=== PATIENT | female | born 1950 | race Caucasian/White ===

== ENCOUNTER 2024-08-15 15:08 | Emergency (ER) | payer MEDICARE, SELFPAY ==
--- NOTE | ~2024-08-15 | XR_ITS ---
EXAMINATION: XR shoulder RT min 2V DATE: 08/15/2024 16:23 INDICATION: Right shoulder injury. TECHNIQUE: 4 views of right shoulder were obtained. COMPARISON: None. FINDINGS: There is superior subluxation of humeral head with narrowing of the subacromial space, cons istent with rotator cuff tear. No fracture. There is mild osteoarthritis of acromioclavicular joint a nd severe osteoarthritis of glenohumeral joint. Median sternotomy wires are noted. IMPRESSION: 1. Polyarticular osteoarthritis. 2. Rotator cuff tear. Reviewed, dictated and finalized at location A.
--- NOTE | ~2024-08-15 | XR_ITS ---
EXAMINATION: XR hip RT min 3V w AP pelvis DATE: 08/15/2024 16:23 INDICATION: Right hip injury. TECHNIQUE: 2 views of right hip were obtained. COMPARISON: None. FINDINGS: There is lumbar levocurvature and severe spondylosis. No fracture. Right hip joint space is normal. IMPRESSION: 1. No fracture. Reviewed, dictated and finalized at location A. IMPRESSION: 1. No fracture.
--- NOTE | ~2024-08-15 | XR_ITS ---
XR hand RT min 3V Ordering provider: Gisselle Renteria APRN History: . trauma . Comparison: None. FINDINGS: BONES: No acute fracture. Osteopenia of the bones Loss of volume of the trapezoid bone. JOINT SPACES: Subluxation seen in the distal interphalangeal joints of the first, second and fifth fi ngers. Osteoarthritic changes of the first carpometacarpal joint, proximal, and distal interphalangea l joints. SOFT TISSUES: Vascular calcifications. IMPRESSION: No acute osseous abnormality right hand. Osteopenia of the bones. Polyarticular osteoarthritic changes. Polyarticular osteoarthritic changes. Reviewed, dictated and finalized at location A.
--- NOTE | ~2024-08-15 | XR_ITS ---
EXAMINATION: XR knee RT 3V DATE: 08/15/2024 16:24 INDICATION: Right knee injury. TECHNIQUE: 4 views of right knee were obtained. COMPARISON: None. FINDINGS: Alignment is normal. No fracture. There is moderate osteoarthritis and medial lateral negrito rtments and mild osteoarthritis of patellofemoral compartment. There is a moderate-sized knee joint e ffusion. IMPRESSION: 1. Moderate right knee osteoarthritis. 2. Moderate-sized right knee joint effusion. Reviewed, dictated and finalized at location A.
[2024-08-15 15:24] VITALS: BP 163/90; PULSE 58; RESP 18; TEMP 36.2; O2SAT 100
--- NOTE | 2024-08-15 15:27 | ED.EXTPRO ---
HPI - Extremity Problem General Chief complaint: Extremity Injury, Lower Stated complaint: pt fell Time Seen by Provider: 08/15/24 15:45 Source: patient, family, RN notes reviewed and old records reviewed Mode of arrival: ambulatory Limitations: no limitations History of Present Illness HPI Narrative: patient presents status post fall. Patient reportedly had a same level trip and fall accident approximately 2 hours prior to arrival. She is complaining of right shoulder pain, right knee pain, right hip pain, right hand pain. She has significant bruising to the right hip, right hand, right knee. She denies head trauma. She denies any neck pain. Patient does take Plavix, reports easy bruising. Denies any loss of consciousness. No other concerns or complaints at this time. She has not had any pain medication or ice prior to arrival Related Data Home Medications Medication Instructions Recorded Confirmed alendronate 70 mg tablet mg PO 08/15/24 allopurinol 100 mg tablet mg 08/15/24 carvedilol 6.25 mg tablet mg 08/15/24 clopidogrel 75 mg tablet mg 08/15/24 fluorouracil 5 % topical cream applic topical 08/15/24 lisinopril 2.5 mg tablet mg 08/15/24 methenamine hippurate 1 gram tablet g 08/15/24 mycophenolate sodium 180 mg mg PO 08/15/24 tablet,delayed release rosuvastatin 10 mg tablet mg 08/15/24 tacrolimus 0.5 mg capsule, mg 08/15/24 immediate-release Allergies Allergy/AdvReac Type Severity Reaction Status Date / Time atorvastatin [From Lipitor] Allergy Rash Verified 08/15/24 15:55 quinine AdvReac Nausea and Verified 08/15/24 15:56 Vomiting Review of Systems Review of Systems: All systems reviewed & are unremarkable except as noted in HPI and below Constitutional: Constitutional: Reports no additional constitutional complaints and Reports body ache(s) ( generalized status post fall) ENT: Reports system reviewed and no additional complaints, except as documented Cardiovascular: Cardiovascular: Reports no additional cardiovascular complaints Respiratory: Respiratory: Reports no additional respiratory complaints Gastrointestinal: Gastrointestinal: Reports no additional gastrointestinal complaints Musculoskeletal: Musculoskeletal: Reports no additional musculoskeletal complaints, Reports as per HPI, Reports arthralgias and Reports joint swelling Integumentary/Breasts: Skin/Breast: Reports system reviewed and no additional complaints, except as docu and Reports as per HPI Comments: hematoma right hip, bruising to right knee. Bruising to right hand PMFSH Comments At the time of my signature, I reviewed and agree with the nursing past medical, surgical, social, and family history. There is no relevant family history pertinent to the patient complaint. Exam Const: General: cooperative, no acute distress, alert and awake Orientation/consciousness: oriented to person, oriented to place and oriented to time HENMT: Head: normal to inspection, normocephalic and atraumatic Resp: Effort & Inspection: normal respiratory effort and able to speak in complete sentences Auscultation: clear to auscultation bilaterally, no crackles, no rales, no rhonchi and no wheezes Cardio: Palpation: normal PMI Rate: regular rate Rhythm: regular rhythm Heart sounds: S1 normal heart sound present and S2 normal heart sound present Skin: Trauma: other ( hematoma right hip, bruising right knee, bruising right hand) Wounds: wounds noted ( skin tear left ankle, U shaped, approximately 4 cm) Neuro: General: oriented to person, oriented to place and oriented to time Cranial nerves: Yes CN's II-XII intact bilaterally Extrem: Right upper extremity: Extremity exam: right hand tenderness of the palm and of the thumb, swelling and ecchymosis of the palm and of the thumb Right lower extremity: hip/thigh Details: tenderness Location: of the hip Location: posterolaterally and other ( hematoma) and knee Details: ecchymosis (
[2024-08-15] MEDS: ACETAMINOPHEN 500 MG TABLET 1000 MG PO (16:44)
== END 2024-08-15 17:31 | disposition home or self-care (01) ==
PROVIDERS: Emergency Provider Nurse Practitioner Family; PCP Physician Assistant
DX: S91.012A Laceration without foreign body, left ankle, initial encounter (principal); W01.0XXA Fall on same level from slipping, tripping and stumbling without subsequent striking against object, initial encounter; S46.001A Unspecified injury of muscle(s) and tendon(s) of the rotator cuff of right shoulder, initial encounter; Z79.01 Long term (current) use of anticoagulants; I10 Essential (primary) hypertension; M81.0 Age-related osteoporosis without current pathological fracture; Z95.5 Presence of coronary angioplasty implant and graft; Z94.0 Kidney transplant status
CPT/HCPCS: 73030; 73130; 73502; 73562; 99214; A4565; A9270; G0463

== ENCOUNTER 2025-03-13 10:43 | Outpatient (NON) | payer MEDICARE, SELFPAY ==
--- OUTSIDE RECORDS SUMMARY | 2025-03-13 11:00 | XMS_ITS | Encounter Summary ---
Author Organization [facility] Address [address] [place] [address] Phone Care Team Providers Care Squad Sergeant Name Role Phone Lo Arenas RN Unavailable [phone] Bunny Hoyos MD Unavailable [phone] Nidhi Nichols Primary Care Provider [phone] Chadwick Benavides MD Unavailable [phone] Bryan English MD Unavailable [phone] Encounter Details Date Type Department Care Team (Latest Contact Info) Description 09/30/2020 Orders Only [facility] Scanning, Provider Social History Tobacco Use Types Packs/Day Years Used Date Smoking Tobacco: Never Smokeless Tobacco: Never Alcohol Use Standard Drinks/Week Comments Never 0 (1 standard drink = 0.6 oz pur e alcohol) AUDIT-C Answer Date Recorded Frequency of Alcohol Consumption Never 03/21/2019 Average Number of Drinks Not on file 019 Frequency of Binge Drinking Not on file 03/06 Comments Unknown Sex and Gender Information Value Date Recorded Sex Assigned at Not on file Legal Sex Female 11:06 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 Gender Identity Female 05/12/2021 9:18 PM CDT Sexual Orientation Straight 02/10/2020 9: 45 AM CDT documented as of this encounter Plan of Treatment Not on file documented as of this encounter Procedures Procedure Name Priority Date/Time Associated Diagnosis Comments CARDIOLOGY DOCUMENT SCAN 09/30/2020 documented in this encounter Results * SCAN - CARDIOLOGY (09/30/2020) Anatomical Region Laterality Modality Other us Provider Scanning CV CARDIAC SERVICES PROCEDURES Final Result documented in this encounter Visit Diagnoses Not on filedocumented in this encounter Additional Health Concerns Infection Onset Date Last Indicated Resolved Time COVID: Suspected 12/26/2024 12/26/2024 12/26/2024 7:03 PM OLAP DEVELOPER Ring Surveillance Comment:01/12/2025- [id number] C. Auris ring surveillance. Tamie Koch 01/12/2025 01/12/2025 01/25/2025 2:00 PM C DT documented as of this encounter Care Teams Squad Sergeant Relationship Specialty Start Date End Date ParentNidhi PA [address] [facility] [address] [place] [address] PCP - General Family Practice 02/17/23 Lo Arenas RN [address] [facility] [address] [place] [address] Registered Nurse 04/10/18 Bunny Hoyos MD [address] [place] [address] Referring Physician General Surgery 03/11/21 11/15/23 Chadwick Benavides MD [address] [facility] [address] [place] [address] Referring Physician Cardiovascular Disease 04/19/23 Bryan English MD [address] [place] [address] Consulting Physician Cardiology 02/03/25 documented as of this encounter
--- OUTSIDE RECORDS SUMMARY | 2025-03-13 11:01 | XMS_ITS ---
Author Organization [facility] Address [address] [place] [address] Care Team Providers Care Manager Documentation Name Role Phone Unavailable Unavailable Unavailable Allergies, Adverse Reactions, Alerts This patient has no known allergies or adverse reactions. Problems This patient has no known problems.
--- OUTSIDE RECORDS SUMMARY | 2025-03-13 11:01 | XMS_ITS | Clinical Summary ---
Author Organization [facility] Address [facility] [place] [address] Care Team Providers Care Yarn Cleaner Name Role Phone Unavailable Primary Care Provider Unavailabl e Source Comments [facility],non-[place] Affiliates and Associated Physician Practices is amultiple site organization consisting of ambulatory clinics and hospital sitesin [place], [place]. This disclosure is being madepursuant to the Care Everywhere program and may not contain all information available regarding this patient. Last updated 18.[facility] Social History Tobacco Use Types Packs/Day Years Used Date Smoking Tobacco: Never Assessed Comments Unknown Sex and Gender Information Value Date Recorded Sex Assigned at Not on file Legal Sex Female 12:00 PM MILL SUPERVISOR Gender Identity Not on file Sexual Orientation Not on file Plan of Treatment Health Maintenance Due Date Last Done Comments BONE DENSITY TESTING 1950 COLOGUARD (AGES 45-75) - COL ON CA SCREENING 1949 COLON MONITORING 1949 COLONOSCOPY - COLON CA SCREENING 1949 CT COLONOGRAPHY - COLON CA SCREENING 1950 Colorectal Cancer Screening 1949 FIT - COLON CA SCREENING 1949 FLEX SIG - COLON CA SCREENING 1949 LIPID TESTING 1950 MAMMOGRAM 1949 HEPATITIS C SCREENING 11/18/1967 DTAP/TDAP/TD VACCINES (1 - Tdap) 1968 PNEUMOCOCCAL VACCINE 50+ (1 of 1 - PCV) 1999 ZOSTER VACCINE (1 of 2) 1999 COVID-19 VACCINE (1 - 2024-2 5 season) 2024 DEPRESSION SCREENING 11/06/2024 Respiratory Syncytial Virus (RSV) Vaccine Pt: or over 60 yrs (1 - 1-dose 75+ series) 2024 INFLUENZA VACCINE (Season Ended) 2025 HEPATITIS B VACCINE Aged Out No longe r eligible based on patient's age to complete this topic HIB VACCINE Aged Out No longer eligi ble based on patient's age to complete this topic HPV VACCINE Aged Out No longer eligi ble based on patient's age to complete this topic MENINGOCOCCAL (Group B) VACC INE SHARED DECISION-MAKING Aged Out No longer eligibl e based on patient's age to complete this topic MENINGOCOCCAL GROUPS A/C/Y/W VACCINE Aged Out No longer eligible b ased on patient's age to complete this topic Insurance MEDICARE [facility]
--- OUTSIDE RECORDS SUMMARY | 2025-03-13 11:01 | XMS_ITS | Encounter Summary ---
Author Organization [facility] Address [address] [place] [address] Phone Care Team Providers Care Plastic Welding Machine Operator Name Role Phone Lo Arenas RN Unavailable [phone] Bunny Hoyos MD Unavailable [phone] Nidhi Nichols Primary Care Provider [phone] Chadwick Benavides MD Unavailable [phone] Bryan English MD Unavailable [phone] Encounter Details Date Type Department Care Team (Latest Contact Info) Description 02/16/2021 Orders Only [facility] Scanning, Provider Social History Tobacco Use Types Packs/Day Years Used Date Smoking Tobacco: Never Smokeless Tobacco: Never Alcohol Use Standard Drinks/Week Comments Never 0 (1 standard drink = 0.6 oz pur e alcohol) AUDIT-C Answer Date Recorded Q1: How often do you have a drink containing alc ohol? Never 01/15/2021 Average Number of Drinks Not on file 021 Q3: How often do you have si x or more drinks on one occasion? Never 01/15/2021 Comments Unknown Sex and Gender Information Value Date Recorded Sex Assigned at Not on file Legal Sex Female 11:06 AM CDL PROGRAM COORDINATOR Gender Identity Female 05/12/2021 9:18 PM CDT Sexual Orientation Straight 02/10/2020 9: 45 AM CDT documented as of this encounter Plan of Treatment Not on file documented as of this encounter Procedures Procedure Name Priority Date/Time Associated Diagnosis Comments CARDIOLOGY DOCUMENT SCAN 02/16/2021 documented in this encounter Results * SCAN - CARDIOLOGY (02/16/2021) Anatomical Region Laterality Modality Other us Provider Scanning CV CARDIAC SERVICES PROCEDURES Final Result documented in this encounter Visit Diagnoses Not on filedocumented in this encounter Additional Health Concerns Infection Onset Date Last Indicated Resolved Time COVID: Suspected 12/26/2024 12/26/2024 12/26/2024 7:03 PM CDL PROGRAM COORDINATOR Ring Surveillance Comment:01/12/2025- [id number] C. Auris ring surveillance. Tamie Koch 01/12/2025 01/12/2025 01/25/2025 2:00 PM C DT documented as of this encounter Care Teams Plastic Welding Machine Operator Relationship Specialty Start Date End Date ParentNidhi PA [address] [facility] [address] [place] [address] PCP - General Family Practice 02/17/23 Lo Arenas, ERIKA [address] [facility] [address] [place] [address] Registered Nurse 04/10/18 Bunny Hoyos MD [address] [place] [address] Referring Physician General Surgery 03/11/21 11/15/23 Chadwick Benavides MD [address] [place] [address] [facility] [address] [place] [address] Referring Physician Cardiovascular Disease 04/19/23 Bryan English MD [address] [facility] [address] [place] [address] Consulting Physician Cardiology 02/03/25 documented as of this encounter
--- OUTSIDE RECORDS SUMMARY | 2025-03-13 11:02 | XMS_ITS ---
Author Organization [facility] Address [address] [place] [address] Care Team Providers Care Spare Hand Name Role Phone Lo Arenas RN Unavailable [phone] Nidhi Nichols Primary Care Provider [phone] Chadwick Benavides MD Unavailable [phone] Bryan English MD Unavailable Transplant Episode Kidney Recipient ([place], [place]) [facility] Organ Received: Left Kidney Transplanted on 10/08/2012 Marked as Active Follow-up on 10/08/2012 Kidney CoordinatorLo Arenas RN Fax: N/A Email: N/A [place] Organ Diagnosis Organ Primary Contributory Kidney Hypertensive Nephrosclerosis Retransplant Diagnosis Organ Primary Contributory Kidney Hypertensive Nephrosclerosis Infection History Noted Survival Infection Treatment Organism Resolved 08/23/2022 9 years 10 months COVID-19 09/20/2020 7 years 11 months COVID-19 0 03/10/2021 09/04/2018 5 years 10 months URI (upper res piratory infection) 03/10/2021 02/07/2013 122 days Cytomegalovirus infection (HCC) 10/24/2012 16 days Urinary tract infection Donor Information Organ ABO Source Meets Risk Criteria HLA Match Mismatches Cross Match Left Kidney Transplanted B Live A: B: DR: T cell (Negative) T cell (Negative) B cell (Negative) B cell (Negative) T cell (Negative) Left Kidney Donor Serology Results Anti-CMV No results on file EBV IgG No results on file Anti-HBcAb HBC Total: Negative HBsAg HBsAg: Negative HBV DNA No results on file Anti-HCV No results on file Anti-HIV I/II No results on file Anti-HTLV I/II No results on file RPR/VDRL No results on file EBV IgM No results on file HBsAb No results on file EBNA No results on file SARS CoV-2 No results on file Care Team Name Role Phone Fax Email Lo Arenas RN Kidney Coordinator [phone] N/A N/A Radha Lou RN Secondary Coordinator Secondary Kidney Coordinator N/A N/A N/A Lo Arenas, melter casterResearch Physicist [phone] N/A N/A Darleen Coughlin Secondary Production Intern N/A N/A N/A Heron Guajardo Primary Production Intern N/A N/A N/A Marisela Brewster Duct Cleaner [phone] N/A N/A Events Post-Transplant Pre-Transplant Admitted: 10/08/2012 Referred: 07/02/2010 Transplanted: 10/08/2012 Evaluation began: 1 Discharged: 10/19/2012 Center waitlisted: 1 Appointments (02/11/2025 - 04/13/2025) When With Visit Type Description 02/17/2025 Transplant - Johnny, Haydee Return Enco unter for aftercare following kidney transplant (Primary Dx); High risk medication use; At high risk for infection; Hypertension, unspecified type 02/28/2025 Transplant Return Encounter for a ftercare following kidney transplant (Primary Dx); Encounter for long-term current use of high risk medication; Primary hypertension; Anemia in chronic kidney disease, unspecified CKD stage; NICM (nonischemic cardiomyopathy) (HCC); Mitral regurgitation, acute; Renal osteodystrophy; S/P parathyroidectomy; Osteoporosis, unspecified osteoporosis type, unspecified pathological fracture presence Dialysis History Dialysis History Start End Type Comments Center 01/11/2006 10/08/2012 Peritoneal [facility] Dialysis Center Information Center Phone Fax Address [facility] [phone] [address] [facility] [address]
--- OUTSIDE RECORDS SUMMARY | 2025-03-13 11:02 | XMS_ITS | Clinical Summary ---
Author Organization Unknown Care Team Providers Care Manager System Name Role Phone PARENT MASHA THAPA Unavailable Unavailable GEMA PHYSICAL THERAPIST, RAJEEV Unavailable Unavailable BLANKA LOAN TELLER, ANTONIA Coon ailable Unavailable ASHLEY REGISTERED NURSE SENIOR NUCLEAR MEDICINE TECHNOLOGIST, MARSHA Brantley vailable Unavailable ARGUETA OCCUPATIONAL THERAPIST, SANCHEZ Unavailable Unavailable Payers Payer Name Policy Type Policy Number Effective Date Expira tion Date [employer] MEDICARE OON - EPISODIC NO AUTH Problems Condition Name Condition Details Condition Category Status Onset Date Resolution Date Last Treatment Date Treating Clinician Comments 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 11-06 00:00: 00 HYP HRT AND CHR KDNY DIS W HRT FAIL AND STG 1-4/UNSP CHR KDNY Active 11-06 00:00: 00 ACUTE ON CHRONIC SYSTOLIC (CONGESTIVE) HEART FAILURE Active 11-06 00:00: 00 ACUTE DIASTOLIC (CONGESTIVE) HEART FAILURE Active 11-06 00:00: 00 CHRONIC KIDNEY DISEASE, STAGE 3A Active 11-06 00:00: 00 ANEMIA IN CHRONIC KIDNEY DISEASE Active 11-06 00:00: 00 ACUTE KIDNEY FAILURE, UNSPECIFIED Active 11-06 00:00: 00 ATHSCL HEART DISEASE OF [place] CORONARY ARTERY W/O ANG PCTRS Active 11-06 00:00: 00 OLD MYOCARDIAL INFARCTION Active 11-06 00:00: 00 HYPERKALEMIA Active 11-06 00:00: 00 HYPOCALCEMIA Active 11-06 00:00: 00 SECONDARY HYPERPARATHY ROIDISM, NOT ELSEWHERE CLASSIFIED Active - 00:00: 00 THROMBOCYTOP ENIA, UNSPECIFIED Active 11-06 00:00: 00 POLYNEUROPAT HY, UNSPECIFIED Active 11-06 00:00: 00 IRON DEFICIENCY ANEMIA, UNSPECIFIED Active 11-06 00:00: 00 MONOCLONAL GAMMOPATHY Active 11-06 00:00: 00 GOUT, UNSPECIFIED Active 11-06 00:00: 00 INSOMNIA, UNSPECIFIED Active 11-06 00:00: 00 RETENTION OF URINE, UNSPECIFIED Active 11-06 00:00: 00 PREDIABETES Active 11-06 00:00: 00 PRESENCE OF AORTOCORONAR Y BYPASS GRAFT Active 11-06 00:00: 00 PRESENCE OF CORONARY ANGIOPLASTY IMPLANT AND GRAFT Active 11-06 00:00: 00 PRESENCE OF AUTOMATIC (IMPLANTABLE ) CARDIAC DEFIBRILLATO R Active 11-06 00:00: 00 KIDNEY TRANSPLANT STATUS Active 11-06 00:00: 00 ACQUIRED ABSENCE OF KIDNEY Active 11-06 00:00: 00 PERSONAL HISTORY OF OTHER MALIGNANT NEOPLASM OF KIDNEY Active 11-06 00:00: 00 PERSONAL HISTORY OF URINARY (TRACT) INFECTIONS Active 11-06 00:00: 00 PERSONAL HISTORY OF COVID-19 Active 11-06 00:00: 00 ASSISTED (CURRENT) USE OF BISPHOSPHONA MAY Active 11-06 00:00: 00 SCANNER OPERATOR (CURRENT) USE OF ANTITHROMBOT ICS/ANTIPLAT ELETS Active 11-06 00:00: 00 ASSISTED (CURRENT) USE OF ANTIBIOTICS Active 11-06 00:00: 00 ASSISTED (CURRENT) USE OF INHIBTR OF NUCLEOTIDE SYNTHESIS Active 11-06 00:00: 00 SCANNER OPERATOR (CURRENT) USE OF SYSTEMIC STEROIDS Active 11-06 00:00: 00 ASSISTED (CURRENT) USE OF CALCINEURIN INHIBITOR Active 11-06 00:00: 00 Allergies, Adverse Reactions, Alerts Allergy Name Allergy Type Status Severity Reaction(s) Onset Date Inactive Date Treating Clinician Comments ADHESIVE Propensity to adverse reactions Active 01-19 15:32: 47 ATORVASTATIN Propensity to adverse reactions Active 01-19 15:32: 58 CODEINE Propensity to adverse reactions Active 01-19 15:33: 07 TRIMETHOPRIM Propensity to adverse reactions Active 01-19 15:33: 22 QUININE Propensity to adverse reactions Active 01-19 15:33: 31 Medications Ordered Medication Name Filled Medication Name Start Date Stop Date Current Medication? Ordering Clinician Indication Dosage Frequency Signature (SIG) Comments Components acetaminoph en ER 650 mg tablet,exte nded release 02-05 00:00: 00 Yes [id number] PAIN 1 tablet EVERY 8 HOURS 1 tablet EVERY 8 HOURS (route: oral) Med Classific ation: Analgesic , Anti-infl ammatory or Antipyret ic alendronate 70 mg tablet 02-05 00:00: 00 Yes [id number] OSTEOPOROSI S 1 tablet EVERY OTHER WEEK 1 tablet EVERY OTHER WEEK (route: oral) Med Classific ation: Endocrine allopurinol 100 mg tablet 02-05 00:00: 00 Yes [id number] LOWER URIC ACID LEVELS 0.5 tablet EVERY OTHER DAY 0.5 tablet EVERY OTHER DAY (route: oral) Med Classific ation: Gout and Hyperuric emia Therapy calcitriol 0.25 mcg capsule 02-05 00:00: 00 Yes [id number] HTN 1 capsule DAILY 1 capsule DAILY (route: oral) Med Classific ation: Electroly te Balance-N utritiona l Products clopidogrel 75 mg tablet 02-05 00:00: 00 Yes [id number] BLOOD CLOT PREVENTION 1 tablet DAILY 1 tablet DAILY (route: oral) Med Classific ation: Hematolog ical Agents Coreg 6.25 mg tablet 02-05 00:00: 00 Yes [id number] HTN 1 tablet 2 TIMES DAILY 1 tablet 2 TIMES DAILY (route: oral) Med Classific ation: Cardiovas cular Therapy Agents Crestor 10 mg tablet 02-05 00:00: 00 Yes [id number] HIGH CHOLESTEROL 1 tablet DAILY 1 tablet DAILY (route: oral) Med Classific ation: Cardiovas cular Therapy Agents Full Spectrum B-Vitamin C 0.8 mg tablet 02-05 00:00: 00 Yes [id number] SUPPLEMENT 1 tablet DAILY 1 tablet DAILY (route: oral) Med Classific ation: Electroly te Balance-N utritiona l Products furosemide 40 mg tablet 02-05 00:00: 00 Yes [id number] FLUID RETENTION 1 tablet DAILY 1 tablet DAILY (route: oral) Med Classific ation: Cardiovas cular Therapy Agents gabapentin 100 mg capsule 02-05 00:00: 00 Yes [id number] NEUROPATHY Per instruc tions DIRECTED Per instructio ns DIRECTED (route: oral) Med Classific ation: Central Nervous System Agents isosorbide dinitrate 10 mg tablet 02-05 00:00: 00 03-05 23:59 :00 No [id number] HF 1 tablet 3 TIMES DAILY 1 tablet 3 TIMES DAILY (route: oral) Med Classific ation: Cardiovas cular Therapy Agents Lokelma 10 gram oral powder packet 02-05 00:00: 00 Yes [id number] HIGH POTASSIUM LEVELS 1 powder in packet DAILY 1 powder in packet DAILY (route: oral) Med Classific ation: Electroly te Balance-N utritiona l Products melatonin 5 mg capsule 02-05 00:00: 00 Yes [id number] SLEEP AID 1 capsule BEDTIME 1 capsule BEDTIME (route: oral) Med Classific ation: Central Nervous System Agents methenamine hippurate 1 gram tablet 02-05 00:00: 00 Yes [id number] UTI PREVENTION 0.5 tablet DAILY 0.5 tablet DAILY (route: oral) Med Classific ation: Genitouri nary Therapy mycophenola te sodium 180 mg tablet,damon yed release 02-05 00:00: 00 Yes [id number] ORGAN REJECTION PREVENTION 1 tablet DAILY 1 tablet DAILY (route: oral) Med Classific ation: Immunosup pressive Agents prednisone 5 mg tablet 02-05 00:00: 00 Yes [id number] ORGAN REJECTION PREVENTION 1 tablet DAILY 1 tablet DAILY (route: oral) Med Classific ation: Endocrine Senna Lax 8.6 mg tablet 02-05 00:00: 00 Yes [id number] CONSTIPATIO N 1 tablet 2 TIMES DAILY 1 tablet 2 TIMES DAILY (route: oral) Med Classific ation: Gastroint estinal Therapy Agents tacrolimus XL 0.5 mg capsule,ext ended release 24 hr 02-05 00:00: 00 Yes [id number] ORGAN REJECTION PREVENTION Per instruc tions DIRECTED Per instructio ns DIRECTED (route: oral) Med Classific ation: Immunosup pressive Agents tramadol 50 mg tablet 02-05 00:00: 00 Yes [id number] PAIN 1 tablet EVERY 6 HOURS 1 tablet EVERY 6 HOURS (route: oral) Med Classific ation: Analgesic , Anti-infl ammatory or Antipyret ic trazodone 50 mg tablet 02-05 00:00: 00 Yes [id number] SLEEP AID 0.5 tablet DAILY 0.5 tablet DAILY (route: oral) Med Classific ation: Central Nervous System Agents Tums 200 mg (as calcium carbonate 500 mg) chewable tablet 02-05 00:00: 00 Yes [id number] INDIGESTION 2 tablet DAILY 2 tablet DAILY (route: oral) Med Classific ation: Gastroint estinal Therapy Agents Vitamin D3 50 mcg (2,000 unit) capsule 02-05 00:00: 00 Yes [id number] SUPPLEMENT 1 capsule DAILY 1 capsule DAILY (route: oral) Med Classific ation: Electroly te Balance-N utritiona l Products Xanax 0.25 mg tablet 02-05 00:00: 00 Yes [id number] ANXIETY 1 tablet 3 TIMES DAILY 1 tablet 3 TIMES DAILY (route: oral) Med Classific ation: Central Nervous System Agents Immunizations Ordered Immunization Name Filled Immunization Name Date Status Comments Refusal Reason INFLUENZA OFFERED AND DECLINED, TIV (INACTIVATED) 2025-02-06 00:00:00 PNEUMOCOCCAL - DISCUSSED AND DECLINED, PPV 2025-02-06 00:00:00 Vital Signs Vital Name Observation Time Observation Value Commen ts Temperature 2025-03-10 10:46:00.000 97.6 [degF] Temperature 2025-03-10 09:06:00.000 98.1 [degF] Temperature 2025-03-06 10:43:00.000 97.5 [degF] Temperature 2025-03-06 09:11:00.000 97.9 [degF] Temperature 2025-03-03 09:00:00.000 98.5 [degF] Temperature 2025-02-27 09:29:00.000 98.2 [degF] Temperature 2025-02-24 12:02:00.000 98.3 [degF] Temperature 2025-02-24 09:13:00.000 98.1 [degF] Temperature 2025-02-20 09:34:00.000 98.9 [degF] Temperature 2025-02-19 10:52:00.000 97.6 [degF] Temperature 2025-02-17 09:07:00.000 98.4 [degF] Temperature 2025-02-13 09:25:00.000 97.4 [degF] Temperature 2025-02-12 12:59:00.000 97.7 [degF] Temperature 2025-02-11 10:31:00.000 98 [degF] Temperature 2025-02-10 17:36:00.000 99.1 [degF] Temperature 2025-02-10 14:47:00.000 99.2 [degF] Temperature 2025-02-06 11:00:00.000 97.4 [degF] BMI (%) 2025-02-06 11:00:00.000 28 kg/m2 Height 2025-02-06 11:00:00.000 64 [in_us] Pulse 2025-03-10 10:46:00.000 66 /min Pulse 2025-03-10 09:06:00.000 64 /min Pulse 2025-03-06 10:43:00.000 74 /min Pulse 2025-03-06 09:11:00.000 64 /min Pulse 2025-03-03 09:00:00.000 76 /min Pulse 2025-02-27 09:29:00.000 80 /min Pulse 2025-02-24 12:02:00.000 60 /min Pulse 2025-02-24 09:13:00.000 66 /min Pulse 2025-02-20 09:34:00.000 68 /min Pulse 2025-02-19 10:52:00.000 60 /min Pulse 2025-02-17 09:07:00.000 67 /min Pulse 2025-02-13 09:25:00.000 62 /min Pulse 2025-02-12 12:59:00.000 64 /min Pulse 2025-02-11 10:31:00.000 75 /min Pulse 2025-02-10 17:36:00.000 74 /min Pulse 2025-02-10 14:47:00.000 74 /min Pulse 2025-02-06 11:00:00.000 63 /min O2 Saturation (%) 2025-03-10 10:46:00.000 98 % O2 Saturation (%) 2025-03-10 09:06:00.000 99 % O2 Saturation (%) 2025-03-06 10:43:00.000 98 % O2 Saturation (%) 2025-03-06 09:11:00.000 98 % O2 Saturation (%) 2025-03-03 09:00:00.000 95 % O2 Saturation (%) 2025-02-27 09:29:00.000 98 % O2 Saturation (%) 2025-02-24 12:02:00.000 94 % O2 Saturation (%) 2025-02-24 09:13:00.000 96 % O2 Saturation (%) 2025-02-20 09:34:00.000 98 % O2 Saturation (%) 2025-02-19 10:52:00.000 98 % O2 Saturation (%) 2025-02-17 09:07:00.000 96 % O2 Saturation (%) 2025-02-13 09:25:00.000 93 % O2 Saturation (%) 2025-02-12 12:59:00.000 94 % O2 Saturation (%) 2025-02-11 10:31:00.000 95 % O2 Saturation (%) 2025-02-10 17:36:00.000 98 % O2 Saturation (%) 2025-02-10 14:47:00.000 95 % O2 Saturation (%) 2025-02-06 11:00:00.000 91 % Respirations 2025-03-10 10:46:00.000 18 /min Respirations 2025-03-10 09:06:00.000 18 /min Respirations 2025-03-06 10:43:00.000 16 /min Respirations 2025-03-06 09:11:00.000 18 /min Respirations 2025-03-03 09:00:00.000 17 /min Respirations 2025-02-27 09:29:00.000 20 /min Respirations 2025-02-24 12:02:00.000 18 /min Respirations 2025-02-24 09:13:00.000 18 /min Respirations 2025-02-20 09:34:00.000 20 /min Respirations 2025-02-19 10:52:00.000 18 /min Respirations 2025-02-17 09:07:00.000 18 /min Respirations 2025-02-13 09:25:00.000 18 /min Respirations 2025-02-12 12:59:00.000 18 /min Respirations 2025-02-11 10:31:00.000 16 /min Respirations 2025-02-10 17:36:00.000 20 /min Respirations 2025-02-10 14:47:00.000 18 /min Respirations 2025-02-06 11:00:00.000 20 /min Weight (lbs) 2025-03-10 09:06:00.000 149.8 [lb_av] Weight (lbs) 2025-03-06 09:11:00.000 152.8 [lb_av] Weight (lbs) 2025-03-03 09:00:00.000 155.4 [lb_av] Weight (lbs) 2025-02-27 09:29:00.000 157.8 [lb_av] Weight (lbs) 2025-02-24 09:13:00.000 160 [lb_av] Weight (lbs) 2025-02-20 09:34:00.000 163 [lb_av] Weight (lbs) 2025-02-19 10:57:00.000 162.2 [lb_av] Weight (lbs) 2025-02-17 09:07:00.000 161 [lb_av] Weight (lbs) 2025-02-13 09:25:00.000 162.2 [lb_av] Weight (lbs) 2025-02-12 13:13:00.000 162 [lb_av] Weight (lbs) 2025-02-10 17:36:00.000 164.4 [lb_av] Weight (lbs) 2025-02-06 11:00:00.000 165 [lb_av] Systolic Blood Pressure 2025-03-10 10:46:00.000 122 mm [Hg] Systolic Blood Pressure 2025-03-10 09:06:00.000 140 mm [Hg] Systolic Blood Pressure 2025-03-06 10:43:00.000 120 mm [Hg] Systolic Blood Pressure 2025-03-06 09:11:00.000 140 mm [Hg] Systolic Blood Pressure 2025-03-03 09:00:00.000 140 mm [Hg] Systolic Blood Pressure 2025-02-27 09:29:00.000 122 mm [Hg] Systolic Blood Pressure 2025-02-24 12:02:00.000 132 mm [Hg] Systolic Blood Pressure 2025-02-24 09:19:00.000 140 mm [Hg] Systolic Blood Pressure 2025-02-20 09:34:00.000 138 mm [Hg] Systolic Blood Pressure 2025-02-19 10:52:00.000 124 mm [Hg] Systolic Blood Pressure 2025-02-17 09:07:00.000 134 mm [Hg] Systolic Blood Pressure 2025-02-13 09:25:00.000 155 mm [Hg] Systolic Blood Pressure 2025-02-12 12:59:00.000 114 mm [Hg] Systolic Blood Pressure 2025-02-11 10:31:00.000 157 mm [Hg] Systolic Blood Pressure 2025-02-10 17:36:00.000 118 mm [Hg] Systolic Blood Pressure 2025-02-10 14:47:00.000 130 mm [Hg] Systolic Blood Pressure 2025-02-06 11:00:00.000 133 mm [Hg] Diastolic Blood Pressure 2025-03-10 10:46:00.000 66 mm [Hg] Diastolic Blood Pressure 2025-03-10 09:06:00.000 82 mm [Hg] Diastolic Blood Pressure 2025-03-06 10:43:00.000 70 mm [Hg] Diastolic Blood Pressure 2025-03-06 09:11:00.000 74 mm [Hg] Diastolic Blood Pressure 2025-03-03 09:00:00.000 66 mm [Hg] Diastolic Blood Pressure 2025-02-27 09:29:00.000 62 mm [Hg] Diastolic Blood Pressure 2025-02-24 12:02:00.000 72 mm [Hg] Diastolic Blood Pressure 2025-02-24 09:19:00.000 88 mm [Hg] Diastolic Blood Pressure 2025-02-20 09:34:00.000 62 mm [Hg] Diastolic Blood Pressure 2025-02-19 10:52:00.000 68 mm [Hg] Diastolic Blood Pressure 2025-02-17 09:07:00.000 72 mm [Hg] Diastolic Blood Pressure 2025-02-13 09:25:00.000 62 mm [Hg] Diastolic Blood Pressure 2025-02-12 12:59:00.000 58 mm [Hg] Diastolic Blood Pressure 2025-02-11 10:31:00.000 58 mm [Hg] Diastolic Blood Pressure 2025-02-10 17:36:00.000 74 mm [Hg] Diastolic Blood Pressure 2025-02-10 14:47:00.000 64 mm [Hg] Diastolic Blood Pressure 2025-02-06 11:00:00.000 53 mm [Hg] Plan of Treatment Planned Activity Planned Date Details Comments Future Scheduled Test [facility] WILL TEACH PATIENT/CAREGIVER ABOUT MITRAL VALVE REPAIR, HOW TO TAKE OWN PULSE AND BP TO TRACK ON A LOG, WHAT STRATEGIES TO USE TO AVOID RE-HOSPITALIZATIONS, AND WARNING SIGNS TO CALL THE AGENCY, PHYSICIAN, OR 911. [code = HOME HEALTH NURSE WILL TEACH PATIENT/CAREGIVER ABOUT MITRAL VALVE REPAIR, HOW TO TAKE OWN PULSE AND BP TO TRACK ON A LOG, WHAT STRATEGIES TO USE TO AVOID RE-HOSPITALIZATIONS, AND WARNING SIGNS TO CALL THE AGENCY, PHYSICIAN, OR 911.] Future Scheduled Test HOME HEALT H NURSE WILL TEACH PATIENT/CAREGIVER ABOUT HEART FAILURE, EDEMA, AND HOW TO WEIGH DAILY AT THE SAME TIME EVERY MORNING AFTER URINATING AND BEFORE BREAKFAST. INSTRUCT PATIENT TO CHECK FOR WEIGHT GAIN CAUSED BY INCREASED FLUID AND CONTACT THE PHYSICIAN IF 2LBS WEIGHT GAIN IN 1 DAY OR 5LBS WEIGHT GAIN IN 1 WEEK. HOME HEALTH RN TO TEACH PATIENT ABOUT WARNING SIGNS TO CONTACT THE AGENCY, PHYSICIAN, OR 911. MAY ADD 2 PRN VISITS PER MONTH FOR SIGNS/SYMPTOMS OF EXACERBATION SUCH INCREASED EDEMA, WEIGHT GAIN, SHORTNESS OF BREATH, OR FATIGUE. [code = HOME HEALTH NURSE WILL TEACH PATIENT/CAREGIVER ABOUT HEART FAILURE, EDEMA, AND HOW TO WEIGH DAILY AT THE SAME TIME EVERY MORNING AFTER URINATING AND BEFORE BREAKFAST. INSTRUCT PATIENT TO CHECK FOR WEIGHT GAIN CAUSED BY INCREASED FLUID AND CONTACT THE PHYSICIAN IF 2LBS WEIGHT GAIN IN 1 DAY OR 5LBS WEIGHT GAIN IN 1 WEEK. HOME HEALTH RN TO TEACH PATIENT ABOUT WARNING SIGNS TO CONTACT THE AGENCY, PHYSICIAN, OR 911. MAY ADD 2 PRN VISITS PER MONTH FOR SIGNS/SYMPTOMS OF EXACERBATION SUCH INCREASED EDEMA, WEIGHT GAIN, SHORTNESS OF BREATH, OR FATIGUE.] Future Scheduled Test HOME HEALT H NURSE TO INSTRUCT ON CHRONIC KIDNEY DISEASE ITS COMPLICATIONS, AND WHEN TO CONTACT THE AGENCY, PHYSICIAN OR 911 [code = HOME HEALTH NURSE TO INSTRUCT ON CHRONIC KIDNEY DISEASE ITS COMPLICATIONS, AND WHEN TO CONTACT THE AGENCY, PHYSICIAN OR 911] Future Scheduled Test PHYSICAL T HERAPIST TO EVALUATE AND TREAT [code = PHYSICAL THERAPIST TO EVALUATE AND TREAT] Future Scheduled Test OCCUPATION AL THERAPIST TO EVALUATE AND TREAT [code = OCCUPATIONAL THERAPIST TO EVALUATE AND TREAT] Future Scheduled Test SKILLED NU RSE TO OBTAIN BMP PER VENIPUNCTURE USING NECESSARY SUPPLIES FOR DIAGNOSIS OF N18.31 ON 02/06/25 THEN EVERY MONDAY AND MONDAY WITH RESULTS FAXED TO DR. MAVERICK TAYLOR OFFICE. [code = SKILLED NURSE TO OBTAIN BMP PER VENIPUNCTURE USING NECESSARY SUPPLIES FOR DIAGNOSIS OF N18.31 ON 02/06/25 THEN EVERY MONDAY AND MONDAY WITH RESULTS FAXED TO DR. MAVERICK TAYLOR OFFICE. ] Future Scheduled Test EACH ORDER ED IN-HOME OR TELEHEALTH VISIT, THE SKILLED NURSE WILL CONDUCT A COMPREHENSIVE ASSESSMENT INCLUDING VITAL SIGNS, PAIN, SAFETY, MENTAL/COGNITIVE/PSYCHOSOCIAL STATUS, MED MANAGEMENT, NUTRITION, SKIN INTEGRITY, PRESSURE ULCER PREVENTION, AND PATIENT/CAREGIVER ABILITY TO SUPPORT ORDERED CARE. SKILLED NURSE WILL INSTRUCT ON DISEASE PROCESS, MED MGMT., FALL PREVENTION AND SAFETY, INFECTION CONTROL AND PREVENTION, WARNING SIGNS, ADDRESS RESULTS OUTSIDE OF ORDERED PARAMETERS LISTED ON CARE PLAN, AND COORDINATE DISCHARGE WITH THE TREATING PROVIDER. MAY ACCEPT ORDERS FROM THE FOLLOWING PROVIDER(S) WHO WILL BE CONSULTING ON THE CERTIFIED CARE PLAN: MASHA THAPA, DR. MAVERICK DAVEY [code = EACH ORDERED IN-HOME OR TELEHEALTH VISIT, THE SKILLED NURSE WILL CONDUCT A COMPREHENSIVE ASSESSMENT INCLUDING VITAL SIGNS, PAIN, SAFETY, MENTAL/COGNITIVE/PSYCHOSOCIAL STATUS, MED MANAGEMENT, NUTRITION, SKIN INTEGRITY, PRESSURE ULCER PREVENTION, AND PATIENT/CAREGIVER ABILITY TO SUPPORT ORDERED CARE. SKILLED NURSE WILL INSTRUCT ON DISEASE PROCESS, MED MGMT., FALL PREVENTION AND SAFETY, INFECTION CONTROL AND PREVENTION, WARNING SIGNS, ADDRESS RESULTS OUTSIDE OF ORDERED PARAMETERS LISTED ON CARE PLAN, AND COORDINATE DISCHARGE WITH THE TREATING PROVIDER. MAY ACCEPT ORDERS FROM THE FOLLOWING PROVIDER(S) WHO WILL BE CONSULTING ON THE CERTIFIED CARE PLAN: MASHA THAPA, DR. MAVERICK DAVEY] Future Scheduled Test THE CER TIFYING PHYSICIAN, ASSOCIATED PHYSICIAN, NPP OR PA WITHIN THE SAME GROUP MAY APPROVE AND SIGN THE ORDER (ON ANY PAGE) ATTESTING THAT THE COMPREHENSIVE OUTCOME ASSESSMENTS, EVALUATIONS, AND HOME HEALTH CERTIFICATION PLANS SUPPORT HOMEBOUND STATUS. HOME HEALTH WEB-PORTAL DOCUMENTATION ACCESSED BY THE PHYSICIAN MUST BE INCORPORATED INTO THE MEDICAL RECORD TO CORROBORATE THE PHYSICIAN, NPP, OR PAS F2F ENCOUNTER TO SUPPORT ELIGIBILITY FOR HOME HEALTH SERVICES. [code = THE CERTIFYING PHYSICIAN, ASSOCIATED PHYSICIAN, NPP OR PA WITHIN THE SAME GROUP MAY APPROVE AND SIGN THE ORDER (ON ANY PAGE) ATTESTING THAT THE COMPREHENSIVE OUTCOME ASSESSMENTS, EVALUATIONS, AND HOME HEALTH CERTIFICATION PLANS SUPPORT HOMEBOUND STATUS. HOME HEALTH WEB-PORTAL DOCUMENTATION ACCESSED BY THE PHYSICIAN MUST BE INCORPORATED INTO THE MEDICAL RECORD TO CORROBORATE THE PHYSICIAN, NPP, OR PAS F2F ENCOUNTER TO SUPPORT ELIGIBILITY FOR HOME HEALTH SERVICES.] Goal Patient Goal - S OC- 02/06/25- TO GET STRONGER AND STAY OUT OF THE HOSPITAL Goal Provider Goal - PATIENT/CAREGIVER WILL DEMONSTRATE HOW TO TAKE AND TRACK OWN PULSE AND BLOOD PRESSURE. PATIENT/CAREGIVER WILL VERBALIZE AN UNDERSTANDING OF THE CARDIAC PROCEDURE, WHAT POST-SURGERY STRATEGIES SHOULD BE FOLLOWED TO AVOID COMPLICATIONS, PROPER MD FOLLOW-UP, AND WARNING SIGNS TO CALL THE PHYSICIAN OR 911 BY THE END OF HOME HEALTH SERVICES. Goal Provider Goal - PATIENT/CAREGIVER WILL DEMONSTRATE AND ADHERE TO WEIGHING DAILY WITH THE USE OF TRACKING LOG. PATIENT WILL VERBALIZE WAYS TO MONITOR FLUID OVERLOAD FROM OWN QUALITY OF SLEEP, EDEMA, TIGHT-FITTING CLOTHES, QUALITY OF BREATHING, AND CHANGES IN FEELING MORE TIRED OR WEEK BY THE END OF HOME HEALTH SERVICES. Goal Provider Goal - PATIENT/CAREGIVER WILL INDEPENDENTLY VERBALIZE THE DEFINITIONS OF CKD, COMPLICATIONS, AND TREATMENTS OF THE DISEASE BY. PATIENT/CAREGIVER WILL INDEPENDENTLY VERBALIZE SYMPTOMS TO REPORT TO THE PHYSICIAN BY THE END OF HOME HEALTH SERVICES. Goal Provider Goal - Goal Provider Goal - Goal Provider Goal - PATIENT/CAREGIVER WILL VERBALIZE UNDERSTANDING OF THE NEED TO COLLECT THE LAB AND TOLERATE THE LAB COLLECTION PROCEDURE WITHOUT INJURY OR INFECTION. Goal Provider Goal - PATIENT WILL BE FREE OF FALLS AND HOSPITALIZATIONS THROUGHOUT EPISODE OF CARE. PATIENT/CAREGIVER WILL UNDERSTAND AND ADHERE TO ORDERED DIET. PATIENT/CAREGIVER WILL INDEPENDENTLY MANAGE MEDICATIONS, UNDERSTAND ANY CHANGES, SIDE EFFECTS TO REPORT BY DISCHARGE. PATIENT WILL BE FREE OF INFECTION AND UNDERSTAND MEASURES OF PREVENTION. PATIENT/CAREGIVER WILL COLLABORATE WITH SKILLED NURSE TO DEVELOP POC AT SOC AND ON AN ONGOING BASIS UPDATES ARE NEEDED. UNDERSTAND PROGRESS MADE/DISCHARGE PLANNING. ADDITIONAL ORDERS WILL BE RECEIVED FROM ALTERNATE PHYSICIANS IN A TIMELY MANNER. Goal Provider Goal - A PLAN OF CARE WILL BE ESTABLISHED THAT MEETS ALL PATIENT'S SENIOR LIVING NEEDS AND COUNTER SIGNED BY PHYSICIAN. Progress Notes Progress Notes <paragraph>[Visit Date: 2024 by MARSHA RAMIREZ REGISTERED NURSE SENIOR NUCLEAR MEDICINE TECHNOLOGIST]:</paragraph><paragraph>PTNT BEING SEEN BY SN FOR RHEUMATIC VALVES. SN GREETED AT DOOR BY PTNT CG. ENTERED HOME TO FIND PTNT RESTING IN RECLINER WITH LEGS DEPENDENT. WALKER NEXT TO HER. PTNT CG PRESENT DURING VISIT. NO FALLS. NO MED CHANGES. LAB RESULTS REVIEWED WITH PTNT. BUN AND CR TRENDING DOWN. PTNT ANOX4, ACTIVELY PARTICIPATING IN CARE WITH PLEASANT AFFECT. COMPREHENSIVE ASSESSMENT COMPLETED. VSS, HR REG, LUNGS CTA, BSX4, ABD SOFT NONTENDER, BM'S NORMAL, LBM 5/3, +2 EDEMA BLE, +2 PEDAL PULSES. PAIN 7/10 LOW BACK. PTNT DENIES, CHEST PAIN, FEVER, CHILLS, AND SOB. SKIN CHECK COMPLETED. PTNT DEMONSTRATES NO BREAKDOWN IN SKIN INTEGRITY. WEIGHT 149.8 LBS PTNT APT 05/19 DR. DAVEY, 06/18 HE SOLIZ NP; 09/10 RUBY FREEMAN/BONE DENSITY SCAN, 09/17 DR. CENTENO, 12/10/25 TAVR ECHO/JUAN GUERRERO NP LABS DRAWN TODAY. SN APPLIED TOURNIQUETTE, CLEANSED SITE AND ALLOWED TO AIR DRY. 23 G BUTTERFLY 1 STICK TO LEFT AC TO COLLECT CBC, RENAL PANEL, AND TACROLIMUS TROUGH IN 2 LAVENDER AND 1 GREEN TUBE. TRANSPORTED IN BIOHAZARD BAG TO [facility]. PTNT STABLE AT DEPARTURE FROM HOME. PTNT/CG VERBALIZED UNDERSTANDING OF ALL EDUCATION PROVIDED. PTNT/CG DENY ADDITIONAL QUESTIONS/CONCERNS AND VERBALIZE SATISFACTION WITH CARE AT END OF VISIT.</paragraph> Encounters Start Date/Time End Date/Time Encounter Type Admission Type Attending [facility] Care Department Encounter ID Discharge Date Discharge Status Discharge Condition Discharge Reason Percent Goals Met 2025-02-06 00:00:00 2025-04-06 00:00:00 Outpatient NEW ADMISSION MARSHA RAMIREZ [facility] [id number]
--- OUTSIDE RECORDS SUMMARY | 2025-03-13 11:02 | XMS_ITS | Encounter Summary ---
Author Organization [facility] Address [address] [place] [address] Phone Care Team Providers Care Farm Implement Engine Mechanic Name Role Phone Lo Arenas RN Unavailable [phone] Bunny Hoyos MD Unavailable [phone] Nidhi Nichols Primary Care Provider [phone] Chadwick Benavides MD Unavailable [phone] Bryan English MD Unavailable [phone] Encounter Details Date Type Department Care Team (Latest Contact Info) Description 10/29/2018 Orders Only [facility] Scanning, Provider Social History Tobacco Use Types Packs/Day Years Used Date Smoking Tobacco: Never Smokeless Tobacco: Never Comments Unknown Sex and Gender Information Value Date Recorded Sex Assigned at Not on file 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 Gender Identity Female 05/12/2021 9:18 PM CDT Sexual Orientation Straight 02/10/2020 9: 45 AM CDT documented as of this encounter Plan of Treatment Not on file documented as of this encounter Procedures Procedure Name Priority Date/Time Associated Diagnosis Comments SCAN - RADIOLOGY/IMAGING 10/29/2018 CARDIOLOGY DOCUMENT SCAN 10/29/2018 documented in this encounter Results * SCAN - RADIOLOGY/IMAGING (10/29/2018) Anatomical Region Laterality Modality Other us Provider Scanning Final Result * SCAN - CARDIOLOGY (10/29/2018) Anatomical Region Laterality Modality Other Provider Scanning [facility] CARDIAC SERVICES PROCEDURES Final Result documented in this encounter Visit Diagnoses Not on filedocumented in this encounter Additional Health Concerns Infection Onset Date Last Indicated Resolved Time COVID: Suspected 12/26/2024 12/26/2024 12/26/2024 7:03 PM 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 [employer] ring surveillance. Tamie Koch 01/12/2025 01/12/2025 01/25/2025 2:00 PM C DT documented as of this encounter Care Teams Farm Implement Engine Mechanic Relationship Specialty Start Date End Date ParentNidhi PA [address] [facility] [address] [place] [address] PCP - General Family Practice 02/17/23 Lo Arenas, RN [address] [facility] [address] [place] [address] Registered Nurse 04/10/18 Bunny Hoyos MD [address] [place] [address] Referring Physician General Surgery 03/11/21 11/15/23 Chadwick Benavides MD [address] [place] [address] [address] [place] [address] Referring Physician Cardiovascular Disease 04/19/23 Bryan English MD [address] [place] [address] Consulting Physician Cardiology 02/03/25 documented as of this encounter
--- OUTSIDE RECORDS SUMMARY | 2025-03-13 11:02 | XMS_ITS | Encounter Summary ---
Author Organization [facility] Address [address] [place] [address] Phone Care Team Providers Care Green Chainer Name Role Phone Lo Arenas RN Unavailable [phone] Bunny Hoyos MD Unavailable [phone] Nidhi Nichols Primary Care Provider [phone] Chadwick Benavides MD Unavailable [phone] Bryan Englsih MD Unavailable [phone] Encounter Details Date Type Department Care Team (Latest Contact Info) Description 10/30/2018 Orders Only [facility] Scanning, Provider Social History Tobacco Use Types Packs/Day Years Used Date Smoking Tobacco: Never Smokeless Tobacco: Never Comments Unknown Sex and Gender Information Value Date Recorded Sex Assigned at Not on file 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 Gender Identity Female 05/12/2021 9:18 PM CDT Sexual Orientation Straight 02/10/2020 9: 45 AM CDT documented as of this encounter Plan of Treatment Not on file documented as of this encounter Procedures Procedure Name Priority Date/Time Associated Diagnosis Comments CARDIOLOGY DOCUMENT SCAN 10/30/2018 documented in this encounter Results * SCAN - CARDIOLOGY (10/30/2018) Anatomical Region Laterality Modality Other us Provider Scanning CV CARDIAC SERVICES PROCEDURES Final Result documented in this encounter Visit Diagnoses Not on filedocumented in this encounter Additional Health Concerns Infection Onset Date Last Indicated Resolved Time COVID: Suspected 12/26/2024 12/26/2024 12/26/2024 7:03 PM TRAVELING 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 [employer] ring surveillance. Tamie Koch 01/12/2025 01/12/2025 01/25/2025 2:00 PM C DT documented as of this encounter Care Teams Green Chainer Relationship Specialty Start Date End Date ParentNidhi PA [address] [place] [address] PCP - General Family Practice 02/17/23 Lo Arenas, RN [address] [facility] [address] [place] [address] Registered Nurse 04/10/18 Bunny Hoyos MD [address] [place] [address] Referring Physician General Surgery 03/11/21 11/15/23 Chadwick Benavides MD [address] [facility] [address] [place] [address] Referring Physician Cardiovascular Disease 04/19/23 Bryan English MD [address] [place] [address] Consulting Physician Cardiology 02/03/25 documented as of this encounter
--- OUTSIDE RECORDS SUMMARY | 2025-03-13 11:02 | XMS_ITS | Data Portability ---
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 air. The anteri or perito chang contou rs are smooth and the root of the mesent deion shows no infilt ration . No enlarg ed lymph nodes. GI tract: The stomac h is mild to modera tely disten ded with retain ed air and fluid partic les. The small bowel loops are unrema rkable . Colon is marked ly redund ant with divert iculos is throug hout and modera te stool retent ion. More pronou nced divert iculos is in the left lower quadra nt. Questi onable minima l hazine ss of fat planes along the distal left colon and the sigmoi d and the left lower quadra nt. Please correl ate clinic ally for pain concer nestor mild divert iculit is. There is no thicke nestor of the bowel wall. There is disten tion of the rectum with mild-t o-mode rate stool. In the depend ent machine wiper ior pelvis superf icial to the tip of the sacrum and coccyx there is soft tissue indura tion. This may be chroni c. Please correl ate for decubi tus. There may be chroni c irregu larity at the tip of the sacrum and coccyx with chroni c inflam mation /infec tion cannot be exclud ed. No abnorm al air pocket s. In the abdomi nal wall there is no mass. There is bulgin g of the latera l abdomi nal wall close to the right flank which may be chroni c and relate d to surger ies. There may be mild edema in the glutea l region s on both sides. Along the spine promin ent degene rative change s with scolio sis. No defini te acute bony abnorm alitie s. Bony pelvis shows no malali gnment . No defini te acute bony abnorm alitie s are seen in the pelvis . =====I MPRESS ION:== === 1 CT scan chest: Chroni c findin gs in the lungs with areas of atelec tasis and scarri ng especi ally in the lower lung parenc hyma with dilata tion and thicke nestor of the bronch i. No defini te eviden ce of contus ion, pneumo thorax or other infilt rates. 2. Pacema ker. Tortuo us aorta with at least modera te calcif icatio n and postop erativ e findin gs with wires along the sternu m. 3. In the medias tinum no free air or free fluid. Limite d detail to evalua te the centra l vessel s due to imagin g withou t contra st. 4. There may be mild thicke nestor of the skin in the breast s, symmet rical with hetero geneou s breast tissue with no defini te focal mass. Please correl ate clinic ally whethe r the patien t has any bruisi ng over the breast s and chest wall. 5. No acute bony abnorm alitie s in the chest. Scolio sis of mild degree with degene rative change s in the spine. 6. CT abdome n pelvis : Limite d detail due to imagin g withou t contra st and artifa cts. 7. No defini te eviden ce of acute posttr aumati c pathol ogy to the upper abdomi nal solid organs . 8. In the mesent deion there is no free air or free fluid. No mass. 9. 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 No stones . 10. Disten ded urinar y bladde r. 11. Redund ant colon with at least modera te stool retent ion. Promin ent divert iculos is as descri bed especi ally in the left lower quadra nt where mild divert iculit is cannot be exclud ed. 12. Disten ded stomac h with retain ed fluid partic les and air. ====== ====== ====== === Ordere d By: ANABELLE R GARCES Electr onical ly Signed By: Blanco Johnston MD on 6:46 PM Interp reted By: Blanco Johnston MD, 6:33 PM 1725 pt not ready [facility] [address], [place], [address], 09/21/2022 14:26:17 03/03/20 23 03/02/2023 XR, thora cic spine , 3 view No observ ation record ed. [facility]) [address], [place], [address], 03/03/2023 16:08:19 04/18/20 23 MAMMO , scree nestor, tomos ynthe sis, bilat eral [facility] [address] [facility] [place] [address] [address] This is a summar y report . The comple te report is availa ble in the patien t's medica l record . If you cannot access the medica l record , please contac t the [facility] for a detail ed fax or copy. Examin ation: Screen ing bilate ral mammog blake with 3-D tomosy nthesi s Access ion: [id number] Clinic al histor y: Benign right breast biopsy . family histor y of breast cancer . No presen t breast relate d compla ints. Compar akua: 022, 12/11/19 21, 020, 020, 020, Techni que: Digita l screen ing mammog jorge of both breast s was perfor med. 3-D tomosy nthesi s techni que was also perfor med. This study was read with the assist kimberly of [employer] er-aid ed detect ion system . Tissue densit y: There are scatte red areas of fibrog landul ar densit y. Findin gs: No suspic ious masses , malign ant appear ing calcif icatio ns, skin thicke nestor or other abnorm alitie s are presen t. No signif icant change from the prior exam. IMPRES KASIA: No suspic ious mammog raphic findin gs. Recomm endati on: 1. Routin e Screen ing, Bilate ral Assess ment: ACR BI-RAD S 2 - BENIGN FINDIN G(S) Commen ts: A negati ve or benign mammog jorge report should not delay follow -up or biopsy of a clinic ally signif icant findin g or palpab le abnorm ality. Region s of dense breast tissue may obscur e findin gs on mammog blake. Ordere d By: NIDHI Cowart onical ly Signed By: Vargas Carmichael MD on 3:32 PM Interp reted By: Vargas Carmichael MD, 023 3:24 PM [facility] [address], [place], [address], 06/06/2023 14:55:43 04/18/20 23 04/18/2023 MAMMO , scree nestor, digit al, bilat eral No observ ation record ed. [facility] [address] [facility], [place], [address], 06/06/2023 14:55:43 08/02/20 23 08/02/2023 NM, unlis ronit scan, cardi ovasc ular No observ ation record ed. [facility] [address], [place], [address], 08/02/2023 17:47:01 08/02/2008/02/2023 myoca rdial perfu kasia study w/ eject ion fract ion (PROC ) No observ ation record ed. [facility] Main Out Patient [facility] [address], [place], [address], 08/03/2023 13:35:09 08/06/2008/02/2023 trans -thor acic echoc ardio gram (TTE) (PROC ) No observ ation record ed. [facility] Main [facility] Patient [facility] [address], [place], [address], 08/06/2023 21:41:57 08/15/2008/15/2024 XR, knee No observ ation record ed. [facility] [address], [place], [address], 08/16/2024 16:21:08 Result Notes None recorded. Problems Name Problem SNOMED Code Status Onset Date Resolution Date Notes Provider Name and Address Organization Details Recorded Time [facility] 699105[facility] Active 2020 Karina Hamm [place], [place] - PENDING SALE TO [facility] 08:50:37 Coronary arterios clerosis 86658009 Active 2020 ELIER Wade Attn: Accounting ,[address], [place], [address] , [facility] - [place] 09:57:26 Primary cardiomy opathy 11237138 Active 2012 Location : None;Sev erity: Moderate ;Progres s: Stable;A dded By: Karina Hamm;Add to Current Problems : YES Not Available [facility] 7 08:44:23 End-stag e renal disease 44193679 Active 2012 Location : None;Sev erity: Moderate ;Progres s: Stable;A dded By: Karina Hamm;Add to Current Problems : NO Not Available [facility] 7 08:44:23 Gout 91931940 Active 2012 Location : None;Sev erity: Moderate ;Progres s: Stable;A dded By: Karina Hamm;Add to Current Problems : YES Not Available [facility] 7 08:44:23 History of renal transpla nt 959620153 Active 2012 Location : None;Sev erity: Moderate ;Progres s: Stable;A dded By: Karina Hamm;Add to Current Problems : YES Not Available [facility] 7 08:44:23 Cataract 260229027 Active 2012 Location : None;Sev erity: Moderate ;Progres s: Stable;A dded By: Britney Craig;Add to Current Problems : NO Not Available [facility] 7 08:44:23 Acute pharyngi tis 534488515 Completed 201211/28/2013 Location : None;Sev erity: Moderate ;Progres s: Stable;A dded By: Britney Craig;Add to Current Problems : NO Not Available [facility] 7 08:44:23 Onychomy cosis due to dermatop hyte 278668762 Completed 201403/12/2015 Location : None;Sev erity: Moderate ;Progres s: Stable;A dded By: Britney Craig;Add to Current Problems : YES Not Available [facility] 7 08:44:23 Acute sinusiti s [id number] Completed 201303/13/2014 Location : None;Sev erity: Moderate ;Progres s: Stable;A dded By: Naa Mohan;Add to Current Problems : NO Not Available [facility] 7 08:44:23 Screenin g mammogra phy Completed 201209/14/2013 Location : None;Sev erity: Moderate ;Progres s: Stable;A dded By: Karina Hamm;Add to Current Problems : NO Not Available [facility] 7 08:44:23 Candidal vulvovag initis 00281527 Completed 201209/14/2013 Location : None;Sev erity: Moderate ;Progres s: Stable;A dded By: Karina Hamm;Add to Current Problems : NO Not Available [facility] 7 08:44:23 Transien t insomnia 867203146 Completed 201211/28/2013 Location : None;Sev erity: Moderate ;Progres s: Stable;A dded By: Karina Hamm;Add to Current Problems : NO Not Available [facility] 7 08:44:23 Acute sinusiti s 28654808 Completed 201211/28/2013 Location : None;Sev erity: Moderate ;Progres s: Stable;A dded By: Karina Hamm;Add to Current Problems : NO Not Available [facility] 7 08:44:23 Acute pharyngi tis 458909387 Completed 201301/12/2014 Location : None;Sev erity: Moderate ;Progres s: Stable;A dded By: Karina Hamm;Add to Current Problems : NO Not Available [facility] 7 08:44:23 Dysuria 00672194 Completed 201301/12/2014 Location : None;Sev erity: Moderate ;Progres s: Stable;A dded By: Karina Hamm;Add to Current Problems : NO Not Available [facility] 7 08:44:23 Acute non-supp urative serous otitis media 537765745 Completed 201303/13/2014 Location : None;Sev erity: Moderate ;Progres s: Stable;A dded By: Karina Hamm;Add to Current Problems : NO Not Available [facility] 7 08:44:23 Acute maxillar y sinusiti s 01514275 Completed 201404/10/2015 Location : None;Sev erity: Moderate ;Progres s: Stable;A dded By: Karina Hamm;Add to Current Problems : YES Not Available [facility] 7 08:44:23 Transien t insomnia 972683458 Active 2013 Location : None;Sev erity: Moderate ;Progres s: Stable;A dded By: Salima Fournier i;A dd to Current Problems : YES Not Available [facility] 7 08:44:23 Idiopath ic peripher al neuropat hy 61757333 Active 2012 Location : None;Sev erity: Moderate ;Progres s: Stable;A dded By: Salima Fournier i;A dd to Current Problems : YES Not Available [facility] 7 08:44:24 Benign essentia l hyperten kasia 9104644 Active 2012 Location : None;Sev erity: Moderate ;Progres s: Stable;A dded By: Salima Fournier i;A dd to Current Problems : YES Not Available [facility] 7 08:44:24 Hyperlip idemia 05443578 Active 2012 Location : None;Sev erity: Moderate ;Progres s: Stable;A dded By: Salima Fournier i;A dd to Current Problems : YES Not Available [facility] 7 08:44:24 Tinnitus 98593846 Completed 201504/16/2016 Location : None;Sev erity: Moderate ;Progres s: Stable;A dded By: Salima Fournier i;A dd to Current Problems : NO Not Available [facility] 7 08:44:24 Generali zed abdomina l pain [id number] Completed 201503/18/2016 Location : None;Sev erity: Moderate ;Progres s: Stable;A dded By: Salima Fournier i;A dd to Current Problems : YES Not Available [facility] 7 08:44:24 Problem Notes None recorded. Procedures Surgical History Date Name Laterality Status Provider Name and Address Organization Details Recorded Time 021 repair of incisional hernia completed Karina Hamm [facility] 05/18/2021 13:33:57 021 Total hysterectomy completed Karina Hamm [facility] 2020 13:38:49 018 cardiopulmonary bypass operation completed Karina Hamm [facility] 03/20/2019 12:49:04 010 Defibrillator completed Michael Campo MA [place] - [place] 09/13/2018 11:12:52 Appendectomy completed [facility] - [place] 11/10/2016 17:15:33 Eye Surgery completed [facility] - [place] 11/10/2016 17:15:51 Hernia Repair completed [facility] 11/10/2016 17:15:55 Pacemaker completed [facility] - [place] 11/10/2016 17:16:01 Tonsillectomy completed [facility] - PENDING SALE TO [facility] 11/10/2016 17:16:07 Imaging Results Imaging Date Name Status LastModified by Organization Details LastModified Time 09/14/2022 xr elbow lt m3v completed cpa[facility]5 [address], [address], 09/21/2022 14:26:22 09/14/2022 [facility]erus lt min [facility] [address], [address], 09/21/2022 14:26:22 09/14/2022 CT, head, w/o contrast completed [address], [address], 09/21/2022 14:26:20 09/14/2022 CT cerv spine wo con completed [address], [address], 09/21/2022 14:26:18 09/14/2022 CT chest+ABD+pel wo con [facility], [address], 09/21/2022 14:26:17 03/02/2023 XR, thoracic spine, 3 view completed [facility]) [address], [place], [address], 03/03/2023 16:08:19 04/18/2023 MAMMO, screening, tomosynthesis, bilateral completed [address], [place], [address], 06/06/2023 14:55:43 04/18/2023 MAMMO, screening, digital, bilateral completed [facility], [place], [address], 06/06/2023 14:55:43 08/02/2023 NM, unlisted scan, cardiovascular completed [address], [place], [address], 08/02/2023 17:47:01 08/02/2023 myocardial perfusion study w/ ejection fraction (PROC) completed [address] Main Out Patient Lab [address] [place] [address], [place], [address], 08/03/2023 13:35:09 08/02/2023 trans-thoracic echocardiogram (TTE) (PROC) completed [address] Main Out Patient Lab [address] [place] [address], [place], [address], 08/06/2023 21:41:57 08/15/2024 XR, knee completed [facility] [address], [place], [address], 08/16/2024 16:21:08 Procedure Notes None recorded. Medical Equipment None Reported. Allergies Allergen ID Allergen Name Allergen Category Reaction Reaction Severity Criticality Documentation Date Start Date Code Code System Note Provider Name and Address Organization Details Recorded Time 212105 quinine Not available Not available Not available Not available 09/13/2018 9071 RxNorm Karina howell, [facility] 8 11:44:47 992358 atorvasta tin medicatio n rash moderate Not available 09/13/2018 15718 RxNorm Karina howell, [facility] 8 11:44:47 29241 codeine medicatio n nausea moderate Not available 11/09/20162012 2670 RxNorm React ion: nause a;Sev erity : Moder ate; Comme nt: Aller gy Type: Adver se React ion; Not Available [facility] 7 03:47:22 78482 Lipitor medicatio n rash moderate Not available 11/09/20162012 94166 5 RxNorm React ion: rash; Sever ity: Moder ate; Comme nt: Aller gy Type: Aller gy; Not Available [facility] 7 03:47:22 88037 quinapril hydrochlo ride medicatio n Not available Not available Not available 11/09/20162012 70154 9 RxNorm React ion: Shaki ng;Se verit y: Moder ate; Comme nt: StopR addie : Incor rect infor martin n;All ergy Delet ed On: 10/28;A llerg y Type: Adver se React ion; Karina howell, [facility] 8 11:44:48 07231 quinine sulfate medicatio n Not available Not available Not available 11/09/20162012 9075 RxNorm React ion: Shaki ng;Se verit y: Moder ate; Comme nt: Aller gy Type: Aller gy; Not Available [facility] 7 03:47:22 Medications Name Sig Start Date Stop Date Status Note LastModified by Organization Details LastModified Time allopurin ol 100 mg tabs Take 2 tabs po daily 03/09 completed Not Available Not Available Not Available prednison e 5 mg tabs 09/09 completed Not Available Not Available Not Available prednison e 10 mg tabs 11/10 completed Not Available Not Available Not Available levofloxa maribell 500 mg tabs 03/20 completed Not Available Not Available Not Available zolpidem tartrate 10 mg tabs Take 1 tab po q hs 03/09 completed Not Available Not Available Not Available methylpre dnisolone dose pack 4 mg tbpk 08/29 completed Not Available Not Available Not Available oxycodone hcl 5 mg tabs 03/20 completed Not Available Not Available Not Available tretinoin 0.025 % crea prn 05/18 completed Not Available Not Available Not Available carvedilo l 3.125 mg tabs one PO BID 03/09 completed Not Available Not Available Not Available ciproflox acin hcl 500 mg tabs 08/29 completed Not Available Not Available Not Available nystatin 212626 unit/gm crea prn 03/20 completed Not Available Not Available Not Available nitrofura ntoin monohydra te/macroc rystals 100 mg caps 03/09 completed Not Available Not Available Not Available metoprolo l succinate er 25 mg tb24 Take 1 tab po daily 03/20 completed Not Available Not Available Not Available pravastat in sodium 20 mg tabs 03/20 completed Not Available Not Available Not Available amoxicill in/clavul anate potassium 875-125 mg tabs 03/09 completed Not Available Not Available Not Available fluconazo le 100 mg tabs 11/10 completed Not Available Not Available Not Available rosuvasta tin calcium 10 mg tabs 03/09 completed Not Available Not Available Not Available cephalexi n 500 mg caps 03/20 completed Not Available Not Available Not Available rosuvasta tin calcium 5 mg tabs one PO abida 03/20 completed Not Available Not Available Not Available gabapenti n 100 mg caps 09/09 completed Not Available Not Available Not Available fluconazo le 150 mg tabs 03/09 completed Not Available Not Available Not Available prednison e 20 mg tabs 07/27 completed Not Available Not Available Not Available azithromy maribell 250 mg tabs 08/23 completed Not Available Not Available Not Available tramadol hcl 50 mg tabs 03/20 completed Not Available Not Available Not Available clindamyc in phosphate 1 % gel 05/18 completed Not Available Not Available Not Available nitrofura ntoin macrocrys tals 100 mg caps 11/10 completed Not Available Not Available Not Available amoxicill in 500 mg capsule TAKE 1 CAPSULE BY MOUTH TWICE DAILY FOR 10 DAYS 02/28 completed Not Available Not Available Not Available furosemid e 40 mg tablet TAKE 1 TABLET BY MOUTH ONCE DAILY active Not Available Not Available No t Available isosorbid e dinitrate 10 mg tablet TAKE 1 TABLET BY MOUTH THREE TIMES DAILY active Not Available Not Available No t Available carvedilo l 6.25 mg tablet Take 1 tablet twice a day by oral route for 90 days. active Not Available Not Available No t Available trazodone 50 mg tablet TAKE 1/2 (ONE-BRIAN F) TABLET BY MOUTH EVERY DAY AT BEDTIME NEEDED active Not Available Not Available No t Available pravastat in 40 mg tablet Take 1 tablet(s ) by mouth at bedtime 10/28 completed RxNorm: 678931;A llow Substitu tion: True Not Available Not Available Not Available fluconazo le 150 mg tablet USE DIRECTED FOR 1 DAY 10/09 completed Not Available Not Available Not Available sucralfat e 1 gram tablet TAKE ONE TABLET BY MOUTH FOUR TIMES DAILY BEFORE MEALS 09/17 completed Not Available Not Available Not Available prednison e 20 mg tablet 05/18 completed Not Available Not Available Not Available alendrona te 70 mg tablet active Not Available Not Available Not Available fluoroura cil 5 % topical cream APPLY CREAM TOPICALL Y TO AFFECTED AREA ON LEFT EAR TWICE DAILY FOR 6 WEEKS active Not Available Not Available No t Available prednison e 5 mg tablet Take 1 tablet every day by oral route. active Not Available Not Available No t Available Zithromax Z-Henry 250 mg tablet Take 2 tablet(s ) by mouth on day 1 then 1 tablet every day for the next 4 days. 08/23 completed Not Available Not Available Not Available Mango Low Dose Aspirin 81 mg tablet,de layed release Take 1 tablet every day by oral route. 06/07 completed Not Available Not Available Not Available azathiopr ine 50 mg tablet Take 1 tablet every day by oral route. 08/23 completed Not Available Not Available Not Available clopidogr el 75 mg tablet TAKE ONE TABLET BY MOUTH ONCE DAILY active Not Available Not Available No t Available ciproflox acin 250 mg tablet TAKE 1 TABLET BY MOUTH TWICE DAILY FOR 10 DAYS 11/19 completed Not Available Not Available Not Available amlodipin e 5 mg tablet TAKE 1 TABLET BY MOUTH ONCE DAILY active Not Available Not Available No t Available allopurin ol 100 mg tablet Take 1 tablet(s ) by mouth on Monday, and Monday active Not Available Not Available No t Available ciproflox acin 500 mg tablet TAKE 1 TABLET BY MOUTH TWICE DAILY FOR 3 DAYS 02/28 completed Not Available Not Available Not Available tramadol 50 mg tablet Take 1 tablet 3 times a day by oral route as needed. active Not Available Not Available No t Available carvedilo l 3.125 mg tablet 09/21 completed Not Available Not Available Not Available Tessalon Perles 100 mg capsule Take 1 capsule 3 times a day by oral route. 03/09 completed Not Available Not Available Not Available methenami ne hippurate 1 gram tablet TAKE 1/2 (ONE-BRIAN F) TABLET BY MOUTH ONCE DAILY FOR THE FIRST 5 DAYS OF THE MONTH active Not Available Not Available No t Available omeprazol e ER 20 mg capsule,e xtended release Take 1 capsule twice a day by oral route. 07/27 completed Not Available Not Available Not Available Lasix 20 mg tablet Take 1 tablet(s ) by mouth daily 08/11 completed RxNorm: 317238;A llow Substitu tion: True Not Available Not Available Not Available cephalexi n 500 mg capsule Take 1 capsule every 8 hours by oral route for 7 days. 2024 active Not Available Not Available Not Avai lable pantopraz ole 40 mg tablet,de layed release TAKE ONE TABLET BY MOUTH TWICE DAILY 05/18 completed Not Available Not Available Not Available nitrofura ntoin macrocrys susan 100 mg capsule one po daily prn 07/27 completed RxNorm: 4800052; Allow Substitu tion: True Not Available Not Available Not Available lisinopri l 10 mg tablet Take 1 po BID 08/14 completed RxNorm: 619868;A llow Substitu tion: True Not Available Not Available Not Available nitroglyc ariana 0.4 mg sublingua l tablet DISSOLVE ONE TABLET UNDER THE TONGUE EVERY 5 MINUTES NEEDED FOR CHEST PAIN. 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 03/20 completed Not Available Not Available Not Available mupirocin 2 % topical ointment 06/07 completed Not Available Not Available Not Available gabapenti n 100 mg capsule TAKE ONE CAPSULE BY MOUTH IN THE MORNING AND TWO AT BEDTIME 2024 active Not Available Not Available Not Avai lable metoprolo l succinate ER 25 mg tablet,ex tended release 24 hr Take 1 tablet every day by oral route. 07/27 completed Not Available Not Available Not Available calcitrio l 1 mcg/mL oral solution Take 1 ml by mouth daily 08/11 completed RxNorm: 811365;A llow Substitu tion: True Not Available Not Available Not Available levofloxa maribell 500 mg tablet Take 1 tablet every 24 hours by oral route for 7 days. 03/20 completed Not Available Not Available Not Available estradiol 0.01% (0.1 mg/gram) vaginal cream APPLY 1/4 OF THE APPLICAT OR TO THE VAGINA 2 TO 3 TIME PER WEEK active Not Available Not Available No t Available zolpidem 10 mg tablet Take 1 tablet every day by oral route at bedtime. 05/18 completed on gabapent in now Not Available Not Available Not Available methylpre dnisolone 4 mg tablets in a dose pack Take 1 dose pk by oral route. 08/29 completed Not Available Not Available Not Available colchicin e 0.6 mg tablet TAKE 1 TABLET BY MOUTH DAILY NEEDED 09/17 completed Not Available Not Available Not Available Imdur 30 mg tablet,ex tended release Take 1 tablet(s ) by mouth qam 08/14 completed RxNorm: 282665;A llow Substitu tion: True Not Available Not Available Not Available cefdinir 300 mg capsule TAKE 1 CAPSULE BY MOUTH EVERY 12 HOURS FOR 10 DAYS 10/09 completed Not Available Not Available Not Available Prograf 1 mg capsule take 2 tabs po q am and 1 every hs active Not Available Not Available No t Available lisinopri l 2.5 mg tablet TAKE 1 TABLET BY MOUTH TWICE DAILY 11/19 completed Not Available Not Available Not Available calcitrio l 0.25 mcg capsule TAKE 1 CAPSULE BY MOUTH ONCE DAILY active Not Available Not Available No t Available amoxicill in 875 mg-potass ium clavulana te 125 mg tablet TAKE 1 TABLET BY MOUTH TWICE DAILY FOR 10 DAYS 10/09 completed Not Available Not Available Not Available amoxicill in 500 mg-potass ium clavulana te 125 mg tablet TAKE 1 TABLET BY MOUTH TWICE DAILY FOR 10 DAYS 09/17 completed Not Available Not Available Not Available tacrolimu s 0.5 mg capsule, immediate -release active Not Available Not Available Not Available cyclobenz aprine 5 mg tablet Take 1 tablet 3 times a day by oral route as needed. 10/09 completed Not Available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 failing health, requesting ambien. Has only tried melatonin which does help a little. No snoring history reported.Also very concerned about her bone health, is seeing a bone health specialist.Had normal cologuard but transplant team wants her to have colonoscopy due to her immune suppressive drugs.Requesting mammogram order, hospital told her every 2 years, but I told her she needs mamms every year.Due for pneumovax, we are out of stock today Went over medications with pt pt states that she doesnt need any refills on todays visit. ELIER Wade Attn: Accounting,[address] [place], [address], [facility] 03/01/2023 08:08:57 3 text/html MAW 2Reported bypatient.Diet and Nutrition:healthy diet Fracture Risk:no history of fractures; no sudden unexplained fractures Concentration and Memory:no decreased concentrating ability; no memory lapses or loss; does not forget words Speech/Motor difficulties:no speech difficulties; no difficulty expressing formulated concepts; no difficulty with fine manipulative tasks; no difficulty writing/copying; no slowed reaction time; does not knock things over when trying to pick them up Hearing:wears hearing aids Vision:vision change Activities of Daily Living:able to bathe with limited or no assistance; able to contol urination and bowels; able to dress with limited or no assistance; able to feed self with limited or no assistance; able to get out of chair or bed with limited or no assistance; able to groom with limited or no assistance; able to toilet with limited or no assistance Instrumental Activities of Daily Living:able to do house work with limited or no assistance; able to grocery shop with limited or no assistance; able to manage medications with limited or no assistance; able to manage money with limited or no assistance; able to prepare meals with limited or no assistance; able to use the phone with limited or no assistance Falls Risk Assessment:no frequent falls while walking; no fall in the past year; no fall since last visit; no dizziness/vertigo Home Safety:no unsafe ariel hazzards; no unsafe stairs; working smoke/CO detectors; practicing 'safer sex'; no fire arms; has hand bars in the bathroom/shower; good lighting in the home Just lost her 5 weeks ago to CHF, liver failure and renal failure. ELIER Wade Attn: Accounting,[address] [place], [address], [facility] 10/09/2023 22:26:01 5 text/html MAW 2Reported bypatient.Diet and Nutrition:healthy diet Fracture Risk:no history of fractures; no sudden unexplained fractures Concentration and Memory:no decreased concentrating ability; no memory lapses or loss; does not forget words Speech/Motor difficulties:no speech difficulties; no difficulty expressing formulated concepts; no difficulty with fine manipulative tasks; no difficulty writing/copying; no slowed reaction time; does not knock things over when trying to pick them up Hearing:wears hearing aids Vision:blurred vision Activities of Daily Living:able to bathe with limited or no assistance; able to contol urination and bowels; able to dress with limited or no assistance; able to feed self with limited or no assistance; able to get out of chair or bed with limited or no assistance; able to groom with limited or no assistance; able to toilet with limited or no assistance Instrumental Activities of Daily Living:able to do house work with limited or no assistance; able to grocery shop with limited or no assistance; able to manage medications with limited or no assistance; able to manage money with limited or no assistance; able to prepare meals with limited or no assistance; able to use the phone with limited or no assistance Falls Risk Assessment:no frequent falls while walking; no fall in the past year; no fall since last visit; no dizziness/vertigo Home Safety:no unsafe ariel hazzards; no unsafe stairs; working smoke/CO detectors; practicing 'safer sex'; no fire arms; has hand bars in the bathroom/shower; good lighting in the home Admitted to [facility] 11/10 for chest pain, had rectal bleeding and had colonoscopy and EGD 11/12. Follows closely with nephrology transplant team, labs reviewed from 11/18 per Martínez Benavides. Was transfused one unit of blood and 3 U of iron. Had had an episode of abd/flank pain and gross bloody stool the week before admission. None since. ELIER Wade Attn: Accounting,[address] [place], [address], [facility] 11/19/2024 15:54:45 OBGyn Episode No OBEpisode recorded.
--- OUTSIDE RECORDS SUMMARY | 2025-03-13 11:04 | XMS_ITS | Encounter Summary ---
Author Organization [facility] Address [address] [place] [address] Phone Care Team Providers Care Substation Operator Chief Name Role Phone Lo Arenas RN Unavailable [phone] Bunny Hoyos MD Unavailable Nidhi Nichols Primary Care Provider [phone] Chadwick Benavides MD Unavailable [phone] Bryan English MD Unavailable Encounter Details Date Type Department Care Team (Late st Contact Info) Description 09/06/2018 Telephone [facility] Cardiology [address] [facility] [address] [facility] [address] [place] [address] [place] [address] Fredy Ricks MD [address] [facility] [address] [place] [address] Social History Tobacco Use Types Packs/Day Years Used Date Smoking Tobacco: Never Smokeless Tobacco: Never Comments Unknown Sex and Gender Information Value Date Recorded Sex Assigned at Not on file Legal Sex Female 11:06 AM [employer] Gender Identity Female 05/12/2021 9:18 PM CDT Sexual Orientation Straight 02/10/2020 9: 45 AM CDT documented as of this encounter Plan of Treatment Not on file documented as of this encounter Visit Diagnoses Not on filedocumented in this encounter Additional Health Concerns Infection Onset Date Last Indicated Resolved Time COVID: Suspected 12/26/2024 12/26/2024 12/26/2024 7:03 PM INSULATION FOREM[employer] Ring Surveillance Comment:01/12/2025- [address]2585 C. Auris ring surveillance. Tamie Zee 01/12/2025 01/12/2025 01/25/2025 2:00 PM C DT documented as of this encounter Care Teams Substation Operator Chief Relationship Specialty Start Date End Date ParentNidhi PA [address] [place] [address] PCP - General Family Practice 02/17/23 Lo Arenas, ERIKA [address] [facility] [address] [place] [address] Registered Nurse 04/10/18 Bunny Hoyos MD [address] [place] [address] Referring Physician General Surgery 03/11/21 11/15/23 Chadwick Benavides MD [address] [facility] [address] [place] [address] Referring Physician Cardiovascular Disease 04/19/23 Bryan English MD [address] [place] [address] Consulting Physician Cardiology 02/03/25 documented as of this encounter
--- OUTSIDE RECORDS SUMMARY | 2025-03-13 11:04 | XMS_ITS | Referral Summary ---
Author Organization [facility] Address [address] [place] [address] Care Team Providers Care Care Program Director Name Role Phone Lo Arenas RN Unavailable [phone] Nidhi Nichols Primary Care Provider Chadwick Bneavides MD Unavailable [phone] Bryan English MD Unavailable [phone] Encounters Date Type Department Care Team Description 03/10/2025 9:48 AM CDT - 03/10/2025 11:59 PM CDT Hospital Encounter [facility] [address] [place] [address] Discharge Disposition: Discharge to home or self care 03/06/2025 Telephone [facility] Cardiology [address] [facility] 8th [place] [address] [place] [address] Jaimie Freire NP ABX 03/06/2025 10:10 AM CDT - 03/06/2025 11:59 PM CDT Hospital Encounter [facility] [address] [place] [address] Discharge Disposition: Discharge to home or self care 03/05/2025 Telephone [facility] Cardiology [facility] Office Building [address] [place] [phone] Chelsey Alejandra CMA 03/05/2025 1:00 PM CDT Office Visit [facility] Cardiology [facility] Office Building [address] [place] [address] Jaimie Freire NP S/P mitral valve clip implantation (Primary Dx); Nonrheumatic tricuspid valve regurgitation; Coronary artery disease involving [place] coronary artery of [place] heart without angina pectoris; Primary hypertension; History of kidney transplant 03/05/2025 11:30 AM CDT Ancillary Procedure [facility] [address] [facility] [address] [place] [address] S/P mitral valve clip implantation 03/03/2025 9:49 AM CDT - 03/03/2025 11:59 PM CDT Hospital Encounter [facility] [address] [place] [address] Kidney replaced by transplant; Encounter for long-term (current) use of medications Discharge Disposition: Discharge to home or self care 02/28/2025 10:30 AM CDT Office Visit [facility] Nephrology [address] [place] [address] 5th [place] [address] Encounter for aftercare following kidney transplant (Primary Dx); Encounter for long-term current use of high risk medication; Primary hypertension; Anemia in chronic kidney disease, unspecified CKD stage; NICM (nonischemic cardiomyopathy) (HCC); Mitral regurgitation, acute; Renal osteodystrophy; S/P parathyroidectomy; Osteoporosis, unspecified osteoporosis type, unspecified pathological fracture presence 02/27/2025 Telephone [facility] Transplant Kidney [address] [facility] [address] [phone] [place] [address] Lo Arenas RN 02/27/2025 10:10 AM CDT - 02/27/2025 11:59 PM CDT Hospital Encounter [facility] [address] [place] [address] Discharge Disposition: Discharge to home or self care 02/24/2025 10:00 AM CDT - 02/24/2025 11:59 PM CDT Hospital Encounter [facility] [address] [place] [address] Discharge Disposition: Discharge to home or self care 02/21/2025 Telephone [facility] Transplant Kidney [address] [facility] [address] [id number] [place] [address] Bryan Paty 02/20/2025 10:20 AM CDT - 02/20/2025 11:59 PM CDT Hospital Encounter [facility] [address] [place] [address] Kidney replaced by transplant; Encounter for long-term (current) use of medications Discharge Disposition: Discharge to home or self care 02/17/2025 10:01 AM CDT - 02/17/2025 11:59 PM CDT Hospital Encounter [facility] [address] [place] [address] Discharge Disposition: Discharge to home or self care 02/17/2025 10:45 AM CDT Office Visit [facility] Nephrology [address] [place] [address] 5th [place] [address] [place] [address] Sarahi Turner MD Encounter for aftercare following kidney transplant (Primary Dx); High risk medication use; At high risk for infection; Hypertension, unspecified type 02/14/2025 Telephone [facility] Transplant Kidney [address] [facility] [address] [phone] [place] [address] Gely Gold 02/13/2025 1:09 PM CDT - 02/13/2025 11:59 PM CDT Hospital Encounter [facility] [address] [place] [address] Discharge Disposition: Discharge to home or self care 02/13/2025 Telephone [facility] [address] [place] [address] Nidhi Stewart RPh 02/10/2025 10:24 AM CDT - 02/10/2025 11:59 PM CDT Hospital Encounter [facility] [address] [place] [address] Discharge Disposition: Discharge to home or self care 02/07/2025 Telephone [facility] Cardiology [address] [facility] 8th [place] [address] [place] [address] Bryan English MD 02/07/2025 Orders Only [facility] Transplant Kidney [address] [facility] [address] [phone] [place] [address] Heron Guajardo Kidney replaced by transplant (Primary Dx); Encounter for long-term (current) use of medications 02/07/2025 Telephone [facility] Transplant Kidney [address] [facility] [address] [phone] [place] [address] Paty Adams 02/06/2025 Telephone [facility] Transplant Kidney [address] [facility] [address] [phone] [place] [address] Heron Guajardo 01/11/2025 9:15 PM CHANGE MANAGEMENT ANALYST - 02/04/2025 1:40 PM CDT Hospital Encounter [address] [address] Bunny Islas MD PhD Manuel, MD Yohannes Maldonado, MD Roberto Rogel, MD Octavio Levy Puja, MD Mitral regurgitation, acute (Primary Dx); Urinary retention; S/P mitral valve clip implantation; History of renal transplant; MGUS (monoclonal gammopathy of unknown significance); Hyperkalemia; Hyponatremia Discharge Disposition: Discharge to home, home health skilled care 01/31/2025 Orders Only [facility] Transplant Kidney [address] [facility] [address] [phone] [place] [address] Lo Arenas, ERIKA Kidney replaced by transplant (Primary Dx) 01/28/2025 12:00 PM CDT Ancillary Procedure [facility] Vascular [facility] IP [address] [facility] [address] [place] [address] 01/28/2025 Telephone [facility] Cardiology [address] [facility] 8th [place] [address] [place] [address] Bryan English MD 01/28/2025 Telephone [facility] Cardiology [address] [facility] 8th [place] [address] [place] [phone] Renny Villanueva 01/27/2025 Telephone [facility] Surgery [address] [facility] Floor 5 [place] [address] SebastianDanna MA 01/27/2025 8:30 AM CDT - 01/27/2025 11:50 AM CDT Surgery [facility] Electrophysiology Lab 1 [place] [phone] Bryan English MD MITRAL VALVE REPAIR WITH CLIP, (1ST CLIP) [id number] 01/27/2025 8:40 AM CDT Anesthesia Event [facility] Electrophysiology Lab 1 [place] [phone] Sascha Yi MD Deibel, Lori, NP 01/23/2025 Orders Only [facility] Scanning, Provider 01/21/2025 Telephone [facility] Cardiology [address] [facility] Medical Office Building [address] [place] [address] Sloane Covarrubias RN 01/20/2025 10:55 AM CDT - 01/20/2025 12:10 PM CDT Surgery [facility] 1 [place] [address] Bunny Islas MD PhD RIGHT HEART CATHETERIZATION [id number] 01/15/2025 Documentation [facility] Cardiology [address] [facility] Medicine 8th [place] [address] [place] [address] Melody Hernández MD 01/15/2025 10:53 AM CDT Anesthesia Event [facility] 1 [place] [address] Caitlin Gastelum MD 12/26/2024 12:18 PM CHANGE MANAGEMENT ANALYST - 01/11/2025 8:25 PM CHANGE MANAGEMENT ANALYST Hospital Encounter [facility] 5 Med Surg [address] [place] [address] Robbie Shearer DO Smith, MD Marielos Hunter, MD Nile Becerra, Joseph Nicolas MD Anasarca associated with disorder of kidney (Primary Dx); BRAYDEN (acute kidney injury); Acute cystitis without hematuria; Hyponatremia; History of renal transplant; Urinary tract infection without hematuria, site unspecified; Urinary retention Discharge Disposition: Discharge to a short term hospital for IP 01/08/2025 Telephone [facility] Transplant Kidney [address] [facility] [address] [phone] [place] [address] Lo Arenas, RN 01/06/2025 TCC Initial Eligibility Review [facility] [address] [place] [address] Preeti Mon NP 01/06/2025 Orders Only [facility] Physicians [facility] [address] [facility] [address] [place] [address] Kimberly Gardner MD Urinary tract infection without hematuria, site unspecified (Primary Dx) 01/02/2025 Telephone [facility] Transplant Kidney [address] [facility] [address] [id number] [place] [address] Darleen Coughlin 12/26/2024 Telephone [facility] Transplant Kidney [address] [facility] [address] [id number] [place] [address] oL Arenas, ERIKA 12/26/2024 Telephone [facility] Transplant Kidney [address] [facility] [address] [id number] [place] [address] Gely Gold 12/25/2024 Orders Only [facility] Nephrology [address] [facility] 5th [place] [address] [place] [address] Sarahi Turner MD 12/23/2024 Telephone [facility] Transplant Kidney [address] [facility] [address] [phone] [place] [address] Lo Arenas RN from Last 3 Months Allergies Active Allergy Reactions Criticality Noted Date Comments Adhesive Rash,Other (See comments) Medium 01/15/2021 Raw skin Atorvastatin Rash Medium Sulfamethoxazole-Trime thoprim Itching Low 09/03/2018 Codeine Nausea only Medium 08/07/2013 Quinine Chills,Fatigue Low Received during hemodialysis Medications ALPRAZolam (XANAX) 0.25 mg tabletIndication s:anxiety Take 1 tablet (0.25 mg total) by mouth 3 (three) times a day as needed Active calcium carbonate (TUMS) 500 mg (200 mg elemental) chewable tablet Take 2 tablet/chew tab (1,000 mg total) by mouth every morning Active cholecalciferol (VITAMIN D-3) 2,000 unit tablet Take 1 tablet (2,000 Units total) by mouth every morning 012 Active rosuvastatin (CRESTOR) 10 mg tablet Take 1 tablet (10 mg total) by mouth nightly Active clopidogreL (Plavix) 75 mg tablet Take 1 tablet (75 mg total) by mouth daily 30 tablet 11 021 Active gabapentin (NEURONTIN) 100 mg capsule Take 2 capsules (200 mg total) by mouth as directed Take 100 mg in AM, 200 mg in PM 90 capsule 021 2029 Active senna-docusate (PERICOLACE) 8.6-50 mg Take 1 tablet by mouth 2 (two) times a day as needed for constipation for up to 10 doses 10 tablet 021 Active traMADoL (ULTRAM) 50 mg tablet Take 1 tablet (50 mg total) by mouth every 6 (six) hours as needed for pain for up to 20 doses 20 tablet 021 Active acetaminophen ER (TYLENOL) 650 mg 8 hr tablet Take 1 tablet (650 mg total) by mouth daily as needed for pain Active traZODone (DESYREL) 50 mg tablet TAKE 1/2 (ONE-HALF) TABLET BY MOUTH EVERY DAY AT BEDTIME NEEDED 023 Active carvediloL (COREG) 6.25 mg tablet 1 tablet (6.25 mg total) 2 (two) times a day with meals 023 Active alendronate (FOSAMAX) 70 mg tabletIndication s:Age-related osteoporosis without current pathological fracture 1 tablet every 2 weeks. Take in the morning with a full glass of water, on an empty stomach, and do not take anything else by mouth or lie down for the next 30 min. 2 tablet 11 Active methenamine (HIPREX) 1 gram tablet Take 1/2(one half) tablet by mouth once daily on the first 5 days of the month. 5 tablet 11 Active amLODIPine (NORVASC) 5 mg tablet Take 1 tablet (5 mg total) by mouth daily Active melatonin 5 mg tablet Take 1 tablet (5 mg total) by mouth nightly as needed (sleep) Active allopurinoL (ZYLOPRIM) 100 mg tablet Take 0.5 tablets (50 mg total) by mouth every other day 025 2025 Active nitroglycerin (NITROSTAT) 0.[address] 1 tablet (0.4 mg total) under the tongue every 5 (five) minutes as needed for chest pain 90 tablet 1 025 2024 Active furosemide (LASIX) 40 mg tablet Take 1 tablet (40 mg total) by mouth daily 30 tablet 2 025 2025 Active sodium chloride (OCEAN) 0.65 % nasal spray Administer 1 spray into each nostril every 2 (two) hours as needed for rhinitis [address] (MYFORTIC) 180 mg EC tabletIndication s:Kidney replaced by transplant TAKE ONE TABLET BY MOUTH EVERY DAY 90 tablet 3 Active tacrolimus 0.5 mg immediate-releas e capsule Take 4 capsules (2 mg total) by mouth daily before breakfast AND 3 capsules (1.5 mg total) nightly. 630 capsule 3 025 2025 Active predniSONE (DELTASONE) 5 mg tabletIndication s:Kidney replaced by transplant Take 1 tablet (5 mg) by mouth daily 30 tablet 11 025 2025 Active amoxicillin (AMOXIL) 500 mg tablet/capsule Take 4 caps (2000 mg) 1 hour prior to procedure. 8 tablet/caps ule 1 025 Active vitamin B complex-vitamin C-folic acid (NEPHRO-CHRIS) 0.8 mg tabletIndication s:Vitamin Deficiency Prevention Take 0.8 mg by mouth daily 90 tablet 3 022 2024 Discontinued(T herapy completed) predniSONE (DELTASONE) 5 mg tabletIndication s:Kidney replaced by transplant Take 1 tablet (5 mg) by mouth daily 30 tablet 11 024 [address] (MYFORTIC) 180 mg EC tabletIndication s:Kidney replaced by transplant TAKE ONE TABLET BY MOUTH EVERY DAY 90 tablet 3 024 2024 Discontinued calcitRIOL (ROCALTROL) 0.25 mcg capsule Take 1 capsule (0.25 mcg total) by mouth daily 30 capsule 11 025 2024 Discontinued tacrolimus 0.5 mg immediate-releas e capsule Take 4 capsules (2 mg total) by mouth every morning AND 3 capsules (1.5 mg total) nightly. 210 capsule 1 2024 Discontinued(R eorder) isosorbide dinitrate (ISORDIL) 10 mg tabletIndication s:chronic heart failure Take 1 tablet (10 mg total) by mouth 3 (three) times a day 90 tablet 11 025 2024 Discontinued sodium zirconium cyclosilicate (LOKELMA) 10 gram packetIndication s:hyperkalemia Take 1 packet (10 g total) by mouth daily 30 packet 025 2024 Discontinued(T herapy completed) tacrolimus 0.5 mg immediate-releas e capsule Take 4 capsules (2 mg total) by mouth every morning AND 3 capsules (1.5 mg total) nightly. 210 capsule 1 025 2024 Discontinued amoxicillin (AMOXIL) 500 mg tablet/capsule Take 4 caps (2000 mg) 1 hour prior to procedure. 8 tablet/caps ule 1 025 2024 Discontinued amoxicillin (AMOXIL) 500 mg tablet/capsule Take 4 caps (2000 mg) 1 hour prior to procedure. 8 tablet/caps ule 1 025 2024 Discontinued(R eorder) tacrolimus 0.5 mg immediate-releas e capsule TAKE FOUR CAPSULES BY MOUTH EVERY MORNING AND TAKE THREE CAPSULES BY MOUTH EVERY EVENING 210 capsule 1 025 2024 Discontinued(R eorder) amoxicillin (AMOXIL) 500 mg tablet/capsule Take 4 caps (2000 mg) 1 hour prior to procedure. 8 tablet/caps ule 1 025 2024 Discontinued(R eorder) Hospital, Clinic, or Other Facility Administered Medication Ordered Dose Route Frequency Start Date End Date Status perflutren protein-a (OPTISON) 3 mL in sodium chloride 0.9% 8 mL syringe 1 - 8 mL IV Once in imaging 03/05/2025 03/05/2025 Ended Active Problems Patient Care Coordination No te Formatting of this note migh t be different from the original. ARIEL MORSE: P: [phone] Q-MONTHLY FK; Q3-ROUTINE (Exp 05/21/25) Problem Noted Date Diagnosed Date Nonrheumatic tricuspid valve regurgitation 03/05 Assessment & Plan (03/05/2025 3:01 PM CDT): Severe TR per echo on 01/28/2025. Euvolemic on exam today, repeat echo ordered results pending S/P parathyroidectomy 03/01/2025 Osteoporosis 03/01/2025 S/P mitral valve clip implantation 01/27/2025 Assessment & Plan (03/05/2025 3:01 PM CDT): Severe MR status post mitral clip ISSA on 01/27/2025. Postop echo: Moderate MR, mean gradient 5 mm Hg Echo repeated today, results. Continue clopidogrel NYHA class 1-2 symptoms Reviewed SBE prophylaxis, Rx sent to local pharmacy She will complete physical therapy, then we will transition to cardiac rehab locally Assessment & Plan (02/04/2025 9:19 AM CDT): S/p mitral ISSA with mitraclip 01/27 CXR: 01/27/25: mproved aeration. On today's study, no pulmonary edema. Minimal atelectasis seen with tiny pleural effusions. No pneumothorax or consolidation. Pacemaker defibrillator is seen with the leads overlying the right ventricle. Note is made of mitral clips. Calcifications are seen within the coronary arteries with stents. PT/OT following Plavix 75 mg daily Removed figure of eight suture from groin, look good bilaterally, no hematoma or drainage TTE 01/28: EF 53%, mod MR, Severe TR 02/01 Started isordil TID for intermittent chest pain Possible discharge if able to wean off O2 Acute HFrEF (heart failure with reduced ejection fraction) 01/25/2025 Assessment & Plan (02/04/2025 9:19 AM CDT): Continue furosemide, carvedilol, and isordil Most recent ECHO 01/28: Moderately dilated LV. Eccentric LV hypertrophy. LVEF 53%. Indeterminate diastolic function. Right ventricular dilatation. Moderate MR. Mildly thickened aortic valve leaflets. Severe TR. CXR with small effusions Assessment & Plan (01/25/2025 5:42 AM CDT): - Patient with prior EF 32% with most recent 55%, likely falsely elevated in setting of MR with prior dry weight of 140lb - despite weight being considerably up she appears euvolemic and is able to lie supine without issues - Cont carvedilol 6.25mg BID - holding lisinopril in setting of BRAYDEN - Diuretics on hold in setting of ongoing hyponatremia - Telemetry, low-sodium diet, daily wts, strict I/Os Hyperkalemia 01/25/2025 Assessment & Plan (02/02/2025 1:43 PM CDT): Francisco added daily BMP daily Renal Txp following Assessment & Plan (01/25/2025 5:07 AM CDT): - Stable ~5.0 in setting of BRAYDEN - CTM Mitral regurgitation, acute 01/11/2025 Assessment & Plan (02/02/2025 1:44 PM CDT): S/p Mitral ISSA 01/27 Assessment & Plan (01/25/2025 5:02 AM CDT): - Patient transferred from OSH for finding of severe MR on TTE that was confirmed on FRANKLIN here - Interventional cardiology following with plan for mitraclip on 01/27 - Maintain SBP < 120 Httsg-xk-gdzjeia kidney injury 12/27/2024 Assessment & Plan (02/03/2025 12:30 PM CDT): Avoid nephrotoxins Renal US indicates mildly elevated RI's without evidence of TRAS, no hydro evident 01/12/25 BK and CMV were negative 01/12/25 Repeat renal US obtained 01/22/25: upper normal RI's without evidence of TRAS, no hydro Monitor daily BMP Assessment & Plan (01/26/2025 9:47 AM CDT): - Prior baseline Cr 1.7 in 08/2024 with elevated Cr at OSH with peak at 3.10 in setting of urinary retention requiring kwan catheter - Here with Cr stable ~2.70 since admissions with markedly elevated BUN and intermittent hyperkalemia. Renal Transplant US unremarkable for acute etiology - Likely cardiorenal, though holding diuretics per hyponatremia - Renal Transplant team following Urinary retention 12/27/2024 History of renal transplant 12/27/2024 Assessment & Plan (02/02/2025 1:54 PM CDT): Renal transplant 2011 On prednisone, cellcept and tacrolimus Continue Lasix 40 po BID today (per TAVR team and ok with the renal Txp team) Added Fluid restriction 2000 per day Also ordered US liver to see if congestion is contributing to the renal issues - to be done today Monitor creatinine closely - at least daily Avoid nephrotoxins Renal US indicates mildly elevated RI's without evidence of TRAS, no hydro evident 01/12/25 BK and CMV were negative 01/12/25 Repeat renal US obtained 01/22/25: upper normal RI's without evidence of TRAS, no hydro Renal tx team following, appreciate discharge recs: Tacrolimus dose 2mg qAM/1.5 mg qPM Tac trough today level 4.4, target trough is 4 to 7 Myfortic 180 mg home dose Cefpodoxime 200 mg daily x5 days due to high immunosuppression risk TUMS (2 tablets BID) and calcitriol 0.25 mcg daily Continue prednisone 5 mg Request home health coordinator to set up twice weekly labs with home health (CBC, BMP, tacro level) Assessment & Plan (01/25/2025 5:11 AM CDT): - s/p kidney transplant 2011 - Cont tacro 1.5mg BID, mycophenylate mofetil 180mg daily, prednisone 5mg daily - Renal Transplant US unremarkable, BK virus and CMV/EBV studies nonacute - Renal Tx following Anasarca associated with disorder of kidney 12/08 MGUS (monoclonal gammopathy of unknown significa nce) 08/10/2023 Encounter for aftercare following kidney transpl ant 06/21/2023 Encounter for long-term current use of high risk medication 06/21/2023 HTN (hypertension) 06/21/2023 Assessment & Plan (03/05/2025 3:01 PM CDT): Reports low blood pressure readings at home after her morning medications. We will stop Isordil 10 mg t.i.d.. Continue to follow blood pressure readings, if remains low can consider reducing amlodipine dose Assessment & Plan (02/03/2025 12:30 PM CDT): Goal SBP <160 and MAP >65 Hydralazine PRN for SBP >160 Continue amlodipine and carvedilol with hold parameters Continue 40 mg lasix daily Assessment & Plan (01/25/2025 5:16 AM CDT): - Cont carvedilol and amlodipine, holding ACEi Anemia in chronic kidney disease 06/21/2023 Assessment & Plan (02/03/2025 12:30 PM CDT): H/H stable Assessment & Plan (01/25/2025 5:12 AM CDT): - Check ferritin/iron profile given history of SACHIN s/p iron infusion - Hgb baseline ~8 - stable around 7 recently - Check hapto/LDH in setting of potential valvular hemolysis - Hgb> 7 PVC (premature ventricular contraction) 06/18/20 23 COVID-19 08/23/2022 Prolapse of vaginal vault after hysterectomy Assessment & Plan (09/16/2021 9:17 AM CHANGE MANAGEMENT ANALYST): - currently managed with #4 Ring pessary while patient awaits surgical correction - we reviewed how to remove/insert pessary and patient was able to perform in office - she will plan to take pessary out a minimum of 2-3 times per week - return in 3 months for pessary check if surgery not already performed Urinary retention with incomplete bladder emptyi ng 08/27/2021 Assessment & Plan (09/16/2021 9:18 AM CHANGE MANAGEMENT ANALYST): - normal PVR today with double void Vaginal atrophy 08/27/2021 Assessment & Plan (09/16/2021 9:17 AM CHANGE MANAGEMENT ANALYST): - reviewed how to measure and administer vaginal estrogen - she will start using vaginal estrogen twice per week 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) use of antithrombotics/antip latelets 03/10/2021 Incisional hernia, without obstruction or gangre ne 07/30/2020 Overview (07/30/2020): Added automatically from request for surgery [id number] Sensorineural hearing loss, asymmetrical 019 Essential hypertension 02/05/2019 NICM (nonischemic cardiomyopathy) 09/03/2018 Assessment & Plan (09/04/2018 12:26 AM CDT): Unclear etiology, recovered EF, s/p ICD for primary prevention ICD (implantable cardioverter-defibrillator) in place 09/03/2018 Actinic keratosis 05/29/2016 Ventricular premature beats 02/20/2016 Assessment & Plan (09/04/2018 12:28 AM CDT): -continue home metoprolol ER 25 Renal osteodystrophy 02/02/2015 Edema of lower extremity 06/06/2014 Injury to lumbar nerve root 06/06/2014 Cervicalgia 06/04/2014 History of immunosuppressive therapy 03/07/2014 Insomnia 08/26/2013 Cytomegalovirus infection 02/07/2013 Hyperparathyroidism due to renal insufficiency 0 01/16/2013 Hypermagnesemia 11/12/2012 Urinary tract infection 10/24/2012 Overview (09/16/2021): 06/28/21 - E coli (valladares-sensitive) 05/27/20 - E coli (ESBL resistant to cipro, macrobid, bactrim) History of kidney transplant 10/22/2012 Assessment & Plan (03/05/2025 3:01 PM CDT): Follows closely with her front office manager/transplant team. Labs last week showed improvement in creatinine down to 2.3. 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 currently on tacro, pred, mycopehnolate. Recent tacro level wnl Plan - c/w tacrolimus 2mg qd, 1mg qhs, mycophenolate 360 qhs, prednisone 5mg qd - daily BMP Hyperlipidemia 06/13/2011 Mitral valve disease 06/09/2009 CAD (coronary artery disease) 06/09/2009 Assessment & Plan (03/05/2025 3:01 PM CDT): Prior CABG in 2017, PCI to the RCA in 2019. Denies anginal symptoms. LVEF 53% per TTE Continue clopidogrel monotherapy Assessment & Plan (02/03/2025 12:29 PM CDT): Previous CABG Pt reported intermittent chest pain - started on isordil TID per Dr. English, which has helped [facility] last done 2022, unable to repeat due to renal issues. PCI to RCA Continue plavix and statin Continue coreg 6.25 BID Assessment & Plan (01/25/2025 5:13 AM CDT): - s/p CABG - Cont statin - hold clopidogrel in setting of upcoming procedure Resolved Problems Problem Noted Date Diagnosed Date Resolved Date Hyponatremia 01/25/2025 02/02/2025 Assessment & Plan (01/29/2025 12:44 PM CDT): Continues to run low, will check with the Renal txp team about using Tolvaptan BMP daily Assessment & Plan (01/26/2025 9:49 AM CDT): - Normal on transfer from OSH - though has declined to freddy 124 in setting of diuresis - Labs most consistent with SIADH vs overdiuresis vs HFrEF - noted that I/O has patient at net negative 14L this admission, ?though weight is stable to increased from presentation on 01/11 - CTM, has remained stable last 24 hours - notified renal tx and cardiology of hypoNa and elevated Cr, they are ok continue to monitor and still planning on procedure tomorrow - appreciate renal recs COVID-19 09/20/2020 03/10/2021 Encounter for aftercare foll owing kidney transplant 02/05/2019 03/10/2021 Encounter for long-term (cur rent) use of high-risk medication 02/05/2019 03/10/2021 Dyslipidemia 02/05/2019 03/10/2021 URI (upper respiratory infection) 09/04/2018 03/10/2021 Assessment & Plan (09/06/2018 2:05 PM CDT): Afebrile, asymptomatic - keflex 500 BID 10 day course Implanted defibrillator elec trode lead fracture 09/04/2018 03/10/2021 Assessment & Plan (09/05/2018 1:47 PM CDT): Plan - s/p ICD revision 09/05 - will follow up post procedure 2 view CXR, then discharge 24 hours if stable - type screen, coags - staff w/ EP Surgical follow-up care 03/14/2014 0503/2021 Rash 03/07/2014 03/10/2021 Baldness 08/26/2013 03/10/2021 Notalgia 04/22/2013 03/10/2021 Obesity 01/16/2013 03/10/2021 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 Palpitations 11/05/2012 03/10/2021 Localized adiposity 04/21/2011 03/10/20 21 Immunizations Immunization Administration Dates Next Due Influenza, Quadrivalent, Split, Intramuscular Influenza, Trivalent, Adjuvanted, Intramuscular 08/08/2018 Influenza, Trivalent, High D ose, Split, Preservative Free, Intramuscular 08/11/2017,08/17/2016 Influenza, Trivalent, IM (MDV) 08/11/2014,2012 Influenza, Unspecified 08/08/2018 Pneumococcal Conjugate PCV 13 08/11/2017 Pneumococcal Polysaccharide PPV23 09/07/1998 Tdap 12/28/2007 Social History Tobacco Use Types Packs/Day Years Used Date Smoking Tobacco: Never Smokeless Tobacco: Never Tobacco Cessation:Counseling Given: Not Answered Alcohol Use Standard Drinks/Week Comments Never 0 (1 standard drink = 0.6 oz pur e alcohol) [facility] [employer] Answer Date Recorded In the past 12 months has Recordant, gas, oil, or water [employer] threatened to shut off services in your home? No 01/12/2025 Social Connection and Isolat ion Panel [NHANES] Answer Date Recorded In a typical week, how many times do you talk on the phone with family, friends, or neighbors? More than three times a week 01/12/2025 How often do you get togethe r with friends or relatives? More than three times a week 01/12/2025 How often do you attend chur or caodaism services? More than 4 times per year 01/12/2025 Do you belong to any clubs o r organizations such as sikh groups, unions, fraternal or athletic groups, or school groups? No 01/12/2025 How often do you attend meet ings of the clubs or organizations you belong to? Never 01/12/2025 Are you , , di vorced, , never , or living with a partner? 01/12/2025 AUDIT-C Answer Date Recorded Q1: How often do you have a drink containing alcohol? Never 01/20/2025 Q2: How many drinks containi ng alcohol do you have on a typical day when you are drinking? Patient does not drink Q3: How often do you have si x or more drinks on one occasion? Never 01/20/2025 Overall Financial Resource Strain (CARDIA) Answe r Date Recorded How hard is it for you to pa y for the very basics like food, housing, medical care, and heating? Not very hard 01/12/2025 Hunger Vital Sign Answer Date Recorded Within the past 12 months, y ou worried that your food would run out before you got the money to buy more. Never true 01/13/20 25 Within the past 12 months, t he food you bought just didn't last and you didn't have money to get more. Never true 01/12/2025 PRAPARE - Transportation Answer Date Re corded In the past 12 months, has l ack of transportation kept you from medical appointments or from getting medications? No 07/2025 In the past 12 months, has l ack of transportation kept you from meetings, work, or from getting things needed for daily living? No 01/12/2025 Housing Stability Vital Sign Answer Georges e Recorded In the last 12 months, was t here a time when you were not able to pay the mortgage or rent on time? No 01/12/2025 In the past 12 months, how m any times have you moved where you were living? 0 01/12/2025 At any time in the past [address] [facility], were you homeless or living in a prison (including now)? No 01/12/2025 Personal Safety Answer Date Recorded Have you ever been in or are you currently in a harmful physical or emotional relationship or is someone making you feel afraid or unsafe? 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 Not on file Not on file Not on fi le Last Filed Vital Signs Vital Sign Reading Time Taken Comments Blood Pressure 96/62 03/05/2025 12:34 PM CDT Pulse 63 03/05/2025 12:34 PM CDT Temperature 36.5 C (97.7 F) 02/28/2025 10:29 AM CDT Respiratory Rate 20 02/04/2025 12:00 PM CDT Oxygen Saturation 99% 03/05/2025 12:34 PM CDT Inhaled Oxygen Concentration - - Weight 69.9 kg (154 lb) 03/05/2025 12:34 PM CDT Height 162.6 cm (5' 4 ) 03/05/2025 12:34 PM CDT Body Mass Index 26.43 03/05/2025 12:34 PM CDT Plan of Treatment Not on file Medical Devices Implanted Type Area [place] [employer] Device Identifier Shelf Expiration Date Model / Serial / Lot Lan Vascular Mitraclip G4 Xtw Cardiac Valve Clip [id number] - [id number] - [id number] Implanted:Qty: 1 on 01/27/2025 by Bryan English MD at [facility] Clip N/A: Mitral Valve Lan Vascular 07/03/2025 [id number] / [id number] / [id number] Medtronic Cardiac Rhythm Mgmt [id number] Visia Af Mri Df-4vr Connector Defibrillator 33cc 77gm Cardiac - [id number] - [id number] Implanted:Qty: 1 on 09/05/2018 by Fredy Ricks MD at [facility] ICD Left: Chest Medtronic Cardiac Rhythm Mgmt [id number] 05/19/2019 [id number] / [id number] / Medtronic Cardiac Rhythm Mgmt [id number] Sprint Quattro Secure S 55cm Df-4 Tripolar Screw Defibrillator - [id number] - [id number] Implanted:Qty: 1 on 09/05/2018 by Fredy Rikcs MD at [facility] Lead Left: Vein Medtronic Cardiac Rhythm Mgmt 05/15/2020 [id number] / [id number] / [employer]ol Inc/C R Bard [id number] Bard [id number] Monofilament Soft Lightweight Low Profile Square - [id number] Implanted:Qty: 1 on 03/15/2021 by Bunny Hoyos MD at [facility] Mesh Abdomen Dav[employer] Inc/C R Bard [id number] 11/02/2025 [id number] / / Lan Vascular System Closure Repair Femoral Artery Suture Mediated Perclose Prostyle 13918-19 - [id number] - [id number] Implanted:Qty: 1 on 01/27/2025 by Adam Tong MD at [facility] Vascular Closure Device Right: Common Femoral Artery Lan Vascular 09/05/2026 42891-34 / [id number] / [id number] Ter[employer] Gladis Angio-Seal Vip 6fr Closere Device [id number] - [id number] - [id number] Implanted:Qty: 1 on 01/27/2025 by Adam Tong MD at [facility] Vascular Closure Device Left: Common Femoral Artery [employer] Gladis 08/30/2025 [id number] / [id number] / [id number] Medtronic Cardiac Rhythm Mgmt 5867-3m Capsure 4.6-8.4fr Bipolar Is-1 Connector Low Profile 3 Style - [id number] Implanted:Qty: 2 on 09/05/2018 by Fredy Ricks MD at [facility] Left: Chest Medtronic Cardiac Rhythm Mgmt [id number] 05/29/2022 5867-3M / / [id number] Medtronic Inc [id number] 3.3x2.9in Large Envelope Absorbable Polyarylate Minocycline - [id number] Implanted:Qty: 1 on 09/05/2018 by Fredy Ricks MD at [facility] Left: Chest Medtronic Inc 09/05/2018 [id number] / / [id number] Description:Expiration date 09/05/2018 at midnight Medtronic Cardiac Rhythm Mgmt 5867-3m Capsure 4.6-8.4fr Bipolar Is-1 Connector Low Profile 3 Style - [id number] Implanted:Qty: 1 on 09/05/2018 by Fredy Ricks MD at [facility] Left: Chest Medtronic Cardiac Rhythm Mgmt [id number] 03/15/2022 5867-3M / / [id number] Lan Vascular Mitraclip Implant G4 System [id number] - [id number] Implanted:Qty: 1 on 01/27/2025 by Bryan English MD at [facility] N/A: Mitral Valve Lan Vascular [id number] / / Procedures Procedure Name Priority Date/Time Associated Diagnosis Comments EGFR Routine 03/10/2025 9:00 AM CDT DIFFERENTIAL AUTO Routine 03/10/2025 9:0 0 AM CDT TACROLIMUS LEVEL, RANDOM Routine 03/10/2025 9:00 AM CDT RENAL FUNCTION PANEL Routine 03/10/2025 9:00 AM CDT CBC WITH AUTO DIFFERENTIAL Routine 03/10/2025 9:00 AM CDT EGFR Routine 03/06/2025 10:00 AM CDT DIFFERENTIAL AUTO Routine 03/06/2025 10:00 AM CDT RENAL FUNCTION PANEL Routine 03/06/2025 10:00 AM CDT TACROLIMUS LEVEL, TROUGH Routine 03/06/2025 10:00 AM CDT CBC WITH AUTO DIFFERENTIAL Routine 03/06/2025 10:00 AM CDT TRANSTHORACIC ECHO (TTE) COMPLETE W DOPPLER/CF W CONTRAST Routine 03/05/2025 12:12 PM CDT S/P mitral valve clip implantation EGFR Routine 03/03/2025 9:30 AM CDT Kidney replaced by transplant DIFFERENTIAL AUTO Routine 03/03/2025 9:3 0 AM CDT Kidney replaced by transplant CBC WITH AUTO DIFFERENTIAL Routine 03/03/2025 9:30 AM CDT Kidney replaced by transplant RENAL FUNCTION PANEL Routine 03/03/2025 9:30 AM CDT Kidney replaced by transplant TACROLIMUS LEVEL, TROUGH Routine 03/03/2025 9:30 AM CDT Kidney replaced by transplant Encounter for long-term (current) use of medications POCT URINALYSIS DIPSTICK Routine 02/28/2025 11:35 AM CDT Encounter for aftercare following kidney transplant EGFR Routine 02/27/2025 9:15 AM CDT DIFFERENTIAL AUTO Routine 02/27/2025 9:1 5 AM CDT RENAL FUNCTION PANEL Routine 02/27/2025 9:15 AM CDT TACROLIMUS LEVEL, TROUGH Routine 02/27/2025 9:15 AM CDT CBC WITH AUTO DIFFERENTIAL Routine 02/27/2025 9:15 AM CDT EGFR Routine 02/24/2025 9:45 AM CDT DIFFERENTIAL AUTO Routine 02/24/2025 9:4 5 AM CDT TACROLIMUS LEVEL, TROUGH Routine 02/24/2025 9:45 AM CDT RENAL FUNCTION PANEL Routine 02/24/2025 9:45 AM CDT CBC WITH AUTO DIFFERENTIAL Routine 02/24/2025 9:45 AM CDT EGFR Routine 02/20/2025 11:00 AM CDT Kidney replaced by transplant DIFFERENTIAL AUTO Routine 02/20/2025 11:00 AM CDT Kidney replaced by transplant CBC WITH AUTO DIFFERENTIAL Routine 02/20/2025 11:00 AM CDT Kidney replaced by transplant RENAL FUNCTION PANEL Routine 02/20/2025 11:00 AM CDT Kidney replaced by transplant TACROLIMUS LEVEL, TROUGH Routine 02/20/2025 11:00 AM CDT Kidney replaced by transplant Encounter for long-term (current) use of medications POCT URINALYSIS DIPSTICK Routine 02/17/2025 11:53 AM CDT Encounter for aftercare following kidney transplant EGFR Routine 02/17/2025 9:45 AM CDT DIFFERENTIAL AUTO Routine 02/17/2025 9:4 5 AM CDT RENAL FUNCTION PANEL Routine 02/17/2025 9:45 AM CDT TACROLIMUS LEVEL, TROUGH Routine 02/17/2025 9:45 AM CDT CBC WITH AUTO DIFFERENTIAL Routine 02/17/2025 9:45 AM CDT DIFFERENTIAL AUTO Routine 02/13/2025 1:3 0 PM CDT TACROLIMUS LEVEL, RANDOM Routine 02/13/2025 1:30 PM CDT CBC WITH AUTO DIFFERENTIAL Routine 02/13/2025 1:30 PM CDT EGFR Routine 02/10/2025 9:30 AM CDT DIFFERENTIAL AUTO Routine 02/10/2025 9:3 0 AM CDT TACROLIMUS LEVEL, TROUGH Routine 02/10/2025 9:30 AM CDT RENAL FUNCTION PANEL Routine 02/10/2025 9:30 AM CDT CBC WITH AUTO DIFFERENTIAL Routine 02/10/2025 9:30 AM CDT ALLOSURE KIDNEY DONOR-DERIVED CELL-FREE DNA (CFDNA) Routine 02/06/2025 3:32 PM CDT Kidney replaced by transplant BASIC METABOLIC PANEL Routine 02/06/2025 11:00 AM CDT HOME O2 EVAL (DESATURATION SCREEN) Routine 02/04/2025 10:03 AM CDT TACROLIMUS LEVEL, TROUGH Routine 02/04/2025 5:45 AM CDT POTASSIUM, WHOLE BLOOD Routine 02/04/2025 5:45 AM CDT SODIUM, WHOLE BLOOD Routine 02/04/2025 5 :45 AM CDT EGFR Routine 02/03/2025 9:28 PM CDT PHOSPHORUS Routine 02/03/2025 9:28 PM CDT MAGNESIUM Routine 02/03/2025 9:28 PM CDT CBC WITHOUT DIFFERENTIAL Routine 02/03/2025 9:28 PM CDT BASIC METABOLIC PANEL Routine 02/03/2025 9:28 PM CDT XR CHEST PA LATERAL 2 VIEWS Pending Discharge 02/03/2025 10:32 AM CDT TACROLIMUS LEVEL, TROUGH Routine 02/03/2025 4:45 AM CDT EGFR Routine 02/02/2025 9:22 PM CDT SODIUM, WHOLE BLOOD Routine 02/02/2025 9 :22 PM CDT PHOSPHORUS Routine 02/02/2025 9:22 PM CDT MAGNESIUM Routine 02/02/2025 9:22 PM CDT CBC WITHOUT DIFFERENTIAL Routine 02/02/2025 9:22 PM CDT BASIC METABOLIC PANEL Routine 02/02/2025 9:22 PM CDT POTASSIUM, WHOLE BLOOD Timed 02/02/2025 9:22 PM CDT POTASSIUM, WHOLE BLOOD Timed 02/02/2025 8:39 AM CDT TACROLIMUS LEVEL, TROUGH Routine 02/02/2025 3:11 AM CDT TYPE AND SCREEN Timed 02/02/2025 3:11 AM CDT SODIUM, WHOLE BLOOD Routine 02/02/2025 3 :11 AM CDT CBC WITHOUT DIFFERENTIAL Routine 02/02/2025 3:11 AM CDT POTASSIUM, WHOLE BLOOD Timed 02/02/2025 3:11 AM CDT EGFR Routine 02/01/2025 8:00 PM CDT PHOSPHORUS Routine 02/01/2025 8:00 PM CDT MAGNESIUM Routine 02/01/2025 8:00 PM CDT BASIC METABOLIC PANEL Routine 02/01/2025 8:00 PM CDT POTASSIUM, WHOLE BLOOD Timed 02/01/2025 10:08 AM CDT TACROLIMUS LEVEL, TROUGH Routine 02/01/2025 5:13 AM CDT EGFR Routine 01/31/2025 9:15 PM CDT SODIUM, WHOLE BLOOD Routine 01/31/2025 9 :15 PM CDT PHOSPHORUS Routine 01/31/2025 9:15 PM CDT MAGNESIUM Routine 01/31/2025 9:15 PM CDT CBC WITHOUT DIFFERENTIAL Routine 01/31/2025 9:15 PM CDT BASIC METABOLIC PANEL Routine 01/31/2025 9:15 PM CDT POTASSIUM, WHOLE BLOOD Timed 01/31/2025 9:15 PM CDT POTASSIUM, WHOLE BLOOD Timed 01/31/2025 11:15 AM CDT US RENAL TRANSPLANT W DOPPLERS IP Routine 01/31/2025 8:43 AM CDT TACROLIMUS LEVEL, TROUGH Routine 01/31/2025 4:21 AM CDT EGFR Routine 01/30/2025 8:34 PM CDT SODIUM, WHOLE BLOOD Routine 01/30/2025 8 :34 PM CDT PHOSPHORUS Routine 01/30/2025 8:34 PM CDT MAGNESIUM Routine 01/30/2025 8:34 PM CDT CBC WITHOUT DIFFERENTIAL Routine 01/30/2025 8:34 PM CDT BASIC METABOLIC PANEL Routine 01/30/2025 8:34 PM CDT POTASSIUM, WHOLE BLOOD Timed 01/30/2025 8:34 PM CDT URINALYSIS, MICROSCOPIC ONLY Routine 01/30/2025 4:24 PM CDT URINE CULTURE Routine 01/30/2025 4:24 PM CDT URINALYSIS AND REFLEX TO MICROSCOPIC AND CULTURE Routine 01/30/2025 4:24 PM CDT POTASSIUM, WHOLE BLOOD Timed 01/30/2025 11:35 AM CDT US LIVER W COMPLETE DOPPLER IP Routine 01/30/2025 10:51 AM CDT TACROLIMUS LEVEL, TROUGH Routine 01/30/2025 4:04 AM CDT POCT GLUCOSE DEVICE Routine 01/29/2025 10:13 PM CDT EGFR Routine 01/29/2025 10:07 PM CDT POTASSIUM, WHOLE BLOOD Timed 01/29/2025 10:07 PM CDT TYPE AND SCREEN Timed 01/29/2025 10:07 PM CDT SODIUM, WHOLE BLOOD Routine 01/29/2025 10:07 PM CDT PHOSPHORUS Routine 01/29/2025 10:07 PM CDT MAGNESIUM Routine 01/29/2025 10:07 PM CDT CBC WITHOUT DIFFERENTIAL Routine 01/29/2025 10:07 PM CDT BASIC METABOLIC PANEL Routine 01/29/2025 10:07 PM CDT POCT GLUCOSE DEVICE Routine 01/29/2025 5 :03 PM CDT POCT GLUCOSE DEVICE Routine 01/29/2025 11:40 AM CDT POCT GLUCOSE DEVICE Routine 01/29/2025 7 :40 AM CDT TACROLIMUS LEVEL, TROUGH Routine 01/29/2025 5:18 AM CDT SODIUM, WHOLE BLOOD Routine 01/29/2025 5:18 AM CDT EGFR Routine 01/28/2025 9:31 PM CDT PHOSPHORUS Routine 01/28/2025 9:31 PM CDT MAGNESIUM Routine 01/28/2025 9:31 PM CDT CBC WITHOUT DIFFERENTIAL Routine 01/28/2025 9:31 PM CDT BASIC METABOLIC PANEL Routine 01/28/2025 9:31 PM CDT POCT GLUCOSE DEVICE Routine 01/28/2025 8 :42 PM CDT POCT GLUCOSE DEVICE Routine 01/28/2025 5 :00 PM CDT US VEIN DUPLEX UPPER EXTREMITY LEFT LIMITED IP Routine 01/28/2025 1:07 PM CDT POCT GLUCOSE DEVICE Routine 01/28/2025 11:42 AM CDT POCT GLUCOSE DEVICE Routine 01/28/2025 9 :26 AM CDT XR CHEST PA LATERAL 2 VIEWS IP Routine 01/28/2025 9:16 AM CDT TRANSTHORACIC ECHO (TTE) COMPLETE W DOPPLER/CF W CONTRAST Pending Discharge 01/28/2025 8:50 AM CDT POTASSIUM LEVEL Timed 01/28/2025 4:24 AM CDT TACROLIMUS LEVEL, TROUGH Routine 01/28/2025 4:24 AM CDT POCT GLUCOSE DEVICE Routine 01/28/2025 3 :59 AM CDT POCT GLUCOSE DEVICE Routine 01/28/2025 12:42 AM CDT BASIC METABOLIC PANEL Routine 01/27/2025 10:43 PM CDT EGFR Routine 01/27/2025 10:43 PM CDT SODIUM, WHOLE BLOOD Routine 01/27/2025 10:43 PM CDT PHOSPHORUS Routine 01/27/2025 10:43 PM CDT MAGNESIUM Routine 01/27/2025 10:43 PM CDT CBC WITHOUT DIFFERENTIAL Routine 01/27/2025 10:43 PM CDT FRANKLIN GUIDANCE DURING CARDIAC STRUCTURAL INTVN 26241 Routine 01/27/2025 12:21 PM CDT XR CHEST 1 VIEW ED Urgent/IP Urgent 01/27/2025 11:46 AM CDT CRITICAL RESULT CALLBACK HEMATOLOGY Routine 01/27/2025 10:56 AM CDT EGFR Routine 01/27/2025 10:56 AM CDT DIFFERENTIAL AUTO Routine 01/27/2025 10:56 AM CDT APTT Routine 01/27/2025 10:56 AM CDT PROTIME-INR Routine 01/27/2025 10:56 AM CDT CBC WITH AUTO DIFFERENTIAL Routine 01/27/2025 10:56 AM CDT COMPREHENSIVE METABOLIC PANEL Routine 01/27/2025 10:56 AM CDT MAGNESIUM Routine 01/27/2025 10:56 AM CDT POCT ACTIVATED CLOTTING TIME, LOW RANGE Routine 01/27/2025 10:46 AM CDT MITRAL VALVE REPAIR WITH CLIP PROSTHESIS (1ST CLIP) Routine 01/27/2025 10:43 AM CDT Mitral regurgitation, acute POCT ACTIVATED CLOTTING TIME, LOW RANGE Routine 01/27/2025 10:23 AM CDT POCT ACTIVATED CLOTTING TIME, LOW RANGE Routine 01/27/2025 10:13 AM CDT POCT ACTIVATED CLOTTING TIME, LOW RANGE Routine 01/27/2025 9:49 AM CDT MS AN PROCEDURE PLACEHOLDER Routine 01/27/2025 9:28 AM CDT MS AN ELECTIVE ENDOTRACHEAL AIRWAY Routine 01/27/2025 9:28 AM CDT POTASSIUM, WHOLE BLOOD Routine 01/27/2025 7:50 AM CDT PREPARE RBC Timed 01/27/2025 6:42 AM CDT EGFR Routine 01/27/2025 3:33 AM CDT PHOSPHORUS Routine 01/27/2025 3:33 AM CDT MAGNESIUM Routine 01/27/2025 3:33 AM CDT CBC WITHOUT DIFFERENTIAL Routine 01/27/2025 3:33 AM CDT BASIC METABOLIC PANEL Routine 01/27/2025 3:33 AM CDT TACROLIMUS LEVEL, TROUGH Routine 01/27/2025 3:33 AM CDT SODIUM, WHOLE BLOOD Timed 01/26/2025 8 :41 PM CDT XR CHEST 1 VIEW IP Routine 01/26/2025 3:31 PM CDT POTASSIUM, WHOLE BLOOD Timed 01/26/2025 6:05 AM CDT SODIUM, WHOLE BLOOD Timed 01/26/2025 6 :05 AM CDT TYPE AND SCREEN Timed 01/26/2025 6:05 AM CDT EGFR Routine 01/26/2025 4:15 AM CDT PHOSPHORUS Routine 01/26/2025 4:15 AM CDT MAGNESIUM Routine 01/26/2025 4:15 AM CDT CBC WITHOUT DIFFERENTIAL Routine 01/26/2025 4:15 AM CDT BASIC METABOLIC PANEL Routine 01/26/2025 4:15 AM CDT TACROLIMUS LEVEL, TROUGH Routine 01/26/2025 4:15 AM CDT SODIUM, WHOLE BLOOD Timed 01/26/2025 12:05 AM CDT SODIUM, WHOLE BLOOD Timed 01/25/2025 6 :24 PM CDT OSMOLALITY, URINE Routine 01/25/2025 6:2 4 PM CDT IMMUNOGLOBULIN FREE LIGHT CHAINS Routine 01/25/2025 4:17 PM CDT PROTEIN ELECTROPHORESIS, WITH REFLEX, SERUM Routine 01/25/2025 4:17 PM CDT SODIUM, URINE, RANDOM Routine 01/25/2025 11:39 AM CDT POTASSIUM, URINE, RANDOM Routine 01/25/2025 11:39 AM CDT OSMOLALITY, URINE Routine 01/25/2025 11:39 AM CDT SODIUM, WHOLE BLOOD Timed 01/25/2025 11:06 AM CDT OSMOLALITY, BLOOD Routine 01/25/2025 11:06 AM CDT EGFR STAT 01/25/2025 10:15 AM CDT BASIC METABOLIC PANEL STAT 01/25/2025 10:15 AM CDT POTASSIUM, WHOLE BLOOD STAT 01/25/2025 10:15 AM CDT OSMOLALITY, BLOOD Routine 01/25/2025 4:3 5 AM CDT HAPTOGLOBIN Routine 01/25/2025 4:35 AM CDT IRON PROFILE W/ IBC Routine 01/25/2025 4 :35 AM CDT LACTATE DEHYDROGENASE Routine 01/25/2025 4:35 AM CDT FERRITIN Routine 01/25/2025 4:35 AM CDT HEPATIC FUNCTION PANEL Routine 01/25/2025 4:35 AM CDT EGFR Routine 01/25/2025 4:35 AM CDT PHOSPHORUS Routine 01/25/2025 4:35 AM CDT MAGNESIUM Routine 01/25/2025 4:35 AM CDT CBC WITHOUT DIFFERENTIAL Routine 01/25/2025 4:35 AM CDT BASIC METABOLIC PANEL Routine 01/25/2025 4:35 AM CDT TACROLIMUS LEVEL, TROUGH Routine 01/25/2025 4:35 AM CDT INFECTION PREVENTION PANCHO AURIS PCR, SURVEILLANCE Routine 01/24/2025 9:10 AM CDT EGFR Routine 01/24/2025 5:43 AM CDT PHOSPHORUS Routine 01/24/2025 5:43 AM CDT MAGNESIUM Routine 01/24/2025 5:43 AM CDT CBC WITHOUT DIFFERENTIAL Routine 01/24/2025 5:43 AM CDT BASIC METABOLIC PANEL Routine 01/24/2025 5:43 AM CDT TACROLIMUS LEVEL, TROUGH Routine 01/24/2025 5:43 AM CDT EGFR Routine 01/23/2025 6:05 AM CDT OSMOLALITY, BLOOD Routine 01/23/2025 6:0 5 AM CDT TYPE AND SCREEN Timed 01/23/2025 6:05 AM CDT PHOSPHORUS Routine 01/23/2025 6:05 AM CDT MAGNESIUM Routine 01/23/2025 6:05 AM CDT CBC WITHOUT DIFFERENTIAL Routine 01/23/2025 6:05 AM CDT BASIC METABOLIC PANEL Routine 01/23/2025 6:05 AM CDT TACROLIMUS LEVEL, TROUGH Routine 01/23/2025 6:05 AM CDT CARDIOLOGY DOCUMENT SCAN 01/23/2025 URINALYSIS, MICROSCOPIC ONLY Routine 01/22/2025 6:06 PM CDT URINALYSIS AND REFLEX TO MICROSCOPIC AND CULTURE Routine 01/22/2025 6:06 PM CDT POTASSIUM, URINE, RANDOM Routine 01/22/2025 5:08 PM CDT OSMOLALITY, URINE Routine 01/22/2025 5:0 8 PM CDT UREA NITROGEN, URINE, RANDOM Routine 01/22/2025 5:08 PM CDT CREATININE, URINE, RANDOM Routine 01/22/2025 5:08 PM CDT SODIUM, URINE, RANDOM Routine 01/22/2025 5:08 PM CDT US RENAL TRANSPLANT W DOPPLERS IP Routine 01/22/2025 4:16 PM CDT EGFR Timed 01/22/2025 3:12 PM CDT RENAL FUNCTION PANEL Timed 01/22/2025 3:12 PM CDT EGFR Routine 01/22/2025 5:05 AM CDT HLA ANTIBODY SCREEN BY SINGLE ANTIGEN Routine 01/22/2025 5:05 AM CDT PHOSPHORUS Routine 01/22/2025 5:05 AM CDT MAGNESIUM Routine 01/22/2025 5:05 AM CDT CBC WITHOUT DIFFERENTIAL Routine 01/22/2025 5:05 AM CDT BASIC METABOLIC PANEL Routine 01/22/2025 5:05 AM CDT TACROLIMUS LEVEL, TROUGH Routine 01/22/2025 5:05 AM CDT HLA DONOR SPECIFIC ANTIBODY REPORT 01/22/2025 5:02 AM CDT HLA ANTIBODY SCREEN - DSA (CLASS I AND CLASS II) Routine 01/22/2025 5:02 AM CDT Mitral regurgitation, acute EGFR Timed 01/21/2025 8:14 AM CDT TACROLIMUS LEVEL, TROUGH Timed 01/21/2025 8:14 AM CDT RENAL FUNCTION PANEL Timed 01/21/2025 8:14 AM CDT MAGNESIUM Timed 01/21/2025 8:14 AM CDT CBC WITHOUT DIFFERENTIAL Timed 01/21/2025 8:14 AM CDT TACROLIMUS LEVEL, TROUGH Routine 01/21/2025 6:30 AM CDT EGFR Routine 01/21/2025 6:21 AM CDT RENAL FUNCTION PANEL Routine 01/21/2025 6:21 AM CDT MAGNESIUM Routine 01/21/2025 6:21 AM CDT CBC WITHOUT DIFFERENTIAL Routine 01/21/2025 6:21 AM CDT TACROLIMUS LEVEL, TROUGH Routine 01/21/2025 6:21 AM CDT RIGHT HEART CATH Routine 01/20/2025 11:48 AM CDT Mitral regurgitation, acute POCT OXYHEMOGLOBIN - DEVICE Routine 01/20/2025 11:44 AM CDT POCT OXYHEMOGLOBIN - DEVICE Routine 01/20/2025 11:43 AM CDT POC BLOOD GAS AND CHEMISTRIES, ARTERIAL Routine 01/20/2025 10:04 AM CDT EGFR Routine 01/19/2025 8:11 PM CDT TACROLIMUS LEVEL, TROUGH Timed 01/19/2025 8:11 PM CDT MAGNESIUM Routine 01/19/2025 8:11 PM CDT RENAL FUNCTION PANEL Routine 01/19/2025 8:11 PM CDT CBC WITHOUT DIFFERENTIAL Routine 01/19/2025 8:11 PM CDT UREA NITROGEN, URINE, RANDOM Routine 01/19/2025 10:43 AM CDT SODIUM, URINE, RANDOM Routine 01/19/2025 10:43 AM CDT CREATININE, URINE, RANDOM Routine 01/19/2025 10:43 AM CDT TACROLIMUS LEVEL, TROUGH Routine 01/19/2025 8:15 AM CDT EGFR Routine 01/18/2025 8:37 PM CDT TACROLIMUS LEVEL, TROUGH Timed 01/18/2025 8:37 PM CDT MAGNESIUM Routine 01/18/2025 8:37 PM CDT RENAL FUNCTION PANEL Routine 01/18/2025 8:37 PM CDT CBC WITHOUT DIFFERENTIAL Routine 01/18/2025 8:37 PM CDT POTASSIUM LEVEL Timed 01/18/2025 1:13 PM CDT POTASSIUM LEVEL Timed 01/18/2025 8:51 AM CDT TACROLIMUS LEVEL, TROUGH Routine 01/18/2025 8:51 AM CDT POTASSIUM LEVEL Timed 01/18/2025 4:27 AM CDT TROPONIN I HIGH-SENSITIVITY Timed 01/18/2025 12:52 AM CDT POTASSIUM LEVEL Timed 01/18/2025 12:51 AM CDT ECG 12-LEAD STAT 01/18/2025 12:44 AM CDT ECG 12-LEAD STAT 01/17/2025 11:57 PM CDT EGFR Routine 01/17/2025 8:50 PM CDT TACROLIMUS LEVEL, TROUGH Timed 01/17/2025 8:50 PM CDT MAGNESIUM Routine 01/17/2025 8:50 PM CDT RENAL FUNCTION PANEL Routine 01/17/2025 8:50 PM CDT CBC WITHOUT DIFFERENTIAL Routine 01/17/2025 8:50 PM CDT OSMOLALITY, URINE Routine 01/17/2025 9:4 4 AM CDT PROTEIN / CREATININE RATIO, URINE, RANDOM Routine 01/17/2025 9:44 AM CDT POTASSIUM, URINE, RANDOM Routine 01/17/2025 9:44 AM CDT CREATININE, URINE, RANDOM Routine 01/17/2025 9:44 AM CDT SODIUM, URINE, RANDOM Routine 01/17/2025 9:44 AM CDT CHLORIDE, URINE, RANDOM Routine 01/17/2025 9:44 AM CDT TACROLIMUS LEVEL, TROUGH Routine 01/17/2025 9:39 AM CDT INFECTION PREVENTION PANCHO AURIS PCR, SURVEILLANCE Routine 01/17/2025 9:39 AM CDT EGFR Routine 01/16/2025 8:19 PM CDT TACROLIMUS LEVEL, TROUGH Timed 01/16/2025 8:19 PM CDT MAGNESIUM Routine 01/16/2025 8:19 PM CDT RENAL FUNCTION PANEL Routine 01/16/2025 8:19 PM CDT CBC WITHOUT DIFFERENTIAL Routine 01/16/2025 8:19 PM CDT LIZY-BURTON VIRUS (EBV) DNA QUANTITATIVE Routine 01/16/2025 8:19 PM CDT EGFR Timed 01/16/2025 11:25 AM CDT MAGNESIUM Timed 01/16/2025 11:25 AM CDT RENAL FUNCTION PANEL Timed 01/16/2025 11:25 AM CDT ECG 12-LEAD STAT 01/16/2025 8:56 AM CDT TACROLIMUS LEVEL, TROUGH Routine 01/16/2025 5:00 AM CDT EGFR Routine 01/15/2025 9:37 PM CDT CALCIUM, IONIZED Timed 01/15/2025 9:37 PM CDT PTH Timed 01/15/2025 9:37 PM CDT TACROLIMUS LEVEL, TROUGH Timed 01/15/2025 9:37 PM CDT MAGNESIUM Routine 01/15/2025 9:37 PM CDT RENAL FUNCTION PANEL Routine 01/15/2025 9:37 PM CDT CBC WITHOUT DIFFERENTIAL Routine 01/15/2025 9:37 PM CDT TRANSESOPHAGEAL ECHO ([place]) W DOPPLER/CF WO CONTRAST Routine 01/15/2025 11:39 AM CDT TACROLIMUS LEVEL, TROUGH Routine 01/15/2025 5:35 AM CDT EGFR Routine 01/14/2025 9:26 PM CDT TACROLIMUS LEVEL, TROUGH Timed 01/14/2025 9:26 PM CDT MAGNESIUM Routine 01/14/2025 9:26 PM CDT RENAL FUNCTION PANEL Routine 01/14/2025 9:26 PM CDT CBC WITHOUT DIFFERENTIAL Routine 01/14/2025 9:26 PM CDT TACROLIMUS LEVEL, TROUGH Routine 01/14/2025 5:03 AM CDT EGFR Routine 01/13/2025 8:26 PM CDT TACROLIMUS LEVEL, TROUGH Timed 01/13/2025 8:26 PM CDT MAGNESIUM Routine 01/13/2025 8:26 PM CDT RENAL FUNCTION PANEL Routine 01/13/2025 8:26 PM CDT CBC WITHOUT DIFFERENTIAL Routine 01/13/2025 8:26 PM CDT PROTEIN / CREATININE RATIO, URINE, RANDOM Routine 01/13/2025 5:20 PM CDT INFECTION PREVENTION PANCHO AURIS PCR, SURVEILLANCE Routine 01/13/2025 8:29 AM CDT TACROLIMUS LEVEL, TROUGH Routine 01/13/2025 5:09 AM CDT EGFR Routine 01/12/2025 9:26 PM CDT URINALYSIS, MICROSCOPIC ONLY Routine 01/12/2025 9:26 PM CDT TACROLIMUS LEVEL, TROUGH Timed 01/12/2025 9:26 PM CDT MAGNESIUM Routine 01/12/2025 9:26 PM CDT RENAL FUNCTION PANEL Routine 01/12/2025 9:26 PM CDT CBC WITHOUT DIFFERENTIAL Routine 01/12/2025 9:26 PM CDT URINE CULTURE Routine 01/12/2025 9:26 PM CDT URINALYSIS AND REFLEX TO MICROSCOPIC AND CULTURE Routine 01/12/2025 9:26 PM CDT US RENAL TRANSPLANT W DOPPLERS IP Routine 01/12/2025 8:15 PM CDT CREATININE, URINE, RANDOM Routine 01/12/2025 5:18 PM CDT UREA NITROGEN, URINE, RANDOM Routine 01/12/2025 5:18 PM CDT SODIUM, URINE, RANDOM Routine 01/12/2025 5:18 PM CDT BK VIRUS PCR QUANTITATIVE STAT 01/12/2025 5:18 PM CDT CYTOMEGALOVIRUS (CMV) DNA, QUANT GEN LAB STAT 01/12/2025 5:18 PM CDT LIZY-BURTON VIRUS (EBV) DNA QUANTITATIVE STAT 01/12/2025 5:18 PM CDT LIZY-BURTON VIRUS VCA ANTIBODY PANEL STAT 01/12/2025 5:18 PM CDT CALCIUM, IONIZED Timed 01/12/2025 6:47 AM CDT TACROLIMUS LEVEL, TROUGH Timed 01/12/2025 6:41 AM CDT VITAMIN D 25 HYDROXY Timed 01/11/2025 11:13 PM CHANGE MANAGEMENT ANALYST HEMOGLOBIN A1C Timed 01/11/2025 11:13 PM CHANGE MANAGEMENT ANALYST EGFR Timed 01/11/2025 11:13 PM CHANGE MANAGEMENT ANALYST DIFFERENTIAL AUTO Timed 01/11/2025 11:13 PM CHANGE MANAGEMENT ANALYST PRO B-TYPE NATRIURETIC PEPTIDE Timed 01/11/2025 11:13 PM CHANGE MANAGEMENT ANALYST CBC WITH AUTO DIFFERENTIAL Timed 01/11/2025 11:13 PM CHANGE MANAGEMENT ANALYST PHOSPHORUS Timed 01/11/2025 11:13 PM CHANGE MANAGEMENT ANALYST MAGNESIUM Timed 01/11/2025 11:13 PM CHANGE MANAGEMENT ANALYST COMPREHENSIVE METABOLIC PANEL Timed 01/11/2025 11:13 PM CHANGE MANAGEMENT ANALYST ECG 12-LEAD Routine 01/11/2025 10:54 PM CHANGE MANAGEMENT ANALYST EGFR Routine 01/11/2025 8:17 AM CHANGE MANAGEMENT ANALYST RETICULOCYTES Routine 01/11/2025 8:17 AM CHANGE MANAGEMENT ANALYST CBC WITHOUT DIFFERENTIAL Routine 01/11/2025 8:17 AM CHANGE MANAGEMENT ANALYST COMPREHENSIVE METABOLIC PANEL Routine 01/11/2025 8:17 AM CHANGE MANAGEMENT ANALYST EGFR Routine 01/10/2025 5:05 AM CHANGE MANAGEMENT ANALYST CBC WITHOUT DIFFERENTIAL Routine 01/10/2025 5:05 AM CHANGE MANAGEMENT ANALYST COMPREHENSIVE METABOLIC PANEL Routine 01/10/2025 5:05 AM CHANGE MANAGEMENT ANALYST EGFR Routine 01/09/2025 5:17 AM CHANGE MANAGEMENT ANALYST CBC WITHOUT DIFFERENTIAL Routine 01/09/2025 5:17 AM CHANGE MANAGEMENT ANALYST COMPREHENSIVE METABOLIC PANEL Routine 01/09/2025 5:17 AM CHANGE MANAGEMENT ANALYST EGFR Routine 01/08/2025 5:25 AM CHANGE MANAGEMENT ANALYST CBC WITHOUT DIFFERENTIAL Routine 01/08/2025 5:25 AM CHANGE MANAGEMENT ANALYST COMPREHENSIVE METABOLIC PANEL Routine 01/08/2025 5:25 AM CHANGE MANAGEMENT ANALYST EGFR Routine 01/07/2025 5:16 AM CHANGE MANAGEMENT ANALYST CBC WITHOUT DIFFERENTIAL Routine 01/07/2025 5:16 AM CHANGE MANAGEMENT ANALYST COMPREHENSIVE METABOLIC PANEL Routine 01/07/2025 5:16 AM CHANGE MANAGEMENT ANALYST APTT Routine 01/06/2025 9:07 PM CHANGE MANAGEMENT ANALYST HEMOGLOBIN AND HEMATOCRIT Routine 01/06/2025 9:07 PM CHANGE MANAGEMENT ANALYST PROTIME-INR Routine 01/06/2025 9:07 PM CHANGE MANAGEMENT ANALYST EGFR Routine 01/06/2025 8:12 AM CHANGE MANAGEMENT ANALYST CBC WITHOUT DIFFERENTIAL Routine 01/06/2025 8:12 AM CHANGE MANAGEMENT ANALYST COMPREHENSIVE METABOLIC PANEL Routine 01/06/2025 8:12 AM CHANGE MANAGEMENT ANALYST EGFR Routine 01/05/2025 7:35 AM CHANGE MANAGEMENT ANALYST COMPREHENSIVE METABOLIC PANEL Routine 01/05/2025 7:35 AM CHANGE MANAGEMENT ANALYST EGFR Routine 01/04/2025 7:31 AM CHANGE MANAGEMENT ANALYST DIFFERENTIAL AUTO Routine 01/04/2025 7:3 1 AM CHANGE MANAGEMENT ANALYST CBC WITH AUTO DIFFERENTIAL Routine 01/04/2025 7:31 AM CHANGE MANAGEMENT ANALYST COMPREHENSIVE METABOLIC PANEL Routine 01/04/2025 7:31 AM CHANGE MANAGEMENT ANALYST EGFR Routine 01/03/2025 4:59 AM CHANGE MANAGEMENT ANALYST COMPREHENSIVE METABOLIC PANEL Routine 01/03/2025 4:59 AM CHANGE MANAGEMENT ANALYST MAGNESIUM Routine 01/02/2025 5:19 AM CHANGE MANAGEMENT ANALYST PHOSPHORUS Routine 01/02/2025 5:19 AM CHANGE MANAGEMENT ANALYST PRO B-TYPE NATRIURETIC PEPTIDE Routine 01/02/2025 5:19 AM CHANGE MANAGEMENT ANALYST EGFR Routine 01/02/2025 5:19 AM CHANGE MANAGEMENT ANALYST DIFFERENTIAL AUTO Routine 01/02/2025 5:1 9 AM CHANGE MANAGEMENT ANALYST CALCIUM, IONIZED Routine 01/02/2025 5:19 AM CHANGE MANAGEMENT ANALYST PTH Routine 01/02/2025 5:19 AM CHANGE MANAGEMENT ANALYST CBC WITH AUTO DIFFERENTIAL Routine 01/02/2025 5:19 AM CHANGE MANAGEMENT ANALYST VITAMIN B12 Routine 01/02/2025 5:19 AM CHANGE MANAGEMENT ANALYST IRON PROFILE W/ IBC Routine 01/02/2025 5 :19 AM CHANGE MANAGEMENT ANALYST COMPREHENSIVE METABOLIC PANEL Routine 01/02/2025 5:19 AM CHANGE MANAGEMENT ANALYST PRO B-TYPE NATRIURETIC PEPTIDE Routine 01/01/2025 5:13 PM CHANGE MANAGEMENT ANALYST XR CHEST PA LATERAL 2 VIEWS IP Routine 01/01/2025 1:07 PM CHANGE MANAGEMENT ANALYST ALBUMIN CREATININE RATIO, URINE Routine 01/01/2025 12:33 PM CHANGE MANAGEMENT ANALYST EGFR Routine 01/01/2025 5:26 AM CHANGE MANAGEMENT ANALYST COMPREHENSIVE METABOLIC PANEL Routine 01/01/2025 5:26 AM CHANGE MANAGEMENT ANALYST EGFR Routine 12/31/2024 5:17 AM CHANGE MANAGEMENT ANALYST DIFFERENTIAL AUTO Routine 12/31/2024 5:1 7 AM CHANGE MANAGEMENT ANALYST CBC WITH AUTO DIFFERENTIAL Routine 12/31/2024 5:17 AM CHANGE MANAGEMENT ANALYST COMPREHENSIVE METABOLIC PANEL Routine 12/31/2024 5:17 AM CHANGE MANAGEMENT ANALYST TRANSTHORACIC ECHO (TTE) LIMITED/FOLLOW UP W LTD DOPPLER/CF W CONTRAST Routine 12/30/2024 3:45 PM CHANGE MANAGEMENT ANALYST EGFR Routine 12/30/2024 9:55 AM CHANGE MANAGEMENT ANALYST COMPREHENSIVE METABOLIC PANEL Routine 12/30/2024 9:55 AM CHANGE MANAGEMENT ANALYST PRO B-TYPE NATRIURETIC PEPTIDE Routine 12/30/2024 9:55 AM CHANGE MANAGEMENT ANALYST TACROLIMUS LEVEL, TROUGH Timed 12/29/2024 8:15 AM CHANGE MANAGEMENT ANALYST EGFR Routine 12/29/2024 5:57 AM CHANGE MANAGEMENT ANALYST COMPREHENSIVE METABOLIC PANEL Routine 12/29/2024 5:57 AM CHANGE MANAGEMENT ANALYST PRO B-TYPE NATRIURETIC PEPTIDE Routine 12/29/2024 5:57 AM CHANGE MANAGEMENT ANALYST XR SHOULDER LEFT 2 OR MORE VIEWS IP Routine 12/28/2024 2:16 PM CHANGE MANAGEMENT ANALYST EGFR Routine 12/28/2024 1:56 AM CHANGE MANAGEMENT ANALYST COMPREHENSIVE METABOLIC PANEL Routine 12/28/2024 1:56 AM CHANGE MANAGEMENT ANALYST PRO B-TYPE NATRIURETIC PEPTIDE Routine 12/28/2024 1:56 AM CHANGE MANAGEMENT ANALYST TRANSTHORACIC ECHO (TTE) COMPLETE W DOPPLER/CF WO CONTRAST Routine 12/27/2024 9:06 AM CHANGE MANAGEMENT ANALYST EGFR Timed 12/27/2024 6:44 AM CHANGE MANAGEMENT ANALYST BASIC METABOLIC PANEL Timed 12/27/2024 6:44 AM CHANGE MANAGEMENT ANALYST EGFR Timed 12/27/2024 6:42 AM CHANGE MANAGEMENT ANALYST BASIC METABOLIC PANEL Timed 12/27/2024 6:42 AM CHANGE MANAGEMENT ANALYST SODIUM, URINE, RANDOM Routine 12/27/2024 6:29 AM CHANGE MANAGEMENT ANALYST OSMOLALITY, URINE Routine 12/27/2024 6:2 9 AM CHANGE MANAGEMENT ANALYST EGFR Routine 12/27/2024 5:24 AM CHANGE MANAGEMENT ANALYST OSMOLALITY, BLOOD Routine 12/27/2024 5:2 4 AM CHANGE MANAGEMENT ANALYST THYROID FUNCTION CASCADE Routine 12/27/2024 5:24 AM CHANGE MANAGEMENT ANALYST LIPID PANEL Routine 12/27/2024 5:24 AM CHANGE MANAGEMENT ANALYST PHOSPHORUS Routine 12/27/2024 5:24 AM CHANGE MANAGEMENT ANALYST MAGNESIUM Routine 12/27/2024 5:24 AM CHANGE MANAGEMENT ANALYST COMPREHENSIVE METABOLIC PANEL Routine 12/27/2024 5:24 AM CHANGE MANAGEMENT ANALYST US THYROID IP Routine 12/26/2024 10:19 PM CHANGE MANAGEMENT ANALYST MAGNESIUM Timed 12/26/2024 6:16 PM CHANGE MANAGEMENT ANALYST PHOSPHORUS Timed 12/26/2024 6:16 PM CHANGE MANAGEMENT ANALYST TROPONIN T HIGH-SENSITIVITY 6-HOUR Timed 12/26/2024 6:16 PM CHANGE MANAGEMENT ANALYST INFLUENZA A/B, RSV, AND COVID-19 PCR STAT 12/26/2024 6:13 PM CHANGE MANAGEMENT ANALYST TROPONIN T HIGH-SENSITIVITY 4-HR Timed 12/26/2024 4:46 PM CHANGE MANAGEMENT ANALYST URINALYSIS, MICROSCOPIC ONLY STAT 12/26/2024 2:44 PM CHANGE MANAGEMENT ANALYST URINE CULTURE Add-On 12/26/2024 2:44 PM CHANGE MANAGEMENT ANALYST URINALYSIS AND REFLEX TO MICROSCOPIC AND CULTURE STAT 12/26/2024 2:44 PM CHANGE MANAGEMENT ANALYST SEPSIS LACTATE WITH REFLEX STAT 12/26/2024 2:19 PM CHANGE MANAGEMENT ANALYST TROPONIN T HIGH-SENSITIVITY 2-HOUR Timed 12/26/2024 2:19 PM CHANGE MANAGEMENT ANALYST BLOOD CULTURE STAT 12/26/2024 2:19 PM CHANGE MANAGEMENT ANALYST BLOOD CULTURE STAT 12/26/2024 2:19 PM CHANGE MANAGEMENT ANALYST CT CHEST ABDOMEN PELVIS WO CONTRAST ED 12/26/2024 1:58 PM CHANGE MANAGEMENT ANALYST XR CHEST 1 VIEW ED 12/26/2024 12:25 PM CHANGE MANAGEMENT ANALYST EGFR STAT 12/26/2024 12:14 PM CHANGE MANAGEMENT ANALYST DIFFERENTIAL AUTO STAT 12/26/2024 12:14 PM CHANGE MANAGEMENT ANALYST PRO B-TYPE NATRIURETIC PEPTIDE STAT 12/26/2024 12:14 PM CHANGE MANAGEMENT ANALYST TROPONIN T HIGH-SENSITIVITY SERIES (BASELINE, 2HR, 4HR, 6HR) STAT 12/26/2024 12:14 PM CHANGE MANAGEMENT ANALYST CBC WITH AUTO DIFFERENTIAL STAT 12/26/2024 12:14 PM CHANGE MANAGEMENT ANALYST COMPREHENSIVE METABOLIC PANEL STAT 12/26/2024 12:14 PM CHANGE MANAGEMENT ANALYST ECG 12-LEAD STAT 12/26/2024 12:13 PM CHANGE MANAGEMENT ANALYST TACROLIMUS, HIGHLY SENSITIVE, LC/MS/MS Routine 12/25/2024 10:27 AM CHANGE MANAGEMENT ANALYST RENAL FUNCTION PANEL Routine 12/25/2024 10:27 AM CHANGE MANAGEMENT ANALYST CBC WITH AUTO DIFFERENTIAL Routine 12/25/2024 10:27 AM CHANGE MANAGEMENT ANALYST COPY(IES) SENT TO: Routine 12/25/2024 10:27 AM CHANGE MANAGEMENT ANALYST COPY(IES) SENT TO: Routine 12/23/2024 1: 47 PM CHANGE MANAGEMENT ANALYST URINE CULTURE Routine 12/23/2024 1:47 PM CHANGE MANAGEMENT ANALYST REFLEXIVE URINE CULTURE Routine 12/23/2024 1:47 PM CHANGE MANAGEMENT ANALYST URINALYSIS AND REFLEX TO MICROSCOPIC AND CULTURE Routine 12/23/2024 1:47 PM CHANGE MANAGEMENT ANALYST Kidney replaced by transplant DEXA TBS AXIAL SKELETON BONE DENSITY 1 OR MORE SITES Schedule Routine, Read Routine (OP Routine) 09/04/2024 2:22 PM CDT Age-related osteoporosis without current pathological fracture HEPATITIS PANEL, ACUTE Routine 05/24/2022 11:43 AM CDT Arthritis from Last 3 Months or Most Recently Relevant to Health Maintenance Results * (ABNORMAL) eGFR (03/10/2025 9:00 AM CDT) eGFR 22(L) >=60 mL/min/1. 73 m2 Comment: Interpretive Data Reference Interval Normal >/= 90 mL/min/1.73m2 Mildly decreased* 60 - 89 mL/min/1.73m2 Mildly to moderately decreased 45 - 59 mL/min/1.73m2 Moderately to severely decreased 30 - 44 mL/min/1.73m2 Severely decreased 15 - 29 mL/min/1.73m2 Kidney Failure < 15 mL/min/1.73m2 *Relative to young adult level Estimated glomerular filtration rate is determined by the 2020 CKD-EPI equation recommended by the National Kid[employer] (A Unifying Approach to GFR Estimation: Recommendations of the NKF-ASK Task Force on Reassessing the Inclusion of Race in Diagnosing Kidney Disease, JASN 2020). The CKD-EPI equation should not be used for patients with unstable renal function and has not been validated in children and those over 70. Current interpretive data was last reviewed 2021. Testing performed by: [address] [address] Blood 03/10/2025 9:00 AM CDT 03/10/2025 3:13 PM CDT us Sarahi Turner MD LAB BLOOD ORDERABLES Final Resu lt [facility] [address] [facility] [place] [address] * Differential, auto (03/10/2025 9:00 AM CDT) Neutrophil abs 3.89 1.50 - 6.50 K/cumm Comment:Testing performed by : [address] [address] Imm gran abs 0.04 0.00 - 0.10 K/cumm [facility] Comment:Testing performed by : [address] [address] Lymphocyte abs 1.63 0.80 - 3.30 K/cumm [facility] Comment:Testing performed by : [address] [address] Monocyte abs 0.54 0.20 - 0.80 K/cumm [facility] Comment:Testing performed by : [address] [address] Eosinophil abs 0.35 0.00 - 0.50 K/cumm [facility] Comment:Testing performed by : [address] [address] Basophil abs 0.02 0.00 - 0.10 K/cumm [facility] Comment:Testing performed by : [address] [address] Neutrophil pct 60.2 % [facility] Comment: Interpretive Data Percent cell count reference ranges are not reported, since discordance with absolute values may lead to misinterpretation of CBC data. Current Interpretive Data was last revised on 2018. Testing performed by: [address] [address] Imm gran pct 0.6 % [facility] Comment: Interpretive Data Percent cell count reference ranges are not reported, since discordance with absolute values may lead to misinterpretation of CBC data. Current Interpretive Data was last revised on 2018. Testing performed by: [address] [address] Lymphocyte pct 25.2 % [facility] Comment: Interpretive Data Percent cell count reference ranges are not reported, since discordance with absolute values may lead to misinterpretation of CBC data. Current Interpretive Data was last revised on 2018. Testing performed by: [address] [address] Monocyte pct 8.3 % [facility] Comment: Interpretive Data Percent cell count reference ranges are not reported, since discordance with absolute values may lead to misinterpretation of CBC data. Current Interpretive Data was last revised on 2018. Testing performed by: [address] [address] Eosinophil pct 5.4 % [facility] Comment: Interpretive Data Percent cell count reference ranges are not reported, since discordance with absolute values may lead to misinterpretation of CBC data. Current Interpretive Data was last revised on 2018. Testing performed by: [address] [address] Basophil pct 0.3 % [facility] Comment: Interpretive Data Percent cell count reference ranges are not reported, since discordance with absolute values may lead to misinterpretation of CBC data. Current Interpretive Data was last revised on 2018. Testing performed by: [address] [address] Blood 03/10/2025 9:00 AM CDT 03/10/2025 3:11 PM CDT us Sarahi Turner MD LAB BLOOD ORDERABLES Final Resu lt [facility] [address] [facility] [place] [address] * (ABNORMAL) CBC with auto differential (03/10/2025 9:00 AM CDT) WBC 6.47 3.80 - 9.90 K/cumm Comment:Testing performed by : [address] [address] Hgb 8.8(L) 11.9 - 15.5 g/dL [facility] Comment:Testing performed by : [address] [address] Hct 28.1(L) 35.6 - 45.5 % [facility] Comment:Testing performed by : [address] [address] Plt 103(L) 150 - 400 K/cumm [facility] Comment:Testing performed by : [address] [address] MPV 9.5 9.1 - 12.3 fL [facility] Comment:Testing performed by : [address] [address] RBC 2.76(L) 3.90 - 5.20 M/cumm [facility] Comment:Testing performed by : [address] [address] MCV 101.8(H) 81.3 - 96.4 fL [facility] Comment:Testing performed by : [address] [address] MCH 31.9 27.1 - 33.3 pg [facility] Comment:Testing performed by : [facility], [address] [place] [address]., [address] MCHC 31.3(L) 32.3 - 35.7 g/dL [facility] Comment:Testing performed by : [facility], [address] [place] [address]., [address] RDW CV 14.7 11.1 - 14.9 % [facility] Comment:Testing performed by : [address] [address] RDW SD 54.6(H) 35.7 - 48.1 fL [facility] Comment:Testing performed by : [address] [address] NRBC abs 0.00 0.00 - 0.01 K/cumm [facility] Comment:Testing performed by : [address] [address] Blood 03/10/2025 9:00 AM CDT 03/10/2025 3:11 PM CDT us Sarahi Turner MD LAB BLOOD ORDERABLES Final Resu lt [facility] [address] [facility] [place] [address] * Tacrolimus level random (03/10/2025 9:00 AM CDT) Tacrolimus random 5.1 ng/mL Comment: Interpretive Data Testing performed by liquid chromatography-tandem mass spectrometry. Therapeutic concentrations vary depending on type of transplanted organ and time elapsed since transplant. Typical trough concentrations range from 5-15 ng/mL. This test was developed and its performance characteristics determined by the [facility] consistent with CLIA requirements. This test has not been cleared or approved by the [place] Food and Drug administration. Current interpretive data last reviewed 2020. Testing performed by: [facility], [address] [facility], [place]., [address] Blood 03/10/2025 9:00 AM CDT 03/10/2025 5:45 PM CDT us Sarahi Turner MD LAB BLOOD ORDERABLES Final Resu lt [facility] [address] [facility] [place] [address] * (ABNORMAL) Renal function panel (03/10/2025 9:00 AM CDT) Sodium 139 135 - 145 mmol/L Comment:Testing performed by : [address] [address] Potassium, pl 4.1 3.3 - 4.9 mmol/L [facility] Comment:Testing performed by : [address] [address] Chloride 100 97 - 110 mmol/L [facility] Comment:Testing performed by : [address] [address] CO2 26 22 - 32 mmol/L [facility] Comment:Testing performed by : [address] [address] Anion gap 13 2 - 15 mmol/L [facility] Comment:Testing performed by : [address] [address] BUN 83(H) 6 - 25 mg/dL [facility] Comment:Testing performed by : [address] [address] Creatinine 2.30(H) 0.60 - 1.10 mg/dL [facility] Comment:Testing performed by : [address] [address] Glucose 68(L) 70 - 199 mg/dL [facility] Comment: Interpretive Data Fasting glucose >/= 126 mg/dl is diagnostic for diabetes. Fasting is defined as no caloric intake for at least 8 hours. Fasting glucose between 100 mg/dl to 125 mg/dl is diagnostic of prediabetes. In a patient with classic symptoms of hyperglycemia or hyperglycemic crisis, a random glucose >/= 200 mg/dl is diagnostic for diabetes. In the absence of unequivocal hyperglycemia, results should be confirmed by repeat testing. The classification and Diagnosis of Diabetes Diabetes Care 202; 46: S19-S40. Current interpretive data was last revised 2022. Testing performed by: [facility], [address] [place] [address]., [address] Calcium 8.4(L) 8.5 - 10.3 mg/dL [facility] Comment:Testing performed by : [address] [address] Phosphorus, pl 4.0 2.3 - 4.5 mg/dL [facility] Comment:Testing performed by : [address] [address] Albumin 3.5 3.5 - 5.0 g/dL [facility] Comment:Testing performed by : [address] [address] Blood 03/10/2025 9:00 AM CDT 03/10/2025 3:13 PM CDT us Sarahi Turner MD LAB BLOOD ORDERABLES Final Resu lt [facility] [address] [facility] [place] [address] * (ABNORMAL) eGFR (03/06/2025 10:00 AM CDT) eGFR 22(L) >=60 mL/min/1. 73 m2 Comment: Interpretive Data Reference Interval Normal >/= 90 mL/min/1.73m2 Mildly decreased* 60 - 89 mL/min/1.73m2 Mildly to moderately decreased 45 - 59 mL/min/1.73m2 Moderately to severely decreased 30 - 44 mL/min/1.73m2 Severely decreased 15 - 29 mL/min/1.73m2 Kidney Failure < 15 mL/min/1.73m2 *Relative to young adult level Estimated glomerular filtration rate is determined by the 2020 CKD-EPI equation recommended by the National Kidney Foundation (A Unifying Approach to GFR Estimation: Recommendations of the NKF-ASK Task Force on Reassessing the Inclusion of Race in Diagnosing Kidney Disease, JASN 2020). The CKD-EPI equation should not be used for patients with unstable renal function and has not been validated in children and those over 70. Current interpretive data was last reviewed 2021. Testing performed by: [address] [address] Blood 03/06/2025 10:0 0 AM CDT 03/06/2025 11:57 AM CDT us Sarahi Turner MD LAB BLOOD ORDERABLES Final Resu lt [place] [id number] [facility] [place] [address] * Differential, auto (03/06/2025 10:00 AM CDT) Neutrophil abs 3.17 1.50 - 6.50 K/cumm Comment:Testing performed by : [address] [address] Imm gran abs 0.04 0.00 - 0.10 K/cumm [facility] Comment:Testing performed by : [address] [address] Lymphocyte abs 1.47 0.80 - 3.30 K/cumm [facility] Comment:Testing performed by : [address] [address] Monocyte abs 0.62 0.20 - 0.80 K/cumm [facility] Comment:Testing performed by : [address] [address] Eosinophil abs 0.28 0.00 - 0.50 K/cumm [facility] Comment:Testing performed by : [address] [address] Basophil abs 0.02 0.00 - 0.10 K/cumm [facility] Comment:Testing performed by : [address] [address] Neutrophil pct 56.5 % [facility] Comment: Interpretive Data Percent cell count reference ranges are not reported, since discordance with absolute values may lead to misinterpretation of CBC data. Current Interpretive Data was last revised on 2018. Testing performed by: [address] [address] Imm gran pct 0.7 % [facility] Comment: Interpretive Data Percent cell count reference ranges are not reported, since discordance with absolute values may lead to misinterpretation of CBC data. Current Interpretive Data was last revised on 2018. Testing performed by: [address] [address] Lymphocyte pct 26.3 % [facility] Comment: Interpretive Data Percent cell count reference ranges are not reported, since discordance with absolute values may lead to misinterpretation of CBC data. Current Interpretive Data was last revised on 2018. Testing performed by: [address] [address] Monocyte pct 11.1 % [facility] Comment: Interpretive Data Percent cell count reference ranges are not reported, since discordance with absolute values may lead to misinterpretation of CBC data. Current Interpretive Data was last revised on 2018. Testing performed by: [address] [address] Eosinophil pct 5.0 % [facility] [facility] Comment: Interpretive Data Percent cell count reference ranges are not reported, since discordance with absolute values may lead to misinterpretation of CBC data. Current Interpretive Data was last revised on 2018. Testing performed by: [address] [address] Basophil pct 0.4 % [facility] Comment: Interpretive Data Percent cell count reference ranges are not reported, since discordance with absolute values may lead to misinterpretation of CBC data. Current Interpretive Data was last revised on 2018. Testing performed by: [address] [address] Blood 03/06/2025 10:0 0 AM CDT 03/06/2025 11:56 AM CDT us Sarahi Turner MD LAB BLOOD ORDERABLES Final Resu lt ABEEB LOYA [address] [facility] Department of Laboratories [place], [place] [id number] * Tacrolimus level trough (03/06/2025 10:00 AM CDT) Pathologist [facility] Tacrolimus trough 5.4 ng/mL Comment: Interpretive Data Testing performed by liquid chromatography-tandem mass spectrometry. Therapeutic concentrations vary depending on type of transplanted organ and time elapsed since transplant. Typical trough concentrations range from 5-15 ng/mL. This test was developed and its performance characteristics determined by the [facility] consistent with CLIA requirements. This test has not been cleared or approved by the US Food and Drug administration. Current interpretive data last reviewed 2020. Testing performed by: [facility], [address] [place]., [address] Blood 03/06/2025 10:0 0 AM CDT 03/06/2025 3:04 PM CDT us Sarahi Turner MD LAB BLOOD ORDERABLES Final Resu lt ABEBE LOYA [address] [facility] [place] [address] * (ABNORMAL) CBC with auto differential (03/06/2025 10:00 AM CDT) [facility] WBC 5.60 3.80 - 9.90 K/cumm Comment:Testing performed by : [address] [address] Hgb 8.8(L) 11.9 - 15.5 g/dL [facility] LO[facility] Comment:Testing performed by : [address] [address] Hct 29.0(L) 35.6 - 45.5 % [facility] Comment:Testing performed by : [address] [address] Plt 108(L) 150 - 400 K/cumm [facility] Comment:Testing performed by : [address] [address] MPV 9.3 9.1 - 12.3 fL [facility] Comment:Testing performed by : [address] [address] RBC 2.85(L) 3.90 - 5.20 M/cumm [facility] Comment:Testing performed by : [address] [address] MCV 101.8(H) 81.3 - 96.4 fL [facility] Comment:Testing performed by : [address] [address] MCH 30.9 27.1 - 33.3 pg [facility] Comment:Testing performed by : [address] [address] MCHC 30.3(L) 32.3 - 35.7 g/dL [facility] Comment:Testing performed by : [address] [address] RDW CV 14.6 11.1 - 14.9 % [facility] Comment:Testing performed by : [address] [address] RDW SD 54.6(H) 35.7 - 48.1 fL [facility] Comment:Testing performed by : [address] [address] NRBC abs 0.00 0.00 - 0.01 K/cumm [facility] Comment:Testing performed by : [address] [address] Blood 03/06/2025 10:0 0 AM CDT 03/06/2025 11:56 AM CDT us Sarahi Turner MD LAB BLOOD ORDERABLES Final Resu lt ABEBE [address] [facility] Department of Laboratories [place], [place] [id number] * (ABNORMAL) Renal function panel (03/06/2025 10:00 AM CDT) Sodium 140 135 - 145 mmol/L Comment:Testing performed by : [address] [address] Potassium, pl 4.1 3.3 - 4.9 mmol/L [facility] Comment:Testing performed by : [address] [address] Chloride 102 97 - 110 mmol/L [facility] Comment:Testing performed by : [address] [address] CO2 27 22 - 32 mmol/L [facility] Comment:Testing performed by : [address], [place]., [address] Anion gap 11 2 - 15 mmol/L [facility] Comment:Testing performed by : [address], [place]., [address] BUN 87(H) 6 - 25 mg/dL [facility] Comment:Testing performed by : [address], [place]., [address] Creatinine 2.30(H) 0.60 - 1.10 mg/dL [facility] Comment:Testing performed by : [address], [place]., [address] Glucose 78 70 - 199 mg/dL [facility] Comment: Interpretive Data Fasting glucose >/= 126 mg/dl is diagnostic for diabetes. Fasting is defined as no caloric intake for at least 8 hours. Fasting glucose between 100 mg/dl to 125 mg/dl is diagnostic of prediabetes. In a patient with classic symptoms of hyperglycemia or hyperglycemic crisis, a random glucose >/= 200 mg/dl is diagnostic for diabetes. In the absence of unequivocal hyperglycemia, results should be confirmed by repeat testing. The classification and Diagnosis of Diabetes Diabetes Care 202; 46: S19-S40. Current interpretive data was last revised 2022. Testing performed by: [address] [address] Calcium 8.9 8.5 - 10.3 mg/dL [facility] Comment:Testing performed by : [address], [place]., [address] Phosphorus, pl 3.9 2.3 - 4.5 mg/dL [facility] Comment:Testing performed by : [address], [place]., [address] Albumin 3.6 3.5 - 5.0 g/dL [facility] Comment:Testing performed by : [address], [place]., [address] Blood 03/06/2025 10:0 0 AM CDT 03/06/2025 11:57 AM CDT us Sarahi Turner MD LAB BLOOD ORDERABLES Final Resu lt ABEBE MH [address] [facility] [place] [address] * TRANSTHORACIC ECHO (TTE) COMPLETE W DOPPLER/CF W CONTRAST (03/05/2025 12:12 PM CDT) EF Mod BP 53 % CONS SCIMAGE Anatomical Region Laterality Modality Ultrasound 03/05/2025 11:2 5 AM CDT Narrative 03/06/2025 7:06 AM CDT [facility] [address] , [address] [place] [address] Transthoracic Echocardiographic Report Patient Name: NEGRITA LINCOLN C : 1950 (74y 3m) Gender: F Study Date: 03/05/2025 11:25:11 AM Ht(Inch): 64 Wt(Lb): 158.95 BSA: 1.8 Senior Systems Administrator: Luna Bangura [facility] Location: [facility] Order Provider: BRYAN ENGLISH BMI: 27.28 BP: 147/80 Ref Provider: BRYAN ENGLISH - PROCEDURES: Echocardiographic Report: Transthoracic complete echo with strain imaging and contrast, 2D, spectral and tissue Doppler, color flow Doppler, M-mode. Contrast: Contrast Enhancement was Employed: After initial imaging due to sub- optimal quality related to co-morbidity defined by patient's body habitus, due to suboptimal image quality with inadequate visualization of at least 2 of 16 LV wall segments in any view after initial imaging. Perflutren contrast was administered using the volume necessary to obtain adequate images and. 0.4 ml Optison Administered, (2.6 ml wasted). INDICATIONS: Z98.890 Other specified postprocedural states and Z95.818 Presence of other cardiac implants and grafts. CONCLUSIONS: 1. Severely dilated left ventricle based on volume index. Eccentric LV hypertrophy. Mildly depressed left ventricular systolic function. The Ejection Fraction (Gonzalez's) is measured at 53 %. The average global longitudinal strain is abnormal. 2. Right ventricular dilatation. Normal right ventricular systolic function. Wire noted in the right heart. 3. One MitraClip is seen on the anterior and posterior leaflets of the mitral valve. 4. The estimated pulmonary artery systolic pressure is 35.0 mmHg. ATTESTATION: I have personally reviewed and interpreted this study without fellow or resident. - DISCLAIMER: The study images and the final report will be retained in the patient chart by the Echo Laboratory for the legally required time period. This chart constitutes the legal record of any testing performed. FINDINGS: Left Ventricle: Severely dilated left ventricle based on volume index. Eccentric LV hypertrophy. Mildly depressed left ventricular systolic function. The Ejection Fraction (Gonzalez's) is measured at 53 %. The average global longitudinal strain is abnormal. The LV global strain is: -11.6 %. Right Ventricle: Right ventricular dilatation. Normal right ventricular systolic function. Wire noted in the right heart. Left Atrium: Moderately dilated left atrium. Right Atrium: Right atrial dilatation. Mitral Valve: The mean transmitral gradient is: 3 mmHg. Specific MV Structure Abnormalities: One MitraClip is seen on the anterior and posterior leaflets of the mitral valve. Residual Mild mitral Regurgitation post clip. Aortic Valve: Normal trileaflet aortic valve. Mild aortic valve regurgitation. The mean transaortic gradient is 5 mmHg. The aortic valve area by the continuity equation (using VTI) is 1.85 cm2. Aortic valve dimensionless index is 0.61. Tricuspid Valve: Normal Tricuspid valve structure. Moderate tricuspid regurgitation. The estimated pulmonary artery systolic pressure is 35.0 mmHg. Pulmonic Valve: Normal Pulmonic Valve Structure. Moderate pulmonic regurgitation. Pericardium: Normal pericardium without pericardial effusion. Aorta: Normal aortic root size at sinuses of Valsalva. Normal aortic root size when indexed. PASP: Normal estimated pulmonary artery systolic pressure. Rhythm: Normal Sinus rhythm was seen during the study. MEASUREMENTS: 2D/MM Value Range Doppler Value Range LVIDd 2D 6.04 cm [ 3.80 - 5.20 ] AV Peak Luis 1.6 m/s [ 1.0 - 1.7 ] LVIDs 2D 5.06 cm [ 2.20 - 3.50 ] AV Peak PG 10.24 mmHg IVSd 2D 0.89 cm [ 0.60 - 0.90 ] AV Mean PG 5 mmHg LVPWd 2D 0.93 cm [ 0.60 - 0.90 ] AV VTI 38.7 cm LV Thickness Ratio 1.0 LVOT Peak Luis 1.0 m/s [ 0.7 - 1.1 ] LV FS 2D 16.30 % [ 27.00 - 45.00 ] LVOT Peak PG 4.00 mmHg LV Mass 2D 228.33 g LVOT Mean PG 2 mmHg LV Mass Index 2D 126.85 g/m2 LVOT VTI 23.7 cm RWT 0.31 LVOT Diam 1.96 cm EDV Mod BP 159.58 ml [ 46.00 - 106.00 ] ALIZA VTI 1.85 cm2 LV EDV Index 88.66 ml/m2 LVOT/AV VTI 0.61 - Dimensionless index (DVI) ESV Mod BP 75.52 ml [ 14.00 - 42.00 ] MV E Peak Luis 1.3 m/s [ 0.6 - 1.3 ] EF Mod BP 53 % [ 54 - 74 ] MV A Peak Luis 0.9 m/s [ 1.0 - 1.2 ] LV GLS -11.6 % [ -25.0 - -18.0 ] MV E/A 1.5 ratio [ 0.8 - 1.5 ] LA Length 4C 6.73 cm MV Peak Luis 1.5 m/s LA Length 2C 5.72 cm MV Peak PG 9.00 mmHg LA Volume BP 85.60 ml MV Mean PG 3 mmHg LA Volume Index 47.56 ml/m2 [ 16.00 - 34.00 ] MV VTI 49.6 cm RV Base Dimen 2D 4.5 cm [ 2.5 - 4.2 ] MV Decel Time 510.11 msec [ 104.00 - 258.00 ] TAPSE 2.77 cm [ 1.71 - 5.00 ] Med E` Luis 3.2 cm/sec [ 8.0 - 25.0 ] RA Volume 63.69 ml Lat E` Luis 5.4 cm/sec [ 10.0 - 25.0 ] RA Volume Index 35.38 ml/m2 Average E/E` 30.23 AoR Diam 2D 3.00 cm [ 2.70 - 3.70 ] RV S` 12.61 cm/sec Ao Root Index 1.67 cm/m2 [ 1.00 - 2.00 ] TR Peak Luis 2.5 m/s [ 1.0 - 2.8 ] TR Peak PG 25.0 mmHg PV Peak Luis 1.0 m/s [ 0.4 - 0.8 ] PV Peak PG 4.00 mmHg PI Peak Luis 2.3 m/s PI Peak PG 21 mmHg PI PHT 286.15 sec Electronically Signed By: Boris Corona MD 03/06/2025 7:05:40 AM CDT Procedure Note Boris Corona MD - 03/06/2025 [facility] [address] , [address] [place] [address] Transthoracic Echocardiographic Report Patient Name: NEGRITA LINCOLN C : 1950 (74y 3m) Gender: F Study Date: 03/05/2025 11:25:11 AM Ht(Inch): 64 Wt(Lb): 158.95 BSA: 1.8 Senior Systems Administrator: Lnua Bangura RDCS, RCCS Location: [facility] Order Provider:BRYAN ENGLISH BMI: 27.28 BP: 147/80 Ref Provider: BRYAN ENGLISH - PROCEDURES: Echocardiographic Report: Transthoracic complete echo with strain imagingand contrast, 2D, spectral and tissue Doppler, color flow Doppler, M-mode. Contrast: Contrast Enhancement was Employed: After initial imaging due tosub- optimal quality related to co-morbidity defined by patient's body habitus, due tosuboptimal image quality with inadequate visualization of at least 2 of 16 LV wallsegments in any view after initial imaging. Perflutren contrast was administered using thevolume necessary to obtain adequate images and. 0.4 ml Optison Administered, (2.6ml wasted). INDICATIONS: Z98.890 Other specified postprocedural states and Z95.818 Presence ofother cardiac implants and grafts. CONCLUSIONS: 1. Severely dilated left ventricle based on volume index. Eccentric LVhypertrophy. Mildly depressed left ventricular systolic function. The Ejection Fraction(Gonzalez's) is measured at 53 %. The average global longitudinal strain is abnormal. 2. Right ventricular dilatation. Normal right ventricular systolicfunction. Wire noted in the right heart. 3. One MitraClip is seen on the anterior and posterior leaflets of themitral valve. 4. The estimated pulmonary artery systolic pressure is 35.0 mmHg. ATTESTATION: I have personally reviewed and interpreted this study without fellow orresident. - DISCLAIMER: The study images and the final report will be retained in the patientchart by the Echo Laboratory for the legally required time period. This chart constitutesthe legal record of any testing performed. FINDINGS: Left Ventricle: Severely dilated left ventricle based on volume index.Eccentric LV hypertrophy. Mildly depressed left ventricular systolic function. TheEjection Fraction (Gonzalez's) is measured at 53 %. The average global longitudinal strain isabnormal. The LV global strain is: -11.6 %. Right Ventricle: Right ventricular dilatation. Normal right ventricularsystolic function. Wire noted in the right heart. Left Atrium: Moderately dilated left atrium. Right Atrium: Right atrial dilatation. Mitral Valve: The mean transmitral gradient is: 3 mmHg. Specific MVStructure Abnormalities: One MitraClip is seen on the anterior and posteriorleaflets of the mitral valve. Residual Mild mitral Regurgitation post clip. Aortic Valve: Normal trileaflet aortic valve. Mild aortic valveregurgitation. The mean transaortic gradient is 5 mmHg. The aortic valve area by the continuityequation (using VTI) is 1.85 cm2. Aortic valve dimensionless index is 0.61. Tricuspid Valve: Normal Tricuspid valve structure. Moderate tricuspidregurgitation. The estimated pulmonary artery systolic pressure is 35.0 mmHg. Pulmonic Valve: Normal Pulmonic Valve Structure. Moderate pulmonicregurgitation. Pericardium: Normal pericardium without pericardial effusion. Aorta: Normal aortic root size at sinuses of Valsalva. Normal aortic rootsize when indexed. PASP: Normal estimated pulmonary artery systolic pressure. Rhythm: Normal Sinus rhythm was seen during the study. MEASUREMENTS: 2D/MM Value Range DopplerValue Range LVIDd 2D 6.04 cm [ 3.80 - 5.20 ] AV Peak Vel1.6 m/s [ 1.0 - 1.7 ] LVIDs 2D 5.06 cm [ 2.20 - 3.50 ] AV Peak PG10.24 mmHg IVSd 2D 0.89 cm [ 0.60 - 0.90 ] AV Mean PG5 mmHg LVPWd 2D 0.93 cm [ 0.60 - 0.90 ] AV VTI38.7 cm LV Thickness Ratio 1.0 LVOT Peak Vel1.0 m/s [ 0.7 - 1.1 ] LV FS 2D 16.30 % [ 27.00 - 45.00 ] LVOT Peak PG4.00 mmHg LV Mass 2D 228.33 g LVOT Mean PG2 mmHg LV Mass Index 2D 126.85 g/m2 LVOT VTI23.7 cm RWT 0.31 LVOT Diam1.96 cm EDV Mod BP 159.58 ml [ 46.00 - 106.00 ] ALIZA VTI1.85 cm2 LV EDV Index 88.66 ml/m2 LVOT/AV VTI0.61 - Dimensionless index (DVI) ESV Mod BP 75.52 ml [ 14.00 - 42.00 ] MV E Peak Vel1.3 m/s [ 0.6 - 1.3 ] EF Mod BP 53 % [ 54 - 74 ] MV A Peak Vel0.9 m/s [ 1.0 - 1.2 ] LV GLS -11.6 % [ -25.0 - -18.0 ] MV E/A1.5 ratio [ 0.8 - 1.5 ] LA Length 4C 6.73 cm MV Peak Vel1.5 m/s LA Length 2C 5.72 cm MV Peak PG9.00 mmHg LA Volume BP 85.60 ml MV Mean PG3 mmHg LA Volume Index 47.56 ml/m2 [ 16.00 - 34.00 ] MV VTI49.6 cm RV Base Dimen 2D 4.5 cm [ 2.5 - 4.2 ] MV Decel Enqm085.11 msec [ 104.00 - 258.00 ] TAPSE 2.77 cm [ 1.71 - 5.00 ] Med E` Vel3.2 cm/sec [ 8.0 - 25.0 ] RA Volume 63.69 ml Lat E` Vel5.4 cm/sec [ 10.0 - 25.0 ] RA Volume Index 35.38 ml/m2 Average E/E`30.23 AoR Diam 2D 3.00 cm [ 2.70 - 3.70 ] RV S`12.61 cm/sec Ao Root Index 1.67 cm/m2 [ 1.00 - 2.00 ] TR Peak Vel2.5 m/s [ 1.0 - 2.8 ] TR Peak PG 25.0 mmHg PV Peak Luis 1.0 m/s [ 0.4 - 0.8 ] PV Peak PG 4.00 mmHg PI Peak Luis 2.3 m/s PI Peak PG 21 mmHg PI PHT 286.15 sec Electronically Signed By: Boris Corona MD 03/06/2025 7:05:40 AM CDT us Bryan English MD CV ECHO PROCEDURES Final Res ult * (ABNORMAL) eGFR (03/03/2025 9:30 AM CDT) Pathologist [facility] eGFR 21(L) >=60 mL/min/1. 73 m2 Comment: Interpretive Data Reference Interval Normal >/= 90 mL/min/1.73m2 Mildly decreased* 60 - 89 mL/min/1.73m2 Mildly to moderately decreased 45 - 59 mL/min/1.73m2 Moderately to severely decreased 30 - 44 mL/min/1.73m2 Severely decreased 15 - 29 mL/min/1.73m2 Kidney Failure < 15 mL/min/1.73m2 *Relative to young adult level Estimated glomerular filtration rate is determined by the 2020 CKD-EPI equation recommended by the National Kidney Foundation (A Unifying Approach to GFR Estimation: Recommendations of the NKF-ASK Task Force on Reassessing the Inclusion of Race in Diagnosing Kidney Disease, JASN 2020). The CKD-EPI equation should not be used for patients with unstable renal function and has not been validated in children and those over 70. Current interpretive data was last reviewed 2021. Testing performed by: [address] [address] Blood 03/03/2025 9:30 AM CDT 03/03/2025 10:15 AM CDT us Stephanie Garcia MD LAB BLOOD ORDERABLE S Final Result [facility] [address] [facility] Department of Laboratories [place], [place] [id number] * Differential, auto (03/03/2025 9:30 AM CDT) Neutrophil abs 3.36 1.50 - 6.50 K/cumm Comment:Testing performed by : [address] [address] Imm gran abs 0.05 0.00 - 0.10 K/cumm [facility] Comment:Testing performed by : [address] [address] Lymphocyte abs 1.55 0.80 - 3.30 K/cumm [facility] Comment:Testing performed by : [address] [address] Monocyte abs 0.76 0.20 - 0.80 K/cumm [facility] Comment:Testing performed by : [address] [address] Eosinophil abs 0.29 0.00 - 0.50 K/cumm [facility] Comment:Testing performed by : [address] [address] Basophil abs 0.03 0.00 - 0.10 K/cumm [facility] Comment:Testing performed by : [address] [address] Neutrophil pct 55.6 % [facility] Comment: Interpretive Data Percent cell count reference ranges are not reported, since discordance with absolute values may lead to misinterpretation of CBC data. Current Interpretive Data was last revised on 2018. Testing performed by: [address] [address] Imm gran pct 0.8 % [facility] Comment: Interpretive Data Percent cell count reference ranges are not reported, since discordance with absolute values may lead to misinterpretation of CBC data. Current Interpretive Data was last revised on 2018. Testing performed by: [address] [address] Lymphocyte pct 25.7 % [facility] Comment: Interpretive Data Percent cell count reference ranges are not reported, since discordance with absolute values may lead to misinterpretation of CBC data. Current Interpretive Data was last revised on 2018. Testing performed by: [address] [address] Monocyte pct 12.6 % [facility] Comment: Interpretive Data Percent cell count reference ranges are not reported, since discordance with absolute values may lead to misinterpretation of CBC data. Current Interpretive Data was last revised on 2018. Testing performed by: [address] [address] Eosinophil pct 4.8 % [facility] Comment: Interpretive Data Percent cell count reference ranges are not reported, since discordance with absolute values may lead to misinterpretation of CBC data. Current Interpretive Data was last revised on 2018. Testing performed by: [address] [address] Basophil pct 0.5 % [facility] Comment: Interpretive Data Percent cell count reference ranges are not reported, since discordance with absolute values may lead to misinterpretation of CBC data. Current Interpretive Data was last revised on 2018. Testing performed by: [facility], [address] [place] [address]., [address] Blood 03/03/2025 9:30 AM CDT 03/03/2025 10:15 AM CDT Stephanie Garcia MD LAB BLOOD ORDERABLE S Final Result Performing Organization Address [facility] Co de Phone Number [id number] [place] [address] * Tacrolimus level trough (03/03/2025 9:30 AM CDT) Pathologist [facility] Tacrolimus trough 4.3 ng/mL Comment: Interpretive Data Testing performed by liquid chromatography-tandem mass spectrometry. Therapeutic concentrations vary depending on type of transplanted organ and time elapsed since transplant. Typical trough concentrations range from 5-15 ng/mL. This test was developed and its performance characteristics determined by the [facility] consistent with CLIA requirements. This test has not been cleared or approved by the [place] Food and Drug administration. Current interpretive data last reviewed 2020. Testing performed by: [facility], [address] [place]., [address] Blood 03/03/2025 9:30 AM CDT 03/03/2025 1:57 PM CDT Stephanie Garcia MD LAB BLOOD ORDERABLE S Final Result Performing Organization Address [facility] de Phone Number [facility] [address] [facility] [place] [address] * (ABNORMAL) CBC with auto differential (03/03/2025 9:30 AM CDT) [facility] WBC 6.04 3.80 - 9.90 K/cumm Comment:Testing performed by : [facility], [address] [place] [address]., [address] Hgb 8.7(L) 11.9 - 15.5 g/dL [facility] Comment:Testing performed by : [address], [address] Hct 28.3(L) 35.6 - 45.5 % [facility] Comment:Testing performed by : [address] [address] Plt 113(L) 150 - 400 K/cumm [facility] Comment:Testing performed by : [address] [address] MPV 9.7 9.1 - 12.3 fL [facility] Comment:Testing performed by : [address] [address] RBC 2.79(L) 3.90 - 5.20 M/cumm [facility] Comment:Testing performed by : [address], [address] MCV 101.4(H) 81.3 - 96.4 fL [facility] Comment:Testing performed by : [address] [address] MCH 31.2 27.1 - 33.3 pg [facility] Comment:Testing performed by : [address] [address] MCHC 30.7(L) 32.3 - 35.7 g/dL [facility] Comment:Testing performed by : [address], [address] RDW CV 14.8 11.1 - 14.9 % [facility] Comment:Testing performed by : [address], [address] RDW SD 55.6(H) 35.7 - 48.1 fL [facility] Comment:Testing performed by : [address] [address] NRBC abs 0.00 0.00 - 0.01 K/cumm [facility] Comment:Testing performed by : [address], [address] Blood 03/03/2025 9:30 AM CDT 03/03/2025 10:15 AM CDT Stephanie Garcia MD LAB BLOOD ORDERABLE S Final Result [facility] [address] [facility] [place] [address] * (ABNORMAL) Renal function panel (03/03/2025 9:30 AM CDT) Sodium 139 135 - 145 mmol/L Comment:Testing performed by : [address] [address] Potassium, pl 4.0 3.3 - 4.9 mmol/L [facility] Comment:Testing performed by : [address] [address] Chloride 102 97 - 110 mmol/L [facility] Comment:Testing performed by : [address] [address] CO2 25 22 - 32 mmol/L [facility] Comment:Testing performed by : [address] [address] Anion gap 12 2 - 15 mmol/L [facility] Comment:Testing performed by : [address] [address] BUN 87(H) 6 - 25 mg/dL [facility] Comment:Testing performed by : [address] [address] Creatinine 2.36(H) 0.60 - 1.10 mg/dL [facility] Comment:Testing performed by : [address] [address] Glucose 83 70 - 199 mg/dL [facility] Comment: Interpretive Data Fasting glucose >/= 126 mg/dl is diagnostic for diabetes. Fasting is defined as no caloric intake for at least 8 hours. Fasting glucose between 100 mg/dl to 125 mg/dl is diagnostic of prediabetes. In a patient with classic symptoms of hyperglycemia or hyperglycemic crisis, a random glucose >/= 200 mg/dl is diagnostic for diabetes. In the absence of unequivocal hyperglycemia, results should be confirmed by repeat testing. The classification and Diagnosis of Diabetes Diabetes Care 202; 46: S19-S40. Current interpretive data was last revised 2022. Testing performed by: [facility] [address] [place] [address]., [address] Calcium 8.8 8.5 - 10.3 mg/dL [facility] Comment:Testing performed by : [address] [address] Phosphorus, pl 3.7 2.3 - 4.5 mg/dL [facility] Comment:Testing performed by : [address] [address] Albumin 3.5 3.5 - 5.0 g/dL [facility] Comment:Testing performed by : [address] [address] Blood 03/03/2025 9:30 AM CDT 03/03/2025 10:15 AM CDT us Stephanie Garcia MD LAB BLOOD ORDERABLE S Final Result Performing Organization Address City/State/[facility] Co de Phone Number [facility] [address] [facility] [place] [address] * (ABNORMAL) POCT urinalysis dipstick (02/28/2025 11:35 AM CDT) Pathologist [facility] Glucose, ur, POC Negative Negative MG/DL Bilirubin, ur, POC Negative Negative, Small, Moderate, Large Ketones, ur, POC Negative Negative Specific Spelter, POC 1.010 1.003 - 1.030 Blood, ur, POC Hemolyzed, trace(A) Negative pH, ur, POC 6.0 5.0 - 8.0 Protein, ur, POC 1+(A) Negative Urobilinogen, urine, POC 0.2 0.2 - 1.0 mg/dL Nitrite, ur, POC Negative Negative Leukocytes, ur, POC 1+(A) Negative Lot Number [id number] Urine 02/28/2025 11:3 5 AM CDT us Macario Sparks MD POINT OF CARE TEST ORDE RABLES Final Result * (ABNORMAL) eGFR (02/27/2025 9:15 AM CDT) Pathologist [facility] eGFR 19(L) >=60 mL/min/1. 73 m2 Comment: Interpretive Data Reference Interval Normal >/= 90 mL/min/1.73m2 Mildly decreased* 60 - 89 mL/min/1.73m2 Mildly to moderately decreased 45 - 59 mL/min/1.73m2 Moderately to severely decreased 30 - 44 mL/min/1.73m2 Severely decreased 15 - 29 mL/min/1.73m2 Kidney Failure < 15 mL/min/1.73m2 *Relative to young adult level Estimated glomerular filtration rate is determined by the 2020 CKD-EPI equation recommended by the National Kidney Foundation (A Unifying Approach to GFR Estimation: Recommendations of the NKF-ASK Task Force on Reassessing the Inclusion of Race in Diagnosing Kidney Disease, JASN 2020). The CKD-EPI equation should not be used for patients with unstable renal function and has not been validated in children and those over 70. Current interpretive data was last reviewed 2021. Testing performed by: [address] [address] Blood 02/27/2025 9:15 AM CDT 02/27/2025 10:56 AM CDT us Sarahi Turner MD LAB BLOOD ORDERABLES Final Resu lt ABEBE [address] [facility] Department of Laboratories [place], [place] [id number] * Differential, auto (02/27/2025 9:15 AM CDT) Pathologist [facility] Neutrophil abs 3.55 1.50 - 6.50 K/cumm Comment:Testing performed by : [address] [address] Imm gran abs 0.03 0.00 - 0.10 K/cumm ABEBE LOYA Comment:Testing performed by : [address] [address] Lymphocyte abs 1.46 0.80 - 3.30 K/cumm ABEBE LOYA Comment:Testing performed by : [address] [address] Monocyte abs 0.74 0.20 - 0.80 K/cumm [facility] Comment:Testing performed by : [address] [address] Eosinophil abs 0.27 0.00 - 0.50 K/cumm [facility] Comment:Testing performed by : [address] [address] Basophil abs 0.03 0.00 - 0.10 K/cumm [facility] Comment:Testing performed by : [address] [address] Neutrophil pct 58.4 % [facility] Comment: Interpretive Data Percent cell count reference ranges are not reported, since discordance with absolute values may lead to misinterpretation of CBC data. Current Interpretive Data was last revised on 2018. Testing performed by: [address] [address] Imm gran pct 0.5 % [facility] Comment: Interpretive Data Percent cell count reference ranges are not reported, since discordance with absolute values may lead to misinterpretation of CBC data. Current Interpretive Data was last revised on 2018. Testing performed by: [address] [address] Lymphocyte pct 24.0 % [facility] Comment: Interpretive Data Percent cell count reference ranges are not reported, since discordance with absolute values may lead to misinterpretation of CBC data. Current Interpretive Data was last revised on 2018. Testing performed by: [address] [address] Monocyte pct 12.2 % [facility] Comment: Interpretive Data Percent cell count reference ranges are not reported, since discordance with absolute values may lead to misinterpretation of CBC data. Current Interpretive Data was last revised on 2018. Testing performed by: [address] [address] Eosinophil pct 4.4 % [facility] Comment: Interpretive Data Percent cell count reference ranges are not reported, since discordance with absolute values may lead to misinterpretation of CBC data. Current Interpretive Data was last revised on 2018. Testing performed by: [address] [address] Basophil pct 0.5 % [facility] Comment: Interpretive Data Percent cell count reference ranges are not reported, since discordance with absolute values may lead to misinterpretation of CBC data. Current Interpretive Data was last revised on 2018. Testing performed by: [facility], [address] [place]., [address] Blood 02/27/2025 9:15 AM CDT 02/27/2025 10:55 AM CDT Sarahi Turner MD LAB BLOOD ORDERABLES Final Resu lt Performing Organization Address [facility] Co de Phone Number ABEBE [address] [facility] [place] [address] * Tacrolimus level trough (02/27/2025 9:15 AM CDT) Tacrolimus trough 4.3 ng/mL Comment: Interpretive Data Testing performed by liquid chromatography-tandem mass spectrometry. Therapeutic concentrations vary depending on type of transplanted organ and time elapsed since transplant. Typical trough concentrations range from 5-15 ng/mL. This test was developed and its performance characteristics determined by the [facility] consistent with CLIA requirements. This test has not been cleared or approved by the US Food and Drug administration. Current interpretive data last reviewed 2020. Testing performed by: [facility], [address] [place]., [address] Blood 02/27/2025 9:15 AM CDT 02/27/2025 1:32 PM CDT Sarahi Turner MD LAB BLOOD ORDERABLES Final Resu lt Performing Organization Address [facility] Co de Phone Number [facility] [address] [facility] [place] [address] * (ABNORMAL) CBC with auto differential (02/27/2025 9:15 AM CDT) WBC 6.08 3.80 - 9.90 K/cumm Comment:Testing performed by : [address] [address] Hgb 9.1(L) 11.9 - 15.5 g/dL ABEBE Comment:Testing performed by : [address] [address] Hct 29.2(L) 35.6 - 45.5 % [place] Comment:Testing performed by : [address] [address] Plt 121(L) 150 - 400 K/cumm ABEBE Comment:Testing performed by : [address] [address] MPV 9.3 9.1 - 12.3 fL [facility]BEBE Comment:Testing performed by : [address] [address] RBC 2.87(L) 3.90 - 5.20 M/cumm ABEBE Comment:Testing performed by : [address] [address] MCV 101.7(H) 81.3 - 96.4 fL [place] Comment:Testing performed by : [address] [address] MCH 31.7 27.1 - 33.3 pg [place] Comment:Testing performed by : [address] [address] MCHC 31.2(L) 32.3 - 35.7 g/dL [place] Comment:Testing performed by : [address], [address] RDW CV 15.1(H) 11.1 - 14.9 % ABEBE Comment:Testing performed by : [address], [address] RDW SD 56.6(H) 35.7 - 48.1 fL [place] Comment:Testing performed by : [address] [address] NRBC abs 0.00 0.00 - 0.01 K/cumm ABEBE Comment:Testing performed by : [address], [address] Blood 02/27/2025 9:15 AM CDT 02/27/2025 10:55 AM CDT us Sarahi Turner MD LAB BLOOD ORDERABLES Final Resu lt [place] [address] [facility] [place] [address] * (ABNORMAL) Renal function panel (02/27/2025 9:15 AM CDT) Sodium 133(L) 135 - 145 mmol/L Comment:Testing performed by : [address] [address] Potassium, pl 4.2 3.3 - 4.9 mmol/L [facility]BE Comment:Testing performed by : [address] [address] Chloride 95(L) 97 - 110 mmol/L [facility]BEBE Comment:Testing performed by : [address] [address] CO2 26 22 - 32 mmol/L [facility] Comment:Testing performed by : [address] [address] Anion gap 12 2 - 15 mmol/L [facility] Comment:Testing performed by : [address] [address] BUN 94(H) 6 - 25 mg/dL [facility]BE Comment:Testing performed by : [address] [address] Creatinine 2.60(H) 0.60 - 1.10 mg/dL [facility]BE Comment:Testing performed by : [address] [address] Glucose 78 70 - 199 mg/dL ABEBE Comment: Interpretive Data Fasting glucose >/= 126 mg/dl is diagnostic for diabetes. Fasting is defined as no caloric intake for at least 8 hours. Fasting glucose between 100 mg/dl to 125 mg/dl is diagnostic of prediabetes. In a patient with classic symptoms of hyperglycemia or hyperglycemic crisis, a random glucose >/= 200 mg/dl is diagnostic for diabetes. In the absence of unequivocal hyperglycemia, results should be confirmed by repeat testing. The classification and Diagnosis of Diabetes Diabetes Care 2021; 46: S19-S40. Current interpretive data was last revised 2022. Testing performed by: [facility], [address] [place] [address]., [address] Calcium 8.2(L) 8.5 - 10.3 mg/dL [facility]BEBE Comment:Testing performed by : [address] [address] Phosphorus, pl 4.1 2.3 - 4.5 mg/dL [facility]BE LOYA Comment:Testing performed by : [address] [address] Albumin 3.4(L) 3.5 - 5.0 g/dL [facility]BEBE Comment:Testing performed by : [address] [address] Blood 02/27/2025 9:15 AM CDT 02/27/2025 10:56 AM CDT us Sarahi Turner MD LAB BLOOD ORDERABLES Final Resu lt [place] [address] [facility] [place] [address] * (ABNORMAL) eGFR (02/24/2025 9:45 AM CDT) eGFR 19(L) >=60 mL/min/1. 73 m2 Comment: Interpretive Data Reference Interval Normal >/= 90 mL/min/1.73m2 Mildly decreased* 60 - 89 mL/min/1.73m2 Mildly to moderately decreased 45 - 59 mL/min/1.73m2 Moderately to severely decreased 30 - 44 mL/min/1.73m2 Severely decreased 15 - 29 mL/min/1.73m2 Kidney Failure < 15 mL/min/1.73m2 *Relative to young adult level Estimated glomerular filtration rate is determined by the 2020 CKD-EPI equation recommended by the National Kidney Foundation (A Unifying Approach to GFR Estimation: Recommendations of the NKF-ASK Task Force on Reassessing the Inclusion of Race in Diagnosing Kidney Disease, JASN 2020). The CKD-EPI equation should not be used for patients with unstable renal function and has not been validated in children and those over 70. Current interpretive data was last reviewed 2021. Testing performed by: [address] [address] Blood 02/24/2025 9:45 AM CDT 02/24/2025 10:11 AM CDT us Sarahi Turner MD LAB BLOOD ORDERABLES Final Resu lt [place] [id number] [facility] [place] [address] * Differential, auto (02/24/2025 9:45 AM CDT) Pathologist [facility] Neutrophil abs 3.63 1.50 - 6.50 K/cumm Comment:Testing performed by : [address] [address] Imm gran abs 0.05 0.00 - 0.10 K/cumm ABEBE Comment:Testing performed by : [address] [address] Lymphocyte abs 1.49 0.80 - 3.30 K/cumm ABEBE Comment:Testing performed by : [address] [address] Monocyte abs 0.80 0.20 - 0.80 K/cumm ABEBE Comment:Testing performed by : [address] [address] Eosinophil abs 0.25 0.00 - 0.50 K/cumm ABEBE Comment:Testing performed by : [address] [address] Basophil abs 0.03 0.00 - 0.10 K/cumm ABEBE Comment:Testing performed by : [address] [address] Neutrophil pct 58.1 % ABEBE Comment: Interpretive Data Percent cell count reference ranges are not reported, since discordance with absolute values may lead to misinterpretation of CBC data. Current Interpretive Data was last revised on 2018. Testing performed by: [address] [address] Imm gran pct 0.8 % [facility] Comment: Interpretive Data Percent cell count reference ranges are not reported, since discordance with absolute values may lead to misinterpretation of CBC data. Current Interpretive Data was last revised on 2018. Testing performed by: [address] [address] Lymphocyte pct 23.8 % [facility] Comment: Interpretive Data Percent cell count reference ranges are not reported, since discordance with absolute values may lead to misinterpretation of CBC data. Current Interpretive Data was last revised on 2018. Testing performed by: [address] [address] Monocyte pct 12.8 % [facility] Comment: Interpretive Data Percent cell count reference ranges are not reported, since discordance with absolute values may lead to misinterpretation of CBC data. Current Interpretive Data was last revised on 2018. Testing performed by: [address] [address] Eosinophil pct 4.0 % [facility] Comment: Interpretive Data Percent cell count reference ranges are not reported, since discordance with absolute values may lead to misinterpretation of CBC data. Current Interpretive Data was last revised on 2018. Testing performed by: [address] [address] Basophil pct 0.5 % [facility] Comment: Interpretive Data Percent cell count reference ranges are not reported, since discordance with absolute values may lead to misinterpretation of CBC data. Current Interpretive Data was last revised on 2018. Testing performed by: [address] [address] Blood 02/24/2025 9:45 AM CDT 02/24/2025 10:10 AM CDT us Sarahi Turner MD LAB BLOOD ORDERABLES Final Resu lt ABEBE [address] [facility] [place] [address] * Tacrolimus level trough (02/24/2025 9:45 AM CDT) [facility] Tacrolimus trough 5.0 ng/mL Comment: Interpretive Data Testing performed by liquid chromatography-tandem mass spectrometry. Therapeutic concentrations vary depending on type of transplanted organ and time elapsed since transplant. Typical trough concentrations range from 5-15 ng/mL. This test was developed and its performance characteristics determined by the [facility] consistent with CLIA requirements. This test has not been cleared or approved by the US Food and Drug administration. Current interpretive data last reviewed 2020. Testing performed by: [facility], [address] [place]., [address] Blood 02/24/2025 9:45 AM CDT 02/24/2025 1:30 PM CDT us Sarahi Turner MD LAB BLOOD ORDERABLES Final Resu lt ABEBE LOYA [address] [facility] [place] [address] * (ABNORMAL) CBC with auto differential (02/24/2025 9:45 AM CDT) [facility] WBC 6.25 3.80 - 9.90 K/cumm Comment:Testing performed by : [address] [address] Hgb 8.6(L) 11.9 - 15.5 g/dL ABEBE LOYA Comment:Testing performed by : [address] [address] Hct 27.3(L) 35.6 - 45.5 % ABEBE LOYA Comment:Testing performed by : [address] [address] Plt 151 150 - 400 K/cumm ABEBE LOYA Comment:Testing performed by : [address] [address] MPV 9.0(L) 9.1 - 12.3 fL ABEBE LOYA Comment:Testing performed by : [address] [address] RBC 2.73(L) 3.90 - 5.20 M/cumm ABEBE LOYA Comment:Testing performed by : [address] [address] MCV 100.0(H) 81.3 - 96.4 fL ABEBE Comment:Testing performed by : [address] [address] MCH 31.5 27.1 - 33.3 pg ABEBE Comment:Testing performed by : [address] [address] MCHC 31.5(L) 32.3 - 35.7 g/dL ABEBE Comment:Testing performed by : [address] [address] RDW CV 15.2(H) 11.1 - 14.9 % ABEBE Comment:Testing performed by : [address], [address] RDW SD 56.2(H) 35.7 - 48.1 fL AEBBE Comment:Testing performed by : [address] [address] NRBC abs 0.00 0.00 - 0.01 K/cumm ABEBE Comment:Testing performed by : [address] [address] Blood 02/24/2025 9:45 AM CDT 02/24/2025 10:10 AM CDT us Sarahi Turner MD LAB BLOOD ORDERABLES Final Resu lt ABEBE [address] [facility] [place] [address] * (ABNORMAL) Renal function panel (02/24/2025 9:45 AM CDT) Sodium 134(L) 135 - 145 mmol/L Comment:Testing performed by : [address] [address] Potassium, pl 4.3 3.3 - 4.9 mmol/L [facility] Comment:Testing performed by : [address] [address] Chloride 96(L) 97 - 110 mmol/L [facility] Comment:Testing performed by : [address] [address] CO2 25 22 - 32 mmol/L [facility] Comment:Testing performed by : [address] [address] Anion gap 13 2 - 15 mmol/L [facility] Comment:Testing performed by : [address] [address] BUN 92(H) 6 - 25 mg/dL [facility] Comment:Testing performed by : [address] [address] Creatinine 2.54(H) 0.60 - 1.10 mg/dL [facility] Comment:Testing performed by : [address] [address] Glucose 85 70 - 199 mg/dL [facility] Comment: Interpretive Data Fasting glucose >/= 126 mg/dl is diagnostic for diabetes. Fasting is defined as no caloric intake for at least 8 hours. Fasting glucose between 100 mg/dl to 125 mg/dl is diagnostic of prediabetes. In a patient with classic symptoms of hyperglycemia or hyperglycemic crisis, a random glucose >/= 200 mg/dl is diagnostic for diabetes. In the absence of unequivocal hyperglycemia, results should be confirmed by repeat testing. The classification and Diagnosis of Diabetes Diabetes Care 202; 46: S19-S40. Current interpretive data was last revised 2022. Testing performed by: [address] [address] Calcium 8.0(L) 8.5 - 10.3 mg/dL [facility] Comment:Testing performed by : [address] [address] Phosphorus, pl 4.6(H) 2.3 - 4.5 mg/dL [facility] Comment:Testing performed by : [address] [address] Albumin 3.5 3.5 - 5.0 g/dL [facility] Comment:Testing performed by : [facility], [address] [place] [address]., [address] Blood 02/24/2025 9:45 AM CDT 02/24/2025 10:11 AM CDT us Sarahi Turner MD LAB BLOOD ORDERABLES Final Resu lt Performing Organization Address [facility] Co de Phone Number ABEBE [address] [place] [address] * (ABNORMAL) eGFR (02/20/2025 11:00 AM CDT) eGFR 18(L) >=60 mL/min/1. 73 m2 Comment: Interpretive Data Reference Interval Normal >/= 90 mL/min/1.73m2 Mildly decreased* 60 - 89 mL/min/1.73m2 Mildly to moderately decreased 45 - 59 mL/min/1.73m2 Moderately to severely decreased 30 - 44 mL/min/1.73m2 Severely decreased 15 - 29 mL/min/1.73m2 Kidney Failure < 15 mL/min/1.73m2 *Relative to young adult level Estimated glomerular filtration rate is determined by the 2020 CKD-EPI equation recommended by the National Kidney Foundation (A Unifying Approach to GFR Estimation: Recommendations of the NKF-ASK Task Force on Reassessing the Inclusion of Race in Diagnosing Kidney Disease, JASN 2020). The CKD-EPI equation should not be used for patients with unstable renal function and has not been validated in children and those over 70. Current interpretive data was last reviewed 2021. Testing performed by: [facility], [address] [place] [address]., [address] Blood 02/20/2025 11:0 0 AM CDT 02/20/2025 11:21 AM CDT Stephanie Garcia MD LAB BLOOD ORDERABLE S Final Result Performing Organization Address [facility]/ZIP Co de Phone Number [place] [id number] [facility] [place] [address] * Differential, auto (02/20/2025 11:00 AM CDT) Neutrophil abs 3.26 1.50 - 6.50 K/cumm Comment:Testing performed by : [address] [address] Imm gran abs 0.07 0.00 - 0.10 K/cumm [facility] Comment:Testing performed by : [address] [address] Lymphocyte abs 1.81 0.80 - 3.30 K/cumm [facility] Comment:Testing performed by : [address] [address] Monocyte abs 0.62 0.20 - 0.80 K/cumm [facility] Comment:Testing performed by : [address] [address] Eosinophil abs 0.24 0.00 - 0.50 K/cumm [facility] Comment:Testing performed by : [address] [address] Basophil abs 0.04 0.00 - 0.10 K/cumm [facility] Comment:Testing performed by : [address] [address] Neutrophil pct 53.8 % [facility] Comment: Interpretive Data Percent cell count reference ranges are not reported, since discordance with absolute values may lead to misinterpretation of CBC data. Current Interpretive Data was last revised on 2018. Testing performed by: [address] [address] Imm gran pct 1.2 % [facility] Comment: Interpretive Data Percent cell count reference ranges are not reported, since discordance with absolute values may lead to misinterpretation of CBC data. Current Interpretive Data was last revised on 2018. Testing performed by: [address] [address] Lymphocyte pct 30.0 % [facility] Comment: Interpretive Data Percent cell count reference ranges are not reported, since discordance with absolute values may lead to misinterpretation of CBC data. Current Interpretive Data was last revised on 2018. Testing performed by: [address] [address] Monocyte pct 10.3 % [facility] Comment: Interpretive Data Percent cell count reference ranges are not reported, since discordance with absolute values may lead to misinterpretation of CBC data. Current Interpretive Data was last revised on 2018. Testing performed by: [address] [address] Eosinophil pct 4.0 % [facility] Comment: Interpretive Data Percent cell count reference ranges are not reported, since discordance with absolute values may lead to misinterpretation of CBC data. Current Interpretive Data was last revised on 2018. Testing performed by: [address] [address] Basophil pct 0.7 % [facility] Comment: Interpretive Data Percent cell count reference ranges are not reported, since discordance with absolute values may lead to misinterpretation of CBC data. Current Interpretive Data was last revised on 2018. Testing performed by: [address] [address] Blood 02/20/2025 11:0 0 AM CDT 02/20/2025 11:21 AM CDT us Stephanie Garcia MD LAB BLOOD ORDERABLE S Final Result ABEBE [address] [facility] [place] [address] * Tacrolimus level trough (02/20/2025 11:00 AM CDT) Pathologist [facility] Tacrolimus trough 7.4 ng/mL Comment: Interpretive Data Testing performed by liquid chromatography-tandem mass spectrometry. Therapeutic concentrations vary depending on type of transplanted organ and time elapsed since transplant. Typical trough concentrations range from 5-15 ng/mL. This test was developed and its performance characteristics determined by the [facility] consistent with CLIA requirements. This test has not been cleared or approved by the [place] Food and Drug administration. Current interpretive data last reviewed 2020. Testing performed by: [facility], [address] [facility] [place] [address] Blood 02/20/2025 11:0 0 AM CDT 02/20/2025 3:25 PM CDT us Stephanie Garcia MD LAB BLOOD ORDERABLE S Final Result [facility] [address] [facility] [place] [address] * (ABNORMAL) CBC with auto differential (02/20/2025 11:00 AM CDT) WBC 6.04 3.80 - 9.90 K/cumm Comment:Testing performed by : [address] [address] Hgb 8.4(L) 11.9 - 15.5 g/dL ABEBE Comment:Testing performed by : [address] [address] Hct 27.9(L) 35.6 - 45.5 % [facility]BE Comment:Testing performed by : [address] [address] Plt 215 150 - 400 K/cumm [facility]BE Comment:Testing performed by : [address] [address] MPV 9.0(L) 9.1 - 12.3 fL [facility] Comment:Testing performed by : [address] [address] RBC 2.72(L) 3.90 - 5.20 M/cumm [facility] Comment:Testing performed by : [address] [address] MCV 102.6(H) 81.3 - 96.4 fL [facility] Comment:Testing performed by : [address] [address] MCH 30.9 27.1 - 33.3 pg [facility]BE Comment:Testing performed by : [address] [address] MCHC 30.1(L) 32.3 - 35.7 g/dL [facility] LOYA Comment:Testing performed by : [facility], [address] [place] [address]., [address] RDW CV 15.3(H) 11.1 - 14.9 % [facility] LOYA Comment:Testing performed by : [address] [address] RDW SD 57.5(H) 35.7 - 48.1 fL [facility] LOYA Comment:Testing performed by : [address] [address] NRBC abs 0.00 0.00 - 0.01 K/cumm [facility]BE LOYA Comment:Testing performed by : [address] [address] Blood 02/20/2025 11:0 0 AM CDT 02/20/2025 11:21 AM CDT us Stephanie Garcia MD LAB BLOOD ORDERABLE S Final Result [facility] [place] [address] * (ABNORMAL) Renal function panel (02/20/2025 11:00 AM CDT) Sodium 135 135 - 145 mmol/L Comment:Testing performed by : [address] [address] Potassium, pl 4.4 3.3 - 4.9 mmol/L [facility]BE LOYA Comment:Testing performed by : [address] [address] Chloride 98 97 - 110 mmol/L [facility] LOYA Comment:Testing performed by : [address] [address] CO2 26 22 - 32 mmol/L [facility] LOYA Comment:Testing performed by : [address] [address] Anion gap 11 2 - 15 mmol/L [facility] LOYA Comment:Testing performed by : [address] [address] BUN 92(H) 6 - 25 mg/dL [facility] LOYA Comment:Testing performed by : [address] [address] Creatinine 2.73(H) 0.60 - 1.10 mg/dL [facility]BE Comment:Testing performed by : [address] [address] Glucose 79 70 - 199 mg/dL [facility] Comment: Interpretive Data Fasting glucose >/= 126 mg/dl is diagnostic for diabetes. Fasting is defined as no caloric intake for at least 8 hours. Fasting glucose between 100 mg/dl to 125 mg/dl is diagnostic of prediabetes. In a patient with classic symptoms of hyperglycemia or hyperglycemic crisis, a random glucose >/= 200 mg/dl is diagnostic for diabetes. In the absence of unequivocal hyperglycemia, results should be confirmed by repeat testing. The classification and Diagnosis of Diabetes Diabetes Care 202; 46: S19-S40. Current interpretive data was last revised 2022. Testing performed by: [address] [address] Calcium 8.5 8.5 - 10.3 mg/dL [facility]BE Comment:Testing performed by : [address] [address] Phosphorus, pl 4.2 2.3 - 4.5 mg/dL [facility] Comment:Testing performed by : [address] [address] Albumin 3.6 3.5 - 5.0 g/dL [facility]BE Comment:Testing performed by : [address] [address] Blood 02/20/2025 11:0 0 AM CDT 02/20/2025 11:21 AM CDT us Stephanie Garcia MD LAB BLOOD ORDERABLE S Final Result [facility] [address] [facility] [place] [address] * (ABNORMAL) POCT urinalysis dipstick (02/17/2025 11:53 AM CDT) Glucose, ur, POC Negative Negative MG/DL Bilirubin, ur, POC Negative Negative, Small, Moderate, Large Ketones, ur, POC Negative Negative Specific Spelter, POC Comment:<=1.005 Blood, ur, POC Non-hemolyze d, trace(A) Negative pH, ur, POC 5.5 5.0 - 8.0 Protein, ur, POC 30.(A) Negative Urobilinogen, urine, POC 0.2 0.2 - 1.0 mg/dL Nitrite, ur, POC Negative Negative Leukocytes, ur, POC Small(A) Negative Lot Number [id number] Urine 02/17/2025 11:5 3 AM CDT us Sarahi Turner MD POINT OF CARE TEST ORDERABLES F inal Result * (ABNORMAL) eGFR (02/17/2025 9:45 AM CDT) Pathologist [facility] eGFR 20(L) >=60 mL/min/1. 73 m2 Comment: Interpretive Data Reference Interval Normal >/= 90 mL/min/1.73m2 Mildly decreased* 60 - 89 mL/min/1.73m2 Mildly to moderately decreased 45 - 59 mL/min/1.73m2 Moderately to severely decreased 30 - 44 mL/min/1.73m2 Severely decreased 15 - 29 mL/min/1.73m2 Kidney Failure < 15 mL/min/1.73m2 *Relative to young adult level Estimated glomerular filtration rate is determined by the 2020 CKD-EPI equation recommended by the National Kidney [employer] (A Unifying Approach to GFR Estimation: Recommendations of the NKF-ASK Task Force on Reassessing the Inclusion of Race in Diagnosing Kidney Disease, JASN 2020). The CKD-EPI equation should not be used for patients with unstable renal function and has not been validated in children and those over 70. Current interpretive data was last reviewed 2021. Testing performed by: [facility], [address] [place] [address]., [address] Blood 02/17/2025 9:45 AM CDT 02/17/2025 1:06 PM CDT Sarahi Turner MD LAB BLOOD ORDERABLES Final Resu lt [facility] [address] [facility] [place] [address] * Differential, auto (02/17/2025 9:45 AM CDT) Neutrophil abs 2.62 1.50 - 6.50 K/cumm Comment:Testing performed by : [address] [address] Imm gran abs 0.05 0.00 - 0.10 K/cumm ABEBE Comment:Testing performed by : [address] [address] Lymphocyte abs 1.48 0.80 - 3.30 K/cumm ABEBE Comment:Testing performed by : [address] [address] Monocyte abs 0.56 0.20 - 0.80 K/cumm ABEBE Comment:Testing performed by : [address] [address] Eosinophil abs 0.30 0.00 - 0.50 K/cumm ABEBE Comment:Testing performed by : [address] [address] Basophil abs 0.05 0.00 - 0.10 K/cumm ABEBE Comment:Testing performed by : [address] [address] Neutrophil pct 51.8 % [facility] Comment: Interpretive Data Percent cell count reference ranges are not reported, since discordance with absolute values may lead to misinterpretation of CBC data. Current Interpretive Data was last revised on 2018. Testing performed by: [address] [address] Imm gran pct 1.0 % [facility]BEBE Comment: Interpretive Data Percent cell count reference ranges are not reported, since discordance with absolute values may lead to misinterpretation of CBC data. Current Interpretive Data was last revised on 2018. Testing performed by: [address] [address] Lymphocyte pct 29.2 % [facility] Comment: Interpretive Data Percent cell count reference ranges are not reported, since discordance with absolute values may lead to misinterpretation of CBC data. Current Interpretive Data was last revised on 2018. Testing performed by: [address] [address] Monocyte pct 11.1 % [facility] Comment: Interpretive Data Percent cell count reference ranges are not reported, since discordance with absolute values may lead to misinterpretation of CBC data. Current Interpretive Data was last revised on 2018. Testing performed by: [address] [address] Eosinophil pct 5.9 % [facility] Comment: Interpretive Data Percent cell count reference ranges are not reported, since discordance with absolute values may lead to misinterpretation of CBC data. Current Interpretive Data was last revised on 2018. Testing performed by: [address] [address] Basophil pct 1.0 % [facility] Comment: Interpretive Data Percent cell count reference ranges are not reported, since discordance with absolute values may lead to misinterpretation of CBC data. Current Interpretive Data was last revised on 2018. Testing performed by: [address] [address] Blood 02/17/2025 9:45 AM CDT 02/17/2025 1:05 PM CDT us Sarahi Turner MD LAB BLOOD ORDERABLES Final Resu lt [facility] [address] [facility] Department of Laboratories [place], [place] [id number] * Tacrolimus level trough (02/17/2025 9:45 AM CDT) [facility] Tacrolimus trough 6.0 ng/mL Comment: Interpretive Data Testing performed by liquid chromatography-tandem mass spectrometry. Therapeutic concentrations vary depending on type of transplanted organ and time elapsed since transplant. Typical trough concentrations range from 5-15 ng/mL. This test was developed and its performance characteristics determined by the [facility] consistent with CLIA requirements. This test has not been cleared or approved by the [place] Food and Drug administration. Current interpretive data last reviewed 2020. Testing performed by: [facility], [address] [place]., [address] Blood 02/17/2025 9:45 AM CDT 02/17/2025 3:28 PM CDT us Sarahi Turner MD LAB BLOOD ORDERABLES Final Resu lt [facility] [address] [facility] [place] [address] * (ABNORMAL) CBC with auto differential (02/17/2025 9:45 AM CDT) WBC 5.06 3.80 - 9.90 K/cumm Comment:Testing performed by : [address] [address] Hgb 8.3(L) 11.9 - 15.5 g/dL ABEBE Comment:Testing performed by : [address] [address] Hct 27.7(L) 35.6 - 45.5 % ABEBE Comment:Testing performed by : [address] [address] Plt 234 150 - 400 K/cumm ABEBE Comment:Testing performed by : [address] [address] MPV 9.0(L) 9.1 - 12.3 fL ABEBE Comment:Testing performed by : [address] [address] RBC 2.69(L) 3.90 - 5.20 M/cumm ABEBE Comment:Testing performed by : [address] [address] MCV 103.0(H) 81.3 - 96.4 fL ABEBE Comment:Testing performed by : [address] [address] MCH 30.9 27.1 - 33.3 pg [facility] LOYA Comment:Testing performed by : [address] [address] MCHC 30.0(L) 32.3 - 35.7 g/dL [facility] LOYA Comment:Testing performed by : [address] [address] RDW CV 15.6(H) 11.1 - 14.9 % [facility] LOYA Comment:Testing performed by : [address] [address] RDW SD 58.9(H) 35.7 - 48.1 fL [facility] LOYA Comment:Testing performed by : [address] [address] NRBC abs 0.00 0.00 - 0.01 K/cumm [facility]BE LOYA Comment:Testing performed by : [address] [address] Blood 02/17/2025 9:45 AM CDT 02/17/2025 1:05 PM CDT us Sarahi Turner MD LAB BLOOD ORDERABLES Final Resu lt [facility] [address] [facility] [place] [address] * (ABNORMAL) Renal function panel (02/17/2025 9:45 AM CDT) Sodium 140 135 - 145 mmol/L Comment:Testing performed by : [address] [address] Potassium, pl 4.1 3.3 - 4.9 mmol/L [facility] LOYA Comment:Testing performed by : [address] [address] Chloride 100 97 - 110 mmol/L [facility] LOYA Comment:Testing performed by : [address] [address] CO2 28 22 - 32 mmol/L [facility] LOYA Comment:Testing performed by : [address] [address] Anion gap 12 2 - 15 mmol/L [facility] LOYA Comment:Testing performed by : [address] [address] BUN 92(H) 6 - 25 mg/dL [facility] LOYA Comment:Testing performed by : [address] [address] Creatinine 2.50(H) 0.60 - 1.10 mg/dL [facility] LOYA Comment:Testing performed by : [address] [address] Glucose 78 70 - 199 mg/dL ABEBE Comment: Interpretive Data Fasting glucose >/= 126 mg/dl is diagnostic for diabetes. Fasting is defined as no caloric intake for at least 8 hours. Fasting glucose between 100 mg/dl to 125 mg/dl is diagnostic of prediabetes. In a patient with classic symptoms of hyperglycemia or hyperglycemic crisis, a random glucose >/= 200 mg/dl is diagnostic for diabetes. In the absence of unequivocal hyperglycemia, results should be confirmed by repeat testing. The classification and Diagnosis of Diabetes Diabetes Care 2021; 46: S19-S40. Current interpretive data was last revised 2022. Testing performed by: [address] [address] Calcium 9.0 8.5 - 10.3 mg/dL [facility] LOYA Comment:Testing performed by : [address] [address] Phosphorus, pl 3.9 2.3 - 4.5 mg/dL [facility] LOYA Comment:Testing performed by : [address] [address] Albumin 3.4(L) 3.5 - 5.0 g/dL [facility] LOYA Comment:Testing performed by : [address] [address] Blood 02/17/2025 9:45 AM CDT 02/17/2025 1:06 PM CDT us Sarahi Turner MD LAB BLOOD ORDERABLES Final Resu lt [facility] LOYA [address] [facility] Department of Laboratories [place], [place] [phone] * Differential, auto (02/13/2025 1:30 PM CDT) Neutrophil abs 3.96 1.50 - 6.50 K/cumm Comment:Testing performed by : [address] [address] Imm gran abs 0.05 0.00 - 0.10 K/cumm ABEBE Comment:Testing performed by : [address] [address] Lymphocyte abs 1.59 0.80 - 3.30 K/cumm [facility] Comment:Testing performed by : [address] [address] Monocyte abs 0.65 0.20 - 0.80 K/cumm [facility] Comment:Testing performed by : [address] [address] Eosinophil abs 0.37 0.00 - 0.50 K/cumm [facility] Comment:Testing performed by : [address] [address] Basophil abs 0.04 0.00 - 0.10 K/cumm [facility] Comment:Testing performed by : [address] [address] Neutrophil pct 59.3 % [facility] Comment: Interpretive Data Percent cell count reference ranges are not reported, since discordance with absolute values may lead to misinterpretation of CBC data. Current Interpretive Data was last revised on 2018. Testing performed by: [address] [address] Imm gran pct 0.8 % [facility] Comment: Interpretive Data Percent cell count reference ranges are not reported, since discordance with absolute values may lead to misinterpretation of CBC data. Current Interpretive Data was last revised on 2018. Testing performed by: [address] [address] Lymphocyte pct 23.9 % [facility] Comment: Interpretive Data Percent cell count reference ranges are not reported, since discordance with absolute values may lead to misinterpretation of CBC data. Current Interpretive Data was last revised on 2018. Testing performed by: [address] [address] Monocyte pct 9.8 % [facility] Comment: Interpretive Data Percent cell count reference ranges are not reported, since discordance with absolute values may lead to misinterpretation of CBC data. Current Interpretive Data was last revised on 2018. Testing performed by: [address] [address] Eosinophil pct 5.6 % [facility] Comment: Interpretive Data Percent cell count reference ranges are not reported, since discordance with absolute values may lead to misinterpretation of CBC data. Current Interpretive Data was last revised on 2018. Testing performed by: [address] [address] Basophil pct 0.6 % [facility] Comment: Interpretive Data Percent cell count reference ranges are not reported, since discordance with absolute values may lead to misinterpretation of CBC data. Current Interpretive Data was last revised on 2018. Testing performed by: [address] [address] Blood 02/13/2025 1:30 PM CDT 02/13/2025 1:58 PM CDT us Sarahi Turner MD LAB BLOOD ORDERABLES Final Resu lt [facility] [address] [facility] [place] [address] * (ABNORMAL) CBC with auto differential (02/13/2025 1:30 PM CDT) WBC 6.66 3.80 - 9.90 K/cumm Comment:Testing performed by : [address] [address] Hgb 8.4(L) 11.9 - 15.5 g/dL [facility]BE LOYA Comment:Testing performed by : [address] [address] Hct 28.8(L) 35.6 - 45.5 % ABEBE Comment:Testing performed by : [address] [address] Plt 210 150 - 400 K/cumm ABEBE LOYA Comment:Testing performed by : [address] [address] MPV 9.3 9.1 - 12.3 fL [facility] LOYA Comment:Testing performed by : [address] [address] RBC 2.74(L) 3.90 - 5.20 M/cumm [facility] LOYA Comment:Testing performed by : [address] [address] MCV 105.1(H) 81.3 - 96.4 fL ABEBE Comment:Testing performed by : [address] [address] MCH 30.7 27.1 - 33.3 pg [facility] LOYA Comment:Testing performed by : [address] [address] MCHC 29.2(L) 32.3 - 35.7 g/dL ABEBE Comment:Testing performed by : [address] [address] RDW CV 16.2(H) 11.1 - 14.9 % [facility]BE Comment:Testing performed by : [address] [address] RDW SD 63.1(H) 35.7 - 48.1 fL [facility]BE Comment:Testing performed by : [address] [address] NRBC abs 0.00 0.00 - 0.01 K/cumm ABEBE Comment:Testing performed by : [address] [address] Blood 02/13/2025 1:30 PM CDT 02/13/2025 1:58 PM CDT us Sarahi Turner MD LAB BLOOD ORDERABLES Final Resu lt [facility] [address] [facility] [place] [address] * Tacrolimus level random (02/13/2025 1:30 PM CDT) Tacrolimus random 4.0 ng/mL Comment: Interpretive Data Testing performed by liquid chromatography-tandem mass spectrometry. Therapeutic concentrations vary depending on type of transplanted organ and time elapsed since transplant. Typical trough concentrations range from 5-15 ng/mL. This test was developed and its performance characteristics determined by the [facility] consistent with CLIA requirements. This test has not been cleared or approved by the [place] Food and Drug administration. Current interpretive data last reviewed 2020. Testing performed by: [facility], [address] [place] [address] Blood 02/13/2025 1:30 PM CDT 02/13/2025 5:44 PM CDT us Sarahi Turner MD LAB BLOOD ORDERABLES Final Resu lt [facility] [address] [facility] [place] [address] * (ABNORMAL) eGFR (02/10/2025 9:30 AM CDT) eGFR 22(L) >=60 mL/min/1. 73 m2 Comment: Interpretive Data Reference Interval Normal >/= 90 mL/min/1.73m2 Mildly decreased* 60 - 89 mL/min/1.73m2 Mildly to moderately decreased 45 - 59 mL/min/1.73m2 Moderately to severely decreased 30 - 44 mL/min/1.73m2 Severely decreased 15 - 29 mL/min/1.73m2 Kidney Failure < 15 mL/min/1.73m2 *Relative to young adult level Estimated glomerular filtration rate is determined by the 2020 CKD-EPI equation recommended by the National Kidney Foundation (A Unifying Approach to GFR Estimation: Recommendations of the NKF-ASK Task Force on Reassessing the Inclusion of Race in Diagnosing Kidney Disease, JASN 2020). The CKD-EPI equation should not be used for patients with unstable renal function and has not been validated in children and those over 70. Current interpretive data was last reviewed 2021. Testing performed by: [address] [address] Blood 02/10/2025 9:30 AM CDT 02/10/2025 11:41 AM CDT Ann Marie Ardno MD LAB BLOOD ORDERABLES Final Result [facility] [address] [facility] [place] [address] * Differential, auto (02/10/2025 9:30 AM CDT) Neutrophil abs 4.72 1.50 - 6.50 K/cumm Comment:Testing performed by : [address] [address] Imm gran abs 0.05 0.00 - 0.10 K/cumm ABEBE Comment:Testing performed by : [address] [address] Lymphocyte abs 1.67 0.80 - 3.30 K/cumm ABEBE Comment:Testing performed by : [address] [address] Monocyte abs 0.78 0.20 - 0.80 K/cumm ABEBE Comment:Testing performed by : [address] [address] Eosinophil abs 0.28 0.00 - 0.50 K/cumm ABEBE Comment:Testing performed by : [address] [address] Basophil abs 0.05 0.00 - 0.10 K/cumm ABEBE Comment:Testing performed by : [address] [address] Neutrophil pct 62.5 % [facility]BE Comment: Interpretive Data Percent cell count reference ranges are not reported, since discordance with absolute values may lead to misinterpretation of CBC data. Current Interpretive Data was last revised on 2018. Testing performed by: [address] [address] Imm gran pct 0.7 % [facility] Comment: Interpretive Data Percent cell count reference ranges are not reported, since discordance with absolute values may lead to misinterpretation of CBC data. Current Interpretive Data was last revised on 2018. Testing performed by: [address] [address] Lymphocyte pct 22.1 % [facility] Comment: Interpretive Data Percent cell count reference ranges are not reported, since discordance with absolute values may lead to misinterpretation of CBC data. Current Interpretive Data was last revised on 2018. Testing performed by: [address] [address] Monocyte pct 10.3 % [facility] Comment: Interpretive Data Percent cell count reference ranges are not reported, since discordance with absolute values may lead to misinterpretation of CBC data. Current Interpretive Data was last revised on 2018. Testing performed by: [address] [address] Eosinophil pct 3.7 % [facility] Comment: Interpretive Data Percent cell count reference ranges are not reported, since discordance with absolute values may lead to misinterpretation of CBC data. Current Interpretive Data was last revised on 2018. Testing performed by: [address] [address] Basophil pct 0.7 % [facility] Comment: Interpretive Data Percent cell count reference ranges are not reported, since discordance with absolute values may lead to misinterpretation of CBC data. Current Interpretive Data was last revised on 2018. Testing performed by: [address] [address] Blood 02/10/2025 9:30 AM CDT 02/10/2025 11:40 AM CDT us Ann Marie Ardon MD LAB BLOOD ORDERABLES Final Result [facility] [address] [facility] [place] [address] * Tacrolimus level trough (02/10/2025 9:30 AM CDT) [facility] Tacrolimus trough 5.6 ng/mL Comment: Interpretive Data Testing performed by liquid chromatography-tandem mass spectrometry. Therapeutic concentrations vary depending on type of transplanted organ and time elapsed since transplant. Typical trough concentrations range from 5-15 ng/mL. This test was developed and its performance characteristics determined by the [facility] consistent with CLIA requirements. This test has not been cleared or approved by the [place] Food and Drug administration. Current interpretive data last reviewed 2020. Testing performed by: [facility], [address] [place]., [address] Blood 02/10/2025 9:30 AM CDT 02/10/2025 3:50 PM CDT Ann Marie Ardon MD LAB BLOOD ORDERABLES Final Result [facility] [place] [address] * (ABNORMAL) CBC with auto differential (02/10/2025 9:30 AM CDT) [facility] WBC 7.55 3.80 - 9.90 K/cumm Comment:Testing performed by : [address] [address] Hgb 7.7(L) 11.9 - 15.5 g/dL [facility]BE LOYA Comment:Testing performed by : [address] [address] Hct 25.8(L) 35.6 - 45.5 % [facility]BE Comment:Testing performed by : [address] [address] Plt 179 150 - 400 K/cumm ABEBE Comment:Testing performed by : [address] [address] MPV 9.3 9.1 - 12.3 fL [facility] LOYA Comment:Testing performed by : [address] [address] RBC 2.50(L) 3.90 - 5.20 M/cumm [facility] LOYA Comment:Testing performed by : [address] [address] MCV 103.2(H) 81.3 - 96.4 fL [facility] LOYA Comment:Testing performed by : [address] [address] MCH 30.8 27.1 - 33.3 pg [facility] LOYA Comment:Testing performed by : [address] [address] MCHC 29.8(L) 32.3 - 35.7 g/dL [facility] LOYA Comment:Testing performed by : [address] [address] RDW CV 16.6(H) 11.1 - 14.9 % [facility] LOYA Comment:Testing performed by : [address] [address] RDW SD 63.7(H) 35.7 - 48.1 fL [facility] LOYA Comment:Testing performed by : [address] [address] NRBC abs 0.00 0.00 - 0.01 K/cumm [facility] LOYA Comment:Testing performed by : [address] [address] Blood 02/10/2025 9:30 AM CDT 02/10/2025 11:40 AM CDT us Ann Marie Ardon MD LAB BLOOD ORDERABLES Final Result Performing Organization Address City/State/[facility] Co de Phone Number ABEBE [address] [facility] Department of Laboratories [place], [place] [id number] * (ABNORMAL) Renal function panel (02/10/2025 9:30 AM CDT) Sodium 139 135 - 145 mmol/L Comment:Testing performed by : [address] [address] Potassium, pl 3.8 3.3 - 4.9 mmol/L [facility]BE LOYA Comment:Testing performed by : [address] [address] Chloride 99 97 - 110 mmol/L [facility] LOYA Comment:Testing performed by : [address] [address] CO2 25 22 - 32 mmol/L ABEBE Comment:Testing performed by : [address] [address] Anion gap 15 2 - 15 mmol/L ABEBE Comment:Testing performed by : [address] [address] BUN 105(H) 6 - 25 mg/dL [facility]BEBE Comment:Testing performed by : [address] [address] Creatinine 2.29(H) 0.60 - 1.10 mg/dL [facility]BEBE Comment:Testing performed by : [address] [address] Glucose 81 70 - 199 mg/dL [facility]BEBE Comment: Interpretive Data Fasting glucose >/= 126 mg/dl is diagnostic for diabetes. Fasting is defined as no caloric intake for at least 8 hours. Fasting glucose between 100 mg/dl to 125 mg/dl is diagnostic of prediabetes. In a patient with classic symptoms of hyperglycemia or hyperglycemic crisis, a random glucose >/= 200 mg/dl is diagnostic for diabetes. In the absence of unequivocal hyperglycemia, results should be confirmed by repeat testing. The classification and Diagnosis of Diabetes Diabetes Care 202; 46: S19-S40. Current interpretive data was last revised 2022. Testing performed by: [address] [address] Calcium 9.3 8.5 - 10.3 mg/dL [facility]BEBE Comment:Testing performed by : [address] [address] Phosphorus, pl 4.5 2.3 - 4.5 mg/dL [facility]BE Comment:Testing performed by : [address] [address] Albumin 3.2(L) 3.5 - 5.0 g/dL [facility]BE Comment:Testing performed by : [address] [address] Blood 02/10/2025 9:30 AM CDT 02/10/2025 11:41 AM CDT us Ann Marie Ardon MD LAB BLOOD ORDERABLES Final Result [facility] [address] [facility] [place] [address] * Allosure kidney donor-derived cell-free DNA (cFDNA) (02/06/2025 3:32 PM CDT) Allosure CFDNA 0.51% [facility] Comment: INTERPRETATION OF ALLOSURE KIDNEY RESULTS AlloSure measures the percent of donor-derived cell-free DNA (dd-cfDNA) in the total cell-free DNA present in kidney transplant recipients.(1),(2) AlloSure Relative Change Value (RCV) represents the percentage change from previous AlloSure Result.(4),(5) When interpreting AlloSure Result: >=1.0% dd-cfDNA is associated with a higher probability of active rejection compared to scores less than 1.0%.(2),(3) 0.21% dd-cfDNA is the median observed in a reference population of stable recipients.(4) When interpreting AlloSure RCV:* >61% increase in AlloSure Result from prior result exceeds the biological variability observed in the reference population.(4) >=149% increase in AlloSure Result from prior result may indicate a high likelihood of allograft injury.(5) NR - No Result, US - Unacceptable Sample, N/A - RCV is not calculated due to AlloSure Result below 0.20%. *The RCV threshold for Simultaneous Pancreas-Kidney (SPK) has not been established. Clinical validity of the AlloSure test was established in kidney transplant recipients who were at least 14 days post-transplant. AlloSure should be interpreted in the context of clinical findings and relevant patient history. For more information about AlloSure, please visit AlloSure.Interactive TKO. Specimens from kidney retransplant recipients in whom the prior kidney allograft(s) remain in situ and from SPK recipients(6),(7) are acceptable for testing. AlloSure is not intended for use in kidney transplant recipients who are , recipients of a transplant from a monozygotic twin, recipients of allogenic bone marrow transplant, or the recipients of multiple transplanted organs other than simultaneous pancreas-kidney transplant. Transfusion of blood components containing white blood cells in the 30 days prior to blood draw may lead to aberrant result. Renal biopsies performed in the 24 hours prior to AlloSure specimen collection may elevate dd-cfDNA. (1)Bernadette et al., J Mol Diagn 2016; (2)Maribel et al., J Am Soc Nephrol 2017; (3)Malcolm et al., Pediatric Transplantation 2019; (4)Ruby et al., J Appl Lab Med 2017; (5)Jeffrey et al., Kidney International 2020;(6) Rayo et al.,Transplantation Direct 2021; (7)Abram et al., Transplantation Direct 2022 The AlloSure donor-derived cell-free DNA test was developed and its performance characteristics were determined by the [facility] laboratory. The test has not been cleared or approved by the U.S. Food and Drug Administration, nor is it currently required to be. The laboratory is certified under the Clinical Laboratory Improvement Amendments of 1988 (CLIA '88) and accredited by the [employer] [place] Pathologists (CAP) as qualified to perform high complexity clinical laboratory testing. The contents of this report are confidential and intended solely for the use of authorized personnel. AlloSure testing performed at [facility], [place]. [address] [place] [id number] (CLIA No: [id number], CAP No: [id number]) Truck Loader: Andre Lim M.D. Plasma 02/06/2025 3:32 PM CDT us Raza Sanon MD LAB BLOOD ORDERABLES Final R esult CARE * (ABNORMAL) Basic metabolic panel (02/06/2025 11:00 AM CDT) SCRIBED Sodium 129(A) 137 - 145 mmol/L [facility] SCRIBED Potassium 3.4(A) 3.5 - 5.1 mmol/L [facility] SCRIBED Chloride 97(A) 98 - 107 mmol/L [facility] SCRIBED Carbon Dioxide 26 22 - 30 mmol/L [facility] SCRIBED Anion Gap 9.4(A) 14 - 22 mmol/L [facility] SCRIBED Urea Nitrogen (BUN) 118(A) 8 - 19 mg/dl [facility] SCRIBED Creatinine 2.22(A) 0.66 - 1.25 mg/dl [facility] SCRIBED Glucose 117(A) 70 - 99 mg/dl [facility] SCRIBED Calcium 8.6 8.4 - 10.2 mg/dl [facility] SCRIBED eGFR in NonAfrican Citizen Of [place] 22 >60 mL/min [facility] Blood 02/06/2025 11:0 0 AM CDT us Historical Provider LAB BLOOD ORDERABLES Edit ed Result - Final Performing Organization Address City/[facility]/ZIP Co de Phone Number [facility] [address] [phone] * Sodium, whole blood (02/04/2025 5:45 AM CDT) Sodium, Whole Blood 135 135 - 145 mmol/L Blood 02/04/2025 5:45 AM CDT 02/04/2025 6:13 AM CDT us Holly Mix MEDIA ANALYST LAB BLOOD ORDERABLES Final Result Performing Organization Address [facility] Co de Phone Number [facility] Department [place] [address] * Potassium, whole blood (02/04/2025 5:45 AM CDT) Potassium, bld 4.0 3.3 - 4.9 mmol/L Blood 02/04/2025 5:45 AM CDT 02/04/2025 6:13 AM CDT Prabha Lagunas MEDIA ANALYST LAB BLOOD ORDERABLES Final Result Performing Organization Address City/[facility]/ZIP Co de Phone Number [facility] Department [place] [address] * Tacrolimus level trough (02/04/2025 5:45 AM CDT) Pathologist [facility] Tacrolimus trough 3.7 ng/mL Comment: Interpretive Data Testing performed by liquid chromatography-tandem mass spectrometry. Therapeutic concentrations vary depending on type of transplanted organ and time elapsed since transplant. Typical trough concentrations range from 5-15 ng/mL. This test was developed and its performance characteristics determined by the [facility] consistent with CLIA requirements. This test has not been cleared or approved by the US Food and Drug administration. Current interpretive data last reviewed 2020. Blood 02/04/2025 5:45 AM CDT 02/04/2025 6:17 AM CDT Narrative [facility] - 02/04/2025 9:12 AM CDT Please check before administering morning tacrolimus dose Gisselle Sheffield MD LAB BLOOD ORDERABLES Final Re sult [facility] Department [place] [address] * (ABNORMAL) eGFR (02/03/2025 9:28 PM CDT) [facility] eGFR 17(L) >=60 mL/min/1. 73 m2 Comment: Interpretive Data Reference Interval Normal >/= 90 mL/min/1.73m2 Mildly decreased* 60 - 89 mL/min/1.73m2 Mildly to moderately decreased 45 - 59 mL/min/1.73m2 Moderately to severely decreased 30 - 44 mL/min/1.73m2 Severely decreased 15 - 29 mL/min/1.73m2 Kidney Failure < 15 mL/min/1.73m2 *Relative to young adult level Estimated glomerular filtration rate is determined by the 2020 CKD-EPI equation recommended by the National Kidney Foundation (A Unifying Approach to GFR Estimation: Recommendations of the NKF-ASK Task Force on Reassessing the Inclusion of Race in Diagnosing Kidney Disease, JASN 2020). The CKD-EPI equation should not be used for patients with unstable renal function and has not been validated in children and those over 70. Current interpretive data was last reviewed 2021. Blood 02/03/2025 9:28 PM CDT 02/03/2025 10:18 PM CDT Prabha Lagunas MEDIA ANALYST LAB BLOOD ORDERABLES Final Result Performing Organization Address City/[facility] Co de Phone Number [facility] [place] [address] * (ABNORMAL) CBC without differential (02/03/2025 9:28 PM CDT) WBC 10.5(H) 3.8 - 9.9 K/cumm Hgb 7.2(L) 11.9 - 15.5 g/dL [facility] Hct 22.8(L) 35.6 - 45.5 % [facility] Plt 118(L) 150 - 400 K/cumm [facility] MPV 9.8 9.1 - 12.3 fL [facility] RBC 2.28(L) 3.90 - 5.20 M/cumm [facility] MCV 100.0(H) 81.3 - 96.4 fL [facility] MCH 31.6 27.1 - 33.3 pg [facility] MCHC 31.6(L) 32.3 - 35.7 g/dL [facility] RDW CV 17.0(H) 11.1 - 14.9 % [facility] RDW SD 62.4(H) 35.7 - 48.1 fL [facility] NRBC abs 0.00 0.00 - 0.01 K/cumm [facility] Blood 02/03/2025 9:28 PM CDT 02/03/2025 10:18 PM CDT Prabha Lagunas NP LAB BLOOD ORDERABLES Final Result Performing Organization Address City/[facility]/ZIP Co de Phone Number [facility] [place] [address] * Phosphorus (02/03/2025 9:28 PM CDT) [facility] Phosphorus, pl 4.5 2.3 - 4.5 mg/dL Blood 02/03/2025 9:28 PM CDT 02/03/2025 10:18 PM CDT Holly Mix MEDIA ANALYST LAB BLOOD ORDERABLES Final Result Performing Organization Address [facility] Co de Phone Number [facility] Department [place] [address] * Magnesium (02/03/2025 9:28 PM CDT) [facility] Magnesium 1.9 1.4 - 2.5 mg/dL Blood 02/03/2025 9:28 PM CDT 02/03/2025 10:18 PM CDT Holly Mix MEDIA ANALYST LAB BLOOD ORDERABLES Final Result Performing Organization Address [facility] de Phone Number [facility] Department [place] [address] * (ABNORMAL) Basic metabolic panel (02/03/2025 9:28 PM CDT) [facility] Sodium 133(L) 135 - 145 mmol/L Potassium, pl 4.4 3.3 - 4.9 mmol/L [facility] Chloride 94(L) 97 - 110 mmol/L [facility] CO2 27 22 - 32 mmol/L [facility] Anion gap 12 2 - 15 mmol/L [facility] BUN 111(H) 6 - 25 mg/dL [facility] Creatinine 2.82(H) 0.60 - 1.10 mg/dL [facility] Glucose 185 70 - 199 mg/dL [facility] Comment: Interpretive Data Fasting glucose >/= 126 mg/dl is diagnostic for diabetes. Fasting is defined as no caloric intake for at least 8 hours. Fasting glucose between 100 mg/dl to 125 mg/dl is diagnostic of prediabetes. In a patient with classic symptoms of hyperglycemia or hyperglycemic crisis, a random glucose >/= 200 mg/dl is diagnostic for diabetes. In the absence of unequivocal hyperglycemia, results should be confirmed by repeat testing. The classification and Diagnosis of Diabetes Diabetes Care 202; 46: S19-S40. Current interpretive data was last revised 2022. Calcium 8.9 8.5 - 10.3 mg/dL [facility] Blood 02/03/2025 9:28 PM CDT 02/03/2025 10:18 PM CDT us Prabha Lagunas NP LAB BLOOD ORDERABLES Final Result [facility] Department [place] [address] * XR Chest PA Lateral 2 Views (02/03/2025 10:32 AM CDT) Anatomical Region Laterality Modality Body, Chest N/A Computed Radiogr aphy 02/03/2025 11:3 4 AM CDT Impressions 02/03/2025 1:10 PM CDT The current study is compared with the prior radiograph dated 01/28/2025. Changes of median sternotomy. Left subclavian approach pacemaker defibrillator is present with leads overlying the right ventricle. Coronary artery stents. Mitral clip device. Surgical blas overlie the mid right abdomen. Mild perihilar atelectasis. Tiny right greater than left pleural effusions. No pneumothorax. The cardiomediastinal silhouette is stable. Multiple vascular calcifications. Dictated by: Ny Martinez MD The radiology attending physician has personally reviewed this study, and had reviewed and/or edited this written report and agrees with it. Electronically signed by: Socrates Pelaez M.D. Narrative 02/03/2025 1:10 PM CDT EXAMINATION: 2 view chest radiograph Procedure Note Socrates Pelaez MD - 02/03/2025 EXAMINATION: 2 view chest radiograph IMPRESSION: The current study is compared with the prior radiograph dated 01/28/2025. Changes of median sternotomy. Left subclavian approach pacemaker defibrillator is present with leads overlying the right ventricle. Coronary artery stents. Mitral clip device. Surgical blas overlie the mid right abdomen. Mild perihilar atelectasis. Tiny right greater than left pleural effusions. No pneumothorax. The cardiomediastinal silhouette is stable. Multiple vascular calcifications. Dictated by: Ny Martinez MD The radiology attending physician has personally reviewed this study, and had reviewed and/or edited this written report and agrees with it. Electronically signed by: Socrates Pelaez M.D. us Prabha aLgunas MEDIA ANALYST IMG XR PROCEDURES Final Res ult * Tacrolimus level trough (02/03/2025 4:45 AM CDT) Tacrolimus trough 3.6 ng/mL Comment: Interpretive Data Testing performed by liquid chromatography-tandem mass spectrometry. Therapeutic concentrations vary depending on type of transplanted organ and time elapsed since transplant. Typical trough concentrations range from 5-15 ng/mL. This test was developed and its performance characteristics determined by the [facility] consistent with CLIA requirements. This test has not been cleared or approved by the US Food and Drug administration. Current interpretive data last reviewed 2020. Blood 02/03/2025 4:45 AM CDT 02/03/2025 5:37 AM CDT Narrative [facility] - 02/03/2025 8:52 AM CDT Please check before administering morning tacrolimus dose us Gisselle Sheffield MD LAB BLOOD ORDERABLES Final Re sult [facility] Department [place] [address] * (ABNORMAL) Sodium, whole blood (02/02/2025 9:22 PM CDT) Pathologist [facility] Sodium, Whole Blood 132(L) 135 - 145 mmol/L Blood 02/02/2025 9:22 PM CDT 02/02/2025 9:39 PM CDT Holly Mix MEDIA ANALYST LAB BLOOD ORDERABLES Final Result [facility] [place] [address] * Potassium, whole blood (02/02/2025 9:22 PM CDT) Potassium, bld 4.5 3.3 - 4.9 mmol/L Blood 02/02/2025 9:22 PM CDT 02/02/2025 9:39 PM CDT Holly Mix MEDIA ANALYST LAB BLOOD ORDERABLES Final Result Performing Organization Address [facility] Co de Phone Number [facility] [place] [address] * (ABNORMAL) eGFR (02/02/2025 9:22 PM CDT) eGFR 17(L) >=60 mL/min/1. 73 m2 Comment: Interpretive Data Reference Interval Normal >/= 90 mL/min/1.73m2 Mildly decreased* 60 - 89 mL/min/1.73m2 Mildly to moderately decreased 45 - 59 mL/min/1.73m2 Moderately to severely decreased 30 - 44 mL/min/1.73m2 Severely decreased 15 - 29 mL/min/1.73m2 Kidney Failure < 15 mL/min/1.73m2 *Relative to young adult level Estimated glomerular filtration rate is determined by the 2020 CKD-EPI equation recommended by the National Kidney Foundation (A Unifying Approach to GFR Estimation: Recommendations of the NKF-ASK Task Force on Reassessing the Inclusion of Race in Diagnosing Kidney Disease, JASN 2020). The CKD-EPI equation should not be used for patients with unstable renal function and has not been validated in children and those over 70. Current interpretive data was last reviewed 2021. Blood 02/02/2025 9:22 PM CDT 02/02/2025 9:44 PM CDT Prabha Lagunas MEDIA ANALYST LAB BLOOD ORDERABLES Final Result [facility] Department [place] [address] * (ABNORMAL) CBC without differential (02/02/2025 9:22 PM CDT) WBC 12.5(H) 3.8 - 9.9 K/cumm Hgb 7.8(L) 11.9 - 15.5 g/dL [facility] Hct 24.3(L) 35.6 - 45.5 % [facility] Plt 134(L) 150 - 400 K/cumm [facility] MPV 9.7 9.1 - 12.3 fL [facility] RBC 2.47(L) 3.90 - 5.20 M/cumm [facility] MCV 98.4(H) 81.3 - 96.4 fL [facility] MCH 31.6 27.1 - 33.3 pg [facility] MCHC 32.1(L) 32.3 - 35.7 g/dL [facility] RDW CV 17.1(H) 11.1 - 14.9 % [facility] RDW SD 61.7(H) 35.7 - 48.1 fL [facility] NRBC abs 0.00 0.00 - 0.01 K/cumm [facility] Blood 02/02/2025 9:22 PM CDT 02/02/2025 9:45 PM CDT us Prabha Lagunas MEDIA ANALYST LAB BLOOD ORDERABLES Final Result [facility] [place] [address] * Phosphorus (02/02/2025 9:22 PM CDT) Phosphorus, pl 4.2 2.3 - 4.5 mg/dL Blood 02/02/2025 9:22 PM CDT 02/02/2025 9:44 PM CDT us Holly Mix MEDIA ANALYST LAB BLOOD ORDERABLES Final Result Performing Organization Address City/[facility] Co de Phone Number [facility] [place] [address] * Magnesium (02/02/2025 9:22 PM CDT) [facility] Magnesium 2.0 1.4 - 2.5 mg/dL Blood 02/02/2025 9:22 PM CDT 02/02/2025 9:44 PM CDT Holly Mix MEDIA ANALYST LAB BLOOD ORDERABLES Final Result Performing Organization Address [facility] de Phone Number [facility] [place] [address] * (ABNORMAL) Basic metabolic panel (02/02/2025 9:22 PM CDT) [facility] Sodium 132(L) 135 - 145 mmol/L Potassium, pl 5.3(H) 3.3 - 4.9 mmol/L [facility] Comment:Hemolyzed; Potassium value may be falsely elevated by as much as 0.6-1.0 mmol/L. Suggest redraw and reanalysis. Chloride 91(L) 97 - 110 mmol/L [facility] CO2 26 22 - 32 mmol/L [facility] Anion gap 15 2 - 15 mmol/L [facility] BUN 109(H) 6 - 25 mg/dL [facility] Creatinine 2.83(H) 0.60 - 1.10 mg/dL [facility] Glucose 138 70 - 199 mg/dL [facility] Comment: Interpretive Data Fasting glucose >/= 126 mg/dl is diagnostic for diabetes. Fasting is defined as no caloric intake for at least 8 hours. Fasting glucose between 100 mg/dl to 125 mg/dl is diagnostic of prediabetes. In a patient with classic symptoms of hyperglycemia or hyperglycemic crisis, a random glucose >/= 200 mg/dl is diagnostic for diabetes. In the absence of unequivocal hyperglycemia, results should be confirmed by repeat testing. The classification and Diagnosis of Diabetes Diabetes Care 2021; 46: S19-S40. Current interpretive data was last revised 2022. Calcium 9.4 8.5 - 10.3 mg/dL [facility] Blood 02/02/2025 9:22 PM CDT 02/02/2025 9:44 PM CDT Prabha Lagunas MEDIA ANALYST LAB BLOOD ORDERABLES Final Result [facility] [address] * Potassium, whole blood (02/02/2025 8:39 AM CDT) Pathologist [facility] Potassium, bld 4.6 3.3 - 4.9 mmol/L Blood 02/02/2025 8:39 AM CDT 02/02/2025 9:17 AM CDT Holly Mix MEDIA ANALYST LAB BLOOD ORDERABLES Final Result Performing Organization Address City/[facility] Co de Phone Number [facility] Department [place] [address] * (ABNORMAL) Sodium, whole blood (02/02/2025 3:11 AM CDT) Sodium, Whole Blood 134(L) 135 - 145 mmol/L Blood 02/02/2025 3:11 AM CDT 02/02/2025 4:25 AM CDT Holly Mix MEDIA ANALYST LAB BLOOD ORDERABLES Final Result Performing Organization Address City/[facility] Co de Phone Number [facility] [place] [address] * Potassium, whole blood (02/02/2025 3:11 AM CDT) Potassium, bld 4.8 3.3 - 4.9 mmol/L Blood 02/02/2025 3:11 AM CDT 02/02/2025 4:25 AM CDT Holly Mix MEDIA ANALYST LAB BLOOD ORDERABLES Final Result Performing Organization Address [facility] Co de Phone Number [facility] [place] [address] * Tacrolimus level trough (02/02/2025 3:11 AM CDT) [facility] Tacrolimus trough 4.4 ng/mL Comment: Interpretive Data Testing performed by liquid chromatography-tandem mass spectrometry. Therapeutic concentrations vary depending on type of transplanted organ and time elapsed since transplant. Typical trough concentrations range from 5-15 ng/mL. This test was developed and its performance characteristics determined by the [facility] consistent with CLIA requirements. This test has not been cleared or approved by the Food and Drug administration. Current interpretive data last reviewed 2020. Blood 02/02/2025 3:11 AM CDT 02/02/2025 4:22 AM CDT Narrative [facility] - 02/02/2025 7:06 AM CDT Please check before administering morning tacrolimus dose Gisselle Sheffield MD LAB BLOOD ORDERABLES Final Re sult Performing Organization Address [facility] Co de Phone Number [facility] [address] * (ABNORMAL) CBC without differential (02/02/2025 3:11 AM CDT) [facility] WBC 9.3 3.8 - 9.9 K/cumm Hgb 7.0(L) 11.9 - 15.5 g/dL [facility] Hct 21.8(L) 35.6 - 45.5 % [facility] Plt 114(L) 150 - 400 K/cumm [facility] MPV 9.7 9.1 - 12.3 fL [facility] RBC 2.21(L) 3.90 - 5.20 M/cumm [facility] MCV 98.6(H) 81.3 - 96.4 fL [facility] MCH 31.7 27.1 - 33.3 pg [facility] MCHC 32.1(L) 32.3 - 35.7 g/dL [facility] RDW CV 17.2(H) 11.1 - 14.9 % [facility] RDW SD 62.4(H) 35.7 - 48.1 fL [facility] NRBC abs 0.00 0.00 - 0.01 K/cumm [facility] Blood 02/02/2025 3:11 AM CDT 02/02/2025 4:22 AM CDT Prabha Lagunas MEDIA ANALYST LAB BLOOD ORDERABLES Final Result Performing Organization Address [facility] Co de Phone Number [facility] [place] [address] * Type and screen (02/02/2025 3:11 AM CDT) Pathologist [facility] ABO Rh B Positive Demetria, indirect Negative [facility] Blood 02/02/2025 3:11 AM CDT 02/02/2025 4:29 AM CDT Narrative [facility] - 02/02/2025 5:25 AM CDT Has the patient had Daratumumab or Isatuximab in the past 6 months?->Unknown us Holly Mix MEDIA ANALYST LAB BLOOD BANK TEST ORDERA BLES Final Result Performing Organization Address City/[facility]/ZIP Co de Phone Number [facility] [place] [address] * (ABNORMAL) eGFR (02/01/2025 8:00 PM CDT) eGFR 18(L) >=60 mL/min/1. 73 m2 Comment: Interpretive Data Reference Interval Normal >/= 90 mL/min/1.73m2 Mildly decreased* 60 - 89 mL/min/1.73m2 Mildly to moderately decreased 45 - 59 mL/min/1.73m2 Moderately to severely decreased 30 - 44 mL/min/1.73m2 Severely decreased 15 - 29 mL/min/1.73m2 Kidney Failure < 15 mL/min/1.73m2 *Relative to young adult level Estimated glomerular filtration rate is determined by the 2020 CKD-EPI equation recommended by the National Kidney Foundation (A Unifying Approach to GFR Estimation: Recommendations of the NKF-ASK Task Force on Reassessing the Inclusion of Race in Diagnosing Kidney Disease, JASN 2020). The CKD-EPI equation should not be used for patients with unstable renal function and has not been validated in children and those over 70. Current interpretive data was last reviewed 2021. Blood 02/01/2025 8:00 PM CDT 02/02/2025 4:28 AM CDT us Prabha Lagunas MEDIA ANALYST LAB BLOOD ORDERABLES Final [facility] [place] [address] * Phosphorus (02/01/2025 8:00 PM CDT) Phosphorus, pl 4.1 2.3 - 4.5 mg/dL Blood 02/01/2025 8:00 PM CDT 02/02/2025 4:28 AM CDT us Holly Mix MEDIA ANALYST LAB BLOOD ORDERABLES Final Result [facility] [place] [address] * Magnesium (02/01/2025 8:00 PM CDT) Magnesium 2.0 1.4 - 2.5 mg/dL Blood 02/01/2025 8:00 PM CDT 02/02/2025 4:28 AM CDT us Holly Mix MEDIA ANALYST LAB BLOOD ORDERABLES Final Result [facility] [place] [address] * (ABNORMAL) Basic metabolic panel (02/01/2025 8:00 PM CDT) [facility] Sodium 136 135 - 145 mmol/L Potassium, pl 5.1(H) 3.3 - 4.9 mmol/L [facility] Chloride 98 97 - 110 mmol/L [facility] CO2 29 22 - 32 mmol/L [facility] Anion gap 9 2 - 15 mmol/L [facility] BUN 112(H) 6 - 25 mg/dL [facility] Creatinine 2.68(H) 0.60 - 1.10 mg/dL [facility] Glucose 84 70 - 199 mg/dL [facility] Comment: Interpretive Data Fasting glucose >/= 126 mg/dl is diagnostic for diabetes. Fasting is defined as no caloric intake for at least 8 hours. Fasting glucose between 100 mg/dl to 125 mg/dl is diagnostic of prediabetes. In a patient with classic symptoms of hyperglycemia or hyperglycemic crisis, a random glucose >/= 200 mg/dl is diagnostic for diabetes. In the absence of unequivocal hyperglycemia, results should be confirmed by repeat testing. The classification and Diagnosis of Diabetes Diabetes Care 2021; 46: S19-S40. Current interpretive data was last revised 2022. Calcium 8.8 8.5 - 10.3 mg/dL [facility] Blood 02/01/2025 8:00 PM CDT 02/02/2025 4:28 AM CDT us Prabha Lagunas MEDIA ANALYST LAB BLOOD ORDERABLES Final Result [facility] [place] [address] * Potassium, whole blood (02/01/2025 10:08 AM CDT) Potassium, bld 4.4 3.3 - 4.9 mmol/L Blood 02/01/2025 10:0 8 AM CDT 02/01/2025 10:44 AM CDT Holly Mix MEDIA ANALYST LAB BLOOD ORDERABLES Final Result Performing Organization Address [facility] de Phone Number [facility] [place] [address] * Tacrolimus level trough (02/01/2025 5:13 AM CDT) [facility] Tacrolimus trough 3.0 ng/mL Comment: Interpretive Data Testing performed by liquid chromatography-tandem mass spectrometry. Therapeutic concentrations vary depending on type of transplanted organ and time elapsed since transplant. Typical trough concentrations range from 5-15 ng/mL. This test was developed and its performance characteristics determined by the [facility] consistent with CLIA requirements. This test has not been cleared or approved by the US Food and Drug administration. Current interpretive data last reviewed 2020. Blood 02/01/2025 5:13 AM CDT 02/01/2025 6:34 AM CDT Narrative [facility] - 02/01/2025 1:20 PM CDT Please check before administering morning tacrolimus dose Gisselle Sheffield MD LAB BLOOD ORDERABLES Final Re sult Performing Organization Address [facility] de Phone Number [facility] [place] [address] * (ABNORMAL) Sodium, whole blood (01/31/2025 9:15 PM CDT) Pathologist [facility] Sodium, Whole Blood 131(L) 135 - 145 mmol/L Blood 01/31/2025 9:15 PM CDT 01/31/2025 9:49 PM CDT Holly Mix MEDIA ANALYST LAB BLOOD ORDERABLES Final Result Performing Organization Address City/[facility]/ZIP Co de Phone Number ABEBE HICKS [facility] Department [place] [address] * Potassium, whole blood (01/31/2025 9:15 PM CDT) Potassium, bld 4.8 3.3 - 4.9 mmol/L Blood 01/31/2025 9:15 PM CDT 01/31/2025 9:49 PM CDT us Holly Mix MEDIA ANALYST LAB BLOOD ORDERABLES Final Result Performing Organization Address [facility] de Phone Number ABEBE [facility] [place] [address] * (ABNORMAL) eGFR (01/31/2025 9:15 PM CDT) eGFR 17(L) >=60 mL/min/1. 73 m2 Comment: Interpretive Data Reference Interval Normal >/= 90 mL/min/1.73m2 Mildly decreased* 60 - 89 mL/min/1.73m2 Mildly to moderately decreased 45 - 59 mL/min/1.73m2 Moderately to severely decreased 30 - 44 mL/min/1.73m2 Severely decreased 15 - 29 mL/min/1.73m2 Kidney Failure < 15 mL/min/1.73m2 *Relative to young adult level Estimated glomerular filtration rate is determined by the 2020 CKD-EPI equation recommended by the National Kidney Foundation (A Unifying Approach to GFR Estimation: Recommendations of the NKF-ASK Task Force on Reassessing the Inclusion of Race in Diagnosing Kidney Disease, JASN 2020). The CKD-EPI equation should not be used for patients with unstable renal function and has not been validated in children and those over 70. Current interpretive data was last reviewed 2021. Blood 01/31/2025 9:15 PM CDT 01/31/2025 9:53 PM CDT us Prabha Lagunas MEDIA ANALYST LAB BLOOD ORDERABLES Final Result Performing Organization Address City/[facility]/ZIP Co de Phone Number [facility] [place] [address] * (ABNORMAL) CBC without differential (01/31/2025 9:15 PM CDT) Pathologist [facility] WBC 10.4(H) 3.8 - 9.9 K/cumm Hgb 7.3(L) 11.9 - 15.5 g/dL [facility] Hct 23.2(L) 35.6 - 45.5 % [facility] Plt 117(L) 150 - 400 K/cumm [facility] MPV 9.4 9.1 - 12.3 fL [facility] RBC 2.33(L) 3.90 - 5.20 M/cumm [facility] MCV 99.6(H) 81.3 - 96.4 fL [facility] MCH 31.3 27.1 - 33.3 pg [facility] MCHC 31.5(L) 32.3 - 35.7 g/dL [facility] RDW CV 17.0(H) 11.1 - 14.9 % [facility] RDW SD 61.7(H) 35.7 - 48.1 fL [facility] NRBC abs 0.00 0.00 - 0.01 K/cumm [facility] Blood 01/31/2025 9:15 PM CDT 01/31/2025 9:53 PM CDT Prabha Lagunas NP LAB BLOOD ORDERABLES Final Result [facility] [place] [address] * Phosphorus (01/31/2025 9:15 PM CDT) Pathologist [facility] Phosphorus, pl 3.9 2.3 - 4.5 mg/dL Blood 01/31/2025 9:15 PM CDT 01/31/2025 9:53 PM CDT Holly Mix MEDIA ANALYST LAB BLOOD ORDERABLES Final Result Performing Organization Address City/[facility]/ZIP Co de Phone Number [facility] [place] [address] * Magnesium (01/31/2025 9:15 PM CDT) [facility] Magnesium 2.1 1.4 - 2.5 mg/dL Blood 01/31/2025 9:15 PM CDT 01/31/2025 9:53 PM CDT Holly Mix MEDIA ANALYST LAB BLOOD ORDERABLES Final Result Performing Organization Address [facility] de Phone Number [facility] [place] [address] * (ABNORMAL) Basic metabolic panel (01/31/2025 9:15 PM CDT) [facility] Sodium 132(L) 135 - 145 mmol/L Potassium, pl 5.0(H) 3.3 - 4.9 mmol/L [facility] Chloride 94(L) 97 - 110 mmol/L [facility] CO2 27 22 - 32 mmol/L [facility] Anion gap 11 2 - 15 mmol/L [facility] BUN 116(H) 6 - 25 mg/dL [facility] Creatinine 2.79(H) 0.60 - 1.10 mg/dL [facility] Glucose 168 70 - 199 mg/dL [facility] Comment: Interpretive Data Fasting glucose >/= 126 mg/dl is diagnostic for diabetes. Fasting is defined as no caloric intake for at least 8 hours. Fasting glucose between 100 mg/dl to 125 mg/dl is diagnostic of prediabetes. In a patient with classic symptoms of hyperglycemia or hyperglycemic crisis, a random glucose >/= 200 mg/dl is diagnostic for diabetes. In the absence of unequivocal hyperglycemia, results should be confirmed by repeat testing. The classification and Diagnosis of Diabetes Diabetes Care 2021; 46: S19-S40. Current interpretive data was last revised 2022. Calcium 8.7 8.5 - 10.3 mg/dL [facility] Blood 01/31/2025 9:15 PM CDT 01/31/2025 9:53 PM CDT Prabha Lagunas MEDIA ANALYST LAB BLOOD ORDERABLES Final Result Performing Organization Address City/[facility] Co de Phone Number [facility] [place] [address] * Potassium, whole blood (01/31/2025 11:15 AM CDT) Potassium, bld 4.4 3.3 - 4.9 mmol/L Blood 01/31/2025 11:1 5 AM CDT 01/31/2025 12:17 PM CDT Holly Mix MEDIA ANALYST LAB BLOOD ORDERABLES Final Result Performing Organization Address [facility] de Phone Number [facility] [place] [address] * US Renal Transplant W Dopplers (01/31/2025 8:43 AM CDT) Anatomical Region Laterality Modality Kidney N/A Ultrasound 01/31/2025 9:10 AM CDT Impressions 01/31/2025 10:29 AM CDT 1. Upper limits of normal transplant resistive indices, unchanged from 01/22/2025. No evidence of renal artery stenosis. 2. Normal transplant kidney morphology without hydronephrosis. Dictated by: Jan Hyman M.D. The radiology attending physician has personally reviewed this study, and had reviewed and/or edited this written report and agrees with it. Electronically signed by: Andre Cornejo M.D. Narrative 01/31/2025 10:29 AM CDT EXAMINATION: RENAL TRANSPLANT ULTRASOUND WITH DOPPLER HISTORY: 74-year-old woman with history of orthotopic renal transplantation in 2011. 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 COMPARISON: Renal transplant sonogram dated 01/11/1925 FINDINGS: The right iliac fossa transplant kidney measures 9.9 cm in length, unchanged. Echogenicity is normal. There is no hydronephrosis. There are no renal calculi visualized. No perinephric fluid collection is seen. Bladder: The urinary bladder is normal Color Doppler and spectral analysis were used to evaluate the renal vasculature. Resistive indices in the transplant segmental arteries are estimated at 0.78, upper limits of normal and unchanged from 01/22/2025. No focal flow abnormalities were seen in the transplant renal artery on color Doppler. The peak systolic velocities at the origin, mid aspect, and hilum of the transplant renal artery are 110 cm/sec, 94 cm/sec, and 78 cm/sec, respectively. The proximal external iliac artery peak systolic velocity is 72 cm/sec. The visualized portions of the transplant renal vein are patent. There is no thrombosis. Procedure Note Andre Cornejo MD - 01/31/2025 EXAMINATION: RENAL TRANSPLANT ULTRASOUND WITH DOPPLER HISTORY: 74-year-old woman with history of orthotopic renal transplantation in 2011. 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 COMPARISON: Renal transplant sonogram dated 01/11/1925 FINDINGS: The right iliac fossa transplant kidney measures 9.9 cm in length, unchanged. Echogenicity is normal. There is no hydronephrosis. There are no renal calculi visualized. No perinephric fluid collection is seen. Bladder: The urinary bladder is normal Color Doppler and spectral analysis were used to evaluate the renal vasculature. Resistive indices in the transplant segmental arteries are estimated at 0.78, upper limits of normal and unchanged from 01/22/2025. No focal flow abnormalities were seen in the transplant renal artery on color Doppler. The peak systolic velocities at the origin, mid aspect, and hilum of the transplant renal artery are 110 cm/sec, 94 cm/sec, and 78 cm/sec, respectively. The proximal external iliac artery peak systolic velocity is 72 cm/sec. The visualized portions of the transplant renal vein are patent. There is no thrombosis. IMPRESSION: 1. Upper limits of normal transplant resistive indices, unchanged from 01/22/2025. No evidence of renal artery stenosis. 2. Normal transplant kidney morphology without hydronephrosis. Dictated by: Jan Hyman M.D. The radiology attending physician has personally reviewed this study, and had reviewed and/or edited this written report and agrees with it. Electronically signed by: Andre Cornejo M.D. Naa Lerma NP [facility] US PROCEDURES Final Result * Tacrolimus level trough (01/31/2025 4:21 AM CDT) Tacrolimus trough 3.2 ng/mL Comment: Interpretive Data Testing performed by liquid chromatography-tandem mass spectrometry. Therapeutic concentrations vary depending on type of transplanted organ and time elapsed since transplant. Typical trough concentrations range from 5-15 ng/mL. This test was developed and its performance characteristics determined by the [facility] consistent with CLIA requirements. This test has not been cleared or approved by the US Food and Drug administration. Current interpretive data last reviewed 2020. Blood 01/31/2025 4:21 AM CDT 01/31/2025 5:48 AM CDT Narrative [facility] - 01/31/2025 7:50 AM CDT Please check before administering morning tacrolimus dose Gisselle Sheffield MD LAB BLOOD ORDERABLES Final Re sult [facility] [place] [address] * (ABNORMAL) Sodium, whole blood (01/30/2025 8:34 PM CDT) Sodium, Whole Blood 130(L) 135 - 145 mmol/L Blood 01/30/2025 8:34 PM CDT 01/30/2025 9:03 PM CDT Holly Mix NP LAB BLOOD ORDERABLES Final Result [facility] [place] [address] * Potassium, whole blood (01/30/2025 8:34 PM CDT) Potassium, bld 4.7 3.3 - 4.9 mmol/L Blood 01/30/2025 8:34 PM CDT 01/30/2025 8:48 PM CDT us Holly Mix MEDIA ANALYST LAB BLOOD ORDERABLES Final Result Performing Organization Address [facility]/ZIP Co de Phone Number ABEBE [facility] [place] [address] * (ABNORMAL) eGFR (01/30/2025 8:34 PM CDT) eGFR 16(L) >=60 mL/min/1. 73 m2 Comment: Interpretive Data Reference Interval Normal >/= 90 mL/min/1.73m2 Mildly decreased* 60 - 89 mL/min/1.73m2 Mildly to moderately decreased 45 - 59 mL/min/1.73m2 Moderately to severely decreased 30 - 44 mL/min/1.73m2 Severely decreased 15 - 29 mL/min/1.73m2 Kidney Failure < 15 mL/min/1.73m2 *Relative to young adult level Estimated glomerular filtration rate is determined by the 2020 CKD-EPI equation recommended by the National Kidney Foundation (A Unifying Approach to GFR Estimation: Recommendations of the NKF-ASK Task Force on Reassessing the Inclusion of Race in Diagnosing Kidney Disease, JASN 2020). The CKD-EPI equation should not be used for patients with unstable renal function and has not been validated in children and those over 70. Current interpretive data was last reviewed 2021. Blood 01/30/2025 8:34 PM CDT 01/30/2025 8:50 PM CDT us Prabha Lagunas MEDIA ANALYST LAB BLOOD ORDERABLES Final Result Performing Organization Address City/[facility]/ZIP Co de Phone Number ABEBE [facility] Department [place] [address] * (ABNORMAL) CBC without differential (01/30/2025 8:34 PM CDT) WBC 11.3(H) 3.8 - 9.9 K/cumm Hgb 8.2(L) 11.9 - 15.5 g/dL [facility] Hct 25.5(L) 35.6 - 45.5 % [facility] Plt 154 150 - 400 K/cumm [facility] MPV 9.2 9.1 - 12.3 fL [facility] RBC 2.63(L) 3.90 - 5.20 M/cumm [facility] MCV 97.0(H) 81.3 - 96.4 fL [facility] MCH 31.2 27.1 - 33.3 pg [facility] MCHC 32.2(L) 32.3 - 35.7 g/dL [facility] RDW CV 17.1(H) 11.1 - 14.9 % [facility] RDW SD 60.1(H) 35.7 - 48.1 fL [facility] NRBC abs 0.00 0.00 - 0.01 K/cumm [facility] Blood 01/30/2025 8:34 PM CDT 01/30/2025 8:50 PM CDT us Prabha Lagunas MEDIA ANALYST LAB BLOOD ORDERABLES Final Result Performing Organization Address City/[facility]/ZIP Co de Phone Number [facility] [place] [address] * Phosphorus (01/30/2025 8:34 PM CDT) [facility] Phosphorus, pl 4.3 2.3 - 4.5 mg/dL Blood 01/30/2025 8:34 PM CDT 01/30/2025 8:50 PM CDT us Holly Mix MEDIA ANALYST LAB BLOOD ORDERABLES Final Result Performing Organization Address [facility]/ZIP Co de Phone Number [facility] [place] [address] * Magnesium (01/30/2025 8:34 PM CDT) Magnesium 2.4 1.4 - 2.5 mg/dL Blood 01/30/2025 8:34 PM CDT 01/30/2025 8:50 PM CDT us Holly Mix MEDIA ANALYST LAB BLOOD ORDERABLES Final Result [facility] [place] [address] * (ABNORMAL) Basic metabolic panel (01/30/2025 8:34 PM CDT) Sodium 133(L) 135 - 145 mmol/L Potassium, pl 4.9 3.3 - 4.9 mmol/L [facility] Chloride 94(L) 97 - 110 mmol/L [facility] CO2 27 22 - 32 mmol/L [facility] Anion gap 12 2 - 15 mmol/L [facility] BUN 115(H) 6 - 25 mg/dL [facility] Creatinine 3.00(H) 0.60 - 1.10 mg/dL [facility] Glucose 152 70 - 199 mg/dL [facility] Comment: Interpretive Data Fasting glucose >/= 126 mg/dl is diagnostic for diabetes. Fasting is defined as no caloric intake for at least 8 hours. Fasting glucose between 100 mg/dl to 125 mg/dl is diagnostic of prediabetes. In a patient with classic symptoms of hyperglycemia or hyperglycemic crisis, a random glucose >/= 200 mg/dl is diagnostic for diabetes. In the absence of unequivocal hyperglycemia, results should be confirmed by repeat testing. The classification and Diagnosis of Diabetes Diabetes Care 2021; 46: S19-S40. Current interpretive data was last revised 2022. Calcium 9.5 8.5 - 10.3 mg/dL [facility] Blood 01/30/2025 8:34 PM CDT 01/30/2025 8:50 PM CDT Prabha Lagunas MEDIA ANALYST LAB BLOOD ORDERABLES Final Result Performing Organization Address City/[facility]/ZIP Co de Phone Number [facility] [place] [address] * (ABNORMAL) Urinalysis reflex to microscopic and culture Urine, clean voided (01/30/2025 4:24 PM CDT) Color, ur Straw Yellow Clarity, ur Clear Clear [facility] Specific gravity, ur 1.012 1.003 - 1.030 [facility] pH, urine 6.0 [facility] Comment: Interpretive Data U rine pH is affected by diet, medications, systemic acid-base disturbances, and renal tubular function. pH may affect urinary stone formation. For example, urine pH below 6.0 may help reduce the tendency for calcium phosphate stones and pH greater than 6.0 may reduce the tendency for uric acid stone formation. Source: [facility] Current Interpretive Data was last revised on 2017 Protein, ur ql 1+(A) Negative [facility] Glucose, ur ql Negative Negative [facility] Ketones, ur Negative Negative [facility] Bilirubin, ur Negative Negative [facility] Blood, ur Negative Negative [facility] Urobilinogen, ur <2.0 <2.0 mg/dL [facility] Nitrite, ur Negative Negative [facility] Leukocyte esterase, ur 3+(A) Negative [facility] UA reflex comment Reflex to microscopic UA will be performed. [facility] Urine, clean voided 01/30/2025 4:24 PM CDT 01/30/2025 4:43 PM CDT Naa Lerma NP LAB MICROBIOLOGY - GENERAL ORDER FILI Final Result [facility] Department [place] [address] * (ABNORMAL) Urinalysis, microscopic only (01/30/2025 4:24 PM CDT) WBC, ur 11-20(A) 0 - 5 /HPF RBC, ur 0-2 0 - 2 /HPF [facility] Epithelial cells, squamous, ur 1-5 0 - 5 /HPF [facility] Bacteria, ur 1+(A) [facility] Mucous, ur Present(A) [facility] Culture Reflex Comment Reflex to urine culture will be performed. [facility] Urine, clean voided 01/30/2025 4:24 PM CDT 01/30/2025 4:43 PM CDT us Naa Lerma NP LAB URINE ORDERABLES Final Resul t Performing Organization Address [facility] Co de Phone Number [facility] [place] [address] * Urine culture Urine, clean voided (01/30/2025 4:24 PM CDT) Report Final Report: Less than 100,000 colonies/mL (clinically insignificant growth based on current clinical standards) Organism (CLINICALLY INSIGNIFICANT GROWTH [facility] Urine, clean voided 01/30/2025 4:24 PM CDT 01/30/2025 9:02 PM CDT Narrative [facility] - 02/01/2025 7:29 AM CDT Urine culture reflexed based upon urinalysis results. Testing performed by [facility] ([phone]) us Naa Lerma NP LAB MICROBIOLOGY - GENERAL ORDER FILI Final Result Performing Organization Address [facility] de Phone Number [facility] [place] [address] * Potassium, whole blood (01/30/2025 11:35 AM CDT) Potassium, bld 4.8 3.3 - 4.9 mmol/L Blood 01/30/2025 11:3 5 AM CDT 01/30/2025 11:42 AM CDT us Holly Mix NP LAB BLOOD ORDERABLES Final Result Performing Organization Address [facility] Co de Phone Number [facility] [place] [address] * US Liver W Complete Doppler (C) (01/30/2025 10:51 AM CDT) Anatomical Region Laterality Modality Abdomen N/A Ultrasound 01/30/2025 10:5 7 AM CDT Impressions 01/30/2025 10:59 AM CDT 1. Nodular liver surface contour, which can be seen in setting of fibrosis/cirrhosis. 2. No cain scale or Doppler evidence of hepatic congestion. 3. Right pleural effusion. Dictated by: Linda Li MD The radiology attending physician has personally reviewed this study, and had reviewed and/or edited this written report and agrees with it. Electronically signed by: Dany Figueroa M.D. Narrative 01/30/2025 10:59 AM CDT EXAMINATION: 1. LIMITED ABDOMINAL SONOGRAM 2. LIVER DOPPLER HISTORY: 74-year-old female with renal transplant in 2012. Evaluate for hepatic congestion. COMPARISON: CT 12/26/2024 FINDINGS: LIMITED ABDOMEN: Liver: The liver is normal in size. The echotexture is normal. The echogenicity is normal. There is surface nodularity. No focal solid lesions are visualized. There is extensive calcification of the intrahepatic and extra hepatic arteries are seen on recent CT. Gallbladder: The gallbladder is normal in size. There are no stones or sludge within the gallbladder. There is no gallbladder wall thickening. Bile Duct: There is no intrahepatic bile duct dilatation. The diameter of the common duct is 3 mm in the proximal segment and 6 mm in the mid segment and 4 mm in the distal segment. Right Kidney: The [place] right kidney is atrophied. Pancreas: The visualized portions of the pancreas demonstrate no focal lesions. Other Findings: There is no ascites. LIVER DOPPLER: Color Doppler and spectral analysis were used to evaluate the hepatic vasculature. Portal veins: The main portal vein as well as the right and left branches have hepatopetal (antegrade) flow. No thrombosis is visualized. Hepatic veins: The middle, right, and left hepatic veins are patent with antegrade flow. Portosplenic confluence: The portosplenic confluence is patent with appropriate directional flow. IVC: The inferior vena cava at the level of the liver is patent with appropriate directional flow. Hepatic artery: The visualized main hepatic artery is patent with antegrade flow. Other: There is a right pleural effusion. Procedure Note Dany Figueroa MD - 01/30/2025 EXAMINATION: 1. LIMITED ABDOMINAL SONOGRAM 2. LIVER DOPPLER HISTORY: 74-year-old female with renal transplant in 2012. Evaluate for hepatic congestion. COMPARISON: CT 12/26/2024 FINDINGS: LIMITED ABDOMEN: Liver: The liver is normal in size. The echotexture is normal. The echogenicity is normal. There is surface nodularity. No focal solid lesions are visualized. There is extensive calcification of the intrahepatic and extra hepatic arteries are seen on recent CT. Gallbladder: The gallbladder is normal in size. There are no stones or sludge within the gallbladder. There is no gallbladder wall thickening. Bile Duct: There is no intrahepatic bile duct dilatation. The diameter of the common duct is 3 mm in the proximal segment and 6 mm in the mid segment and 4 mm in the distal segment. Right Kidney: The [place] right kidney is atrophied. Pancreas: The visualized portions of the pancreas demonstrate no focal lesions. Other Findings: There is no ascites. LIVER DOPPLER: Color Doppler and spectral analysis were used to evaluate the hepatic vasculature. Portal veins: The main portal vein as well as the right and left branches have hepatopetal (antegrade) flow. No thrombosis is visualized. Hepatic veins: The middle, right, and left hepatic veins are patent with antegrade flow. Portosplenic confluence: The portosplenic confluence is patent with appropriate directional flow. IVC: The inferior vena cava at the level of the liver is patent with appropriate directional flow. Hepatic artery: The visualized main hepatic artery is patent with antegrade flow. Other: There is a right pleural effusion. IMPRESSION: 1. Nodular liver surface contour, which can be seen in setting of fibrosis/cirrhosis. 2. No cain scale or Doppler evidence of hepatic congestion. 3. Right pleural effusion. Dictated by: Linda Li MD The radiology attending physician has personally reviewed this study, and had reviewed and/or edited this written report and agrees with it. Electronically signed by: Dany Figueroa M.D. us Naa Lerma NP IMG US PROCEDURES Final Result * Tacrolimus level trough (01/30/2025 4:04 AM CDT) Tacrolimus trough 3.2 ng/mL Comment: Interpretive Data Testing performed by liquid chromatography-tandem mass spectrometry. Therapeutic concentrations vary depending on type of transplanted organ and time elapsed since transplant. Typical trough concentrations range from 5-15 ng/mL. This test was developed and its performance characteristics determined by the [facility] consistent with CLIA requirements. This test has not been cleared or approved by the US Food and Drug administration. Current interpretive data last reviewed 2020. Blood 01/30/2025 4:04 AM CDT 01/30/2025 4:49 AM CDT Narrative [facility] - 01/30/2025 8:07 AM CDT Please check before administering morning tacrolimus dose Gisselle Sheffield MD LAB BLOOD ORDERABLES Final Re sult Performing Organization Address City/[facility]/ZIP Co de Phone Number [facility] Department [place] [address] * POCT glucose (01/29/2025 10:13 PM CDT) Pathologist [facility] Glucose, POC 161 70 - 199 mg/dL Blood 01/29/2025 10:1 3 PM CDT 01/29/2025 10:13 PM CDT Shante Cunningham MD LAB POCT ORDERABLES - DEVICE Fin al Result [facility] Department [place] [address] * (ABNORMAL) Sodium, whole blood (01/29/2025 10:07 PM CDT) Sodium, Whole Blood 131(L) 135 - 145 mmol/L Blood 01/29/2025 10:0 7 PM CDT 01/29/2025 10:22 PM CDT Holly A. Mix MEDIA ANALYST LAB BLOOD ORDERABLES Final Result [facility] Department [place] [address] * Potassium, whole blood (01/29/2025 10:07 PM CDT) Potassium, bld 4.9 3.3 - 4.9 mmol/L Blood 01/29/2025 10:0 7 PM CDT 01/29/2025 10:22 PM CDT us Holly Mix MEDIA ANALYST LAB BLOOD ORDERABLES Final Result Performing Organization Address [facility] de Phone Number [facility] [place] [address] * (ABNORMAL) eGFR (01/29/2025 10:07 PM CDT) eGFR 15(L) >=60 mL/min/1. 73 m2 Comment: Interpretive Data Reference Interval Normal >/= 90 mL/min/1.73m2 Mildly decreased* 60 - 89 mL/min/1.73m2 Mildly to moderately decreased 45 - 59 mL/min/1.73m2 Moderately to severely decreased 30 - 44 mL/min/1.73m2 Severely decreased 15 - 29 mL/min/1.73m2 Kidney Failure < 15 mL/min/1.73m2 *Relative to young adult level Estimated glomerular filtration rate is determined by the 2020 CKD-EPI equation recommended by the National Kidney Foundation (A Unifying Approach to GFR Estimation: Recommendations of the NKF-ASK Task Force on Reassessing the Inclusion of Race in Diagnosing Kidney Disease, JASN 2020). The CKD-EPI equation should not be used for patients with unstable renal function and has not been validated in children and those over 70. Current interpretive data was last reviewed 2021. Blood 01/29/2025 10:0 7 PM CDT 01/29/2025 10:26 PM CDT us Prabha Lagunas MEDIA ANALYST LAB BLOOD ORDERABLES Final Result [facility] Department [place] [address] * (ABNORMAL) CBC without differential (01/29/2025 10:07 PM CDT) WBC 10.8(H) 3.8 - 9.9 K/cumm Hgb 7.7(L) 11.9 - 15.5 g/dL [facility] Hct 24.0(L) 35.6 - 45.5 % [facility] Plt 159 150 - 400 K/cumm [facility] MPV 8.8(L) 9.1 - 12.3 fL [facility] RBC 2.52(L) 3.90 - 5.20 M/cumm [facility] MCV 95.2 81.3 - 96.4 fL [facility] MCH 30.6 27.1 - 33.3 pg [facility] MCHC 32.1(L) 32.3 - 35.7 g/dL [facility] RDW CV 17.3(H) 11.1 - 14.9 % [facility] RDW SD 60.9(H) 35.7 - 48.1 fL [facility] NRBC abs 0.00 0.00 - 0.01 K/cumm [facility] Blood 01/29/2025 10:0 7 PM CDT 01/29/2025 10:26 PM CDT Prabha Lagunas MEDIA ANALYST LAB BLOOD ORDERABLES Final Result [facility] [place] [address] * Type and screen (01/29/2025 10:07 PM CDT) Demetria, indirect Negative ABO Rh B Positive [facility] Blood 01/29/2025 10:0 7 PM CDT 01/29/2025 10:53 PM CDT Narrative [facility] - 01/30/2025 12:10 AM CDT Has the patient had Daratumumab or Isatuximab in the past 6 months?->Unknown us Holly Mix MEDIA ANALYST LAB BLOOD BANK TEST ORDERA BLES Final Result Performing Organization Address [facility] Co de Phone Number [facility] [address] * Phosphorus (01/29/2025 10:07 PM CDT) [facility] Phosphorus, pl 4.3 2.3 - 4.5 mg/dL Blood 01/29/2025 10:0 7 PM CDT 01/29/2025 10:26 PM CDT us Holly iMx MEDIA ANALYST LAB BLOOD ORDERABLES Final Result Performing Organization Address [facility] Co de Phone Number [facility] Department [place] [address] * Magnesium (01/29/2025 10:07 PM CDT) [facility] Magnesium 2.4 1.4 - 2.5 mg/dL Blood 01/29/2025 10:0 7 PM CDT 01/29/2025 10:26 PM CDT us Holly Mix MEDIA ANALYST LAB BLOOD ORDERABLES Final Result Performing Organization Address [facility] [place] [address] * (ABNORMAL) Basic metabolic panel (01/29/2025 10:07 PM CDT) [facility] Sodium 131(L) 135 - 145 mmol/L Potassium, pl 5.2(H) 3.3 - 4.9 mmol/L [facility] Chloride 93(L) 97 - 110 mmol/L [facility] CO2 26 22 - 32 mmol/L [facility] Anion gap 12 2 - 15 mmol/L [facility] BUN 102(H) 6 - 25 mg/dL [facility] Creatinine 3.19(H) 0.60 - 1.10 mg/dL [facility] Glucose 151 70 - 199 mg/dL [facility] Comment: Interpretive Data Fasting glucose >/= 126 mg/dl is diagnostic for diabetes. Fasting is defined as no caloric intake for at least 8 hours. Fasting glucose between 100 mg/dl to 125 mg/dl is diagnostic of prediabetes. In a patient with classic symptoms of hyperglycemia or hyperglycemic crisis, a random glucose >/= 200 mg/dl is diagnostic for diabetes. In the absence of unequivocal hyperglycemia, results should be confirmed by repeat testing. The classification and Diagnosis of Diabetes Diabetes Care 2021; 46: S19-S40. Current interpretive data was last revised 2022. Calcium 9.0 8.5 - 10.3 mg/dL [facility] Blood 01/29/2025 10:0 7 PM CDT 01/29/2025 10:26 PM CDT us Prabha Lagunas NP LAB BLOOD ORDERABLES Final Result [facility] [place] [address] * POCT glucose (01/29/2025 5:03 PM CDT) Glucose, POC 172 70 - 199 mg/dL Blood 01/29/2025 5:03 PM CDT 01/29/2025 5:03 PM CDT us Shante Cunningham MD LAB POCT ORDERABLES - DEVICE Fin al Result [facility] [place] [address] * POCT glucose (01/29/2025 11:40 AM CDT) Glucose, POC 116 70 - 199 mg/dL Blood 01/29/2025 11:4 0 AM CDT 01/29/2025 11:40 AM CDT Shante Cunningham MD LAB POCT ORDERABLES - DEVICE Fin al Result Performing Organization Address [facility] de Phone Number [facility] [place] [address] * POCT glucose (01/29/2025 7:40 AM CDT) Glucose, POC 108 70 - 199 mg/dL Blood 01/29/2025 7:40 AM CDT 01/29/2025 7:40 AM CDT Shante Cunningham MD LAB POCT ORDERABLES - DEVICE Fin al Result Performing Organization Address [facility] de Phone Number [facility] [place] [address] * (ABNORMAL) Sodium, whole blood (01/29/2025 5:18 AM CDT) Pathologist [facility] Sodium, Whole Blood 127(L) 135 - 145 mmol/L Blood 01/29/2025 5:18 AM CDT 01/29/2025 5:31 AM CDT Holly Mix NP LAB BLOOD ORDERABLES Final Result Performing Organization Address [facility] de Phone Number [facility] [place] [address] * Tacrolimus level trough (01/29/2025 5:18 AM CDT) Pathologist [facility] Tacrolimus trough 3.3 ng/mL Comment: Interpretive Data Testing performed by liquid chromatography-tandem mass spectrometry. Therapeutic concentrations vary depending on type of transplanted organ and time elapsed since transplant. Typical trough concentrations range from 5-15 ng/mL. This test was developed and its performance characteristics determined by the [facility] consistent with CLIA requirements. This test has not been cleared or approved by the US Food and Drug administration. Current interpretive data last reviewed 2020. Blood 01/29/2025 5:18 AM CDT 01/29/2025 5:30 AM CDT Narrative [facility] - 01/29/2025 8:06 AM CDT Please check before administering morning tacrolimus dose Gisselle Sheffield MD LAB BLOOD ORDERABLES Final Re sult Performing Organization Address City/[facility] Co de Phone [facility] [place] [address] * (ABNORMAL) eGFR (01/28/2025 9:31 PM CDT) eGFR 16(L) >=60 mL/min/1. 73 m2 Comment: Interpretive Data Reference Interval Normal >/= 90 mL/min/1.73m2 Mildly decreased* 60 - 89 mL/min/1.73m2 Mildly to moderately decreased 45 - 59 mL/min/1.73m2 Moderately to severely decreased 30 - 44 mL/min/1.73m2 Severely decreased 15 - 29 mL/min/1.73m2 Kidney Failure < 15 mL/min/1.73m2 *Relative to young adult level Estimated glomerular filtration rate is determined by the 2020 CKD-EPI equation recommended by the National Kidney Foundation (A Unifying Approach to GFR Estimation: Recommendations of the NKF-ASK Task Force on Reassessing the Inclusion of Race in Diagnosing Kidney Disease, JASN 2020). The CKD-EPI equation should not be used for patients with unstable renal function and has not been validated in children and those over 70. Current interpretive data was last reviewed 2021. Blood 01/28/2025 9:31 PM CDT 01/28/2025 10:21 PM CDT us Prabha Lagunas NP LAB BLOOD ORDERABLES Final Result Performing Organization Address City/[facility]/ZIP Co de Phone Number [facility] [place] [address] * (ABNORMAL) CBC without differential (01/28/2025 9:31 PM CDT) Pathologist [facility] WBC 11.2(H) 3.8 - 9.9 K/cumm Hgb 7.5(L) 11.9 - 15.5 g/dL [facility] Hct 22.9(L) 35.6 - 45.5 % [facility] Plt 156 150 - 400 K/cumm [facility] MPV 9.1 9.1 - 12.3 fL [facility] RBC 2.40(L) 3.90 - 5.20 M/cumm [facility] MCV 95.4 81.3 - 96.4 fL [facility] MCH 31.3 27.1 - 33.3 pg [facility] MCHC 32.8 32.3 - 35.7 g/dL [facility] RDW CV 17.2(H) 11.1 - 14.9 % [facility] RDW SD 60.3(H) 35.7 - 48.1 fL [facility] NRBC abs 0.00 0.00 - 0.01 K/cumm [facility] Blood 01/28/2025 9:31 PM CDT 01/28/2025 10:22 PM CDT us Prabha Lagunas MEDIA ANALYST LAB BLOOD ORDERABLES Final Result [facility] [place] [address] * (ABNORMAL) Phosphorus (01/28/2025 9:31 PM CDT) Pathologist [facility] Phosphorus, pl 4.7(H) 2.3 - 4.5 mg/dL Blood 01/28/2025 9:31 PM CDT 01/28/2025 10:21 PM CDT us Holly Mix MEDIA ANALYST LAB BLOOD ORDERABLES Final Result [facility] [place] [address] * Magnesium (01/28/2025 9:31 PM CDT) Pathologist [facility] Magnesium 2.3 1.4 - 2.5 mg/dL Blood 01/28/2025 9:31 PM CDT 01/28/2025 10:21 PM CDT Holly Mix MEDIA ANALYST LAB BLOOD ORDERABLES Final Result [facility] Department [place] [address] * (ABNORMAL) Basic metabolic panel (01/28/2025 9:31 PM CDT) [facility] Sodium 126(L) 135 - 145 mmol/L Potassium, pl 5.3(H) 3.3 - 4.9 mmol/L [facility] Chloride 90(L) 97 - 110 mmol/L [facility] CO2 25 22 - 32 mmol/L [facility] Anion gap 11 2 - 15 mmol/L [facility] BUN 102(H) 6 - 25 mg/dL [facility] Creatinine 2.90(H) 0.60 - 1.10 mg/dL [facility] Glucose 179 70 - 199 mg/dL [facility] Comment: Interpretive Data Fasting glucose >/= 126 mg/dl is diagnostic for diabetes. Fasting is defined as no caloric intake for at least 8 hours. Fasting glucose between 100 mg/dl to 125 mg/dl is diagnostic of prediabetes. In a patient with classic symptoms of hyperglycemia or hyperglycemic crisis, a random glucose >/= 200 mg/dl is diagnostic for diabetes. In the absence of unequivocal hyperglycemia, results should be confirmed by repeat testing. The classification and Diagnosis of Diabetes Diabetes Care 202; 46: S19-S40. Current interpretive data was last revised 2022. Calcium 8.5 8.5 - 10.3 mg/dL [facility] Blood 01/28/2025 9:31 PM CDT 01/28/2025 10:21 PM CDT us Prabha Lagunas MEDIA ANALYST LAB BLOOD ORDERABLES Final Result Performing Organization Address [facility] Co de Phone Number [place] [address] * (ABNORMAL) POCT glucose (01/28/2025 8:42 PM CDT) Glucose, POC 200(H) 70 - 199 mg/dL Blood 01/28/2025 8:42 PM CDT 01/28/2025 8:42 PM CDT Shante Cunningham MD LAB POCT ORDERABLES - DEVICE Fin al Result Performing Organization Address [facility] Co de Phone Number [facility] [address] * POCT glucose (01/28/2025 5:00 PM CDT) Glucose, POC 174 70 - 199 mg/dL Blood 01/28/2025 5:00 PM CDT 01/28/2025 5:00 PM CDT Shante Cunningham MD LAB POCT ORDERABLES - DEVICE Fin al Result Performing Organization Address [facility] Co de Phone Number [facility] [place] [address] * US Vein Duplex Upper Extremity Left Limited, Unilateral (01/28/2025 1:07 PM CDT) Anatomical Region Laterality Modality Vascular Left Ultrasound 01/28/2025 12:3 5 PM CDT Narrative 01/28/2025 8:03 PM CDT [facility] - Department of Vascular Surgery, Vascular Laboratory [address] [place] [id number] Upper Extremity Venous Ultrasound Report Patient Name: NEGRITA LINCOLN C : 1950 (74y 2m) Study Date: 01/28/2025 12:35:03 PM Gender: F Tech: [facility] Location: [id number] Ref Provider: PRABHA LAGUNAS Quality: Adequate Order Provider: RPABHA LAGUNAS PROCEDURES: Vascular Report: Venous Duplex imaging was performed in the left upper extremity. The internal jugular, subclavian and axillary veins were evaluated for patency, spontaneity and phasicity with Doppler, compression and augmentation maneuvers. The brachial, basilic and cephalic veins were also evaluated with compression maneuvers. INDICATIONS: Localized edema. FINDINGS: Performing Senior Systems Administrator: Porsha Lr RDMS, T. Left: Venous Doppler signals in the left upper extremity are within normal limits for spontaneity and phasicity; normal response to compression maneuvers. No evidence of superficial vein thrombus in the left upper extremity. Comments: Contralateral subclavian vein is imaged for comparison and is patent. Unilateral (limited study) performed per M.D. order. CONCLUSIONS: 1. No evidence of acute deep vein thrombosis in the left upper extremity. 2. No evidence of superficial vein thrombus in the left upper extremity. 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 DISCLAIMER: The study images and the final report will be retained in the patient chart by the Vascular Laboratory for the legally required time period. This chart constitutes the legal record of any testing performed. ATTESTATION: I have reviewed and interpreted the pertinent images and measurements of this study. I attest to the conclusions in the final report that is provided above. Electronically Signed By: Bao Cuadra MD [facility] [phone] 01/28/2025 7:19:13 PM CDT Procedure Note Bao Cuadra MD - 01/28/2025 [facility] - Department of Vascular Surgery,Vascular Laboratory [address] [place] [address] Upper Extremity Venous Ultrasound Report Patient Name: NEGRITA LINCOLN C : 1950 (74y 2m) Study Date: 01/28/2025 12:35:03 PM Gender: F Tech: [facility] Location: [id number] Ref Provider: PRABHA LAGUNAS Quality: Adequate Order Provider: PRABHA LAGUNAS PROCEDURES: Vascular Report: Venous Duplex imaging was performed in the left upper extremity. Theinternal jugular, subclavian and axillary veins were evaluated for patency, spontaneity andphasicity with Doppler, compression and augmentation maneuvers. The brachial, basilic andcephalic veins were also evaluated with compression maneuvers. INDICATIONS: Localized edema. FINDINGS: Performing Senior Systems Administrator: Porsha Lr RDMS, RVT. Left: Venous Doppler signals in the left upper extremity are within normallimits for spontaneity and phasicity; normal response to compression maneuvers. Noevidence of superficial vein thrombus in the left upper extremity. Comments: Contralateral subclavian vein is imaged for comparison and is patent.Unilateral (limited study) performed per M.D. order. CONCLUSIONS: 1. No evidence of acute deep vein thrombosis in the left upperextremity. 2. No evidence of superficial vein thrombus in the left upper extremity. 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 DISCLAIMER: The study images and the final report will be retained in the patientchart by the Vascular Laboratory for the legally required time period. This chartconstitutes the legal record of any testing performed. ATTESTATION: I have reviewed and interpreted the pertinent images and measurements ofthis study. I attest to the conclusions in the final report that is provided above. Electronically Signed By: Bao Cuadra MD [facility] [phone] 01/28/2025 7:19:13 PM CDT us Prabha Lagunas MEDIA ANALYST IMG US PROCEDURES Final Res ult * (ABNORMAL) POCT glucose (01/28/2025 11:42 AM CDT) Glucose, POC 221(H) 70 - 199 mg/dL Blood 01/28/2025 11:4 2 AM CDT 01/28/2025 11:42 AM CDT us Shante Cunningham MD LAB POCT ORDERABLES - DEVICE Fin al Result [facility] [place] [address] * POCT glucose (01/28/2025 9:26 AM CDT) Glucose, POC 134 70 - 199 mg/dL Blood 01/28/2025 9:26 AM CDT 01/28/2025 9:26 AM CDT us Shante Cunningham MD LAB POCT ORDERABLES - DEVICE Fin al Result [facility] Department [place] [address] * XR Chest PA Lateral 2 Views (01/28/2025 9:16 AM CDT) Anatomical Region Laterality Modality Body, Chest N/A Computed Radiogr aphy 01/28/2025 11:4 1 AM CDT Impressions 01/28/2025 11:41 AM CDT Comparison is made to prior study of 01/27/2025 at 1145. In the interval, there has been improved aeration. On today's study, no pulmonary edema. Minimal atelectasis seen with tiny pleural effusions. No pneumothorax or consolidation. Patient is post median sternotomy. The heart size and mediastinal contour are unchanged. Pacemaker defibrillator is seen with the leads overlying the right ventricle. Note is made of mitral clips. Calcifications are seen within the coronary arteries with stents. Electronically signed by: Dakota Montero M.D. Narrative 01/28/2025 11:41 AM CDT EXAMINATION: 2 view chest radiograph Procedure Note Dakota Montero MD - 01/28/2025 EXAMINATION: 2 view chest radiograph IMPRESSION: Comparison is made to prior study of 01/27/2025 at 1145. In the interval, there has been improved aeration. On today's study, no pulmonary edema. Minimal atelectasis seen with tiny pleural effusions. No pneumothorax or consolidation. Patient is post median sternotomy. The heart size and mediastinal contour are unchanged. Pacemaker defibrillator is seen with the leads overlying the right ventricle. Note is made of mitral clips. Calcifications are seen within the coronary arteries with stents. Electronically signed by: Dakota Montero M.D. us Prabha A. Vasyl MEDIA ANALYST IMG XR PROCEDURES Final Res ult * TRANSTHORACIC ECHO (TTE) COMPLETE W DOPPLER/CF W CONTRAST (01/28/2025 8:50 AM CDT) Anatomical Region Laterality Modality Ultrasound 01/28/2025 7:25 AM CDT Narrative 01/28/2025 9:45 AM CDT [facility] [place] [address] Transthoracic Echocardiographic Report Patient Name: NEGRITA LINCOLN C : 1950 (74y 2m) Gender: F Study Date: 01/28/2025 07:25:05 AM Ht(Inch): 64 Wt(Lb): 166.89 BSA: 1.85 Senior Systems Administrator: Janet Khanna RDCS Location: [id number] Order Provider: PRABHA LAGUNAS Heart Rate: 69 BMI: 28.64 BP: 151 / 51 Ref Provider: PRABHA LAGUNAS PROCEDURES: Echocardiographic Report: Transthoracic complete echo with strain imaging and contrast, 2D, spectral and tissue Doppler, color flow Doppler, M-mode. Contrast: Contrast Enhancement was Employed: Due to suboptimal image quality with inadequate visualization of at least 2 of 16 LV wall segments in any view after initial imaging. Perflutren contrast was administered using the volume necessary to obtain adequate images. 1.1 ml Optison Administered, (1.9 ml wasted). INDICATIONS: S/P Mitraclip (XTW x 1) - CONCLUSIONS: 1. Moderately dilated LV. Eccentric LV hypertrophy. LVEF 53%. Indeterminate diastolic function. 2. Right ventricular dilatation. Normal right ventricular systolic function. Wire noted in the right heart. 3. S/p M-ISSA: ModerateMR. The mean transmitral gradient is: 5 mmHg at a heart rate of 72 bpm. 4. Mildly thickened aortic valve leaflets. The mean transaortic gradient is 8 mmHg. 5. Severe tricuspid regurgitation. Estimated PASP 32mmHg+RA pressure. 6. Normal pericardium without pericardial effusion. 7. Normal aortic root size when indexed. 8. IVC is dilated. ATTESTATION: I have personally reviewed and interpreted this study without fellow or resident. DISCLAIMER: The study images and the final report will be retained in the patient chart by the Echo Laboratory for the legally required time period. This chart constitutes the legal record of any testing performed. FINDINGS: Left Ventricle: Moderately dilated left ventricle based on 2D measurements. Eccentric LV hypertrophy. Mildly depressed left ventricular systolic function. The Ejection Fraction (Gonzalez's) is measured at 53 %. Left ventricular diastolic function is indeterminate due to mitral valve repair or replacement. The average global longitudinal strain is abnormal. The LV global strain is: -15.6 %. Right Ventricle: Right ventricular dilatation. Normal right ventricular systolic function. Wire noted in the right heart. Left Atrium: Severely dilated left atrium. Right Atrium: Right atrial dilatation. Mitral Valve: Moderate mitral valve regurgitation. The mean transmitral gradient is: 5 mmHg. at a heart rate of 72 beats per minute. Specific MV Structure Abnormalities: S/p MV ISSA. Aortic Valve: Normal trileaflet aortic valve. Mildly thickened aortic valve leaflets. No aortic regurgitation. No aortic valve stenosis. The mean transaortic gradient is 8 mmHg. The aortic valve area by the continuity equation (using VTI) is 2.2 cm2. Aortic valve dimensionless index is 0.62. Tricuspid Valve: Normal tricuspid valve structure. Severe tricuspid regurgitation. No tricuspid valve stenosis. Estimated PASP 32mmHg+RA pressure. Pulmonic Valve: Normal pulmonic valve structure. Mild pulmonic regurgitation. No pulmonic valve stenosis present. Pericardium: Normal pericardium without pericardial effusion. Aorta: Normal aortic root size when indexed. The ascending aorta is normal in size when indexed. IVC: IVC is dilated. MEASUREMENTS: 2D/MM Value Range Doppler Value Range LVIDd 2D 5.91 cm [ 3.80 - 5.20 ] AV Peak Luis 1.9 m/s [ 1.0 - 1.7 ] LVIDs 2D 4.39 cm [ 2.20 - 3.50 ] AV Peak PG 14.44 mmHg IVSd 2D 0.96 cm [ 0.60 - 0.90 ] AV Mean PG 8 mmHg LVPWd 2D 0.96 cm [ 0.60 - 0.90 ] AV VTI 42.9 cm LV Thickness Ratio 1.0 LVOT Peak Luis 1.1 m/s [ 0.7 - 1.1 ] LV FS 2D 29.93 % [ 27.00 - 45.00 ] LVOT Peak PG 4.84 mmHg LV Mass 2D 234.86 g LVOT Mean PG 3 mmHg LV Mass Index 2D 126.95 g/m2 LVOT VTI 26.8 cm RWT 0.32 LVOT Diam 2.12 cm EDV Mod BP 149.09 ml [ 46.00 - 106.00 ] ALIZA VTI 2.20 cm2 LV EDV Index 80.59 ml/m2 LVOT/AV VTI 0.62 - Dimensionless index (DVI) ESV Mod BP 69.42 ml [ 14.00 - 42.00 ] MV Peak Luis 1.6 m/s EF Mod BP 53 % [ 54 - 74 ] MV Peak PG 10.24 mmHg LV GLS -15.6 % [ -25.0 - -18.0 ] MV Mean PG 5 mmHg LA Length 4C 6.58 cm MV VTI 49.3 cm LA Length 2C 6.32 cm MR Peak Luis 5.7 m/s LA Volume BP 117.64 ml MR Peak PG 129.96 mmHg LA Volume Index 63.59 ml/m2 [ 16.00 - 34.00 ] MR VTI 190.4 cm RV Base Dimen 2D 5.2 cm [ 2.5 - 4.2 ] RV S` 9.48 cm/sec TAPSE 1.75 cm [ 1.71 - 5.00 ] TR Peak Luis 2.8 m/s [ 1.0 - 2.8 ] AoR Diam 2D 2.68 cm [ 2.70 - 3.70 ] TR Peak PG 31.4 mmHg Ao Root Index 1.45 cm/m2 [ 1.00 - 2.00 ] PV Peak Luis 1.2 m/s [ 0.4 - 0.8 ] Asc Ao Diam 2D 3.02 cm PV Peak PG 5.76 mmHg Asc Ao Index 1.63 cm/m2 Electronically Signed By: Neftali Brandon MD 01/28/2025 9:44:23 AM CDT Procedure Note Neftali Brandon MD - 01/28/2025 [facility] [place] [address] Transthoracic Echocardiographic Report Patient Name: NEGRITA LINCOLN C : 1950 (74y 2m) Gender: F Study Date: 01/28/2025 07:25:05 AM Ht(Inch): 64 Wt(Lb): 166.89 BSA: 1.85 Senior Systems Administrator: Janet Khanna RDCS Location: [id number] Order Provider:PRABHA LAGUNAS Heart Rate: 69 BMI: 28.64 BP: 151 / 51 Ref Provider: PRABHA LAGUNAS PROCEDURES: Echocardiographic Report: Transthoracic complete echo with strain imagingand contrast, 2D, spectral and tissue Doppler, color flow Doppler, M-mode. Contrast: Contrast Enhancement was Employed: Due to suboptimal imagequality with inadequate visualization of at least 2 of 16 LV wall segments in any viewafter initial imaging. Perflutren contrast was administered using the volume necessaryto obtain adequate images. 1.1 ml Optison Administered, (1.9 ml wasted). INDICATIONS: S/P Mitraclip (XTW x 1) - CONCLUSIONS: 1. Moderately dilated LV. Eccentric LV hypertrophy. LVEF 53%.Indeterminate diastolic function. 2. Right ventricular dilatation. Normal right ventricular systolicfunction. Wire noted in the right heart. 3. S/p M-ISSA: ModerateMR. The mean transmitral gradient is: 5 mmHg at aheart rate of 72 bpm. 4. Mildly thickened aortic valve leaflets. The mean transaortic gradientis 8 mmHg. 5. Severe tricuspid regurgitation. Estimated PASP 32mmHg+RA pressure. 6. Normal pericardium without pericardial effusion. 7. Normal aortic root size when indexed. 8. IVC is dilated. ATTESTATION: I have personally reviewed and interpreted this study without fellow orresident. DISCLAIMER: The study images and the final report will be retained in the patientchart by the Echo Laboratory for the legally required time period. This chart constitutesthe legal record of any testing performed. FINDINGS: Left Ventricle: Moderately dilated left ventricle based on 2Dmeasurements. Eccentric LV hypertrophy. Mildly depressed left ventricular systolic function. TheEjection Fraction (Gonzalez's) is measured at 53 %. Left ventricular diastolic function isindeterminate due to mitral valve repair or replacement. The average global longitudinalstrain is abnormal. The LV global strain is: -15.6 %. Right Ventricle: Right ventricular dilatation. Normal right ventricularsystolic function. Wire noted in the right heart. Left Atrium: Severely dilated left atrium. Right Atrium: Right atrial dilatation. Mitral Valve: Moderate mitral valve regurgitation. The mean transmitralgradient is: 5 mmHg. at a heart rate of 72 beats per minute. Specific MV StructureAbnormalities: S/p MV ISSA. Aortic Valve: Normal trileaflet aortic valve. Mildly thickened aorticvalve leaflets. No aortic regurgitation. No aortic valve stenosis. The mean transaorticgradient is 8 mmHg. The aortic valve area by the continuity equation (using VTI) is 2.2 cm2.Aortic valve dimensionless index is 0.62. Tricuspid Valve: Normal tricuspid valve structure. Severe tricuspidregurgitation. No tricuspid valve stenosis. Estimated PASP 32mmHg+RA pressure. Pulmonic Valve: Normal pulmonic valve structure. Mild pulmonicregurgitation. No pulmonic valve stenosis present. Pericardium: Normal pericardium without pericardial effusion. Aorta: Normal aortic root size when indexed. The ascending aorta is normalin size when indexed. IVC: IVC is dilated. MEASUREMENTS: 2D/MM Value Range DopplerValue Range LVIDd 2D 5.91 cm [ 3.80 - 5.20 ] AV Peak Vel1.9 m/s [ 1.0 - 1.7 ] LVIDs 2D 4.39 cm [ 2.20 - 3.50 ] AV Peak PG14.44 mmHg IVSd 2D 0.96 cm [ 0.60 - 0.90 ] AV Mean PG8 mmHg LVPWd 2D 0.96 cm [ 0.60 - 0.90 ] AV VTI42.9 cm LV Thickness Ratio 1.0 LVOT Peak Vel1.1 m/s [ 0.7 - 1.1 ] LV FS 2D 29.93 % [ 27.00 - 45.00 ] LVOT Peak PG4.84 mmHg LV Mass 2D 234.86 g LVOT Mean PG3 mmHg LV Mass Index 2D 126.95 g/m2 LVOT VTI26.8 cm RWT 0.32 LVOT Diam2.12 cm EDV Mod BP 149.09 ml [ 46.00 - 106.00 ] ALIZA VTI2.20 cm2 LV EDV Index 80.59 ml/m2 LVOT/AV VTI0.62 - Dimensionless index (DVI) ESV Mod BP 69.42 ml [ 14.00 - 42.00 ] MV Peak Vel1.6 m/s EF Mod BP 53 % [ 54 - 74 ] MV Peak PG10.24 mmHg LV GLS -15.6 % [ -25.0 - -18.0 ] MV Mean PG5 mmHg LA Length 4C 6.58 cm MV VTI49.3 cm LA Length 2C 6.32 cm MR Peak Vel5.7 m/s LA Volume BP 117.64 ml MR Peak PG129.96 mmHg LA Volume Index 63.59 ml/m2 [ 16.00 - 34.00 ] MR NVG684.4 cm RV Base Dimen 2D 5.2 cm [ 2.5 - 4.2 ] RV S`9.48 cm/sec TAPSE 1.75 cm [ 1.71 - 5.00 ] TR Peak Vel2.8 m/s [ 1.0 - 2.8 ] AoR Diam 2D 2.68 cm [ 2.70 - 3.70 ] TR Peak PG31.4 mmHg Ao Root Index 1.45 cm/m2 [ 1.00 - 2.00 ] PV Peak Vel1.2 m/s [ 0.4 - 0.8 ] Asc Ao Diam 2D 3.02 cm PV Peak PG5.76 mmHg Asc Ao Index1.63 cm/m2 Electronically Signed By: Neftali Brandon MD 01/28/2025 9:44:23 AM CDT Prabha Lagunas NP CV ECHO PROCEDURES Final Re sult * Tacrolimus level trough (01/28/2025 4:24 AM CDT) Tacrolimus trough 3.7 ng/mL Comment: Interpretive Data Testing performed by liquid chromatography-tandem mass spectrometry. Therapeutic concentrations vary depending on type of transplanted organ and time elapsed since transplant. Typical trough concentrations range from 5-15 ng/mL. This test was developed and its performance characteristics determined by the [facility] consistent with CLIA requirements. This test has not been cleared or approved by the [place] Food and Drug administration. Current interpretive data last reviewed 2020. Blood 01/28/2025 4:24 AM CDT 01/28/2025 5:02 AM CDT Narrative [facility] - 01/28/2025 9:04 AM CDT Please check before administering morning tacrolimus dose Gisselle Sheffield MD LAB BLOOD ORDERABLES Final Re sult Performing Organization Address City/[facility]/ZIP Co de Phone Number [facility] Department [place] [address] * (ABNORMAL) Potassium (01/28/2025 4:24 AM CDT) Potassium, pl 5.3(H) 3.3 - 4.9 mmol/L Blood 01/28/2025 4:24 AM CDT 01/28/2025 5:03 AM CDT Holly Mix NP LAB BLOOD ORDERABLES Final Result [facility] [place] [address] * POCT glucose (01/28/2025 3:59 AM CDT) Glucose, POC 174 70 - 199 mg/dL Blood 01/28/2025 3:59 AM CDT 01/28/2025 3:59 AM CDT Shante Cunningham MD LAB POCT ORDERABLES - DEVICE Fin al Result Performing Organization Address City/[facility] [place] [address] * (ABNORMAL) POCT glucose (01/28/2025 12:42 AM CDT) Glucose, POC 255(H) 70 - 199 mg/dL Blood 01/28/2025 12:4 2 AM CDT 01/28/2025 12:42 AM CDT Shante Cunningham MD LAB POCT ORDERABLES - DEVICE Fin al Result Performing Organization Address [facility] [place] [address] * (ABNORMAL) Sodium, whole blood (01/27/2025 10:43 PM CDT) Sodium, Whole Blood 122(L) 135 - 145 mmol/L Blood 01/27/2025 10:4 3 PM CDT 01/27/2025 11:36 PM CDT Holly Mix NP LAB BLOOD ORDERABLES Final Result Performing Organization Address City/[facility]/ZIP Co de Phone Number [facility] [place] [address] * (ABNORMAL) eGFR (01/27/2025 10:43 PM CDT) [facility] eGFR 18(L) >=60 mL/min/1. 73 m2 Comment: Interpretive Data Reference Interval Normal >/= 90 mL/min/1.73m2 Mildly decreased* 60 - 89 mL/min/1.73m2 Mildly to moderately decreased 45 - 59 mL/min/1.73m2 Moderately to severely decreased 30 - 44 mL/min/1.73m2 Severely decreased 15 - 29 mL/min/1.73m2 Kidney Failure < 15 mL/min/1.73m2 *Relative to young adult level Estimated glomerular filtration rate is determined by the 2020 CKD-EPI equation recommended by the National Kidney Foundation (A Unifying Approach to GFR Estimation: Recommendations of the NKF-ASK Task Force on Reassessing the Inclusion of Race in Diagnosing Kidney Disease, JASN 2020). The CKD-EPI equation should not be used for patients with unstable renal function and has not been validated in children and those over 70. Current interpretive data was last reviewed 2021. Blood 01/27/2025 10:4 3 PM CDT 01/27/2025 11:47 PM CDT us Shante Cunningham MD LAB BLOOD ORDERABLES Final Resul t [facility] Department [place] [address] * (ABNORMAL) CBC without differential (01/27/2025 10:43 PM CDT) [facility] WBC 5.1 3.8 - 9.9 K/cumm Hgb 7.4(L) 11.9 - 15.5 g/dL [facility] Hct 23.2(L) 35.6 - 45.5 % [facility] Plt 170 150 - 400 K/cumm [facility] MPV 9.2 9.1 - 12.3 fL [facility] RBC 2.44(L) 3.90 - 5.20 M/cumm [facility] MCV 95.1 81.3 - 96.4 fL [facility] MCH 30.3 27.1 - 33.3 pg [facility] MCHC 31.9(L) 32.3 - 35.7 g/dL [facility] RDW CV 16.7(H) 11.1 - 14.9 % [facility] RDW SD 58.5(H) 35.7 - 48.1 fL [facility] NRBC abs 0.00 0.00 - 0.01 K/cumm [facility] Blood 01/27/2025 10:4 3 PM CDT 01/27/2025 11:54 PM CDT Prabha Lagunas MEDIA ANALYST LAB BLOOD ORDERABLES Final Result Performing Organization Address City/[facility]/ZIP Co de Phone Number [facility] [place] [address] * (ABNORMAL) Phosphorus (01/27/2025 10:43 PM CDT) Phosphorus, pl 4.8(H) 2.3 - 4.5 mg/dL Blood 01/27/2025 10:4 3 PM CDT 01/27/2025 11:39 PM CDT Holly Mix MEDIA ANALYST LAB BLOOD ORDERABLES Final Result Performing Organization Address [facility] Co de Phone Number [facility] Department [place] [address] * Magnesium (01/27/2025 10:43 PM CDT) Magnesium 2.4 1.4 - 2.5 mg/dL Blood 01/27/2025 10:4 3 PM CDT 01/27/2025 11:39 PM CDT Holly Mix MEDIA ANALYST LAB BLOOD ORDERABLES Final Result Performing Organization Address City/[facility]/ZIP Co de Phone Number [facility] Department [place] [address] * (ABNORMAL) Basic metabolic panel (01/27/2025 10:43 PM CDT) Sodium 125(L) 135 - 145 mmol/L Potassium, pl 5.4(H) 3.3 - 4.9 mmol/L [facility] Chloride 89(L) 97 - 110 mmol/L [facility] CO2 24 22 - 32 mmol/L [facility] Anion gap 12 2 - 15 mmol/L [facility] BUN 106(H) 6 - 25 mg/dL [facility] Creatinine 2.66(H) 0.60 - 1.10 mg/dL [facility] Glucose 274(H) 70 - 199 mg/dL [facility] Comment: Interpretive Data Fasting glucose >/= 126 mg/dl is diagnostic for diabetes. Fasting is defined as no caloric intake for at least 8 hours. Fasting glucose between 100 mg/dl to 125 mg/dl is diagnostic of prediabetes. In a patient with classic symptoms of hyperglycemia or hyperglycemic crisis, a random glucose >/= 200 mg/dl is diagnostic for diabetes. In the absence of unequivocal hyperglycemia, results should be confirmed by repeat testing. The classification and Diagnosis of Diabetes Diabetes Care 202; 46: S19-S40. Current interpretive data was last revised 2022. Calcium 8.1(L) 8.5 - 10.3 mg/dL [facility] Blood 01/27/2025 10:4 3 PM CDT 01/27/2025 11:39 PM CDT us Shante Cunningham MD LAB BLOOD ORDERABLES Final Resul t [facility] [place] [address] * FRANKLIN Guidance [place] [id number] (01/27/2025 12:21 PM CDT) Anatomical Region Laterality Modality Echocardiography 01/27/2025 9:03 AM CDT Narrative 01/29/2025 3:06 AM CDT [facility] [place] [address] Transesophageal Echocardiographic Report Patient Name: NEGRITA LINCOLN C : 1950 (74y 2m) Gender: F Study Date: 01/27/2025 09:03:50 AM Ht(Inch): Wt(Lb): BSA: Senior Systems Administrator: Location: [id number] Order Provider: JESUS SOTO BMI: Ref Provider: JESUS SOTO PROCEDURES: Transesophageal Echo Report: Echocardiography, transesophageal (FRANKLIN) for guidance of a transcatheter intracardiac or great vessel(s) structural intervention(s) including image acquisition, interpretation, and report; Doppler echocardiography, limited pulsed wave and/or continuous wave with spectral display; Doppler echocardiography color flow velocity mapping; 3D echocardiography, rendering with interpretation and reporting, not requiring post-processing on an independent workstation. Performing Physician: Performed by Jesus Soto MD. FRANKLIN probe placed by Jesus Soto MD. Consent: Informed consent was obtained from the patient in writing. The risks and benefits of the procedure were explained in detail to the patient, including but not limited to the risk of aspiration, dysphagia, and esophageal perforation. After a thorough discussion of these risks and benefits, the patient agreed to proceed. Description: A complete transesophageal echocardiogram was performed in the cardiac catheterization laboratory prior to and during a structural heart interventional procedure. The procedure was performed with the patient intubated and sedated under general anesthesia. The probe was passed by the cardiac anesthesiologist. Standard views were obtained in the transgastric, mid esophageal, and basal planes using a multiplane transesophageal echo probe. Additional evaluation with color flow Doppler and limited spectral Doppler was performed. 3D echocardiography was also performed with image acquisition and post-processing of images. INDICATIONS: Mitral valve disease. FINDINGS: Left Ventricle: The left ventricle appears dilated. Left ventricular systolic function appears mildly reduced. Right Ventricle: The right ventricle appears dilated. Right ventricular systolic function appears mildly reduced. Left Atrium: Moderately dilated left atrium. The left atrial appendage is normal in appearance with no evidence of thrombus. Right Atrium: Moderately dilated right atrium. Mitral Valve: Mitral valve leaflets appear mildly thickened. Mildly tethered motion of P2 scallop. Pear-shaped central to medial ERO. Severe mitral regurgitation. ERO=0.4 cm2, VC=8 mm, blunted systolic PV flow. Mean gradient 1 mmHg. MVA=5.5cm2, P2 length=1.7cm. Tricuspid Valve: There is severe tricuspid regurgitation. Two separate ICD leads traverse the TV anteriorly at position close to anterior commissure. There is malcoaptation of the central portions of and PS leaflets immediately posterior to ICD leads. Majurity of TR is at this site. Poor visualization of the anterior portions of the leaflets. Pericardium: Normal pericardium with no pericardial effusion. 3D Findings: 3D assessment of MV. Continuous 3D and 3D MPR guidance for guiding MV ISSA device deployment. One MitraClip device placed at A2-P2 locations with an appropriate tissue bridge and with a reduction of MR from severe to mil. Mean MV gradient 3 mmHg. Blunting of PV systolic flow improved. Small residual L to R shunt at atrial septostomy. CONCLUSIONS: 1. Successful deployment of a single MitraClip in A2-P-2 position under echo guidence. ATTESTATION: I have personally reviewed and interpreted this study without fellow or resident. - DISCLAIMER: The study images and the final report will be retained in the patient chart by the Echo Laboratory for the legally required time period. This chart constitutes the legal record of any testing performed. Electronically Signed By: Jesus Soto MD 01/29/2025 3:05:20 AM CDT CC: Jesus Soto MD Procedure Note Jesus Soto MD - 01/29/2025 [facility] [place] [address] Transesophageal Echocardiographic Report Patient Name: NEGRITA LINCOLN C : 1950 (74y 2m) Gender: F Study Date: 01/27/2025 09:03:50 AM Ht(Inch): Wt(Lb): BSA: Senior Systems Administrator: Location: [facility] Order Provider: JESUS SOTO BMI: Ref Provider: JESUS SOTO PROCEDURES: Transesophageal Echo Report: Echocardiography, transesophageal (FRANKLIN) forguidance of a transcatheter intracardiac or great vessel(s) structural intervention(s)including image acquisition, interpretation, and report; Doppler echocardiography, limitedpulsed wave and/or continuous wave with spectral display; Doppler echocardiographycolor flow velocity mapping; 3D echocardiography, rendering with interpretation andreporting, not requiring post-processing on an independent workstation. Performing Physician: Performed by Jesus Soto MD. FRANKLIN probe placed byJesus Soto MD. Consent: Informed consent was obtained from the patient in writing. Therisks and benefits of the procedure were explained in detail to the patient,including but not limited to the risk of aspiration, dysphagia, and esophageal perforation.After a thorough discussion of these risks and benefits, the patient agreed toproceed. Description: A complete transesophageal echocardiogram was performed inthe cardiac catheterization laboratory prior to and during a structural heartinterventional procedure. The procedure was performed with the patient intubated andsedated under general anesthesia. The probe was passed by the cardiac anesthesiologist.Standard views were obtained in the transgastric, mid esophageal, and basal planes usinga multiplane transesophageal echo probe. Additional evaluation with color flow Dopplerand limited spectral Doppler was performed. 3D echocardiography was also performedwith image acquisition and post-processing of images. INDICATIONS: Mitral valve disease. FINDINGS: Left Ventricle: The left ventricle appears dilated. Left ventricularsystolic function appears mildly reduced. Right Ventricle: The right ventricle appears dilated. Right ventricularsystolic function appears mildly reduced. Left Atrium: Moderately dilated left atrium. The left atrial appendage isnormal in appearance with no evidence of thrombus. Right Atrium: Moderately dilated right atrium. Mitral Valve: Mitral valve leaflets appear mildly thickened. Mildlytethered motion of P2 scallop. Pear-shaped central to medial ERO. Severe mitral regurgitation.ERO=0.4 cm2, VC=8 mm, blunted systolic PV flow. Mean gradient 1 mmHg. MVA=5.5cm2, B3nbtdvp=3.7cm. Tricuspid Valve: There is severe tricuspid regurgitation. Two separate ICDleads traverse the TV anteriorly at position close to anterior commissure. There ismalcoaptation of the central portions of and PS leaflets immediately posterior to ICDleads. Majurity of TR is at this site. Poor visualization of the anterior portions of theAS leaflets. Pericardium: Normal pericardium with no pericardial effusion. 3D Findings: 3D assessment of MV. Continuous 3D and 3D MPR guidance forguiding MV ISSA device deployment. One MitraClip device placed at A2-P2 locations with anappropriate tissue bridge and with a reduction of MR from severe to mil. Mean MVgradient 3 mmHg. Blunting of PV systolic flow improved. Small residual L to R shunt atatrial septostomy. CONCLUSIONS: 1. Successful deployment of a single MitraClip in A2-P-2 position underecho guidence. ATTESTATION: I have personally reviewed and interpreted this study without fellow orresident. - DISCLAIMER: The study images and the final report will be retained in the patientchart by the Echo Laboratory for the legally required time period. This chart constitutesthe legal record of any testing performed. Electronically Signed By: Jesus Soto MD 01/29/2025 3:05:20 AM CDT CC: Jesus Soto MD Jesus Soto MD CV ECHO PROCEDURES Final Result * XR Chest 1 view (01/27/2025 11:46 AM CDT) Anatomical Region Laterality Modality Body, Chest N/A Computed Radiogr aphy 01/27/2025 4:48 PM CDT Impressions 01/27/2025 4:48 PM CDT The current study is compared with the prior radiograph dated 01/26/2025 The patient is status post a median sternotomy, mediastinal wires are aligned.. Pacer defibrillator is in place with 2 leads overlying expected position of the right ventricle. A new micra clip is in place. The heart is mildly enlarged. Central pulmonary arteries appear prominent but unchanged from prior study. There is increasing patchy atelectasis bilaterally. There is no pneumothorax.. No effusions. Numerous surgical clips overlie the abdomen. There is very extensive splenic artery calcification. There is old granulomatous disease.. Electronically signed by: Maite Quijano M.D. Narrative 01/27/2025 4:48 PM CDT EXAMINATION: 1 view chest radiograph Procedure Note Maite Quijano MD - 01/27/2025 EXAMINATION: 1 view chest radiograph IMPRESSION: The current study is compared with the prior radiograph dated 01/26/2025 The patient is status post a median sternotomy, mediastinal wires are aligned.. Pacer defibrillator is in place with 2 leads overlying expected position of the right ventricle. A new micra clip is in place. The heart is mildly enlarged. Central pulmonary arteries appear prominent but unchanged from prior study. There is increasing patchy atelectasis bilaterally. There is no pneumothorax.. No effusions. Numerous surgical clips overlie the abdomen. There is very extensive splenic artery calcification. There is old granulomatous disease.. Electronically signed by: Maite Quijano M.D. us Prabha Lagunas NP IMG XR PROCEDURES Final Res ult * (ABNORMAL) eGFR (01/27/2025 10:56 AM CDT) eGFR 18(L) >=60 mL/min/1. 73 m2 Comment: Interpretive Data Reference Interval Normal >/= 90 mL/min/1.73m2 Mildly decreased* 60 - 89 mL/min/1.73m2 Mildly to moderately decreased 45 - 59 mL/min/1.73m2 Moderately to severely decreased 30 - 44 mL/min/1.73m2 Severely decreased 15 - 29 mL/min/1.73m2 Kidney Failure < 15 mL/min/1.73m2 *Relative to young adult level Estimated glomerular filtration rate is determined by the 2020 CKD-EPI equation recommended by the National Kidney Foundation (A Unifying Approach to GFR Estimation: Recommendations of the NKF-ASK Task Force on Reassessing the Inclusion of Race in Diagnosing Kidney Disease, JASN 202). The CKD-EPI equation should not be used for patients with unstable renal function and has not been validated in children and those over 70. Current interpretive data was last reviewed 2021. Blood 01/27/2025 10:5 6 AM CDT 01/27/2025 11:39 AM CDT us Prabah Lagunas NP LAB BLOOD ORDERABLES Final Result [facility] Department [place] [address] * (ABNORMAL) Differential, auto (01/27/2025 10:56 AM CDT) Neutrophil abs 6.9(H) 1.5 - 6.5 K/cumm Imm gran abs 0.1 0.0 - 0.1 K/cumm [facility] Lymphocyte abs 2.2 0.8 - 3.3 K/cumm [facility] Monocyte abs 1.3(H) 0.2 - 0.8 K/cumm [facility] Eosinophil abs 0.5 0.0 - 0.5 K/cumm [facility] Basophil abs 0.1 0.0 - 0.1 K/cumm [facility] Neutrophil pct 62.6 % [facility] Comment: Interpretive Data Percent cell count reference ranges are not reported, since discordance with absolute values may lead to misinterpretation of CBC data. Current Interpretive Data was last revised on 2018. Imm gran pct 1.1 % [facility] [facility] Comment: Interpretive Data Percent cell count reference ranges are not reported, since discordance with absolute values may lead to misinterpretation of CBC data. Current Interpretive Data was last revised on 2018. Lymphocyte pct 19.7 % [facility] Comment: Interpretive Data Percent cell count reference ranges are not reported, since discordance with absolute values may lead to misinterpretation of CBC data. Current Interpretive Data was last revised on 2018. Monocyte pct 11.7 % [facility] Comment: Interpretive Data Percent cell count reference ranges are not reported, since discordance with absolute values may lead to misinterpretation of CBC data. Current Interpretive Data was last revised on 2018. Eosinophil pct 4.4 % [facility] Comment: Interpretive Data Percent cell count reference ranges are not reported, since discordance with absolute values may lead to misinterpretation of CBC data. Current Interpretive Data was last revised on 2018. Basophil pct 0.5 % [facility] Comment: Interpretive Data Percent cell count reference ranges are not reported, since discordance with absolute values may lead to misinterpretation of CBC data. Current Interpretive Data was last revised on 2018. Blood 01/27/2025 10:5 6 AM CDT 01/27/2025 11:34 AM CDT us Prabha Lagunas NP LAB BLOOD ORDERABLES Final Result [facility] Department [place] [address] * Critical Result Callback Hematology (01/27/2025 10:56 AM CDT) Date Notified [id number] Time Notified 1321 [facility] TestName aPTT [facility] Called/Read Back Danna HICKS Credentials IZA HICKS Called By ALISON HICKS Blood 01/27/2025 10:5 6 AM CDT 01/27/2025 11:39 AM CDT us Prabha Lagunas NP LAB BLOOD ORDERABLES Final Result [facility] Department [place] [address] * (ABNORMAL) CBC with auto differential (01/27/2025 10:56 AM CDT) [facility] WBC 11.0(H) 3.8 - 9.9 K/cumm Hgb 7.6(L) 11.9 - 15.5 g/dL [facility] Hct 23.2(L) 35.6 - 45.5 % [facility] Plt 163 150 - 400 K/cumm [facility] MPV 8.8(L) 9.1 - 12.3 fL [facility] RBC 2.48(L) 3.90 - 5.20 M/cumm [facility] MCV 93.5 81.3 - 96.4 fL [facility] MCH 30.6 27.1 - 33.3 pg [facility] MCHC 32.8 32.3 - 35.7 g/dL [facility] RDW CV 16.6(H) 11.1 - 14.9 % [facility] RDW SD 57.0(H) 35.7 - 48.1 fL [facility] NRBC abs 0.00 0.00 - 0.01 K/cumm [facility] Blood 01/27/2025 10:5 6 AM CDT 01/27/2025 11:34 AM CDT Prabha Lagunas NP LAB BLOOD ORDERABLES Final Result [facility] Department [place] [address] * (ABNORMAL) aPTT (01/27/2025 10:56 AM CDT) [facility] aPTT >150(C) 28 - 38 sec Comment: verified. Interpretive Data Heparin therapeutic range: 66.0 - 100.0 seconds. Range based on correlation with therapeutic heparin activity range of 0.3 - 0.7 Units/mL. Current interpretive data was last revised on 2023. Blood 01/27/2025 10:5 6 AM CDT 01/27/2025 11:34 AM CDT Prabha Lagunas MEDIA ANALYST LAB BLOOD ORDERABLES Final Result Performing Organization Address City/[facility] Co de Phone Number [facility] [place] [address] * (ABNORMAL) Protime-INR (01/27/2025 10:56 AM CDT) PT 13.6(H) 9.7 - 13.0 sec INR 1.25(H) 0.90 - 1.20 [facility] Comment: Interpretive data Oral anticoagulant therapeutic ranges: Venous thromboembolism prophylaxis or treatment: 2.0-3.0 CARDIOLOGY Standard range: 2.0-3.0 High-intensity range: 2.5-3.5 Refer to indication-specific guidelines for appropriate target ranges for prosthetic heart valve replacement. Current interpretive data was last revised on 2019. Blood 01/27/2025 10:5 6 AM CDT 01/27/2025 11:34 AM CDT Prabha Lagunas NP LAB BLOOD ORDERABLES Final Result Performing Organization Address [facility] Co de Phone Number [facility] [address] * Magnesium (01/27/2025 10:56 AM CDT) Pathologist [facility] Magnesium 2.3 1.4 - 2.5 mg/dL Blood 01/27/2025 10:5 6 AM CDT 01/27/2025 11:35 AM CDT Result [facility] Prabha Lagunas NP LAB BLOOD ORDERABLES Final Result Performing Organization Address [facility] [place] [address] * (ABNORMAL) Comprehensive metabolic panel (01/27/2025 10:56 AM CDT) Sodium 126(L) 135 - 145 mmol/L Potassium, pl 4.7 3.3 - 4.9 mmol/L [facility] Chloride 91(L) 97 - 110 mmol/L [facility] CO2 25 22 - 32 mmol/L [facility] Anion gap 10 2 - 15 mmol/L [facility] BUN 107(H) 6 - 25 mg/dL [facility] Creatinine 2.64(H) 0.60 - 1.10 mg/dL [facility] Glucose 104 70 - 199 mg/dL [facility] Comment: Interpretive Data Fasting glucose >/= 126 mg/dl is diagnostic for diabetes. Fasting is defined as no caloric intake for at least 8 hours. Fasting glucose between 100 mg/dl to 125 mg/dl is diagnostic of prediabetes. In a patient with classic symptoms of hyperglycemia or hyperglycemic crisis, a random glucose >/= 200 mg/dl is diagnostic for diabetes. In the absence of unequivocal hyperglycemia, results should be confirmed by repeat testing. The classification and Diagnosis of Diabetes Diabetes Care 202; 46: S19-S40. Current interpretive data was last revised 2022. Calcium 8.0(L) 8.5 - 10.3 mg/dL [facility] Bilirubin, total 0.3 0.1 - 1.2 mg/dL [facility] Protein, pl 5.6(L) 6.5 - 8.5 g/dL [facility] Albumin 2.8(L) 3.5 - 5.0 g/dL [facility] Alk phos 50 40 - 130 Units/L [facility] ALT 11 7 - 45 Units/L [facility] AST 18 10 - 45 Units/L [facility] Blood 01/27/2025 10:5 6 AM CDT 01/27/2025 11:35 AM CDT us Prabha Lagunas NP LAB BLOOD ORDERABLES Final Result [facility] Department [place] [address] * (ABNORMAL) POCT Activated clotting time, low range (01/27/2025 10:46 AM CDT) ACT 282(H) 123 - 168 sec POC Performer 1577 [facility] POC Device Number [id number] [facility] Blood 01/27/2025 10:4 6 AM CDT 01/27/2025 10:46 AM CDT us Shante Cunningham MD LAB POCT ORDERABLES - DEVICE Fin al Result [facility] Department [place] [address] * MITRAL VALVE REPAIR WITH CLIP PROSTHESIS (1ST CLIP) (01/27/2025 10:43 AM CDT) Anatomical Region Laterality Modality X-Ray Angiograph y Narrative 01/27/2025 5:01 PM CDT Table formatting from the original result was not included. TRANSCATHETER EDGE TO EDGE MITRAL VALVE REPAIR Name: Negrita Lincoln Today's Date: 01/27/2025 Primary Care Provider: Nidhi Nichols PA Referring Provider: Marino Hernandez MD Procedure: 1. Transseptal puncture 2. Transcatheter mitral valve edge to edge repair with XTW Clip 3. Transesophageal echocardiogram performed by Dr Soot Indications: 1. Severe Mitral Regurgitation Type of anesthesia: General Clinical Profile: Ms. Lincoln is 74 y.o. female with a history of end-stage renal disease status post renal transplantation who presents for worsening shortness of breath and was found to have significant mitral regurgitation. 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 PROCEDURE: The risks, benefits and alternatives of the procedures and General Anesthesia were explained to the patient and informed consent was obtained. The patient was brought to the concrete plant laborer and placed on the table Bilateral groins were prepped and draped in the usual sterile fashion. The patient was placed under general anesthesia The Right Femoral vein was accessed using a Micropuncture kit and the modified Seldinger technique with a Micro needle, a wire was threaded into the vessel, and a 22Fr Sheath was advanced over the wire into the vessel. Transeptal Puncture Preformed with Praneeth Versicross Ssytem Transcatheter mitral valve edge to edge repair performed with a MitraClip system. XTW Clip was deployed Left atrial Hemodynamics were measured using guide sheath both pre and post At the end of the procedure, arteriotomy was successfully closed and hemostasis achieved by a [id number] stitch in manual compression Patient was transferred to the PACU area in stable condition. There were no apparent complications. RESULTS: The patient was brought to the cardiac catheterization suite/hybrid OR and prepped and draped in a sterile fashion. They are placed under general anesthesia and a transesophageal probe was inserted without difficulty. Dr Soto did the initial survey that showed severe mitral regurgitation and felt it was appropriate for proceeding with edge to edge repair. Using ultrasound guidance access was obtained in the right common femoral vein an 8 Cypriot sheath inserted. A small amount of heparin was administered and using the Morris versus across system and FRANKLIN guidance, a transseptal puncture was performed. The versicross wire was placed and the vein dilated up with an 20 Cypriot dilator. The MitraClip sheath was prepped on the back table and delivered easily across the interatrial septum into the left atrium. Next we removed the wire and dilator and thoroughly de-aired the system. The left atrial pressure was measured with a mean pressure of 20 mm Hg with a V-wave up to 30 mm Hg. Next we prepped and XTW clip on the back table and tested thoroughly to ensure proper function. The clip Was delivered into the guide and thoroughly de-aired. It was manipulated into the left atrium. Using transesophageal echo guidance the clip was manipulated and positioned into place. It was delivered across the valve and grasped both leaflets well. It was closed and showed a reduction in mitral regurgitation. The mean gradient was 3 mm Hg and the clip was checked for secure placement. It was deemed to be in a secure place and was properly detached without complication. It Was delivered back into the guide with a guide still into the left atrium. We then surveyed the mitral regurgitation and found it to be mild. The MR did reduced significantly. A survey showed the mean gradient still 3 mm Hg with a reduction in mitral regurgitation. We felt it was in a secure location it was released without complication. The sheath guide and MitraClip were pulled back into the IVC and [id number] secured the sheath as it was removed. There was excellent hemostasis. Final assessment by transesophageal echocardiogram showed no no effusion with a mean gradient of 3 mm Hg with nmild mitral regurgitation with the XTW clips securely in place with an excellent tissue bridge. The final left atrial pressure was around 16 mm Hg with a V-wave reduced to 24 mm Hg Complications: None Diagnostic Impression: 1) Severe Mitral regurgitation status post transcatheter mitral valve edge to edge repair with XTW clip Plan: 1. Bedrest x4 hours; ambulate tonight at dinner with assistance. Figure of eight stich should remain in place and can be removed at the bedside prior to discharge. 2. Asa and resume anticoagulation 3. Recovery in the postop anesthesia recovery area 4. Transfer to [facility] Bryan English MD Gisselle Sheffield MD CV CARDIAC CATH PROCEDURES Fi nal Result * (ABNORMAL) POCT Activated clotting time, low range (01/27/2025 10:23 AM CDT) ACT 295(H) 123 - 168 sec POC Performer 1577 [facility] POC Device Number [id number] [facility] Blood 01/27/2025 10:2 3 AM CDT 01/27/2025 10:23 AM CDT Shante Cunningham MD LAB POCT ORDERABLES - DEVICE Fin al Result [facility] Department [place] [address] * (ABNORMAL) POCT Activated clotting time, low range (01/27/2025 10:13 AM CDT) ACT 260(H) 123 - 168 sec POC Performer 1577 [facility] POC Device Number [id number] [facility] Blood 01/27/2025 10:1 3 AM CDT 01/27/2025 10:13 AM CDT Shante Cunningham MD LAB POCT ORDERABLES - DEVICE Fin al Result Performing Organization Address [facility] de Phone Number [facility] Department [place] [address] * (ABNORMAL) POCT Activated clotting time, low range (01/27/2025 9:49 AM CDT) ACT 316(H) 123 - 168 sec POC Performer 1577 [facility] POC Device Number [id number] [facility] Blood 01/27/2025 9:49 AM CDT 01/27/2025 9:49 AM CDT Shante Cunningham MD LAB POCT ORDERABLES - DEVICE Fin al Result Performing Organization Address [facility] de Phone Number [facility] Department [place] [address] * MS AN ELECTIVE ENDOTRACHEAL AIRWAY, MS AN PROCEDURE PLACEHOLDER (01/27/2025 9:28 AM CDT) Narrative Mayi March CRNA - 01/27/2025 9:28 AM CDT Mayi March CRNA 01/27/2025 9:40 AM Airway Patient location: OR Urgency: elective Indications for airway management: anesthesia Difficult airway: no Staff: Placed by: GLOBAL ENGINEERING MANAGER: Mayi March CRNA Emergent airway documentation: Risks and benefits discussed: yes Consent obtained: yes Consent given by: patient Airway prep: Preoxygenated: yes Patient position: sniffing Mask difficulty assessment: 1 - vent by mask Spontaneous ventilation during airway: present Sedation level during airway: GA Final airway details: Final airway type: endotracheal airway Tube type: ETT ETT size: 7.0 mm Cuffed: yes Technique used for successful ETT placement: video laryngoscopy Devices/Methods used in placement: intubating stylet Insertion site: oral Blade type: Warren Video blade type: Lucero Blade size: 3 Cormack-Lehane (video): grade I - full view of glottis Initial cuff pressure: 20 cm H2O Cuff volume: 6 mL Cuff inflated with: air ETT to teeth: 21 cm Placement verified by: auscultation Airway secured with: silk tape Number of attempts: 1 Ventilation between attempts: BVM us Sascha Yi MD ANESTHESIA ORDERABLES E dited Result - Final * Potassium, whole blood (01/27/2025 7:50 AM CDT) Potassium, bld 4.9 3.3 - 4.9 mmol/L Blood 01/27/2025 7:50 AM CDT 01/27/2025 8:02 AM CDT us Bryan English MD LAB BLOOD ORDERABLES Final R esult Performing Organization Address City/[facility] Co de Phone Number [facility] Department [place] [address] * Prepare RBC: 2 Units (01/27/2025 6:42 AM CDT) Product code [id number] Unit Number [id number] 0-I [facility] Product Blood Type BPOS [facility] Dispense Status RETURNED [facility] Product code [id number] [facility] Unit Number [id number] 1-4 [facility] Product Blood Type BPOS [facility] Dispense Status RETURNED [facility] Blood 01/27/2025 6:42 AM CDT 01/27/2025 6:41 AM CDT Narrative [facility] - 01/27/2025 11:48 AM CDT Specify Procedure:->mitral valve repair with clip Are special requirements needed? (All products are leukoreduced and CMV- safe)->No us Karrie Briggs NP BLOOD BANK PRODUCT ORDERABLES Fi nal Result Performing Organization Address City/[facility] Co de Phone Number [facility] Department [place] [address] * (ABNORMAL) eGFR (01/27/2025 3:33 AM CDT) eGFR 17(L) >=60 mL/min/1. 73 m2 Comment: Interpretive Data Reference Interval Normal >/= 90 mL/min/1.73m2 Mildly decreased* 60 - 89 mL/min/1.73m2 Mildly to moderately decreased 45 - 59 mL/min/1.73m2 Moderately to severely decreased 30 - 44 mL/min/1.73m2 Severely decreased 15 - 29 mL/min/1.73m2 Kidney Failure < 15 mL/min/1.73m2 *Relative to young adult level Estimated glomerular filtration rate is determined by the 2020 CKD-EPI equation recommended by the National Kidney Foundation (A Unifying Approach to GFR Estimation: Recommendations of the NKF-ASK Task Force on Reassessing the Inclusion of Race in Diagnosing Kidney Disease, JASN 2020). The CKD-EPI equation should not be used for patients with unstable renal function and has not been validated in children and those over 70. Current interpretive data was last reviewed 2021. Blood 01/27/2025 3:33 AM CDT 01/27/2025 4:49 AM CDT Gisselle Sheffield MD LAB BLOOD ORDERABLES Final Re sult [facility] Department [place] [address] * Tacrolimus level trough (01/27/2025 3:33 AM CDT) Tacrolimus trough 5.1 ng/mL Comment: Interpretive Data Testing performed by liquid chromatography-tandem mass spectrometry. Therapeutic concentrations vary depending on type of transplanted organ and time elapsed since transplant. Typical trough concentrations range from 5-15 ng/mL. This test was developed and its performance characteristics determined by the [facility] consistent with CLIA requirements. This test has not been cleared or approved by the US Food and Drug administration. Current interpretive data last reviewed 2020. Blood 01/27/2025 3:33 AM CDT 01/27/2025 4:49 AM CDT Narrative [facility] - 01/27/2025 7:43 AM CDT Please check before administering morning tacrolimus dose Gisselle Sheffield MD LAB BLOOD ORDERABLES Final Re sult Performing Organization Address City/[facility]/ZIP Co de Phone Number [facility] [place] [address] * (ABNORMAL) CBC without differential (01/27/2025 3:33 AM CDT) WBC 8.3 3.8 - 9.9 K/cumm Hgb 7.2(L) 11.9 - 15.5 g/dL [facility] Hct 22.4(L) 35.6 - 45.5 % [facility] Plt 158 150 - 400 K/cumm [facility] MPV 9.2 9.1 - 12.3 fL [facility] RBC 2.38(L) 3.90 - 5.20 M/cumm [facility] MCV 94.1 81.3 - 96.4 fL [facility] MCH 30.3 27.1 - 33.3 pg [facility] MCHC 32.1(L) 32.3 - 35.7 g/dL [facility] RDW CV 16.6(H) 11.1 - 14.9 % [facility] RDW SD 57.1(H) 35.7 - 48.1 fL [facility] NRBC abs 0.00 0.00 - 0.01 K/cumm [facility] Blood 01/27/2025 3:33 AM CDT 01/27/2025 4:49 AM CDT Gisselle Sheffield MD LAB BLOOD ORDERABLES Final Re sult Performing Organization Address City/[facility]/ZIP Co de Phone Number [facility] [place] [address] * (ABNORMAL) Phosphorus (01/27/2025 3:33 AM CDT) [facility] Phosphorus, pl 5.0(H) 2.3 - 4.5 mg/dL Blood 01/27/2025 3:33 AM CDT 01/27/2025 4:49 AM CDT Gisselle Sheffield MD LAB BLOOD ORDERABLES Final Re sult Performing Organization Address [facility]/ZIP Co de Phone Number [facility] [place] [address] * Magnesium (01/27/2025 3:33 AM CDT) [facility] Magnesium 2.5 1.4 - 2.5 mg/dL Blood 01/27/2025 3:33 AM CDT 01/27/2025 4:49 AM CDT Gisselle Sheffield MD LAB BLOOD ORDERABLES Final Re sult Performing Organization Address [facility] Co de Phone Number [facility] Department [place] [address] * (ABNORMAL) Basic metabolic panel (01/27/2025 3:33 AM CDT) [facility] Sodium 128(L) 135 - 145 mmol/L Potassium, pl 5.4(H) 3.3 - 4.9 mmol/L [facility] Chloride 90(L) 97 - 110 mmol/L [facility] CO2 27 22 - 32 mmol/L [facility] Anion gap 11 2 - 15 mmol/L [facility] BUN 105(H) 6 - 25 mg/dL [facility] Creatinine 2.79(H) 0.60 - 1.10 mg/dL [facility] Glucose 93 70 - 199 mg/dL [facility] Comment: Interpretive Data Fasting glucose >/= 126 mg/dl is diagnostic for diabetes. Fasting is defined as no caloric intake for at least 8 hours. Fasting glucose between 100 mg/dl to 125 mg/dl is diagnostic of prediabetes. In a patient with classic symptoms of hyperglycemia or hyperglycemic crisis, a random glucose >/= 200 mg/dl is diagnostic for diabetes. In the absence of unequivocal hyperglycemia, results should be confirmed by repeat testing. The classification and Diagnosis of Diabetes Diabetes Care 2021; 46: S19-S40. Current interpretive data was last revised 2022. Calcium 8.2(L) 8.5 - 10.3 mg/dL [facility] Blood 01/27/2025 3:33 AM CDT 01/27/2025 4:49 AM CDT us Gisselle Sheffield MD LAB BLOOD ORDERABLES Final Re sult [facility] [place] [address] * (ABNORMAL) Sodium, whole blood (01/26/2025 8:41 PM CDT) [facility] Sodium, Whole Blood 125(L) 135 - 145 mmol/L Blood 01/26/2025 8:41 PM CDT 01/26/2025 9:19 PM CDT us Klever Mejia MD LAB BLOOD ORDERABLES Final Result Performing Organization Address City/[facility]/ZIP Co de Phone Number 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 Changes from median sternotomy. Surgical clips overlying the right upper quadrant. Calcified granulomas at the left lung base. Bibasilar atelectasis. Mild pulmonary edema. No pneumothorax. Tiny bilateral pleural effusions which are unchanged. Dictated by: Ny Martinez MD The radiology attending physician has personally reviewed this study, and had reviewed and/or edited this written report and agrees with it. Electronically signed by: Alda Anderson M.D. 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 Changes from median sternotomy. Surgical clips overlying the right upper quadrant. Calcified granulomas at the left lung base. Bibasilar atelectasis. Mild pulmonary edema. No pneumothorax. Tiny bilateral pleural effusions which are unchanged. Dictated by: Ny Martinez MD The radiology attending physician has personally reviewed this study, and had reviewed and/or edited this written report and agrees with it. Electronically signed by: Alda Anderson M.D. Klever Mejia MD IMG XR PROCEDURES Final Re sult * (ABNORMAL) Sodium, whole blood (01/26/2025 6:05 AM CDT) Sodium, Whole Blood 122(L) 135 - 145 mmol/L Blood 01/26/2025 6:05 AM CDT 01/26/2025 6:23 AM CDT Klever Mejia MD LAB BLOOD ORDERABLES Final Result [facility] [place] [address] * Potassium, whole blood (01/26/2025 6:05 AM CDT) Potassium, bld 4.9 3.3 - 4.9 mmol/L Blood 01/26/2025 6:05 AM CDT 01/26/2025 6:23 AM CDT us Klever Mejia MD LAB BLOOD ORDERABLES Final Result [place] [address] * Type and screen (01/26/2025 6:05 AM CDT) Pathologist [facility] Demetria, indirect Negative ABO Rh B Positive [facility] Blood 01/26/2025 6:05 AM CDT 01/26/2025 6:34 AM CDT Narrative [facility] - 01/26/2025 7:34 AM CDT Has the patient had Daratumumab or Isatuximab in the past 6 months?->Unknown Gisselle Sheffield MD LAB BLOOD BANK TEST ORDERABLE S Final Result Performing Organization Address City/[facility] Co de Phone Number [facility] [place] [address] * (ABNORMAL) eGFR (01/26/2025 4:15 AM CDT) [facility] eGFR 18(L) >=60 mL/min/1. 73 m2 Comment: Interpretive Data Reference Interval Normal >/= 90 mL/min/1.73m2 Mildly decreased* 60 - 89 mL/min/1.73m2 Mildly to moderately decreased 45 - 59 mL/min/1.73m2 Moderately to severely decreased 30 - 44 mL/min/1.73m2 Severely decreased 15 - 29 mL/min/1.73m2 Kidney Failure < 15 mL/min/1.73m2 *Relative to young adult level Estimated glomerular filtration rate is determined by the 2020 CKD-EPI equation recommended by the National Kidney Foundation (A Unifying Approach to GFR Estimation: Recommendations of the NKF-ASK Task Force on Reassessing the Inclusion of Race in Diagnosing Kidney Disease, JASN 2020). The CKD-EPI equation should not be used for patients with unstable renal function and has not been validated in children and those over 70. Current interpretive data was last reviewed 2021. Blood 01/26/2025 4:15 AM CDT 01/26/2025 4:46 AM CDT Gisselle Sheffield MD LAB BLOOD ORDERABLES Final Re sult Performing Organization Address [facility] [place] [address] * Tacrolimus level trough (01/26/2025 4:15 AM CDT) Tacrolimus trough 5.2 ng/mL Comment: Interpretive Data Testing performed by liquid chromatography-tandem mass spectrometry. Therapeutic concentrations vary depending on type of transplanted organ and time elapsed since transplant. Typical trough concentrations range from 5-15 ng/mL. This test was developed and its performance characteristics determined by the [facility] consistent with CLIA requirements. This test has not been cleared or approved by the US Food and Drug administration. Current interpretive data last reviewed 2020. Blood 01/26/2025 4:15 AM CDT 01/26/2025 4:46 AM CDT Narrative [facility] - 01/26/2025 8:29 AM CDT Please check before administering morning tacrolimus dose Gisselle Sheffield MD LAB BLOOD ORDERABLES Final Re sult Performing Organization Address [facility] [place] [address] * (ABNORMAL) CBC without differential (01/26/2025 4:15 AM CDT) WBC 8.1 3.8 - 9.9 K/cumm Hgb 7.5(L) 11.9 - 15.5 g/dL [facility] Hct 23.0(L) 35.6 - 45.5 % [facility] Plt 159 150 - 400 K/cumm [facility] MPV 8.8(L) 9.1 - 12.3 fL [facility] RBC 2.45(L) 3.90 - 5.20 M/cumm [facility] MCV 93.9 81.3 - 96.4 fL [facility] MCH 30.6 27.1 - 33.3 pg [facility] MCHC 32.6 32.3 - 35.7 g/dL [facility] RDW CV 16.3(H) 11.1 - 14.9 % [facility] RDW SD 55.8(H) 35.7 - 48.1 fL [facility] NRBC abs 0.00 0.00 - 0.01 K/cumm [facility] Blood 01/26/2025 4:15 AM CDT 01/26/2025 4:46 AM CDT Result [facility] Gisselle Sheffield MD LAB BLOOD ORDERABLES Final Re sult Performing Organization Address City/[facility]/ZIP Co de Phone Number [facility] [place] [address] * (ABNORMAL) Phosphorus (01/26/2025 4:15 AM CDT) Phosphorus, pl 4.6(H) 2.3 - 4.5 mg/dL Blood 01/26/2025 4:15 AM CDT 01/26/2025 4:46 AM CDT Result [facility] Gisselle Sheffield MD LAB BLOOD ORDERABLES Final Re sult [facility] [place] [address] * Magnesium (01/26/2025 4:15 AM CDT) Magnesium 2.4 1.4 - 2.5 mg/dL Blood 01/26/2025 4:15 AM CDT 01/26/2025 4:46 AM CDT Gisselle Sheffield MD LAB BLOOD ORDERABLES Final Re sult [facility] Department [place] [address] * (ABNORMAL) Basic metabolic panel (01/26/2025 4:15 AM CDT) Sodium 125(L) 135 - 145 mmol/L Potassium, pl 5.5(H) 3.3 - 4.9 mmol/L [facility] Chloride 88(L) 97 - 110 mmol/L [facility] CO2 25 22 - 32 mmol/L [facility] Anion gap 12 2 - 15 mmol/L [facility] BUN 114(H) 6 - 25 mg/dL [facility] Creatinine 2.73(H) 0.60 - 1.10 mg/dL [facility] Glucose 93 70 - 199 mg/dL [facility] Comment: Interpretive Data Fasting glucose >/= 126 mg/dl is diagnostic for diabetes. Fasting is defined as no caloric intake for at least 8 hours. Fasting glucose between 100 mg/dl to 125 mg/dl is diagnostic of prediabetes. In a patient with classic symptoms of hyperglycemia or hyperglycemic crisis, a random glucose >/= 200 mg/dl is diagnostic for diabetes. In the absence of unequivocal hyperglycemia, results should be confirmed by repeat testing. The classification and Diagnosis of Diabetes Diabetes Care 2021; 46: S19-S40. Current interpretive data was last revised 2022. Calcium 7.9(L) 8.5 - 10.3 mg/dL [facility] Blood 01/26/2025 4:15 AM CDT 01/26/2025 4:46 AM CDT Gisselle Sheffield MD LAB BLOOD ORDERABLES Final Re sult [facility] Department [place] [address] * (ABNORMAL) Sodium, whole blood (01/26/2025 12:05 AM CDT) Sodium, Whole Blood 123(L) 135 - 145 mmol/L Blood 01/26/2025 12:0 5 AM CDT 01/26/2025 1:16 AM CDT Klever Mejia MD LAB BLOOD ORDERABLES Final Result Performing Organization Address [facility] Phone Number [facility] [place] [address] * (ABNORMAL) Sodium, whole blood (01/25/2025 6:24 PM CDT) [facility] Sodium, Whole Blood 122(L) 135 - 145 mmol/L Blood 01/25/2025 6:24 PM CDT 01/25/2025 8:17 PM CDT Klever Mejia MD LAB BLOOD ORDERABLES Final Result Performing Organization Address [facility] Phone Number [facility] [place] [address] * Osmolality, urine (01/25/2025 6:24 PM CDT) [facility] Osmo, ur 304 mOsm/kg Urine 01/25/2025 6:24 PM CDT 01/25/2025 6:49 PM CDT Klever Mejia MD LAB URINE ORDERABLES Final Result Performing Organization Address [facility] [place] [address] * (ABNORMAL) Immunoglobulin free light chains (01/25/2025 4:17 PM CDT) [facility] [place]/Lambda ratio [facility] 0.85 0.26 - 1.65 Comment: Interpretive Data The Binding Site FreeLite assay procedure was used. Results from different manufacturers or methods may not be comparable. Serial testing should be performed using the same methods and instrumentation. Current Interpretive Data was last revised on 2024. [place] free light chain [facility] 8.65(H) 0.33 - 1.94 mg/dL [facility] Comment: Interpretive Data The Binding Site FreeLite assay procedure was used. Results from different manufacturers or methods may not be comparable. Serial testing should be performed using the same methods and instrumentation. Current Interpretive Data was last revised on 2024. Lambda free light chain [facility] 10.23(H) 0.57 - 2.63 mg/dL [facility] Comment: Interpretive Data The Binding Site FreeLite assay procedure was used. Results from different manufacturers or methods may not be comparable. Serial testing should be performed using the same methods and instrumentation. Current Interpretive Data was last revised on 2024. Blood 01/25/2025 4:17 PM CDT 01/25/2025 4:54 PM CDT Klever Mejia MD LAB BLOOD ORDERABLES Final Result [facility] Department [place] [address] * (ABNORMAL) Protein electrophoresis with reflex, serum with interpretation (01/25/2025 4:17 PM CDT) Protein, sr 6.0(L) 6.2 - 8.2 g/dL Albumin 3.1(L) 3.2 - 5.0 g/dL [facility] Alpha-1 globulin 0.4 0.2 - 0.4 g/dL [facility] Alpha-2 globulin 0.7 0.5 - 1.0 g/dL [facility] Beta-1 globulin 0.4 0.3 - 0.6 g/dL [facility] Beta-2 globulin 0.4 0.2 - 0.6 g/dL [facility] Gamma globulin 1.1 0.5 - 1.7 g/dL [facility] Rstr Pk Beta-2 0.1(H) 0.0 - 0.0 g/dL [facility] Rstr Pk Gamma 0.2(H) 0.0 - 0.0 g/dL [facility] SPEP interp Please see comment [facility] Comment: Abnormal restricted peak in Gamma region Abnormal restricted peak in beta 2 region Electrophoretic pattern appears similar to previous sample 05/16/2024 Reviewed and signed by Cameron Rider MD, PhD 01/27/2025 Blood 01/25/2025 4:17 PM CDT 01/25/2025 4:54 PM CDT Klever Mejia MD LAB BLOOD ORDERABLES Final Result Performing Organization Address [facility] Co de Phone Number [facility] [address] * Sodium, urine, random (01/25/2025 11:39 AM CDT) Sodium, ur <20 mmol/L Comment: Repeated and Verified Interpretive Data No reference range established. Current interpretive data was last revised 2019. Urine 01/25/2025 11:3 9 AM CDT 01/25/2025 11:51 AM CDT Klever Mejia MD LAB URINE ORDERABLES Final Result Performing Organization Address [facility] Co de Phone Number [facility] [address] * Potassium, urine, random (01/25/2025 11:39 AM CDT) Potassium conc, ur 21.5 mmol/L Comment: Interpretive Data No reference range established. Current interpretive data was last revised 2019. Urine 01/25/2025 11:3 9 AM CDT 01/25/2025 11:51 AM CDT Klever Mejia MD LAB URINE ORDERABLES Final Result Performing Organization Address City/[facility] Co de Phone Number [facility] [address] * Osmolality, urine (01/25/2025 11:39 AM CDT) Osmo, ur 275 mOsm/kg Urine 01/25/2025 11:3 9 AM CDT 01/25/2025 11:51 AM CDT Marino Wynn MD LAB URINE ORDERABLES Мария l Result Performing Organization Address City/[facility]/ZIP Co de Phone Number [facility] [place] [address] * (ABNORMAL) Sodium, whole blood (01/25/2025 11:06 AM CDT) [facility] Sodium, Whole Blood 124(L) 135 - 145 mmol/L Blood 01/25/2025 11:0 6 AM CDT 01/25/2025 11:51 AM CDT Klever Mejia MD LAB BLOOD ORDERABLES Final Result Performing Organization Address [facility] Co de Phone Number [facility] [address] * Osmolality, blood (01/25/2025 11:06 AM CDT) Osmo 295 275 - 300 mOsm/kg Blood 01/25/2025 11:0 6 AM CDT 01/25/2025 12:05 PM CDT Klever Mejia MD LAB BLOOD ORDERABLES Final Result Performing Organization Address [facility] Co de Phone Number [facility] [place] [address] * Potassium, whole blood (01/25/2025 10:15 AM CDT) Potassium, bld 4.5 3.3 - 4.9 mmol/L Blood 01/25/2025 10:1 5 AM CDT 01/25/2025 11:10 AM CDT Klever Mejia MD LAB BLOOD ORDERABLES Final Result Performing Organization Address City/[facility] Co de Phone Number [facility] [place] [address] * (ABNORMAL) eGFR (01/25/2025 10:15 AM CDT) eGFR 18(L) >=60 mL/min/1. 73 m2 Comment: Interpretive Data Reference Interval Normal >/= 90 mL/min/1.73m2 Mildly decreased* 60 - 89 mL/min/1.73m2 Mildly to moderately decreased 45 - 59 mL/min/1.73m2 Moderately to severely decreased 30 - 44 mL/min/1.73m2 Severely decreased 15 - 29 mL/min/1.73m2 Kidney Failure < 15 mL/min/1.73m2 *Relative to young adult level Estimated glomerular filtration rate is determined by the 2020 CKD-EPI equation recommended by the National Kidney Foundation (A Unifying Approach to GFR Estimation: Recommendations of the NKF-ASK Task Force on Reassessing the Inclusion of Race in Diagnosing Kidney Disease, JASN 2020). The CKD-EPI equation should not be used for patients with unstable renal function and has not been validated in children and those over 70. Current interpretive data was last reviewed 2021. Blood 01/25/2025 10:1 5 AM CDT 01/25/2025 11:13 AM CDT Klever Mejia MD LAB BLOOD ORDERABLES Final Result [facility] [place] [address] * (ABNORMAL) Basic metabolic panel (01/25/2025 10:15 AM CDT) Sodium 121(L) 135 - 145 mmol/L Potassium, pl 4.5 3.3 - 4.9 mmol/L [facility] Chloride 83(L) 97 - 110 mmol/L [facility] CO2 26 22 - 32 mmol/L [facility] Anion gap 12 2 - 15 mmol/L [facility] BUN 115(H) 6 - 25 mg/dL [facility] Creatinine 2.73(H) 0.60 - 1.10 mg/dL [facility] Glucose 159 70 - 199 mg/dL [facility] Comment: Interpretive Data Fasting glucose >/= 126 mg/dl is diagnostic for diabetes. Fasting is defined as no caloric intake for at least 8 hours. Fasting glucose between 100 mg/dl to 125 mg/dl is diagnostic of prediabetes. In a patient with classic symptoms of hyperglycemia or hyperglycemic crisis, a random glucose >/= 200 mg/dl is diagnostic for diabetes. In the absence of unequivocal hyperglycemia, results should be confirmed by repeat testing. The classification and Diagnosis of Diabetes Diabetes Care 2021; 46: S19-S40. Current interpretive data was last revised 2022. Calcium 7.8(L) 8.5 - 10.3 mg/dL [facility] Blood 01/25/2025 10:1 5 AM CDT 01/25/2025 11:13 AM CDT Klever Mejia MD LAB BLOOD ORDERABLES Final Result [facility] Department [place] [address] * (ABNORMAL) eGFR (01/25/2025 4:35 AM CDT) eGFR 17(L) >=60 mL/min/1. 73 m2 Comment: Interpretive Data Reference Interval Normal >/= 90 mL/min/1.73m2 Mildly decreased* 60 - 89 mL/min/1.73m2 Mildly to moderately decreased 45 - 59 mL/min/1.73m2 Moderately to severely decreased 30 - 44 mL/min/1.73m2 Severely decreased 15 - 29 mL/min/1.73m2 Kidney Failure < 15 mL/min/1.73m2 *Relative to young adult level Estimated glomerular filtration rate is determined by the 2020 CKD-EPI equation recommended by the National Kidney Foundation (A Unifying Approach to GFR Estimation: Recommendations of the NKF-ASK Task Force on Reassessing the Inclusion of Race in Diagnosing Kidney Disease, JASN 2020). The CKD-EPI equation should not be used for patients with unstable renal function and has not been validated in children and those over 70. Current interpretive data was last reviewed 2021. Blood 01/25/2025 4:35 AM CDT 01/25/2025 5:11 AM CDT Gisselle Sheffield MD LAB BLOOD ORDERABLES Final Re sult Performing Organization Address [facility] de Phone Number [facility] [place] [address] * Tacrolimus level trough (01/25/2025 4:35 AM CDT) Pathologist [facility] Tacrolimus trough 4.3 ng/mL Comment: Interpretive Data Testing performed by liquid chromatography-tandem mass spectrometry. Therapeutic concentrations vary depending on type of transplanted organ and time elapsed since transplant. Typical trough concentrations range from 5-15 ng/mL. This test was developed and its performance characteristics determined by the [facility] consistent with CLIA requirements. This test has not been cleared or approved by the US Food and Drug administration. Current interpretive data last reviewed 2020. Blood 01/25/2025 4:35 AM CDT 01/25/2025 5:12 AM CDT Narrative [facility] - 01/25/2025 8:45 AM CDT Please check before administering morning tacrolimus dose Gisselle Sheffield MD LAB BLOOD ORDERABLES Final Re sult Performing Organization Address [facility] Co de Phone Number [facility] [place] [address] * (ABNORMAL) Iron profile w/ IBC (01/25/2025 4:35 AM CDT) Pathologist [facility] Iron 34(L) 35 - 145 mcg/dL TIBC 149(L) 250 - 400 mcg/dL [facility] Transferrin saturation 23 20 - 50 % [facility] Blood 01/25/2025 4:35 AM CDT 01/25/2025 5:11 AM CDT Klever Mejia MD LAB BLOOD ORDERABLES Edite d Result - Final [facility] [place] [address] * (ABNORMAL) CBC without differential (01/25/2025 4:35 AM CDT) [facility] WBC 9.2 3.8 - 9.9 K/cumm Hgb 7.8(L) 11.9 - 15.5 g/dL [facility] Hct 23.7(L) 35.6 - 45.5 % [facility] Plt 171 150 - 400 K/cumm [facility] MPV 9.1 9.1 - 12.3 fL [facility] RBC 2.54(L) 3.90 - 5.20 M/cumm [facility] MCV 93.3 81.3 - 96.4 fL [facility] MCH 30.7 27.1 - 33.3 pg [facility] MCHC 32.9 32.3 - 35.7 g/dL [facility] RDW CV 16.5(H) 11.1 - 14.9 % [facility] RDW SD 56.5(H) 35.7 - 48.1 fL [facility] NRBC abs 0.00 0.00 - 0.01 K/cumm [facility] Blood 01/25/2025 4:35 AM CDT 01/25/2025 5:12 AM CDT Gisselle Sheffield MD LAB BLOOD ORDERABLES Final Re sult [facility] [place] [address] * (ABNORMAL) Phosphorus (01/25/2025 4:35 AM CDT) Pathologist [facility] Phosphorus, pl 4.7(H) 2.3 - 4.5 mg/dL Blood 01/25/2025 4:35 AM CDT 01/25/2025 5:11 AM CDT Gisselle Sheffield MD LAB BLOOD ORDERABLES Final Re sult Performing Organization Address City/State/[facility] Co de Phone Number [facility] [address] * Osmolality, blood (01/25/2025 4:35 AM CDT) [facility] Osmo 288 275 - 300 mOsm/kg Blood 01/25/2025 4:35 AM CDT 01/25/2025 5:11 AM CDT Klever Mejia MD LAB BLOOD ORDERABLES Final Result Performing Organization Address [facility] Co de Phone Number [facility] [place] [address] * Magnesium (01/25/2025 4:35 AM CDT) [facility] Magnesium 2.2 1.4 - 2.5 mg/dL Blood 01/25/2025 4:35 AM CDT 01/25/2025 5:11 AM CDT Gisselle Sheffield MD LAB BLOOD ORDERABLES Final Re sult Performing Organization Address [facility] Co de Phone Number [facility] [address] * Lactate dehydrogenase (LD) (01/25/2025 4:35 AM CDT) [facility] Lactate dehydrogenase (LDH) 242 100 - 250 Units/L Blood 01/25/2025 4:35 AM CDT 01/25/2025 5:11 AM CDT Klever Mejia MD LAB BLOOD ORDERABLES Edite d Result - Final Performing Organization Address [facility] Co de Phone Number [facility] [place] [address] * Haptoglobin (01/25/2025 4:35 AM CDT) Haptoglobin 126.0 30.0 - 200.0 mg/dL Blood 01/25/2025 4:35 AM CDT 01/25/2025 5:11 AM CDT Klever Mejia MD LAB BLOOD ORDERABLES Final Result Performing Organization Address [facility] Co de Phone Number [facility] [place] [address] * (ABNORMAL) Ferritin (01/25/2025 4:35 AM CDT) Pathologist [facility] Ferritin 841(H) 13 - 150 ng/mL Blood 01/25/2025 4:35 AM CDT 01/25/2025 5:11 AM CDT Klever Mejia MD LAB BLOOD ORDERABLES Edite d Result - Final Performing Organization Address [facility] Co de Phone Number [facility] [place] [address] * (ABNORMAL) Hepatic function panel (01/25/2025 4:35 AM CDT) Bilirubin, total 0.4 0.1 - 1.2 mg/dL Bilirubin, direct <0.2 0.1 - 0.3 mg/dL [facility] Protein, pl 6.1(L) 6.5 - 8.5 g/dL [facility] Albumin 3.1(L) 3.5 - 5.0 g/dL [facility] Alk phos 58 40 - 130 Units/L [facility] ALT 13 7 - 45 Units/L [facility] AST 19 10 - 45 Units/L [facility] Blood 01/25/2025 4:35 AM CDT 01/25/2025 5:11 AM CDT us Linda Harden MD LAB BLOOD ORDERABLES F inal Result [facility] [place] [address] * (ABNORMAL) Basic metabolic panel (01/25/2025 4:35 AM CDT) Sodium 121(L) 135 - 145 mmol/L Potassium, pl 5.3(H) 3.3 - 4.9 mmol/L [facility] Chloride 86(L) 97 - 110 mmol/L [facility] CO2 25 22 - 32 mmol/L [facility] Anion gap 10 2 - 15 mmol/L [facility] BUN 109(H) 6 - 25 mg/dL [facility] Creatinine 2.77(H) 0.60 - 1.10 mg/dL [facility] Glucose 73 70 - 199 mg/dL [facility] Comment: Interpretive Data Fasting glucose >/= 126 mg/dl is diagnostic for diabetes. Fasting is defined as no caloric intake for at least 8 hours. Fasting glucose between 100 mg/dl to 125 mg/dl is diagnostic of prediabetes. In a patient with classic symptoms of hyperglycemia or hyperglycemic crisis, a random glucose >/= 200 mg/dl is diagnostic for diabetes. In the absence of unequivocal hyperglycemia, results should be confirmed by repeat testing. The classification and Diagnosis of Diabetes Diabetes Care 202; 46: S19-S40. Current interpretive data was last revised 2022. Calcium 7.9(L) 8.5 - 10.3 mg/dL [facility] Blood 01/25/2025 4:35 AM CDT 01/25/2025 5:11 AM CDT Gisselle Sheffield MD LAB BLOOD ORDERABLES Final Re sult Performing Organization Address City/[facility]/ZIP Co de Phone Number [facility] [place] [address] * Infection Prevention Pancho auris PCR, surveillance Axilla/Groin (01/24/2025 9:10 AM CDT) Pancho auris DNA Not Detected Not Detected [facility] Comment: Interpretive Data Testing performed by [facility] using the Luz viji [id number] Pancho auris assay. This assay detects DNA from Pancho auris using Real-Time PCR. This assay is laboratory developed and is not cleared by the [facility] Food and Drug Administration. The performance characteristics have been verified by the [facility]. Axilla/Groin 01/24/2025 9:10 AM CDT 01/24/2025 9:43 AM CDT us Hoang Son MD LAB MICROBIOLOGY - GENERAL ORDER FILI Final Result Performing Organization Address [facility] Co de Phone Number [facility] [place] [address] [facility] * (ABNORMAL) eGFR (01/24/2025 5:43 AM CDT) eGFR 18(L) >=60 mL/min/1. 73 m2 Comment: Interpretive Data Reference Interval Normal >/= 90 mL/min/1.73m2 Mildly decreased* 60 - 89 mL/min/1.73m2 Mildly to moderately decreased 45 - 59 mL/min/1.73m2 Moderately to severely decreased 30 - 44 mL/min/1.73m2 Severely decreased 15 - 29 mL/min/1.73m2 Kidney Failure < 15 mL/min/1.73m2 *Relative to young adult level Estimated glomerular filtration rate is determined by the 2020 CKD-EPI equation recommended by the National Kidney Foundation (A Unifying Approach to GFR Estimation: Recommendations of the NKF-ASK Task Force on Reassessing the Inclusion of Race in Diagnosing Kidney Disease, JASN 2020). The CKD-EPI equation should not be used for patients with unstable renal function and has not been validated in children and those over 70. Current interpretive data was last reviewed 2021. Blood 01/24/2025 5:43 AM CDT 01/24/2025 6:20 AM CDT Gisselle Sheffield MD LAB BLOOD ORDERABLES Final Re sult Performing Organization Address [facility] Co de Phone Number [facility] [place] [address] * Tacrolimus level trough (01/24/2025 5:43 AM CDT) Pathologist [facility] Tacrolimus trough 3.2 ng/mL Comment: Interpretive Data Testing performed by liquid chromatography-tandem mass spectrometry. Therapeutic concentrations vary depending on type of transplanted organ and time elapsed since transplant. Typical trough concentrations range from 5-15 ng/mL. This test was developed and its performance characteristics determined by the [facility] consistent with CLIA requirements. This test has not been cleared or approved by the US Food and Drug administration. Current interpretive data last reviewed 2020. Blood 01/24/2025 5:43 AM CDT 01/24/2025 6:20 AM CDT Narrative [facility] - 01/24/2025 11:05 AM CDT Please check before administering morning tacrolimus dose Gisselle Sheffield MD LAB BLOOD ORDERABLES Final Re sult Performing Organization Address [facility] Co de Phone Number [facility] [place] [address] * (ABNORMAL) CBC without differential (01/24/2025 5:43 AM CDT) Pathologist [facility] WBC 7.1 3.8 - 9.9 K/cumm Hgb 7.2(L) 11.9 - 15.5 g/dL [facility] Hct 22.1(L) 35.6 - 45.5 % [facility] Plt 150 150 - 400 K/cumm [facility] MPV 9.0(L) 9.1 - 12.3 fL [facility] RBC 2.37(L) 3.90 - 5.20 M/cumm [facility] MCV 93.2 81.3 - 96.4 fL [facility] MCH 30.4 27.1 - 33.3 pg [facility] MCHC 32.6 32.3 - 35.7 g/dL [facility] RDW CV 16.5(H) 11.1 - 14.9 % [facility] RDW SD 56.0(H) 35.7 - 48.1 fL [facility] NRBC abs 0.00 0.00 - 0.01 K/cumm [facility] Blood 01/24/2025 5:43 AM CDT 01/24/2025 6:20 AM CDT Gisselle Sheffield MD LAB BLOOD ORDERABLES Final Re sult [facility] [place] [address] * (ABNORMAL) Phosphorus (01/24/2025 5:43 AM CDT) Phosphorus, pl 5.1(H) 2.3 - 4.5 mg/dL Blood 01/24/2025 5:43 AM CDT 01/24/2025 6:20 AM CDT Gisselle Sheffield MD LAB BLOOD ORDERABLES Final Re sult [facility] [place] [address] * Magnesium (01/24/2025 5:43 AM CDT) Magnesium 2.3 1.4 - 2.5 mg/dL Blood 01/24/2025 5:43 AM CDT 01/24/2025 6:20 AM CDT Gisselle Sheffield MD LAB BLOOD ORDERABLES Final Re sult [facility] [place] [address] * (ABNORMAL) Basic metabolic panel (01/24/2025 5:43 AM CDT) [facility] Sodium 124(L) 135 - 145 mmol/L Potassium, pl 4.9 3.3 - 4.9 mmol/L [facility] Chloride 87(L) 97 - 110 mmol/L [facility] CO2 27 22 - 32 mmol/L [facility] Anion gap 10 2 - 15 mmol/L [facility] BUN 100(H) 6 - 25 mg/dL [facility] Creatinine 2.72(H) 0.60 - 1.10 mg/dL [facility] Glucose 71 70 - 199 mg/dL [facility] Comment: Interpretive Data Fasting glucose >/= 126 mg/dl is diagnostic for diabetes. Fasting is defined as no caloric intake for at least 8 hours. Fasting glucose between 100 mg/dl to 125 mg/dl is diagnostic of prediabetes. In a patient with classic symptoms of hyperglycemia or hyperglycemic crisis, a random glucose >/= 200 mg/dl is diagnostic for diabetes. In the absence of unequivocal hyperglycemia, results should be confirmed by repeat testing. The classification and Diagnosis of Diabetes Diabetes Care 2021; 46: S19-S40. Current interpretive data was last revised 2022. Calcium 7.2(L) 8.5 - 10.3 mg/dL [facility] Blood 01/24/2025 5:43 AM CDT 01/24/2025 6:20 AM CDT Gisselle Sheffield MD LAB BLOOD ORDERABLES Final Re sult Performing Organization Address [facility]/ZIP Co de Phone Number [facility] [place] [address] * (ABNORMAL) eGFR (01/23/2025 6:05 AM CDT) eGFR 16(L) >=60 mL/min/1. 73 m2 Comment: Interpretive Data Reference Interval Normal >/= 90 mL/min/1.73m2 Mildly decreased* 60 - 89 mL/min/1.73m2 Mildly to moderately decreased 45 - 59 mL/min/1.73m2 Moderately to severely decreased 30 - 44 mL/min/1.73m2 Severely decreased 15 - 29 mL/min/1.73m2 Kidney Failure < 15 mL/min/1.73m2 *Relative to young adult level Estimated glomerular filtration rate is determined by the 2020 CKD-EPI equation recommended by the National Kidney Foundation (A Unifying Approach to GFR Estimation: Recommendations of the NKF-ASK Task Force on Reassessing the Inclusion of Race in Diagnosing Kidney Disease, JASN 2020). The CKD-EPI equation should not be used for patients with unstable renal function and has not been validated in children and those over 70. Current interpretive data was last reviewed 2021. Blood 01/23/2025 6:05 AM CDT 01/23/2025 6:47 AM CDT us Gisselle Sheffield MD LAB BLOOD ORDERABLES Final Re sult [facility] Department [place] [address] * Tacrolimus level trough (01/23/2025 6:05 AM CDT) Tacrolimus trough 3.7 ng/mL Comment: Interpretive Data Testing performed by liquid chromatography-tandem mass spectrometry. Therapeutic concentrations vary depending on type of transplanted organ and time elapsed since transplant. Typical trough concentrations range from 5-15 ng/mL. This test was developed and its performance characteristics determined by the [facility] consistent with CLIA requirements. This test has not been cleared or approved by the US Food and Drug administration. Current interpretive data last reviewed 2020. Blood 01/23/2025 6:05 AM CDT 01/23/2025 6:47 AM CDT Narrative [facility] - 01/23/2025 10:42 AM CDT Please check before administering morning tacrolimus dose Gisselle Sheffield MD LAB BLOOD ORDERABLES Final Re sult Performing Organization Address [facility] Co de Phone Number [facility] [place] [address] * (ABNORMAL) CBC without differential (01/23/2025 6:05 AM CDT) [facility] WBC 8.3 3.8 - 9.9 K/cumm Hgb 7.6(L) 11.9 - 15.5 g/dL [facility] Hct 23.7(L) 35.6 - 45.5 % [facility] Plt 165 150 - 400 K/cumm [facility] MPV 9.0(L) 9.1 - 12.3 fL [facility] RBC 2.53(L) 3.90 - 5.20 M/cumm [facility] MCV 93.7 81.3 - 96.4 fL [facility] MCH 30.0 27.1 - 33.3 pg [facility] MCHC 32.1(L) 32.3 - 35.7 g/dL [facility] RDW CV 16.5(H) 11.1 - 14.9 % [facility] RDW SD 56.8(H) 35.7 - 48.1 fL [facility] NRBC abs 0.00 0.00 - 0.01 K/cumm [facility] Blood 01/23/2025 6:05 AM CDT 01/23/2025 6:47 AM CDT Gisselle Sheffield MD LAB BLOOD ORDERABLES Final Re sult Performing Organization Address [facility]/ZIP Co de Phone Number [facility] [place] [address] * Type and screen (01/23/2025 6:05 AM CDT) [facility] ABO Rh B Positive Demetria, indirect Negative [facility] Blood 01/23/2025 6:05 AM CDT 01/23/2025 7:12 AM CDT Narrative [facility] - 01/23/2025 8:09 AM CDT Has the patient had Daratumumab or Isatuximab in the past 6 months?->Unknown Gisselle Sheffield MD LAB BLOOD BANK TEST ORDERABLE S Final Result Performing Organization Address [facility] Co de Phone Number [facility] [place] [address] * (ABNORMAL) Phosphorus (01/23/2025 6:05 AM CDT) Pathologist [facility] Phosphorus, pl 5.1(H) 2.3 - 4.5 mg/dL Blood 01/23/2025 6:05 AM CDT 01/23/2025 6:47 AM CDT Gisselle Sheffield MD LAB BLOOD ORDERABLES Final Re sult Performing Organization Address [facility] Co de Phone Number [facility] [place] [address] * Osmolality, blood (01/23/2025 6:05 AM CDT) [facility] Osmo 294 275 - 300 mOsm/kg Blood 01/23/2025 6:05 AM CDT 01/23/2025 6:47 AM CDT Gisselle Sheffield MD LAB BLOOD ORDERABLES Final Re sult Performing Organization Address [facility] Co de Phone Number [facility] [address] * Magnesium (01/23/2025 6:05 AM CDT) [facility] Magnesium 2.3 1.4 - 2.5 mg/dL Blood 01/23/2025 6:05 AM CDT 01/23/2025 6:47 AM CDT Gisselle Sheffield MD LAB BLOOD ORDERABLES Final Re sult Performing Organization Address [facility]/ZIP Co de Phone Number [facility] [place] [address] * (ABNORMAL) Basic metabolic panel (01/23/2025 6:05 AM CDT) [facility] Sodium 125(L) 135 - 145 mmol/L Potassium, pl 5.0(H) 3.3 - 4.9 mmol/L [facility] Chloride 87(L) 97 - 110 mmol/L [facility] CO2 27 22 - 32 mmol/L [facility] Anion gap 11 2 - 15 mmol/L [facility] BUN 100(H) 6 - 25 mg/dL [facility] Creatinine 2.91(H) 0.60 - 1.10 mg/dL [facility] Glucose 76 70 - 199 mg/dL [facility] Comment: Interpretive Data Fasting glucose >/= 126 mg/dl is diagnostic for diabetes. Fasting is defined as no caloric intake for at least 8 hours. Fasting glucose between 100 mg/dl to 125 mg/dl is diagnostic of prediabetes. In a patient with classic symptoms of hyperglycemia or hyperglycemic crisis, a random glucose >/= 200 mg/dl is diagnostic for diabetes. In the absence of unequivocal hyperglycemia, results should be confirmed by repeat testing. The classification and Diagnosis of Diabetes Diabetes Care 2021; 46: S19-S40. Current interpretive data was last revised 2022. Calcium 7.3(L) 8.5 - 10.3 mg/dL [facility] Blood 01/23/2025 6:05 AM CDT 01/23/2025 6:47 AM CDT Gisselle Sheffield MD LAB BLOOD ORDERABLES Final Re sult Performing Organization Address [facility]/ZIP Co de Phone Number [facility] Department [place] [address] * Cardiology Document Scan (01/23/2025) Anatomical Region Laterality Modality Other us Provider Scanning CV CARDIAC SERVICES PROCEDURES Final Result * (ABNORMAL) Urinalysis reflex to microscopic and culture Urine (01/22/2025 6:06 PM CDT) Color, ur Straw Yellow Clarity, ur Clear Clear [facility] Specific gravity, ur 1.009 1.003 - 1.030 [facility] pH, urine 6.0 [facility] Comment: Interpretive Data U rine pH is affected by diet, medications, systemic acid-base disturbances, and renal tubular function. pH may affect urinary stone formation. For example, urine pH below 6.0 may help reduce the tendency for calcium phosphate stones and pH greater than 6.0 may reduce the tendency for uric acid stone formation. Source: [facility] Current Interpretive Data was last revised on 2017 Protein, ur ql Negative Negative [facility] Glucose, ur ql Negative Negative [facility] Ketones, ur Negative Negative [facility] Bilirubin, ur Negative Negative [facility] Blood, ur Negative Negative [facility] Urobilinogen, ur <2.0 <2.0 mg/dL [facility] Nitrite, ur Negative Negative [facility] Leukocyte esterase, ur 2+(A) Negative [facility] UA reflex comment Reflex to microscopic UA will be performed. [facility] Urine 01/22/2025 6:06 PM CDT 01/22/2025 6:38 PM CDT Gisselle Sheffield MD LAB MICROBIOLOGY - GENERAL OR DERABLES Final Result [facility] Department [place] [address] * (ABNORMAL) Urinalysis, microscopic only (01/22/2025 6:06 PM CDT) WBC, ur 6-10(A) 0 - 5 /HPF RBC, ur 0-2 0 - 2 /HPF [facility] Epithelial cells, squamous, ur 1-5 0 - 5 /HPF [facility] Bacteria, ur 1+(A) [facility] Mucous, ur Present(A) [facility] Hyaline casts, ur 6-10 0 - 10 /LPF [facility] Culture Reflex Comment Reflex conditions for urine culture (WBC >10) not met. [facility] Urine 01/22/2025 6:06 PM CDT 01/22/2025 6:38 PM CDT Gisselle Sheffield MD LAB URINE ORDERABLES Final Re sult Performing Organization Address [facility] de Phone Number [facility] [place] [address] * Urea nitrogen, urine, random (01/22/2025 5:08 PM CDT) Urea nitrogen, ur 290 mg/dL Comment: Interpretive Data No reference range established. Current interpretive data was last revised 2019. Urine 01/22/2025 5:08 PM CDT 01/22/2025 5:40 PM CDT Gisselle Sheffield MD LAB URINE ORDERABLES Final Re sult Performing Organization Address [facility] de Phone Number [facility] [place] [address] * Sodium, urine, random (01/22/2025 5:08 PM CDT) Sodium, ur 42 mmol/L Comment: Interpretive Data No reference range established. Current interpretive data was last revised 2019. Urine 01/22/2025 5:08 PM CDT 01/22/2025 5:40 PM CDT Gisselle Sheffield MD LAB URINE ORDERABLES Final Re sult Performing Organization Address [facility] de Phone Number [facility] [place] [address] * Potassium, urine, random (01/22/2025 5:08 PM CDT) Potassium conc, ur 25.0 mmol/L Comment: Interpretive Data No reference range established. Current interpretive data was last revised 2019. Urine 01/22/2025 5:08 PM CDT 01/22/2025 5:47 PM CDT Gisselle Sheffield MD LAB URINE ORDERABLES Final Re sult Performing Organization Address [facility] de Phone Number [facility] [place] [address] * Osmolality, urine (01/22/2025 5:08 PM CDT) Osmo, ur 243 mOsm/kg Urine 01/22/2025 5:08 PM CDT 01/22/2025 5:40 PM CDT Gisselle Sheffield MD LAB URINE ORDERABLES Final Re sult Performing Organization Address [facility] de Phone Number [facility] [place] [address] * Creatinine, urine, random (01/22/2025 5:08 PM CDT) Creatinine Ur 32.6 mg/dL Comment: Interpretive Data No reference range established. Current interpretive data was last revised 2019. Urine 01/22/2025 5:08 PM CDT 01/22/2025 5:40 PM CDT Gisselle Sheffield MD LAB URINE ORDERABLES Final Re sult Performing Organization Address [facility] de Phone Number [facility] [place] [address] * US Renal Transplant W Dopplers (01/22/2025 4:16 PM CDT) Anatomical Region Laterality Modality Kidney N/A Ultrasound 01/22/2025 4:34 PM CDT Impressions 01/22/2025 4:37 PM CDT 1. Upper normal resistive indices with no Doppler evidence of transplant renal artery stenosis. 2. Normal transplant kidney morphology without hydronephrosis. Dictated by: Davy Starr M.D. ([place]) The radiology attending physician has personally reviewed this study, and had reviewed and/or edited this written report and agrees with it. Electronically signed by: Andre Cornejo M.D. Narrative 01/22/2025 4:37 PM CDT EXAMINATION: RENAL TRANSPLANT ULTRASOUND WITH DOPPLER HISTORY: 74-year-old female with acute kidney failure and hyperkalemia, underwent nephrectomy for renal cell carcinoma with renal transplantation in 2011. COMPARISON: 01/12/2025 ultrasound FINDINGS: The right iliac fossa transplant kidney measures 10 cm in length. Echogenicity is normal. There is no hydronephrosis. There are no renal calculi visualized. No perinephric fluid collection is seen. Bladder: The urinary bladder is normal Color Doppler and spectral analysis were used to evaluate the renal vasculature. Resistive indices in the transplant segmental arteries range from 0.73 to 0.79, and are on the upper limits of normal, and not appreciably changed from the comparison exam. No focal flow abnormalities were seen in the transplant renal artery on color Doppler. The peak systolic velocities at the origin, mid aspect, and hilum of the transplant renal artery are 124 cm/sec, 94 cm/sec, and 41 cm/sec, respectively. The proximal external iliac artery peak systolic velocity is 107 cm/sec. The visualized portions of the transplant renal vein are patent. There is no thrombosis. Procedure Note Andre Cornejo MD - 01/22/2025 EXAMINATION: RENAL TRANSPLANT ULTRASOUND WITH DOPPLER HISTORY: 74-year-old female with acute kidney failure and hyperkalemia, underwent nephrectomy for renal cell carcinoma with renal transplantation in 2011. COMPARISON: 01/12/2025 ultrasound FINDINGS: The right iliac fossa transplant kidney measures 10 cm in length. Echogenicity is normal. There is no hydronephrosis. There are no renal calculi visualized. No perinephric fluid collection is seen. Bladder: The urinary bladder is normal Color Doppler and spectral analysis were used to evaluate the renal vasculature. Resistive indices in the transplant segmental arteries range from 0.73 to 0.79, and are on the upper limits of normal, and not appreciably changed from the comparison exam. No focal flow abnormalities were seen in the transplant renal artery on color Doppler. The peak systolic velocities at the origin, mid aspect, and hilum of the transplant renal artery are 124 cm/sec, 94 cm/sec, and 41 cm/sec, respectively. The proximal external iliac artery peak systolic velocity is 107 cm/sec. The visualized portions of the transplant renal vein are patent. There is no thrombosis. IMPRESSION: 1. Upper normal resistive indices with no Doppler evidence of transplant renal artery stenosis. 2. Normal transplant kidney morphology without hydronephrosis. Dictated by: Davy Starr M.D. ([place]) The radiology attending physician has personally reviewed this study, and had reviewed and/or edited this written report and agrees with it. Electronically signed by: Andre Cornejo M.D. us Gisselle Sheffield MD IMG US PROCEDURES Final Resul t * (ABNORMAL) eGFR (01/22/2025 3:12 PM CDT) eGFR 18(L) >=60 mL/min/1. 73 m2 Comment: Interpretive Data Reference Interval Normal >/= 90 mL/min/1.73m2 Mildly decreased* 60 - 89 mL/min/1.73m2 Mildly to moderately decreased 45 - 59 mL/min/1.73m2 Moderately to severely decreased 30 - 44 mL/min/1.73m2 Severely decreased 15 - 29 mL/min/1.73m2 Kidney Failure < 15 mL/min/1.73m2 *Relative to young adult level Estimated glomerular filtration rate is determined by the 2020 CKD-EPI equation recommended by the National Kidney Foundation (A Unifying Approach to GFR Estimation: Recommendations of the NKF-ASK Task Force on Reassessing the Inclusion of Race in Diagnosing Kidney Disease, JASN 2020). The CKD-EPI equation should not be used for patients with unstable renal function and has not been validated in children and those over 70. Current interpretive data was last reviewed 2021. Blood 01/22/2025 3:12 PM CDT 01/22/2025 3:51 PM CDT us Gisselle Sheffield MD LAB BLOOD ORDERABLES Final Re sult [facility] [place] [address] * (ABNORMAL) Renal function panel (01/22/2025 3:12 PM CDT) Pathologist [facility] Sodium 123(L) 135 - 145 mmol/L Potassium, pl 4.9 3.3 - 4.9 mmol/L [facility] Chloride 85(L) 97 - 110 mmol/L [facility] CO2 27 22 - 32 mmol/L [facility] Anion gap 11 2 - 15 mmol/L [facility] BUN 97(H) 6 - 25 mg/dL [facility] Creatinine 2.72(H) 0.60 - 1.10 mg/dL [facility] Glucose 156 70 - 199 mg/dL [facility] Comment: Interpretive Data Fasting glucose >/= 126 mg/dl is diagnostic for diabetes. Fasting is defined as no caloric intake for at least 8 hours. Fasting glucose between 100 mg/dl to 125 mg/dl is diagnostic of prediabetes. In a patient with classic symptoms of hyperglycemia or hyperglycemic crisis, a random glucose >/= 200 mg/dl is diagnostic for diabetes. In the absence of unequivocal hyperglycemia, results should be confirmed by repeat testing. The classification and Diagnosis of Diabetes Diabetes Care 202; 46: S19-S40. Current interpretive data was last revised 2022. Calcium 7.4(L) 8.5 - 10.3 mg/dL [facility] Phosphorus, pl 4.9(H) 2.3 - 4.5 mg/dL [facility] Albumin 3.1(L) 3.5 - 5.0 g/dL [facility] Blood 01/22/2025 3:12 PM CDT 01/22/2025 3:51 PM CDT us Gisselle Sheffield MD LAB BLOOD ORDERABLES Final Re sult [facility] [place] [address] * Collection Task for HLA Antibody Screen (01/22/2025 5:05 AM CDT) HLA Antibody Screen By Single Antigen Received Blood 01/22/2025 5:05 AM CDT 01/22/2025 8:01 AM CDT us Kalpana Khan NP LAB BLOOD ORDERABLES Final R esult Performing Organization Address [facility] Co de Phone Number [facility] [place] [address] * (ABNORMAL) eGFR (01/22/2025 5:05 AM CDT) eGFR 18(L) >=60 mL/min/1. 73 m2 Comment: Interpretive Data Reference Interval Normal >/= 90 mL/min/1.73m2 Mildly decreased* 60 - 89 mL/min/1.73m2 Mildly to moderately decreased 45 - 59 mL/min/1.73m2 Moderately to severely decreased 30 - 44 mL/min/1.73m2 Severely decreased 15 - 29 mL/min/1.73m2 Kidney Failure < 15 mL/min/1.73m2 *Relative to young adult level Estimated glomerular filtration rate is determined by the 2020 CKD-EPI equation recommended by the National Kidney Foundation (A Unifying Approach to GFR Estimation: Recommendations of the NKF-ASK Task Force on Reassessing the Inclusion of Race in Diagnosing Kidney Disease, JASN 2020). The CKD-EPI equation should not be used for patients with unstable renal function and has not been validated in children and those over 70. Current interpretive data was last reviewed 2021. Blood 01/22/2025 5:05 AM CDT 01/22/2025 6:03 AM CDT Gisselle Sheffield MD LAB BLOOD ORDERABLES Final Re sult Performing Organization Address [facility] Co de Phone Number [facility] [place] [address] * Tacrolimus level trough (01/22/2025 5:05 AM CDT) [facility] Tacrolimus trough 3.9 ng/mL Comment: Interpretive Data Testing performed by liquid chromatography-tandem mass spectrometry. Therapeutic concentrations vary depending on type of transplanted organ and time elapsed since transplant. Typical trough concentrations range from 5-15 ng/mL. This test was developed and its performance characteristics determined by the [facility] consistent with CLIA requirements. This test has not been cleared or approved by the US Food and Drug administration. Current interpretive data last reviewed 2020. Blood 01/22/2025 5:05 AM CDT 01/22/2025 6:03 AM CDT Narrative [facility] - 01/22/2025 9:38 AM CDT Please check before administering morning tacrolimus dose Gisselle Sheffield MD LAB BLOOD ORDERABLES Final Re sult Performing Organization Address [facility] de Phone Number [facility] [place] [address] * (ABNORMAL) CBC without differential (01/22/2025 5:05 AM CDT) [facility] WBC 8.5 3.8 - 9.9 K/cumm Hgb 7.3(L) 11.9 - 15.5 g/dL [facility] Hct 22.8(L) 35.6 - 45.5 % [facility] Plt 152 150 - 400 K/cumm [facility] MPV 9.3 9.1 - 12.3 fL [facility] RBC 2.42(L) 3.90 - 5.20 M/cumm [facility] MCV 94.2 81.3 - 96.4 fL [facility] MCH 30.2 27.1 - 33.3 pg [facility] MCHC 32.0(L) 32.3 - 35.7 g/dL [facility] RDW CV 16.3(H) 11.1 - 14.9 % [facility] RDW SD 56.0(H) 35.7 - 48.1 fL [facility] NRBC abs 0.00 0.00 - 0.01 K/cumm [facility] Blood 01/22/2025 5:05 AM CDT 01/22/2025 6:03 AM CDT Gisselle Sheffield MD LAB BLOOD ORDERABLES Final Re sult Performing Organization Address [facility] de Phone Number [facility] Department [place] [address] * (ABNORMAL) Phosphorus (01/22/2025 5:05 AM CDT) Phosphorus, pl 5.0(H) 2.3 - 4.5 mg/dL Blood 01/22/2025 5:05 AM CDT 01/22/2025 6:03 AM CDT Gisselle Sheffield MD LAB BLOOD ORDERABLES Final Re sult Performing Organization Address [facility] de Phone Number [facility] [place] [address] * Magnesium (01/22/2025 5:05 AM CDT) Magnesium 2.4 1.4 - 2.5 mg/dL Blood 01/22/2025 5:05 AM CDT 01/22/2025 6:03 AM CDT Gisselle Sheffield MD LAB BLOOD ORDERABLES Final Re sult Performing Organization Address [facility] Phone Number [facility] [place] [address] * (ABNORMAL) Basic metabolic panel (01/22/2025 5:05 AM CDT) Sodium 124(L) 135 - 145 mmol/L Potassium, pl 5.3(H) 3.3 - 4.9 mmol/L [facility] Chloride 87(L) 97 - 110 mmol/L [facility] CO2 27 22 - 32 mmol/L [facility] Anion gap 10 2 - 15 mmol/L [facility] BUN 96(H) 6 - 25 mg/dL [facility] Creatinine 2.73(H) 0.60 - 1.10 mg/dL [facility] Glucose 93 70 - 199 mg/dL [facility] Comment: Interpretive Data Fasting glucose >/= 126 mg/dl is diagnostic for diabetes. Fasting is defined as no caloric intake for at least 8 hours. Fasting glucose between 100 mg/dl to 125 mg/dl is diagnostic of prediabetes. In a patient with classic symptoms of hyperglycemia or hyperglycemic crisis, a random glucose >/= 200 mg/dl is diagnostic for diabetes. In the absence of unequivocal hyperglycemia, results should be confirmed by repeat testing. The classification and Diagnosis of Diabetes Diabetes Care 2021; 46: S19-S40. Current interpretive data was last revised 2022. Calcium 6.9(L) 8.5 - 10.3 mg/dL [facility] Blood 01/22/2025 5:05 AM CDT 01/22/2025 6:03 AM CDT us Gisselle Sheffield MD LAB BLOOD ORDERABLES Final Re sult [facility] [place] [address] * HLA Donor Specific Antibody Report (01/22/2025 5:02 AM CDT) us Kalpana Khan NP LAB BLOOD ORDERABLES Final R esult * HLA Antibody Screen - DSA (Class I and Class II) (01/22/2025 5:02 AM CDT) Blood 01/22/2025 5:02 AM CDT 01/23/2025 8:04 AM CDT Narrative [facility] - 01/23/2025 8:04 AM CDT us Kalpana Khan MEDIA ANALYST LAB BLOOD ORDERABLES Final R esult [facility] * (ABNORMAL) eGFR (01/21/2025 8:14 AM CDT) eGFR 20(L) >=60 mL/min/1. 73 m2 Comment: Interpretive Data Reference Interval Normal >/= 90 mL/min/1.73m2 Mildly decreased* 60 - 89 mL/min/1.73m2 Mildly to moderately decreased 45 - 59 mL/min/1.73m2 Moderately to severely decreased 30 - 44 mL/min/1.73m2 Severely decreased 15 - 29 mL/min/1.73m2 Kidney Failure < 15 mL/min/1.73m2 *Relative to young adult level Estimated glomerular filtration rate is determined by the 2020 CKD-EPI equation recommended by the National Kidney Foundation (A Unifying Approach to GFR Estimation: Recommendations of the NKF-ASK Task Force on Reassessing the Inclusion of Race in Diagnosing Kidney Disease, JASN 2020). The CKD-EPI equation should not be used for patients with unstable renal function and has not been validated in children and those over 70. Current interpretive data was last reviewed 2021. Blood 01/21/2025 8:14 AM CDT 01/21/2025 9:02 AM CDT us Dian Vilchis MD LAB BLOOD ORDERABLES Final Result [facility] [place] [address] * Tacrolimus level trough (01/21/2025 8:14 AM CDT) Tacrolimus trough 3.8 ng/mL Comment: Interpretive Data Testing performed by liquid chromatography-tandem mass spectrometry. Therapeutic concentrations vary depending on type of transplanted organ and time elapsed since transplant. Typical trough concentrations range from 5-15 ng/mL. This test was developed and its performance characteristics determined by the [facility] consistent with CLIA requirements. This test has not been cleared or approved by the US Food and Drug administration. Current interpretive data last reviewed 2020. Blood 01/21/2025 8:14 AM CDT 01/21/2025 9:02 AM CDT Narrative [facility] - 01/21/2025 12:03 PM CDT Draw exactly 12 HOURS after last dose of tacrolimus was given and just BEFORE giving next dose Dian Vilchis MD LAB BLOOD ORDERABLES Final Result [facility] Department [place] [address] * (ABNORMAL) CBC without differential (01/21/2025 8:14 AM CDT) WBC 8.1 3.8 - 9.9 K/cumm Hgb 7.7(L) 11.9 - 15.5 g/dL [facility] Hct 23.8(L) 35.6 - 45.5 % [facility] Plt 161 150 - 400 K/cumm [facility] MPV 9.1 9.1 - 12.3 fL [facility] RBC 2.49(L) 3.90 - 5.20 M/cumm [facility] MCV 95.6 81.3 - 96.4 fL [facility] MCH 30.9 27.1 - 33.3 pg [facility] MCHC 32.4 32.3 - 35.7 g/dL [facility] RDW CV 16.4(H) 11.1 - 14.9 % [facility] RDW SD 57.3(H) 35.7 - 48.1 fL [facility] NRBC abs 0.00 0.00 - 0.01 K/cumm [facility] Blood 01/21/2025 8:14 AM CDT 01/21/2025 9:02 AM CDT Dian Vilchis MD LAB BLOOD ORDERABLES Final Result Performing Organization Address City/State/[facility] Co de Phone Number [facility] [place] [address] * Magnesium (01/21/2025 8:14 AM CDT) Pathologist [facility] Magnesium 2.3 1.4 - 2.5 mg/dL Blood 01/21/2025 8:14 AM CDT 01/21/2025 9:02 AM CDT Dian Vilchis MD LAB BLOOD ORDERABLES Final Result Performing Organization Address [facility] de Phone Number [facility] Department [place] [address] * (ABNORMAL) Renal function panel (01/21/2025 8:14 AM CDT) Pathologist [facility] Sodium 128(L) 135 - 145 mmol/L Potassium, pl 5.1(H) 3.3 - 4.9 mmol/L [facility] Chloride 91(L) 97 - 110 mmol/L [facility] CO2 27 22 - 32 mmol/L [facility] Anion gap 10 2 - 15 mmol/L [facility] BUN 99(H) 6 - 25 mg/dL [facility] Creatinine 2.47(H) 0.60 - 1.10 mg/dL [facility] Glucose 78 70 - 199 mg/dL [facility] Comment: Interpretive Data Fasting glucose >/= 126 mg/dl is diagnostic for diabetes. Fasting is defined as no caloric intake for at least 8 hours. Fasting glucose between 100 mg/dl to 125 mg/dl is diagnostic of prediabetes. In a patient with classic symptoms of hyperglycemia or hyperglycemic crisis, a random glucose >/= 200 mg/dl is diagnostic for diabetes. In the absence of unequivocal hyperglycemia, results should be confirmed by repeat testing. The classification and Diagnosis of Diabetes Diabetes Care 202; 46: S19-S40. Current interpretive data was last revised 2022. Calcium 6.7(L) 8.5 - 10.3 mg/dL [facility] Phosphorus, pl 4.8(H) 2.3 - 4.5 mg/dL [facility] Albumin 3.1(L) 3.5 - 5.0 g/dL [facility] Blood 01/21/2025 8:14 AM CDT 01/21/2025 9:02 AM CDT Dian Vilchis MD LAB BLOOD ORDERABLES Final Result Performing Organization Address [facility] Co de Phone Number [facility] [place] [address] * Tacrolimus level trough (01/21/2025 6:30 AM CDT) Pathologist [facility] Tacrolimus trough 4.5 ng/mL Comment: Interpretive Data Testing performed by liquid chromatography-tandem mass spectrometry. Therapeutic concentrations vary depending on type of transplanted organ and time elapsed since transplant. Typical trough concentrations range from 5-15 ng/mL. This test was developed and its performance characteristics determined by the [facility] consistent with CLIA requirements. This test has not been cleared or approved by the US Food and Drug administration. Current interpretive data last reviewed 2020. Blood 01/21/2025 6:30 AM CDT 01/21/2025 6:47 AM CDT Narrative [facility] - 01/21/2025 9:53 AM CDT Draw exactly 12 HOURS after last dose of tacrolimus was given and just BEFORE giving next dose us Linda Harden MD LAB BLOOD ORDERABLES F inal Result Performing Organization Address [facility]/ZIP Co de Phone Number [facility] [place] [address] * (ABNORMAL) eGFR (01/21/2025 6:21 AM CDT) [facility] eGFR 19(L) >=60 mL/min/1. 73 m2 Comment: Interpretive Data Reference Interval Normal >/= 90 mL/min/1.73m2 Mildly decreased* 60 - 89 mL/min/1.73m2 Mildly to moderately decreased 45 - 59 mL/min/1.73m2 Moderately to severely decreased 30 - 44 mL/min/1.73m2 Severely decreased 15 - 29 mL/min/1.73m2 Kidney Failure < 15 mL/min/1.73m2 *Relative to young adult level Estimated glomerular filtration rate is determined by the 2020 CKD-EPI equation recommended by the National Kidney Foundation (A Unifying Approach to GFR Estimation: Recommendations of the NKF-ASK Task Force on Reassessing the Inclusion of Race in Diagnosing Kidney Disease, JASN 2020). The CKD-EPI equation should not be used for patients with unstable renal function and has not been validated in children and those over 70. Current interpretive data was last reviewed 2021. Blood 01/21/2025 6:21 AM CDT 01/21/2025 6:46 AM CDT us Gisselle Sheffield MD LAB BLOOD ORDERABLES Final Re sult [facility] Department [place] [address] * Tacrolimus level trough (01/21/2025 6:21 AM CDT) [facility] Tacrolimus trough 4.3 ng/mL Comment: Interpretive Data Testing performed by liquid chromatography-tandem mass spectrometry. Therapeutic concentrations vary depending on type of transplanted organ and time elapsed since transplant. Typical trough concentrations range from 5-15 ng/mL. This test was developed and its performance characteristics determined by the [facility] consistent with CLIA requirements. This test has not been cleared or approved by the US Food and Drug administration. Current interpretive data last reviewed 2020. Blood 01/21/2025 6:21 AM CDT 01/21/2025 6:48 AM CDT Narrative [facility] - 01/21/2025 9:53 AM CDT Draw exactly 12 HOURS after last dose of tacrolimus was given and just BEFORE giving next dose us Linda Harden MD LAB BLOOD ORDERABLES F inal Result Performing Organization Address [facility]/State/ZIP Co de Phone Number [facility] Department [place] [address] * (ABNORMAL) CBC without differential (01/21/2025 6:21 AM CDT) WBC 8.4 3.8 - 9.9 K/cumm Hgb 8.3(L) 11.9 - 15.5 g/dL [facility] Hct 25.7(L) 35.6 - 45.5 % [facility] Plt 164 150 - 400 K/cumm [facility] MPV 8.6(L) 9.1 - 12.3 fL [facility] RBC 2.74(L) 3.90 - 5.20 M/cumm [facility] MCV 93.8 81.3 - 96.4 fL [facility] MCH 30.3 27.1 - 33.3 pg [facility] MCHC 32.3 32.3 - 35.7 g/dL [facility] RDW CV 16.4(H) 11.1 - 14.9 % [facility] RDW SD 56.4(H) 35.7 - 48.1 fL [facility] NRBC abs 0.00 0.00 - 0.01 K/cumm [facility] Blood 01/21/2025 6:21 AM CDT 01/21/2025 6:47 AM CDT us Gisselle Sheffield MD LAB BLOOD ORDERABLES Final Re sult [facility] [place] [address] * Magnesium (01/21/2025 6:21 AM CDT) Magnesium 2.4 1.4 - 2.5 mg/dL Blood 01/21/2025 6:21 AM CDT 01/21/2025 6:46 AM CDT Gisselle Sheffield MD LAB BLOOD ORDERABLES Final Re sult [facility] Department [place] [address] * (ABNORMAL) Renal function panel (01/21/2025 6:21 AM CDT) Sodium 127(L) 135 - 145 mmol/L Potassium, pl 5.2(H) 3.3 - 4.9 mmol/L [facility] Chloride 90(L) 97 - 110 mmol/L [facility] CO2 26 22 - 32 mmol/L [facility] Anion gap 11 2 - 15 mmol/L [facility] BUN 91(H) 6 - 25 mg/dL [facility] Creatinine 2.51(H) 0.60 - 1.10 mg/dL [facility] Glucose 87 70 - 199 mg/dL [facility] Comment: Interpretive Data Fasting glucose >/= 126 mg/dl is diagnostic for diabetes. Fasting is defined as no caloric intake for at least 8 hours. Fasting glucose between 100 mg/dl to 125 mg/dl is diagnostic of prediabetes. In a patient with classic symptoms of hyperglycemia or hyperglycemic crisis, a random glucose >/= 200 mg/dl is diagnostic for diabetes. In the absence of unequivocal hyperglycemia, results should be confirmed by repeat testing. The classification and Diagnosis of Diabetes Diabetes Care 202; 46: S19-S40. Current interpretive data was last revised 2022. Calcium 6.9(L) 8.5 - 10.3 mg/dL [facility] Phosphorus, pl 4.9(H) 2.3 - 4.5 mg/dL [facility] Albumin 3.2(L) 3.5 - 5.0 g/dL [facility] Blood 01/21/2025 6:21 AM CDT 01/21/2025 6:46 AM CDT Gisselle Sheffield MD LAB BLOOD ORDERABLES Final Re sult [facility] [place] [address] * RIGHT HEART CATH (01/20/2025 11:48 AM CDT) Anatomical Region Laterality Modality X-Ray Angiograph y Narrative 01/20/2025 12:10 PM CDT Right Heart Catheterization Report Patient: Negrita Lincoln 1950 Referring: Linda Harden MD Performing: Bunny Islas MD PhD Fellow: Manuel Cote MD and Justina Zuniga MD Patient Clinical Profile: Negrita Lincoln is a 74 y.o. White female referred today for right heart catheterization. She has a history of severe MR and severe with preserved LVEF and prior renal transplant. She is referred for hemodynamic assessment to guide possible percutaneous valve interventions. Procedure: 1) Consent was obtained 2) The patient was transported to the catheterization bay, prepped, and draped in the usual sterile fashion. 3) I provided direct [id number] monitoring of conscious sedation which was administered by an independent trained nurse using Fentanyl 12.5 mcg and Midazolam 0.5 mg. Sedation time from 11:25-11:48. Local anesthesia with 1% lidocaine was used. 4) Venous access was obtained in theRight Internal Jugular vein using modified Seldinger technique and micropuncture approach. A 7 Cypriot sheath was secured into place. 5) Right heart catheterization was performed with a 7 Cypriot TD [place] Luis Manuel catheter. The catheter was advanced sequentially to the right atrium, right ventricle, pulmonary artery, and to the pulmonary capillary wedge position with pressures measured at each station and saturations drawn from the pulmonary artery for the estimation of cardiac output. Cardiac output by thermodilution was obtained. 6) Hemostasis - At the conclusion of the case the sheath was removed with hemostasis achieved by manual compression. 7) Complications - There were no complications. Results: Hemodynamics Noninvasive blood pressure (155/67/97) mmHg Right Heart Pressures (End-expiratory) Right atrial pressure 10 mmHg mean. Right ventricular pressure 44/12 mmHg. Pulmonary artery pressure 44/21/29 mmHg. Pulmonary capillary wedge pressure 18 mmHg mean. Derived Pressures Transpulmonary gradient 12 mmHg Diastolic pressure gradient 4 mmHg Transsystemic Gradient 87 mmHg Outputs and Resistances BSA 1.78 kg/m2 Hemoglobin 8.4 g/dl Heart Rate 72 beats/min Pulmonary Arterial Saturation 65% Systemic Arterial Saturation 91% AVO2 Difference 3.0 ml/dl Cardiac Output 125 x BSA Method (estimated VO2 222 ml/min) = 7.5 L/min, 4.2 L/min/m2. Thermodilution = 5.7 L/min, 3.2 L/min/m2 Vascular Resistances Pulmonary Vascular Resistance 2.1 Wood Units Systemic Vascular Resistance 15 Wood Units; 1200 dynes Derived Calculations Stroke Volume (CO/HR x 1000) = 79 mL Stroke Volume Index = SV/BSA = 44 mL/m2 Diagnostic Impressions: 1) Mildly elevated left heart filling pressures. 2) Elevated right heart filling pressures. 3) Mild pulmonary hypertension. Group 2 IPC-PH phenotype 4) High cardiac output at rest. Therapeutic Recommendations: The results of the right heart catheterization were discussed with the referring physician. Further management of valuve disease will be directed by our structural heart team. Bunny Islas MD PhD us Linda Harden MD CV CARDIAC CATH PROCED URES Final Result * (ABNORMAL) POCT oxyhemoglobin (01/20/2025 11:44 AM CDT) [facility] Oxyhemoglobin 66.3 >=65.0 % [facility] Hemoglobin 7.4(L) 11.9 - 15.5 g/dL [facility] O2 content 6.8(L) 15.0 - 22.0 Vol % [facility] Anatomic Site aPOC Pulm Art right [facility] Blood 01/20/2025 11:4 4 AM CDT 01/20/2025 11:44 AM CDT us Gisselle Sheffield MD LAB POCT ORDERABLES - DEVICE Final Result [facility] [place] [address] * (ABNORMAL) POCT oxyhemoglobin (01/20/2025 11:43 AM CDT) [facility] DISPLAY DEPARTMENT MANAGER Oxyhemoglobin 64.8(L) >=65.0 % [facility] Hemoglobin 7.4(L) 11.9 - 15.5 g/dL [facility] DISPLAY DEPARTMENT MANAGER O2 content 6.6(L) 15.0 - 22.0 Vol % [facility] Anatomic Site aPOC Pulm Art right [facility] Blood 01/20/2025 11:4 3 AM CDT 01/20/2025 11:43 AM CDT Gisselle Sheffield MD LAB POCT ORDERABLES - DEVICE Final Result Performing Organization Address [facility] de Phone Number [facility] [address] * POC Blood Gas and Chemistries, Arterial - (01/20/2025 10:04 AM CDT) [facility] K POC 4.7 3.3 - 4.9 mmol/L Comment: Interpretive Data Not all point of care methods assess for hemolysis. Confirm with instrument and retest K+ if not consistent with clinical signs and symptoms. Current Interpretive Data was last revised on 2024. Blood 01/20/2025 10:0 4 AM CDT 01/20/2025 10:04 AM CDT Gisselle Sheffield MD LAB POCT ORDERABLES - DEVICE Final Result Performing Organization Address [facility] Co de Phone Number [facility] [place] [address] * (ABNORMAL) eGFR (01/19/2025 8:11 PM CDT) [facility] eGFR 17(L) >=60 mL/min/1. 73 m2 Comment: Interpretive Data Reference Interval Normal >/= 90 mL/min/1.73m2 Mildly decreased* 60 - 89 mL/min/1.73m2 Mildly to moderately decreased 45 - 59 mL/min/1.73m2 Moderately to severely decreased 30 - 44 mL/min/1.73m2 Severely decreased 15 - 29 mL/min/1.73m2 Kidney Failure < 15 mL/min/1.73m2 *Relative to young adult level Estimated glomerular filtration rate is determined by the 2020 CKD-EPI equation recommended by the National Kidney Foundation (A Unifying Approach to GFR Estimation: Recommendations of the NKF-ASK Task Force on Reassessing the Inclusion of Race in Diagnosing Kidney Disease, JASN 2020). The CKD-EPI equation should not be used for patients with unstable renal function and has not been validated in children and those over 70. Current interpretive data was last reviewed 2021. Blood 01/19/2025 8:11 PM CDT 01/19/2025 9:12 PM CDT Linda Harden MD LAB BLOOD ORDERABLES F inal Result Performing Organization Address [facility] Co de Phone Number [facility] [address] * Tacrolimus level trough (01/19/2025 8:11 PM CDT) [facility] Tacrolimus trough 3.7 ng/mL Comment: Interpretive Data Testing performed by liquid chromatography-tandem mass spectrometry. Therapeutic concentrations vary depending on type of transplanted organ and time elapsed since transplant. Typical trough concentrations range from 5-15 ng/mL. This test was developed and its performance characteristics determined by the [facility] consistent with CLIA requirements. This test has not been cleared or approved by the US Food and Drug administration. Current interpretive data last reviewed 2020. Blood 01/19/2025 8:11 PM CDT 01/19/2025 9:12 PM CDT Narrative [facility] - 01/20/2025 1:43 AM CDT Draw exactly 12 HOURS after last dose of tacrolimus was given and just BEFORE giving next dose Linda Harden MD LAB BLOOD ORDERABLES F inal Result Performing Organization Address [facility] Co de Phone Number [facility] [place] [address] * (ABNORMAL) CBC without differential (01/19/2025 8:11 PM CDT) Pathologist [facility] WBC 9.6 3.8 - 9.9 K/cumm Hgb 8.4(L) 11.9 - 15.5 g/dL [facility] Hct 26.5(L) 35.6 - 45.5 % [facility] Plt 185 150 - 400 K/cumm [facility] MPV 9.2 9.1 - 12.3 fL [facility] RBC 2.78(L) 3.90 - 5.20 M/cumm [facility] MCV 95.3 81.3 - 96.4 fL [facility] MCH 30.2 27.1 - 33.3 pg [facility] MCHC 31.7(L) 32.3 - 35.7 g/dL [facility] RDW CV 16.4(H) 11.1 - 14.9 % [facility] RDW SD 57.1(H) 35.7 - 48.1 fL [facility] NRBC abs 0.00 0.00 - 0.01 K/cumm [facility] Blood 01/19/2025 8:11 PM CDT 01/19/2025 9:12 PM CDT Linda Harden MD LAB BLOOD ORDERABLES F inal Result Performing Organization Address [facility] Co de Phone Number [facility] [place] [address] * Magnesium (01/19/2025 8:11 PM CDT) [facility] Magnesium 2.3 1.4 - 2.5 mg/dL Blood 01/19/2025 8:11 PM CDT 01/19/2025 9:12 PM CDT Linda Harden MD LAB BLOOD ORDERABLES F inal Result Performing Organization Address City/[facility] Co de Phone Number [facility] [place] [address] * (ABNORMAL) Renal function panel (01/19/2025 8:11 PM CDT) Sodium 128(L) 135 - 145 mmol/L Potassium, pl 5.1(H) 3.3 - 4.9 mmol/L [facility] Chloride 90(L) 97 - 110 mmol/L [facility] CO2 25 22 - 32 mmol/L [facility] Anion gap 13 2 - 15 mmol/L [facility] BUN 95(H) 6 - 25 mg/dL [facility] Creatinine 2.76(H) 0.60 - 1.10 mg/dL [facility] Glucose 154 70 - 199 mg/dL [facility] Comment: Interpretive Data Fasting glucose >/= 126 mg/dl is diagnostic for diabetes. Fasting is defined as no caloric intake for at least 8 hours. Fasting glucose between 100 mg/dl to 125 mg/dl is diagnostic of prediabetes. In a patient with classic symptoms of hyperglycemia or hyperglycemic crisis, a random glucose >/= 200 mg/dl is diagnostic for diabetes. In the absence of unequivocal hyperglycemia, results should be confirmed by repeat testing. The classification and Diagnosis of Diabetes Diabetes Care 2021; 46: S19-S40. Current interpretive data was last revised 2022. Calcium 6.8(L) 8.5 - 10.3 mg/dL [facility] Phosphorus, pl 4.3 2.3 - 4.5 mg/dL [facility] Albumin 3.4(L) 3.5 - 5.0 g/dL [facility] Blood 01/19/2025 8:11 PM CDT 01/19/2025 9:12 PM CDT us Linda Harden MD LAB BLOOD ORDERABLES F inal Result [facility] Department [place] [address] * Urea nitrogen, urine, random (01/19/2025 10:43 AM CDT) Pathologist [facility] Urea nitrogen, ur 271 mg/dL Comment: Interpretive Data No reference range established. Current interpretive data was last revised 2019. Urine 01/19/2025 10:4 3 AM CDT 01/19/2025 11:16 AM CDT Linda Harden MD LAB URINE ORDERABLES F inal Result Performing Organization Address [facility] Co de Phone Number [facility] [place] [address] * Sodium, urine, random (01/19/2025 10:43 AM CDT) Sodium, ur 51 mmol/L Comment: Interpretive Data No reference range established. Current interpretive data was last revised 2019. Urine 01/19/2025 10:4 3 AM CDT 01/19/2025 11:16 AM CDT Linda Harden MD LAB URINE ORDERABLES F inal Result Performing Organization Address [facility] de Phone Number [facility] [address] * Creatinine, urine, random (01/19/2025 10:43 AM CDT) Creatinine Ur 34.9 mg/dL Comment: Interpretive Data No reference range established. Current interpretive data was last revised 2019. Urine 01/19/2025 10:4 3 AM CDT 01/19/2025 11:16 AM CDT Linda Harden MD LAB URINE ORDERABLES F inal Result Performing Organization Address City/[facility] Co de Phone Number [facility] [address] * Tacrolimus level trough (01/19/2025 8:15 AM CDT) Tacrolimus trough 2.7 ng/mL Comment: Interpretive Data Testing performed by liquid chromatography-tandem mass spectrometry. Therapeutic concentrations vary depending on type of transplanted organ and time elapsed since transplant. Typical trough concentrations range from 5-15 ng/mL. This test was developed and its performance characteristics determined by the [facility] consistent with CLIA requirements. This test has not been cleared or approved by the [place] Food and Drug administration. Current interpretive data last reviewed 2020. Blood 01/19/2025 8:15 AM CDT 01/19/2025 8:49 AM CDT Kunal HICKS - 01/19/2025 12:31 PM CDT Draw exactly 12 HOURS after last dose of tacrolimus was given and just BEFORE giving next dose us Linda Harden MD LAB BLOOD ORDERABLES F inal Result [facility] Department [place] [address] * (ABNORMAL) eGFR (01/18/2025 8:37 PM CDT) eGFR 18(L) >=60 mL/min/1. 73 m2 Comment: Interpretive Data Reference Interval Normal >/= 90 mL/min/1.73m2 Mildly decreased* 60 - 89 mL/min/1.73m2 Mildly to moderately decreased 45 - 59 mL/min/1.73m2 Moderately to severely decreased 30 - 44 mL/min/1.73m2 Severely decreased 15 - 29 mL/min/1.73m2 Kidney Failure < 15 mL/min/1.73m2 *Relative to young adult level Estimated glomerular filtration rate is determined by the 2020 CKD-EPI equation recommended by the National Kidney Foundation (A Unifying Approach to GFR Estimation: Recommendations of the NKF-ASK Task Force on Reassessing the Inclusion of Race in Diagnosing Kidney Disease, JASN 2020). The CKD-EPI equation should not be used for patients with unstable renal function and has not been validated in children and those over 70. Current interpretive data was last reviewed 2021. Blood 01/18/2025 8:37 PM CDT 01/18/2025 9:40 PM CDT Linda Harden MD LAB BLOOD ORDERABLES F inal Result Performing Organization Address City/[facility] Co de Phone Number [facility] [place] [address] * Tacrolimus level trough (01/18/2025 8:37 PM CDT) [facility] Tacrolimus trough 3.5 ng/mL Comment: Interpretive Data Testing performed by liquid chromatography-tandem mass spectrometry. Therapeutic concentrations vary depending on type of transplanted organ and time elapsed since transplant. Typical trough concentrations range from 5-15 ng/mL. This test was developed and its performance characteristics determined by the [facility] consistent with CLIA requirements. This test has not been cleared or approved by the US Food and Drug administration. Current interpretive data last reviewed 2020. Blood 01/18/2025 8:37 PM CDT 01/18/2025 9:42 PM CDT Narrative [facility] - 01/19/2025 1:52 AM CDT Draw exactly 12 HOURS after last dose of tacrolimus was given and just BEFORE giving next dose Linda Harden MD LAB BLOOD ORDERABLES F inal Result Performing Organization Address [facility] de Phone Number [facility] Department [place] [address] * (ABNORMAL) CBC without differential (01/18/2025 8:37 PM CDT) [facility] WBC 9.6 3.8 - 9.9 K/cumm Hgb 7.9(L) 11.9 - 15.5 g/dL [facility] Hct 24.8(L) 35.6 - 45.5 % [facility] Plt 166 150 - 400 K/cumm [facility] MPV 9.4 9.1 - 12.3 fL [facility] RBC 2.63(L) 3.90 - 5.20 M/cumm [facility] MCV 94.3 81.3 - 96.4 fL [facility] MCH 30.0 27.1 - 33.3 pg [facility] MCHC 31.9(L) 32.3 - 35.7 g/dL [facility] RDW CV 16.1(H) 11.1 - 14.9 % [facility] RDW SD 55.8(H) 35.7 - 48.1 fL [facility] NRBC abs 0.00 0.00 - 0.01 K/cumm [facility] Blood 01/18/2025 8:37 PM CDT 01/18/2025 9:42 PM CDT Linda Harden MD LAB BLOOD ORDERABLES F inal Result Performing Organization Address City/[facility]/ZIP Co de Phone Number [facility] [place] [address] * Magnesium (01/18/2025 8:37 PM CDT) [facility] Magnesium 2.4 1.4 - 2.5 mg/dL Blood 01/18/2025 8:37 PM CDT 01/18/2025 9:40 PM CDT Linda Harden MD LAB BLOOD ORDERABLES F inal Result Performing Organization Address City/[facility] Co de Phone Number [facility] [place] [address] * (ABNORMAL) Renal function panel (01/18/2025 8:37 PM CDT) [facility] Sodium 125(L) 135 - 145 mmol/L Potassium, pl 5.2(H) 3.3 - 4.9 mmol/L [facility] Chloride 90(L) 97 - 110 mmol/L [facility] CO2 23 22 - 32 mmol/L [facility] Anion gap 12 2 - 15 mmol/L [facility] BUN 84(H) 6 - 25 mg/dL [facility] Creatinine 2.68(H) 0.60 - 1.10 mg/dL [facility] Glucose 137 70 - 199 mg/dL [facility] Comment: Interpretive Data Fasting glucose >/= 126 mg/dl is diagnostic for diabetes. Fasting is defined as no caloric intake for at least 8 hours. Fasting glucose between 100 mg/dl to 125 mg/dl is diagnostic of prediabetes. In a patient with classic symptoms of hyperglycemia or hyperglycemic crisis, a random glucose >/= 200 mg/dl is diagnostic for diabetes. In the absence of unequivocal hyperglycemia, results should be confirmed by repeat testing. The classification and Diagnosis of Diabetes Diabetes Care 2021; 46: S19-S40. Current interpretive data was last revised 2022. Calcium 6.6(L) 8.5 - 10.3 mg/dL [facility] Phosphorus, pl 3.8 2.3 - 4.5 mg/dL [facility] Albumin 3.1(L) 3.5 - 5.0 g/dL [facility] Blood 01/18/2025 8:37 PM CDT 01/18/2025 9:40 PM CDT Linda Harden MD LAB BLOOD ORDERABLES F inal Result Performing Organization Address City/[facility]/ZIP Co de Phone Number [facility] [place] [address] * Potassium (01/18/2025 1:13 PM CDT) [facility] Potassium, pl 4.9 3.3 - 4.9 mmol/L Blood 01/18/2025 1:13 PM CDT 01/18/2025 1:42 PM CDT Narrative [facility] - 01/18/2025 2:22 PM CDT Provider to discontinue after two normal results. Linda Harden MD LAB BLOOD ORDERABLES F inal Result [facility] [place] [address] * Tacrolimus level trough (01/18/2025 8:51 AM CDT) Tacrolimus trough 3.8 ng/mL Comment: Interpretive Data Testing performed by liquid chromatography-tandem mass spectrometry. Therapeutic concentrations vary depending on type of transplanted organ and time elapsed since transplant. Typical trough concentrations range from 5-15 ng/mL. This test was developed and its performance characteristics determined by the [facility] consistent with CLIA requirements. This test has not been cleared or approved by the US Food and Drug administration. Current interpretive data last reviewed 2020. Blood 01/18/2025 8:51 AM CDT 01/18/2025 10:17 AM CDT Narrative [facility] - 01/18/2025 1:56 PM CDT Draw exactly 12 HOURS after last dose of tacrolimus was given and just BEFORE giving next dose Linda Harden MD LAB BLOOD ORDERABLES F inal Result Performing Organization Address City/[facility]/ZIP Co de Phone Number [facility] [place] [address] * (ABNORMAL) Potassium (01/18/2025 8:51 AM CDT) Potassium, pl 5.0(H) 3.3 - 4.9 mmol/L Blood 01/18/2025 8:51 AM CDT 01/18/2025 10:17 AM CDT Narrative [facility] - 01/18/2025 10:37 AM CDT Provider to discontinue after two normal results. Linda Harden MD LAB BLOOD ORDERABLES F inal Result [facility] [address] * (ABNORMAL) Potassium (01/18/2025 4:27 AM CDT) Potassium, pl 5.4(H) 3.3 - 4.9 mmol/L Blood 01/18/2025 4:27 AM CDT 01/18/2025 4:49 AM CDT Narrative [facility] - 01/18/2025 5:13 AM CDT Provider to discontinue after two normal results. Linda Harden MD LAB BLOOD ORDERABLES F inal Result Performing Organization Address [facility] Co de Phone Number [facility] [address] * Troponin I high-sensitivity (01/18/2025 12:52 AM CDT) Trop I hs 10 <=17 ng/L Comment: Interpretive Data For further hscTnI resources including the diagnostic algorithm and an aid in interpretation, copy and paste this link: [email or web address] Current Interpretive Data last revised 2020. Blood 01/18/2025 12:5 2 AM CDT 01/18/2025 1:24 AM CDT Linda Harden MD LAB BLOOD ORDERABLES F inal Result Performing Organization Address [facility] [place] [address] * (ABNORMAL) Potassium (01/18/2025 12:51 AM CDT) Potassium, pl 5.3(H) 3.3 - 4.9 mmol/L Blood 01/18/2025 12:5 1 AM CDT 01/18/2025 1:24 AM CDT Narrative [facility] - 01/18/2025 1:44 AM CDT Provider to discontinue after two normal results. Linda Harden MD LAB BLOOD ORDERABLES F inal Result Performing Organization Address [facility] Co de Phone Number [facility] [address] * ECG 12 lead (01/18/2025 12:44 AM CDT) Ventricular Rate EKG/Min 72 BPM [facility] Atrial Rate 72 BPM [facility] MS-Interval (MSEC) 174 ms [facility] QRS-Interval (MSEC) 106 ms [facility] QT-Interval (MSEC) 414 ms [facility] QTc 453 ms [facility] P Verb[place] 77 degrees [facility] R Verb[place] -61 degrees [facility] T Verbena 40 degrees [facility] Diagnosis Normal sinus rhythm Left anterior fascicular block Minimal voltage criteria for LVH, may be normal variant ( Talib product ) Septal infarct (cited on or before 17-JAN-2025) Abnormal ECG When compared with ECG of 17-JAN-2025 23:57, (unconfirmed) No significant change was found Confirmed by YINA SOTO M.D ([id number]) on 01/19/2025 6:54:12 PM [facility] 01/18/2025 12:4 4 AM CDT 01/19/2025 6:54 PM CDT us Linda Harden MD ECG ORDERABLES Final Result [facility] * ECG 12 lead (01/17/2025 11:57 PM CDT) Ventricular Rate EKG/Min 68 BPM [facility] Atrial Rate 68 BPM [facility] MS-Interval (MSEC) 178 ms [facility] QRS-Interval (MSEC) 106 ms [facility] QT-Interval (MSEC) 428 ms [facility] QTc 455 ms [facility] P [place] 81 degrees [facility] R [place] -60 degrees [facility] T [place] 38 degrees [facility] Diagnosis Normal sinus rhythm Pulmonary disease pattern Incomplete right bundle branch block Left anterior fascicular block Minimal voltage criteria for LVH, may be normal variant ( Burgaw product ) Possible Septal infarct , age undetermined Abnormal ECG When compared with ECG of 16-JAN-2025 08:56, Incomplete right bundle branch block is now Present Confirmed by DERRICK HONEYCUTT M.D ([id number]) on 01/20/2025 2:43:58 PM [facility] 01/17/2025 11:5 7 PM CDT 01/20/2025 2:43 PM CDT Linda Harden MD ECG ORDERABLES Final Result [facility] * (ABNORMAL) eGFR (01/17/2025 8:50 PM CDT) eGFR 19(L) >=60 mL/min/1. 73 m2 Comment: Interpretive Data Reference Interval Normal >/= 90 mL/min/1.73m2 Mildly decreased* 60 - 89 mL/min/1.73m2 Mildly to moderately decreased 45 - 59 mL/min/1.73m2 Moderately to severely decreased 30 - 44 mL/min/1.73m2 Severely decreased 15 - 29 mL/min/1.73m2 Kidney Failure < 15 mL/min/1.73m2 *Relative to young adult level Estimated glomerular filtration rate is determined by the 2020 CKD-EPI equation recommended by the National Kidney Foundation (A Unifying Approach to GFR Estimation: Recommendations of the NKF-ASK Task Force on Reassessing the Inclusion of Race in Diagnosing Kidney Disease, JASN 2020). The CKD-EPI equation should not be used for patients with unstable renal function and has not been validated in children and those over 70. Current interpretive data was last reviewed 2021. Blood 01/17/2025 8:50 PM CDT 01/17/2025 10:49 PM CDT Linda Harden MD LAB BLOOD ORDERABLES F inal Result [facility] [place] [address] * Tacrolimus level trough (01/17/2025 8:50 PM CDT) Tacrolimus trough 4.4 ng/mL Comment: Interpretive Data Testing performed by liquid chromatography-tandem mass spectrometry. Therapeutic concentrations vary depending on type of transplanted organ and time elapsed since transplant. Typical trough concentrations range from 5-15 ng/mL. This test was developed and its performance characteristics determined by the [facility] consistent with CLIA requirements. This test has not been cleared or approved by the US Food and Drug administration. Current interpretive data last reviewed 2020. Blood 01/17/2025 8:50 PM CDT 01/17/2025 10:49 PM CDT Narrative [facility] - 01/18/2025 2:48 AM CDT Draw exactly 12 HOURS after last dose of tacrolimus was given and just BEFORE giving next dose us Linda Harden MD LAB BLOOD ORDERABLES F inal Result [facility] Department [place] [address] * (ABNORMAL) CBC without differential (01/17/2025 8:50 PM CDT) WBC 8.2 3.8 - 9.9 K/cumm Hgb 8.0(L) 11.9 - 15.5 g/dL [facility] Hct 25.8(L) 35.6 - 45.5 % [facility] Plt 159 150 - 400 K/cumm [facility] MPV 9.2 9.1 - 12.3 fL [facility] RBC 2.66(L) 3.90 - 5.20 M/cumm [facility] MCV 97.0(H) 81.3 - 96.4 fL [facility] MCH 30.1 27.1 - 33.3 pg [facility] MCHC 31.0(L) 32.3 - 35.7 g/dL [facility] RDW CV 16.3(H) 11.1 - 14.9 % [facility] RDW SD 57.9(H) 35.7 - 48.1 fL [facility] NRBC abs 0.00 0.00 - 0.01 K/cumm [facility] Blood 01/17/2025 8:50 PM CDT 01/17/2025 10:48 PM CDT us Linda Harden MD LAB BLOOD ORDERABLES F inal Result Performing Organization Address City/[facility]/ZIP Co de Phone Number [facility] [place] [address] * (ABNORMAL) Magnesium (01/17/2025 8:50 PM CDT) [facility] Magnesium 2.6(H) 1.4 - 2.5 mg/dL Blood 01/17/2025 8:50 PM CDT 01/17/2025 10:49 PM CDT Linda Harden MD LAB BLOOD ORDERABLES F inal Result Performing Organization Address [facility] Co de Phone Number [facility] [place] [address] * (ABNORMAL) Renal function panel (01/17/2025 8:50 PM CDT) [facility] Sodium 126(L) 135 - 145 mmol/L Potassium, pl 5.7(H) 3.3 - 4.9 mmol/L [facility] Chloride 91(L) 97 - 110 mmol/L [facility] CO2 23 22 - 32 mmol/L [facility] Anion gap 12 2 - 15 mmol/L [facility] BUN 78(H) 6 - 25 mg/dL [facility] Creatinine 2.60(H) 0.60 - 1.10 mg/dL [facility] Glucose 129 70 - 199 mg/dL [facility] Comment: Interpretive Data Fasting glucose >/= 126 mg/dl is diagnostic for diabetes. Fasting is defined as no caloric intake for at least 8 hours. Fasting glucose between 100 mg/dl to 125 mg/dl is diagnostic of prediabetes. In a patient with classic symptoms of hyperglycemia or hyperglycemic crisis, a random glucose >/= 200 mg/dl is diagnostic for diabetes. In the absence of unequivocal hyperglycemia, results should be confirmed by repeat testing. The classification and Diagnosis of Diabetes Diabetes Care 2021; 46: S19-S40. Current interpretive data was last revised 2022. Calcium 6.7(L) 8.5 - 10.3 mg/dL [facility] Phosphorus, pl 3.9 2.3 - 4.5 mg/dL [facility] Albumin 3.1(L) 3.5 - 5.0 g/dL [facility] Blood 01/17/2025 8:50 PM CDT 01/17/2025 10:49 PM CDT Linda Harden MD LAB BLOOD ORDERABLES F inal Result Performing Organization Address [facility] de Phone Number [facility] [place] [address] * (ABNORMAL) Protein / creatinine ratio, urine, random (01/17/2025 9:44 AM CDT) Protein, ur, quant 23.1 mg/dL Comment: Interpretive Data No reference range established. Current interpretive data was last revised 2019. Creatinine Ur 62.4 mg/dL [facility] Comment: Interpretive Data No reference range established. Current interpretive data was last revised 2019. Protein/creatinin e ratio 370.2(H) 0.0 - 180.0 mg/g CR [facility] Urine 01/17/2025 9:44 AM CDT 01/17/2025 10:47 AM CDT Luna Beckford MEDIA ANALYST LAB URINE ORDERABLES Мария l Result Performing Organization Address [facility] de Phone Number [facility] Department [place] [address] * Sodium, urine, random (01/17/2025 9:44 AM CDT) Sodium, ur <20 mmol/L Comment: Interpretive Data No reference range established. Current interpretive data was last revised 2019. Urine 01/17/2025 9:44 AM CDT 01/17/2025 10:47 AM CDT us Luna Beckford NP LAB URINE ORDERABLES Мария l Result Performing Organization Address [facility] Co de Phone Number [facility] [place] [address] * Potassium, urine, random (01/17/2025 9:44 AM CDT) Potassium conc, ur 15.1 mmol/L Comment: Interpretive Data No reference range established. Current interpretive data was last revised 2019. Urine 01/17/2025 9:44 AM CDT 01/17/2025 10:47 AM CDT us Luna Beckford MEDIA ANALYST LAB URINE ORDERABLES Мария l Result Performing Organization Address [facility] de Phone Number [facility] [place] [address] * Osmolality, urine (01/17/2025 9:44 AM CDT) Osmo, ur 257 mOsm/kg Urine 01/17/2025 9:44 AM CDT 01/17/2025 10:47 AM CDT us Linda Harden MD LAB URINE ORDERABLES F inal Result Performing Organization Address [facility] Co de Phone Number [facility] [place] [address] * Creatinine, urine, random (01/17/2025 9:44 AM CDT) Creatinine Ur 62.4 mg/dL Comment: Interpretive Data No reference range established. Current interpretive data was last revised 2019. Urine 01/17/2025 9:44 AM CDT 01/17/2025 10:47 AM CDT us Luna Deanna Analy MEDIA ANALYST LAB URINE ORDERABLES Мария l Result Performing Organization Address City/[facility] Co [facility] [place] [address] * Chloride, urine, random (01/17/2025 9:44 AM CDT) Chloride, ur <25 mmol/L Comment: Interpretive Data No reference range established. Current interpretive data was last revised 2019. Urine 01/17/2025 9:44 AM CDT 01/17/2025 10:47 AM CDT us Luna Beckford NP LAB URINE ORDERABLES Мария l Result Performing Organization Address [facility] Co de Phone Number [facility] [place] [address] * Infection Prevention Pancho auris PCR, surveillance Axilla/Groin (01/17/2025 9:39 AM CDT) [facility] Pancho auris DNA Not Detected Not Detected [facility] Comment: Interpretive Data Testing performed by [facility] using the Luz viji [id number] Pancho auris assay. This assay detects DNA from Pancho auris using Real-Time PCR. This assay is laboratory developed and is not cleared by the [place] Food and Drug Administration. The performance characteristics have been verified by the [facility]. Axilla/Groin 01/17/2025 9:39 AM CDT 01/17/2025 10:32 AM CDT Hoang Son MD LAB MICROBIOLOGY - GENERAL ORDER FILI Final Result Performing Organization Address [facility] Co de Phone Number [facility] [place] [address] [facility] * Tacrolimus level trough (01/17/2025 9:39 AM CDT) Pathologist [facility] Tacrolimus trough 3.9 ng/mL Comment: Interpretive Data Testing performed by liquid chromatography-tandem mass spectrometry. Therapeutic concentrations vary depending on type of transplanted organ and time elapsed since transplant. Typical trough concentrations range from 5-15 ng/mL. This test was developed and its performance characteristics determined by the [facility] consistent with CLIA requirements. This test has not been cleared or approved by the [place] Food and Drug administration. Current interpretive data last reviewed 2020. Blood 01/17/2025 9:39 AM CDT 01/17/2025 10:38 AM CDT [facility] - 01/17/2025 2:10 PM CDT Draw exactly 12 HOURS after last dose of tacrolimus was given and just BEFORE giving next dose us Linda Harden MD LAB BLOOD ORDERABLES F inal Result [facility] [place] [address] * (ABNORMAL) eGFR (01/16/2025 8:19 PM CDT) eGFR 19(L) >=60 mL/min/1. 73 m2 Comment: Interpretive Data Reference Interval Normal >/= 90 mL/min/1.73m2 Mildly decreased* 60 - 89 mL/min/1.73m2 Mildly to moderately decreased 45 - 59 mL/min/1.73m2 Moderately to severely decreased 30 - 44 mL/min/1.73m2 Severely decreased 15 - 29 mL/min/1.73m2 Kidney Failure < 15 mL/min/1.73m2 *Relative to young adult level Estimated glomerular filtration rate is determined by the 2020 CKD-EPI equation recommended by the National Kidney Foundation (A Unifying Approach to GFR Estimation: Recommendations of the NKF-ASK Task Force on Reassessing the Inclusion of Race in Diagnosing Kidney Disease, JASN 202). The CKD-EPI equation should not be used for patients with unstable renal function and has not been validated in children and those over 70. Current interpretive data was last reviewed 2021. Blood 01/16/2025 8:19 PM CDT 01/16/2025 9:32 PM CDT us Linda Harden MD LAB BLOOD ORDERABLES F inal Result Performing Organization Address City/[facility]/ZIP Co de Phone Number [facility] Department [place] [address] * Lizy-Burton Virus (EBV) DNA Quantitative Blood (01/16/2025 8:19 PM CDT) [facility] EBV DNA Result Not Detected [facility] Comment: Interpretive Data The quantifiable range of this assay is 35 IUnits/mL to 100,000,000 IUnits/mL (1.54 log IUnits/mL to 8.0 log IUnits/mL). Testing was performed by the VIJI 6800 EBV Test ([employer] Testing performed at [facility]. Current interpretive data was last revised on 2023. Blood 01/16/2025 8:19 PM CDT 01/16/2025 9:56 PM CDT Narrative [facility] - 01/17/2025 9:35 PM CDT Can be drawn with routine labs Luna Beckford NP LAB MICROBIOLOGY - GENERA L ORDERABLES Final Result Performing Organization Address [facility] Co de Phone Number [facility] Department [place] [address] [facility] * Tacrolimus level trough (01/16/2025 8:19 PM CDT) [facility] Tacrolimus trough 4.6 ng/mL Comment: Interpretive Data Testing performed by liquid chromatography-tandem mass spectrometry. Therapeutic concentrations vary depending on type of transplanted organ and time elapsed since transplant. Typical trough concentrations range from 5-15 ng/mL. This test was developed and its performance characteristics determined by the [facility] consistent with CLIA requirements. This test has not been cleared or approved by the US Food and Drug administration. Current interpretive data last reviewed 2020. Blood 01/16/2025 8:19 PM CDT 01/16/2025 9:32 PM CDT Narrative [facility] - 01/17/2025 2:42 AM CDT Draw exactly 12 HOURS after last dose of tacrolimus was given and just BEFORE giving next dose Linda Harden MD LAB BLOOD ORDERABLES F inal Result Performing Organization Address [facility] de Phone Number [facility] Department [place] [address] * (ABNORMAL) CBC without differential (01/16/2025 8:19 PM CDT) [facility] WBC 7.5 3.8 - 9.9 K/cumm Hgb 8.3(L) 11.9 - 15.5 g/dL [facility] Hct 26.5(L) 35.6 - 45.5 % [facility] Plt 145(L) 150 - 400 K/cumm [facility] MPV 8.9(L) 9.1 - 12.3 fL [facility] RBC 2.75(L) 3.90 - 5.20 M/cumm [facility] MCV 96.4 81.3 - 96.4 fL [facility] MCH 30.2 27.1 - 33.3 pg [facility] MCHC 31.3(L) 32.3 - 35.7 g/dL [facility] RDW CV 16.4(H) 11.1 - 14.9 % [facility] RDW SD 57.6(H) 35.7 - 48.1 fL [facility] NRBC abs 0.00 0.00 - 0.01 K/cumm [facility] Blood 01/16/2025 8:19 PM CDT 01/16/2025 9:32 PM CDT Linda Harden MD LAB BLOOD ORDERABLES F inal Result Performing Organization Address [facility] Co de Phone Number [facility] [place] [address] * (ABNORMAL) Magnesium (01/16/2025 8:19 PM CDT) Magnesium 2.8(H) 1.4 - 2.5 mg/dL Blood 01/16/2025 8:19 PM CDT 01/16/2025 9:32 PM CDT us Linda Harden MD LAB BLOOD ORDERABLES F inal Result [facility] Department [place] [address] * (ABNORMAL) Renal function panel (01/16/2025 8:19 PM CDT) Pathologist [facility] Sodium 129(L) 135 - 145 mmol/L Potassium, pl 5.0(H) 3.3 - 4.9 mmol/L [facility] Chloride 94(L) 97 - 110 mmol/L [facility] CO2 22 22 - 32 mmol/L [facility] Anion gap 13 2 - 15 mmol/L [facility] BUN 84(H) 6 - 25 mg/dL [facility] Creatinine 2.55(H) 0.60 - 1.10 mg/dL [facility] Glucose 230(H) 70 - 199 mg/dL [facility] Comment: Interpretive Data Fasting glucose >/= 126 mg/dl is diagnostic for diabetes. Fasting is defined as no caloric intake for at least 8 hours. Fasting glucose between 100 mg/dl to 125 mg/dl is diagnostic of prediabetes. In a patient with classic symptoms of hyperglycemia or hyperglycemic crisis, a random glucose >/= 200 mg/dl is diagnostic for diabetes. In the absence of unequivocal hyperglycemia, results should be confirmed by repeat testing. The classification and Diagnosis of Diabetes Diabetes Care 2021; 46: S19-S40. Current interpretive data was last revised 2022. Calcium 6.8(L) 8.5 - 10.3 mg/dL [facility] Phosphorus, pl 3.7 2.3 - 4.5 mg/dL [facility] Albumin 3.1(L) 3.5 - 5.0 g/dL [facility] Blood 01/16/2025 8:19 PM CDT 01/16/2025 9:32 PM CDT us Linda Harden MD LAB BLOOD ORDERABLES F inal Result [facility] Department [place] [address] * (ABNORMAL) eGFR (01/16/2025 11:25 AM CDT) eGFR 19(L) >=60 mL/min/1. 73 m2 Comment: Interpretive Data Reference Interval Normal >/= 90 mL/min/1.73m2 Mildly decreased* 60 - 89 mL/min/1.73m2 Mildly to moderately decreased 45 - 59 mL/min/1.73m2 Moderately to severely decreased 30 - 44 mL/min/1.73m2 Severely decreased 15 - 29 mL/min/1.73m2 Kidney Failure < 15 mL/min/1.73m2 *Relative to young adult level Estimated glomerular filtration rate is determined by the 2020 CKD-EPI equation recommended by the National Kidney Foundation (A Unifying Approach to GFR Estimation: Recommendations of the NKF-ASK Task Force on Reassessing the Inclusion of Race in Diagnosing Kidney Disease, JASN 2020). The CKD-EPI equation should not be used for patients with unstable renal function and has not been validated in children and those over 70. Current interpretive data was last reviewed 2021. Blood 01/16/2025 11:2 5 AM CDT 01/16/2025 12:31 PM CDT us Luna Beckford NP LAB BLOOD ORDERABLES Мария l Result [facility] Department [place] [address] * (ABNORMAL) Magnesium (01/16/2025 11:25 AM CDT) Magnesium 2.7(H) 1.4 - 2.5 mg/dL Blood 01/16/2025 11:2 5 AM CDT 01/16/2025 12:31 PM CDT us Luna Beckford NP LAB BLOOD ORDERABLES Мария l Result [facility] Department [place] [address] * (ABNORMAL) Renal function panel (01/16/2025 11:25 AM CDT) Sodium 133(L) 135 - 145 mmol/L Potassium, pl 4.2 3.3 - 4.9 mmol/L [facility] Chloride 96(L) 97 - 110 mmol/L [facility] CO2 27 22 - 32 mmol/L [facility] Anion gap 10 2 - 15 mmol/L [facility] BUN 78(H) 6 - 25 mg/dL [facility] Creatinine 2.58(H) 0.60 - 1.10 mg/dL [facility] Glucose 129 70 - 199 mg/dL [facility] Comment: Interpretive Data Fasting glucose >/= 126 mg/dl is diagnostic for diabetes. Fasting is defined as no caloric intake for at least 8 hours. Fasting glucose between 100 mg/dl to 125 mg/dl is diagnostic of prediabetes. In a patient with classic symptoms of hyperglycemia or hyperglycemic crisis, a random glucose >/= 200 mg/dl is diagnostic for diabetes. In the absence of unequivocal hyperglycemia, results should be confirmed by repeat testing. The classification and Diagnosis of Diabetes Diabetes Care 2021; 46: S19-S40. Current interpretive data was last revised 2022. Calcium 6.8(L) 8.5 - 10.3 mg/dL [facility] Phosphorus, pl 3.3 2.3 - 4.5 mg/dL [facility] Albumin 3.1(L) 3.5 - 5.0 g/dL [facility] Blood 01/16/2025 11:2 5 AM CDT 01/16/2025 12:31 PM CDT Luna Beckford NP LAB BLOOD ORDERABLES Мария l Result Performing Organization Address City/[facility] Co de Phone Number [facility] Department [place] [address] * ECG 12 lead (01/16/2025 8:56 AM CDT) Ventricular Rate EKG/Min 67 BPM [facility] Atrial Rate 67 BPM [facility] MS-Interval (MSEC) 174 ms [facility] QRS-Interval (MSEC) 116 ms [facility] QT-Interval (MSEC) 448 ms [facility] QTc 473 ms [facility] P Verbena 70 degrees [facility] R Verbena -68 degrees [facility] T Verbena 8 degrees [facility] Diagnosis Normal sinus rhythm Left anterior fascicular block Minimal voltage criteria for LVH, may be normal variant ( Talib product ) Abnormal ECG Confirmed by Neftali Brandon MD ([id number]) on 01/16/2025 11:34:23 AM [facility] 01/16/2025 8:56 AM CDT 01/16/2025 11:34 AM CDT us Luna Beckford MEDIA ANALYST ECG ORDERABLES Final Res ult Performing Organization Address [facility] de Phone Number [facility] * Tacrolimus level trough (01/16/2025 5:00 AM CDT) Tacrolimus trough 5.9 ng/mL Comment: Interpretive Data Testing performed by liquid chromatography-tandem mass spectrometry. Therapeutic concentrations vary depending on type of transplanted organ and time elapsed since transplant. Typical trough concentrations range from 5-15 ng/mL. This test was developed and its performance characteristics determined by the [facility] consistent with CLIA requirements. This test has not been cleared or approved by the US Food and Drug administration. Current interpretive data last reviewed 2020. Blood 01/16/2025 5:00 AM CDT 01/16/2025 5:20 AM CDT Narrative [facility] - 01/16/2025 8:45 AM CDT Draw exactly 12 HOURS after last dose of tacrolimus was given and just BEFORE giving next dose us Linda Harden MD LAB BLOOD ORDERABLES F inal Result Performing Organization Address City/[facility] Co de Phone Number [facility] Department [place] [address] * (ABNORMAL) eGFR (01/15/2025 9:37 PM CDT) eGFR 18(L) >=60 mL/min/1. 73 m2 Comment: Interpretive Data Reference Interval Normal >/= 90 mL/min/1.73m2 Mildly decreased* 60 - 89 mL/min/1.73m2 Mildly to moderately decreased 45 - 59 mL/min/1.73m2 Moderately to severely decreased 30 - 44 mL/min/1.73m2 Severely decreased 15 - 29 mL/min/1.73m2 Kidney Failure < 15 mL/min/1.73m2 *Relative to young adult level Estimated glomerular filtration rate is determined by the 2020 CKD-EPI equation recommended by the National Kidney Foundation (A Unifying Approach to GFR Estimation: Recommendations of the NKF-ASK Task Force on Reassessing the Inclusion of Race in Diagnosing Kidney Disease, JASN 2020). The CKD-EPI equation should not be used for patients with unstable renal function and has not been validated in children and those over 70. Current interpretive data was last reviewed 2021. Blood 01/15/2025 9:37 PM CDT 01/15/2025 10:20 PM CDT us Linda Harden MD LAB BLOOD ORDERABLES F inal Result Performing Organization Address City/[facility]/ZIP Co de Phone Number [facility] Department [place] [address] * (ABNORMAL) Calcium, ionized (01/15/2025 9:37 PM CDT) Calcium, Ionized 3.47(L) 4.50 - 5.10 mg/dL Blood 01/15/2025 9:37 PM CDT 01/15/2025 10:15 PM CDT Linda Harden MD LAB BLOOD ORDERABLES F inal Result Performing Organization Address [facility] Co de Phone Number [facility] Department [place] [address] * Tacrolimus level trough (01/15/2025 9:37 PM CDT) [facility] Tacrolimus trough 5.8 ng/mL Comment: Interpretive Data Testing performed by liquid chromatography-tandem mass spectrometry. Therapeutic concentrations vary depending on type of transplanted organ and time elapsed since transplant. Typical trough concentrations range from 5-15 ng/mL. This test was developed and its performance characteristics determined by the [facility] consistent with CLIA requirements. This test has not been cleared or approved by the US Food and Drug administration. Current interpretive data last reviewed 2020. Blood 01/15/2025 9:37 PM CDT 01/15/2025 10:20 PM CDT Narrative [facility] - 01/16/2025 2:20 AM CDT Draw exactly 12 HOURS after last dose of tacrolimus was given and just BEFORE giving next dose Linda Harden MD LAB BLOOD ORDERABLES F inal Result Performing Organization Address [facility] de Phone Number [facility] Department [place] [address] * (ABNORMAL) CBC without differential (01/15/2025 9:37 PM CDT) [facility] WBC 6.6 3.8 - 9.9 K/cumm Hgb 8.4(L) 11.9 - 15.5 g/dL [facility] Hct 26.8(L) 35.6 - 45.5 % [facility] Plt 136(L) 150 - 400 K/cumm [facility] MPV 9.5 9.1 - 12.3 fL [facility] RBC 2.75(L) 3.90 - 5.20 M/cumm [facility] MCV 97.5(H) 81.3 - 96.4 fL [facility] MCH 30.5 27.1 - 33.3 pg [facility] MCHC 31.3(L) 32.3 - 35.7 g/dL [facility] RDW CV 16.6(H) 11.1 - 14.9 % [facility] RDW SD 58.4(H) 35.7 - 48.1 fL [facility] NRBC abs 0.00 0.00 - 0.01 K/cumm [facility] Blood 01/15/2025 9:37 PM CDT 01/15/2025 10:20 PM CDT Linda Harden MD LAB BLOOD ORDERABLES F inal Result Performing Organization Address City/[facility] Co de Phone Number [facility] [address] * PTH (01/15/2025 9:37 PM CDT) Pathologist [facility] PTH 38 15 - 65 pg/mL Blood 01/15/2025 9:37 PM CDT 01/15/2025 10:20 PM CDT Linda Harden MD LAB BLOOD ORDERABLES F inal Result Performing Organization Address [facility] Co de Phone Number [facility] [place] [address] * (ABNORMAL) Magnesium (01/15/2025 9:37 PM CDT) Magnesium 2.8(H) 1.4 - 2.5 mg/dL Blood 01/15/2025 9:37 PM CDT 01/15/2025 10:20 PM CDT Linda Harden MD LAB BLOOD ORDERABLES F inal Result Performing Organization Address [facility] Co de Phone Number [facility] [place] [address] * (ABNORMAL) Renal function panel (01/15/2025 9:37 PM CDT) Sodium 131(L) 135 - 145 mmol/L Potassium, pl 4.8 3.3 - 4.9 mmol/L [facility] Chloride 95(L) 97 - 110 mmol/L [facility] CO2 24 22 - 32 mmol/L [facility] Anion gap 12 2 - 15 mmol/L [facility] BUN 82(H) 6 - 25 mg/dL [facility] Creatinine 2.73(H) 0.60 - 1.10 mg/dL [facility] Glucose 180 70 - 199 mg/dL [facility] Comment: Interpretive Data Fasting glucose >/= 126 mg/dl is diagnostic for diabetes. Fasting is defined as no caloric intake for at least 8 hours. Fasting glucose between 100 mg/dl to 125 mg/dl is diagnostic of prediabetes. In a patient with classic symptoms of hyperglycemia or hyperglycemic crisis, a random glucose >/= 200 mg/dl is diagnostic for diabetes. In the absence of unequivocal hyperglycemia, results should be confirmed by repeat testing. The classification and Diagnosis of Diabetes Diabetes Care 202; 46: S19-S40. Current interpretive data was last revised 2022. Calcium 6.6(L) 8.5 - 10.3 mg/dL [facility] Phosphorus, pl 3.4 2.3 - 4.5 mg/dL [facility] Albumin 2.8(L) 3.5 - 5.0 g/dL [facility] Blood 01/15/2025 9:37 PM CDT 01/15/2025 10:20 PM CDT us Linda Harden MD LAB BLOOD ORDERABLES F inal Result [facility] [place] [address] * TRANSESOPHAGEAL ECHO (FRANKLIN) W DOPPLER/CF WO CONTRAST (01/15/2025 11:39 AM CDT) Anatomical Region Laterality Modality Echocardiography 01/15/2025 10:5 9 AM CDT Narrative 01/15/2025 1:14 PM CDT [facility] [place] [address] Transesophageal Echocardiographic Report Patient Name: NEGRITA LINCOLN C : 1950 (74y 1m) Gender: F Study Date: 01/15/2025 10:59:50 AM Ht(Inch): Wt(Lb): 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 Performing Physician: Performed by Melody Juarez MD. FRANKLIN probe placed by Melody Juarez MD. Consent: Informed consent was obtained from the patient in writing. The risks and benefits of the procedure were explained in detail to the patient, including but not limited to the risk of aspiration, dysphagia, and esophageal perforation. After a thorough discussion of these risks and benefits, the patient agreed to proceed. Description: A complete transesophageal echocardiogram study was performed. Additional evaluation with color flow Doppler and limited spectral Doppler was performed. Continuous HR, BP, ECG, and O2 sat monitoring was performed during the procedure. The patient received pre-procedural education. Baseline vital signs and a focused history and physical were obtained. The FRANKLIN study was then performed under deep sedation with IV propofol provided by the anesthesiology service. After suitable sedation, the probe was passed without difficulty. Continuous pulse oximetry, electrocardiographic monitoring, and blood pressure monitoring were maintained throughout the procedure. No complications were noted. Medications: Medication(s) given during the procedure: Propofol 260. Pre Vitals: HR: 68 bpm. RR: 19. BP: 135/64 mmHg. Sp02: 93 %. Post Vitals: HR: 76 bpm. RR: 9. BP: 117/46 mmHg. Sp02: 100 %. INDICATIONS: Mitral valve disease and Tricuspid valve disease. FINDINGS: Study Quality: Good. Left Ventricle: The left ventricle appears dilated. Left ventricular systolic function appears mildly reduced. Right Ventricle: The right ventricle appears dilated. Right ventricular systolic function appears normal. Echo density in right ventricle suggestive of catheter, pacer lead, or ICD lead. Left Atrium: Mildly dilated left atrium. Right Atrium: Mildly dilated right atrium. Atrial Septum: Normal interatrial septum. Mitral Valve: Mitral valve leaflets appear mildly thickened. Severe mitral regurgitation. The mitral regurgitation jet is central. The mean transmitral gradient is: 1 mmHg. Aortic Valve: Trileaflet aortic valve. No aortic regurgitation seen. Tricuspid Valve: Normal tricuspid valve structure. There is severe tricuspid regurgitation. Estimated PA Pressure is 27+RA mmHg. Pulmonic Valve: Normal pulmonic valve structure. No evidence of pulmonic regurgitation. Pericardium: Normal pericardium with no pericardial effusion. Aorta: Normal aortic root. Pulmonary Artery: Normal pulmonary artery size. Pulmonary Veins: Pulmonary veins are normal in appearance and pulse Doppler interrogation shows normal systolic predominant flow. Rhythm: Normal Sinus rhythm was seen during the study. CONCLUSIONS: 1. The left ventricle appears dilated. Left ventricular systolic function appears mildly reduced. 2. The right ventricle appears dilated. Right ventricular systolic function appears normal. 3. Severe mitral regurgitation. MR is central. Vena contracta 0.5 cm, ERO by PISA .38 cm2, 3D vena contracta 0.42 cm2, No systolic flow reversal in PVs. The mechanism of MR appears to be mitral annulus dilatation. The valve is structurally normal. Although all criteria for severe MR are not present, overall MR appearss severe. The valave is likely amenable to ISSA. 4. There is severe tricuspid regurgitation. Cannot rule out PM wire in causing TR. Estimated PA Pressure is 27+RA mmHg. ATTESTATION: 1. I have personally reviewed and interpreted this study without fellow or resident. DISCLAIMER: The study images and the final report will be retained in the patient chart by the Echo Laboratory for the legally required time period. This chart constitutes the legal record of any testing performed. MEASUREMENTS: 2D/MM Value Range Doppler Value Range MV Annulus 2D 4.4 cm MV Peak Luis 1.2 m/s MV Peak PG 5.8 MV Mean PG 1.0 mmHg MR Peak Luis 5.20 m/s MR Peak PG 108.16 MR Mean PG 72.00 mmHg Mv Alias Luis 0.39 m/s MR VTI 211.0 cm MR Flow 1.57 ml/ses MR PISA 0.8 cm PISA ERO 0.3 cm2 PISA Regurgitant Volume 63.3 ml Electronically Signed By: Melody Juarez MD 01/15/2025 1:13:59 PM CDT Procedure Note Melody Odom MD - 01/15/2025 [facility] [place] [address] Transesophageal Echocardiographic Report Patient Name: NEGRITA LINCOLN C : 1950 (74y 1m) Gender: F Study Date: 01/15/2025 10:59:50 AM Ht(Inch): Wt(Lb): 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 Performing Physician: Performed by Melody Juarez MD. FRANKLIN probe placed byMelody Juarez MD. Consent: Informed consent was obtained from the patient in writing. Therisks and benefits of the procedure were explained in detail to the patient,including but not limited to the risk of aspiration, dysphagia, and esophageal perforation.After a thorough discussion of these risks and benefits, the patient agreed toproceed. Description: A complete transesophageal echocardiogram study wasperformed. Additional evaluation with color flow Doppler and limited spectral Doppler wasperformed. Continuous HR, BP, ECG, and O2 sat monitoring was performed during the procedure. Thepatient received pre-procedural education. Baseline vital signs and a focusedhistory and physical were obtained. The FRANKLIN study was then performed under deepsedation with IV propofol provided by the anesthesiology service. After suitable sedation,the probe was passed without difficulty. Continuous pulse oximetry, electrocardiographicmonitoring, and blood pressure monitoring were maintained throughout the procedure. Nocomplications were noted. Medications: Medication(s) given during the procedure: Propofol 260. Pre Vitals: HR: 68 bpm. RR: 19. BP: 135/64 mmHg. Sp02: 93 %. Post Vitals: HR: 76 bpm. RR: 9. BP: 117/46 mmHg. Sp02: 100 %. INDICATIONS: Mitral valve disease and Tricuspid valve disease. FINDINGS: Study Quality: Good. Left Ventricle: The left ventricle appears dilated. Left ventricularsystolic function appears mildly reduced. Right Ventricle: The right ventricle appears dilated. Right ventricularsystolic function appears normal. Echo density in right ventricle suggestive of catheter,pacer lead, or ICD lead. Left Atrium: Mildly dilated left atrium. Right Atrium: Mildly dilated right atrium. Atrial Septum: Normal interatrial septum. Mitral Valve: Mitral valve leaflets appear mildly thickened. Severe mitralregurgitation. The mitral regurgitation jet is central. The mean transmitral gradient is:1 mmHg. Aortic Valve: Trileaflet aortic valve. No aortic regurgitation seen. Tricuspid Valve: Normal tricuspid valve structure. There is severetricuspid regurgitation. Estimated PA Pressure is 27+RA mmHg. Pulmonic Valve: Normal pulmonic valve structure. No evidence of pulmonicregurgitation. Pericardium: Normal pericardium with no pericardial effusion. Aorta: Normal aortic root. Pulmonary Artery: Normal pulmonary artery size. Pulmonary Veins: Pulmonary veins are normal in appearance and pulseDoppler interrogation shows normal systolic predominant flow. Rhythm: Normal Sinus rhythm was seen during the study. CONCLUSIONS: 1. The left ventricle appears dilated. Left ventricular systolic functionappears mildly reduced. 2. The right ventricle appears dilated. Right ventricular systolicfunction appears normal. 3. Severe mitral regurgitation. MR is central. Vena contracta 0.5 cm, EROby PISA .38 cm2, 3D vena contracta 0.42 cm2, No systolic flow reversal in PVs. Themechanism of MR appears to be mitral annulus dilatation. The valve is structurally normal.Although all criteria for severe MR are not present, overall MR appearss severe. Thevalave is likely amenable to ISSA. 4. There is severe tricuspid regurgitation. Cannot rule out PM wire incausing TR. Estimated PA Pressure is 27+RA mmHg. ATTESTATION: 1. I have personally reviewed and interpreted this study without fellow orresident. DISCLAIMER: The study images and the final report will be retained in the patientchart by the [facility] for the legally required time period. This chart constitutesthe legal record of any testing performed. MEASUREMENTS: 2D/MM Value Range Doppler ValueRange MV Annulus 2D 4.4 cm MV Peak Luis 1.2 m/s MV Peak PG 5.8 MV Mean PG 1.0 mmHg MR Peak Luis 5.20 m/s MR Peak PG 108.16 MR Mean PG 72.00 mmHg Mv Alias Luis 0.39 m/s MR VTI 211.0 cm MR Flow 1.57 ml/ses MR PISA 0.8 cm PISA ERO 0.3 cm2 PISA Regurgitant Volume 63.3 ml Electronically Signed By: Melody Juarez MD 01/15/2025 1:13:59 PM CDT us Linda Harden MD CV ECHO PROCEDURES Fin al Result * Tacrolimus level trough (01/15/2025 5:35 AM CDT) Tacrolimus trough 4.9 ng/mL Comment: Interpretive Data Testing performed by liquid chromatography-tandem mass spectrometry. Therapeutic concentrations vary depending on type of transplanted organ and time elapsed since transplant. Typical trough concentrations range from 5-15 ng/mL. This test was developed and its performance characteristics determined by the [facility] consistent with CLIA requirements. This test has not been cleared or approved by the [place] Food and Drug administration. Current interpretive data last reviewed 2020. Blood 01/15/2025 5:35 AM CDT 01/15/2025 6:29 AM CDT Narrative [facility] - 01/15/2025 10:10 AM CDT Draw exactly 12 HOURS after last dose of tacrolimus was given and just BEFORE giving next dose us Linda Harden MD LAB BLOOD ORDERABLES F inal Result [facility] Department [place] [address] * (ABNORMAL) eGFR (01/14/2025 9:26 PM CDT) [facility] eGFR 20(L) >=60 mL/min/1. 73 m2 Comment: Interpretive Data Reference Interval Normal >/= 90 mL/min/1.73m2 Mildly decreased* 60 - 89 mL/min/1.73m2 Mildly to moderately decreased 45 - 59 mL/min/1.73m2 Moderately to severely decreased 30 - 44 mL/min/1.73m2 Severely decreased 15 - 29 mL/min/1.73m2 Kidney Failure < 15 mL/min/1.73m2 *Relative to young adult level Estimated glomerular filtration rate is determined by the 2020 CKD-EPI equation recommended by the National Kidney Foundation (A Unifying Approach to GFR Estimation: Recommendations of the NKF-ASK Task Force on Reassessing the Inclusion of Race in Diagnosing Kidney Disease, JASN 2020). The CKD-EPI equation should not be used for patients with unstable renal function and has not been validated in children and those over 70. Current interpretive data was last reviewed 2021. Blood 01/14/2025 9:26 PM CDT 01/14/2025 10:23 PM CDT us Linda Harden MD LAB BLOOD ORDERABLES F inal Result Performing Organization Address [facility] Co de Phone Number [facility] [place] [address] * Tacrolimus level trough (01/14/2025 9:26 PM CDT) Tacrolimus trough 6.5 ng/mL Comment: Interpretive Data Testing performed by liquid chromatography-tandem mass spectrometry. Therapeutic concentrations vary depending on type of transplanted organ and time elapsed since transplant. Typical trough concentrations range from 5-15 ng/mL. This test was developed and its performance characteristics determined by the [facility] consistent with CLIA requirements. This test has not been cleared or approved by the US Food and Drug administration. Current interpretive data last reviewed 2020. Blood 01/14/2025 9:26 PM CDT 01/14/2025 10:25 PM CDT Narrative [facility] - 01/15/2025 5:15 AM CDT Draw exactly 12 HOURS after last dose of tacrolimus was given and just BEFORE giving next dose us Linda Harden MD LAB BLOOD ORDERABLES F inal Result Performing Organization Address [facility] Co de Phone Number [facility] [place] [address] * (ABNORMAL) CBC without differential (01/14/2025 9:26 PM CDT) WBC 6.0 3.8 - 9.9 K/cumm Hgb 8.9(L) 11.9 - 15.5 g/dL [facility] Hct 28.6(L) 35.6 - 45.5 % [facility] Plt 147(L) 150 - 400 K/cumm [facility] MPV 9.4 9.1 - 12.3 fL [facility] RBC 2.98(L) 3.90 - 5.20 M/cumm [facility] MCV 96.0 81.3 - 96.4 fL [facility] MCH 29.9 27.1 - 33.3 pg [facility] MCHC 31.1(L) 32.3 - 35.7 g/dL [facility] RDW CV 16.5(H) 11.1 - 14.9 % [facility] RDW SD 58.2(H) 35.7 - 48.1 fL [facility] NRBC abs 0.00 0.00 - 0.01 K/cumm [facility] Blood 01/14/2025 9:26 PM CDT 01/14/2025 10:24 PM CDT us Linda Harden MD LAB BLOOD ORDERABLES F inal Result Performing Organization Address City/[facility]/ZIP Co de Phone Number [facility] [place] [address] * Magnesium (01/14/2025 9:26 PM CDT) Pathologist [facility] Magnesium 1.7 1.4 - 2.5 mg/dL Blood 01/14/2025 9:26 PM CDT 01/14/2025 10:23 PM CDT Linda Harden MD LAB BLOOD ORDERABLES F inal Result Performing Organization Address City/[facility]/ZIP Co de Phone Number [facility] [place] [address] * (ABNORMAL) Renal function panel (01/14/2025 9:26 PM CDT) Sodium 133(L) 135 - 145 mmol/L Potassium, pl 4.8 3.3 - 4.9 mmol/L [facility] Chloride 97 97 - 110 mmol/L [facility] CO2 24 22 - 32 mmol/L [facility] Anion gap 12 2 - 15 mmol/L [facility] BUN 78(H) 6 - 25 mg/dL [facility] Creatinine 2.47(H) 0.60 - 1.10 mg/dL [facility] Glucose 135 70 - 199 mg/dL [facility] Comment: Interpretive Data Fasting glucose >/= 126 mg/dl is diagnostic for diabetes. Fasting is defined as no caloric intake for at least 8 hours. Fasting glucose between 100 mg/dl to 125 mg/dl is diagnostic of prediabetes. In a patient with classic symptoms of hyperglycemia or hyperglycemic crisis, a random glucose >/= 200 mg/dl is diagnostic for diabetes. In the absence of unequivocal hyperglycemia, results should be confirmed by repeat testing. The classification and Diagnosis of Diabetes Diabetes Care 2021; 46: S19-S40. Current interpretive data was last revised 2022. Calcium 6.6(L) 8.5 - 10.3 mg/dL [facility] Phosphorus, pl 3.5 2.3 - 4.5 mg/dL [facility] Albumin 2.9(L) 3.5 - 5.0 g/dL [facility] Blood 01/14/2025 9:26 PM CDT 01/14/2025 10:23 PM CDT us Linda Harden MD LAB BLOOD ORDERABLES F inal Result [facility] Department [place] [address] * Tacrolimus level trough (01/14/2025 5:03 AM CDT) [facility] Tacrolimus trough 4.9 ng/mL Comment: Interpretive Data Testing performed by liquid chromatography-tandem mass spectrometry. Therapeutic concentrations vary depending on type of transplanted organ and time elapsed since transplant. Typical trough concentrations range from 5-15 ng/mL. This test was developed and its performance characteristics determined by the [facility] consistent with CLIA requirements. This test has not been cleared or approved by the US Food and Drug administration. Current interpretive data last reviewed 2020. Blood 01/14/2025 5:03 AM CDT 01/14/2025 6:21 AM CDT Narrative [facility] - 01/14/2025 10:22 AM CDT Draw exactly 12 HOURS after last dose of tacrolimus was given and just BEFORE giving next dose Linda Harden MD LAB BLOOD ORDERABLES F inal Result Performing Organization Address City/[facility] Co de Phone Number [facility] [place] [address] * (ABNORMAL) eGFR (01/13/2025 8:26 PM CDT) eGFR 18(L) >=60 mL/min/1. 73 m2 Comment: Interpretive Data Reference Interval Normal >/= 90 mL/min/1.73m2 Mildly decreased* 60 - 89 mL/min/1.73m2 Mildly to moderately decreased 45 - 59 mL/min/1.73m2 Moderately to severely decreased 30 - 44 mL/min/1.73m2 Severely decreased 15 - 29 mL/min/1.73m2 Kidney Failure < 15 mL/min/1.73m2 *Relative to young adult level Estimated glomerular filtration rate is determined by the 2020 CKD-EPI equation recommended by the National Kidney Foundation (A Unifying Approach to GFR Estimation: Recommendations of the NKF-ASK Task Force on Reassessing the Inclusion of Race in Diagnosing Kidney Disease, JASN 2020). The CKD-EPI equation should not be used for patients with unstable renal function and has not been validated in children and those over 70. Current interpretive data was last reviewed 2021. Blood 01/13/2025 8:26 PM CDT 01/13/2025 8:47 PM CDT Linda Harden MD LAB BLOOD ORDERABLES F inal Result Performing Organization Address City/[facility]/ZIP Co de Phone Number [facility] Department [place] [address] * Tacrolimus level trough (01/13/2025 8:26 PM CDT) [facility] Tacrolimus trough 5.1 ng/mL Comment: Interpretive Data Testing performed by liquid chromatography-tandem mass spectrometry. Therapeutic concentrations vary depending on type of transplanted organ and time elapsed since transplant. Typical trough concentrations range from 5-15 ng/mL. This test was developed and its performance characteristics determined by the [facility] consistent with CLIA requirements. This test has not been cleared or approved by the US Food and Drug administration. Current interpretive data last reviewed 2020. Blood 01/13/2025 8:26 PM CDT 01/13/2025 8:[address] [facility] - 01/14/2025 4:02 AM CDT Draw exactly 12 HOURS after last dose of tacrolimus was given and just BEFORE giving next dose us Linda Harden MD LAB BLOOD ORDERABLES F inal Result [facility] [place] [address] * (ABNORMAL) CBC without differential (01/13/2025 8:26 PM CDT) [facility] WBC 5.3 3.8 - 9.9 K/cumm Hgb 9.3(L) 11.9 - 15.5 g/dL [facility] Hct 30.0(L) 35.6 - 45.5 % [facility] Plt 146(L) 150 - 400 K/cumm [facility] MPV 9.6 9.1 - 12.3 fL [facility] RBC 3.09(L) 3.90 - 5.20 M/cumm [facility] MCV 97.1(H) 81.3 - 96.4 fL [facility] MCH 30.1 27.1 - 33.3 pg [facility] MCHC 31.0(L) 32.3 - 35.7 g/dL [facility] RDW CV 16.9(H) 11.1 - 14.9 % [facility] RDW SD 59.7(H) 35.7 - 48.1 fL [facility] NRBC abs 0.00 0.00 - 0.01 K/cumm [facility] Blood 01/13/2025 8:26 PM CDT 01/13/2025 8:47 PM CDT Linda Harden MD LAB BLOOD ORDERABLES F inal Result Performing Organization Address City/[facility] Co de Phone Number [facility] Department [place] [address] * Magnesium (01/13/2025 8:26 PM CDT) [facility] Magnesium 1.8 1.4 - 2.5 mg/dL Blood 01/13/2025 8:26 PM CDT 01/13/2025 8:47 PM CDT Linda Harden MD LAB BLOOD ORDERABLES F inal Result Performing Organization Address City/[facility] de Phone Number [facility] [place] [address] * (ABNORMAL) Renal function panel (01/13/2025 8:26 PM CDT) [facility] Sodium 139 135 - 145 mmol/L Potassium, pl 4.4 3.3 - 4.9 mmol/L [facility] Chloride 101 97 - 110 mmol/L [facility] CO2 25 22 - 32 mmol/L [facility] Anion gap 13 2 - 15 mmol/L [facility] BUN 77(H) 6 - 25 mg/dL [facility] Creatinine 2.72(H) 0.60 - 1.10 mg/dL [facility] Glucose 138 70 - 199 mg/dL [facility] Comment: Interpretive Data Fasting glucose >/= 126 mg/dl is diagnostic for diabetes. Fasting is defined as no caloric intake for at least 8 hours. Fasting glucose between 100 mg/dl to 125 mg/dl is diagnostic of prediabetes. In a patient with classic symptoms of hyperglycemia or hyperglycemic crisis, a random glucose >/= 200 mg/dl is diagnostic for diabetes. In the absence of unequivocal hyperglycemia, results should be confirmed by repeat testing. The classification and Diagnosis of Diabetes Diabetes Care 2021; 46: S19-S40. Current interpretive data was last revised 2022. Calcium 7.0(L) 8.5 - 10.3 mg/dL [facility] Phosphorus, pl 4.1 2.3 - 4.5 mg/dL [facility] Albumin 3.4(L) 3.5 - 5.0 g/dL [facility] Blood 01/13/2025 8:26 PM CDT 01/13/2025 8:47 PM CDT Linda Harden MD LAB BLOOD ORDERABLES F inal Result Performing Organization Address [facility] de Phone Number [facility] Department [place] [address] * (ABNORMAL) Protein / creatinine ratio, urine, random (01/13/2025 5:20 PM CDT) Protein, ur, quant 30.4 mg/dL Comment: Interpretive Data No reference range established. Current interpretive data was last revised 2019. Creatinine Ur 37.4 mg/dL [facility] Comment: Interpretive Data No reference range established. Current interpretive data was last revised 2019. Protein/creatinin e ratio 812.8(H) 0.0 - 180.0 mg/g CR [facility] Urine 01/13/2025 5:20 PM CDT 01/13/2025 5:55 PM CDT Linda Harden MD LAB URINE ORDERABLES F inal Result Performing Organization Address [facility] de Phone Number [facility] [place] [address] * Infection Prevention Pancho auris PCR, surveillance Axilla/Groin (01/13/2025 8:29 AM CDT) Pathologist [facility] Pancho auris DNA Not Detected Not Detected [facility] Comment: Interpretive Data Testing performed by [facility] using the Luz viji [id number] Pancho auris assay. This assay detects DNA from Pancho auris using Real-Time PCR. This assay is laboratory developed and is not cleared by the [place] Food and Drug Administration. The performance characteristics have been verified by the [facility]. Axilla/Groin 01/13/2025 8:29 AM CDT 01/13/2025 9:45 AM CDT Hoang Son MD LAB MICROBIOLOGY - GENERAL ORDER FILI Final Result Performing Organization Address [facility] Co de Phone Number [facility] [place] [address] [facility] * Tacrolimus level trough (01/13/2025 5:09 AM CDT) Pathologist [facility] Tacrolimus trough 4.6 ng/mL Comment: Interpretive Data Testing performed by liquid chromatography-tandem mass spectrometry. Therapeutic concentrations vary depending on type of transplanted organ and time elapsed since transplant. Typical trough concentrations range from 5-15 ng/mL. This test was developed and its performance characteristics determined by the [facility] consistent with CLIA requirements. This test has not been cleared or approved by the [place] Food and Drug administration. Current interpretive data last reviewed 2020. Blood 01/13/2025 5:09 AM CDT 01/13/2025 6:15 AM CDT Narrative [facility] - 01/13/2025 11:20 AM CDT Draw exactly 12 HOURS after last dose of tacrolimus was given and just BEFORE giving next dose Linda Harden MD LAB BLOOD ORDERABLES F inal Result Performing Organization Address City/[facility]/ZIP Co de Phone Number [facility] [place] [address] * (ABNORMAL) eGFR (01/12/2025 9:26 PM CDT) eGFR 18(L) >=60 mL/min/1. 73 m2 Comment: Interpretive Data Reference Interval Normal >/= 90 mL/min/1.73m2 Mildly decreased* 60 - 89 mL/min/1.73m2 Mildly to moderately decreased 45 - 59 mL/min/1.73m2 Moderately to severely decreased 30 - 44 mL/min/1.73m2 Severely decreased 15 - 29 mL/min/1.73m2 Kidney Failure < 15 mL/min/1.73m2 *Relative to young adult level Estimated glomerular filtration rate is determined by the 2020 CKD-EPI equation recommended by the National Kidney Foundation (A Unifying Approach to GFR Estimation: Recommendations of the NKF-ASK Task Force on Reassessing the Inclusion of Race in Diagnosing Kidney Disease, JASN 2020). The CKD-EPI equation should not be used for patients with unstable renal function and has not been validated in children and those over 70. Current interpretive data was last reviewed 2021. Blood 01/12/2025 9:26 PM CDT 01/12/2025 10:01 PM CDT us Linda Harden MD LAB BLOOD ORDERABLES F inal Result [facility] Department [place] [address] * Tacrolimus level trough (01/12/2025 9:26 PM CDT) Tacrolimus trough 4.7 ng/mL Comment: Interpretive Data Testing performed by liquid chromatography-tandem mass spectrometry. Therapeutic concentrations vary depending on type of transplanted organ and time elapsed since transplant. Typical trough concentrations range from 5-15 ng/mL. This test was developed and its performance characteristics determined by the [facility] consistent with CLIA requirements. This test has not been cleared or approved by the US Food and Drug administration. Current interpretive data last reviewed 2020. Blood 01/12/2025 9:26 PM CDT 01/12/2025 10:03 PM CDT Narrative [facility] - 01/13/2025 2:44 AM CDT Draw exactly 12 HOURS after last dose of tacrolimus was given and just BEFORE giving next dose Linda Harden MD LAB BLOOD ORDERABLES F inal Result Performing Organization Address [facility]/ZIP Co de Phone Number [facility] Department [place] [address] * (ABNORMAL) Urinalysis reflex to microscopic and culture Urine (01/12/2025 9:26 PM CDT) Color, ur Straw Yellow Clarity, ur Cloudy(A) Clear [facility] Specific gravity, ur 1.009 1.003 - 1.030 [facility] pH, urine 6.0 [facility] Comment: Interpretive Data U rine pH is affected by diet, medications, systemic acid-base disturbances, and renal tubular function. pH may affect urinary stone formation. For example, urine pH below 6.0 may help reduce the tendency for calcium phosphate stones and pH greater than 6.0 may reduce the tendency for uric acid stone formation. Source: [facility] Current Interpretive Data was last revised on 2017 Protein, ur ql 1+(A) Negative [facility] Glucose, ur ql Negative Negative [facility] Ketones, ur Negative Negative [facility] Bilirubin, ur Negative Negative [facility] Blood, ur Trace(A) Negative [facility] Urobilinogen, ur <2.0 <2.0 mg/dL [facility] Nitrite, ur Negative Negative [facility] Leukocyte esterase, ur 3+(A) Negative [facility] UA reflex comment Reflex to microscopic UA will be performed. [facility] Urine 01/12/2025 9:26 PM CDT 01/12/2025 9:56 PM CDT us Linda Harden MD LAB MICROBIOLOGY - GEN ERAL ORDERABLES Final Result Performing Organization Address [facility]/ZIP Co de Phone Number [facility] Department [place] [address] * (ABNORMAL) Urinalysis, microscopic only (01/12/2025 9:26 PM CDT) Pathologist [facility] WBC, ur >50(A) 0 - 5 /HPF RBC, ur 21-50(A) 0 - 2 /HPF [facility] Epithelial cells, squamous, ur 6-10(A) 0 - 5 /HPF [facility] Comment:Suggestive of contam ination. Consider recollection by clean catch. Epithelial cells, renal, ur 1-5(A) 0 - 0 /HPF [facility] Epithelial cells, transitional, ur 1-5 0 - 0 /HPF [facility] Bacteria, ur 1+(A) [facility] Mucous, ur Present(A) [facility] Hyaline casts, ur 1-5 0 - 10 /LPF [facility] Culture Reflex Comment Reflex to urine culture will be performed. [facility] Urine 01/12/2025 9:26 PM CDT 01/12/2025 9:56 PM CDT us Linda Harden MD LAB URINE ORDERABLES F inal Result [facility] Department [place] [address] * (ABNORMAL) CBC without differential (01/12/2025 9:26 PM CDT) Pathologist [facility] WBC 5.1 3.8 - 9.9 K/cumm Hgb 9.0(L) 11.9 - 15.5 g/dL [facility] Hct 29.2(L) 35.6 - 45.5 % [facility] Plt 136(L) 150 - 400 K/cumm [facility] MPV 9.7 9.1 - 12.3 fL [facility] RBC 3.01(L) 3.90 - 5.20 M/cumm [facility] MCV 97.0(H) 81.3 - 96.4 fL [facility] MCH 29.9 27.1 - 33.3 pg [facility] MCHC 30.8(L) 32.3 - 35.7 g/dL [facility] RDW CV 17.0(H) 11.1 - 14.9 % [facility] RDW SD 59.7(H) 35.7 - 48.1 fL [facility] NRBC abs 0.00 0.00 - 0.01 K/cumm [facility] Blood 01/12/2025 9:26 PM CDT 01/12/2025 10:02 PM CDT Linda Harden MD LAB BLOOD ORDERABLES F inal Result Performing Organization Address [facility] de Phone Number [facility] Department [place] [address] * Urine culture Urine (01/12/2025 9:26 PM CDT) Report Final Report: Growth indicative of contamination with periurethral dash. Please submit a new specimen with special attention given to the collection process and to prompt transport to the laboratory. Organism GROWTH INDICATES CONTAM WITH PERIURETHRAL DASH. [facility] Urine 01/12/2025 9:26 PM CDT 01/12/2025 11:32 PM CDT Narrative [facility] - 01/15/2025 4:05 PM CDT Urine culture reflexed based upon urinalysis results. Testing performed by [facility] ([phone]) Linda Harden MD LAB MICROBIOLOGY - GEN ERAL ORDERABLES Final Result Performing Organization Address [facility] Co de Phone Number [facility] Department [place] [address] * Magnesium (01/12/2025 9:26 PM CDT) Magnesium 1.9 1.4 - 2.5 mg/dL Blood 01/12/2025 9:26 PM CDT 01/12/2025 10:01 PM CDT Linda Harden MD LAB BLOOD ORDERABLES F inal Result Performing Organization Address City/[facility]/ZIP Co de Phone Number [facility] Department [place] [address] * (ABNORMAL) Renal function panel (01/12/2025 9:26 PM CDT) Sodium 138 135 - 145 mmol/L Potassium, pl 4.4 3.3 - 4.9 mmol/L [facility] Chloride 102 97 - 110 mmol/L [facility] CO2 25 22 - 32 mmol/L [facility] Anion gap 11 2 - 15 mmol/L [facility] BUN 82(H) 6 - 25 mg/dL [facility] Creatinine 2.65(H) 0.60 - 1.10 mg/dL [facility] Glucose 125 70 - 199 mg/dL [facility] Comment: Interpretive Data Fasting glucose >/= 126 mg/dl is diagnostic for diabetes. Fasting is defined as no caloric intake for at least 8 hours. Fasting glucose between 100 mg/dl to 125 mg/dl is diagnostic of prediabetes. In a patient with classic symptoms of hyperglycemia or hyperglycemic crisis, a random glucose >/= 200 mg/dl is diagnostic for diabetes. In the absence of unequivocal hyperglycemia, results should be confirmed by repeat testing. The classification and Diagnosis of Diabetes Diabetes Care 202; 46: S19-S40. Current interpretive data was last revised 2022. Calcium 7.1(L) 8.5 - 10.3 mg/dL [facility] Phosphorus, pl 4.3 2.3 - 4.5 mg/dL [facility] Albumin 3.2(L) 3.5 - 5.0 g/dL [facility] Blood 01/12/2025 9:26 PM CDT 01/12/2025 10:01 PM CDT us Linda Harden MD LAB BLOOD ORDERABLES F inal Result [facility] Department [place] [address] * US Renal Transplant W Dopplers (01/12/2025 8:15 PM CDT) Anatomical Region Laterality Modality Kidney N/A Ultrasound 01/13/2025 8:48 AM CDT Impressions 01/13/2025 8:56 AM CDT 1. Mildly elevated transplant kidney resistive indices. 2. No Doppler evidence of transplant renal artery stenosis. 3. Normal transplant kidney morphology without hydronephrosis. Dictated by: Carmen Fernandez MD The radiology attending physician has personally reviewed this study, and had reviewed and/or edited this written report and agrees with it. Electronically signed by: Sara Miller M.D. Narrative 01/13/2025 8:56 AM CDT EXAMINATION: RENAL TRANSPLANT ULTRASOUND WITH DOPPLER HISTORY: 74-year-old woman with renal transplant 2011 presenting with acute kidney injury. COMPARISON: CT 12/26/2024 FINDINGS: The right iliac fossa transplant kidney measures 9.7 cm in length. Echogenicity is normal. There is no hydronephrosis. There are no renal calculi visualized. No perinephric fluid collection is seen. Bladder: The urinary bladder is normal Color Doppler and spectral analysis were used to evaluate the renal vasculature. Resistive indices in the transplant segmental arteries range from 0.77 to 0.8, and are mildly elevated. No focal flow abnormalities were seen in the transplant renal artery on color Doppler. The peak systolic velocities at the origin, mid aspect, and hilum of the transplant renal artery are 124 cm/sec, 93 cm/sec, and 67 cm/sec, respectively. The proximal external iliac artery peak systolic velocity is 119 cm/sec. The visualized portions of the transplant renal vein are patent. There is no thrombosis. Procedure Note Sara Miller MD - 01/13/2025 EXAMINATION: RENAL TRANSPLANT ULTRASOUND WITH DOPPLER HISTORY: 74-year-old woman with renal transplant 2011 presenting with acute kidney injury. COMPARISON: CT 12/26/2024 FINDINGS: The right iliac fossa transplant kidney measures 9.7 cm in length. Echogenicity is normal. There is no hydronephrosis. There are no renal calculi visualized. No perinephric fluid collection is seen. Bladder: The urinary bladder is normal Color Doppler and spectral analysis were used to evaluate the renal vasculature. Resistive indices in the transplant segmental arteries range from 0.77 to 0.8, and are mildly elevated. No focal flow abnormalities were seen in the transplant renal artery on color Doppler. The peak systolic velocities at the origin, mid aspect, and hilum of the transplant renal artery are 124 cm/sec, 93 cm/sec, and 67 cm/sec, respectively. The proximal external iliac artery peak systolic velocity is 119 cm/sec. The visualized portions of the transplant renal vein are patent. There is no thrombosis. IMPRESSION: 1. Mildly elevated transplant kidney resistive indices. 2. No Doppler evidence of transplant renal artery stenosis. 3. Normal transplant kidney morphology without hydronephrosis. Dictated by: Carmen Fernandez MD The radiology attending physician has personally reviewed this study, and had reviewed and/or edited this written report and agrees with it. Electronically signed by: Sara Miller M.D. us Linda Harden MD IM US PROCEDURES Мария l Result * BK virus PCR quantitative Blood (01/12/2025 5:18 PM CDT) [facility] BKV DNA result, pl Not Detected [facility] Comment: The quantifiable range of this assay is 21.5 IU/mL to 100,000,000 IU/mL (1.33 log IU/mL to 8.00 log IU/mL). Testing was performed by the VIJI 6800 BKV Quantatitive Test version 2.0 ([employer] Testing performed at [facility] Current Interpretive Data was last revised on 2021. Blood 01/12/2025 5:18 PM CDT 01/12/2025 5:55 PM CDT Linda Harden MD LAB MICROBIOLOGY - GEN ERAL ORDERABLES Final Result [facility] Department [place] [address] [facility] * Cytomegalovirus (CMV) DNA PCR, quantitative Blood (01/12/2025 5:18 PM CDT) [facility] CMV DNA Not Detected [facility] Comment: Interpretive Data: The quantifiable range of this assay is 34 IUnits/mL to 10,000,000 IUnits/mL (1.53 log IUnits/mL to 7.0 log IUnits/mL). Testing was performed by the VIJI 6800 CMV Test ([employer] Testing performed at [facility]. Current interpretive data was last revised on 2021. Blood 01/12/2025 5:18 PM CDT 01/12/2025 5:55 PM CDT Linda Harden MD LAB MICROBIOLOGY - GEN ERAL ORDERABLES Final Result Performing Organization Address City/[facility]/ZIP Co de Phone Number [facility] [place] [address] [facility] * (ABNORMAL) Lizy-Burton Virus (EBV) DNA Quantitative Blood (01/12/2025 5:18 PM CDT) [facility] EBV DNA Result Detected( A) [facility] Comment: Interpretive Data The quantifiable range of this assay is 35 IUnits/mL to 100,000,000 IUnits/mL (1.54 log IUnits/mL to 8.0 log IUnits/mL). Testing was performed by the VIJI 6800 EBV Test ([employer] Testing performed at [facility]. Current interpretive data was last revised on 2023. EBV DNA IU/mL <35 IUnits/mL [facility] EBV DNA log IU/mL <1.54 log IUnits/mL [facility] Blood 01/12/2025 5:18 PM CDT 01/12/2025 5:55 PM CDT Linda Harden MD LAB MICROBIOLOGY - GEN ERAL ORDERABLES Final Result Performing Organization Address City/[facility]/ZIP Co de Phone Number [facility] [place] [address] [facility] * (ABNORMAL) Lizy-Burton virus (EBV) antibody panel Blood (01/12/2025 5:18 PM CDT) EBV nuclear Ab Negative Negative Comment:No detectable IgG an tibody to EBV Nuclear Antigen. EBV VCA IgG Positive(A) Negative [facility] Comment:Indicates the presen ce of antibody; 90% of the adult population will have been infected with EBV sometime in the past. EBV VCA IgM Negative Negative [facility] Comment:No detectable IgM an tibody to EBV-VCA. A negative result indicates no current infection with EBV. If clinical suspicion of acute EBV infection is present, testing should be repeated after one week. EBV interp See Comment [facility] Comment: Results indicate infection with EBV at some time (EBV VCA IgG positive). However, the time of the infection cannot be predicted (ie, recent or past) since antibodies to EBNA usually develop after primary infection (recent) or, alternatively, approximately 5% to 10% of patients with EBV never develop antibodies to EBNA (past). Blood 01/12/2025 5:18 PM CDT 01/12/2025 5:59 PM CDT us Linda Harden MD LAB MICROBIOLOGY - GEN ERAL ORDERABLES Final Result Performing Organization Address City/[facility]/ZIP Co de Phone Number [facility] [place] [address] * Urea nitrogen, urine, random (01/12/2025 5:18 PM CDT) Pathologist [facility] Urea nitrogen, ur 280 mg/dL Comment: Interpretive Data No reference range established. Current interpretive data was last revised 2019. Urine 01/12/2025 5:18 PM CDT 01/12/2025 5:59 PM CDT Linda Harden MD LAB URINE ORDERABLES F inal Result Performing Organization Address [facility]/ZIP Co de Phone Number [facility] Department [place] [address] * Sodium, urine, random (01/12/2025 5:18 PM CDT) Sodium, ur 75 mmol/L Comment: Interpretive Data No reference range established. Current interpretive data was last revised 2019. Urine 01/12/2025 5:18 PM CDT 01/12/2025 5:59 PM CDT us Linda Harden MD LAB URINE ORDERABLES F inal Result Performing Organization Address [facility] Co de Phone Number [facility] [place] [address] * Creatinine, urine, random (01/12/2025 5:18 PM CDT) Creatinine Ur 30.9 mg/dL Comment: Interpretive Data No reference range established. Current interpretive data was last revised 2019. Urine 01/12/2025 5:18 PM CDT 01/12/2025 5:59 PM CDT us Linda Harden MD LAB URINE ORDERABLES F inal Result Performing Organization Address [facility] de Phone Number [facility] [place] [address] * (ABNORMAL) Calcium, ionized (01/12/2025 6:47 AM CDT) Calcium, Ionized 3.76(L) 4.50 - 5.10 mg/dL Blood 01/12/2025 6:47 AM CDT 01/12/2025 7:25 AM CDT us Elijah Florez MD LAB BLOOD ORDERABLES Final R esult Performing Organization Address [facility] Co de Phone Number [facility] [place] [address] * Tacrolimus level trough (01/12/2025 6:41 AM CDT) Tacrolimus trough 4.0 ng/mL Comment: Interpretive Data Testing performed by liquid chromatography-tandem mass spectrometry. Therapeutic concentrations vary depending on type of transplanted organ and time elapsed since transplant. Typical trough concentrations range from 5-15 ng/mL. This test was developed and its performance characteristics determined by the [facility] consistent with CLIA requirements. This test has not been cleared or approved by the [place] Food and Drug administration. Current interpretive data last reviewed 2020. Blood 01/12/2025 6:41 AM CDT 01/12/2025 7:35 AM CDT Narrative [facility] - 01/12/2025 11:34 AM CDT Draw exactly 12 HOURS after last dose of tacrolimus was given and just BEFORE giving next dose us Linda Harden MD LAB BLOOD ORDERABLES F inal Result [facility] Department [place] [address] * (ABNORMAL) eGFR (01/11/2025 11:13 PM CHANGE MANAGEMENT ANALYST) Pathologist [facility] eGFR 18(L) >=60 mL/min/1. 73 m2 Comment: Interpretive Data Reference Interval Normal >/= 90 mL/min/1.73m2 Mildly decreased* 60 - 89 mL/min/1.73m2 Mildly to moderately decreased 45 - 59 mL/min/1.73m2 Moderately to severely decreased 30 - 44 mL/min/1.73m2 Severely decreased 15 - 29 mL/min/1.73m2 Kidney Failure < 15 mL/min/1.73m2 *Relative to young adult level Estimated glomerular filtration rate is determined by the 2020 CKD-EPI equation recommended by the National Kidney Foundation (A Unifying Approach to GFR Estimation: Recommendations of the NKF-ASK Task Force on Reassessing the Inclusion of Race in Diagnosing Kidney Disease, JASN 2020). The CKD-EPI equation should not be used for patients with unstable renal function and has not been validated in children and those over 70. Current interpretive data was last reviewed 2021. Blood 01/11/2025 11:1 3 PM CHANGE MANAGEMENT ANALYST 01/12/2025 12:06 AM CHANGE MANAGEMENT ANALYST us Bunny Islas MD PhD LAB BLOOD ORDERABLES Final Result [facility] [place] [address] * (ABNORMAL) Differential, auto (01/11/2025 11:13 PM CHANGE MANAGEMENT ANALYST) Neutrophil abs 1.3(L) 1.5 - 6.5 K/cumm Imm gran abs 0.1 0.0 - 0.1 K/cumm [facility] Lymphocyte abs 2.1 0.8 - 3.3 K/cumm [facility] Monocyte abs 1.0(H) 0.2 - 0.8 K/cumm [facility] Eosinophil abs 0.1 0.0 - 0.5 K/cumm [facility] Basophil abs 0.0 0.0 - 0.1 K/cumm [facility] Neutrophil pct 28.7 % [facility] Comment: Interpretive Data Percent cell count reference ranges are not reported, since discordance with absolute values may lead to misinterpretation of CBC data. Current Interpretive Data was last revised on 2018. Imm gran pct 1.1 % [facility] Comment: Interpretive Data Percent cell count reference ranges are not reported, since discordance with absolute values may lead to misinterpretation of CBC data. Current Interpretive Data was last revised on 2018. Lymphocyte pct 46.4 % [facility] Comment: Interpretive Data Percent cell count reference ranges are not reported, since discordance with absolute values may lead to misinterpretation of CBC data. Current Interpretive Data was last revised on 2018. Monocyte pct 20.8 % [facility] Comment: Interpretive Data Percent cell count reference ranges are not reported, since discordance with absolute values may lead to misinterpretation of CBC data. Current Interpretive Data was last revised on 2018. Eosinophil pct 2.6 % [facility] Comment: Interpretive Data Percent cell count reference ranges are not reported, since discordance with absolute values may lead to misinterpretation of CBC data. Current Interpretive Data was last revised on 2018. Basophil pct 0.4 % [facility] Comment: Interpretive Data Percent cell count reference ranges are not reported, since discordance with absolute values may lead to misinterpretation of CBC data. Current Interpretive Data was last revised on 2018. Blood 01/11/2025 11:1 3 PM CHANGE MANAGEMENT ANALYST 01/12/2025 12:06 AM CHANGE MANAGEMENT ANALYST us Bunny Islas MD PhD LAB BLOOD ORDERABLES Final Result [facility] Department [place] [address] * (ABNORMAL) Pro B-type natriuretic peptide (01/11/2025 11:13 PM CHANGE MANAGEMENT ANALYST) NT-proBNP 10,879(H) <=450 pg/mL Comment: Interpretive Comments: A. Dyspnea in Acute Care Setting All Ages: < 300 pg/ml, acute heart failure unlikely. < 50 yrs: 300 - 450 pg/ml, further investigation warranted. > 450 pg/ml, acute heart failure likely. 50 - 74 yrs: 300 - 900 pg/ml, further investigation warranted. > 900 pg/ml, acute heart failure likely . > or = 75 yrs: 450 - 1800 pg/ml, further investigation warranted. > 1800 pg/ml, acute heart failure likely. B. Non-acute Setting < 75 yrs < 125 pg/ml, rules out heart failure. > or = 125 pg/ml, further investigation warranted. > or = 75 yrs < 450 pg/ml, rules out heart failure. > or = 450 pg/ml, further investigation warranted. - Knowledge of each individual patient's NT-proBNP range may be more useful than using similar cut-points for every patient. Please note that marked elevations in NT-proBNP levels may be observed in state other than Left Ventricular Congestive Failure, including: acute coronary syndromes, right heart strain/failure (including pulmonary embolism and cor pulmonale), critical illness, renal failure, as well as advanced age. - References: 1. Aida ASHFORD et.al. Eur Heart J. 2006:27:330-337. 2. Keith SILVERMAN, Chela MIRELES. J. AM Cortez Cardiol: Cardiovasc Imag. 2009;2: 216- 225. Interpretive Data Last Revised Date: 2018. Blood 01/11/2025 11:1 3 PM CHANGE MANAGEMENT ANALYST 01/12/2025 12:06 AM CHANGE MANAGEMENT ANALYST us Bunny Islas MD PhD LAB BLOOD ORDERABLES Final Result Performing Organization Address City/[facility]/ZIP Co de Phone Number [facility] Department [place] [address] * (ABNORMAL) CBC with auto differential (01/11/2025 11:13 PM CHANGE MANAGEMENT ANALYST) WBC 4.6 3.8 - 9.9 K/cumm Hgb 8.1(L) 11.9 - 15.5 g/dL [facility] Hct 26.6(L) 35.6 - 45.5 % [facility] Plt 125(L) 150 - 400 K/cumm [facility] MPV 9.7 9.1 - 12.3 fL [facility] RBC 2.73(L) 3.90 - 5.20 M/cumm [facility] MCV 97.4(H) 81.3 - 96.4 fL [facility] MCH 29.7 27.1 - 33.3 pg [facility] MCHC 30.5(L) 32.3 - 35.7 g/dL [facility] RDW CV 17.1(H) 11.1 - 14.9 % [facility] RDW SD 60.0(H) 35.7 - 48.1 fL [facility] NRBC abs 0.02(H) 0.00 - 0.01 K/cumm [facility] Blood 01/11/2025 11:1 3 PM CHANGE MANAGEMENT ANALYST 01/12/2025 12:06 AM CHANGE MANAGEMENT ANALYST us Bunny Islas MD PhD LAB BLOOD ORDERABLES Final Result Performing Organization Address City/[facility]/ZIP Co de Phone Number [facility] [place] [address] * Vitamin D 25 hydroxy (01/11/2025 11:13 PM CHANGE MANAGEMENT ANALYST) [facility] Vitamin D 25-OH 36 30 - 80 ng/mL Blood 01/11/2025 11:1 3 PM CHANGE MANAGEMENT ANALYST 01/12/2025 12:06 AM CHANGE MANAGEMENT ANALYST Linda Harden MD LAB BLOOD ORDERAB[place] [address] * Phosphorus (01/11/2025 11:13 PM CHANGE MANAGEMENT ANALYST) [facility] Phosphorus, pl 4.2 2.3 - 4.5 mg/dL Blood 01/11/2025 11:1 3 PM CHANGE MANAGEMENT ANALYST 01/12/2025 12:06 AM CHANGE MANAGEMENT ANALYST Bunny Islas MD PhD LAB BLOOD ORDERABLES Final Result Performing Organization Address City/[facility] [place] [address] * Magnesium (01/11/2025 11:13 PM CHANGE MANAGEMENT ANALYST) [facility] Magnesium 2.0 1.4 - 2.5 mg/dL Blood 01/11/2025 11:1 3 PM CHANGE MANAGEMENT ANALYST 01/12/2025 12:06 AM CHANGE MANAGEMENT ANALYST Bunny Islas MD PhD LAB BLOOD ORDERABLES Final Result Performing Organization Address City/[facility] [place] [place] [address] * Hemoglobin A1c (01/11/2025 11:13 PM CHANGE MANAGEMENT ANALYST) [facility] Hgb A1C 5.2 4.0 - 5.6 % Estimated Average Glucose 103 mg/dL [facility] Comment: The ADA recommends reporting an estimated Average Glucose (eAG) with all Hemoglobin A1c results using the equation derived from a study of 507 normal and diabetic adults. Minority populations were underrepresented and children were not included. (Diabetes Care 2020; 43(S1): S66-S76). The eAG is not equivalent to a fasting glucose. Blood 01/11/2025 11:1 3 PM CHANGE MANAGEMENT ANALYST 01/12/2025 12:06 AM CHANGE MANAGEMENT ANALYST us Linda Harden MD LAB BLOOD ORDERABLES F inal Result [facility] [place] [address] * (ABNORMAL) Comprehensive metabolic panel (01/11/2025 11:13 PM CHANGE MANAGEMENT ANALYST) Sodium 142 135 - 145 mmol/L Potassium, pl 4.5 3.3 - 4.9 mmol/L [facility] Chloride 104 97 - 110 mmol/L [facility] CO2 25 22 - 32 mmol/L [facility] Anion gap 13 2 - 15 mmol/L [facility] BUN 83(H) 6 - 25 mg/dL [facility] Creatinine 2.69(H) 0.60 - 1.10 mg/dL [facility] Glucose 133 70 - 199 mg/dL [facility] Comment: Interpretive Data Fasting glucose >/= 126 mg/dl is diagnostic for diabetes. Fasting is defined as no caloric intake for at least 8 hours. Fasting glucose between 100 mg/dl to 125 mg/dl is diagnostic of prediabetes. In a patient with classic symptoms of hyperglycemia or hyperglycemic crisis, a random glucose >/= 200 mg/dl is diagnostic for diabetes. In the absence of unequivocal hyperglycemia, results should be confirmed by repeat testing. The classification and Diagnosis of Diabetes Diabetes Care 202; 46: S19-S40. Current interpretive data was last revised 2022. Calcium 6.8(L) 8.5 - 10.3 mg/dL [facility] Bilirubin, total 0.4 0.1 - 1.2 mg/dL [facility] Protein, pl 6.2(L) 6.5 - 8.5 g/dL [facility] Albumin 3.1(L) 3.5 - 5.0 g/dL [facility] Alk phos 53 40 - 130 Units/L [facility] ALT 13 7 - 45 Units/L [facility] AST 24 10 - 45 Units/L [facility] Blood 01/11/2025 11:1 3 PM CHANGE MANAGEMENT ANALYST 01/12/2025 12:06 AM CHANGE MANAGEMENT ANALYST us Bunny Islas MD PhD LAB BLOOD ORDERABLES Final Result Performing Organization Address City/[facility]/ZIP Co de Phone Number [facility] [place] [address] * ECG 12 lead (01/11/2025 10:54 PM CHANGE MANAGEMENT ANALYST) Pathologist [facility] Ventricular Rate EKG/Min 63 BPM [facility] Atrial Rate 63 BPM [facility] MS-Interval (MSEC) 162 ms [facility] QRS-Interval (MSEC) 116 ms [facility] QT-Interval (MSEC) 434 ms [facility] QTc 444 ms [facility] P Verbena 71 degrees [facility] R Verbena -50 degrees [facility] T Verbena 43 degrees [facility] Diagnosis Normal sinus rhythm Left anterior fascicular block Minimal voltage criteria for LVH, may be normal variant ( [place] product ) Slow R wave progression-- may be secondary to left axis deviation but consider lead placement, anterior infarction, copd, etc. Abnormal ECG When compared with ECG of 26-DEC-2024 12:13, ST elevation now present in Anterior leads Confirmed by HALLEY HARRIS M.D ([id number]) on 01/20/2025 9:54:47 AM [facility] 01/11/2025 10:5 4 PM CHANGE MANAGEMENT ANALYST 01/20/2025 9:54 AM CDT us Bunny Islas MD PhD ECG ORDERABLES Мария l Result Performing Organization Address City/[facility]/ZIP Co de Phone Number [facility] * (ABNORMAL) eGFR (01/11/2025 8:17 AM CHANGE MANAGEMENT ANALYST) Pathologist [facility] eGFR 21(L) >=60 mL/min/1. 73 m2 Comment: Interpretive Data Reference Interval Normal >/= 90 mL/min/1.73m2 Mildly decreased* 60 - 89 mL/min/1.73m2 Mildly to moderately decreased 45 - 59 mL/min/1.73m2 Moderately to severely decreased 30 - 44 mL/min/1.73m2 Severely decreased 15 - 29 mL/min/1.73m2 Kidney Failure < 15 mL/min/1.73m2 *Relative to young adult level Estimated glomerular filtration rate is determined by the 2020 CKD-EPI equation recommended by the National Kidney Foundation (A Unifying Approach to GFR Estimation: Recommendations of the NKF-ASK Task Force on Reassessing the Inclusion of Race in Diagnosing Kidney Disease, JASN 2020). The CKD-EPI equation should not be used for patients with unstable renal function and has not been validated in children and those over 70. Current interpretive data was last reviewed 2021. Testing performed by: [address] [id number] Blood 01/11/2025 8:17 AM CHANGE MANAGEMENT ANALYST 01/11/2025 8:45 AM CHANGE MANAGEMENT ANALYST us Rica Khan MEDIA ANALYST LAB BLOOD ORDERABLES Final Res ult [facility] [address] [facility] [place] [address] * (ABNORMAL) Reticulocyte Count (01/11/2025 8:17 AM CHANGE MANAGEMENT ANALYST) Pathologist [facility] [employer], absolute 0.101(H) 0.020 - 0.087 M/cumm Comment:Testing performed by : [address] [id number] Retics 3.6(H) 0.4 - 2.9 % ABEBE LOYA Comment:Testing performed by : [address] [address] Reticulocyte Hgb 34.8 30.5 - 38.0 pg ABEBE LOYA Comment:Testing performed by : [address] [address] Blood 01/11/2025 8:17 AM CHANGE MANAGEMENT ANALYST 01/11/2025 8:46 AM CHANGE MANAGEMENT ANALYST us Joseph Dowd MD LAB BLOOD ORDERABLES F inal Result [facility] [address] [facility] [place] [address] * (ABNORMAL) CBC without differential (01/11/2025 8:17 AM CHANGE MANAGEMENT ANALYST) WBC 4.0 3.8 - 9.9 K/cumm Comment:Testing performed by : [address] [address] Hgb 8.3(L) 11.9 - 15.5 g/dL ABEBE Comment:Testing performed by : [address], [address] Hct 27.7(L) 35.6 - 45.5 % ABEBE Comment:Testing performed by : [address] [address] Plt 135(L) 150 - 400 K/cumm ABEBE Comment:Testing performed by : [address] [address] MPV 9.6 9.1 - 12.3 fL ABEBE Comment:Testing performed by : [address] [address] RBC 2.82(L) 3.90 - 5.20 M/cumm ABEBE Comment:Testing performed by : [address] [address] MCV 98.2(H) 81.3 - 96.4 fL ABEBE Comment:Testing performed by : [address] [address] MCH 29.4 27.1 - 33.3 pg ABEBE Comment:Testing performed by : [address], [address] MCHC 30.0(L) 32.3 - 35.7 g/dL BAEBE LOYA Comment:Testing performed by : [address] [address] RDW CV 16.6(H) 11.1 - 14.9 % ABEBE LOYA Comment:Testing performed by : [address] [address] RDW SD 59.1(H) 35.7 - 48.1 fL ABEBE LOYA Comment:Testing performed by : [address] [address] NRBC abs 0.02(H) 0.00 - 0.01 K/cumm ABEBE LOYA Comment:Testing performed by : [address] [address] Blood 01/11/2025 8:17 AM CHANGE MANAGEMENT ANALYST 01/11/2025 8:46 AM CHANGE MANAGEMENT ANALYST us Joseph Dowd MD LAB BLOOD ORDERABLES F inal Result ABEBE [address] [place] [address] * (ABNORMAL) Comprehensive metabolic panel (01/11/2025 8:17 AM CHANGE MANAGEMENT ANALYST) Sodium 139 135 - 145 mmol/L Comment:Testing performed by : [address] [address] Potassium, pl 4.1 3.3 - 4.9 mmol/L ABEBE LOYA Comment:Testing performed by : [address] [address] Chloride 103 97 - 110 mmol/L ABEBE LOYA Comment:Testing performed by : [address] [address] CO2 23 22 - 32 mmol/L ABEBE LOYA Comment:Testing performed by : [address] [address] Anion gap 13 2 - 15 mmol/L ABEBE LOYA Comment:Testing performed by : [address] [address] BUN 85(H) 6 - 25 mg/dL ABEBE LOYA Comment:Testing performed by : [address] [address] Creatinine 2.39(H) 0.60 - 1.10 mg/dL ABEBE Comment:Testing performed by : [address] [address] Glucose 69(L) 70 - 199 mg/dL ABEBE Comment: Interpretive Data Fasting glucose >/= 126 mg/dl is diagnostic for diabetes. Fasting is defined as no caloric intake for at least 8 hours. Fasting glucose between 100 mg/dl to 125 mg/dl is diagnostic of prediabetes. In a patient with classic symptoms of hyperglycemia or hyperglycemic crisis, a random glucose >/= 200 mg/dl is diagnostic for diabetes. In the absence of unequivocal hyperglycemia, results should be confirmed by repeat testing. The classification and Diagnosis of Diabetes Diabetes Care 202; 46: S19-S40. Current interpretive data was last revised 2022. Testing performed by: [address] [address] Calcium 7.2(L) 8.5 - 10.3 mg/dL ABEBE Comment:Testing performed by : [address] [address] Bilirubin, total 0.4 0.1 - 1.2 mg/dL ABEBE Comment:Testing performed by : [address] [address] Protein, pl 6.1(L) 6.5 - 8.5 g/dL ABEBE Comment:Testing performed by : [address] [address] Albumin 3.1(L) 3.5 - 5.0 g/dL ABEBE Comment:Testing performed by : [address] [address] Alk phos 41 40 - 130 Units/L ABEBE Comment:Testing performed by : [address] [address] ALT 12 7 - 45 Units/L ABEBE Comment:Testing performed by : [address] [address] AST 22 10 - 45 Units/L ABEBE Comment:Testing performed by : [facility], [address] [place] [address]., [address] Blood 01/11/2025 8:17 AM CHANGE MANAGEMENT ANALYST 01/11/2025 8:45 AM CHANGE MANAGEMENT ANALYST us Rica Khan MEDIA ANALYST LAB BLOOD ORDERABLES Final Res ult Performing Organization Address [facility] Co de Phone Number ABEBE [address] [place] [address] * (ABNORMAL) eGFR (01/10/2025 5:05 AM CHANGE MANAGEMENT ANALYST) eGFR 18(L) >=60 mL/min/1. 73 m2 Comment: Interpretive Data Reference Interval Normal >/= 90 mL/min/1.73m2 Mildly decreased* 60 - 89 mL/min/1.73m2 Mildly to moderately decreased 45 - 59 mL/min/1.73m2 Moderately to severely decreased 30 - 44 mL/min/1.73m2 Severely decreased 15 - 29 mL/min/1.73m2 Kidney Failure < 15 mL/min/1.73m2 *Relative to young adult level Estimated glomerular filtration rate is determined by the 2020 CKD-EPI equation recommended by the National Kidney Foundation (A Unifying Approach to GFR Estimation: Recommendations of the NKF-ASK Task Force on Reassessing the Inclusion of Race in Diagnosing Kidney Disease, JASN 2020). The CKD-EPI equation should not be used for patients with unstable renal function and has not been validated in children and those over 70. Current interpretive data was last reviewed 2021. Testing performed by: [facility], [address] [place] [address]., [address] Blood 01/10/2025 5:05 AM CHANGE MANAGEMENT ANALYST 01/10/2025 5:50 AM CHANGE MANAGEMENT ANALYST us Rica Khan MEDIA ANALYST LAB BLOOD ORDERABLES Final Res ult ABEBE [facility] [place] [address] * (ABNORMAL) CBC without differential (01/10/2025 5:05 AM CHANGE MANAGEMENT ANALYST) [facility] WBC 3.6(L) 3.8 - 9.9 K/cumm Comment:Testing performed by : [address], [address] Hgb 8.0(L) 11.9 - 15.5 g/dL ABEBE Comment:Testing performed by : [address], [address] Hct 25.9(L) 35.6 - 45.5 % ABEBE Comment:Testing performed by : [address] [address] Plt 114(L) 150 - 400 K/cumm ABEBE Comment:Testing performed by : [address], [address] MPV 9.2 9.1 - 12.3 fL ABEBE Comment:Testing performed by : [address], [address] RBC 2.65(L) 3.90 - 5.20 M/cumm ABEBE Comment:Testing performed by : [address] [address] MCV 97.7(H) 81.3 - 96.4 fL ABEBE Comment:Testing performed by : [address], [address] MCH 30.2 27.1 - 33.3 pg ABEBE Comment:Testing performed by : [address], [address] MCHC 30.9(L) 32.3 - 35.7 g/dL ABEBE Comment:Testing performed by : [address], [address] RDW CV 16.7(H) 11.1 - 14.9 % ABEBE Comment:Testing performed by : [address], [address] RDW SD 58.1(H) 35.7 - 48.1 fL ABEBE Comment:Testing performed by : [address], [address] NRBC abs 0.00 0.00 - 0.01 K/cumm ABEBE Comment:Testing performed by : [address] [address] Blood 01/10/2025 5:05 AM CHANGE MANAGEMENT ANALYST 01/10/2025 5:50 AM CHANGE MANAGEMENT ANALYST us Joseph Dowd MD LAB BLOOD ORDERABLES F inal Result [facility]BEBE [address] [facility] Department [place] [address] * (ABNORMAL) Comprehensive metabolic panel (01/10/2025 5:05 AM CHANGE MANAGEMENT ANALYST) Sodium 137 135 - 145 mmol/L Comment:Testing performed by : [address] [address] Potassium, pl 4.4 3.3 - 4.9 mmol/L ABEBE Comment:Testing performed by : [address] [address] Chloride 103 97 - 110 mmol/L ABEBE Comment:Testing performed by : [address] [address] CO2 24 22 - 32 mmol/L ABEBE Comment:Testing performed by : [address] [address] Anion gap 10 2 - 15 mmol/L ABEBE Comment:Testing performed by : [address] [address] BUN 88(H) 6 - 25 mg/dL ABEBE Comment:Testing performed by : [address] [address] Creatinine 2.70(H) 0.60 - 1.10 mg/dL ABEBE Comment:Testing performed by : [address] [address] Glucose 70 70 - 199 mg/dL ABEBE Comment: Interpretive Data Fasting glucose >/= 126 mg/dl is diagnostic for diabetes. Fasting is defined as no caloric intake for at least 8 hours. Fasting glucose between 100 mg/dl to 125 mg/dl is diagnostic of prediabetes. In a patient with classic symptoms of hyperglycemia or hyperglycemic crisis, a random glucose >/= 200 mg/dl is diagnostic for diabetes. In the absence of unequivocal hyperglycemia, results should be confirmed by repeat testing. The classification and Diagnosis of Diabetes Diabetes Care 202; 46: S19-S40. Current interpretive data was last revised 2022. Testing performed by: [address] [address] Calcium 6.9(L) 8.5 - 10.3 mg/dL ABEBE Comment:Testing performed by : [address] [address] Bilirubin, total 0.3 0.1 - 1.2 mg/dL ABEBE Comment:Testing performed by : [address] [address] Protein, pl 5.7(L) 6.5 - 8.5 g/dL ABEBE Comment:Testing performed by : [address] [address] Albumin 3.0(L) 3.5 - 5.0 g/dL [facility] Comment:Testing performed by : [address] [address] Alk phos 41 40 - 130 Units/L ABEBE Comment:Testing performed by : [address] [address] ALT 11 7 - 45 Units/L ABEBE Comment:Testing performed by : [address] [address] AST 22 10 - 45 Units/L [facility] Comment:Testing performed by : [address] [address] Blood 01/10/2025 5:05 AM CHANGE MANAGEMENT ANALYST 01/10/2025 5:50 AM CHANGE MANAGEMENT ANALYST us Rica Khan NP LAB BLOOD ORDERABLES Final Res ult ABEBE [address] [facility] Department of Laboratories [place], [place] [id number] * (ABNORMAL) eGFR (01/09/2025 5:17 AM CHANGE MANAGEMENT ANALYST) eGFR 18(L) >=60 mL/min/1. 73 m2 Comment: Interpretive Data Reference Interval Normal >/= 90 mL/min/1.73m2 Mildly decreased* 60 - 89 mL/min/1.73m2 Mildly to moderately decreased 45 - 59 mL/min/1.73m2 Moderately to severely decreased 30 - 44 mL/min/1.73m2 Severely decreased 15 - 29 mL/min/1.73m2 Kidney Failure < 15 mL/min/1.73m2 *Relative to young adult level Estimated glomerular filtration rate is determined by the 2020 CKD-EPI equation recommended by the National Kidney Foundation (A Unifying Approach to GFR Estimation: Recommendations of the NKF-ASK Task Force on Reassessing the Inclusion of Race in Diagnosing Kidney Disease, JASN 2020). The CKD-EPI equation should not be used for patients with unstable renal function and has not been validated in children and those over 70. Current interpretive data was last reviewed 2021. Testing performed by: [address] [address] Blood 01/09/2025 5:17 AM CHANGE MANAGEMENT ANALYST 01/09/2025 5:57 AM CHANGE MANAGEMENT ANALYST us Rica Khan MEDIA ANALYST LAB BLOOD ORDERABLES Final Res ult ABEBE [address] [facility] [place] [address] * (ABNORMAL) CBC without differential (01/09/2025 5:17 AM CHANGE MANAGEMENT ANALYST) Pathologist [facility] WBC 3.4(L) 3.8 - 9.9 K/cumm Comment:Testing performed by : [address] [address] Hgb 8.0(L) 11.9 - 15.5 g/dL ABEBE LOYA Comment:Testing performed by : [address] [address] Hct 26.1(L) 35.6 - 45.5 % ABEBE Comment:Testing performed by : [address] [place]., [address] Plt 121(L) 150 - 400 K/cumm ABEBE Comment:Testing performed by : [address] [address] MPV 9.3 9.1 - 12.3 fL ABEBE Comment:Testing performed by : [address], [address] RBC 2.72(L) 3.90 - 5.20 M/cumm ABEBE Comment:Testing performed by : [address], [address] MCV 96.0 81.3 - 96.4 fL ABEBE Comment:Testing performed by : [address], [address] MCH 29.4 27.1 - 33.3 pg ABEBE Comment:Testing performed by : [address], [address] MCHC 30.7(L) 32.3 - 35.7 g/dL ABEBE Comment:Testing performed by : [address], [address] RDW CV 16.3(H) 11.1 - 14.9 % ABEBE Comment:Testing performed by : [address] [address] RDW SD 55.8(H) 35.7 - 48.1 fL ABEBE Comment:Testing performed by : [address], [address] NRBC abs 0.02(H) 0.00 - 0.01 K/cumm ABEBE Comment:Testing performed by : [address], [address] Blood 01/09/2025 5:17 AM CHANGE MANAGEMENT ANALYST 01/09/2025 5:58 AM CHANGE MANAGEMENT ANALYST us Joseph Dowd MD LAB BLOOD ORDERABLES F inal Result [facility]BEBE [address] [facility] [place] [address] * (ABNORMAL) Comprehensive metabolic panel (01/09/2025 5:17 AM CHANGE MANAGEMENT ANALYST) Sodium 136 135 - 145 mmol/L Comment:Testing performed by : [address] [address] Potassium, pl 4.5 3.3 - 4.9 mmol/L ABEBE Comment:Testing performed by : [address] [address] Chloride 102 97 - 110 mmol/L ABEBE Comment:Testing performed by : [address], [place]., [address] CO2 22 22 - 32 mmol/L ABEBE Comment:Testing performed by : [address] [address] Anion gap 12 2 - 15 mmol/L ABEBE Comment:Testing performed by : [address] [address] BUN 88(H) 6 - 25 mg/dL ABEBE Comment:Testing performed by : [address] [address] Creatinine 2.70(H) 0.60 - 1.10 mg/dL ABEBE Comment:Testing performed by : [address] [address] Glucose 71 70 - 199 mg/dL ABEBE Comment: Interpretive Data Fasting glucose >/= 126 mg/dl is diagnostic for diabetes. Fasting is defined as no caloric intake for at least 8 hours. Fasting glucose between 100 mg/dl to 125 mg/dl is diagnostic of prediabetes. In a patient with classic symptoms of hyperglycemia or hyperglycemic crisis, a random glucose >/= 200 mg/dl is diagnostic for diabetes. In the absence of unequivocal hyperglycemia, results should be confirmed by repeat testing. The classification and Diagnosis of Diabetes Diabetes Care 202; 46: S19-S40. Current interpretive data was last revised 2022. Testing performed by: [address] [address] Calcium 6.9(L) 8.5 - 10.3 mg/dL ABEBE Comment:Testing performed by : [address] [place]., [address] Bilirubin, total 0.3 0.1 - 1.2 mg/dL ABEBE Comment:Testing performed by : [address] [address] Protein, pl 5.7(L) 6.5 - 8.5 g/dL ABEBE Comment:Testing performed by : [address] [address] Albumin 2.9(L) 3.5 - 5.0 g/dL ABEBE Comment:Testing performed by : [address] [address] Alk phos 38(L) 40 - 130 Units/L ABEBE Comment:Testing performed by : [address], [address] ALT 10 7 - 45 Units/L ABEBE Comment:Testing performed by : [address], [address] AST 20 10 - 45 Units/L ABEBE Comment:Testing performed by : [address] [address] Blood 01/09/2025 5:17 AM CHANGE MANAGEMENT ANALYST 01/09/2025 5:57 AM CHANGE MANAGEMENT ANALYST us Rica Khan MEDIA ANALYST LAB BLOOD ORDERABLES Final Res ult [facility] [address] [facility] Department of Laboratories [place], [place] [id number] * (ABNORMAL) eGFR (01/08/2025 5:25 AM CHANGE MANAGEMENT ANALYST) eGFR 16(L) >=60 mL/min/1. 73 m2 Comment: Interpretive Data Reference Interval Normal >/= 90 mL/min/1.73m2 Mildly decreased* 60 - 89 mL/min/1.73m2 Mildly to moderately decreased 45 - 59 mL/min/1.73m2 Moderately to severely decreased 30 - 44 mL/min/1.73m2 Severely decreased 15 - 29 mL/min/1.73m2 Kidney Failure < 15 mL/min/1.73m2 *Relative to young adult level Estimated glomerular filtration rate is determined by the 2020 CKD-EPI equation recommended by the National Kidney Foundation (A Unifying Approach to GFR Estimation: Recommendations of the NKF-ASK Task Force on Reassessing the Inclusion of Race in Diagnosing Kidney Disease, JASN 2020). The CKD-EPI equation should not be used for patients with unstable renal function and has not been validated in children and those over 70. Current interpretive data was last reviewed 2021. Testing performed by: [address] [address] Blood 01/08/2025 5:25 AM CHANGE MANAGEMENT ANALYST 01/08/2025 6:10 AM CHANGE MANAGEMENT ANALYST us Rica Khan MEDIA ANALYST LAB BLOOD ORDERABLES Final Res ult ABEBE [address] [facility] Department of Laboratories [place], [place] [id number] * (ABNORMAL) CBC without differential (01/08/2025 5:25 AM CHANGE MANAGEMENT ANALYST) WBC 3.4(L) 3.8 - 9.9 K/cumm Comment:Testing performed by : [address] [address] Hgb 7.8(L) 11.9 - 15.5 g/dL ABEBE LOYA Comment:Testing performed by : [address] [address] Hct 25.3(L) 35.6 - 45.5 % ABEBE Comment:Testing performed by : [address] [address] Plt 109(L) 150 - 400 K/cumm ABEBE Comment:Testing performed by : [address] [address] MPV 9.0(L) 9.1 - 12.3 fL ABEBE LOYA Comment:Testing performed by : [address] [address] RBC 2.65(L) 3.90 - 5.20 M/cumm ABEBE LOYA Comment:Testing performed by : [address] [address] MCV 95.5 81.3 - 96.4 fL ABEBE LOYA Comment:Testing performed by : [address] [address] MCH 29.4 27.1 - 33.3 pg ABEBE LOYA Comment:Testing performed by : [address] [address] MCHC 30.8(L) 32.3 - 35.7 g/dL ABEBE LOYA Comment:Testing performed by : [address] [address] RDW CV 16.1(H) 11.1 - 14.9 % ABEBE LOYA Comment:Testing performed by : [address] [address] RDW SD 55.7(H) 35.7 - 48.1 fL ABEBE LOYA Comment:Testing performed by : [address] [address] NRBC abs 0.00 0.00 - 0.01 K/cumm ABEBE LOYA Comment:Testing performed by : [address], [address] Blood 01/08/2025 5:25 AM CHANGE MANAGEMENT ANALYST 01/08/2025 6:11 AM CHANGE MANAGEMENT ANALYST us Joseph Dowd MD LAB BLOOD ORDERABLES F inal Result [facility] [address] [facility] Department of Laboratories [place], [place] [id number] * (ABNORMAL) Comprehensive metabolic panel (01/08/2025 5:25 AM CHANGE MANAGEMENT ANALYST) Sodium 135 135 - 145 mmol/L Comment:Testing performed by : [address] [address] Potassium, pl 4.6 3.3 - 4.9 mmol/L ABEBE LOYA Comment:Testing performed by : [address], [address] Chloride 101 97 - 110 mmol/L ABEBE LOYA Comment:Testing performed by : [address] [address] CO2 23 22 - 32 mmol/L ABEBE Comment:Testing performed by : [address] [address] Anion gap 11 2 - 15 mmol/L ABEBE Comment:Testing performed by : [address] [address] BUN 91(H) 6 - 25 mg/dL ABEBE Comment:Testing performed by : [address] [address] Creatinine 2.90(H) 0.60 - 1.10 mg/dL ABEBE Comment:Testing performed by : [address] [address] Glucose 70 70 - 199 mg/dL ABEBE Comment: Interpretive Data Fasting glucose >/= 126 mg/dl is diagnostic for diabetes. Fasting is defined as no caloric intake for at least 8 hours. Fasting glucose between 100 mg/dl to 125 mg/dl is diagnostic of prediabetes. In a patient with classic symptoms of hyperglycemia or hyperglycemic crisis, a random glucose >/= 200 mg/dl is diagnostic for diabetes. In the absence of unequivocal hyperglycemia, results should be confirmed by repeat testing. The classification and Diagnosis of Diabetes Diabetes Care 202; 46: S19-S40. Current interpretive data was last revised 2022. Testing performed by: [address] [address] Calcium 6.8(L) 8.5 - 10.3 mg/dL ABEBE Comment:Testing performed by : [address] [address] Bilirubin, total 0.3 0.1 - 1.2 mg/dL ABEBE Comment:Testing performed by : [address] [address] Protein, pl 5.6(L) 6.5 - 8.5 g/dL ABEBE Comment:Testing performed by : [address] [address] Albumin 3.0(L) 3.5 - 5.0 g/dL ABEBE Comment:Testing performed by : [address] [address] Alk phos 41 40 - 130 Units/L ABEBE Comment:Testing performed by : [address] [address] ALT 10 7 - 45 Units/L ABEBE Comment:Testing performed by : [address] [address] AST 18 10 - 45 Units/L ABEBE Comment:Testing performed by : [address], [address] Blood 01/08/2025 5:25 AM CHANGE MANAGEMENT ANALYST 01/08/2025 6:10 AM CHANGE MANAGEMENT ANALYST us Rica Khan MEDIA ANALYST LAB BLOOD ORDERABLES Final Res ult [facility] [address] [facility] [place] [address] * (ABNORMAL) eGFR (01/07/2025 5:16 AM CHANGE MANAGEMENT ANALYST) eGFR 16(L) >=60 mL/min/1. 73 m2 Comment: Interpretive Data Reference Interval Normal >/= 90 mL/min/1.73m2 Mildly decreased* 60 - 89 mL/min/1.73m2 Mildly to moderately decreased 45 - 59 mL/min/1.73m2 Moderately to severely decreased 30 - 44 mL/min/1.73m2 Severely decreased 15 - 29 mL/min/1.73m2 Kidney Failure < 15 mL/min/1.73m2 *Relative to young adult level Estimated glomerular filtration rate is determined by the 2020 CKD-EPI equation recommended by the National Kidney Foundation (A Unifying Approach to GFR Estimation: Recommendations of the NKF-ASK Task Force on Reassessing the Inclusion of Race in Diagnosing Kidney Disease, JASN 202). The CKD-EPI equation should not be used for patients with unstable renal function and has not been validated in children and those over 70. Current interpretive data was last reviewed 2021. Testing performed by: [address], [address] Blood 01/07/2025 5:16 AM CHANGE MANAGEMENT ANALYST 01/07/2025 6:12 AM CHANGE MANAGEMENT ANALYST us Rica Khan MEDIA ANALYST LAB BLOOD ORDERABLES Final Res ult [facility] [address] [facility] [place] [address] * (ABNORMAL) CBC without differential (01/07/2025 5:16 AM CHANGE MANAGEMENT ANALYST) WBC 3.8 3.8 - 9.9 K/cumm Comment:Testing performed by : [address] [address] Hgb 8.6(L) 11.9 - 15.5 g/dL ABEBE Comment:Testing performed by : [address] [address] Hct 27.4(L) 35.6 - 45.5 % ABEBE Comment:Testing performed by : [address] [address] Plt 114(L) 150 - 400 K/cumm ABEBE Comment:Testing performed by : [address] [address] MPV 9.1 9.1 - 12.3 fL ABEBE Comment:Testing performed by : [address] [address] RBC 2.88(L) 3.90 - 5.20 M/cumm ABEBE Comment:Testing performed by : [address] [address] MCV 95.1 81.3 - 96.4 fL ABEBE Comment:Testing performed by : [address] [address] MCH 29.9 27.1 - 33.3 pg ABEBE LOYA Comment:Testing performed by : [address] [address] MCHC 31.4(L) 32.3 - 35.7 g/dL ABEBE Comment:Testing performed by : [address] [address] RDW CV 15.9(H) 11.1 - 14.9 % ABEBE Comment:Testing performed by : [address] [address] RDW SD 54.7(H) 35.7 - 48.1 fL ABEBE LOYA Comment:Testing performed by : [address] [address] NRBC abs 0.00 0.00 - 0.01 K/cumm ABEBE Comment:Testing performed by : [address], [place]., [address] Blood 01/07/2025 5:16 AM CHANGE MANAGEMENT ANALYST 01/07/2025 6:12 AM CHANGE MANAGEMENT ANALYST us Joseph Dowd MD LAB BLOOD ORDERABLES F inal Result [facility] [place] [address] * (ABNORMAL) Comprehensive metabolic panel (01/07/2025 5:16 AM CHANGE MANAGEMENT ANALYST) Sodium 134(L) 135 - 145 mmol/L Comment:Testing performed by : [address] [address] Potassium, pl 4.5 3.3 - 4.9 mmol/L ABEBE Comment:Testing performed by : [address] [address] Chloride 100 97 - 110 mmol/L ABEBE Comment:Testing performed by : [address] [address] CO2 22 22 - 32 mmol/L ABEBE Comment:Testing performed by : [address] [address] Anion gap 12 2 - 15 mmol/L ABEBE Comment:Testing performed by : [address] [address] BUN 92(H) 6 - 25 mg/dL ABEBE Comment:Testing performed by : [address] [address] Creatinine 2.90(H) 0.60 - 1.10 mg/dL ABEBE Comment:Testing performed by : [address] [address] Glucose 73 70 - 199 mg/dL ABEBE Comment: Interpretive Data Fasting glucose >/= 126 mg/dl is diagnostic for diabetes. Fasting is defined as no caloric intake for at least 8 hours. Fasting glucose between 100 mg/dl to 125 mg/dl is diagnostic of prediabetes. In a patient with classic symptoms of hyperglycemia or hyperglycemic crisis, a random glucose >/= 200 mg/dl is diagnostic for diabetes. In the absence of unequivocal hyperglycemia, results should be confirmed by repeat testing. The classification and Diagnosis of Diabetes Diabetes Care 202; 46: S19-S40. Current interpretive data was last revised 2022. Testing performed by: [address] [address] Calcium 7.0(L) 8.5 - 10.3 mg/dL ABEBE Comment:Testing performed by : [address] [address] Bilirubin, total 0.3 0.1 - 1.2 mg/dL [facility] Comment:Testing performed by : [address] [address] Protein, pl 6.0(L) 6.5 - 8.5 g/dL [facility] Comment:Testing performed by : [address] [address] Albumin 3.1(L) 3.5 - 5.0 g/dL [facility] Comment:Testing performed by : [address] [address] Alk phos 45 40 - 130 Units/L [facility] Comment:Testing performed by : [address] [address] ALT 12 7 - 45 Units/L ABEBE Comment:Testing performed by : [address] [address] AST 21 10 - 45 Units/L A[facility]BE Comment:Testing performed by : [address] [address] Blood 01/07/2025 5:16 AM CHANGE MANAGEMENT ANALYST 01/07/2025 6:12 AM CHANGE MANAGEMENT ANALYST Rica Khan MEDIA ANALYST LAB BLOOD ORDERABLES Final Res ult Performing Organization Address [facility] Co de Phone Number [id number] [address] * (ABNORMAL) Hemoglobin and hematocrit (01/06/2025 9:07 PM CHANGE MANAGEMENT ANALYST) Hgb 8.7(L) 11.9 - 15.5 g/dL Comment:Testing performed by : [address] [address] Hct 28.0(L) 35.6 - 45.5 % [facility] Comment:Testing performed by : [address] [address] Blood 01/06/2025 9:07 PM CHANGE MANAGEMENT ANALYST 01/06/2025 9:15 PM CHANGE MANAGEMENT ANALYST Joseph Dowd MD LAB BLOOD ORDERABLES F inal Result Performing Organization Address [facility] de Phone Number [address] [address] * (ABNORMAL) aPTT (01/06/2025 9:07 PM CHANGE MANAGEMENT ANALYST) aPTT 41(H) 22 - 37 sec Comment: Ref Range High Interpretive data aPTT test has not been evaluated for monitoring heparin therapy. The anti-Xa is the preferred test. Current interpretive data was last revised on 2019. Testing performed by: [address] [address] Blood 01/06/2025 9:07 PM CHANGE MANAGEMENT ANALYST 01/06/2025 9:15 PM CHANGE MANAGEMENT ANALYST Joseph Dowd MD LAB BLOOD ORDERABLES F inal Result Performing Organization Address [facility] Co de Phone Number NINANER MH [address] [facility] [place] [address] * Protime-INR (01/06/2025 9:07 PM CHANGE MANAGEMENT ANALYST) PT 14.0 12.0 - 14.6 sec Comment:Testing performed by : [address] [address] INR 1.1 0.9 - 1.2 [facility] Comment: Ref Range High Interpretive data Oral anticoagulant therapeutic ranges: Venous thromboembolism prophylaxis or treatment: 2.0-3.0 CARDIOLOGY Standard range: 2.0-3.0 High-intensity range: 2.5-3.5 Refer to indication-specific guidelines for appropriate target ranges for prosthetic heart valve replacement. Current interpretive data was last revised on 2019. Testing performed by: [address] [address] Blood 01/06/2025 9:07 PM CHANGE MANAGEMENT ANALYST 01/06/2025 9:15 PM CHANGE MANAGEMENT ANALYST us Joseph Dowd MD LAB BLOOD ORDERABLES F inal Result [facility] [address] [place] [address] * (ABNORMAL) eGFR (01/06/2025 8:12 AM CHANGE MANAGEMENT ANALYST) Pathologist [facility] eGFR 15(L) >=60 mL/min/1. 73 m2 Comment: Interpretive Data Reference Interval Normal >/= 90 mL/min/1.73m2 Mildly decreased* 60 - 89 mL/min/1.73m2 Mildly to moderately decreased 45 - 59 mL/min/1.73m2 Moderately to severely decreased 30 - 44 mL/min/1.73m2 Severely decreased 15 - 29 mL/min/1.73m2 Kidney Failure < 15 mL/min/1.73m2 *Relative to young adult level Estimated glomerular filtration rate is determined by the 2020 CKD-EPI equation recommended by the National Kidney Foundation (A Unifying Approach to GFR Estimation: Recommendations of the NKF-ASK Task Force on Reassessing the Inclusion of Race in Diagnosing Kidney Disease, JASN 2020). The CKD-EPI equation should not be used for patients with unstable renal function and has not been validated in children and those over 70. Current interpretive data was last reviewed 2021. Testing performed by: [address] [address] Blood 01/06/2025 8:12 AM CHANGE MANAGEMENT ANALYST 01/06/2025 10:20 AM CHANGE MANAGEMENT ANALYST us Rica Khan MEDIA ANALYST LAB BLOOD ORDERABLES Final Res ult [facility] [address] [facility] [place] [address] * (ABNORMAL) CBC without differential (01/06/2025 8:12 AM CHANGE MANAGEMENT ANALYST) WBC 4.1 3.8 - 9.9 K/cumm Comment:Testing performed by : [address] [address] Hgb 8.3(L) 11.9 - 15.5 g/dL [facility] Comment:Testing performed by : [address] [address] Hct 26.6(L) 35.6 - 45.5 % [facility] Comment:Testing performed by : [address] [address] Plt 116(L) 150 - 400 K/cumm [facility] Comment:Testing performed by : [address] [address] MPV 10.3 9.1 - 12.3 fL [facility] Comment:Testing performed by : [address] [address] RBC 2.82(L) 3.90 - 5.20 M/cumm [facility] Comment:Testing performed by : [address] [address] MCV 94.3 81.3 - 96.4 fL [facility] Comment:Testing performed by : [address] [address] MCH 29.4 27.1 - 33.3 pg [facility] LOYA Comment:Testing performed by : [address] [address] MCHC 31.2(L) 32.3 - 35.7 g/dL [facility] LOYA Comment:Testing performed by : [address] [address] RDW CV 15.8(H) 11.1 - 14.9 % [facility] LOYA Comment:Testing performed by : [address] [address] RDW SD 54.0(H) 35.7 - 48.1 fL [facility] LOYA Comment:Testing performed by : [address] [address] NRBC abs 0.00 0.00 - 0.01 K/cumm [facility] LOYA Comment:Testing performed by : [address] [address] Blood 01/06/2025 8:12 AM CHANGE MANAGEMENT ANALYST 01/06/2025 10:20 AM CHANGE MANAGEMENT ANALYST us Joseph Dowd MD LAB BLOOD ORDERABLES F inal Result [facility] [address] [facility] Department of Laboratories [place] [id number] * (ABNORMAL) Comprehensive metabolic panel (01/06/2025 8:12 AM CHANGE MANAGEMENT ANALYST) Sodium 135 135 - 145 mmol/L Comment:Testing performed by : [address] [address] Potassium, pl 4.5 3.3 - 4.9 mmol/L [facility] LOYA Comment:Testing performed by : [address] [address] Chloride 100 97 - 110 mmol/L [facility] LOYA Comment:Testing performed by : [address] [address] CO2 21(L) 22 - 32 mmol/L [facility] LOYA Comment:Testing performed by : [address] [address] Anion gap 14 2 - 15 mmol/L [facility] Comment:Testing performed by : [address] [address] BUN 94(H) 6 - 25 mg/dL [facility] Comment:Testing performed by : [address] [address] Creatinine 3.20(H) 0.60 - 1.10 mg/dL [facility] Comment:Testing performed by : [address] [address] Glucose 69(L) 70 - 199 mg/dL [facility] Comment: Interpretive Data Fasting glucose >/= 126 mg/dl is diagnostic for diabetes. Fasting is defined as no caloric intake for at least 8 hours. Fasting glucose between 100 mg/dl to 125 mg/dl is diagnostic of prediabetes. In a patient with classic symptoms of hyperglycemia or hyperglycemic crisis, a random glucose >/= 200 mg/dl is diagnostic for diabetes. In the absence of unequivocal hyperglycemia, results should be confirmed by repeat testing. The classification and Diagnosis of Diabetes Diabetes Care 202; 46: S19-S40. Current interpretive data was last revised 2022. Testing performed by: [address] [address] Calcium 7.0(L) 8.5 - 10.3 mg/dL [facility] Comment:Testing performed by : [address] [address] Bilirubin, total 0.3 0.1 - 1.2 mg/dL [facility] Comment:Testing performed by : [address] [address] Protein, pl 5.9(L) 6.5 - 8.5 g/dL [facility] Comment:Testing performed by : [address] [address] Albumin 3.0(L) 3.5 - 5.0 g/dL [facility] Comment:Testing performed by : [address] [address] Alk phos 45 40 - 130 Units/L [facility] Comment:Testing performed by : [address] [address] ALT 12 7 - 45 Units/L [facility] Comment:Testing performed by : [address] [address] AST 22 10 - 45 Units/L [facility] Comment:Testing performed by : [facility], [address] [place] [address]., [address] Blood 01/06/2025 8:12 AM CHANGE MANAGEMENT ANALYST 01/06/2025 10:20 AM CHANGE MANAGEMENT ANALYST us Rica Khan MEDIA ANALYST LAB BLOOD ORDERABLES Final Res ult Performing Organization Address [facility] de Phone Number NINARITCHIE [address] [facility] Department [place] [address] * (ABNORMAL) eGFR (01/05/2025 7:35 AM CHANGE MANAGEMENT ANALYST) eGFR 15(L) >=60 mL/min/1. 73 m2 Comment: Interpretive Data Reference Interval Normal >/= 90 mL/min/1.73m2 Mildly decreased* 60 - 89 mL/min/1.73m2 Mildly to moderately decreased 45 - 59 mL/min/1.73m2 Moderately to severely decreased 30 - 44 mL/min/1.73m2 Severely decreased 15 - 29 mL/min/1.73m2 Kidney Failure < 15 mL/min/1.73m2 *Relative to young adult level Estimated glomerular filtration rate is determined by the 2020 CKD-EPI equation recommended by the National Kidney Foundation (A Unifying Approach to GFR Estimation: Recommendations of the NKF-ASK Task Force on Reassessing the Inclusion of Race in Diagnosing Kidney Disease, JASN 2020). The CKD-EPI equation should not be used for patients with unstable renal function and has not been validated in children and those over 70. Current interpretive data was last reviewed 2021. Testing performed by: [address] [address] Blood 01/05/2025 7:35 AM CHANGE MANAGEMENT ANALYST 01/05/2025 7:57 AM CHANGE MANAGEMENT ANALYST us Rica Khan MEDIA ANALYST LAB BLOOD ORDERABLES Final Res ult Performing Organization Address [facility] Co de Phone Number [facility] [address] [facility] Department [place] [address] * (ABNORMAL) Comprehensive metabolic panel (01/05/2025 7:35 AM CHANGE MANAGEMENT ANALYST) Sodium 132(L) 135 - 145 mmol/L Comment:Testing performed by : [address] [address] Potassium, pl 4.9 3.3 - 4.9 mmol/L [facility] Comment:Testing performed by : [address] [address] Chloride 99 97 - 110 mmol/L [facility] Comment:Testing performed by : [address] [address] CO2 20(L) 22 - 32 mmol/L [facility] Comment:Testing performed by : [address] [address] Anion gap 13 2 - 15 mmol/L [facility] Comment:Testing performed by : [address] [address] BUN 97(H) 6 - 25 mg/dL [facility] Comment:Testing performed by : [address] [address] Creatinine 3.10(H) 0.60 - 1.10 mg/dL [facility] Comment:Testing performed by : [address] [address] Glucose 72 70 - 199 mg/dL [facility] Comment: Interpretive Data Fasting glucose >/= 126 mg/dl is diagnostic for diabetes. Fasting is defined as no caloric intake for at least 8 hours. Fasting glucose between 100 mg/dl to 125 mg/dl is diagnostic of prediabetes. In a patient with classic symptoms of hyperglycemia or hyperglycemic crisis, a random glucose >/= 200 mg/dl is diagnostic for diabetes. In the absence of unequivocal hyperglycemia, results should be confirmed by repeat testing. The classification and Diagnosis of Diabetes Diabetes Care 202; 46: S19-S40. Current interpretive data was last revised 2022. Testing performed by: [address] [address] Calcium 6.7(L) 8.5 - 10.3 mg/dL [facility] Comment:Testing performed by : [address] [address] Bilirubin, total 0.2 0.1 - 1.2 mg/dL [facility] Comment:Testing performed by : [address] [address] Protein, pl 5.5(L) 6.5 - 8.5 g/dL [facility] Comment:Testing performed by : [address] [address] Albumin 2.9(L) 3.5 - 5.0 g/dL [facility] Comment:Testing performed by : [address] [address] Alk phos 44 40 - 130 Units/L [facility] Comment:Testing performed by : [address] [address] ALT 10 7 - 45 Units/L [facility] Comment:Testing performed by : [address] [address] AST 21 10 - 45 Units/L [facility] Comment:Testing performed by : [address] [address] Blood 01/05/2025 7:35 AM CHANGE MANAGEMENT ANALYST 01/05/2025 7:57 AM CHANGE MANAGEMENT ANALYST us Rica Khan MEDIA ANALYST LAB BLOOD ORDERABLES Final Res ult [facility] [address] [facility] Department of Laboratories [place], [place] [id number] * (ABNORMAL) eGFR (01/04/2025 7:31 AM CHANGE MANAGEMENT ANALYST) eGFR 16(L) >=60 mL/min/1. 73 m2 Comment: Interpretive Data Reference Interval Normal >/= 90 mL/min/1.73m2 Mildly decreased* 60 - 89 mL/min/1.73m2 Mildly to moderately decreased 45 - 59 mL/min/1.73m2 Moderately to severely decreased 30 - 44 mL/min/1.73m2 Severely decreased 15 - 29 mL/min/1.73m2 Kidney Failure < 15 mL/min/1.73m2 *Relative to young adult level Estimated glomerular filtration rate is determined by the 2020 CKD-EPI equation recommended by the National Kidney Foundation (A Unifying Approach to GFR Estimation: Recommendations of the NKF-ASK Task Force on Reassessing the Inclusion of Race in Diagnosing Kidney Disease, JASN 2020). The CKD-EPI equation should not be used for patients with unstable renal function and has not been validated in children and those over 70. Current interpretive data was last reviewed 2021. Testing performed by: [address] [address] Blood 01/04/2025 7:31 AM CHANGE MANAGEMENT ANALYST 01/04/2025 7:59 AM CHANGE MANAGEMENT ANALYST us Rica Khan MEDIA ANALYST LAB BLOOD ORDERABLES Final Res ult [facility] [address] [facility] [place] [address] * Differential, auto (01/04/2025 7:31 AM CHANGE MANAGEMENT ANALYST) Neutrophil abs 1.5 1.5 - 6.5 K/cumm Comment:Testing performed by : [address] [address] Imm gran abs 0.0 0.0 - 0.1 K/cumm [facility] Comment:Testing performed by : [address] [address] Lymphocyte abs 1.7 0.8 - 3.3 K/cumm [facility] Comment:Testing performed by : [address] [address] Monocyte abs 0.5 0.2 - 0.8 K/cumm [facility] Comment:Testing performed by : [address] [address] Eosinophil abs 0.1 0.0 - 0.5 K/cumm [facility] Comment:Testing performed by : [address] [address] Basophil abs 0.0 0.0 - 0.1 K/cumm [facility] Comment:Testing performed by : [address] [address] Neutrophil pct 38.5 % [facility] Comment: Interpretive Data Percent cell count reference ranges are not reported, since discordance with absolute values may lead to misinterpretation of CBC data. Current Interpretive Data was last revised on 2018. Testing performed by: [address] [address] Imm gran pct 0.5 % [facility] Comment: Interpretive Data Percent cell count reference ranges are not reported, since discordance with absolute values may lead to misinterpretation of CBC data. Current Interpretive Data was last revised on 2018. Testing performed by: [address] [address] Lymphocyte pct 45.5 % [facility] Comment: Interpretive Data Percent cell count reference ranges are not reported, since discordance with absolute values may lead to misinterpretation of CBC data. Current Interpretive Data was last revised on 2018. Testing performed by: [address] [address] Monocyte pct 11.8 % [facility] Comment: Interpretive Data Percent cell count reference ranges are not reported, since discordance with absolute values may lead to misinterpretation of CBC data. Current Interpretive Data was last revised on 2018. Testing performed by: [address] [address] Eosinophil pct 3.4 % [facility] Comment: Interpretive Data Percent cell count reference ranges are not reported, since discordance with absolute values may lead to misinterpretation of CBC data. Current Interpretive Data was last revised on 2018. Testing performed by: [address] [address] Basophil pct 0.3 % [facility] Comment: Interpretive Data Percent cell count reference ranges are not reported, since discordance with absolute values may lead to misinterpretation of CBC data. Current Interpretive Data was last revised on 2018. Testing performed by: [address] [address] Blood 01/04/2025 7:31 AM CHANGE MANAGEMENT ANALYST 01/04/2025 7:59 AM CHANGE MANAGEMENT ANALYST us Farooq Arceo MD LAB BLOOD ORDERABLES Final Result [facility] [address] [facility] [place] [address] * (ABNORMAL) CBC with auto differential (01/04/2025 7:31 AM CHANGE MANAGEMENT ANALYST) WBC 3.8 3.8 - 9.9 K/cumm Comment:Testing performed by : [address] [address] Hgb 8.1(L) 11.9 - 15.5 g/dL [facility] Comment:Testing performed by : [address] [address] Hct 25.7(L) 35.6 - 45.5 % [facility] Comment:Testing performed by : [address] [address] Plt 108(L) 150 - 400 K/cumm [facility] Comment:Testing performed by : [address] [address] MPV 9.8 9.1 - 12.3 fL [facility] Comment:Testing performed by : [address] [address] RBC 2.77(L) 3.90 - 5.20 M/cumm [facility] Comment:Testing performed by : [address] [address] MCV 92.8 81.3 - 96.4 fL [facility] Comment:Testing performed by : [address] [address] MCH 29.2 27.1 - 33.3 pg [facility] LOYA Comment:Testing performed by : [address] [address] MCHC 31.5(L) 32.3 - 35.7 g/dL [facility] Comment:Testing performed by : [address], [address] RDW CV 15.1(H) 11.1 - 14.9 % [facility] Comment:Testing performed by : [address] [address] RDW SD 51.4(H) 35.7 - 48.1 fL [facility] LOYA Comment:Testing performed by : [address] [address] NRBC abs 0.00 0.00 - 0.01 K/cumm [facility] Comment:Testing performed by : [address] [address] Blood 01/04/2025 7:3 1 AM CHANGE MANAGEMENT ANALYST 01/04/2025 7:59 AM CHANGE MANAGEMENT ANALYST us Farooq Arceo MD LAB BLOOD ORDERABLES Final Result [facility] [place] [address] * (ABNORMAL) Comprehensive metabolic panel (01/04/2025 7:31 AM CHANGE MANAGEMENT ANALYST) Sodium 131(L) 135 - 145 mmol/L Comment:Testing performed by : [address] [address] Potassium, pl 4.4 3.3 - 4.9 mmol/L [facility] Comment:Testing performed by : [address] [address] Chloride 98 97 - 110 mmol/L [facility] Comment:Testing performed by : [address] [address] CO2 20(L) 22 - 32 mmol/L [facility] Comment:Testing performed by : [address] [address] Anion gap 13 2 - 15 mmol/L [facility] Comment:Testing performed by : [address] [address] BUN 92(H) 6 - 25 mg/dL [facility] LOYA Comment:Testing performed by : [address] [address] Creatinine 2.90(H) 0.60 - 1.10 mg/dL [facility] Comment:Testing performed by : [address] [address] Glucose 61(L) 70 - 199 mg/dL [facility] Comment: Interpretive Data Fasting glucose >/= 126 mg/dl is diagnostic for diabetes. Fasting is defined as no caloric intake for at least 8 hours. Fasting glucose between 100 mg/dl to 125 mg/dl is diagnostic of prediabetes. In a patient with classic symptoms of hyperglycemia or hyperglycemic crisis, a random glucose >/= 200 mg/dl is diagnostic for diabetes. In the absence of unequivocal hyperglycemia, results should be confirmed by repeat testing. The classification and Diagnosis of Diabetes Diabetes Care 2021; 46: S19-S40. Current interpretive data was last revised 2022. Testing performed by: [address] [address] Calcium 6.8(L) 8.5 - 10.3 mg/dL [facility] Comment:Testing performed by : [address] [address] Bilirubin, total 0.2 0.1 - 1.2 mg/dL [facility] Comment:Testing performed by : [address] [address] Protein, pl 5.6(L) 6.5 - 8.5 g/dL [facility] Comment:Testing performed by : [address] [address] Albumin 2.8(L) 3.5 - 5.0 g/dL [facility] Comment:Testing performed by : [address] [address] Alk phos 41 40 - 130 Units/L [facility] Comment:Testing performed by : [address] [address] ALT 10 7 - 45 Units/L [facility] Comment:Testing performed by : [address] [address] AST 19 10 - 45 Units/L [facility] Comment:Testing performed by : [address] [address] Blood 01/04/2025 7:31 AM CHANGE MANAGEMENT ANALYST 01/04/2025 7:59 AM CHANGE MANAGEMENT ANALYST us Rica Khan MEDIA ANALYST LAB BLOOD ORDERABLES Final Res ult Performing Organization Address [facility] Co de Phone Number ABEBE [address] [address] * (ABNORMAL) eGFR (01/03/2025 4:59 AM CHANGE MANAGEMENT ANALYST) eGFR 17(L) >=60 mL/min/1. 73 m2 Comment: Interpretive Data Reference Interval Normal >/= 90 mL/min/1.73m2 Mildly decreased* 60 - 89 mL/min/1.73m2 Mildly to moderately decreased 45 - 59 mL/min/1.73m2 Moderately to severely decreased 30 - 44 mL/min/1.73m2 Severely decreased 15 - 29 mL/min/1.73m2 Kidney Failure < 15 mL/min/1.73m2 *Relative to young adult level Estimated glomerular filtration rate is determined by the 2020 CKD-EPI equation recommended by the National Kidney Foundation (A Unifying Approach to GFR Estimation: Recommendations of the NKF-ASK Task Force on Reassessing the Inclusion of Race in Diagnosing Kidney Disease, JASN 2020). The CKD-EPI equation should not be used for patients with unstable renal function and has not been validated in children and those over 70. Current interpretive data was last reviewed 2021. Testing performed by: [facility], [address] [place] [address]., [address] Blood 01/03/2025 4:59 AM CHANGE MANAGEMENT ANALYST 01/03/2025 5:51 AM CHANGE MANAGEMENT ANALYST us Rica Khan MEDIA ANALYST LAB BLOOD ORDERABLES Final Res ult Performing Organization Address [facility]/ZIP Co de Phone Number [place] [phone] [facility] [place] [address] * (ABNORMAL) Comprehensive metabolic panel (01/03/2025 4:59 AM CHANGE MANAGEMENT ANALYST) Sodium 129(L) 135 - 145 mmol/L Comment:Testing performed by : [facility], [address] [place] [address]., [address] Potassium, pl 4.5 3.3 - 4.9 mmol/L [facility] Comment:Testing performed by : [facility], [address] [place] [address], [place]., [address] Chloride 95(L) 97 - 110 mmol/L [facility] Comment:Testing performed by : [address], [place]., [address] CO2 22 22 - 32 mmol/L [facility] Comment:Testing performed by : [address], [place]., [address] Anion gap 12 2 - 15 mmol/L [facility] Comment:Testing performed by : [address], [place]., [address] BUN 91(H) 6 - 25 mg/dL [facility] Comment:Testing performed by : [address], [place]., [address] Creatinine 2.80(H) 0.60 - 1.10 mg/dL [facility] Comment:Testing performed by : [address] [address] Glucose 70 70 - 199 mg/dL [facility] Comment: Interpretive Data Fasting glucose >/= 126 mg/dl is diagnostic for diabetes. Fasting is defined as no caloric intake for at least 8 hours. Fasting glucose between 100 mg/dl to 125 mg/dl is diagnostic of prediabetes. In a patient with classic symptoms of hyperglycemia or hyperglycemic crisis, a random glucose >/= 200 mg/dl is diagnostic for diabetes. In the absence of unequivocal hyperglycemia, results should be confirmed by repeat testing. The classification and Diagnosis of Diabetes Diabetes Care 202; 46: S19-S40. Current interpretive data was last revised 2022. Testing performed by: [address] [address] Calcium 7.0(L) 8.5 - 10.3 mg/dL [facility] Comment:Testing performed by : [address], [place]., [address] Bilirubin, total 0.2 0.1 - 1.2 mg/dL [facility] Comment:Testing performed by : [address] [address] Protein, pl 5.9(L) 6.5 - 8.5 g/dL [facility] LOYA Comment:Testing performed by : [address] [address] Albumin 3.1(L) 3.5 - 5.0 g/dL [facility] Comment:Testing performed by : [address] [address] Alk phos 43 40 - 130 Units/L [facility] Comment:Testing performed by : [address] [address] ALT 9 7 - 45 Units/L [facility] Comment:Testing performed by : [address] [address] AST 20 10 - 45 Units/L [facility] Comment:Testing performed by : [address] [address] Blood 01/03/2025 4:59 AM CHANGE MANAGEMENT ANALYST 01/03/2025 5:51 AM CHANGE MANAGEMENT ANALYST us Rica Khan MEDIA ANALYST LAB BLOOD ORDERABLES Final Res ult [facility] [address] [facility] [place] [address] * (ABNORMAL) eGFR (01/02/2025 5:19 AM CHANGE MANAGEMENT ANALYST) eGFR 16(L) >=60 mL/min/1. 73 m2 Comment: Interpretive Data Reference Interval Normal >/= 90 mL/min/1.73m2 Mildly decreased* 60 - 89 mL/min/1.73m2 Mildly to moderately decreased 45 - 59 mL/min/1.73m2 Moderately to severely decreased 30 - 44 mL/min/1.73m2 Severely decreased 15 - 29 mL/min/1.73m2 Kidney Failure < 15 mL/min/1.73m2 *Relative to young adult level Estimated glomerular filtration rate is determined by the 2020 CKD-EPI equation recommended by the National Kidney Foundation (A Unifying Approach to GFR Estimation: Recommendations of the NKF-ASK Task Force on Reassessing the Inclusion of Race in Diagnosing Kidney Disease, JASN 2020). The CKD-EPI equation should not be used for patients with unstable renal function and has not been validated in children and those over 70. Current interpretive data was last reviewed 2021. Testing performed by: [address] [address] Blood 01/02/2025 5:19 AM CHANGE MANAGEMENT ANALYST 01/02/2025 5:43 AM CHANGE MANAGEMENT ANALYST us Rica Khan MEDIA ANALYST LAB BLOOD ORDERABLES Final Res ult [facility] [address] [facility] [place] [address] * Differential, auto (01/02/2025 5:19 AM CHANGE MANAGEMENT ANALYST) Neutrophil abs 1.9 1.5 - 6.5 K/cumm Comment:Testing performed by : [address] [address] Imm gran abs 0.0 0.0 - 0.1 K/cumm [facility] Comment:Testing performed by : [address] [address] Lymphocyte abs 2.0 0.8 - 3.3 K/cumm [facility] Comment:Testing performed by : [address] [address] [address] Monocyte abs 0.6 0.2 - 0.8 K/cumm [facility]BE Comment:Testing performed by : [address] [address] Eosinophil abs 0.3 0.0 - 0.5 K/cumm A[facility]BE Comment:Testing performed by : [address] [address] Basophil abs 0.0 0.0 - 0.1 K/cumm [facility]BE Comment:Testing performed by : [address] [address] Neutrophil pct 38.7 % [facility] Comment: Interpretive Data Percent cell count reference ranges are not reported, since discordance with absolute values may lead to misinterpretation of CBC data. Current Interpretive Data was last revised on 2018. Testing performed by: [address] [address] Imm gran pct 0.8 % [facility] Comment: Interpretive Data Percent cell count reference ranges are not reported, since discordance with absolute values may lead to misinterpretation of CBC data. Current Interpretive Data was last revised on 2018. Testing performed by: [address] [address] Lymphocyte pct 42.1 % [facility] Comment: Interpretive Data Percent cell count reference ranges are not reported, since discordance with absolute values may lead to misinterpretation of CBC data. Current Interpretive Data was last revised on 2018. Testing performed by: [address] [address] Monocyte pct 12.8 % [facility] Comment: Interpretive Data Percent cell count reference ranges are not reported, since discordance with absolute values may lead to misinterpretation of CBC data. Current Interpretive Data was last revised on 2018. Testing performed by: [address] [address] Eosinophil pct 5.2 % [facility] Comment: Interpretive Data Percent cell count reference ranges are not reported, since discordance with absolute values may lead to misinterpretation of CBC data. Current Interpretive Data was last revised on 2018. Testing performed by: [address] [address] Basophil pct 0.4 % [facility] Comment: Interpretive Data Percent cell count reference ranges are not reported, since discordance with absolute values may lead to misinterpretation of CBC data. Current Interpretive Data was last revised on 2018. Testing performed by: [address] [address] Blood 01/02/2025 5:19 AM CHANGE MANAGEMENT ANALYST 01/02/2025 5:43 AM CHANGE MANAGEMENT ANALYST us Ken Saul MD LAB BLOOD ORDERABLES Final Re sult [facility] [address] [facility] [place] [address] * (ABNORMAL) Pro B-type natriuretic peptide (01/02/2025 5:19 AM CHANGE MANAGEMENT ANALYST) NT-proBNP 14,171(H) <=450 pg/mL Comment: Interpretive Comments: A. Dyspnea in Acute Care Setting All Ages: < 300 pg/ml, acute heart failure unlikely. < 50 yrs: 300 - 450 pg/ml, further investigation warranted. > 450 pg/ml, acute heart failure likely. 50 - 74 yrs: 300 - 900 pg/ml, further investigation warranted. > 900 pg/ml, acute heart failure likely . > or = 75 yrs: 450 - 1800 pg/ml, further investigation warranted. > 1800 pg/ml, acute heart failure likely. B. Non-acute Setting < 75 yrs < 125 pg/ml, rules out heart failure. > or = 125 pg/ml, further investigation warranted. > or = 75 yrs < 450 pg/ml, rules out heart failure. > or = 450 pg/ml, further investigation warranted. - Knowledge of each individual patient's NT-proBNP range may be more useful than using similar cut-points for every patient. Please note that marked elevations in NT-proBNP levels may be observed in state other than Left Ventricular Congestive Failure, including: acute coronary syndromes, right heart strain/failure (including pulmonary embolism and cor pulmonale), critical illness, renal failure, as well as advanced age. - References: 1. Aida ASHFORD et.al. Eur Heart J. 2006:27:330-337. 2. Keith RW, Chela MIRELES. J. AM Cortez Cardiol: Cardiovasc Imag. 2009;2: 216- 225. Interpretive Data Last Revised Date: 2018. Testing performed by: [facility], [address] [place] [address]., [address] Blood 01/02/2025 5:19 AM CHANGE MANAGEMENT ANALYST 01/02/2025 5:43 AM CHANGE MANAGEMENT ANALYST us Marino Hernandez MD LAB BLOOD ORDERABLES Fi nal Result [facility] [address] [facility] [place] [address] * (ABNORMAL) Calcium, ionized (01/02/2025 5:19 AM CHANGE MANAGEMENT ANALYST) [facility] Calcium, Ionized 3.70(L) 4.50 - 5.10 mg/dL Blood 01/02/2025 5:19 AM CHANGE MANAGEMENT ANALYST 01/02/2025 6:25 AM CHANGE MANAGEMENT ANALYST Ken Saul MD LAB BLOOD ORDERABLES Final Re sult Performing Organization Address [facility]/State/ZIP Co de Phone Number [facility] [address] [facility] [place] [address] * (ABNORMAL) Iron profile w/ IBC (01/02/2025 5:19 AM CHANGE MANAGEMENT ANALYST) [facility] Iron 26(L) 35 - 145 mcg/dL Comment:Testing performed by : [address] [address] TIBC 185(L) 250 - 400 mcg/dL [facility] Comment:Testing performed by : [address] [address] Transferrin saturation 14(L) 20 - 50 % [facility] Comment:Testing performed by : [address] [address] Blood 01/02/2025 5:19 AM CHANGE MANAGEMENT ANALYST 01/02/2025 5:43 AM CHANGE MANAGEMENT ANALYST Ken Saul MD LAB BLOOD ORDERABLES Final Re sult Performing Organization Address City/[facility] Co de Phone Number [facility] [address] [facility] [place] [address] * (ABNORMAL) CBC with auto differential (01/02/2025 5:19 AM CHANGE MANAGEMENT ANALYST) [facility] WBC 4.8 3.8 - 9.9 K/cumm Comment:Testing performed by : [address] [address] Hgb 8.1(L) 11.9 - 15.5 g/dL [facility] Comment:Testing performed by : [address], [address] Hct 25.4(L) 35.6 - 45.5 % [facility] Comment:Testing performed by : [address] [address] Plt 117(L) 150 - 400 K/cumm [facility] Comment:Testing performed by : [address] [address] MPV 9.3 9.1 - 12.3 fL [facility] Comment:Testing performed by : [address], [address] RBC 2.77(L) 3.90 - 5.20 M/cumm [facility] Comment:Testing performed by : [address], [address] MCV 91.7 81.3 - 96.4 fL [facility] Comment:Testing performed by : [address], [address] MCH 29.2 27.1 - 33.3 pg [facility] Comment:Testing performed by : [address] [address] MCHC 31.9(L) 32.3 - 35.7 g/dL [facility] Comment:Testing performed by : [address], [address] RDW CV 14.6 11.1 - 14.9 % [facility] Comment:Testing performed by : [address], [address] RDW SD 49.4(H) 35.7 - 48.1 fL [facility] Comment:Testing performed by : [address] [address] NRBC abs 0.00 0.00 - 0.01 K/cumm [facility] Comment:Testing performed by : [address], [address] Blood 01/02/2025 5:19 AM CHANGE MANAGEMENT ANALYST 01/02/2025 5:43 AM CHANGE MANAGEMENT ANALYST us Ken Saul MD LAB BLOOD ORDERABLES Final Re sult Performing Organization Address [facility] de Phone Number [address] [address] * (ABNORMAL) Phosphorus (01/02/2025 5:19 AM CHANGE MANAGEMENT ANALYST) Phosphorus, pl 5.3(H) 2.3 - 4.5 mg/dL Comment:Testing performed by : [address] [address] Blood 01/02/2025 5:19 AM CHANGE MANAGEMENT ANALYST 01/02/2025 5:43 AM CHANGE MANAGEMENT ANALYST Marino Hernandez MD LAB BLOOD ORDERABLES Fi nal Result Performing Organization Address [facility] de Phone Number [address] [address] * PTH (01/02/2025 5:19 AM CHANGE MANAGEMENT ANALYST) PTH 38 15 - 65 pg/mL Comment:Testing performed by : [address] [address] Blood 01/02/2025 5:19 AM CHANGE MANAGEMENT ANALYST 01/02/2025 5:43 AM CHANGE MANAGEMENT ANALYST Ken Saul MD LAB BLOOD ORDERABLES Final Re sult Performing Organization Address [facility] de Phone Number [address] [place] [address] * Magnesium (01/02/2025 5:19 AM CHANGE MANAGEMENT ANALYST) Magnesium 2.0 1.4 - 2.5 mg/dL Comment:Testing performed by : [address] [address] Blood 01/02/2025 5:19 AM CHANGE MANAGEMENT ANALYST 01/02/2025 5:43 AM CHANGE MANAGEMENT ANALYST Marino Hernandez MD LAB BLOOD ORDERABLES Fi nal Result Performing Organization Address City/[facility]/ZIP Co de Phone Number [facility] [place] [address] * Vitamin B12 (01/02/2025 5:19 AM CHANGE MANAGEMENT ANALYST) [facility] Vitamin B12 405 230 - 1,250 pg/mL Comment:Testing performed by : [address] [address] Blood 01/02/2025 5:19 AM CHANGE MANAGEMENT ANALYST 01/02/2025 5:43 AM CHANGE MANAGEMENT ANALYST us Ken Saul MD LAB BLOOD ORDERABLES Final Re sult Performing Organization Address [facility] Co de Phone Number [facility] [address] [place] [address] * (ABNORMAL) Comprehensive metabolic panel (01/02/2025 5:19 AM CHANGE MANAGEMENT ANALYST) [facility] Sodium 128(L) 135 - 145 mmol/L Comment:Testing performed by : [address] [address] Potassium, pl 5.0(H) 3.3 - 4.9 mmol/L [facility] Comment:Testing performed by : [address] [address] Chloride 93(L) 97 - 110 mmol/L [facility] Comment:Testing performed by : [address] [address] CO2 21(L) 22 - 32 mmol/L [facility] Comment:Testing performed by : [address] [address] Anion gap 14 2 - 15 mmol/L [facility] Comment:Testing performed by : [address] [address] BUN 91(H) 6 - 25 mg/dL [facility] Comment:Testing performed by : [address] [address] Creatinine 2.90(H) 0.60 - 1.10 mg/dL [facility] Comment:Testing performed by : [address] [place] [address] Glucose 63(L) 70 - 199 mg/dL [facility] Comment: Interpretive Data Fasting glucose >/= 126 mg/dl is diagnostic for diabetes. Fasting is defined as no caloric intake for at least 8 hours. Fasting glucose between 100 mg/dl to 125 mg/dl is diagnostic of prediabetes. In a patient with classic symptoms of hyperglycemia or hyperglycemic crisis, a random glucose >/= 200 mg/dl is diagnostic for diabetes. In the absence of unequivocal hyperglycemia, results should be confirmed by repeat testing. The classification and Diagnosis of Diabetes Diabetes Care 2021; 46: S19-S40. Current interpretive data was last revised 2022. Testing performed by: [address] [address] Calcium 7.0(L) 8.5 - 10.3 mg/dL [facility] Comment:Testing performed by : [address] [address] Bilirubin, total 0.2 0.1 - 1.2 mg/dL [facility] Comment:Testing performed by : [address] [address] Protein, pl 5.8(L) 6.5 - 8.5 g/dL [facility] Comment:Testing performed by : [address] [address] Albumin 3.0(L) 3.5 - 5.0 g/dL [facility] Comment:Testing performed by : [address] [address] Alk phos 43 40 - 130 Units/L [facility] Comment:Testing performed by : [address] [address] ALT 10 7 - 45 Units/L [facility] Comment:Testing performed by : [address] [address] AST 22 10 - 45 Units/L [facility] Comment:Testing performed by : [address] [address] Blood 01/02/2025 5:19 AM CHANGE MANAGEMENT ANALYST 01/02/2025 5:43 AM CHANGE MANAGEMENT ANALYST us Rica Khan MEDIA ANALYST LAB BLOOD ORDERABLES Final Res ult NINAWNF [address] [facility] [place] [address] * (ABNORMAL) Pro B-type natriuretic peptide (01/01/2025 5:13 PM CHANGE MANAGEMENT ANALYST) NT-proBNP 12,450(H) <=450 pg/mL Comment: Interpretive Comments: A. Dyspnea in Acute Care Setting All Ages: < 300 pg/ml, acute heart failure unlikely. < 50 yrs: 300 - 450 pg/ml, further investigation warranted. > 450 pg/ml, acute heart failure likely. 50 - 74 yrs: 300 - 900 pg/ml, further investigation warranted. > 900 pg/ml, acute heart failure likely . > or = 75 yrs: 450 - 1800 pg/ml, further investigation warranted. > 1800 pg/ml, acute heart failure likely. B. Non-acute Setting < 75 yrs < 125 pg/ml, rules out heart failure. > or = 125 pg/ml, further investigation warranted. > or = 75 yrs < 450 pg/ml, rules out heart failure. > or = 450 pg/ml, further investigation warranted. - Knowledge of each individual patient's NT-proBNP range may be more useful than using similar cut-points for every patient. Please note that marked elevations in NT-proBNP levels may be observed in state other than Left Ventricular Congestive Failure, including: acute coronary syndromes, right heart strain/failure (including pulmonary embolism and cor pulmonale), critical illness, renal failure, as well as advanced age. - References: 1. Aida ASHFORD et.al. Eur Heart J. 2006:27:330-337. 2. Keith RW, Chela AM. J. AM Cortez Cardiol: Cardiovasc Imag. 2009;2: 216- 225. Interpretive Data Last Revised Date: 2018. Testing performed by: [facility], [address] [place] [address]., [address] Blood 01/01/2025 5:13 PM CHANGE MANAGEMENT ANALYST 01/01/2025 5:35 PM CHANGE MANAGEMENT ANALYST us Marino Hernandez MD LAB BLOOD ORDERABLES Fi nal Result [facility] [address] [facility] [place] [address] * XR Chest PA Lateral 2 Views (01/01/2025 1:07 PM CHANGE MANAGEMENT ANALYST) Anatomical Region Laterality Modality Body, Chest N/A Computed Radiogr aphy 01/01/2025 3:10 PM CHANGE MANAGEMENT ANALYST Narrative 01/01/2025 3:12 PM CHANGE MANAGEMENT ANALYST EXAM DESCRIPTION: XR CHEST PA LATERAL 2 VIEWS REASON FOR STUDY: SOB Onset of SOB approx 1 week ago TECHNIQUE: 2 radiographic view(s) of the chest. COMPARISON: Chest radiograph 12/26/2024 FINDINGS: LUNGS: Mild bilateral interstitial edema. Small bilateral pleural effusions and bibasilar atelectasis. No pneumothorax HEART/MEDIASTINUM: Cardiac silhouette is enlarged. Mediastinal and hilar contours appear normal. LINES/TUBES: None. BONES: No acute osseous abnormality. IMPRESSION: Mild bilateral interstitial edema. Small bilateral pleural effusions and bibasilar atelectasis. THIS IS AN ELECTRONICALLY VERIFIED FINAL REPORT 01/01/2025 3:12 PM - Electronically signed by Stacey Mo M.D. FT: FT Report ID: [id number] [place] Location: [place] [address] Procedure Note Stacey Negron MD - 01/01/2025 EXAM DESCRIPTION: XR CHEST PA LATERAL 2 VIEWS REASON FOR STUDY: SOB Onset of SOB approx 1 week ago TECHNIQUE: 2 radiographic view(s) of the chest. COMPARISON: Chest radiograph 12/26/2024 FINDINGS: LUNGS: Mild bilateral interstitial edema. Small bilateralpleural effusions and bibasilar atelectasis. No pneumothorax HEART/MEDIASTINUM: Cardiac silhouette is enlarged. Mediastinal and hilar contours appear normal. LINES/TUBES: None. BONES: No acute osseous abnormality. IMPRESSION: Mild bilateral interstitial edema. Small bilateral pleural effusions and bibasilar atelectasis. THIS IS AN ELECTRONICALLY VERIFIED FINAL REPORT 01/01/2025 3:12 PM - Electronically signed by Stacey Mo M.D. FT: FT Report ID: [id number] [place] Location: [place] [address] Ken Saul MD IMG XR PROCEDURES Final Resul t * (ABNORMAL) Albumin Creatinine Ratio, Urine (01/01/2025 12:33 PM CHANGE MANAGEMENT ANALYST) Albumin Ur 86.3 mg/L Comment: Interpretive Data No reference range established. Current interpretive data was last revised 2019. Testing performed by: [address] [address] Creatinine Ur 58.3 mg/dL [facility] Comment: Interpretive Data No reference range established. Current interpretive data was last revised 2019. Testing performed by: [address] [address] Albumin Creatinine Ratio, Ur 148(H) 1 - 29 mg/g [facility] Comment:Testing performed by : [address] [address] Urine 01/01/2025 12:3 3 PM CHANGE MANAGEMENT ANALYST 01/01/2025 3:50 PM CHANGE MANAGEMENT ANALYST Ken Saul MD LAB URINE ORDERABLES Final Re sult [facility] [address] [facility] [place] [address] * (ABNORMAL) eGFR (01/01/2025 5:26 AM CHANGE MANAGEMENT ANALYST) eGFR 18(L) >=60 mL/min/1. 73 m2 Comment: Interpretive Data Reference Interval Normal >/= 90 mL/min/1.73m2 Mildly decreased* 60 - 89 mL/min/1.73m2 Mildly to moderately decreased 45 - 59 mL/min/1.73m2 Moderately to severely decreased 30 - 44 mL/min/1.73m2 Severely decreased 15 - 29 mL/min/1.73m2 Kidney Failure < 15 mL/min/1.73m2 *Relative to young adult level Estimated glomerular filtration rate is determined by the 2020 CKD-EPI equation recommended by the National Kidney Foundation (A Unifying Approach to GFR Estimation: Recommendations of the NKF-ASK Task Force on Reassessing the Inclusion of Race in Diagnosing Kidney Disease, JASN 202). The CKD-EPI equation should not be used for patients with unstable renal function and has not been validated in children and those over 70. Current interpretive data was last reviewed 2021. Testing performed by: [address] [address] Blood 01/01/2025 5:26 AM CHANGE MANAGEMENT ANALYST 01/01/2025 5:53 AM CHANGE MANAGEMENT ANALYST us Rica Khan MEDIA ANALYST LAB BLOOD ORDERABLES Final Res ult [facility] Department [place] [address] * (ABNORMAL) Comprehensive metabolic panel (01/01/2025 5:26 AM CHANGE MANAGEMENT ANALYST) Sodium 132(L) 135 - 145 mmol/L Comment:Testing performed by : [address] [address] Potassium, pl 4.7 3.3 - 4.9 mmol/L [facility]BE LOYA Comment:Testing performed by : [address] [address] Chloride 96(L) 97 - 110 mmol/L [facility]BE Comment:Testing performed by : [address] [address] CO2 23 22 - 32 mmol/L [facility]BE LOYA Comment:Testing performed by : [address] [address] Anion gap 13 2 - 15 mmol/L [facility] LOYA Comment:Testing performed by : [address] [address] BUN 88(H) 6 - 25 mg/dL [facility] LOYA Comment:Testing performed by : [address] [address] Creatinine 2.70(H) 0.60 - 1.10 mg/dL [facility] Comment:Testing performed by : [address] [address] Glucose 74 70 - 199 mg/dL [facility] Comment: Interpretive Data Fasting glucose >/= 126 mg/dl is diagnostic for diabetes. Fasting is defined as no caloric intake for at least 8 hours. Fasting glucose between 100 mg/dl to 125 mg/dl is diagnostic of prediabetes. In a patient with classic symptoms of hyperglycemia or hyperglycemic crisis, a random glucose >/= 200 mg/dl is diagnostic for diabetes. In the absence of unequivocal hyperglycemia, results should be confirmed by repeat testing. The classification and Diagnosis of Diabetes Diabetes Care 202; 46: S19-S40. Current interpretive data was last revised 2022. Testing performed by: [address] [address] Calcium 7.2(L) 8.5 - 10.3 mg/dL [facility] Comment:Testing performed by : [address] [address] Bilirubin, total 0.2 0.1 - 1.2 mg/dL [facility] Comment:Testing performed by : [address] [address] Protein, pl 5.9(L) 6.5 - 8.5 g/dL [facility] Comment:Testing performed by : [address] [address] Albumin 3.0(L) 3.5 - 5.0 g/dL [facility] Comment:Testing performed by : [address] [address] Alk phos 40 40 - 130 Units/L [facility] Comment:Testing performed by : [address] [address] ALT 9 7 - 45 Units/L [facility] Comment:Testing performed by : [address] [address] AST 19 10 - 45 Units/L [facility] Comment:Testing performed by : [address] [address] Blood 01/01/2025 5:26 AM CHANGE MANAGEMENT ANALYST 01/01/2025 5:53 AM CHANGE MANAGEMENT ANALYST Rica Khan MEDIA ANALYST LAB BLOOD ORDERABLES Final Res ult Performing Organization Address [facility] Co de Phone Number A[facility] [address] [address] * (ABNORMAL) eGFR (12/31/2024 5:17 AM CHANGE MANAGEMENT ANALYST) Pathologist [facility] eGFR 17(L) >=60 mL/min/1. 73 m2 Comment: Interpretive Data Reference Interval Normal >/= 90 mL/min/1.73m2 Mildly decreased* 60 - 89 mL/min/1.73m2 Mildly to moderately decreased 45 - 59 mL/min/1.73m2 Moderately to severely decreased 30 - 44 mL/min/1.73m2 Severely decreased 15 - 29 mL/min/1.73m2 Kidney Failure < 15 mL/min/1.73m2 *Relative to young adult level Estimated glomerular filtration rate is determined by the 2020 CKD-EPI equation recommended by the National Kidney Foundation (A Unifying Approach to GFR Estimation: Recommendations of the NKF-ASK Task Force on Reassessing the Inclusion of Race in Diagnosing Kidney Disease, JASN 2020). The CKD-EPI equation should not be used for patients with unstable renal function and has not been validated in children and those over 70. Current interpretive data was last reviewed 2021. Testing performed by: [facility], [address] [place] [address]., [address] Blood 12/31/2024 5:17 AM CHANGE MANAGEMENT ANALYST 12/31/2024 6:20 AM CHANGE MANAGEMENT ANALYST us Rica Khan MEDIA ANALYST LAB BLOOD ORDERABLES Final Res ult Performing Organization Address City/[facility]/ZIP Co de Phone Number ABEBE [address] [place] [address] * Differential, auto (12/31/2024 5:17 AM CHANGE MANAGEMENT ANALYST) [facility] Neutrophil abs 2.0 1.5 - 6.5 K/cumm Comment:Testing performed by : [address], [place]., [address] Imm gran abs 0.0 0.0 - 0.1 K/cumm [facility] Comment:Testing performed by : [address], [place]., [address] Lymphocyte abs 1.1 0.8 - 3.3 K/cumm [facility] Comment:Testing performed by : [address], [place]., [address] Monocyte abs 0.5 0.2 - 0.8 K/cumm [facility] Comment:Testing performed by : [address] [address] Eosinophil abs 0.2 0.0 - 0.5 K/cumm [facility] Comment:Testing performed by : [address] [address] Basophil abs 0.0 0.0 - 0.1 K/cumm [facility] Comment:Testing performed by : [address] [address] Neutrophil pct 51.2 % [facility] Comment: Interpretive Data Percent cell count reference ranges are not reported, since discordance with absolute values may lead to misinterpretation of CBC data. Current Interpretive Data was last revised on 2018. Testing performed by: [address] [address] Imm gran pct 1.0 % [facility] Comment: Interpretive Data Percent cell count reference ranges are not reported, since discordance with absolute values may lead to misinterpretation of CBC data. Current Interpretive Data was last revised on 2018. Testing performed by: [address] [address] Lymphocyte pct 29.0 % [facility] Comment: Interpretive Data Percent cell count reference ranges are not reported, since discordance with absolute values may lead to misinterpretation of CBC data. Current Interpretive Data was last revised on 2018. Testing performed by: [address] [address] Monocyte pct 13.7 % [facility] Comment: Interpretive Data Percent cell count reference ranges are not reported, since discordance with absolute values may lead to misinterpretation of CBC data. Current Interpretive Data was last revised on 2018. Testing performed by: [address] [address] Eosinophil pct 4.6 % [facility] Comment: Interpretive Data Percent cell count reference ranges are not reported, since discordance with absolute values may lead to misinterpretation of CBC data. Current Interpretive Data was last revised on 2018. Testing performed by: [address] [address] Basophil pct 0.5 % [facility] Comment: Interpretive Data Percent cell count reference ranges are not reported, since discordance with absolute values may lead to misinterpretation of CBC data. Current Interpretive Data was last revised on 2018. Testing performed by: [address] [address] Blood 12/31/2024 5:17 AM CHANGE MANAGEMENT ANALYST 12/31/2024 6:20 AM CHANGE MANAGEMENT ANALYST us Ken Saul MD LAB BLOOD ORDERABLES Final Re sult [facility] [address] [facility] [place] [address] * (ABNORMAL) CBC with auto differential (12/31/2024 5:17 AM CHANGE MANAGEMENT ANALYST) WBC 3.9 3.8 - 9.9 K/cumm Comment:Testing performed by : [address] [address] Hgb 8.0(L) 11.9 - 15.5 g/dL [facility] LOYA Comment:Testing performed by : [address] [address] Hct 25.3(L) 35.6 - 45.5 % [facility] LOYA Comment:Testing performed by : [address] [address] Plt 131(L) 150 - 400 K/cumm [facility] LOYA Comment:Testing performed by : [address] [address] MPV 9.7 9.1 - 12.3 fL [facility] LOYA Comment:Testing performed by : [address] [address] RBC 2.75(L) 3.90 - 5.20 M/cumm [facility] LOYA Comment:Testing performed by : [address] [address] MCV 92.0 81.3 - 96.4 fL [facility] Comment:Testing performed by : [address] [address] MCH 29.1 27.1 - 33.3 pg [facility] Comment:Testing performed by : [address], [address] MCHC 31.6(L) 32.3 - 35.7 g/dL ABEBE Comment:Testing performed by : [address], [address] RDW CV 14.5 11.1 - 14.9 % ABEBE Comment:Testing performed by : [address], [address] RDW SD 48.6(H) 35.7 - 48.1 fL ABEBE Comment:Testing performed by : [address], [address] NRBC abs 0.00 0.00 - 0.01 K/cumm ABEBE Comment:Testing performed by : [address] [address] Blood 12/31/2024 5:17 AM CHANGE MANAGEMENT ANALYST 12/31/2024 6:20 AM CHANGE MANAGEMENT ANALYST us Ken Saul MD LAB BLOOD ORDERABLES Final Re sult [facility] [address] [facility] Department of Laboratories [place], [place] [id number] * (ABNORMAL) Comprehensive metabolic panel (12/31/2024 5:17 AM CHANGE MANAGEMENT ANALYST) Sodium 130(L) 135 - 145 mmol/L Comment:Testing performed by : [facility], [address] [place] [address]., [address] Potassium, pl 4.7 3.3 - 4.9 mmol/L ABEBE Comment:Testing performed by : [address], [place]., [address] Chloride 96(L) 97 - 110 mmol/L ABEBE Comment:Testing performed by : [address], [place]., [address] CO2 20(L) 22 - 32 mmol/L CERRITCHIE Comment:Testing performed by : [address], [place]., [address] Anion gap 14 2 - 15 mmol/L ABEBE Comment:Testing performed by : [address] [address] BUN 89(H) 6 - 25 mg/dL ABEBE Comment:Testing performed by : [address] [address] Creatinine 2.80(H) 0.60 - 1.10 mg/dL [facility] Comment:Testing performed by : [address] [address] Glucose 70 70 - 199 mg/dL [facility] Comment: Interpretive Data Fasting glucose >/= 126 mg/dl is diagnostic for diabetes. Fasting is defined as no caloric intake for at least 8 hours. Fasting glucose between 100 mg/dl to 125 mg/dl is diagnostic of prediabetes. In a patient with classic symptoms of hyperglycemia or hyperglycemic crisis, a random glucose >/= 200 mg/dl is diagnostic for diabetes. In the absence of unequivocal hyperglycemia, results should be confirmed by repeat testing. The classification and Diagnosis of Diabetes Diabetes Care 202; 46: S19-S40. Current interpretive data was last revised 2022. Testing performed by: [address] [address] Calcium 7.2(L) 8.5 - 10.3 mg/dL ABEBE Comment:Testing performed by : [address] [address] Bilirubin, total 0.2 0.1 - 1.2 mg/dL [facility]BEBE Comment:Testing performed by : [address] [address] Protein, pl 5.7(L) 6.5 - 8.5 g/dL ABEBE Comment:Testing performed by : [address] [address] Albumin 2.8(L) 3.5 - 5.0 g/dL ABEBE Comment:Testing performed by : [address], [address] Alk phos 38(L) 40 - 130 Units/L ABEBE Comment:Testing performed by : [address], [facility], [address] ALT 7 7 - 45 Units/L ABEBE Comment:Testing performed by : [address] [address] AST 15 10 - 45 Units/L ABEBE Comment:Testing performed by : [address], [address] Blood 12/31/2024 5:17 AM CHANGE MANAGEMENT ANALYST 12/31/2024 6:20 AM CHANGE MANAGEMENT ANALYST us iRca Khan MEDIA ANALYST LAB BLOOD ORDERABLES Final Res ult ABEBE LOYA [facility] [place] [address] * TRANSTHORACIC ECHO (TTE) LIMITED/FOLLOW UP W LTD DOPPLER/CF W CONTRAST (12/30/2024 3:45 PM CHANGE MANAGEMENT ANALYST) LV EF 55-60 % CONS SCIMAGE Anatomical Region Laterality Modality Ultrasound 12/30/2024 3:02 PM CHANGE MANAGEMENT ANALYST Narrative 01/01/2025 3:58 PM CHANGE MANAGEMENT ANALYST Transthoracic Echocardiographic Report Patient Name: NEGRITA LINCOLN C : 1950 (74y 1m) Gender: F Study Date: 12/30/2024 03:02:23 PM Ht(Inch): 64 Wt(Lb): 157.01 BSA: 1.79 Senior Systems Administrator: Marcelle Cade RDCS Location: [id number] Order Provider: ANDREI NEFF Heart Rate: 70 BMI: 26.95 BP: 130 / 57 Ref Provider: ANDREI NEFF Report amended on 2025-01-02 at 16:45:36 CHANGE MANAGEMENT ANALYST: Added/Modified: Mitral Valve [MODIFIED]: [MODIFIED] Mitral Regurgitation: Severe Conclusions [MODIFIED]: [MODIFIED TEXT] Mitral Valve Findings: There is severe mitral regurgitation. [MODIFIED TEXT] Conclusions: Mildly dilated left ventricle cavity. The Ejection Fraction (Gonzalez's) is measured at 64 %. The Ejection Fraction is visually estimated to be 55-60 %. Mild to moderately dilated left atrium with FALLON 41. There is severe mitral regurgitation. There is moderate to severe tricuspid regurgitation. Comments: After further review , given LA and LV dilation, there is likely moderate-severe MR. Previously Signed by:Kimmie Godoy MD 2025-01-01 15:57:33 CHANGE MANAGEMENT ANALYST End of Addendum PROCEDURES: Echocardiographic Report: ([id number]) Limited Echocardiography with contrast, transthoracic, 2D, includes M-mode recording, when performed, limited study. Contrast: A contrast injection of Definity was performed to improve assessment of LV function. Definity Lot Number: [id number]. INDICATIONS: Mitral Regurgitation, Tricuspid Regurgitation, determine severity shortness of breath. FINDINGS: Left Ventricle: Mildly dilated left ventricle cavity. Mildly dilated left ventricle based on volume index. Normal left ventricular systolic function. The Ejection Fraction (Gonzalez's) is measured at 64 %. The Ejection Fraction is visually estimated to be 55-60 %. Diastolic Function Left ventricular diastolic function is indeterminate in this study due to the presence of ___(insert). Regional Wall Motion: There are no regional wall motion abnormalities. Right Ventricle: Normal right ventricular size. Normal right ventricular systolic function. Catheter noted in right heart. Left Atrium: Mild to moderately dilated left atrium. Right Atrium: The right atrium is normal in size. Mitral Valve: Moderate mitral annular calcification. There is severe mitral regurgitation. The mean transmitral gradient is: 1 mmHg. Aortic Valve: Aortic cusps appear moderately calcified. The mean transaortic gradient is 11 mmHg. The aortic valve area by the continuity equation (using VTI) is 2.36 cm2. The aortic valve area by the continuity equation (using Peak Luis) is 2.38 cm2. Tricuspid Valve: There is moderate to severe tricuspid regurgitation. Pulmonic Valve: Pulmonic Valve not well visualized due to poor echo windows. CONCLUSIONS: 1. Mildly dilated left ventricle cavity. The Ejection Fraction (Gonzalez's) is measured at 64 %. The Ejection Fraction is visually estimated to be 55-60 %. 2. Mild to moderately dilated left atrium with FALLON 41. 3. There is severe mitral regurgitation. 4. There is moderate to severe tricuspid regurgitation. MEASUREMENTS: 2D/MM Value Range Doppler Value LVIDd 2D 5.70 cm [ 3.50 - 5.70 ] AV Peak Luis 2.18 m/s LVIDs 2D 3.80 cm [ 3.10 - 4.60 ] AV Peak PG 19.01 mmHg IVSd 2D 1.10 cm [ 0.60 - 1.20 ] AV Mean PG 11.00 mmHg LVPWd 2D 1.30 cm [ 0.60 - 1.10 ] AV VTI 50.40 cm LV Thickness Ratio 0.85 LVOT Peak Luis 1.65 m/s LV Mass 2D 294.60 g LVOT Peak PG 10.89 mmHg LV Mass Index 2D 164.58 g/m2 LVOT Mean PG 5.00 mmHg RWT 0.46 LVOT VTI 37.90 cm EDV Mod BP 176.00 ml [ 46.00 - 106.00 ] LVOT Diam 2.00 cm LV EDV Index 98.32 ml/m2 ALIZA VTI 2.36 cm2 ESV Mod BP 63.60 ml [ 14.00 - 42.00 ] ALIZA Vmax 2.38 cm2 EF Mod BP 64 % [ 54 - 74 ] LVOT/AV VTI 0.75 - Dimensionless index (DVI) Visually Estimated EF 55-60 % MV Peak Luis 0.69 m/s LA Dimension 2D 4.70 cm [ 1.90 - 4.00 ] MV Peak PG 1.90 mmHg LA Length 2C 5.98 cm MV Mean PG 1.00 mmHg LA Length 4C 5.26 cm MV VTI 20.10 cm LA Volume BP 73.70 ml MR Peak Luis 5.64 m/s LA Volume Index 41.17 ml/m2 [ 16.00 - 34.00 ] MR Peak PG 127.24 mmHg MV Annulus 2D 3.10 cm MR Mean PG 90.00 mmHg RVDd 2D 3.20 cm [ 2.00 - 3.00 ] MR VTI 189.0 cm MR PISA 0.4 cm TR Peak Luis 3.22 m/s TR Peak PG 41.5 mmHg - COMPARISONS: As compared with prior study, the following changes are now seen MR appears more moderate. ATTESTATION: I have reviewed and interpreted the pertinent images and measurements of this study. I attest to the conclusions in the final report that is provided above. DISCLAIMER: The study images and the final report will be retained in the patient chart by the [facility] Laboratory for the legally required time period. This chart constitutes the legal record of any testing performed. Electronically Signed By: Kimmie Godoy MD 2025-01-01 15:57:33 CHANGE MANAGEMENT ANALYST Electronically Amended By: Kimmie Godoy MD 01/02/2025 4:45:36 PM CHANGE MANAGEMENT ANALYST [ADDENDUM] Procedure Note Kimmie Godoy MD - 01/02/2025 Transthoracic Echocardiographic Report Patient Name: NEGRITA LINCOLN C : 1950 (74y 1m) Gender: F Study Date: 12/30/2024 03:02:23 PM Ht(Inch): 64 Wt(Lb): 157.01 BSA: 1.79 Senior Systems Administrator: Marcelle Cade RDCS Location: [id number] Order Provider:ANDREI NEFF Heart Rate: 70 BMI: 26.95 BP: 130 / 57 Ref Provider: ANDREI NEFF Report amended on 2025-01-02 at 16:45:36 CHANGE MANAGEMENT ANALYST: Added/Modified: Mitral Valve [MODIFIED]: [MODIFIED] Mitral Regurgitation: Severe Conclusions [MODIFIED]: [MODIFIED TEXT] Mitral Valve Findings: There is severe mitralregurgitation. [MODIFIED TEXT] Conclusions: Mildly dilated left ventricle cavity. TheEjection Fraction (Gonzalez's) is measured at 64 %. The Ejection Fraction is visuallyestimated to be 55-60 %. Mild to moderately dilated left atrium with FALLON 41. There is severe mitral regurgitation. There is moderate to severe tricuspid regurgitation. Comments: After further review , given LA and LV dilation, there is likelymoderate-severe MR. Previously Signed by:Kimmie Godoy MD 2025-01-01 15:57:33 CHANGE MANAGEMENT ANALYST End of Addendum PROCEDURES: Echocardiographic Report: ([id number]) Limited Echocardiography with contrast,transthoracic, 2D, includes M-mode recording, when performed, limited study. Contrast: A contrast injection of Definity was performed to improveassessment of LV function. Definity Lot Number: [id number]. INDICATIONS: Mitral Regurgitation, Tricuspid Regurgitation, determine severityshortness of breath. FINDINGS: Left Ventricle: Mildly dilated left ventricle cavity. Mildly dilated leftventricle based on volume index. Normal left ventricular systolic function. The EjectionFraction (Gonzalez's) is measured at 64 %. The Ejection Fraction is visuallyestimated to be 55-60 %. Diastolic Function Left ventricular diastolic function is indeterminatein this study due to the presence of ___(insert). Regional Wall Motion: There are no regional wall motion abnormalities. Right Ventricle: Normal right ventricular size. Normal right ventricularsystolic function. Catheter noted in right heart. Left Atrium: Mild to moderately dilated left atrium. Right Atrium: The right atrium is normal in size. Mitral Valve: Moderate mitral annular calcification. There is severemitral regurgitation. The mean transmitral gradient is: 1 mmHg. Aortic Valve: Aortic cusps appear moderately calcified. The meantransaortic gradient is 11 mmHg. The aortic valve area by the continuity equation (using VTI) is2.36 cm2. The aortic valve area by the continuity equation (using Peak Luis) is 2.38cm2. Tricuspid Valve: There is moderate to severe tricuspid regurgitation. Pulmonic Valve: Pulmonic Valve not well visualized due to poor echowindows. CONCLUSIONS: 1. Mildly dilated left ventricle cavity. The Ejection Fraction (Gonzalez's)is measured at 64 %. The Ejection Fraction is visually estimated to be 55-60 %. 2. Mild to moderately dilated left atrium with FALLON 41. 3. There is severe mitral regurgitation. 4. There is moderate to severe tricuspid regurgitation. MEASUREMENTS: 2D/MM Value Range DopplerValue LVIDd 2D 5.70 cm [ 3.50 - 5.70 ] AV Peak Vel2.18 m/s LVIDs 2D 3.80 cm [ 3.10 - 4.60 ] AV Peak PG19.01 mmHg IVSd 2D 1.10 cm [ 0.60 - 1.20 ] AV Mean PG11.00 mmHg LVPWd 2D 1.30 cm [ 0.60 - 1.10 ] AV VTI50.40 cm LV Thickness Ratio 0.85 LVOT PeakVel 1.65 m/s LV Mass 2D 294.60 g LVOT Peak PG10.89 mmHg LV Mass Index 2D 164.58 g/m2 LVOT Mean PG5.00 mmHg RWT 0.46 LVOT VTI37.90 cm EDV Mod BP 176.00 ml [ 46.00 - 106.00 ] LVOT Diam2.00 cm LV EDV Index 98.32 ml/m2 ALIZA VTI2.36 cm2 ESV Mod BP 63.60 ml [ 14.00 - 42.00 ] ALIZA Vmax2.38 cm2 EF Mod BP 64 % [ 54 - 74 ] LVOT/AV VTI0.75 - Dimensionless index (DVI) Visually Estimated EF 55-60 % MV Peak Vel0.69 m/s LA Dimension 2D 4.70 cm [ 1.90 - 4.00 ] MV Peak PG1.90 mmHg LA Length 2C 5.98 cm MV Mean PG1.00 mmHg LA Length 4C 5.26 cm MV VTI20.10 cm LA Volume BP 73.70 ml MR Peak Vel5.64 m/s LA Volume Index 41.17 ml/m2 [ 16.00 - 34.00 ] MR Peak PG127.24 mmHg MV Annulus 2D 3.10 cm MR Mean PG90.00 mmHg RVDd 2D 3.20 cm [ 2.00 - 3.00 ] MR ZAM958.0 cm MR PISA 0.4 cm TR Peak Luis 3.22 m/s TR Peak PG 41.5 mmHg - COMPARISONS: As compared with prior study, the following changes are now seen MRappears more moderate. ATTESTATION: I have reviewed and interpreted the pertinent images and measurements ofthis study. I attest to the conclusions in the final report that is provided above. DISCLAIMER: The study images and the final report will be retained in the patientchart by the Echo Laboratory for the legally required time period. This chart constitutesthe legal record of any testing performed. Electronically Signed By: Kimmie Godoy MD 2025-01-01 15:57:33 CHANGE MANAGEMENT ANALYST Electronically Amended By: Kimmie Godoy MD 01/02/2025 4:45:36 PM CHANGE MANAGEMENT ANALYST [ADDENDUM] us Andrei Neff NP CV ECHO PROCEDURES Edited Resul t - Final * (ABNORMAL) eGFR (12/30/2024 9:55 AM CHANGE MANAGEMENT ANALYST) eGFR 19(L) >=60 mL/min/1. 73 m2 Comment: Interpretive Data Reference Interval Normal >/= 90 mL/min/1.73m2 Mildly decreased* 60 - 89 mL/min/1.73m2 Mildly to moderately decreased 45 - 59 mL/min/1.73m2 Moderately to severely decreased 30 - 44 mL/min/1.73m2 Severely decreased 15 - 29 mL/min/1.73m2 Kidney Failure < 15 mL/min/1.73m2 *Relative to young adult level Estimated glomerular filtration rate is determined by the 2020 CKD-EPI equation recommended by the National Kidney Foundation (A Unifying Approach to GFR Estimation: Recommendations of the NKF-ASK Task Force on Reassessing the Inclusion of Race in Diagnosing Kidney Disease, JASN 2020). The CKD-EPI equation should not be used for patients with unstable renal function and has not been validated in children and those over 70. Current interpretive data was last reviewed 2021. Testing performed by: [facility], [address] [place] [address]., [address] Blood 12/30/2024 9:55 AM CHANGE MANAGEMENT ANALYST 12/30/2024 10:11 AM CHANGE MANAGEMENT ANALYST us Rica Khan MEDIA ANALYST LAB BLOOD ORDERABLES Final Res ult [facility] [address] [facility] [place] [address] * (ABNORMAL) Pro B-type natriuretic peptide (12/30/2024 9:55 AM CHANGE MANAGEMENT ANALYST) NT-proBNP 12,641(H) <=450 pg/mL Comment: Interpretive Comments: A. Dyspnea in Acute Care Setting All Ages: < 300 pg/ml, acute heart failure unlikely. < 50 yrs: 300 - 450 pg/ml, further investigation warranted. > 450 pg/ml, acute heart failure likely. 50 - 74 yrs: 300 - 900 pg/ml, further investigation warranted. > 900 pg/ml, acute heart failure likely . > or = 75 yrs: 450 - 1800 pg/ml, further investigation warranted. > 1800 pg/ml, acute heart failure likely. B. Non-acute Setting < 75 yrs < 125 pg/ml, rules out heart failure. > or = 125 pg/ml, further investigation warranted. > or = 75 yrs < 450 pg/ml, rules out heart failure. > or = 450 pg/ml, further investigation warranted. - Knowledge of each individual patient's NT-proBNP range may be more useful than using similar cut-points for every patient. Please note that marked elevations in NT-proBNP levels may be observed in state other than Left Ventricular Congestive Failure, including: acute coronary syndromes, right heart strain/failure (including pulmonary embolism and cor pulmonale), critical illness, renal failure, as well as advanced age. - References: 1. Aida ASHFORD et.al. Eur Heart J. 2006:27:330-337. 2. Keith SILVERMAN, Chela MIRELES. J. AM Cortez Cardiol: Cardiovasc Imag. 2009;2: 216- 225. Interpretive Data Last Revised Date: 2018. Testing performed by: [address] [address] Blood 12/30/2024 9:55 AM CHANGE MANAGEMENT ANALYST 12/30/2024 10:11 AM CHANGE MANAGEMENT ANALYST Rica Khan MEDIA ANALYST LAB BLOOD ORDERABLES [facility] [place] [address] * (ABNORMAL) Comprehensive metabolic panel (12/30/2024 9:55 AM CHANGE MANAGEMENT ANALYST) Sodium 128(L) 135 - 145 mmol/L Comment:Testing performed by : [address] [address] Potassium, pl 4.4 3.3 - 4.9 mmol/L ABEBE Comment:Testing performed by : [address] [address] Chloride 94(L) 97 - 110 mmol/L ABEBE Comment:Testing performed by : [address] [address] CO2 21(L) 22 - 32 mmol/L ABEBE Comment:Testing performed by : [address] [address] Anion gap 13 2 - 15 mmol/L ABEBE Comment:Testing performed by : [address] [address] BUN 84(H) 6 - 25 mg/dL [facility] Comment:Testing performed by : [address] [address] Creatinine 2.60(H) 0.60 - 1.10 mg/dL [facility] Comment:Testing performed by : [address] [address] Glucose 121 70 - 199 mg/dL [facility] Comment: Interpretive Data Fasting glucose >/= 126 mg/dl is diagnostic for diabetes. Fasting is defined as no caloric intake for at least 8 hours. Fasting glucose between 100 mg/dl to 125 mg/dl is diagnostic of prediabetes. In a patient with classic symptoms of hyperglycemia or hyperglycemic crisis, a random glucose >/= 200 mg/dl is diagnostic for diabetes. In the absence of unequivocal hyperglycemia, results should be confirmed by repeat testing. The classification and Diagnosis of Diabetes Diabetes Care 2021; 46: S19-S40. Current interpretive data was last revised 2022. Testing performed by: [address] [address] Calcium 7.5(L) 8.5 - 10.3 mg/dL [facility] Comment:Testing performed by : [address] [address] Bilirubin, total 0.2 0.1 - 1.2 mg/dL [facility] Comment:Testing performed by : [address] [address] Protein, pl 5.8(L) 6.5 - 8.5 g/dL [facility] Comment:Testing performed by : [address] [address] Albumin 3.0(L) 3.5 - 5.0 g/dL [facility] Comment:Testing performed by : [address] [address] Alk phos 38(L) 40 - 130 Units/L [facility] Comment:Testing performed by : [address] [address] ALT 7 7 - 45 Units/L [facility] Comment:Testing performed by : [address] [place] [address] AST 15 10 - 45 Units/L [facility] Comment:Testing performed by : [facility], [address] [place] [address]., [address] Blood 12/30/2024 9:55 AM CHANGE MANAGEMENT ANALYST 12/30/2024 10:11 AM CHANGE MANAGEMENT ANALYST Rica Khan MEDIA ANALYST LAB BLOOD ORDERABLES Final Res ult Performing Organization Address [facility] Co de Phone Number [place] [phone] [facility] [place] [address] * Tacrolimus level trough (12/29/2024 8:15 AM CHANGE MANAGEMENT ANALYST) Pathologist [facility] Tacrolimus trough 6.6 ng/mL Comment: Interpretive Data Testing performed by liquid chromatography-tandem mass spectrometry. Therapeutic concentrations vary depending on type of transplanted organ and time elapsed since transplant. Typical trough concentrations range from 5-15 ng/mL. This test was developed and its performance characteristics determined by the [facility] consistent with CLIA requirements. This test has not been cleared or approved by the [place] Food and Drug administration. Current interpretive data last reviewed 2020. Testing performed by: [facility], [address] [place]., [address] Blood 12/29/2024 8:15 AM CHANGE MANAGEMENT ANALYST 12/29/2024 2:50 PM CHANGE MANAGEMENT ANALYST Higinio Haji MD LAB BLOOD ORDERABLES Final Resu lt Performing Organization Address [facility] de Phone Number [facility] [address] [facility] [place] [address] * (ABNORMAL) eGFR (12/29/2024 5:57 AM CHANGE MANAGEMENT ANALYST) Pathologist [facility] eGFR 19(L) >=60 mL/min/1. 73 m2 Comment: Interpretive Data Reference Interval Normal >/= 90 mL/min/1.73m2 Mildly decreased* 60 - 89 mL/min/1.73m2 Mildly to moderately decreased 45 - 59 mL/min/1.73m2 Moderately to severely decreased 30 - 44 mL/min/1.73m2 Severely decreased 15 - 29 mL/min/1.73m2 Kidney Failure < 15 mL/min/1.73m2 *Relative to young adult level Estimated glomerular filtration rate is determined by the 2020 CKD-EPI equation recommended by the National Kidney Foundation (A Unifying Approach to GFR Estimation: Recommendations of the NKF-ASK Task Force on Reassessing the Inclusion of Race in Diagnosing Kidney Disease, JASN 2020). The CKD-EPI equation should not be used for patients with unstable renal function and has not been validated in children and those over 70. Current interpretive data was last reviewed 2021. Testing performed by: [facility], [address] [place] [address]., [address] Blood 12/29/2024 5:57 AM CHANGE MANAGEMENT ANALYST 12/29/2024 6:47 AM CHANGE MANAGEMENT ANALYST us Rica Khan MEDIA ANALYST LAB BLOOD ORDERABLES Final Res ult [facility] [address] [facility] [place] [address] * (ABNORMAL) Pro B-type natriuretic peptide (12/29/2024 5:57 AM CHANGE MANAGEMENT ANALYST) NT-proBNP 15,077(H) <=450 pg/mL Comment: Interpretive Comments: A. Dyspnea in Acute Care Setting All Ages: < 300 pg/ml, acute heart failure unlikely. < 50 yrs: 300 - 450 pg/ml, further investigation warranted. > 450 pg/ml, acute heart failure likely. 50 - 74 yrs: 300 - 900 pg/ml, further investigation warranted. > 900 pg/ml, acute heart failure likely . > or = 75 yrs: 450 - 1800 pg/ml, further investigation warranted. > 1800 pg/ml, acute heart failure likely. B. Non-acute Setting < 75 yrs < 125 pg/ml, rules out heart failure. > or = 125 pg/ml, further investigation warranted. > or = 75 yrs < 450 pg/ml, rules out heart failure. > or = 450 pg/ml, further investigation warranted. - Knowledge of each individual patient's NT-proBNP range may be more useful than using similar cut-points for every patient. Please note that marked elevations in NT-proBNP levels may be observed in state other than Left Ventricular Congestive Failure, including: acute coronary syndromes, right heart strain/failure (including pulmonary embolism and cor pulmonale), critical illness, renal failure, as well as advanced age. - References: 1. Aida ASHFORD et.al. Eur Heart J. 2006:27:330-337. 2. Keith SILVERMAN, Chela MIRELES. J. AM Cortez Cardiol: Cardiovasc Imag. 2009;2: 216- 225. Interpretive Data Last Revised Date: 2018. Testing performed by: [address] [address] Blood 12/29/2024 5:57 AM CHANGE MANAGEMENT ANALYST 12/29/2024 6:47 AM CHANGE MANAGEMENT ANALYST us Rica Khan MEDIA ANALYST LAB BLOOD ORDERABLES Final Res ult [facility] [place] [address] * (ABNORMAL) Comprehensive metabolic panel (12/29/2024 5:57 AM CHANGE MANAGEMENT ANALYST) Sodium 128(L) 135 - 145 mmol/L Comment:Testing performed by : [address] [address] Potassium, pl 4.7 3.3 - 4.9 mmol/L [facility] LOYA Comment:Testing performed by : [address] [address] Chloride 94(L) 97 - 110 mmol/L [facility] LOYA Comment:Testing performed by : [address] [address] CO2 21(L) 22 - 32 mmol/L [facility] LOYA Comment:Testing performed by : [address] [address] Anion gap 13 2 - 15 mmol/L [facility] LOYA Comment:Testing performed by : [address] [address] BUN 84(H) 6 - 25 mg/dL [facility] LOYA Comment:Testing performed by : [address] [address] Creatinine 2.60(H) 0.60 - 1.10 mg/dL [facility] Comment:Testing performed by : [address] [address] Glucose 79 70 - 199 mg/dL [facility] Comment: Interpretive Data Fasting glucose >/= 126 mg/dl is diagnostic for diabetes. Fasting is defined as no caloric intake for at least 8 hours. Fasting glucose between 100 mg/dl to 125 mg/dl is diagnostic of prediabetes. In a patient with classic symptoms of hyperglycemia or hyperglycemic crisis, a random glucose >/= 200 mg/dl is diagnostic for diabetes. In the absence of unequivocal hyperglycemia, results should be confirmed by repeat testing. The classification and Diagnosis of Diabetes Diabetes Care 202; 46: S19-S40. Current interpretive data was last revised 2022. Testing performed by: [address] [address] Calcium 7.7(L) 8.5 - 10.3 mg/dL [facility] Comment:Testing performed by : [address] [address] Bilirubin, total 0.2 0.1 - 1.2 mg/dL [facility] Comment:Testing performed by : [address] [address] Protein, pl 5.5(L) 6.5 - 8.5 g/dL [facility] Comment:Testing performed by : [address] [address] Albumin 2.8(L) 3.5 - 5.0 g/dL [facility] Comment:Testing performed by : [address] [address] Alk phos 40 40 - 130 Units/L [facility] Comment:Testing performed by : [address] [address] ALT 7 7 - 45 Units/L [facility] Comment:Testing performed by : [address] [address] AST 14 10 - 45 Units/L [facility] Comment:Testing performed by : [place] [address], [place]., [address] Blood 12/29/2024 5:57 AM CHANGE MANAGEMENT ANALYST 12/29/2024 6:47 AM CHANGE MANAGEMENT ANALYST us Rica Khan MEDIA ANALYST LAB BLOOD ORDERABLES Final Res ult [facility] [address] [facility] [place] [address] * XR Shoulder Left 2 or More Views (12/28/2024 2:16 PM CHANGE MANAGEMENT ANALYST) Anatomical Region Laterality Modality Upper Extremities, Shoulder Left Comp uted Radiography 12/28/2024 4:38 PM CHANGE MANAGEMENT ANALYST Narrative 12/28/2024 4:41 PM CHANGE MANAGEMENT ANALYST EXAM DESCRIPTION: XR SHOULDER LEFT 2 OR MORE VIEWS REASON FOR STUDY: Severe left shoulder pain Pt unable to roll arm for internal or external position TECHNIQUE: There are 3 radiographic view(s) of the left shoulder . COMPARISON: No prior. FINDINGS: Normal mineralization. No acute fracture or dislocation. Trivial osteoarthritis glenohumeral joint and AC joint. Adjacent ribs and soft tissues are unremarkable. Prior median sternotomy. AICD overlies left chest. IMPRESSION: No acute fracture. Trivial osteoarthritis glenohumeral joint and AC joint. Mild limitation of the portable Y-view of the shoulder. If there is strong clinical concern of dislocation, axillary view could be obtained or CT. THIS IS AN ELECTRONICALLY VERIFIED FINAL REPORT 12/28/2024 4:41 PM - Electronically signed by Quinten Hemphill M.D. MJ: LEONEL Report ID: [id number] [place] Location: [id number] Procedure Note Quinten Hemphill MD - 12/28/2024 EXAM DESCRIPTION: XR SHOULDER LEFT 2 OR MORE VIEWS REASON FOR STUDY: Severe left shoulder pain Pt unable to roll arm for internal or external position TECHNIQUE: There are 3 radiographic view(s) of the left shoulder . COMPARISON: No prior. FINDINGS: Normal mineralization. No acute fracture or dislocation.Trivial osteoarthritis glenohumeral joint and AC joint. Adjacent ribs and soft tissues are unremarkable. Prior median sternotomy. AICD overlies left chest. IMPRESSION: No acute fracture. Trivial osteoarthritis glenohumeral joint and AC joint. Mild limitation of the portable Y-view of the shoulder. If there isstrong clinical concern of dislocation, axillary view could be obtained or CT. THIS IS AN ELECTRONICALLY VERIFIED FINAL REPORT 12/28/2024 4:41 PM - Electronically signed by Quinten Hemphill M.D. MJ: LEONEL Report ID: [id number] [place] Location: [id number] Marino Hernandez MD IMG XR PROCEDURES Final Result * (ABNORMAL) eGFR (12/28/2024 1:56 AM CHANGE MANAGEMENT ANALYST) eGFR 19(L) >=60 mL/min/1. 73 m2 Comment: Interpretive Data Reference Interval Normal >/= 90 mL/min/1.73m2 Mildly decreased* 60 - 89 mL/min/1.73m2 Mildly to moderately decreased 45 - 59 mL/min/1.73m2 Moderately to severely decreased 30 - 44 mL/min/1.73m2 Severely decreased 15 - 29 mL/min/1.73m2 Kidney Failure < 15 mL/min/1.73m2 *Relative to young adult level Estimated glomerular filtration rate is determined by the 2020 CKD-EPI equation recommended by the National Kidney Foundation (A Unifying Approach to GFR Estimation: Recommendations of the NKF-ASK Task Force on Reassessing the Inclusion of Race in Diagnosing Kidney Disease, JASN 202). The CKD-EPI equation should not be used for patients with unstable renal function and has not been validated in children and those over 70. Current interpretive data was last reviewed 2021. Testing performed by: [facility], [address] [place] [address], [place]., [address] Blood 12/28/2024 1:56 AM CHANGE MANAGEMENT ANALYST 12/28/2024 3:47 AM CHANGE MANAGEMENT ANALYST us Rica Khan MEDIA ANALYST LAB BLOOD ORDERABLES Final Res ult [facility] [address] [facility] [place] [address] * (ABNORMAL) Pro B-type natriuretic peptide (12/28/2024 1:56 AM CHANGE MANAGEMENT ANALYST) NT-proBNP 19,665(H) <=450 pg/mL Comment: Interpretive Comments: A. Dyspnea in Acute Care Setting All Ages: < 300 pg/ml, acute heart failure unlikely. < 50 yrs: 300 - 450 pg/ml, further investigation warranted. > 450 pg/ml, acute heart failure likely. 50 - 74 yrs: 300 - 900 pg/ml, further investigation warranted. > 900 pg/ml, acute heart failure likely . > or = 75 yrs: 450 - 1800 pg/ml, further investigation warranted. > 1800 pg/ml, acute heart failure likely. B. Non-acute Setting < 75 yrs < 125 pg/ml, rules out heart failure. > or = 125 pg/ml, further investigation warranted. > or = 75 yrs < 450 pg/ml, rules out heart failure. > or = 450 pg/ml, further investigation warranted. - Knowledge of each individual patient's NT-proBNP range may be more useful than using similar cut-points for every patient. Please note that marked elevations in NT-proBNP levels may be observed in state other than Left Ventricular Congestive Failure, including: acute coronary syndromes, right heart strain/failure (including pulmonary embolism and cor pulmonale), critical illness, renal failure, as well as advanced age. - References: 1. Aida ASHFORD et.al. Eur Heart J. 2006:27:330-337. 2. Keith RW, Chela MIRELES. J. AM Cortez Cardiol: Cardiovasc Imag. 2009;2: 216- 225. Interpretive Data Last Revised Date: 2018. Testing performed by: [facility], [address] [place] [address]., [address] Blood 12/28/2024 1:56 AM CHANGE MANAGEMENT ANALYST 12/28/2024 3:47 AM CHANGE MANAGEMENT ANALYST us Rica Khan MEDIA ANALYST LAB BLOOD ORDERABLES Final Res ult [facility] [facility] [place] [address] * (ABNORMAL) Comprehensive metabolic panel (12/28/2024 1:56 AM CHANGE MANAGEMENT ANALYST) Sodium 124(L) 135 - 145 mmol/L Comment:Testing performed by : [address] [address] Potassium, pl 5.3(H) 3.3 - 4.9 mmol/L [facility] Comment:Testing performed by : [address] [address] Chloride 94(L) 97 - 110 mmol/L [facility] Comment:Testing performed by : [address] [address] CO2 20(L) 22 - 32 mmol/L [facility] Comment:Testing performed by : [address] [address] Anion gap 10 2 - 15 mmol/L [facility] Comment:Testing performed by : [address] [address] BUN 87(H) 6 - 25 mg/dL [facility] Comment:Testing performed by : [address] [address] Creatinine 2.56(H) 0.60 - 1.10 mg/dL [facility] Comment:Testing performed by : [address] [address] Glucose 112 70 - 199 mg/dL [facility] Comment: Interpretive Data Fasting glucose >/= 126 mg/dl is diagnostic for diabetes. Fasting is defined as no caloric intake for at least 8 hours. Fasting glucose between 100 mg/dl to 125 mg/dl is diagnostic of prediabetes. In a patient with classic symptoms of hyperglycemia or hyperglycemic crisis, a random glucose >/= 200 mg/dl is diagnostic for diabetes. In the absence of unequivocal hyperglycemia, results should be confirmed by repeat testing. The classification and Diagnosis of Diabetes Diabetes Care 202; 46: S19-S40. Current interpretive data was last revised 2022. Testing performed by: [address] [address] Calcium 8.0(L) 8.5 - 10.3 mg/dL [facility] Comment:Testing performed by : [address] [address] Bilirubin, total 0.2 0.1 - 1.2 mg/dL [facility] Comment:Testing performed by : [address] [address] Protein, pl 5.6(L) 6.5 - 8.5 g/dL [facility] Comment:Testing performed by : [address] [address] Albumin 2.9(L) 3.5 - 5.0 g/dL [facility] Comment:Testing performed by : [address], [address] Alk phos 44 40 - 130 Units/L [facility] Comment:Testing performed by : [address], [address] ALT 7 7 - 45 Units/L [facility] Comment:Testing performed by : [address], [address] AST 16 10 - 45 Units/L [facility] Comment:Testing performed by : [address] [address] Blood 12/28/2024 1:56 AM CHANGE MANAGEMENT ANALYST 12/28/2024 3:47 AM CHANGE MANAGEMENT ANALYST us Rica Khan MEDIA ANALYST LAB BLOOD ORDERABLES Final Res ult [facility] [address] [facility] [place] [address] * TRANSTHORACIC ECHO (TTE) COMPLETE W DOPPLER/CF WO CONTRAST (12/27/2024 9:06 AM CHANGE MANAGEMENT ANALYST) LV EF 55-60 % CONS SCIMAGE Anatomical Region Laterality Modality Ultrasound 12/27/2024 8:25 AM CHANGE MANAGEMENT ANALYST Narrative 12/27/2024 5:51 PM CHANGE MANAGEMENT ANALYST Transthoracic Echocardiographic Report Patient Name: NEGRITA LINCOLN C : 1950 (74y 1m) Gender: F Study Date: 12/27/2024 08:25:07 AM Ht(Inch): 64 Wt(Lb): 170 BSA: 1.87 Senior Systems Administrator: Adrianna Quintanilla RDCS Location: [place] [address] Order Provider: MAYDA ESCOBAR Heart Rate: 68 BMI: 29.18 BP: 133 / 90 Ref Provider: MAYDA ESCOBAR PROCEDURES: Echocardiographic Report: ([id number]) Transthoracic complete echo, 2D, spectral and tissue Doppler, color flow Doppler, M-mode. INDICATIONS: Fluid Volume Disorder. FINDINGS: Left Ventricle: Moderately dilated left ventricle cavity. Normal Left ventricular wall thickness. Normal left ventricular systolic function. The Ejection Fraction is visually estimated to be 55-60 %. Diastolic Function Left ventricular diastolic function is normal, mitral inflow pattern is Normal and E to E' ration is >15 suggesting a high pulminary wedge pressure and LV diastolic dysfunction. Regional Wall Motion: There are no regional wall motion abnormalities. Right Ventricle: Normal right ventricular size. Normal right ventricular systolic function. Wire noted in the right heart. Left Atrium: Mildly dilated left atrium. Right Atrium: The right atrium is normal in size. Right atrial catheter noted. Atrial Septum: No shunt by color Doppler. Mitral Valve: Normal mitral valve leaflet structure. There is severe mitral regurgitation. No mitral valve stenosis. The mitral valve area by pressure half- time is 3.7 cm2. NO mitral valve prolapse seen. Aortic Valve: Trileaflet aortic valve. Trace aortic valve regurgitation. Mild aortic valve stenosis. The mean transaortic gradient is 8 mmHg. The aortic valve area by the continuity equation (using Peak Luis) is 1.88 cm2. Tricuspid Valve: The tricuspid valve demonstrates normal leaflet structure. There is severe tricuspid regurgitation. The estimated right ventricular systolic pressure is 55 mmHg. Estimated pulmonary artery systolic pressure is consistent with moderate pulmonary hypertension (45-60mmHg). No tricuspid valve stenosis. Pulmonic Valve: The Pulmonic Valve is grossly normal. There is mild pulmonic regurgitation. Pericardium: No pericardial effusion. Aorta: Normal aortic root. The aortic sinus is normal in size. The ascending aorta is normal in size. IVC: IVC is normal in size. The estimated RA pressure is 8 mmHg. CONCLUSIONS: 1. Normal left ventricular systolic function. The Ejection Fraction is visually estimated to be 55-60 %. Diastolic Function Left ventricular diastolic function is normal, mitral inflow pattern is Normal and E to E' ration is >15 suggesting a high pulminary wedge pressure and LV diastolic dysfunction. 2. Wire noted in the right heart. 3. Mildly dilated left atrium. 4. There is severe mitral regurgitation. 5. Trace aortic valve regurgitation. Mild aortic valve stenosis. 6. There is mild pulmonic regurgitation. 7. There is severe tricuspid regurgitation. The estimated right ventricular systolic pressure is 55 mmHg. MEASUREMENTS: 2D/MM Value Range Doppler Value LVIDd 2D 6.46 cm [ 3.50 - 5.70 ] AV Peak Luis 1.94 m/s LVIDs 2D 4.96 cm [ 3.10 - 4.60 ] AV Peak PG 15.05 mmHg IVSd 2D 1.05 cm [ 0.60 - 1.20 ] AV Mean PG 8.00 mmHg LVPWd 2D 0.96 cm [ 0.60 - 1.10 ] AV VTI 46.20 cm LV Thickness Ratio 1.09 LVOT Peak Luis 1.16 m/s LV Mass 2D 290.49 g LVOT Peak PG 5.38 mmHg LV Mass Index 2D 155.34 g/m2 LVOT Mean PG 3.00 mmHg RWT 0.30 LVOT VTI 29.40 cm Visually Estimated EF 55-60 % LVOT Diam 2.00 cm LA Dimension 2D 4.90 cm [ 1.90 - 4.00 ] ALIZA VTI 2.00 cm2 IVC Diam 2.69 cm ALIZA Vmax 1.88 cm2 AoR Diam 2D 2.90 cm [ 2.00 - 3.70 ] LVOT/AV VTI 0.64 - Dimensionless index (DVI) Ao Root Index 1.55 cm/m2 [ 1.00 - 2.00 ] MV E Peak Luis 1.08 m/s MV A Peak Luis 0.88 m/s MV E/A 1.20 ratio MV PHT 60.00 ms MVA PHT 3.67 cm2 MV Decel Time 205.00 msec Med E` Luis 4.24 cm/sec Lat E` Luis 7.29 cm/sec Average E/E` 18.73 TV Peak Luis 1.08 m/s TV Peak PG 4.67 mmHg RV S` 12.80 cm/sec TR Peak Luis 3.44 m/s TR Peak PG 47.3 mmHg RA Pressure 8.00 mmHg RVSP 55.30 mmHg PV Peak Luis 1.50 m/s PV Peak PG 9.00 mmHg - ATTESTATION: I have reviewed and interpreted the pertinent images and measurements of this study. I attest to the conclusions in the final report that is provided above. DISCLAIMER: The study images and the final report will be retained in the patient chart by the Echo Laboratory for the legally required time period. This chart constitutes the legal record of any testing performed. Electronically Signed By: Henry Cardona MD 12/27/2024 5:50:03 PM CHANGE MANAGEMENT ANALYST Procedure Note Henry Cardona MD - 12/27/2024 Transthoracic Echocardiographic Report Patient Name: NEGRITA LINCOLN C : 1950 (74y 1m) Gender: F Study Date: 12/27/2024 08:25:07 AM Ht(Inch): 64 Wt(Lb): 170 BSA: 1.87 Senior Systems Administrator: Adrianna Quintanilla RDCS Location: [place] [address] Order Provider:MAYDA ESCOBAR Heart Rate: 68 BMI: 29.18 BP: 133 / 90 Ref Provider: MAYDA ESCOBAR PROCEDURES: Echocardiographic Report: ([id number]) Transthoracic complete echo, 2D,spectral and tissue Doppler, color flow Doppler, M-mode. INDICATIONS: Fluid Volume Disorder. FINDINGS: Left Ventricle: Moderately dilated left ventricle cavity. Normal Leftventricular wall thickness. Normal left ventricular systolic function. The EjectionFraction is visually estimated to be 55-60 %. Diastolic Function Left ventricular diastolicfunction is normal, mitral inflow pattern is Normal and E to E' ration is >15suggesting a high pulminary wedge pressure and LV diastolic dysfunction. Regional Wall Motion: There are no regional wall motion abnormalities. Right Ventricle: Normal right ventricular size. Normal right ventricularsystolic function. Wire noted in the right heart. Left Atrium: Mildly dilated left atrium. Right Atrium: The right atrium is normal in size. Right atrial catheternoted. Atrial Septum: No shunt by color Doppler. Mitral Valve: Normal mitral valve leaflet structure. There is severemitral regurgitation. No mitral valve stenosis. The mitral valve area by pressurehalf- time is 3.7 cm2. NO mitral valve prolapse seen. Aortic Valve: Trileaflet aortic valve. Trace aortic valve regurgitation.Mild aortic valve stenosis. The mean transaortic gradient is 8 mmHg. The aortic valvearea by the continuity equation (using Peak Luis) is 1.88 cm2. Tricuspid Valve: The tricuspid valve demonstrates normal leafletstructure. There is severe tricuspid regurgitation. The estimated right ventricular systolicpressure is 55 mmHg. Estimated pulmonary artery systolic pressure is consistent withmoderate pulmonary hypertension (45-60mmHg). No tricuspid valve stenosis. Pulmonic Valve: The Pulmonic Valve is grossly normal. There is mildpulmonic regurgitation. Pericardium: No pericardial effusion. Aorta: Normal aortic root. The aortic sinus is normal in size. Theascending aorta is normal in size. IVC: IVC is normal in size. The estimated RA pressure is 8 mmHg. CONCLUSIONS: 1. Normal left ventricular systolic function. The Ejection Fraction isvisually estimated to be 55-60 %. Diastolic Function Left ventricular diastolic function isnormal, mitral inflow pattern is Normal and E to E' ration is >15 suggesting a highpulminary wedge pressure and LV diastolic dysfunction. 2. Wire noted in the right heart. 3. Mildly dilated left atrium. 4. There is severe mitral regurgitation. 5. Trace aortic valve regurgitation. Mild aortic valve stenosis. 6. There is mild pulmonic regurgitation. 7. There is severe tricuspid regurgitation. The estimated rightventricular systolic pressure is 55 mmHg. MEASUREMENTS: 2D/MM Value Range DopplerValue LVIDd 2D 6.46 cm [ 3.50 - 5.70 ] AV Peak Vel1.94 m/s LVIDs 2D 4.96 cm [ 3.10 - 4.60 ] AV Peak PG15.05 mmHg IVSd 2D 1.05 cm [ 0.60 - 1.20 ] AV Mean PG8.00 mmHg LVPWd 2D 0.96 cm [ 0.60 - 1.10 ] AV VTI46.20 cm LV Thickness Ratio 1.09 LVOT Peak Vel1.16 m/s LV Mass 2D 290.49 g LVOT Peak PG5.38 mmHg LV Mass Index 2D 155.34 g/m2 LVOT Mean PG3.00 mmHg RWT 0.30 LVOT VTI29.40 cm Visually Estimated EF 55-60 % LVOT Diam2.00 cm LA Dimension 2D 4.90 cm [ 1.90 - 4.00 ] ALIZA VTI2.00 cm2 IVC Diam 2.69 cm ALIZA Vmax1.88 cm2 AoR Diam 2D 2.90 cm [ 2.00 - 3.70 ] LVOT/AV VTI0.64 - Dimensionless index (DVI) Ao Root Index 1.55 cm/m2 [ 1.00 - 2.00 ] MV E Peak Vel1.08 m/s MV A Peak Luis 0.88 m/s MV E/A 1.20 ratio MV PHT 60.00 ms MVA PHT 3.67 cm2 MV Decel Time 205.00 msec Med E` Luis 4.24 cm/sec Lat E` Luis 7.29 cm/sec Average E/E` 18.73 TV Peak Luis 1.08 m/s TV Peak PG 4.67 mmHg RV S` 12.80 cm/sec TR Peak Luis 3.44 m/s TR Peak PG 47.3 mmHg RA Pressure 8.00 mmHg RVSP 55.30 mmHg PV Peak Luis 1.50 m/s PV Peak PG 9.00 mmHg - ATTESTATION: I have reviewed and interpreted the pertinent images and measurements ofthis study. I attest to the conclusions in the final report that is provided above. DISCLAIMER: The study images and the final report will be retained in the patientchart by the Echo Laboratory for the legally required time period. This chart constitutesthe legal record of any testing performed. Electronically Signed By: Henry Cardona MD 12/27/2024 5:50:03 PM CHANGE MANAGEMENT ANALYST us Mayda Escobar NP CV ECHO PROCEDURES Final Res ult * (ABNORMAL) eGFR (12/27/2024 6:44 AM CHANGE MANAGEMENT ANALYST) eGFR 20(L) >=60 mL/min/1. 73 m2 Comment: Interpretive Data Reference Interval Normal >/= 90 mL/min/1.73m2 Mildly decreased* 60 - 89 mL/min/1.73m2 Mildly to moderately decreased 45 - 59 mL/min/1.73m2 Moderately to severely decreased 30 - 44 mL/min/1.73m2 Severely decreased 15 - 29 mL/min/1.73m2 Kidney Failure < 15 mL/min/1.73m2 *Relative to young adult level Estimated glomerular filtration rate is determined by the 2020 CKD-EPI equation recommended by the National Kidney Foundation (A Unifying Approach to GFR Estimation: Recommendations of the NKF-ASK Task Force on Reassessing the Inclusion of Race in Diagnosing Kidney Disease, JASN 202). The CKD-EPI equation should not be used for patients with unstable renal function and has not been validated in children and those over 70. Current interpretive data was last reviewed 2021. Testing performed by: [facility], [address] [place] [address]., [address] Blood 12/27/2024 6:44 AM CHANGE MANAGEMENT ANALYST 12/27/2024 7:26 AM CHANGE MANAGEMENT ANALYST us Mayda Escobar MEDIA ANALYST LAB BLOOD ORDERABLES Final R esult [facility] [address] [facility] [place] [address] * (ABNORMAL) Basic metabolic panel (12/27/2024 6:44 AM CHANGE MANAGEMENT ANALYST) Sodium 124(L) 135 - 145 mmol/L Comment:Testing performed by : [address] [address] Potassium, pl 5.1(H) 3.3 - 4.9 mmol/L [facility] Comment:Testing performed by : [address] [address] Chloride 93(L) 97 - 110 mmol/L [facility] Comment:Testing performed by : [address] [address] CO2 20(L) 22 - 32 mmol/L [facility] Comment:Testing performed by : [address] [address] Anion gap 11 2 - 15 mmol/L [facility] Comment:Testing performed by : [address] [address] BUN 84(H) 6 - 25 mg/dL [facility] Comment:Testing performed by : [address] [address] Creatinine 2.50(H) 0.60 - 1.10 mg/dL [facility] Comment:Testing performed by : [address] [address] Glucose 115 70 - 199 mg/dL [facility] Comment: Interpretive Data Fasting glucose >/= 126 mg/dl is diagnostic for diabetes. Fasting is defined as no caloric intake for at least 8 hours. Fasting glucose between 100 mg/dl to 125 mg/dl is diagnostic of prediabetes. In a patient with classic symptoms of hyperglycemia or hyperglycemic crisis, a random glucose >/= 200 mg/dl is diagnostic for diabetes. In the absence of unequivocal hyperglycemia, results should be confirmed by repeat testing. The classification and Diagnosis of Diabetes Diabetes Care 2021; 46: S19-S40. Current interpretive data was last revised 2022. Testing performed by: [facility], [address] [place] [address]., [address] Calcium 8.4(L) 8.5 - 10.3 mg/dL [facility] LOYA Comment:Testing performed by : [facility], [address] [place] [address]., [address] Blood 12/27/2024 6:44 AM CHANGE MANAGEMENT ANALYST 12/27/2024 7:26 AM CHANGE MANAGEMENT ANALYST us Mayda Escobar MEDIA ANALYST LAB BLOOD ORDERABLES Final R esult [facility] LOYA [address] [facility] [place] [address] * (ABNORMAL) eGFR (12/27/2024 6:42 AM CHANGE MANAGEMENT ANALYST) eGFR 20(L) >=60 mL/min/1. 73 m2 Comment: Interpretive Data Reference Interval Normal >/= 90 mL/min/1.73m2 Mildly decreased* 60 - 89 mL/min/1.73m2 Mildly to moderately decreased 45 - 59 mL/min/1.73m2 Moderately to severely decreased 30 - 44 mL/min/1.73m2 Severely decreased 15 - 29 mL/min/1.73m2 Kidney Failure < 15 mL/min/1.73m2 *Relative to young adult level Estimated glomerular filtration rate is determined by the 2020 CKD-EPI equation recommended by the National Kidney Foundation (A Unifying Approach to GFR Estimation: Recommendations of the NKF-ASK Task Force on Reassessing the Inclusion of Race in Diagnosing Kidney Disease, JASN 2020). The CKD-EPI equation should not be used for patients with unstable renal function and has not been validated in children and those over 70. Current interpretive data was last reviewed 2021. Testing performed by: [facility], [address] [place] [address]., [address] Blood 12/27/2024 6:42 AM CHANGE MANAGEMENT ANALYST 12/27/2024 7:26 AM CHANGE MANAGEMENT ANALYST us Mayda Escobar NP LAB BLOOD ORDERABLES Final R esult [facility] [address] [facility] Department of Laboratories [place], [place] [id number] * (ABNORMAL) Basic metabolic panel (12/27/2024 6:42 AM CHANGE MANAGEMENT ANALYST) Sodium 125(L) 135 - 145 mmol/L Comment:Testing performed by : [address] [address] Potassium, pl 5.0(H) 3.3 - 4.9 mmol/L [facility] Comment:Testing performed by : [address] [address] Chloride 94(L) 97 - 110 mmol/L [facility] Comment:Testing performed by : [address] [address] CO2 20(L) 22 - 32 mmol/L [facility] Comment:Testing performed by : [address] [address] Anion gap 11 2 - 15 mmol/L [facility] Comment:Testing performed by : [address] [address] BUN 84(H) 6 - 25 mg/dL [facility] Comment:Testing performed by : [address] [address] Creatinine 2.50(H) 0.60 - 1.10 mg/dL [facility] Comment:Testing performed by : [address] [address] Glucose 115 70 - 199 mg/dL [facility] Comment: Interpretive Data Fasting glucose >/= 126 mg/dl is diagnostic for diabetes. Fasting is defined as no caloric intake for at least 8 hours. Fasting glucose between 100 mg/dl to 125 mg/dl is diagnostic of prediabetes. In a patient with classic symptoms of hyperglycemia or hyperglycemic crisis, a random glucose >/= 200 mg/dl is diagnostic for diabetes. In the absence of unequivocal hyperglycemia, results should be confirmed by repeat testing. The classification and Diagnosis of Diabetes Diabetes Care 202; 46: S19-S40. Current interpretive data was last revised 2022. Testing performed by: [facility], [address] [place] [address]., [address] Calcium 8.5 8.5 - 10.3 mg/dL [facility] Comment:Testing performed by : [facility], [address] [place] [address]., [address] Blood 12/27/2024 6:42 AM CHANGE MANAGEMENT ANALYST 12/27/2024 7:26 AM CHANGE MANAGEMENT ANALYST Mayda Escobar MEDIA ANALYST LAB BLOOD ORDERABLES Final R esult Performing Organization Address [facility] Co de Phone Number [address] [address] * Sodium, urine, random (12/27/2024 6:29 AM CHANGE MANAGEMENT ANALYST) Sodium, ur 58 mmol/L Comment: Interpretive Data No reference range established. Current interpretive data was last revised 2019. Urine 12/27/2024 6:29 AM CHANGE MANAGEMENT ANALYST 12/27/2024 8:25 AM CHANGE MANAGEMENT ANALYST aMyda Escobar MEDIA ANALYST LAB URINE ORDERABLES Final R esult Performing Organization Address [facility] Co de Phone Number [address] [place] [address] * (ABNORMAL) Osmolality, urine (12/27/2024 6:29 AM CHANGE MANAGEMENT ANALYST) Osmo, ur 276(L) 300 - 800 mOsm/kg Urine 12/27/2024 6:29 AM CHANGE MANAGEMENT ANALYST 12/27/2024 8:31 AM CHANGE MANAGEMENT ANALYST Mayda Escobar MEDIA ANALYST LAB URINE ORDERABLES Final R esult Performing Organization Address [facility] Co de Phone Number [address] [place] [address] * (ABNORMAL) eGFR (12/27/2024 5:24 AM CHANGE MANAGEMENT ANALYST) eGFR 20(L) >=60 mL/min/1. 73 m2 Comment: Interpretive Data Reference Interval Normal >/= 90 mL/min/1.73m2 Mildly decreased* 60 - 89 mL/min/1.73m2 Mildly to moderately decreased 45 - 59 mL/min/1.73m2 Moderately to severely decreased 30 - 44 mL/min/1.73m2 Severely decreased 15 - 29 mL/min/1.73m2 Kidney Failure < 15 mL/min/1.73m2 *Relative to young adult level Estimated glomerular filtration rate is determined by the 2020 CKD-EPI equation recommended by the National Kidney Foundation (A Unifying Approach to GFR Estimation: Recommendations of the NKF-ASK Task Force on Reassessing the Inclusion of Race in Diagnosing Kidney Disease, JASN 2020). The CKD-EPI equation should not be used for patients with unstable renal function and has not been validated in children and those over 70. Current interpretive data was last reviewed 2021. Testing performed by: [address] [address] Blood 12/27/2024 5:24 AM CHANGE MANAGEMENT ANALYST 12/27/2024 6:55 AM CHANGE MANAGEMENT ANALYST Mayda Escobar MEDIA ANALYST LAB BLOOD ORDERABLES Final R esult Performing Organization Address [facility] Co de Phone Number [place] [phone] [facility] [place] [address] * Thyroid Function [place] (12/27/2024 5:24 AM CHANGE MANAGEMENT ANALYST) Pathologist [facility] TSH 3.36 0.30 - 4.20 mcIUnit/mL Comment:Testing performed by : [address] [address] Blood 12/27/2024 5:24 AM CHANGE MANAGEMENT ANALYST 12/27/2024 6:55 AM CHANGE MANAGEMENT ANALYST Mayda Escobar MEDIA ANALYST LAB BLOOD ORDERABLES Final R esult CERNER [address] [address] * (ABNORMAL) Phosphorus (12/27/2024 5:24 AM CHANGE MANAGEMENT ANALYST) Pathologist [facility] Phosphorus, pl 5.1(H) 2.3 - 4.5 mg/dL Comment:Testing performed by : [address] [address] Blood 12/27/2024 5:24 AM CHANGE MANAGEMENT ANALYST 12/27/2024 6:55 AM CHANGE MANAGEMENT ANALYST Mayda Escobar MEDIA ANALYST LAB BLOOD ORDERABLES Final R esult Performing Organization Address City/[facility]/ZIP Co de Phone Number [address] [address] * Osmolality, blood (12/27/2024 5:24 AM CHANGE MANAGEMENT ANALYST) [facility] Osmo 294 275 - 295 mOsm/kg Blood 12/27/2024 5:24 AM CHANGE MANAGEMENT ANALYST 12/27/2024 8:25 AM CHANGE MANAGEMENT ANALYST Mayda Escobar MEDIA ANALYST LAB BLOOD ORDERABLES Final R esult Performing Organization Address [facility] Co de Phone Number [address] [address] * Magnesium (12/27/2024 5:24 AM CHANGE MANAGEMENT ANALYST) [facility] Magnesium 2.0 1.4 - 2.5 mg/dL Comment:Testing performed by : [address] [address] Blood 12/27/2024 5:24 AM CHANGE MANAGEMENT ANALYST 12/27/2024 6:55 AM CHANGE MANAGEMENT ANALYST Mayda Escobar MEDIA ANALYST LAB BLOOD ORDERABLES Final R esult Performing Organization Address City/[facility] Co de Phone Number [address] [address] * Lipid panel (12/27/2024 5:24 AM CHANGE MANAGEMENT ANALYST) Cholesterol 109 30 - 199 mg/dL Comment: Interpretive Data Ages < or = 19 years Acceptable: <170 mg/dL Borderline high: 170-199 mg/dL High: >or= 200 mg/dL Ages > or = 20 years Desirable: <200 mg/dL Borderline high: 200-239 mg/dL High: >or= 240 mg/dL Literature References: 1. Expert Panel on Integrated Guidelines for Cardiovascular Health and Risk Reduction in Children and Adolescents. Pediatrics 2011;128:S213 2. NCEP Expert Panel. Circulation 2004;110:227 Current Interpretive Data was last revised on 2018. Testing performed by: [address] [address] Triglycerides 64 <=149 mg/dL [facility] Comment: Interpretive Data Ages < or = 9 years Acceptable: <75 mg/dL Borderline high: 75-99 mg/dL High: >or= 100 mg/dL Ages 10 to 20 years Acceptable: <90 mg/dL Borderline high: 90-129 mg/dL High: >or= 130 mg/dL Ages > or = 20 years Desirable: <150 mg/dL Borderline high: 150-199 mg/dL High: 200-499 mg/dL Very high: >or= 499 mg/dL Literature References: 1. Expert Panel on Integrated Guidelines for Cardiovascular Health and Risk Reduction in Children and Adolescents. Pediatrics 2011;128:S213 2. NCEP Expert Panel. Circulation 2004;110:227 Current Interpretive Data was last revised on 2018. Testing performed by: [address] [address] HDL 54 >=40 mg/dL [facility] Comment: Interpretive Data Ages < or = 19 years Acceptable: >45 mg/dL Borderline low: 40-45 mg/dL Low: <40 mg/dL Ages > or = 20 years Desirable: >or= 60 mg/dL Low: <40 mg/dL Literature References: 1. Expert Panel on Integrated Guidelines for Cardiovascular Health and Risk Reduction in Children and Adolescents. Pediatrics 2011;128:S213 2. NCEP Expert Panel. Circulation 2004;110:227 Current Interpretive Data was last revised on 2018. Testing performed by: [address] [address] LDL, calculated 41 <=129 mg/dL [facility] LOYA Comment: Interpretive Data Ages < or = 19 years Acceptable: <110 mg/dL Borderline high: 110-129 mg/dL High: >or= 130 mg/dL Ages > or = 20 years Optimal: <100 mg/dL Near optimal: 100-129 mg/dL Borderline high: 130-159 mg/dL High: >160 mg/dL Calculated using the J Luis LDL-C estimating equation. This equation was implemented on 2024. Prior to this date LDL-C was estimated using the Friedewald equation. Literature References: 1. Expert Panel on Integrated Guidelines for Cardiovascular Health and Risk Reduction in Children and Adolescents. Pediatrics 2011;128:S213 2. NCEP Expert Panel. Circulation 2004;110:227 3. J Luis Rose et al. CHINEDU Cardiol. 2020 March 06;5(5):540-548. doi: 10.1001/jamacardio.2020.0013 Current Interpretive Data was last revised on 2024. Testing performed by: [address] [address] Non-HDL Cholesterol 55 mg/dL [facility] LOYA Comment: Interpretive Data Ages < or = 19 years Acceptable: <120 mg/dL Borderline high: 120-144 mg/dL High: >145 mg/dL Ages > or = 20 years When triglycerides are >200 mg/dL, Non-HDL cholesterol is a secondary target of therapy with treatment goals that are 30 mg/dL greater than the LDL cholesterol target. Literature References: 1. Expert Panel on Integrated Guidelines for Cardiovascular Health and Risk Reduction in Children and Adolescents. Pediatrics 2011;128:S213 2. NCEP Expert Panel. Circulation 2004;110:227 Current Interpretive Data was last revised on 2018. Testing performed by: [address] [address] Chol/HDL ratio 2 [facility] LOYA Comment:Testing performed by : [address] [address] Blood 12/27/2024 5:24 AM CHANGE MANAGEMENT ANALYST 12/27/2024 6:55 AM CHANGE MANAGEMENT ANALYST us Mayda Escobar NP LAB BLOOD ORDERABLES Final R esult [facility] [address] [facility] Department of Laboratories [place], [place] [id number] * (ABNORMAL) Comprehensive metabolic panel (12/27/2024 5:24 AM CHANGE MANAGEMENT ANALYST) Sodium 125(L) 135 - 145 mmol/L Comment:Testing performed by : [address] [address] Potassium, pl 5.2(H) 3.3 - 4.9 mmol/L [facility] Comment:Testing performed by : [address] [address] Chloride 94(L) 97 - 110 mmol/L [facility] Comment:Testing performed by : [address] [address] CO2 20(L) 22 - 32 mmol/L [facility] Comment:Testing performed by : [address] [address] Anion gap 11 2 - 15 mmol/L [facility] Comment:Testing performed by : [address] [address] BUN 84(H) 6 - 25 mg/dL [facility] Comment:Testing performed by : [address] [address] Creatinine 2.50(H) 0.60 - 1.10 mg/dL [facility] Comment:Testing performed by : [address] [address] Glucose 121 70 - 199 mg/dL [facility] Comment: Interpretive Data Fasting glucose >/= 126 mg/dl is diagnostic for diabetes. Fasting is defined as no caloric intake for at least 8 hours. Fasting glucose between 100 mg/dl to 125 mg/dl is diagnostic of prediabetes. In a patient with classic symptoms of hyperglycemia or hyperglycemic crisis, a random glucose >/= 200 mg/dl is diagnostic for diabetes. In the absence of unequivocal hyperglycemia, results should be confirmed by repeat testing. The classification and Diagnosis of Diabetes Diabetes Care 202; 46: S19-S40. Current interpretive data was last revised 2022. Testing performed by: [facility], [address] [place] [address]., [address] Calcium 8.4(L) 8.5 - 10.3 mg/dL [facility] Comment:Testing performed by : [address] [address] Bilirubin, total 0.2 0.1 - 1.2 mg/dL [facility] Comment:Testing performed by : [address] [address] Protein, pl 5.8(L) 6.5 - 8.5 g/dL [facility] Comment:Testing performed by : [address] [address] Albumin 3.0(L) 3.5 - 5.0 g/dL [facility] Comment:Testing performed by : [address], [address] Alk phos 46 40 - 130 Units/L [facility] Comment:Testing performed by : [address] [address] ALT 6(L) 7 - 45 Units/L [facility] Comment:Testing performed by : [address] [address] AST 13 10 - 45 Units/L [facility] Comment:Testing performed by : [address] [address] Blood 12/27/2024 5:24 AM CHANGE MANAGEMENT ANALYST 12/27/2024 6:55 AM CHANGE MANAGEMENT ANALYST us Mayda Escobar NP LAB BLOOD ORDERABLES Final R esult [facility] LO[facility] [address] [facility] [place] [address] * US Thyroid (12/26/2024 10:19 PM CHANGE MANAGEMENT ANALYST) Anatomical Region Laterality Modality Head and Neck N/A Ultrasound 12/27/2024 3:31 AM CHANGE MANAGEMENT ANALYST Narrative 12/27/2024 3:44 AM CHANGE MANAGEMENT ANALYST EXAM DESCRIPTION: US THYROID REASON FOR STUDY: Thyroid nodule, incidental, >= 1.5cm, risk factors (Age => 34y) TECHNIQUE: A Dynamic assessment of the thyroid was performed by the .net architect with selected grayscale and color Doppler images acquired and recorded in PACS. COMPARISON: Relevant images from CT of the chest of December 26, 2024. FINDINGS: RIGHT: The right thyroid lobe measures 4.8 x 1.8 x 1.5 cm. There are multiple nodules seen in the right lobe of the thyroid. The first nodule is a cystic and solid nodule in the superior pole , measuring 1.3 x 1.1 x 1.1 cm. This nodule is hypoechoic in its solid portions with ill-defined margins and no calcifications (TI-RADS 3 ). The second nodule is a mixed cystic and solid nodule in the inferior pole , measuring 2 x 1.6 x 1.4 cm. This nodule is hypoechoic in its solid portions with ill-defined margins and no calcifications (TI-RADS 3 ). The right thyroid parenchyma is heterogeneous in echotexture. LEFT: The left thyroid lobe measures 5.9 x 2 x 1.7 cm. There is a single cystic and solid nodule in the midportion , measuring 2.7 x 1.9 x 1.5 cm. This nodule is isoechoic in its solid portions with ill-defined margins and punctate echogenic foci (TI-RADS 4 ). The left thyroid parenchyma is heterogeneous in echotexture. ISTHMUS: The isthmus measures 4 mm in AP dimension. The isthmus is normal in echotexture. VASCULARITY: Normal. LYMPH NODES: There are no enlarged lymph nodes by size criteria. OTHER: No other significant finding. IMPRESSION: 2.7 cm left TI-RADS 4 nodule. Recommend follow-up FNA. 2 cm right TI-RADS 3 nodule. Recommend follow-up thyroid ultrasound in 1 year to ensure stability. 1.3 cm right TI-RADS 3 nodule. No FNA or follow-up required. REFERENCE: According to the ACR guidelines,* recommendations regarding the management of thyroid nodules are as follows: 1. TI-RADS 1: Risk of malignancy <2%, no FNA or follow up required. 2. TI-RADS 2: Risk of malignancy <2%, no FNA or follow up required. 3. TI-RADS 3: Risk of malignancy 2%-5%. Nodules 1.5 cm or greater follow up at 1, 3 and 5 years recommended, for nodules 2.5 cm or greater FNA recommended. 4. TI-RADS 4: Risk of malignancy 5%-20% Nodules 1.0 cm or greater follow up at 1, 2, 3 and 5 years recommended, for nodules 1.5 cm or greater FNA recommended 5. TI-RADS 5: Risk of malignancy >20%. Nodules 0.5 cm or greater annual follow up for 5 years recommended, for nodules 1.0 cm or greater FNA recommended. The ACR TI-RADS committee recommends targeting no more than two nodules for FNA. If three or more nodules meet criteria for FNA, the two with the most suspicious appearance based on ACR TI-RADS points should be sampled. *khadar Bryant al. (March 2017) ACR Thyroid Imaging, Reporting and Data System (TI-RADS): White Paper of the ACR TI-RADS Committee. Journal of the [place] [employer], 14(5), 587-595. http://dx.doi.org/10.1016/j.jacr.2017.01.046 THIS IS AN ELECTRONICALLY VERIFIED FINAL REPORT 12/27/2024 3:44 AM - Electronically signed by Amy Hayes M.D. SN: SN Report ID: [id number] Reading Location: [place] [address] Procedure Note Amy Hayes MD - 12/27/2024 EXAM DESCRIPTION: US THYROID REASON FOR STUDY: Thyroid nodule, incidental, >= 1.5cm, risk factors(Age => 34y) TECHNIQUE: A Dynamic assessment of the thyroid was performed by the .net architect with selected grayscale and color Doppler images acquired and recorded in PACS. COMPARISON: Relevant images from CT of the chest of December 26, 2024. FINDINGS: RIGHT: The right thyroid lobe measures 4.8 x 1.8 x 1.5 cm.There are multiple nodules seen in the right lobe of the thyroid. The first nodule is a cystic and solid nodule in the superior pole , measuring1.3 x 1.1 x 1.1 cm. This nodule is hypoechoic in its solid portions with ill-defined margins and no calcifications (TI-RADS 3 ). The second nodule is a mixed cystic and solid nodule in the inferior pole ,measuring 2 x 1.6 x 1.4 cm. This nodule is hypoechoic in its solid portions with ill-defined margins and no calcifications (TI-RADS 3 ). The right thyroid parenchyma is heterogeneous in echotexture. LEFT: The left thyroid lobe measures 5.9 x 2 x 1.7 cm. There is asingle cystic and solid nodule in the midportion , measuring 2.7 x 1.9 x 1.5cm. This nodule is isoechoic in its solid portions with ill-definedmargins and punctate echogenic foci (TI-RADS 4 ). The left thyroid parenchymais heterogeneous in echotexture. ISTHMUS: The isthmus measures 4 mm in AP dimension. The isthmus isnormal in echotexture. VASCULARITY: Normal. LYMPH NODES: There are no enlarged lymph nodes by size criteria. OTHER: No other significant finding. IMPRESSION: 2.7 cm left TI-RADS 4 nodule. Recommend follow-up FNA. 2 cm right TI-RADS 3 nodule. Recommend follow-up thyroid ultrasound in 1year to ensure stability. 1.3 cm right TI-RADS 3 nodule. No FNA or follow-up required. REFERENCE: According to the ACR guidelines,* recommendations regarding the management of thyroid nodules are as follows: 1. TI-RADS 1: Risk of malignancy <2%, no FNA or follow up required. 2. TI-RADS 2: Risk of malignancy <2%, no FNA or follow up required. 3. TI-RADS 3: Risk of malignancy 2%-5%. Nodules 1.5 cm or greater followup at 1, 3 and 5 years recommended, for nodules 2.5 cm or greater FNArecommended. 4. TI-RADS 4: Risk of malignancy 5%-20% Nodules 1.0 cm or greater followup at 1, 2, 3 and 5 years recommended, for nodules 1.5 cm or greater FNA recommended 5. TI-RADS 5: Risk of malignancy >20%. Nodules 0.5 cm or greater annual follow up for 5 years recommended, for nodules 1.0 cm or greater FNA recommended. The ACR TI-RADS committee recommends targeting no more than two nodulesfor FNA. If three or more nodules meet criteria for FNA, the two with themost suspicious appearance based on ACR TI-RADS points should be sampled. *khadar Bryant al. (March 2017) ACR Thyroid Imaging, Reporting and Data System (TI-RADS): White Paper of the ACR TI-RADS Committee. Journal of theAmerican College of Radiology, 14(5), 587-595. http://dx.doi.org/10.1016/j.jacr.2017.01.046 THIS IS AN ELECTRONICALLY VERIFIED FINAL REPORT 12/27/2024 3:44 AM - Electronically signed by mAy Hayes M.D. SN: SN Report ID: [id number] Reading Location: [place] [address] us Mayda Escobar NP IMG US PROCEDURES Final Resu lt * (ABNORMAL) Troponin T high-sensitivity 6-hour (12/26/2024 6:16 PM CHANGE MANAGEMENT ANALYST) Trop T hs 33(H) <=14 ng/L Comment: Interpretive Data For further hscTnT resources including the diagnostic algorithm and an aid in interpretation, copy and paste this link: https://nrl.testcatalog.org/show/hsTrop Current Interpretive Data last revised 2020. Testing performed by: [address] [address] Trop T hs delta -7 ng/L [facility] LOYA Comment:Testing performed by : [address] [address] Trop T hs interp Equivocal [facility] LOYA Comment:Testing performed by : [address] [address] Blood 12/26/2024 6:16 PM CHANGE MANAGEMENT ANALYST 12/26/2024 6:23 PM CHANGE MANAGEMENT ANALYST us Robbie Shearer DO LAB BLOOD ORDERABLES Final Result CERNER [address] [address] * Phosphorus (12/26/2024 6:16 PM CHANGE MANAGEMENT ANALYST) Pathologist [facility] Phosphorus, pl 4.5 2.3 - 4.5 mg/dL Comment:Testing performed by : [address] [address] Blood 12/26/2024 6:16 PM CHANGE MANAGEMENT ANALYST 12/26/2024 6:23 PM CHANGE MANAGEMENT ANALYST Marino Hernandez MD LAB BLOOD ORDERABLES Fi nal Result [address] [address] * Magnesium (12/26/2024 6:16 PM CHANGE MANAGEMENT ANALYST) [facility] Magnesium 2.0 1.4 - 2.5 mg/dL Comment:Testing performed by : [address] [address] Blood 12/26/2024 6:16 PM CHANGE MANAGEMENT ANALYST 12/26/2024 6:23 PM CHANGE MANAGEMENT ANALYST Marino Hernandez MD LAB BLOOD ORDERABLES Fi nal Result [address] [address] * Influenza A/B, RSV, and COVID-19 PCR Nasopharyngeal (12/26/2024 6:13 PM CHANGE MANAGEMENT ANALYST) [facility] COVID-19 RNA Negative Negative Comment:Testing performed by : [address] [address] Influenza A RNA Negative Negative [facility] Comment:Testing performed by : [address] [address] Influenza B RNA Negative Negative [facility] Comment:Testing performed by : [address] [address] RSV RNA Negative Negative [facility] Comment: Interpretive data: Testing performed by [facility]. This test is performed using the [employer] Xpert Xpress CoV-2/Flu/RSV plus assay. This is a multiplex, real-time reverse transcriptase PCR assay intended for the qualitative detection of nucleic acid from SARS-CoV-2, influenza A, influenza B, and respiratory syncytial virus. This assay has been cleared by the [place] Food and Drug administration. The performance characteristics have been verified by the [facility]. Results must be considered in the clinical context, and a negative result does not rule out infection. Interpretive Data last revised 2023 Testing performed by: [address] [address] Nasopharyngeal 12/26/2024 6: 13 PM CHANGE MANAGEMENT ANALYST 12/26/2024 6:23 PM CHANGE MANAGEMENT ANALYST Narrative [facility] LOYA - 12/26/2024 7:02 PM CHANGE MANAGEMENT ANALYST Is the Patient experiencing symptoms consistent with COVID?->Yes Robbie Shearer DO LAB MICROBIOLOGY - GENERAL ORDERABLES Final Result [facility] [address] [facility] Department of Laboratories [place], [place] [id number] * (ABNORMAL) Troponin T high-sensitivity 4-hour (12/26/2024 4:46 PM CHANGE MANAGEMENT ANALYST) Trop T hs 36(H) <=14 ng/L Comment: Interpretive Data For further hscTnT resources including the diagnostic algorithm and an aid in interpretation, copy and paste this link: https://nrl.testcatalog.org/show/hsTrop Current Interpretive Data last revised 2020. Testing performed by: [address] [address] Trop T hs delta -4 ng/L [facility] Comment:Testing performed by : [address] [address] Trop T hs interp Insignificant [facility] LOYA Comment:Testing performed by : [address] [address] Blood 12/26/2024 4:46 PM CHANGE MANAGEMENT ANALYST 12/26/2024 4:50 PM CHANGE MANAGEMENT ANALYST us Robbie Shearer DO LAB BLOOD ORDERABLES Final Result [facility] [address] [facility] [place] [address] * (ABNORMAL) Urinalysis reflex to microscopic and culture Urine, clean voided (12/26/2024 2:44 PM CHANGE MANAGEMENT ANALYST) Color, ur Yellow Yellow Comment:Testing performed by : [address] [address] Clarity, ur Clear Clear [facility] Comment:Testing performed by : [address] [address] Specific gravity, ur 1.011 1.003 - 1.030 [facility] Comment:Testing performed by : [address] [address] pH, urine 5.0 [facility]BE Comment: Interpretive Data U rine pH is affected by diet, medications, systemic acid-base disturbances, and renal tubular function. pH may affect urinary stone formation. For example, urine pH below 6.0 may help reduce the tendency for calcium phosphate stones and pH greater than 6.0 may reduce the tendency for uric acid stone formation. Source: [facility] Current Interpretive Data was last revised on 2017 Testing performed by: [address] [address] Protein, ur ql 1+(A) Negative [facility] Comment:Testing performed by : [address] [address] Glucose, ur ql Negative Negative [facility] Comment:Testing performed by : [address] [address] Ketones, ur Negative Negative [facility] LOYA Comment:Testing performed by : [address] [address] Bilirubin, ur Negative Negative [facility] LOYA Comment:Testing performed by : [address] [address] Blood, ur Negative Negative [facility] Comment:Testing performed by : [address] [address] Urobilinogen, ur <2.0 <2.0 mg/dL [facility] Comment:Testing performed by : [address] [address] Nitrite, ur Negative Negative [facility] Comment:Testing performed by : [address] [address] Leukocyte esterase, ur Negative Negative [facility] Comment:Testing performed by : [address] [address] UA reflex comment Reflex to microscopic UA will be performed. [facility] Comment:Testing performed by : [address] [address] Urine, clean voided 12/26/2024 2:44 PM CHANGE MANAGEMENT ANALYST 12/26/2024 2:48 PM CHANGE MANAGEMENT ANALYST Robbie Shearer DO LAB MICROBIOLOGY - GENERAL ORDERABLES Final Result Performing Organization Address [facility] de Phone Number [facility] [place] [address] * Urinalysis, microscopic only (12/26/2024 2:44 PM CHANGE MANAGEMENT ANALYST) WBC, ur 0-5 0 - 5 /HPF Comment:Testing performed by : [address] [address] RBC, ur 0-2 0 - 2 /HPF [facility] Comment:Testing performed by : [address] [address] Culture Reflex Comment Reflex conditions for urine culture (WBC >10) not met. [facility]BE Comment:Testing performed by : [address] [address] Urine, clean voided 12/26/2024 2:44 PM CHANGE MANAGEMENT ANALYST 12/26/2024 2:48 PM CHANGE MANAGEMENT ANALYST Robbie Shearer DO LAB URINE ORDERABLES Final Result Performing Organization Address [facility] de Phone Number [facility] [place] [address] * Urine culture Urine, clean voided (12/26/2024 2:44 PM CHANGE MANAGEMENT ANALYST) Report Final Report: No growth Comment:Testing performed by : [facility], [address] [place]., [address] Urine, clean voided 12/26/2024 2:44 PM CHANGE MANAGEMENT ANALYST 12/26/2024 9:48 PM CHANGE MANAGEMENT ANALYST Narrative [facility]BE - 12/28/2024 7:48 AM CHANGE MANAGEMENT ANALYST Indications for Culture:->Recent positive UA Testing performed by [facility] ([phone]) us Mayda Escobar MEDIA ANALYST LAB MICROBIOLOGY - GENERAL O RDERABLES Final Result Performing Organization Address City/[facility]/ZIP Co de Phone Number [facility] [address] [facility] [address] * (ABNORMAL) Troponin T high-sensitivity 2-hour (12/26/2024 2:19 PM CHANGE MANAGEMENT ANALYST) Trop T hs 39(H) <=14 ng/L Comment: Interpretive Data For further hscTnT resources including the diagnostic algorithm and an aid in interpretation, copy and paste this link: https://nrl.testcatalog.org/show/[email or web address] Current Interpretive Data last revised 2020. Testing performed by: [address] [address] Trop T hs delta -1 ng/L ABEBE Comment:Testing performed by : [address] [address] Trop T hs interp Insignificant ABEBE Comment:Testing performed by : [address] [address] Blood 12/26/2024 2:19 PM CHANGE MANAGEMENT ANALYST 12/26/2024 2:28 PM CHANGE MANAGEMENT ANALYST us Robbie Shearer DO LAB BLOOD ORDERABLES Final Result Performing Organization Address City/[facility]/ZIP Co de Phone Number ABEBE [address] [facility] [place] [address] * Sepsis Lactate w/ Reflex (12/26/2024 2:19 PM CHANGE MANAGEMENT ANALYST) Sepsis Lactate 0.8 0.7 - 2.0 mmol/L Comment:Testing performed by : [facility], [address] [place] [address]., [address] Blood 12/26/2024 2:19 PM CHANGE MANAGEMENT ANALYST 12/26/2024 2:29 PM CHANGE MANAGEMENT ANALYST Robbie Shearer DO LAB BLOOD ORDERABLES Final Result ABEBE [address] [facility] [place] [address] * Blood culture Blood Peripheral (12/26/2024 2:19 PM CHANGE MANAGEMENT ANALYST) Pathologist [facility] Report Final Report: No growth Comment:Testing performed by : [facility], [address] [place] [place]., [address] Blood (Peripheral) 12/26/2024 2:19 PM CHANGE MANAGEMENT ANALYST 12/26/2024 5:25 PM CHANGE MANAGEMENT ANALYST Narrative ABEBE - 12/31/2024 7:00 AM CHANGE MANAGEMENT ANALYST From a different site than #1. Draw Blood cultures before administration of Antibiotics Collection->Peripheral 1. Blood cultures are incubated for 4 days on a continuously monitored blood culture system. The first report of a negative culture is issued within 24 hours of receipt of the specimen in the laboratory. 2. Positive culture results are reported as soon as they are detected. 3. The most important factor for detection of microbes in the setting of bloodstream infection is the volume of blood submitted for culture. Failure to collect an optimal blood volume can result in false negative blood cultures. 4. For pediatric patients, the recommended blood volume to collect follows a weight based strategy. See the electronic test catalog for collection instructions. 5. For positive blood cultures, a rapid molecular test may be performed for organism identification using the viji ePlex blood culture identification panel for gram positive (BCID-GP) and gram negative (BCID-GN) organisms. This nucleic acid amplification test detects microbial DNA in positive blood culture broth. This assay has been cleared by the [place] Food and Drug Administration and its performance characteristics have been verified by the [facility]. For questions about this culture, contact the Microbiology Laboratory at [phone]. Interpretive data was last revised on 24. Robbie Shearer DO LAB MICROBIOLOGY - GENERAL ORDERABLES Final Result ABEBE [address] [facility] [place] [address] * Blood culture Blood Peripheral (12/26/2024 2:19 PM CHANGE MANAGEMENT ANALYST) Report Final Report: No growth Comment:Testing performed by : [facility], [address] [place] [place]., [address] Blood (Peripheral) 12/26/2024 2:19 PM CHANGE MANAGEMENT ANALYST 12/26/2024 5:25 PM CHANGE MANAGEMENT ANALYST [facility] [place] - 12/31/2024 7:00 AM CHANGE MANAGEMENT ANALYST Draw Blood cultures before administration of Antibiotics Collection->Peripheral 1. Blood cultures are incubated for 4 days on a continuously monitored blood culture system. The first report of a negative culture is issued within 24 hours of receipt of the specimen in the laboratory. 2. Positive culture results are reported as soon as they are detected. 3. The most important factor for detection of microbes in the setting of bloodstream infection is the volume of blood submitted for culture. Failure to collect an optimal blood volume can result in false negative blood cultures. 4. For pediatric patients, the recommended blood volume to collect follows a weight based strategy. See the electronic test catalog for collection instructions. 5. For positive blood cultures, a rapid molecular test may be performed for organism identification using the viji ePlex blood culture identification panel for gram positive (BCID-GP) and gram negative (BCID-GN) organisms. This nucleic acid amplification test detects microbial DNA in positive blood culture broth. This assay has been cleared by the [place] Food and Drug Administration and its performance characteristics have been verified by the [facility]. For questions about this culture, contact the Microbiology Laboratory at [phone]. Interpretive data was last revised on 24. us Robbie Shearer DO LAB MICROBIOLOGY - GENERAL ORDERABLES Final Result ABEBE [address] [facility] [place] [address] * CT Chest Abdomen Pelvis WO Contrast (12/26/2024 1:58 PM CHANGE MANAGEMENT ANALYST) Anatomical Region Laterality Modality Body N/A Computed Tomogra phy 12/26/2024 2:24 PM CHANGE MANAGEMENT ANALYST Narrative 12/26/2024 2:41 PM CHANGE MANAGEMENT ANALYST EXAM DESCRIPTION: CT CHEST ABDOMEN PELVIS WO CONTRAST REASON FOR STUDY: sob, abnormal CXR, left flank pain, UTI, hx kidney transplant, ?pyelo PT reports she was diagnosed with UTI but was not able to get antibiotics yet and was told to come to ED. Also reports edema in abdomen and in legs. Hx of kidney transplant. Also feels SOB. Started new BP medication 1 month ago TECHNIQUE: CT scan of the chest, abdomen, and pelvis performed without intravenous and without oral contrast using helical scanning technique with dynamic intravenous contrast injection. Reconstructed coronal and sagittal MPR images reviewed. All images stored on PACS. Automated exposure control was used as a dose optimization technique for this examination COMPARISON: Outside CT 07/23/2020 REFERENCE: Per ACR white paper recommendations, unless otherwise specified no follow-up imaging is recommended for incidental renal and adrenal lesions per consensus recommendations based on imaging criteria. Further lab evaluation could be pursued based on clinical findings. FINDINGS: Absence of intravenous contrast decreases sensitivity for detection of pathology. Motion degraded examination. Findings made within these confines. CHEST HARDWARE/LINES/TUBES: Left chest wall pacemaker device/AICD with leads terminating in the right ventricular apex VASCULATURE: Multifocal atherosclerotic changes of the thoracic aorta and its major branches without aneurysm. Dilated main pulmonary artery measuring 3.1 cm suggestive of pulmonary hypertension. MEDIASTINUM/HEART: Mild cardiomegaly. Small hiatal hernia CORONARY ARTERY CALCIFICATION: Advanced multivessel atherosclerotic calcifications. Status post CABG. LYMPH NODES: Mildly prominent left axillary lymph nodes, nonspecific and possibly reactive. For example left axillary lymph node measures 1.2 cm in short axis (2; 30). No pathologically enlarged intrathoracic lymphadenopathy. Partially calcified lymph nodes likely representing sequela of previous granulomatous disease. AIRWAY: Central airways are patent. LUNGS: Moderate right and small left pleural effusions with subjacent atelectasis. No consolidation or pneumothorax. Peribronchial wispy ground-glass opacities likely reflects subsegmental atelectasis/hypoventilatory changes. 2 mm anterior right lower lobe pulmonary nodule (3; 60). 4 mm anterior left lower lobe pulmonary nodule (3; 71). Calcified pulmonary nodules which likely represent sequelae from prior granulomatous disease. BONES/SOFT TISSUES: Median sternotomy with intact sternal wires. Multilevel degenerative changes of the cervicothoracic spine. Diffuse bone demineralization. No aggressive appearing osseous lesions. No acute osseous abnormality.. Bilateral thyroid nodules measuring up to 1.5 cm (2; 6). ABDOMEN/PELVIS LIVER: No concerning lesions by noncontrast technique. GALLBLADDER/BILE DUCTS: Gallbladder is surgically absent. SPLEEN: Normal size. No focal concerning lesions. PANCREAS: Parenchymal atrophy without ductal dilatation or discrete lesion. ADRENALS: Right adrenal gland not definitively visualized and possibly surgically absent. Unremarkable appearance of the left adrenal gland. KIDNEYS/URETERS: Stigmata of end-stage renal disease with severe atrophy of the [place] kidneys. Right lower quadrant transplant kidney without hydronephrosis. No significant adjacent inflammatory changes. BLADDER/URINARY: No significant bladder wall thickening. Punctate focus of gas within the bladder lumen. REPRODUCTIVE: Status post hysterectomy. Pessary device within the vaginal cuff. Ovaries are not definitively visualized and poorly evaluated by CT. GASTROINTESTINAL: Colonic diverticulosis without acute inflammation. Apparent mild wall thickening of the sigmoid colon is similar to prior examination 07/23/2020 and favored secondary to decompression and/or chronic scarring in the setting of diverticulosis. No significant adjacent inflammatory changes. Appendix is not definitively visualized. However, there are no significant inflammatory changes within the right lower quandrant. No bowel obstruction. Mild wall thickening of the small bowel loop within the central abdomen with trace adjacent interloop edema (such as 8; 32). LYMPH NODES: No pathologically enlarged abdominal or pelvic lymphadenopathy. PERITONEUM/RETROPERITONEUM: Mild diffuse mesenteric edema. Scattered small volume free fluid. No free air. VASCULATURE ABDOMEN: Extensive vascular calcifications. Aortic atherosclerotic calcifications without aneurysm. MUSCULOSKELETAL ABDOMEN PELVIS: Unchanged large wide-mouth right lateral lumbar hernia containing nondilated ascending colon and fluid. Calcifications along the right lower quadrant renal transplant incision scar. Postsurgical changes of the anterior abdominal wall. Mild diffuse anasarca. Multilevel degenerative changes of the lumbar spine. Grade 1 anterolisthesis of L4 on L5 and L3 on L4. Mild scoliotic curvature of the thoracolumbar spine. No aggressive appearing osseous lesions. No acute osseous abnormality. OTHER: No significant abnormality. IMPRESSION: Findings of volume overload including moderate right and small left pleural effusions, small volume ascites, and diffuse anasarca. Mild wall thickening of a small bowel loop within the central abdomen with trace adjacent interloop edema. Findings are nonspecific but could be related to volume overload versus enteritis. Punctate focus of gas within the bladder lumen. Recommend correlation with recent instrumentation and urinalysis. Right lower quadrant transplant kidney without hydronephrosis or adjacent inflammatory changes. Bilateral thyroid nodules measuring up to 1.5 cm. Recommend follow-up thyroid ultrasound if not previously performed. Small bilateral pulmonary nodules measuring up to 4 mm. Per Fleischner Society Guidelines, no follow-up needed if patient is low-risk (and has no known or suspected primary neoplasm). Non-contrast chest CT can be considered in 12 months if patient is high-risk. Additional incidental and chronic findings. THIS IS AN ELECTRONICALLY VERIFIED FINAL REPORT 12/26/2024 2:41 PM - Electronically signed by Rey Rojas M.D. NS: NS Report ID: [id number] [place] Location: [place] [address] Procedure Note Rey Rojas MD - 12/26/2024 EXAM DESCRIPTION: CT CHEST ABDOMEN PELVIS WO CONTRAST REASON FOR STUDY: sob, abnormal CXR, left flank pain, UTI, hx kidney transplant, ?pyelo PT reports she was diagnosed with UTI but was not able to get antibioticsyet and was told to come to ED. Also reports edema in abdomen and in legs. Hxof kidney transplant. Also feels SOB. Started new BP medication 1 month ago TECHNIQUE: CT scan of the chest, abdomen, and pelvis performed without intravenous and without oral contrast using helical scanning techniquewith dynamic intravenous contrast injection. Reconstructed coronal and sagittalMPR images reviewed. All images stored on PACS. Automated exposure control was used as a dose optimization technique for this examination COMPARISON: Outside CT 07/23/2020 REFERENCE: Per ACR white paper recommendations, unless otherwise specifiedno follow-up imaging is recommended for incidental renal and adrenal lesionsper consensus recommendations based on imaging criteria. Further labevaluation could be pursued based on clinical findings. FINDINGS: Absence of intravenous contrast decreases sensitivity fordetection of pathology. Motion degraded examination. Findings made within these confines. CHEST HARDWARE/LINES/TUBES: Left chest wall pacemaker device/AICD with leads terminating in the right ventricular apex VASCULATURE: Multifocal atherosclerotic changes of the thoracic aorta andits major branches without aneurysm. Dilated main pulmonary artery measuring3.1 cm suggestive of pulmonary hypertension. MEDIASTINUM/HEART: Mild cardiomegaly. Small hiatal hernia CORONARY ARTERY CALCIFICATION: Advanced multivessel atherosclerotic calcifications. Status post CABG. LYMPH NODES: Mildly prominent left axillary lymph nodes, nonspecific and possibly reactive. For example left axillary lymph node measures 1.2 cmin short axis (2; 30). No pathologically enlarged intrathoraciclymphadenopathy. Partially calcified lymph nodes likely representing sequela of previous granulomatous disease. AIRWAY: Central airways are patent. LUNGS: Moderate right and small left pleural effusions with subjacent atelectasis. No consolidation or pneumothorax. Peribronchial wispy ground-glass opacities likely reflects subsegmental atelectasis/hypoventilatory changes. 2 mm anterior right lower lobepulmonary nodule (3; 60). 4 mm anterior left lower lobe pulmonary nodule (3; 71). Calcified pulmonary nodules which likely represent sequelae from prior granulomatous disease. BONES/SOFT TISSUES: Median sternotomy with intact sternal wires.Multilevel degenerative changes of the cervicothoracic spine. Diffuse bone demineralization. No aggressive appearing osseous lesions. No acuteosseous abnormality.. Bilateral thyroid nodules measuring up to 1.5 cm (2; 6). ABDOMEN/PELVIS LIVER: No concerning lesions by noncontrast technique. GALLBLADDER/BILE DUCTS: Gallbladder is surgically absent. SPLEEN: Normal size. No focal concerning lesions. PANCREAS: Parenchymal atrophy without ductal dilatation or discretelesion. ADRENALS: Right adrenal gland not definitively visualized and possibly surgically absent. Unremarkable appearance of the left adrenal gland. KIDNEYS/URETERS: Stigmata of end-stage renal disease with severe atrophyof the [place] kidneys. Right lower quadrant transplant kidney without hydronephrosis. No significant adjacent inflammatory changes. BLADDER/URINARY: No significant bladder wall thickening. Punctate focusof gas within the bladder lumen. REPRODUCTIVE: Status post hysterectomy. Pessary device within thevaginal cuff. Ovaries are not definitively visualized and poorly evaluated by CT. GASTROINTESTINAL: Colonic diverticulosis without acute inflammation. Apparent mild wall thickening of the sigmoid colon is similar to prior examination 07/23/2020 and favored secondary to decompression and/orchronic scarring in the setting of diverticulosis. No significant adjacent inflammatory changes. Appendix is not definitively visualized. However, there are no significant inflammatory changes within the right lower quandrant. No bowel obstruction. Mild wall thickening of the smallbowel loop within the central abdomen with trace adjacent interloop edema (suchas 8; 32). LYMPH NODES: No pathologically enlarged abdominal or pelviclymphadenopathy. PERITONEUM/RETROPERITONEUM: Mild diffuse mesenteric edema. Scatteredsmall volume free fluid. No free air. VASCULATURE ABDOMEN: Extensive vascular calcifications. Aortic atherosclerotic calcifications without aneurysm. MUSCULOSKELETAL ABDOMEN PELVIS: Unchanged large wide-mouth right lateral lumbar hernia containing nondilated ascending colon and fluid.Calcifications along the right lower quadrant renal transplant incision scar.Postsurgical changes of the anterior abdominal wall. Mild diffuse anasarca.Multilevel degenerative changes of the lumbar spine. Grade 1 anterolisthesis of L4on L5 and L3 on L4. Mild scoliotic curvature of the thoracolumbar spine. No aggressive appearing osseous lesions. No acute osseous abnormality. OTHER: No significant abnormality. IMPRESSION: Findings of volume overload including moderate right and small leftpleural effusions, small volume ascites, and diffuse anasarca. Mild wall thickening of a small bowel loop within the central abdomenwith trace adjacent interloop edema. Findings are nonspecific but could berelated to volume overload versus enteritis. Punctate focus of gas within the bladder lumen. Recommend correlationwith recent instrumentation and urinalysis. Right lower quadrant transplant kidney without hydronephrosis or adjacent inflammatory changes. Bilateral thyroid nodules measuring up to 1.5 cm. Recommend follow-up thyroid ultrasound if not previously performed. Small bilateral pulmonary nodules measuring up to 4 mm. Per Fleischner Society Guidelines, no follow-up needed if patient is low-risk (and has no known or suspected primary neoplasm). Non-contrast chest CT can beconsidered in 12 months if patient is high-risk. Additional incidental and chronic findings. THIS IS AN ELECTRONICALLY VERIFIED FINAL REPORT 12/26/2024 2:41 PM - Electronically signed by Rey MahanD. NS: EULOGIO Report ID: [id number] [place] Location: [id number] us Robbie Shearer DO IMG CT PROCEDURES Final Res ult * XR Chest 1 Vw Portable (if patient condition/safety warrant portable) (12/26/2024 12:25 PM CHANGE MANAGEMENT ANALYST) Anatomical Region Laterality Modality Body, Chest N/A Computed Radiogr aphy 12/26/2024 1:06 PM CHANGE MANAGEMENT ANALYST Narrative 12/26/2024 1:08 PM CHANGE MANAGEMENT ANALYST EXAM DESCRIPTION: XR CHEST 1 VIEW REASON FOR STUDY: Shortness of breath Shortness of breath today TECHNIQUE: Single radiographic view(s) of the chest. COMPARISON: Chest radiographs 09/06/2018 FINDINGS: The heart is enlarged with central vascular congestion. There is bilateral perihilar interstitial prominence. 3 cm round opacity projects over the right hilum. There are aortic calcifications. There are median sternotomy wires. There is a left chest wall cardiac device. IMPRESSION: Central vascular congestion with perihilar interstitial prominence which could reflect edema. Round opacity projecting over the right hilum. While this could be due to vascular congestion, this is new since prior and could also represent adenopathy or pulmonary nodule/mass and could be better evaluated with CT. THIS IS AN ELECTRONICALLY VERIFIED FINAL REPORT 12/26/2024 1:08 PM - Electronically signed by Kai Lyon M.D. JR: Report ID: [id number] [place] Location: [id number] Procedure Note Kai Lyon MD - 12/26/2024 EXAM DESCRIPTION: XR CHEST 1 VIEW REASON FOR STUDY: Shortness of breath Shortness of breath today TECHNIQUE: Single radiographic view(s) of the chest. COMPARISON: Chest radiographs 09/06/2018 FINDINGS: The heart is enlarged with central vascular congestion. Thereis bilateral perihilar interstitial prominence. 3 cm round opacity projectsover the right hilum. There are aortic calcifications. There are median sternotomy wires. There is a left chest wall cardiac device. IMPRESSION: Central vascular congestion with perihilar interstitial prominence which could reflect edema. Round opacity projecting over the right hilum. While this could be dueto vascular congestion, this is new since prior and could also represent adenopathy or pulmonary nodule/mass and could be better evaluated with CT. THIS IS AN ELECTRONICALLY VERIFIED FINAL REPORT 12/26/2024 1:08 PM - Electronically signed by Kai Lyon M.D. JR: Report ID: [id number] [place] Location: [place] [address] Robbie Shearer DO IMG XR PROCEDURES Final Res ult * (ABNORMAL) Troponin T high-sensitivity series (baseline, 2hr, 4hr, 6hr) (12/26/2024 12:14 PM CHANGE MANAGEMENT ANALYST) Pathologist [facility] Trop T hs 40(H) <=14 ng/L Comment: Interpretive Data For further hscTnT resources including the diagnostic algorithm and an aid in interpretation, copy and paste this link: https://nrl.testcatalog.org/show/[email or web address] Current Interpretive Data last revised 2020. Testing performed by: [facility], [address] [place] [address]., [address] Blood 12/26/2024 12:1 4 PM CHANGE MANAGEMENT ANALYST 12/26/2024 12:19 PM CHANGE MANAGEMENT ANALYST us Robbie Shearer DO LAB BLOOD ORDERABLES Final Result ABEBE [address] [facility] [place] [address] * (ABNORMAL) eGFR (12/26/2024 12:14 PM CHANGE MANAGEMENT ANALYST) Pathologist [facility] eGFR 18(L) >=60 mL/min/1. 73 m2 Comment: Interpretive Data Reference Interval Normal >/= 90 mL/min/1.73m2 Mildly decreased* 60 - 89 mL/min/1.73m2 Mildly to moderately decreased 45 - 59 mL/min/1.73m2 Moderately to severely decreased 30 - 44 mL/min/1.73m2 Severely decreased 15 - 29 mL/min/1.73m2 Kidney Failure < 15 mL/min/1.73m2 *Relative to young adult level Estimated glomerular filtration rate is determined by the 2020 CKD-EPI equation recommended by the National Kidney Foundation (A Unifying Approach to GFR Estimation: Recommendations of the NKF-ASK Task Force on Reassessing the Inclusion of Race in Diagnosing Kidney Disease, JASN 2020). The CKD-EPI equation should not be used for patients with unstable renal function and has not been validated in children and those over 70. Current interpretive data was last reviewed 2021. Testing performed by: [address] [address] Blood 12/26/2024 12:1 4 PM CHANGE MANAGEMENT ANALYST 12/26/2024 12:19 PM CHANGE MANAGEMENT ANALYST Robbie Shearer DO LAB BLOOD ORDERABLES Final Result [facility] [address] [facility] [place] [address] * Differential, auto (12/26/2024 12:14 PM CHANGE MANAGEMENT ANALYST) Neutrophil abs 5.3 1.5 - 6.5 K/cumm Comment:Testing performed by : [address] [address] Imm gran abs 0.1 0.0 - 0.1 K/cumm ABEBE Comment:Testing performed by : [address] [address] Lymphocyte abs 1.4 0.8 - 3.3 K/cumm ABEBE Comment:Testing performed by : [address] [address] Monocyte abs 0.5 0.2 - 0.8 K/cumm ABEBE Comment:Testing performed by : [address] [address] Eosinophil abs 0.3 0.0 - 0.5 K/cumm [facility]:Testing performed by : [address] [address] Basophil abs 0.0 0.0 - 0.1 K/cumm ABEBE Comment:Testing performed by : [address] [address] Neutrophil pct 70.0 % [facility] Comment: Interpretive Data Percent cell count reference ranges are not reported, since discordance with absolute values may lead to misinterpretation of CBC data. Current Interpretive Data was last revised on 2018. Testing performed by: [address] [address] Imm gran pct 0.9 % [facility] Comment: Interpretive Data Percent cell count reference ranges are not reported, since discordance with absolute values may lead to misinterpretation of CBC data. Current Interpretive Data was last revised on 2018. Testing performed by: [address] [address] Lymphocyte pct 17.9 % [facility] Comment: Interpretive Data Percent cell count reference ranges are not reported, since discordance with absolute values may lead to misinterpretation of CBC data. Current Interpretive Data was last revised on 2018. Testing performed by: [address] [address] Monocyte pct 7.0 % [facility] Comment: Interpretive Data Percent cell count reference ranges are not reported, since discordance with absolute values may lead to misinterpretation of CBC data. Current Interpretive Data was last revised on 2018. Testing performed by: [address] [address] Eosinophil pct 4.1 % [facility] Comment: Interpretive Data Percent cell count reference ranges are not reported, since discordance with absolute values may lead to misinterpretation of CBC data. Current Interpretive Data was last revised on 2018. Testing performed by: [address] [address] Basophil pct 0.1 % [facility] Comment: Interpretive Data Percent cell count reference ranges are not reported, since discordance with absolute values may lead to misinterpretation of CBC data. Current Interpretive Data was last revised on 2018. Testing performed by: [facility], [address] [place] [address]., [address] Blood 12/26/2024 12:1 4 PM CHANGE MANAGEMENT ANALYST 12/26/2024 12:19 PM CHANGE MANAGEMENT ANALYST us Robbie Fab Shearer DO LAB BLOOD ORDERABLES Final Result [facility] [address] [facility] Department of Laboratories [place], [place] [id number] * (ABNORMAL) Pro B-type natriuretic peptide (12/26/2024 12:14 PM CHANGE MANAGEMENT ANALYST) NT-proBNP 17,285(H) <=450 pg/mL Comment: Interpretive Comments: A. Dyspnea in Acute Care Setting All Ages: < 300 pg/ml, acute heart failure unlikely. < 50 yrs: 300 - 450 pg/ml, further investigation warranted. > 450 pg/ml, acute heart failure likely. 50 - 74 yrs: 300 - 900 pg/ml, further investigation warranted. > 900 pg/ml, acute heart failure likely . > or = 75 yrs: 450 - 1800 pg/ml, further investigation warranted. > 1800 pg/ml, acute heart failure likely. B. Non-acute Setting < 75 yrs < 125 pg/ml, rules out heart failure. > or = 125 pg/ml, further investigation warranted. > or = 75 yrs < 450 pg/ml, rules out heart failure. > or = 450 pg/ml, further investigation warranted. - Knowledge of each individual patient's NT-proBNP range may be more useful than using similar cut-points for every patient. Please note that marked elevations in NT-proBNP levels may be observed in state other than Left Ventricular Congestive Failure, including: acute coronary syndromes, right heart strain/failure (including pulmonary embolism and cor pulmonale), critical illness, renal failure, as well as advanced age. - References: 1. Aida ASHFORD et.al. Eur Heart J. 2006:27:330-337. 2. Keith RW, Chela AM. J. AM Cortez Cardiol: Cardiovasc Imag. 2009;2: 216- 225. Interpretive Data Last Revised Date: 2018. Testing performed by: [address] [address] Blood 12/26/2024 12:1 4 PM CHANGE MANAGEMENT ANALYST 12/26/2024 12:19 PM CHANGE MANAGEMENT ANALYST Robbie Shearer DO LAB BLOOD ORDERABLES Final Result [facility] [address] [facility] [place] [address] * (ABNORMAL) CBC with auto differential (12/26/2024 12:14 PM CHANGE MANAGEMENT ANALYST) WBC 7.5 3.8 - 9.9 K/cumm Comment:Testing performed by : [address] [address] Hgb 9.9(L) 11.9 - 15.5 g/dL [facility] Comment:Testing performed by : [address] [address] Hct 30.9(L) 35.6 - 45.5 % [facility] Comment:Testing performed by : [address] [address] Plt 146(L) 150 - 400 K/cumm [facility] Comment:Testing performed by : [address] [address] MPV 9.2 9.1 - 12.3 fL [facility] Comment:Testing performed by : [address] [address] RBC 3.36(L) 3.90 - 5.20 M/cumm [facility] Comment:Testing performed by : [address] [address] MCV 92.0 81.3 - 96.4 fL [facility] Comment:Testing performed by : [address] [address] MCH 29.5 27.1 - 33.3 pg [facility] Comment:Testing performed by : [address] [address] MCHC 32.0(L) 32.3 - 35.7 g/dL [facility] LOYA Comment:Testing performed by : [address] [address] RDW CV 14.4 11.1 - 14.9 % [facility] Comment:Testing performed by : [address] [address] RDW SD 49.0(H) 35.7 - 48.1 fL [facility]YA Comment:Testing performed by : [address] [address] NRBC abs 0.00 0.00 - 0.01 K/cumm [facility]YA Comment:Testing performed by : [address] [address] Blood 12/26/2024 12:1 4 PM CHANGE MANAGEMENT ANALYST 12/26/2024 12:19 PM CHANGE MANAGEMENT ANALYST Robbie Shearer DO LAB BLOOD ORDERABLES Final Result [facility] [address] [facility] [place] [address] * (ABNORMAL) Comprehensive metabolic panel (12/26/2024 12:14 PM CHANGE MANAGEMENT ANALYST) Sodium 123(L) 135 - 145 mmol/L Comment:Testing performed by : [address] [address] Potassium, pl 5.0(H) 3.3 - 4.9 mmol/L [facility] LOYA Comment:Testing performed by : [address] [address] Chloride 93(L) 97 - 110 mmol/L [facility]YA Comment:Testing performed by : [address] [address] CO2 18(L) 22 - 32 mmol/L [facility] Comment:Testing performed by : [address] [address] Anion gap 12 2 - 15 mmol/L [facility] Comment:Testing performed by : [address] [address] BUN 85(H) 6 - 25 mg/dL [facility] Comment:Testing performed by : [address] [address] Creatinine 2.63(H) 0.60 - 1.10 mg/dL [facility] Comment:Testing performed by : [address] [address] Glucose 130 70 - 199 mg/dL [facility] Comment: Interpretive Data Fasting glucose >/= 126 mg/dl is diagnostic for diabetes. Fasting is defined as no caloric intake for at least 8 hours. Fasting glucose between 100 mg/dl to 125 mg/dl is diagnostic of prediabetes. In a patient with classic symptoms of hyperglycemia or hyperglycemic crisis, a random glucose >/= 200 mg/dl is diagnostic for diabetes. In the absence of unequivocal hyperglycemia, results should be confirmed by repeat testing. The classification and Diagnosis of Diabetes Diabetes Care 2021; 46: S19-S40. Current interpretive data was last revised 2022. Testing performed by: [address] [address] Calcium 9.1 8.5 - 10.3 mg/dL [facility] Comment:Testing performed by : [address] [address] Bilirubin, total 0.4 0.1 - 1.2 mg/dL [facility] Comment:Testing performed by : [address] [address] Protein, pl 6.8 6.5 - 8.5 g/dL [facility] Comment:Testing performed by : [address] [address] Albumin 3.6 3.5 - 5.0 g/dL [facility] Comment:Testing performed by : [address] [address] Alk phos 50 40 - 130 Units/L [facility] Comment:Testing performed by : [address] [address] ALT 9 7 - 45 Units/L [facility] Comment:Testing performed by : [address] [address] AST 18 10 - 45 Units/L [facility] Comment:Testing performed by : [address], [place]., [address] Blood 12/26/2024 12:1 4 PM CHANGE MANAGEMENT ANALYST 12/26/2024 12:19 PM CHANGE MANAGEMENT ANALYST Robbie Shearer DO LAB BLOOD ORDERABLES Final Result Performing Organization Address [facility] Co de Phone Number [facility] [place] [address] * ECG 12 lead (12/26/2024 12:13 PM CHANGE MANAGEMENT ANALYST) Pathologist [facility] Ventricular Rate EKG/Min 58 BPM [facility] Atrial Rate 58 BPM [facility] MS-Interval (MSEC) 154 ms [facility] QRS-Interval (MSEC) 106 ms [facility] QT-Interval (MSEC) 440 ms [facility] QTc 431 ms [facility] P Verbena 14 degrees [facility] R Verbena -37 degrees [facility] T Verbena 19 degrees [facility] Diagnosis Sinus bradycardia with sinus arrhythmia Left axis deviation Abnormal ECG Confirmed by SOCRATES SPENCER M.D. ([facility]) on 12/26/2024 1:44:56 PM [facility] 12/26/2024 12:1 3 PM CHANGE MANAGEMENT ANALYST 12/26/2024 1:44 PM CHANGE MANAGEMENT ANALYST Robbie Shearer DO ECG ORDERABLES Final Resul t Performing Organization Address [facility] de Phone Number [facility] * Tacrolimus, Highly Sensitive, LC/MS/MS (12/25/2024 10:27 AM CHANGE MANAGEMENT ANALYST) Pathologist [facility] Tacrolimus, Highly Sensitive, LC/MS/MS 8.6 mcg/L [facility] Comment: No definitive therapeutic or toxic ranges have been established. Optimal blood drug levels are influenced by type of transplant, patient response, time post- transplant, co-administration of other drugs, and drug formulation. The following trough range is a suggested guideline: 5.0-20.0 mcg/L. 12/25/2024 10:2 7 AM CHANGE MANAGEMENT ANALYST 12/25/2024 10:27 AM CHANGE MANAGEMENT ANALYST Narrative [facility] - 12/26/2024 3:00 PM CHANGE MANAGEMENT ANALYST RAW FASTING:YES FASTING: YES Sarahi Turner MD LAB BLOOD ORDERABLES Final Resu lt Performing Organization Address City/[facility] Co de Phone Number [facility] [address] [facility] [place] [address] * COPY(IES) SENT TO: (12/25/2024 10:27 AM CHANGE MANAGEMENT ANALYST) COPY(IES) SENT TO: [facility] Comment: [facility] - COPY TO [place] [address] [place] [address] 12/25/2024 10:2 7 AM CHANGE MANAGEMENT ANALYST 12/25/2024 10:27 AM CHANGE MANAGEMENT ANALYST Narrative [facility] - 12/26/2024 3:00 PM CHANGE MANAGEMENT ANALYST RAW FASTING:YES FASTING: YES Sarahi Turner MD LAB BLOOD ORDERABLES Final Resu Performing Organization Address [facility] Co de Phone Number [facility] * (ABNORMAL) CBC with auto differential (12/25/2024 10:27 AM CHANGE MANAGEMENT ANALYST) Pathologist [facility] WBC 7.0 3.8 - 10.8 Thousand/u L [facility] RBC, POC 3.28(L) 3.80 - 5.10 Million/uL [facility] Hgb 9.7(L) 11.7 - 15.5 g/dL [facility] Hct 30.1(L) 35.0 - 45.0 % [facility] MCV 91.8 80.0 - 100.0 fL [facility] MCH 29.6 27.0 - 33.0 pg [facility] MCHC 32.2 32.0 - 36.0 g/dL [facility] Comment: For adults, a slight decrease in the calculated MCHC value (in the range of 30 to 32 g/dL) is most likely not clinically significant; however, it should be interpreted with caution in correlation with other red cell parameters and the patient's clinical condition. Rdw 13.8 11.0 - 15.0 % [facility] Platelets 156 140 - 400 Thousand/u L [facility] MPV 9.8 7.5 - 12.5 fL [facility] Neutrophils, abs 3,983 1,500 - 7,800 cells/uL [facility] Lymphocytes, abs 1,953 850 - 3,900 cells/uL [facility] Monocyte abs 714 200 - 950 cells/uL [facility] Eosinophils, abs 322 15 - 500 cells/uL [facility] Basophils, abs 28 0 - 200 cells/uL [facility] Neutrophils 56.9 % [facility] Lymphocyte pct 27.9 % [facility] Monocytes 10.2 % [facility] Eosinophils 4.6 % [facility] Basophils 0.4 % [facility] 12/25/2024 10:2 7 AM CHANGE MANAGEMENT ANALYST 12/25/2024 10:27 AM CHANGE MANAGEMENT ANALYST Narrative [facility] - 12/26/2024 3:00 PM CHANGE MANAGEMENT ANALYST RAW FASTING:YES FASTING: YES us Sarahi Turner MD LAB BLOOD ORDERABLES Final Resu lt [facility] [address] [place] [address] * (ABNORMAL) Renal function panel (12/25/2024 10:27 AM CHANGE MANAGEMENT ANALYST) Pathologist [facility] Glucose 90 65 - 99 mg/dL [facility] Comment: Fasting reference interval BUN 84(H) 7 - 25 mg/dL [facility] [place] Creatinine 2.52(H) 0.60 - 1.00 mg/dL [facility] eGFR 19(L) > OR = 60 mL/min/1.7 3m2 [facility] BUN/creat ratio 33(H) 6 - 22 (calc) [facility] Sodium 126(L) 135 - 146 mmol/L [facility] Potassium, pl 4.5 3.5 - 5.3 mmol/L [facility] Chloride 97(L) 98 - 110 mmol/L [facility] CO2 20 20 - 32 mmol/L [facility] Calcium 8.3(L) 8.6 - 10.4 mg/dL [facility] Phosphorus, sr 4.2 2.1 - 4.3 mg/dL [facility] Albumin 3.5(L) 3.6 - 5.1 g/dL [facility] 12/25/2024 10:2 7 AM CHANGE MANAGEMENT ANALYST 12/25/2024 10:27 AM CHANGE MANAGEMENT ANALYST Narrative [facility] - 12/26/2024 3:00 PM CHANGE MANAGEMENT ANALYST RAW FASTING:YES FASTING: YES Sarahi Turner MD LAB BLOOD ORDERABLES Final Resu lt Performing Organization Address City/[facility]/ZIP Co de Phone Number [facility] [address] [place] [address] * COPY(IES) SENT TO: (12/23/2024 1:47 PM CHANGE MANAGEMENT ANALYST) COPY(IES) SENT TO: [facility] Comment: [facility] - COPY TO [address] [address] 12/23/2024 1:47 PM CHANGE MANAGEMENT ANALYST 12/23/2024 1:52 PM CHANGE MANAGEMENT ANALYST Narrative [facility] - 12/25/2024 1:15 PM CHANGE MANAGEMENT ANALYST FASTING:NO FASTING: NO Stephanie Garcia MD LAB BLOOD ORDERABLE S Final Result Performing Organization Address City/[facility]/ZIP Co de Phone Number [facility] * REFLEXIVE URINE CULTURE (12/23/2024 1:47 PM CHANGE MANAGEMENT ANALYST) Urine culture [facility] Comment:CULTURE INDICATED - RESULTS TO FOLLOW 12/23/2024 1:47 PM CHANGE MANAGEMENT ANALYST 12/23/2024 1:52 PM CHANGE MANAGEMENT ANALYST Narrative [facility] - 12/25/2024 1:15 PM CHANGE MANAGEMENT ANALYST FASTING:NO FASTING: NO Stephanie Garcia MD LAB MICROBIOLOGY - GENERAL ORDERABLES Final Result [facility] [address] [place] [address] * (ABNORMAL) Urinalysis reflex to microscopic and culture Urine, clean voided (12/23/2024 1:47 PM CHANGE MANAGEMENT ANALYST) Color, ur YELLOW YELLOW [facility] Appearance, ur CLOUDY(A) CLEAR [facility] Specific gravity 1.008 1.001 - 1.035 [facility] pH, ur < OR = 5.0 5.0 - 8.0 [facility] Glucose, ur NEGATIVE NEGATIVE [facility] Bilirubin, ur NEGATIVE NEGATIVE [facility] Ketones, ur NEGATIVE NEGATIVE [facility] Blood, ur 1+(A) NEGATIVE [facility] Protein, ur, quant 1+(A) NEGATIVE [facility] Nitrites, ur NEGATIVE NEGATIVE [facility] Leukocyte esterase, ur 3+(A) NEGATIVE [facility] WBC, ur > OR = 60(A) < OR = 5 /HPF [facility] RBC, ur NONE SEEN < OR = 2 /HPF [facility] Epithelial cells, squamous, ur 0-5 < OR = 5 /HPF [facility] Bacteria, ur, quant FEW(A) NONE SEEN /HPF [facility] Hyaline cast NONE SEEN NONE SEEN /LPF [facility] Note [facility] Comment: This urine was analyzed for the presence of WBC, RBC, bacteria, casts, and other formed elements. Only those elements seen were reported. Urine, clean voided 12/23/2024 1:47 PM CHANGE MANAGEMENT ANALYST 12/23/2024 1:52 PM CHANGE MANAGEMENT ANALYST Narrative [facility] - 12/25/2024 1:15 PM CHANGE MANAGEMENT ANALYST FASTING:NO FASTING: NO us Stephanie Garcia MD LAB MICROBIOLOGY - GENERAL ORDERABLES Final Result [facility] [address] [place] [address] * (ABNORMAL) Urine culture (12/23/2024 1:47 PM CHANGE MANAGEMENT ANALYST) Urine culture (A) [facility] Comment: CULTURE, URINE, ROUTINE Micro Number: [id number] Test Status: Final Specimen Source: Urine Specimen Quality: Adequate Result: Greater than 100,000 CFU/mL of Enterococcus species Enterococcus sp. INT VIELKA AMPICILLIN S <=2 NITROFURANTOIN S <=16 VANCOMYCIN S 1 S = Susceptible I = Intermediate R = Resistant NS = Not susceptible SDD = Susceptible Dose Dependent * = Not Tested NR = Not Reported NN = See Therapy Comments 12/23/2024 1:47 PM CHANGE MANAGEMENT ANALYST 12/23/2024 1:52 PM CHANGE MANAGEMENT ANALYST Narrative [facility] - 12/25/2024 1:15 PM CHANGE MANAGEMENT ANALYST FASTING:NO FASTING: NO us Stephanie Garcia MD LAB MICROBIOLOGY - GENERAL ORDERABLES Final Result Performing Organization Address City/State/[facility] Co de Phone Number [facility] [address] [place] [address] * Dexa TBS Axial Skeleton Bone Density 1 or more sites (09/04/2024 2:22 PM CDT) Anatomical Region Laterality Modality Wrist, Body N/A Radiographic Aarti ging Narrative 09/04/2024 4:23 PM CDT Patient Name: Negrita Lincoln Date of : 1950 Date of scan: 09/04/2024 Bone mineral density was performed on a HoloNews360 Discovery Densitometer. Based on machine cross-calibration and precision studies the least significant changes of this densitometer is 0.024 g/cm2 at the spine, 0.020 g/cm2 at the total proximal femur, and 0.014g/cm2 at the forearm. HISTORY: This is a 73 y.o. postmenopausal female with a history of hyperparathyroidism, organ transplant, and osteoporosis. She reports that she has never smoked. She has never used smokeless tobacco. Currently on treatment with calcium, vitamin D, alendronate (Fosamax), glucocorticoids, and anticoagulants and current complaint of back pain and neck pain. INDICATIONS: Menopause status, treatment monitoring, currently on 5 mg of glucocorticoids for the past 12 year(s), and history of osteoporosis. FINDINGS: BONE MINERAL DENSITY OF THE LUMBAR SPINE Bone Mineral Density (BMD) of the lumbar spine was measured from L3-L4 and the average density was calculated to be 1.211 gm/cm2. This corresponds to a T-score (standard deviations from the mean of young adults) of 1.0. When compared to the previous study of 02/14/2024 there has been no significant changes in bone density. BONE MINERAL DENSITY OF THE PROXIMAL FEMUR Bone Mineral Density (BMD) of the left hip total was found to be 0.596 gm/cm2. This corresponds to a T-score standard deviations from the mean of young adults of -2.8. Femoral neck is 0.544 gm/cm2 with a T-score (standard deviations from the mean of young adults) of -2.8. When compared to the previous study of 02/14/2024 there has been a -0.028 gm/cm (-4.5%) decrease in bone density that is considered significant. BONE MINERAL DENSITY OF THE FOREARM Bone Mineral density (BMD) of the left proximal 1/3 of the radius measures 0.480 gm/cm2. This corresponds to a T-score (standard deviations from the mean of young adults) of -3.6. When compared to the previous study of 02/14/2024 there has been no significant changes in bone density. A forearm bone density study was performed in addition to the routine study due to history of hyperparathyroidism and the need to provide a comparison to the previous exam. SUMMARY: Bone mineral density shows evidence of osteoporosis and marked increase risk of fracture. There has been a significant decrease in bone density since previous measurement. L1-L2 excluded from bone mineral density analysis of the lumbar spine due to the presence of surgical hardware. The lumbar spine Trabecular Bone Score is 1.429 which suggests normal bone microarchitecture, compared to the general population. Final decisions regarding diagnostic or therapeutic recommendations should include BMD, TBS, additional clinical risk factors as well the clinical context of the patient. Please see attached TBS results for further details. ADDITIONAL COMMENTS: Postmenopausal Women and Men Over 50: Diagnostic criteria: Osteoporosis: BMD at or below -2.5 T-score; Osteopenia (low bone mass): BMD between -1.0 and -2.5 T-score. If the patient has a history of a fragility fracture, a fracture that occurred with trauma equivalent to a fall from a standing position or less, then the diagnosis is osteoporosis regardless of bone density. The history and data sections of the bone mineral density scan were prepared by Emma Stark) [employer] who is accredited by the International Society of Clinical Densitometry. The overall patient assessment and scan interpretation were performed by Jojo Crocker M.D. who is certified by the International Society of Clinical Densitometry. [id number] Becky Crocker MD IMG DXA PROCEDURES Final Resu lt * Hepatitis panel, acute (05/24/2022 11:43 AM CDT) Hep A IgM Nonreactive Nonreactive [facility] Comment: Interpretive Data: If Hep A IgM Ab is reported as Equivocal, a new sample should be drawn in two weeks for testing. Current interpretive data was last revised on 20. Hep B core IgM Nonreactive Nonreactive [facility] Comment: Interpretive Data If HepB Core IgM Ab is reported as Equivocal, a new sample should be drawn in two weeks for testing. Current interpretive data was last revised on 20. Hep C Ab Nonreactive Nonreactive [facility] Comment:Antibodies to HCV no t detected. Does NOT exclude the possibility of recent exposure to HCV. HepBsAg Nonreactive Nonreactive [facility] Blood 05/24/2022 11:4 3 AM CDT 05/24/2022 12:09 PM CDT Tessa Vieira MD LAB MICROBIOLOGY - GENERAL ORDER FILI Edited Result - Final [facility] [place] [address] from Last 3 Months or Most Recently Relevant to Health Maintenance Insurance [facility] MEDICARE ADVANTAGE MEDICARE [address] [place] [address] MEDICARE [facility] MEDICARE ADVANTAGE [place] [id number] [facility] MEDICARE ADVANTAGE [facility] Advance Directives For more information, please contact: [phone] * Full Code (Latest Code Status on File) Date Activated Date Inactivated Comments 01/11/2025 9:42 PM 02/04/2025 5:58 PM * Full Code Date Activated Date Inactivated Comments 12/26/2024 7:30 PM 01/11/2025 9:15 PM * Full Code Date Activated Date Inactivated Comments 03/16/2021 1:13 AM 03/20/2021 8:46 PM * Full Code Date Activated Date Inactivated Comments 03/15/2021 5:47 PM 03/16/2021 1:13 AM * Full Code Date Activated Date Inactivated Comments 09/03/2018 6:02 PM 09/06/2018 6:19 PM Care Teams Care Program Director Relationship Specialty Start Date End Date Nidhi Nichols PA [address] [facility] [address] [place] [address] PCP - General Family Practice 02/17/23 Lo Arenas RN [address] [facility] [facility] [address] [place] [address] Registered Nurse 04/10/18 Chadwick Benavides MD [address] [place] [address] [address] [place] [address] Referring Physician Cardiovascular Disease 04/19/23 Bryan English MD [address] [facility] [address] [place] [address] Consulting Physician Cardiology 02/03/25
--- OUTSIDE RECORDS SUMMARY | 2025-03-13 11:05 | XMS_ITS | Clinical Summary ---
Author Organization [facility] Address [address] [place] [phone] Care Team Providers Care Cement Rubber Name Role Phone Lo Arenas RN Unavailable [phone] Nidhi Nichols Primary Care Provider + [phone] Chadwick Benavides MD Unavailable [phone] SintekBryan MD Unavailable [phone] Allergies Active Allergy Reactions Criticality Noted Date [...] the next 30 min. 2 tablet 11 024 Active methenamine (HIPREX) 1 gram tablet Take 1/2(one half) tablet by mouth once daily on the first 5 days of the month. 5 tablet 11 024 Active amLODIPine (NORVASC) 5 mg tablet Take [...] prior to procedure. 8 tablet/caps ule 1 Active vitamin B complex-vitamin C-folic acid (NEPHRO-CHRIS) [...] total) nightly. 210 capsule 1 025 2024 Discontinued(R eorder) isosorbide dinitrate (ISORDIL) 10 [...] prior to procedure. 8 tablet/caps ule 1 2024 Discontinued amoxicillin (AMOXIL) 500 mg tablet/capsule [...] different from the original. ARIEL MORSE: P: [phone] Q-MONTHLY FK; Q3-ROUTINE (Exp 05/21/25) Problem Noted [...] on 01/27 - Maintain SBP < 120 Osywb-ed-gitpiwl kidney injury 12/27/2024 Assessment & Plan (02/03/2025 [...] hysterectomy Assessment & Plan (09/16/2021 9:17 AM RADIOACTIVITY TECHNICIAN): - currently managed with #4 Ring pessary [...] 08/27/2021 Assessment & Plan (09/16/2021 9:18 AM RADIOACTIVITY TECHNICIAN): - normal PVR today with double void Vaginal atrophy 08/27/2021 Assessment & Plan (09/16/2021 9:17 AM RADIOACTIVITY TECHNICIAN): - reviewed how to measure and administer vaginal estrogen - she will start using vaginal estrogen twice per week halfway (current) use of antithrombotics/antip latelets 03/10/2021 Incisional hernia, without obstruction or gangre ne 07/30/2020 Overview (07/30/2020): Added automatically from request for surgery [id number] Sensorineural hearing loss, asymmetrical 019 Essential hypertension [...] 3:01 PM CDT): Follows closely with her master ship/transplant team. Labs last week showed improvement in [...] TID per Dr. 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 [address] [place] [address] Discharge Disposition: Discharge to home or self care 03/06/2025 10:10 AM CDT - 03/06/2025 11:59 PM CDT Hospital Encounter [facility] [address] [place] [address] Discharge Disposition: Discharge to home or self care 03/06/2025 Telephone [facility] Cardiology [address] [place] [address] Advanced Medicine 8th [place] [address] [place] [address] Jaimie Freire NP ABX 03/05/2025 1:00 PM CDT Office Visit [facility] Cardiology [address] [place] [address] Medical Office Building 3 [address] [place] [address] Jaimie Freire NP S/P mitral valve clip implantation (Primary Dx); Nonrheumatic tricuspid valve regurgitation; Coronary artery disease involving kenaitze coronary artery of kenaitze heart without angina pectoris; Primary hypertension; History of kidney transplant 03/05/2025 11:30 AM CDT Ancillary Procedure [facility] [address] [facility] [address] [place] [address] S/P mitral valve clip implantation 03/05/2025 Telephone [facility] [address] [facility] Medical Office Building [address] [place] [address] Chelsey Alejandra CMA 03/03/2025 9:49 AM CDT - 03/03/2025 11:59 PM CDT Hospital Encounter [facility] [address] [place] [address] Kidney replaced by transplant; Encounter for long-term (current) use of medications Discharge Disposition: Discharge to home or self care 02/28/2025 10:30 AM CDT Office Visit [facility] Nephrology [address] [place] [address] 5th [place] [address] [place] [address] Encounter for aftercare following kidney transplant (Primary Dx); Encounter for long-term current use of high risk medication; Primary hypertension; Anemia in chronic kidney disease, unspecified CKD stage; NICM (nonischemic cardiomyopathy) (HCC); Mitral regurgitation, acute; Renal osteodystrophy; S/P parathyroidectomy; Osteoporosis, unspecified osteoporosis type, unspecified pathological fracture presence 02/27/2025 10:10 AM CDT - 02/27/2025 11:59 PM CDT Hospital Encounter [facility] [address] [place] [address] Discharge Disposition: Discharge to home or self care 02/27/2025 Telephone [facility] Transplant Kidney [address] [facility] [address] Mailstop [phone] [place] [address] Lo Arenas RN 02/24/2025 10:00 AM CDT - 02/24/2025 11:59 PM CDT Hospital Encounter [facility] [address] [place] [address] Discharge Disposition: Discharge to home or self care 02/21/2025 Telephone [facility] Transplant Kidney [address] [facility] [address] Mailstop [phone] [place] [address] Paty Adams 02/20/2025 10:20 AM CDT - 02/20/2025 11:59 PM CDT Hospital Encounter [facility] [address] [place] [address] Kidney replaced by transplant; Encounter for long-term (current) use of medications Discharge Disposition: Discharge to home or self care 02/17/2025 10:45 AM CDT Office Visit [facility] Nephrology [address] [facility] 5th [place] [address] [place] [address] Sarahi Turner MD Encounter for aftercare following kidney transplant (Primary Dx); High risk medication use; At high risk for infection; Hypertension, unspecified type 02/17/2025 10:01 AM CDT - 02/17/2025 11:59 PM CDT Hospital Encounter [facility] [address] [place] [address] Discharge Disposition: Discharge to home or self care 02/14/2025 Telephone [facility]ney [address] [facility] 340 Mailstop [phone] [place] [address] Gely Gold 02/13/2025 1:09 PM CDT - 02/13/2025 11:59 PM CDT Hospital Encounter [facility] [address] [place] [address] Discharge Disposition: Discharge to home or self care 02/13/2025 Telephone [facility] [place] [address] Nidhi Stewart [facility] 02/10/2025 10:24 AM CDT - 02/10/2025 11:59 PM CDT Hospital Encounter [facility] [address] [place] [address] Discharge Disposition: Discharge to home or self care 02/07/2025 Telephone [facility] Cardiology [address] [facility] 8th [place] [address] [place] [address] Bryan English MD 02/07/2025 Orders Only [facility] [address] [facility] [address] Mailstop [phone] [place] [address] Heron Guajardo Kidney replaced by transplant (Primary Dx); Encounter for long-term (current) use of medications 02/07/2025 Telephone [facility] [address] [facility] [address] Mailstop [phone] [place] [address] Paty Adams 02/06/2025 Telephone [facility] [address] [facility] [address] Mailstop [phone] [place] [address] Heron Guajardo 01/31/2025 Orders Only [facility] [address] [facility] [address] Mailstop [phone] [place] [address] Lo Arenas RN Kidney replaced by transplant (Primary Dx) 01/28/2025 12:00 PM CDT Ancillary Procedure [facility] Vascular [facility] IP 1 [facility] [address] [place] [address] 01/28/2025 Telephone [facility] Cardiology [facility] Advanced Medicine 8th [place] [address] [place] [address] Bryan English MD 01/28/2025 Telephone [facility] [address] [facility] Advanced Medicine 8th [place] [address] [place] [address] Renny Villanueva 01/27/2025 8:40 AM CDT Anesthesia Event [facility] 1 [place] [address] Sascha Yi MD Deibel, Lori, NP 01/27/2025 8:30 AM CDT - 01/27/2025 11:50 AM CDT Surgery [facility] 1 [place] [address] Bryan English MD MITRAL VALVE REPAIR WITH CLIP, (1ST CLIP) [id number] 01/27/2025 Telephone [facility] Surgery [address] [facility] Floor 5 [place] [address] Danna Cortes MA 01/23/2025 Orders Only [facility] Scanning, Provider 01/21/2025 Telephone [facility] [address] [facility] Medical Office Building [address] [place] [address] Sloane Covarrubias RN 01/20/2025 10:55 AM CDT - 01/20/2025 12:10 PM CDT Surgery [facility] [place] 1 [place] [address] Bunny Islas MD PhD RIGHT HEART CATHETERIZATION [id number] 01/15/2025 10:53 AM CDT Anesthesia Event [facility] [place] 1 [place] [phone] Caitlin Gastelum MD 01/15/2025 Documentation [facility] [address] [facility] Advanced Medicine 8th [place] [address] [place] [phone] Melody Hernández MD 01/11/2025 9:15 PM RADIOACTIVITY TECHNICIAN - 02/04/2025 1:40 PM CDT Hospital Encounter [address] [phone] Bunny Islas MD PhD Manuel, MD Yohannes Maldonado, MD Roberto Rogel Jaspur Min, MD Kachroo, Puja, MD Mitral regurgitation, acute (Primary Dx); Urinary retention; S/P mitral valve clip implantation; History of renal transplant; MGUS (monoclonal gammopathy of unknown significance); Hyperkalemia; Hyponatremia Discharge Disposition: Discharge to home, home health skilled care 01/08/2025 Telephone [facility] [address] [facility] [address] Mailstop [phone] [place] [address] Lo Arenas ERIKA 01/06/2025 TCC Initial Eligibility Review [facility] [address] [place] [address] Preeti Mon NP 01/06/2025 Orders Only [facility] [address] [facility] [address] [place] [address] Kimberly Gardner MD Urinary tract infection without hematuria, site unspecified (Primary Dx) 01/02/2025 Telephone [facility] Transplant Kidney [address] [facility] [address] Mailstop [phone] [place] [address] Darleen Coughlin 12/26/2024 12:18 PM RADIOACTIVITY TECHNICIAN - 01/11/2025 8:25 PM RADIOACTIVITY TECHNICIAN Hospital Encounter [facility] 5 Med Surg 1404 [place] [address] Robbie Shearer DO Smith, Thomas Hamilton, MD Altwal, MD Nile Becerra, Joseph Nicolas MD [place] associated with disorder of kidney (Primary Dx); BRAYDEN (acute kidney injury); Acute cystitis without hematuria; Hyponatremia; History of renal transplant; Urinary tract infection without hematuria, site unspecified; Urinary retention Discharge Disposition: Discharge to a short term hospital for IP 12/26/2024 Telephone [facility] Transplant Kidney [address] [facility] [address] Mailstop [phone] [place] [address] Lo Arenas, ERIKA 12/26/2024 Telephone [facility] Transplant Kidney [address] [facility] [address] Mailstop 90-06-111 [place] [address] Gely Gold 12/25/2024 Orders Only [facility] Nephrology [address] [facility] 5th [place] [address] [place] [address] Sarahi Turner MD 12/23/2024 Telephone [facility] Transplant Kidney [address] [facility] [address] Mailstop [phone] [place] [address] Lo Arenas RN from Last 3 Months Immunizations Immunization Administration Dates Next Due Influenza, Quadrivalent, Split, Intramuscular Influenza, Trivalent, Adjuvanted, Intramuscular 08/08/2018 Influenza, Trivalent, High D ose, Split, Preservative Free, Intramuscular 08/11/2017,08/17/2016 Influenza, Trivalent, IM (MDV) 08/11/2014,2012 Influenza, Unspecified 08/08/2018 Pneumococcal Conjugate PCV 13 08/11/2017 Pneumococcal Polysaccharide PPV23 09/07/1998 Tdap 12/28/2007 Surgical History Surgery Date Site/Laterality Comments CENTRAL LINE PLACEMENT > 5 YEARS 01/18/2014 N/A KIDNEY TRANSPLANT 11/06/2011 - 11/05/2012 PERITONEAL CATHETER INSERTION NEPHRECTOMY 11/06/1997 - 11/05/1998 Right PARATHYROIDECTOMY 11/06/2013 - 11/05/2014 INCISIONAL HERNIA REPAIR 11/06/2006 - 11/05/2007 CORONARY ARTERY BYPASS GRAFT 11/06/2017 - 11/05/2018 CHOLECYSTECTOMY 11/06/1988 - 11/05/1989 CORONARY ANGIOPLASTY WITH STENT PLACEMENT INCISIONAL HERNIA REPAIR 03/15/2021 N/A open incis hr + awr w/mesh TOTAL ABDOMINAL HYSTERECTOMY W/ BILATERAL SALPINGOOPHORECTOMY 03/06/2021 - 04/05/2021 Bilateral w/ hernia repair & mesh CARDIAC DEFIBRILLATOR PLACEMENT 11/06/2009 - 11/05/2010 BREAST BIOPSY 04/24/2020 Right CARDIAC CATHETERIZATION 01/20/2025 N/A Procedure: RIGHT HEART CATHETERIZATION [id number]; Surgeon: Bunny Islas MD PhD; Location: [facility] CARDIAC IT RISK ADVISOR; Service: Cardiovascular; Laterality: N/A; CARDIAC CATHETERIZATION 01/27/2025 N/A Procedure: MITRAL VALVE REPAIR WITH CLIP, (1ST CLIP) [id number]; Surgeon: Bryan English MD; Location: [facility] EP LAB; Service: Cardiovascular; Laterality: N/A; Medical devices from this surgery are in the Medical Devices section. Medical History Medical History Date Comments CHF (congestive heart failure) (HCC) AK (myocardial infarction) (HCC) Kidney transplant status Gout Covid-19 09/20/2020 Renal cell carcinoma (HCC) CAD (coronary artery disease) Hx of CABG Pneumonia Neuropathy idiopathis, invo lves legs Hyponatremia 01/25/2025 Family History Medical History Relation Name Comments Arthritis Child 1 arthritis of hi p, knee, and back Arthritis Child 2 arthritis of ba ck and knees Sudden Cardiac Father Passed at 55 - Cardiac Arrest Heart failure Mother Family history of congestive heart failure - (Added by TW Conv) Anesthesia problems Neg Hx Hip fracture Neg Hx Osteoporosis Neg Hx Relation Name Status Comments Child 1 Alive Child 2 Alive Father Mother Social History Tobacco Use Types Packs/Day Years Used Date Smoking Tobacco: Never Smokeless Tobacco: Never Tobacco Cessation:Counseling Given: Not Answered Alcohol Use Standard Drinks/Week Comments Never 0 (1 standard drink = 0.6 oz pur e alcohol) [facility] Utilities Answer Date Recorded In the past 12 months has e electric, gas, oil, or water [employer] threatened to shut off services in your [...] 01/12/2025 How often do you attend chur ch or oriental orthodox services? More than 4 times per year 01/12/2025 Do you belong to any clubs o r organizations such as episcopal groups, unions, fraternal or athletic groups, or [...] money to buy more. Never true 01/13/20 Within the past 12 months, t he [...] any time in the past 12 m [facility], were you homeless or living in a residential (including now)? No 01/12/2025 Personal Safety Answer Date Recorded Have you ever been in or are you currently in a harmful physical or emotional relationship or is someone making you feel afraid or unsafe? 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 Not on file Not on file Not on fi le Obstetrics History Para Term AB IAB SAB Ectopic Multiple Livin g Live Births 3 3 3 3 3 Date Outcome GA Total Labor Labor/2nd/3rd Weight Sex Type Anes PTL Fang A1 A5 Name Clin Term Vag-S pont Living Term Vag-S pont Living Term Vag-S pont Living Comments x 3 Last Filed Vital Signs Vital Sign Reading [...] 03/05/2025 12:34 PM CDT Plan of Treatment Health Maintenance Due Date Last Done Comments Colon Cancer Screening-Colonoscopy 1950 Depression Screening 1949 Hepatitis B Screening 1967 Zoster Vaccine (1 of 2) 1968 Well Visit 65+ 2014 Pneumococcal vaccine 65+ (3 of 3 - PPSV23, PCV20 or PCV21) 10/06/2017 08/11/2017, 09/07/1998 Covid-19 Vaccine (4 - 2023-2 5 season) 2024 07/06/2021, 01/25/2021, 12/29/2020 Influenza Vaccine (Season Ended) 2025 08/06/2021, 07/17/2020, 08/12/2019, Additional history exists Fall Risk Assessment 02/04/2026 02/04/2025 Osteoporosis Screening-Bone Density Scan 09/04/2026 09/04/2024, 02/14/2024, 06/06/2023, Additional history exists DTaP/Tdap/Td Vaccine (3 - Td or Tdap) 05/18/2031 05/18/2021, 12/28/2007 Hepatitis C Screening Completed 05/24/2022 Breast Cancer Screening-Mammogram Discontinued 04/18/2023, 04/18/2023, 03/25/2022, Additional history exists Medical Devices Implanted Type Area Business Intelligence Administrator Device Identifier Shelf Expiration Date Model / Serial / Lot Lan Vascular Mitraclip G4 Xtw Cardiac Valve Clip [id number] - [id number] - [id number] Implanted:Qty: 1 on 01/27/2025 by Bryan English MD at [facility] Clip N/A: Mitral Valve Lan Vascular 07/03/2025 [id number] / [id number] / [id number] Medtronic Cardiac Rhythm Mgmt [id number] Visia Af Mri Df-4vr Connector Defibrillator 33cc 77gm Cardiac - [id number] - [id number] Implanted:Qty: 1 on 09/05/2018 by Fredy Ricks MD at [facility] ICD Left: Chest Medtronic Cardiac Rhythm Mgmt [id number] 05/19/2019 [id number] / [id number] / Medtronic Cardiac Rhythm Mgmt [id number] Sprint Quattro Secure S 55cm Df-4 Tripolar Screw Defibrillator - [id number] - [id number] Implanted:Qty: 1 on 09/05/2018 by Fredy Ricks MD at [facility] Lead Left: Vein Medtronic Cardiac Rhythm Mgmt 05/15/2020 [id number] / [id number] / Davol Inc/C R Bard [id number] Bard [id number] Monofilament Soft Lightweight Low Profile Square - [id number] Implanted:Qty: 1 on 03/15/2021 by Bunny Hoyos MD at [facility] Mesh Abdomen [employer]ol Inc/C R Bard [id number] 11/02/2025 [id number] / / Lan Vascular System Closure Repair Femoral Artery Suture Mediated Perclose Prostyle 40413-29 - [id number] - [id number] Implanted:Qty: 1 on 01/27/2025 by Adam Tong MD at [facility] Vascular Closure Device Right: Common Femoral Artery Lan Vascular 09/05/2026 43912-72 / [id number] / [id number] Terum[employer] Gladis Angio-Seal Vip 6fr Closere Device [id number] - [id number] - [id number] Implanted:Qty: 1 on 01/27/2025 by Adam Tong MD at [facility] Vascular Closure Device Left: Common Femoral Artery [employer] Gladis 08/30/2025 [id number] / [id number] / [id number] Medtronic Cardiac Rhythm Mgmt 5867-3m Capsure 4.6-8.4fr Bipolar Is-1 Connector Low Profile 3 Style - [id number] Implanted:Qty: 2 on 09/05/2018 by Fredy Ricks MD at [facility] Left: Chest Medtronic Cardiac Rhythm Mgmt [id number] 05/29/2022 5867-3M / / [id number] Medtronic Inc [id number] Tyrx 3.3x2.9in Large Envelope Absorbable Polyarylate Minocycline - [id number] Implanted:Qty: 1 on 09/05/2018 by Fredy Ricks MD at [facility] Left: Chest Medtronic Inc 09/05/2018 [id number] / / [id number] Description:Expiration date 09/05/2018 at midnight Medtronic Cardiac Rhythm Mgmt 5867-3m Capsure 4.6-8.4fr Bipolar Is-1 Connector Low Profile 3 Style - [id number] Implanted:Qty: 1 on 09/05/2018 by Fredy Ricks MD at [facility] Left: Chest Medtronic Cardiac Rhythm Mgmt [id number] 03/15/2022 5867-3M / / [id number] Lan Vascular Mitraclip Implant G4 System [id number] - [id number] Implanted:Qty: 1 on 01/27/2025 by Bryan English MD at [facility] N/A: Mitral Valve Lan Vascular [id number] / / Procedures Procedure Name Priority Date/Time [...] AM CDT SODIUM, WHOLE BLOOD Routine 02/04/2025 5:45 AM CDT EGFR Routine 02/03/2025 9:28 PM [...] WHOLE BLOOD Timed 01/31/2025 11:15 AM CDT RENAL TRANSPLANT W DOPPLERS IP Routine 01/31/2025 [...] AM CDT SODIUM, WHOLE BLOOD Routine 01/29/2025 5 :18 AM CDT EGFR Routine 01/28/2025 9:31 PM [...] CDT [facility]LIN [employer]UIDANCE DURING CARDIAC STRUCTURAL INTVN 56966 Routine 01/27/2025 12:21 PM CDT XR CHEST [...] LOW RANGE Routine 01/27/2025 9:49 AM CDT NM AN PROCEDURE PLACEHOLDER Routine 01/27/2025 9:28 AM CDT NM AN ELECTIVE ENDOTRACHEAL AIRWAY Routine 01/27/2025 9:28 [...] D 25 HYDROXY Timed 01/11/2025 11:13 PM RADIOACTIVITY TECHNICIAN HEMOGLOBIN A1C Timed 01/11/2025 11:13 PM RADIOACTIVITY TECHNICIAN EGFR Timed 01/11/2025 11:13 PM RADIOACTIVITY TECHNICIAN DIFFERENTIAL AUTO Timed 01/11/2025 11:13 PM RADIOACTIVITY TECHNICIAN PRO B-TYPE NATRIURETIC PEPTIDE Timed 01/11/2025 11:13 PM RADIOACTIVITY TECHNICIAN CBC WITH AUTO DIFFERENTIAL Timed 01/11/2025 11:13 PM RADIOACTIVITY TECHNICIAN PHOSPHORUS Timed 01/11/2025 11:13 PM RADIOACTIVITY TECHNICIAN MAGNESIUM Timed 01/11/2025 11:13 PM RADIOACTIVITY TECHNICIAN COMPREHENSIVE METABOLIC PANEL Timed 01/11/2025 11:13 PM RADIOACTIVITY TECHNICIAN ECG 12-LEAD Routine 01/11/2025 10:54 PM RADIOACTIVITY TECHNICIAN EGFR Routine 01/11/2025 8:17 AM RADIOACTIVITY TECHNICIAN RETICULOCYTES Routine 01/11/2025 8:17 AM RADIOACTIVITY TECHNICIAN CBC WITHOUT DIFFERENTIAL Routine 01/11/2025 8:17 AM RADIOACTIVITY TECHNICIAN COMPREHENSIVE METABOLIC PANEL Routine 01/11/2025 8:17 AM RADIOACTIVITY TECHNICIAN EGFR Routine 01/10/2025 5:05 AM RADIOACTIVITY TECHNICIAN CBC WITHOUT DIFFERENTIAL Routine 01/10/2025 5:05 AM RADIOACTIVITY TECHNICIAN COMPREHENSIVE METABOLIC PANEL Routine 01/10/2025 5:05 AM RADIOACTIVITY TECHNICIAN EGFR Routine 01/09/2025 5:17 AM RADIOACTIVITY TECHNICIAN CBC WITHOUT DIFFERENTIAL Routine 01/09/2025 5:17 AM RADIOACTIVITY TECHNICIAN COMPREHENSIVE METABOLIC PANEL Routine 01/09/2025 5:17 AM RADIOACTIVITY TECHNICIAN EGFR Routine 01/08/2025 5:25 AM RADIOACTIVITY TECHNICIAN CBC WITHOUT DIFFERENTIAL Routine 01/08/2025 5:25 AM RADIOACTIVITY TECHNICIAN COMPREHENSIVE METABOLIC PANEL Routine 01/08/2025 5:25 AM RADIOACTIVITY TECHNICIAN EGFR Routine 01/07/2025 5:16 AM RADIOACTIVITY TECHNICIAN CBC WITHOUT DIFFERENTIAL Routine 01/07/2025 5:16 AM RADIOACTIVITY TECHNICIAN COMPREHENSIVE METABOLIC PANEL Routine 01/07/2025 5:16 AM RADIOACTIVITY TECHNICIAN APTT Routine 01/06/2025 9:07 PM RADIOACTIVITY TECHNICIAN HEMOGLOBIN AND HEMATOCRIT Routine 01/06/2025 9:07 PM RADIOACTIVITY TECHNICIAN PROTIME-INR Routine 01/06/2025 9:07 PM RADIOACTIVITY TECHNICIAN EGFR Routine 01/06/2025 8:12 AM RADIOACTIVITY TECHNICIAN CBC WITHOUT DIFFERENTIAL Routine 01/06/2025 8:12 AM RADIOACTIVITY TECHNICIAN COMPREHENSIVE METABOLIC PANEL Routine 01/06/2025 8:12 AM RADIOACTIVITY TECHNICIAN EGFR Routine 01/05/2025 7:35 AM RADIOACTIVITY TECHNICIAN COMPREHENSIVE METABOLIC PANEL Routine 01/05/2025 7:35 AM RADIOACTIVITY TECHNICIAN EGFR Routine 01/04/2025 7:31 AM RADIOACTIVITY TECHNICIAN DIFFERENTIAL AUTO Routine 01/04/2025 7:3 1 AM RADIOACTIVITY TECHNICIAN CBC WITH AUTO DIFFERENTIAL Routine 01/04/2025 7:31 AM RADIOACTIVITY TECHNICIAN COMPREHENSIVE METABOLIC PANEL Routine 01/04/2025 7:31 AM RADIOACTIVITY TECHNICIAN EGFR Routine 01/03/2025 4:59 AM RADIOACTIVITY TECHNICIAN COMPREHENSIVE METABOLIC PANEL Routine 01/03/2025 4:59 AM RADIOACTIVITY TECHNICIAN MAGNESIUM Routine 01/02/2025 5:19 AM RADIOACTIVITY TECHNICIAN PHOSPHORUS Routine 01/02/2025 5:19 AM RADIOACTIVITY TECHNICIAN PRO B-TYPE NATRIURETIC PEPTIDE Routine 01/02/2025 5:19 AM RADIOACTIVITY TECHNICIAN EGFR Routine 01/02/2025 5:19 AM RADIOACTIVITY TECHNICIAN DIFFERENTIAL AUTO Routine 01/02/2025 5:1 9 AM RADIOACTIVITY TECHNICIAN CALCIUM, IONIZED Routine 01/02/2025 5:19 AM RADIOACTIVITY TECHNICIAN PTH Routine 01/02/2025 5:19 AM RADIOACTIVITY TECHNICIAN CBC WITH AUTO DIFFERENTIAL Routine 01/02/2025 5:19 AM RADIOACTIVITY TECHNICIAN VITAMIN B12 Routine 01/02/2025 5:19 AM RADIOACTIVITY TECHNICIAN IRON PROFILE W/ IBC Routine 01/02/2025 5 :19 AM RADIOACTIVITY TECHNICIAN COMPREHENSIVE METABOLIC PANEL Routine 01/02/2025 5:19 AM RADIOACTIVITY TECHNICIAN PRO B-TYPE NATRIURETIC PEPTIDE Routine 01/01/2025 5:13 PM RADIOACTIVITY TECHNICIAN XR CHEST PA LATERAL 2 VIEWS IP Routine 01/01/2025 1:07 PM RADIOACTIVITY TECHNICIAN ALBUMIN CREATININE RATIO, URINE Routine 01/01/2025 12:33 PM RADIOACTIVITY TECHNICIAN EGFR Routine 01/01/2025 5:26 AM RADIOACTIVITY TECHNICIAN COMPREHENSIVE METABOLIC PANEL Routine 01/01/2025 5:26 AM RADIOACTIVITY TECHNICIAN EGFR Routine 12/31/2024 5:17 AM RADIOACTIVITY TECHNICIAN DIFFERENTIAL AUTO Routine 12/31/2024 5:1 7 AM RADIOACTIVITY TECHNICIAN CBC WITH AUTO DIFFERENTIAL Routine 12/31/2024 5:17 AM RADIOACTIVITY TECHNICIAN COMPREHENSIVE METABOLIC PANEL Routine 12/31/2024 5:17 AM RADIOACTIVITY TECHNICIAN TRANSTHORACIC ECHO (TTE) LIMITED/FOLLOW UP W LTD DOPPLER/CF W CONTRAST Routine 12/30/2024 3:45 PM RADIOACTIVITY TECHNICIAN EGFR Routine 12/30/2024 9:55 AM RADIOACTIVITY TECHNICIAN COMPREHENSIVE METABOLIC PANEL Routine 12/30/2024 9:55 AM RADIOACTIVITY TECHNICIAN PRO B-TYPE NATRIURETIC PEPTIDE Routine 12/30/2024 9:55 AM RADIOACTIVITY TECHNICIAN TACROLIMUS LEVEL, TROUGH Timed 12/29/2024 8:15 AM RADIOACTIVITY TECHNICIAN EGFR Routine 12/29/2024 5:57 AM RADIOACTIVITY TECHNICIAN COMPREHENSIVE METABOLIC PANEL Routine 12/29/2024 5:57 AM RADIOACTIVITY TECHNICIAN PRO B-TYPE NATRIURETIC PEPTIDE Routine 12/29/2024 5:57 AM RADIOACTIVITY TECHNICIAN XR SHOULDER LEFT 2 OR MORE VIEWS IP Routine 12/28/2024 2:16 PM RADIOACTIVITY TECHNICIAN EGFR Routine 12/28/2024 1:56 AM RADIOACTIVITY TECHNICIAN COMPREHENSIVE METABOLIC PANEL Routine 12/28/2024 1:56 AM RADIOACTIVITY TECHNICIAN PRO B-TYPE NATRIURETIC PEPTIDE Routine 12/28/2024 1:56 AM RADIOACTIVITY TECHNICIAN TRANSTHORACIC ECHO (TTE) COMPLETE W DOPPLER/CF WO CONTRAST Routine 12/27/2024 9:06 AM RADIOACTIVITY TECHNICIAN EGFR Timed 12/27/2024 6:44 AM RADIOACTIVITY TECHNICIAN BASIC METABOLIC PANEL Timed 12/27/2024 6:44 AM RADIOACTIVITY TECHNICIAN EGFR Timed 12/27/2024 6:42 AM RADIOACTIVITY TECHNICIAN BASIC METABOLIC PANEL Timed 12/27/2024 6:42 AM RADIOACTIVITY TECHNICIAN SODIUM, URINE, RANDOM Routine 12/27/2024 6:29 AM RADIOACTIVITY TECHNICIAN OSMOLALITY, URINE Routine 12/27/2024 6:2 9 AM RADIOACTIVITY TECHNICIAN EGFR Routine 12/27/2024 5:24 AM RADIOACTIVITY TECHNICIAN OSMOLALITY, BLOOD Routine 12/27/2024 5:2 4 AM RADIOACTIVITY TECHNICIAN THYROID FUNCTION CASCADE Routine 12/27/2024 5:24 AM RADIOACTIVITY TECHNICIAN LIPID PANEL Routine 12/27/2024 5:24 AM RADIOACTIVITY TECHNICIAN PHOSPHORUS Routine 12/27/2024 5:24 AM RADIOACTIVITY TECHNICIAN MAGNESIUM Routine 12/27/2024 5:24 AM RADIOACTIVITY TECHNICIAN COMPREHENSIVE METABOLIC PANEL Routine 12/27/2024 5:24 AM RADIOACTIVITY TECHNICIAN US THYROID IP Routine 12/26/2024 10:19 PM RADIOACTIVITY TECHNICIAN MAGNESIUM Timed 12/26/2024 6:16 PM RADIOACTIVITY TECHNICIAN PHOSPHORUS Timed 12/26/2024 6:16 PM RADIOACTIVITY TECHNICIAN TROPONIN T HIGH-SENSITIVITY 6-HOUR Timed 12/26/2024 6:16 PM RADIOACTIVITY TECHNICIAN INFLUENZA A/B, RSV, AND COVID-19 PCR STAT 12/26/2024 6:13 PM RADIOACTIVITY TECHNICIAN TROPONIN T HIGH-SENSITIVITY 4-HR Timed 12/26/2024 4:46 PM RADIOACTIVITY TECHNICIAN URINALYSIS, MICROSCOPIC ONLY STAT 12/26/2024 2:44 PM RADIOACTIVITY TECHNICIAN URINE CULTURE Add-On 12/26/2024 2:44 PM RADIOACTIVITY TECHNICIAN URINALYSIS AND REFLEX TO MICROSCOPIC AND CULTURE STAT 12/26/2024 2:44 PM RADIOACTIVITY TECHNICIAN SEPSIS LACTATE WITH REFLEX STAT 12/26/2024 2:19 PM RADIOACTIVITY TECHNICIAN TROPONIN T HIGH-SENSITIVITY 2-HOUR Timed 12/26/2024 2:19 PM RADIOACTIVITY TECHNICIAN BLOOD CULTURE STAT 12/26/2024 2:19 PM RADIOACTIVITY TECHNICIAN BLOOD CULTURE STAT 12/26/2024 2:[address] CHEST ABDOMEN PELVIS WO CONTRAST ED 12/26/2024 1:58 PM RADIOACTIVITY TECHNICIAN XR CHEST 1 VIEW ED 12/26/2024 12:25 PM RADIOACTIVITY TECHNICIAN EGFR STAT 12/26/2024 12:14 PM RADIOACTIVITY TECHNICIAN DIFFERENTIAL AUTO STAT 12/26/2024 12:14 PM RADIOACTIVITY TECHNICIAN PRO B-TYPE NATRIURETIC PEPTIDE STAT 12/26/2024 12:14 PM RADIOACTIVITY TECHNICIAN TROPONIN T HIGH-SENSITIVITY SERIES (BASELINE, 2HR, 4HR, 6HR) STAT 12/26/2024 12:14 PM RADIOACTIVITY TECHNICIAN CBC WITH AUTO DIFFERENTIAL STAT 12/26/2024 12:14 PM RADIOACTIVITY TECHNICIAN COMPREHENSIVE METABOLIC PANEL STAT 12/26/2024 12:14 PM RADIOACTIVITY TECHNICIAN ECG 12-LEAD STAT 12/26/2024 12:13 PM RADIOACTIVITY TECHNICIAN TACROLIMUS, HIGHLY SENSITIVE, LC/MS/MS Routine 12/25/2024 10:27 AM RADIOACTIVITY TECHNICIAN RENAL FUNCTION PANEL Routine 12/25/2024 10:27 AM RADIOACTIVITY TECHNICIAN CBC WITH AUTO DIFFERENTIAL Routine 12/25/2024 10:27 AM RADIOACTIVITY TECHNICIAN COPY(IES) SENT TO: Routine 12/25/2024 10:27 AM RADIOACTIVITY TECHNICIAN COPY(IES) SENT TO: Routine 12/23/2024 1: 47 PM RADIOACTIVITY TECHNICIAN URINE CULTURE Routine 12/23/2024 1:47 PM RADIOACTIVITY TECHNICIAN REFLEXIVE URINE CULTURE Routine 12/23/2024 1:47 PM RADIOACTIVITY TECHNICIAN URINALYSIS AND REFLEX TO MICROSCOPIC AND CULTURE Routine 12/23/2024 1:47 PM RADIOACTIVITY TECHNICIAN Kidney replaced by transplant DEXA TBS AXIAL [...] was last reviewed 2021. Testing performed by: [address] [address] Blood 03/10/2025 9:00 AM CDT 03/10/2025 3:13 PM CDT us Sarahi Turner MD LAB BLOOD ORDERABLES Final Resu lt [facility] [address] [facility] [place] [address] * Differential, auto (03/10/2025 9:00 AM CDT) Neutrophil abs 3.89 1.50 - 6.50 K/cumm Comment:Testing performed by : [address] [address] Imm gran abs 0.04 0.00 - 0.10 K/cumm [facility] Comment:Testing performed by : [address] [address] Lymphocyte abs 1.63 0.80 - 3.30 K/cumm [facility]BE Comment:Testing performed by : [address] [address] Monocyte abs 0.54 0.20 - 0.80 K/cumm [facility]BE Comment:Testing performed by : [address] [address] Eosinophil abs 0.35 0.00 - 0.50 K/cumm [facility] Comment:Testing performed by : [address] [address] Basophil abs 0.02 0.00 - 0.10 K/cumm [facility] Comment:Testing performed by : [address] [address] Neutrophil pct 60.2 % [facility] Comment: Interpretive Data Percent cell count reference ranges are not reported, since discordance with absolute values may lead to misinterpretation of CBC data. Current Interpretive Data was last revised on 2018. Testing performed by: [address] [address] Imm gran pct 0.6 % [facility] Comment: Interpretive Data Percent cell count reference ranges are not reported, since discordance with absolute values may lead to misinterpretation of CBC data. Current Interpretive Data was last revised on 2018. Testing performed by: [address] [address] Lymphocyte pct 25.2 % [facility] Comment: Interpretive Data Percent cell count reference ranges are not reported, since discordance with absolute values may lead to misinterpretation of CBC data. Current Interpretive Data was last revised on 2018. Testing performed by: [address] [address] Monocyte pct 8.3 % [facility] Comment: Interpretive Data Percent cell count reference ranges are not reported, since discordance with absolute values may lead to misinterpretation of CBC data. Current Interpretive Data was last revised on 2018. Testing performed by: [address] [address] Eosinophil pct 5.4 % [facility] Comment: Interpretive Data Percent cell count reference ranges are not reported, since discordance with absolute values may lead to misinterpretation of CBC data. Current Interpretive Data was last revised on 2018. Testing performed by: [address] [address] Basophil pct 0.3 % [facility] Comment: Interpretive Data Percent cell count reference ranges are not reported, since discordance with absolute values may lead to misinterpretation of CBC data. Current Interpretive Data was last revised on 2018. Testing performed by: [address] [address] Blood 03/10/2025 9:00 AM CDT 03/10/2025 3:11 PM CDT us Sarahi Turner MD LAB BLOOD ORDERABLES Final Resu lt [facility] [address] [facility] Department [place] [address] * (ABNORMAL) CBC with auto differential (03/10/2025 9:00 AM CDT) [facility] WBC 6.47 3.80 - 9.90 K/cumm Comment:Testing performed by : [address], [address] Hgb 8.8(L) 11.9 - 15.5 g/dL [facility]BE Comment:Testing performed by : [address] [address] Hct 28.1(L) 35.6 - 45.5 % [facility] Comment:Testing performed by : [address] [address] Plt 103(L) 150 - 400 K/cumm [facility]BE Comment:Testing performed by : [address], [address] MPV 9.5 9.1 - 12.3 fL [facility] Comment:Testing performed by : [address], [address] RBC 2.76(L) 3.90 - 5.20 M/cumm [facility] Comment:Testing performed by : [address] [address] MCV 101.8(H) 81.3 - 96.4 fL [facility] Comment:Testing performed by : [address] [address] MCH 31.9 27.1 - 33.3 pg [facility] Comment:Testing performed by : [address] [address] MCHC 31.3(L) 32.3 - 35.7 g/dL [facility] Comment:Testing performed by : [address], [address] RDW CV 14.7 11.1 - 14.9 % [facility] Comment:Testing performed by : [address], [address] RDW SD 54.6(H) 35.7 - 48.1 fL [facility] Comment:Testing performed by : [address], [address] NRBC abs 0.00 0.00 - 0.01 K/cumm CERRITCHIE LOYA Comment:Testing performed by : [address] [address] Blood 03/10/2025 9:00 AM CDT 03/10/2025 3:11 PM CDT Sarahi Turner MD LAB BLOOD ORDERABLES Final Resu lt Performing Organization Address [facility] Co de Phone Number ABEBE [address] [address] * Tacrolimus level random (03/10/2025 9:00 AM CDT) Tacrolimus random 5.1 ng/mL Comment: Interpretive Data Testing performed by liquid chromatography-tandem mass spectrometry. Therapeutic concentrations vary depending on type of transplanted organ and time elapsed since transplant. Typical trough concentrations range from 5-15 ng/mL. This test was developed and its performance characteristics determined by the [facility] consistent with CLIA requirements. This test has not been cleared or approved by the [place] Food and Drug administration. Current interpretive data last reviewed 2020. Testing performed by: [facility], [address] [facility], [place]., [address] Blood 03/10/2025 9:00 AM CDT 03/10/2025 5:45 PM CDT Sarahi Turner MD LAB BLOOD ORDERABLES Final Resu lt Performing Organization Address [facility] Co de Phone Number [facility] [address] [facility] [place] [address] * (ABNORMAL) Renal function panel (03/10/2025 9:00 AM CDT) Sodium 139 135 - 145 mmol/L Comment:Testing performed by : [address] [address] Potassium, pl 4.1 3.3 - 4.9 mmol/L [facility] LOYA Comment:Testing performed by : [address] [address] Chloride 100 97 - 110 mmol/L [facility] LOYA Comment:Testing performed by : [address], [place]., [address] CO2 26 22 - 32 mmol/L [facility] Comment:Testing performed by : [address] [address] Anion gap 13 2 - 15 mmol/L [facility] Comment:Testing performed by : [address] [address] BUN 83(H) 6 - 25 mg/dL [facility] Comment:Testing performed by : [address], [place]., [address] Creatinine 2.30(H) 0.60 - 1.10 mg/dL [facility] Comment:Testing performed by : [address] [address] Glucose 68(L) 70 - 199 mg/dL ABEBE [...] was last revised 2022. Testing performed by: [address] [address] Calcium 8.4(L) 8.5 - 10.3 mg/dL [facility] Comment:Testing performed by : [address] [address] Phosphorus, pl 4.0 2.3 - 4.5 mg/dL [facility] Comment:Testing performed by : [address] [address] Albumin 3.5 3.5 - 5.0 g/dL [facility] Comment:Testing performed by : [address], [place]., [address] Blood 03/10/2025 9:00 AM CDT 03/10/2025 3:13 PM CDT Sarahi Turner MD LAB BLOOD ORDERABLES Final Resu lt Performing Organization Address [facility] Co de Phone Number [facility] [place] [address] * (ABNORMAL) eGFR (03/06/2025 10:00 AM CDT) [...] was last reviewed 2021. Testing performed by: [facility], [address] [place] [address]., [address] Blood 03/06/2025 10:0 0 AM CDT 03/06/2025 11:57 AM CDT Sarahi Turner MD LAB BLOOD ORDERABLES Final Resu lt Performing Organization Address City/[facility]/ZIP Co de Phone Number [facility] [place] [address] * Differential, auto (03/06/2025 10:00 AM CDT) Neutrophil abs 3.17 1.50 - 6.50 K/cumm Comment:Testing performed by : [address] [address] Imm gran abs 0.04 0.00 - 0.10 K/cumm [facility] Comment:Testing performed by : [address] [address] Lymphocyte abs 1.47 0.80 - 3.30 K/cumm [facility] Comment:Testing performed by : [address] [address] Monocyte abs 0.62 0.20 - 0.80 K/cumm [facility] Comment:Testing performed by : [address], [place]., [address] Eosinophil abs 0.28 0.00 - 0.50 K/cumm [facility] Comment:Testing performed by : [address] [address] Basophil abs 0.02 0.00 - 0.10 K/cumm [facility] Comment:Testing performed by : [address] [address] Neutrophil pct 56.5 % [facility] Comment: Interpretive Data Percent cell count reference ranges are not reported, since discordance with absolute values may lead to misinterpretation of CBC data. Current Interpretive Data was last revised on 2018. Testing performed by: [address] [address] Imm gran pct 0.7 % [facility] Comment: Interpretive Data Percent cell count reference ranges are not reported, since discordance with absolute values may lead to misinterpretation of CBC data. Current Interpretive Data was last revised on 2018. Testing performed by: [address] [address] Lymphocyte pct 26.3 % [facility] Comment: Interpretive Data Percent cell count reference ranges are not reported, since discordance with absolute values may lead to misinterpretation of CBC data. Current Interpretive Data was last revised on 2018. Testing performed by: [address] [address] Monocyte pct 11.1 % [facility] Comment: Interpretive Data Percent cell count reference ranges are not reported, since discordance with absolute values may lead to misinterpretation of CBC data. Current Interpretive Data was last revised on 2018. Testing performed by: [address] [address] Eosinophil pct 5.0 % [facility] Comment: Interpretive Data Percent cell count reference ranges are not reported, since discordance with absolute values may lead to misinterpretation of CBC data. Current Interpretive Data was last revised on 2018. Testing performed by: [address] [address] Basophil pct 0.4 % [facility] Comment: Interpretive Data Percent cell count reference ranges are not reported, since discordance with absolute values may lead to misinterpretation of CBC data. Current Interpretive Data was last revised on 2018. Testing performed by: [address] [address] Blood 03/06/2025 10:0 0 AM CDT 03/06/2025 11:56 AM CDT Sarahi Turner MD LAB BLOOD ORDERABLES Final Resu lt [facility] [address] [facility] Department [place] [address] * Tacrolimus level trough (03/06/2025 10:00 AM CDT) [facility] Tacrolimus trough 5.4 ng/mL Comment: Interpretive Data Testing performed by liquid chromatography-tandem mass spectrometry. Therapeutic concentrations vary depending on type of transplanted organ and time elapsed since transplant. Typical trough concentrations range from 5-15 ng/mL. This test was developed and its performance characteristics determined by the [facility] consistent with CLIA requirements. This test has not been cleared or approved by the [place] Food and Drug administration. Current interpretive data last reviewed 2020. Testing performed by: [facility], [address] [facility] [place] [address] Blood 03/06/2025 10:0 0 AM CDT 03/06/2025 3:04 PM CDT us Sarahi Turner MD LAB BLOOD ORDERABLES [facility] [address] [facility] Department [place] [address] * (ABNORMAL) CBC with auto differential (03/06/2025 10:00 AM CDT) WBC 5.60 3.80 - 9.90 K/cumm Comment:Testing performed by : [address] [address] Hgb 8.8(L) 11.9 - 15.5 g/dL [facility] Comment:Testing performed by : [address] [address] Hct 29.0(L) 35.6 - 45.5 % [facility] Comment:Testing performed by : [address] [address] Plt 108(L) 150 - 400 K/cumm [facility] Comment:Testing performed by : [address] [address] MPV 9.3 9.1 - 12.3 fL [facility] Comment:Testing performed by : [address] [address] RBC 2.85(L) 3.90 - 5.20 M/cumm [facility] Comment:Testing performed by : [address] [address] MCV 101.8(H) 81.3 - 96.4 fL [facility] Comment:Testing performed by : [address] [address] MCH 30.9 27.1 - 33.3 pg [facility] Comment:Testing performed by : [address] [address] MCHC 30.3(L) 32.3 - 35.7 g/dL [facility] Comment:Testing performed by : [address] [address] RDW CV 14.6 11.1 - 14.9 % [facility] Comment:Testing performed by : [address] [address] RDW SD 54.6(H) 35.7 - 48.1 fL [facility] Comment:Testing performed by : [address] [address] NRBC abs 0.00 0.00 - 0.01 K/cumm [facility] Comment:Testing performed by : [address] [address] Blood 03/06/2025 10:0 0 AM CDT 03/06/2025 11:56 AM CDT us Sarahi Turner MD LAB BLOOD ORDERABLES Final Resu lt [facility] [facility] Department [place] [address] * (ABNORMAL) Renal function panel (03/06/2025 10:00 AM CDT) Sodium 140 135 - 145 mmol/L Comment:Testing performed by : [address] [address] Potassium, pl 4.1 3.3 - 4.9 mmol/L [facility] LOYA Comment:Testing performed by : [address] [address] Chloride 102 97 - 110 mmol/L [facility] LOYA Comment:Testing performed by : [address] [address] CO2 27 22 - 32 mmol/L [facility] Comment:Testing performed by : [address] [address] Anion gap 11 2 - 15 mmol/L [facility] Comment:Testing performed by : [address] [address] BUN 87(H) 6 - 25 mg/dL [facility] LOYA Comment:Testing performed by : [address] [address] Creatinine 2.30(H) 0.60 - 1.10 mg/dL [facility] LOYA Comment:Testing performed by : [address] [address] Glucose 78 70 - 199 mg/dL ABEBE [...] was last revised 2022. Testing performed by: [address] [address] Calcium 8.9 8.5 - 10.3 mg/dL [facility] Comment:Testing performed by : [address] [address] Phosphorus, pl 3.9 2.3 - 4.5 mg/dL [facility] Comment:Testing performed by : [address] [address] Albumin 3.6 3.5 - 5.0 g/dL [facility] Comment:Testing performed by : [address] [address] Blood 03/06/2025 10:0 0 AM CDT 03/06/2025 11:57 AM CDT us Sarahi Turner MD LAB BLOOD ORDERABLES Final Resu lt [facility] [address] [facility] [place] [address] * TRANSTHORACIC ECHO (TTE) COMPLETE W DOPPLER/CF W CONTRAST (03/05/2025 12:12 PM CDT) EF Mod BP 53 % CONS SCIMAGE Anatomical Region Laterality Modality Ultrasound 03/05/2025 11:2 5 AM CDT Narrative 03/06/2025 7:06 AM CDT Heart [facility] Cardiac Diagnostic Lab [address] , [address] [place] [address] Transthoracic Echocardiographic Report Patient Name: NEGRITA LINCOLN C : 1950 (74y 3m) Gender: F Study Date: 03/05/2025 11:25:11 AM Ht(Inch): 64 Wt(Lb): 158.95 BSA: 1.8 Uranium Processing Supervisor: Luna Bangura, TERI, RCCS Location: [facility] Order Provider: BRYAN ENGLISH BMI: 27.28 BP: [...] Procedure Note Boris Corona MD - 03/06/2025 [facility] Cardiac Diagnostic Lab [address], [address] [place] [address] Transthoracic Echocardiographic Report Patient Name: NEGRITA LINCOLN C : 1950 (74y 3m) Gender: F Study Date: 03/05/2025 11:25:11 AM Ht(Inch): 64 Wt(Lb): 158.95 BSA: 1.8 Uranium Processing Supervisor: Luna Bangura RDCS, [facility] Location: [facility] Order Provider:BRYAN ENGLISH BMI: 27.28 BP: 147/80 [...] [ 2.5 - 4.2 ] MV Decel Gjoz830.11 msec [ 104.00 - 258.00 ] TAPSE [...] Boris Corona MD 03/06/2025 7:05:40 AM CDT Bryan English MD CV ECHO PROCEDURES Final Res ult * (ABNORMAL) eGFR (03/03/2025 9:30 AM CDT) eGFR 21(L) >=60 mL/min/1. 73 m2 Comment: [...] was last reviewed 2021. Testing performed by: [facility], [address] [place] [address]., [address] Blood 03/03/2025 9:30 AM CDT 03/03/2025 10:15 AM CDT us Stephanie Garcia MD LAB BLOOD ORDERABLE S Final Result [facility] [address] [facility] [place] [address] * Differential, auto (03/03/2025 9:30 AM CDT) Neutrophil abs 3.36 1.50 - 6.50 K/cumm Comment:Testing performed by : [address] [address] Imm gran abs 0.05 0.00 - 0.10 K/cumm [facility] Comment:Testing performed by : [address] [address] Lymphocyte abs 1.55 0.80 - 3.30 K/cumm [facility] Comment:Testing performed by : [address] [address] Monocyte abs 0.76 0.20 - 0.80 K/cumm [facility] Comment:Testing performed by : [address] [address] Eosinophil abs 0.29 0.00 - 0.50 K/cumm [facility] Comment:Testing performed by : [address] [address] Basophil abs 0.03 0.00 - 0.10 K/cumm [facility] Comment:Testing performed by : [address] [address] Neutrophil pct 55.6 % [facility] Comment: Interpretive Data Percent cell count reference ranges are not reported, since discordance with absolute values may lead to misinterpretation of CBC data. Current Interpretive Data was last revised on 2018. Testing performed by: [address] [address] Imm gran pct 0.8 % [facility] Comment: Interpretive Data Percent cell count reference ranges are not reported, since discordance with absolute values may lead to misinterpretation of CBC data. Current Interpretive Data was last revised on 2018. Testing performed by: [address] [address] Lymphocyte pct 25.7 % [facility] Comment: Interpretive Data Percent cell count reference ranges are not reported, since discordance with absolute values may lead to misinterpretation of CBC data. Current Interpretive Data was last revised on 2018. Testing performed by: [address] [address] Monocyte pct 12.6 % [facility] Comment: Interpretive Data Percent cell count reference ranges are not reported, since discordance with absolute values may lead to misinterpretation of CBC data. Current Interpretive Data was last revised on 2018. Testing performed by: [address] [address] Eosinophil pct 4.8 % [facility] Comment: Interpretive Data Percent cell count reference ranges are not reported, since discordance with absolute values may lead to misinterpretation of CBC data. Current Interpretive Data was last revised on 2018. Testing performed by: [address] [address] Basophil pct 0.5 % [facility] Comment: Interpretive Data Percent cell count reference ranges are not reported, since discordance with absolute values may lead to misinterpretation of CBC data. Current Interpretive Data was last revised on 2018. Testing performed by: [address] [address] Blood 03/03/2025 9:30 AM CDT 03/03/2025 10:15 AM CDT us Stephanie Garcia MD LAB BLOOD ORDERABLE S Final Result [facility] [address] [facility] [place] [address] * Tacrolimus level trough (03/03/2025 9:30 AM CDT) [facility] Tacrolimus trough 4.3 ng/mL Comment: Interpretive Data Testing performed by liquid chromatography-tandem mass spectrometry. Therapeutic concentrations vary depending on type of transplanted organ and time elapsed since transplant. Typical trough concentrations range from 5-15 ng/mL. This test was developed and its performance characteristics determined by the [facility] consistent with CLIA requirements. This test has not been cleared or approved by the [place] Food and Drug administration. Current interpretive data last reviewed 2020. Testing performed by: [facility], [address] [place]., [address] Blood 03/03/2025 9:30 AM CDT 03/03/2025 1:57 PM CDT us Stephanie Garcia MD LAB BLOOD ORDERABLE S Final Result ABEBE LOYA [address] [facility] Department [place] [address] * (ABNORMAL) CBC with auto differential (03/03/2025 9:30 AM CDT) Pathologist [facility] WBC 6.04 3.80 - 9.90 K/cumm Comment:Testing performed by : [address] [address] Hgb 8.7(L) 11.9 - 15.5 g/dL ABEBE LOYA Comment:Testing performed by : [address] [address] Hct 28.3(L) 35.6 - 45.5 % ABEBE LOYA Comment:Testing performed by : [address] [address] Plt 113(L) 150 - 400 K/cumm ABEBE LOYA Comment:Testing performed by : [address] [address] MPV 9.7 9.1 - 12.3 fL ABEBE LOYA Comment:Testing performed by : [address] [address] RBC 2.79(L) 3.90 - 5.20 M/cumm ABEBE LOYA Comment:Testing performed by : [address] [address] MCV 101.4(H) 81.3 - 96.4 fL ABEBE LOYA Comment:Testing performed by : [address] [address] MCH 31.2 27.1 - 33.3 pg ABEBE LOYA Comment:Testing performed by : [address] [address] MCHC 30.7(L) 32.3 - 35.7 g/dL ABEBE LOYA Comment:Testing performed by : [address] [address] RDW CV 14.8 11.1 - 14.9 % ABEBE LOYA Comment:Testing performed by : [address] [address] RDW SD 55.6(H) 35.7 - 48.1 fL ABEBE LOYA Comment:Testing performed by : [address] [address] NRBC abs 0.00 0.00 - 0.01 K/cumm ABEBE LOYA Comment:Testing performed by : [address] [address] Blood 03/03/2025 9:30 AM CDT 03/03/2025 10:15 AM CDT us Stephanie Garcia MD LAB BLOOD ORDERABLE S Final Result [facility] [address] [facility] Department [place] [address] * (ABNORMAL) Renal function panel (03/03/2025 9:30 AM CDT) Sodium 139 135 - 145 mmol/L Comment:Testing performed by : [address] [address] Potassium, pl 4.0 3.3 - 4.9 mmol/L ABEBE LOYA Comment:Testing performed by : [address], [address] Chloride 102 97 - 110 mmol/L ABEBE LOYA Comment:Testing performed by : [address] [place] [address] CO2 25 22 - 32 mmol/L ABEBE Comment:Testing performed by : [address] [address] Anion gap 12 2 - 15 mmol/L ABEBE Comment:Testing performed by : [address] [address] BUN 87(H) 6 - 25 mg/dL ABEBE Comment:Testing performed by : [address] [address] Creatinine 2.36(H) 0.60 - 1.10 mg/dL ABEBE Comment:Testing performed by : [address] [address] Glucose 83 70 - 199 mg/dL ABEBE [...] was last revised 2022. Testing performed by: [address] [address] Calcium 8.8 8.5 - 10.3 mg/dL ABEBE Comment:Testing performed by : [address] [address] Phosphorus, pl 3.7 2.3 - 4.5 mg/dL ABEBE Comment:Testing performed by : [address] [address] Albumin 3.5 3.5 - 5.0 g/dL ABEBE Comment:Testing performed by : [address] [address] Blood 03/03/2025 9:30 AM CDT 03/03/2025 10:15 AM CDT us Stephanie Garcia MD LAB BLOOD ORDERABLE S Final Result ABEBE [address] [facility] Department [place] [address] * (ABNORMAL) POCT urinalysis dipstick (02/28/2025 11:35 AM CDT) Glucose, ur, POC Negative Negative MG/DL Bilirubin, ur, POC Negative Negative, Small, Moderate, Large Ketones, ur, POC Negative Negative Specific Portal, POC 1.010 1.003 - 1.030 Blood, ur, POC Hemolyzed, trace(A) Negative pH, ur, POC 6.0 5.0 - 8.0 Protein, ur, POC 1+(A) Negative Urobilinogen, urine, POC 0.2 0.2 - 1.0 mg/dL Nitrite, ur, POC Negative Negative Leukocytes, ur, POC 1+(A) Negative Lot Number [id number] Urine 02/28/2025 11:3 5 AM CDT us Macario Sparks MD POINT OF CARE TEST GAVIN RABKELLY Final Result * (ABNORMAL) eGFR (02/27/2025 9:15 AM CDT) eGFR 19(L) >=60 mL/min/1. 73 [...] was last reviewed 2021. Testing performed by: [address] [address] Blood 02/27/2025 9:15 AM CDT 02/27/2025 10:56 AM CDT us Sarahi Turner MD LAB BLOOD ORDERABLES Final Resu lt [facility] [address] [facility] Department [place] [address] * Differential, auto (02/27/2025 9:15 AM CDT) Neutrophil abs 3.55 1.50 - 6.50 K/cumm Comment:Testing performed by : [address] [address] Imm gran abs 0.03 0.00 - 0.10 K/cumm ABEBE Comment:Testing performed by : [address] [address] Lymphocyte abs 1.46 0.80 - 3.30 K/cumm ABEBE Comment:Testing performed by : [address] [address] Monocyte abs 0.74 0.20 - 0.80 K/cumm ABEBE Comment:Testing performed by : [address] [address] Eosinophil abs 0.27 0.00 - 0.50 K/cumm ABEBE Comment:Testing performed by : [address] [address] Basophil abs 0.03 0.00 - 0.10 K/cumm ABEBE Comment:Testing performed by : [address] [address] Neutrophil pct 58.4 % ABEBE Comment: Interpretive Data Percent cell count reference ranges are not reported, since discordance with absolute values may lead to misinterpretation of CBC data. Current Interpretive Data was last revised on 2018. Testing performed by: [address] [address] Imm gran pct 0.5 % [facility] Comment: Interpretive Data Percent cell count reference ranges are not reported, since discordance with absolute values may lead to misinterpretation of CBC data. Current Interpretive Data was last revised on 2018. Testing performed by: [address] [address] Lymphocyte pct 24.0 % [facility] Comment: Interpretive Data Percent cell count reference ranges are not reported, since discordance with absolute values may lead to misinterpretation of CBC data. Current Interpretive Data was last revised on 2018. Testing performed by: [address] [address] Monocyte pct 12.2 % [facility] Comment: Interpretive Data Percent cell count reference ranges are not reported, since discordance with absolute values may lead to misinterpretation of CBC data. Current Interpretive Data was last revised on 2018. Testing performed by: [address] [address] Eosinophil pct 4.4 % [facility] Comment: Interpretive Data Percent cell count reference ranges are not reported, since discordance with absolute values may lead to misinterpretation of CBC data. Current Interpretive Data was last revised on 2018. Testing performed by: [address] [address] Basophil pct 0.5 % [facility] Comment: Interpretive Data Percent cell count reference ranges are not reported, since discordance with absolute values may lead to misinterpretation of CBC data. Current Interpretive Data was last revised on 2018. Testing performed by: [address] [address] Blood 02/27/2025 9:15 AM CDT 02/27/2025 10:55 AM CDT us Sarahi Turner MD LAB BLOOD ORDERABLES Final Resu lt ABEBE [address] [facility] Department [place] [address] * Tacrolimus level trough (02/27/2025 9:15 AM CDT) Pathologist [facility] Tacrolimus trough 4.3 ng/mL Comment: Interpretive Data Testing performed by liquid chromatography-tandem mass spectrometry. Therapeutic concentrations vary depending on type of transplanted organ and time elapsed since transplant. Typical trough concentrations range from 5-15 ng/mL. This test was developed and its performance characteristics determined by the [facility] consistent with CLIA requirements. This test has not been cleared or approved by the [place] Food and Drug administration. Current interpretive data last reviewed 2020. Testing performed by: [facility], [address] [facility], [place]., [address] Blood 02/27/2025 9:15 AM CDT 02/27/2025 1:32 PM CDT us Sarahi Turner MD LAB BLOOD ORDERABLES Final Resu lt Performing Organization Address City/State/[facility] Co de Phone Number ABEBE LOYA [facility] [facility] Department [place] [address] * (ABNORMAL) CBC with auto differential (02/27/2025 9:15 AM CDT) [facility] WBC 6.08 3.80 - 9.90 K/cumm Comment:Testing performed by : [address] [address] Hgb 9.1(L) 11.9 - 15.5 g/dL ABEBE LOYA Comment:Testing performed by : [address] [address] Hct 29.2(L) 35.6 - 45.5 % ABEBE LOYA Comment:Testing performed by : [address] [address] Plt 121(L) 150 - 400 K/cumm ABEBE LOYA Comment:Testing performed by : [address] [address] MPV 9.3 9.1 - 12.3 fL ABEBE LOYA Comment:Testing performed by : [address] [address] RBC 2.87(L) 3.90 - 5.20 M/cumm ABEBE Comment:Testing performed by : [address] [address] MCV 101.7(H) 81.3 - 96.4 fL ABEBE Comment:Testing performed by : [address] [address] MCH 31.7 27.1 - 33.3 pg ABEBE Comment:Testing performed by : [address] [address] MCHC 31.2(L) 32.3 - 35.7 g/dL ABEBE Comment:Testing performed by : [address], [address] RDW CV 15.1(H) 11.1 - 14.9 % ABEBE Comment:Testing performed by : [address] [address] RDW SD 56.6(H) 35.7 - 48.1 fL ABEBE Comment:Testing performed by : [address] [address] NRBC abs 0.00 0.00 - 0.01 K/cumm ABEBE Comment:Testing performed by : [address] [address] Blood 02/27/2025 9:15 AM CDT 02/27/2025 10:55 AM CDT us Sarahi Turner MD LAB BLOOD ORDERABLES [facility] [address] [facility] Department [place] [address] * (ABNORMAL) Renal function panel (02/27/2025 9:15 AM CDT) Sodium 133(L) 135 - 145 mmol/L Comment:Testing performed by : [address], [address] Potassium, pl 4.2 3.3 - 4.9 mmol/L ABEBE Comment:Testing performed by : [address] [address] Chloride 95(L) 97 - 110 mmol/L ABEBE Comment:Testing performed by : [address] [address] CO2 26 22 - 32 mmol/L ABEBE Comment:Testing performed by : [address] [address] Anion gap 12 2 - 15 mmol/L ABEBE Comment:Testing performed by : [address] [address] BUN 94(H) 6 - 25 mg/dL ABEBE Comment:Testing performed by : [address] [address] Creatinine 2.60(H) 0.60 - 1.10 mg/dL ABEBE Comment:Testing performed by : [address] [address] Glucose 78 70 - 199 mg/dL ABEBE [...] was last revised 2022. Testing performed by: [address] [address] Calcium 8.2(L) 8.5 - 10.3 mg/dL ABEBE Comment:Testing performed by : [address] [address] Phosphorus, pl 4.1 2.3 - 4.5 mg/dL ABEBE Comment:Testing performed by : [address] [address] Albumin 3.4(L) 3.5 - 5.0 g/dL ABEBE Comment:Testing performed by : [address] [address] Blood 02/27/2025 9:15 AM CDT 02/27/2025 10:56 AM CDT Sarahi Turner MD LAB BLOOD ORDERABLES Final Resu lt Performing Organization Address [facility] Co de Phone Number ABEBE [address] [place] [address] * (ABNORMAL) eGFR (02/24/2025 9:45 AM CDT) [...] was last reviewed 2021. Testing performed by: [facility], [address] [place] [address]., [address] Blood 02/24/2025 9:45 AM CDT 02/24/2025 10:11 AM CDT Sarahi Turner MD LAB BLOOD ORDERABLES Final Resu lt Performing Organization Address [facility] Co de Phone Number ABEBE [facility]0 [facility] [place] [address] * Differential, auto (02/24/2025 9:45 AM CDT) [facility] Neutrophil abs 3.63 1.50 - 6.50 K/cumm Comment:Testing performed by : [address] [address] Imm gran abs 0.05 0.00 - 0.10 K/cumm [facility] [place] Comment:Testing performed by : [address] [address] Lymphocyte abs 1.49 0.80 - 3.30 K/cumm [facility] [place] Comment:Testing performed by : [address] [address] Monocyte abs 0.80 0.20 - 0.80 K/cumm [facility] Comment:Testing performed by : [address] [address] Eosinophil abs 0.25 0.00 - 0.50 K/cumm [facility] Comment:Testing performed by : [address] [address] Basophil abs 0.03 0.00 - 0.10 K/cumm [facility] Comment:Testing performed by : [address] [address] Neutrophil pct 58.1 % [facility] Comment: Interpretive Data Percent cell count reference ranges are not reported, since discordance with absolute values may lead to misinterpretation of CBC data. Current Interpretive Data was last revised on 2018. Testing performed by: [address] [address] Imm gran pct 0.8 % [facility] Comment: Interpretive Data Percent cell count reference ranges are not reported, since discordance with absolute values may lead to misinterpretation of CBC data. Current Interpretive Data was last revised on 2018. Testing performed by: [address] [address] Lymphocyte pct 23.8 % [facility] [place] Comment: Interpretive Data Percent cell count reference ranges are not reported, since discordance with absolute values may lead to misinterpretation of CBC data. Current Interpretive Data was last revised on 2018. Testing performed by: [address] [address] Monocyte pct 12.8 % [facility] Comment: Interpretive Data Percent cell count reference ranges are not reported, since discordance with absolute values may lead to misinterpretation of CBC data. Current Interpretive Data was last revised on 2018. Testing performed by: [address] [address] Eosinophil pct 4.0 % ABEBE Comment: Interpretive Data Percent cell count reference ranges are not reported, since discordance with absolute values may lead to misinterpretation of CBC data. Current Interpretive Data was last revised on 2018. Testing performed by: [address] [address] Basophil pct 0.5 % ABEBE Comment: Interpretive Data Percent cell count reference ranges are not reported, since discordance with absolute values may lead to misinterpretation of CBC data. Current Interpretive Data was last revised on 2018. Testing performed by: [address] [address] Blood 02/24/2025 9:45 AM CDT 02/24/2025 10:10 AM CDT us Sarahi Turner MD LAB BLOOD ORDERABLES Final Resu lt ABEBE [address] [facility] Department [place] [address] * Tacrolimus level trough (02/24/2025 9:45 AM CDT) Pathologist [facility] Tacrolimus trough 5.0 ng/mL Comment: Interpretive Data Testing performed by liquid chromatography-tandem mass spectrometry. Therapeutic concentrations vary depending on type of transplanted organ and time elapsed since transplant. Typical trough concentrations range from 5-15 ng/mL. This test was developed and its performance characteristics determined by the [facility] consistent with CLIA requirements. This test has not been cleared or approved by the [place] Food and Drug administration. Current interpretive data last reviewed 2020. Testing performed by: [facility], [address] [facility], [place]., [address] Blood 02/24/2025 9:45 AM CDT 02/24/2025 1:30 PM CDT us Sarahi Turner MD LAB BLOOD ORDERABLES Final Resu lt ABEBE [address] [facility] [place] [address] * (ABNORMAL) CBC with auto differential (02/24/2025 9:45 AM CDT) WBC 6.25 3.80 - 9.90 K/cumm Comment:Testing performed by : [address] [address] Hgb 8.6(L) 11.9 - 15.5 g/dL ABEBE Comment:Testing performed by : [address] [address] Hct 27.3(L) 35.6 - 45.5 % ABEBE Comment:Testing performed by : [address] [address] Plt 151 150 - 400 K/cumm ABEBE Comment:Testing performed by : [address] [address] MPV 9.0(L) 9.1 - 12.3 fL ABEBE Comment:Testing performed by : [address] [address] RBC 2.73(L) 3.90 - 5.20 M/cumm ABEBE Comment:Testing performed by : [address] [address] MCV 100.0(H) 81.3 - 96.4 fL ABEBE Comment:Testing performed by : [address] [address] MCH 31.5 27.1 - 33.3 pg ABEBE LOYA Comment:Testing performed by : [address] [address] MCHC 31.5(L) 32.3 - 35.7 g/dL ABEBE LOYA Comment:Testing performed by : [address] [address] RDW CV 15.2(H) 11.1 - 14.9 % ABEBE LOYA Comment:Testing performed by : [address] [address] RDW SD 56.2(H) 35.7 - 48.1 fL ABEBE LOYA Comment:Testing performed by : [address] [address] NRBC abs 0.00 0.00 - 0.01 K/cumm ABEBE Comment:Testing performed by : [address] [address] Blood 02/24/2025 9:45 AM CDT 02/24/2025 10:10 AM CDT us Sarahi Turner MD LAB BLOOD ORDERABLES Final Resu lt [facility]0 [facility] [place] [address] * (ABNORMAL) Renal function panel (02/24/2025 9:45 AM CDT) Sodium 134(L) 135 - 145 mmol/L Comment:Testing performed by : [address] [address] Potassium, pl 4.3 3.3 - 4.9 mmol/L ABEBE LOYA Comment:Testing performed by : [address] [address] Chloride 96(L) 97 - 110 mmol/L ABEBE Comment:Testing performed by : [address] [address] CO2 25 22 - 32 mmol/L ABEBE Comment:Testing performed by : [address] [address] Anion gap 13 2 - 15 mmol/L ABEBE LOYA Comment:Testing performed by : [address] [address] BUN 92(H) 6 - 25 mg/dL ABEBE LOYA Comment:Testing performed by : [address] [address] Creatinine 2.54(H) 0.60 - 1.10 mg/dL ABEBE Comment:Testing performed by : [address] [address] Glucose 85 70 - 199 mg/dL ABEBE Comment: Interpretive [...] was last revised 2022. Testing performed by: [address] [address] Calcium 8.0(L) 8.5 - 10.3 mg/dL ABEBE Comment:Testing performed by : [address] [address] Phosphorus, pl 4.6(H) 2.3 - 4.5 mg/dL ABEBE Comment:Testing performed by : [address] [address] Albumin 3.5 3.5 - 5.0 g/dL ABEBE Comment:Testing performed by : [address] [address] Blood 02/24/2025 9:45 AM CDT 02/24/2025 10:11 AM CDT us Sarahi Turner MD LAB BLOOD ORDERABLES Final Resu lt ABEBE [address] [facility] [place] [address] * (ABNORMAL) eGFR (02/20/2025 11:00 AM CDT) [...] was last reviewed 2021. Testing performed by: [address] [address] Blood 02/20/2025 11:0 0 AM CDT 02/20/2025 11:21 AM CDT us Stephanie Garcia MD LAB BLOOD ORDERABLE S Final Result [facility] [address] [facility] [place] [address] * Differential, auto (02/20/2025 11:00 AM CDT) Neutrophil abs 3.26 1.50 - 6.50 K/cumm Comment:Testing performed by : [address] [address] Imm gran abs 0.07 0.00 - 0.10 K/cumm ABEBE Comment:Testing performed by : [address] [address] Lymphocyte abs 1.81 0.80 - 3.30 K/cumm ABEBE Comment:Testing performed by : [address] [address] Monocyte abs 0.62 0.20 - 0.80 K/cumm ABEBE Comment:Testing performed by : [address] [address] Eosinophil abs 0.24 0.00 - 0.50 K/cumm [facility] Comment:Testing performed by : [address] [address] Basophil abs 0.04 0.00 - 0.10 K/cumm ABEBE Comment:Testing performed by : [address] [address] Neutrophil pct 53.8 % [facility] [place] Comment: Interpretive Data Percent cell count reference ranges are not reported, since discordance with absolute values may lead to misinterpretation of CBC data. Current Interpretive Data was last revised on 2018. Testing performed by: [address] [address] Imm gran pct 1.2 % [facility] Comment: Interpretive Data Percent cell count reference ranges are not reported, since discordance with absolute values may lead to misinterpretation of CBC data. Current Interpretive Data was last revised on 2018. Testing performed by: [address] [address] Lymphocyte pct 30.0 % [facility] Comment: Interpretive Data Percent cell count reference ranges are not reported, since discordance with absolute values may lead to misinterpretation of CBC data. Current Interpretive Data was last revised on 2018. Testing performed by: [address] [address] Monocyte pct 10.3 % [facility] [place] Comment: Interpretive Data Percent cell count reference ranges are not reported, since discordance with absolute values may lead to misinterpretation of CBC data. Current Interpretive Data was last revised on 2018. Testing performed by: [address] [address] Eosinophil pct 4.0 % [facility] [place] Comment: Interpretive Data Percent cell count reference ranges are not reported, since discordance with absolute values may lead to misinterpretation of CBC data. Current Interpretive Data was last revised on 2018. Testing performed by: [address] [address] Basophil pct 0.7 % [facility] [place] Comment: Interpretive Data Percent cell count reference ranges are not reported, since discordance with absolute values may lead to misinterpretation of CBC data. Current Interpretive Data was last revised on 2018. Testing performed by: [facility], [address] [place] [address]., [address] Blood 02/20/2025 11:0 0 AM CDT 02/20/2025 11:21 AM CDT Stephanie Garcia MD LAB BLOOD ORDERABLE S Final Result Performing Organization Address [facility] Co de Phone Number NINA[address] [place] [address] * Tacrolimus level trough (02/20/2025 11:00 AM CDT) Pathologist [facility] Tacrolimus trough 7.4 ng/mL Comment: Interpretive Data Testing performed by liquid chromatography-tandem mass spectrometry. Therapeutic concentrations vary depending on type of transplanted organ and time elapsed since transplant. Typical trough concentrations range from 5-15 ng/mL. This test was developed and its performance characteristics determined by the [facility] consistent with CLIA requirements. This test has not been cleared or approved by the [place] Food and Drug administration. Current interpretive data last reviewed 2020. Testing performed by: [facility], 1 [facility] [place]., [address] Blood 02/20/2025 11:0 0 AM CDT 02/20/2025 3:25 PM CDT us Stephanie Garcia MD LAB BLOOD ORDERABLE S Final Result Performing Organization Address [facility] Co de Phone Number [address] [place] [address] * (ABNORMAL) CBC with auto differential (02/20/2025 11:00 AM CDT) Pathologist [facility] WBC 6.04 3.80 - 9.90 K/cumm Comment:Testing performed by : [facility], [address] [place] [address]., [address] Hgb 8.4(L) 11.9 - 15.5 g/dL ABEBE Comment:Testing performed by : [address] [address] Hct 27.9(L) 35.6 - 45.5 % ABEBE Comment:Testing performed by : [address] [address] Plt 215 150 - 400 K/cumm ABEBE Comment:Testing performed by : [address] [address] MPV 9.0(L) 9.1 - 12.3 fL [facility] Comment:Testing performed by : [address] [address] RBC 2.72(L) 3.90 - 5.20 M/cumm ABEBE Comment:Testing performed by : [address] [address] MCV 102.6(H) 81.3 - 96.4 fL ABEBE Comment:Testing performed by : [address] [address] MCH 30.9 27.1 - 33.3 pg [facility] Comment:Testing performed by : [address] [address] MCHC 30.1(L) 32.3 - 35.7 g/dL ABEBE Comment:Testing performed by : [address] [address] RDW CV 15.3(H) 11.1 - 14.9 % ABEBE Comment:Testing performed by : [address] [address] RDW SD 57.5(H) 35.7 - 48.1 fL ABEBE Comment:Testing performed by : [address] [address] NRBC abs 0.00 0.00 - 0.01 K/cumm ABEBE Comment:Testing performed by : [address] [address] Blood 02/20/2025 11:0 0 AM CDT 02/20/2025 11:21 AM CDT us Stephanie Garcia MD LAB BLOOD ORDERABLE S Final Result [facility] [address] [facility] [place] [address] * (ABNORMAL) Renal function panel (02/20/2025 11:00 AM CDT) Sodium 135 135 - 145 mmol/L Comment:Testing performed by : [address] [address] Potassium, pl 4.4 3.3 - 4.9 mmol/L ABEBE Comment:Testing performed by : [address] [address] Chloride 98 97 - 110 mmol/L ABEBE Comment:Testing performed by : [address] [address] CO2 26 22 - 32 mmol/L ABEBE Comment:Testing performed by : [address] [address] Anion gap 11 2 - 15 mmol/L ABEBE Comment:Testing performed by : [address] [address] BUN 92(H) 6 - 25 mg/dL ABEBE Comment:Testing performed by : [address] [address] Creatinine 2.73(H) 0.60 - 1.10 mg/dL ABEBE Comment:Testing performed by : [address] [address] Glucose 79 70 - 199 mg/dL ABEBE [...] was last revised 2022. Testing performed by: [address] [address] Calcium 8.5 8.5 - 10.3 mg/dL ABEBE Comment:Testing performed by : [address] [address] Phosphorus, pl 4.2 2.3 - 4.5 mg/dL ABEBE Comment:Testing performed by : [address] [address] Albumin 3.6 3.5 - 5.0 g/dL ABEBE Comment:Testing performed by : [address] [address] Blood 02/20/2025 11:0 0 AM CDT 02/20/2025 11:21 AM CDT Stephanie Garcia MD LAB BLOOD ORDERABLE S Final Result ABEBE [address] [facility] Department of Laboratories [place], [place] [id number] * (ABNORMAL) POCT urinalysis dipstick (02/17/2025 11:53 AM CDT) [facility] Glucose, ur, POC Negative Negative MG/DL Bilirubin, ur, POC Negative Negative, Small, Moderate, Large Ketones, ur, POC Negative Negative Specific Portal, POC Comment:<=1.005 Blood, ur, POC Non-hemolyze d, trace(A) Negative pH, ur, POC 5.5 5.0 - 8.0 Protein, ur, POC 30.(A) Negative Urobilinogen, urine, POC 0.2 0.2 - 1.0 mg/dL Nitrite, ur, POC Negative Negative Leukocytes, ur, POC Small(A) Negative Lot Number [id number] Urine 02/17/2025 11:5 3 AM CDT Sarahi Turner MD POINT OF CARE TEST ORDERABLES F inal Result * (ABNORMAL) eGFR (02/17/2025 9:45 AM CDT) eGFR 20(L) >=60 mL/min/1. 73 [...] was last reviewed 2021. Testing performed by: [address] [address] Blood 02/17/2025 9:45 AM CDT 02/17/2025 1:06 PM CDT us Sarahi Turner MD LAB BLOOD ORDERABLES Final Resu lt ABEBE [address] [facility] [place] [address] * Differential, auto (02/17/2025 9:45 AM CDT) Pathologist [facility] Neutrophil abs 2.62 1.50 - 6.50 K/cumm Comment:Testing performed by : [address] [address] Imm gran abs 0.05 0.00 - 0.10 K/cumm ABEBE LOYA Comment:Testing performed by : [address] [address] Lymphocyte abs 1.48 0.80 - 3.30 K/cumm ABEBE LOYA Comment:Testing performed by : [address] [address] Monocyte abs 0.56 0.20 - 0.80 K/cumm ABEBE Comment:Testing performed by : [address], [place]., [address] Eosinophil abs 0.30 0.00 - 0.50 K/cumm ABEBE Comment:Testing performed by : [address], [place]., [address] Basophil abs 0.05 0.00 - 0.10 K/cumm [facility] Comment:Testing performed by : [address] [address] Neutrophil pct 51.8 % [facility] Comment: Interpretive Data Percent cell count reference ranges are not reported, since discordance with absolute values may lead to misinterpretation of CBC data. Current Interpretive Data was last revised on 2018. Testing performed by: [address] [address] Imm gran pct 1.0 % [facility] Comment: Interpretive Data Percent cell count reference ranges are not reported, since discordance with absolute values may lead to misinterpretation of CBC data. Current Interpretive Data was last revised on 2018. Testing performed by: [address] [address] Lymphocyte pct 29.2 % [facility] Comment: Interpretive Data Percent cell count reference ranges are not reported, since discordance with absolute values may lead to misinterpretation of CBC data. Current Interpretive Data was last revised on 2018. Testing performed by: [address] [address] Monocyte pct 11.1 % [facility] [place] Comment: Interpretive Data Percent cell count reference ranges are not reported, since discordance with absolute values may lead to misinterpretation of CBC data. Current Interpretive Data was last revised on 2018. Testing performed by: [address] [address] Eosinophil pct 5.9 % [facility] Comment: Interpretive Data Percent cell count reference ranges are not reported, since discordance with absolute values may lead to misinterpretation of CBC data. Current Interpretive Data was last revised on 2018. Testing performed by: [facility], [address] [place] [address]., [address] Basophil pct 1.0 % ABEBE Comment: Interpretive Data Percent cell count reference ranges are not reported, since discordance with absolute values may lead to misinterpretation of CBC data. Current Interpretive Data was last revised on 2018. Testing performed by: [facility], [address] [place] [address]., [address] Blood 02/17/2025 9:45 AM CDT 02/17/2025 1:05 PM CDT Sarahi Turner MD LAB BLOOD ORDERABLES Final Resu lt Performing Organization Address [facility] de Phone Number [place] [id number] [facility] [place] [address] * Tacrolimus level trough (02/17/2025 9:45 AM CDT) Pathologist [facility] Tacrolimus trough 6.0 ng/mL Comment: Interpretive Data Testing performed by liquid chromatography-tandem mass spectrometry. Therapeutic concentrations vary depending on type of transplanted organ and time elapsed since transplant. Typical trough concentrations range from 5-15 ng/mL. This test was developed and its performance characteristics determined by the [facility] consistent with CLIA requirements. This test has not been cleared or approved by the US Food and Drug administration. Current interpretive data last reviewed 2020. Testing performed by: [facility], [address] [facility] [place]., [address] Blood 02/17/2025 9:45 AM CDT 02/17/2025 3:28 PM CDT Sarahi Turner MD LAB BLOOD ORDERABLES Final Resu lt Performing Organization Address [facility] de Phone Number [facility] [address] [facility] Department [place] [address] * (ABNORMAL) CBC with auto differential (02/17/2025 9:45 AM CDT) [facility] WBC 5.06 3.80 - 9.90 K/cumm Comment:Testing performed by : [address] [address] Hgb 8.3(L) 11.9 - 15.5 g/dL ABEBE Comment:Testing performed by : [address] [address] Hct 27.7(L) 35.6 - 45.5 % ABEBE Comment:Testing performed by : [address] [address] Plt 234 150 - 400 K/cumm ABEBE Comment:Testing performed by : [address] [address] MPV 9.0(L) 9.1 - 12.3 fL ABEBE Comment:Testing performed by : [address] [address] RBC 2.69(L) 3.90 - 5.20 M/cumm ABEBE Comment:Testing performed by : [address] [address] MCV 103.0(H) 81.3 - 96.4 fL [facility] Comment:Testing performed by : [address] [address] MCH 30.9 27.1 - 33.3 pg ABEBE Comment:Testing performed by : [address] [address] MCHC 30.0(L) 32.3 - 35.7 g/dL ABEBE Comment:Testing performed by : [address] [address] RDW CV 15.6(H) 11.1 - 14.9 % ABEBE Comment:Testing performed by : [address] [address] RDW SD 58.9(H) 35.7 - 48.1 fL ABEBE Comment:Testing performed by : [address] [address] NRBC abs 0.00 0.00 - 0.01 K/cumm ABEBE Comment:Testing performed by : [address] [address] Blood 02/17/2025 9:45 AM CDT 02/17/2025 1:05 PM CDT us Sarahi Turner MD LAB BLOOD ORDERABLES Final Resu lt ABEBE [address] [facility] [place] [address] * (ABNORMAL) Renal function panel (02/17/2025 9:45 AM CDT) Sodium 140 135 - 145 mmol/L Comment:Testing performed by : [address] [address] Potassium, pl 4.1 3.3 - 4.9 mmol/L ABEBE Comment:Testing performed by : [address] [address] Chloride 100 97 - 110 mmol/L ABEBE Comment:Testing performed by : [address] [address] CO2 28 22 - 32 mmol/L ABEBE Comment:Testing performed by : [address] [address] Anion gap 12 2 - 15 mmol/L ABEBE Comment:Testing performed by : [address] [address] BUN 92(H) 6 - 25 mg/dL ABEBE Comment:Testing performed by : [address] [address] Creatinine 2.50(H) 0.60 - 1.10 mg/dL ABEBE Comment:Testing performed by : [address] [address] Glucose 78 70 - 199 mg/dL ABEBE [...] was last revised 2022. Testing performed by: [address] [address] Calcium 9.0 8.5 - 10.3 mg/dL ABEBE LOYA Comment:Testing performed by : [address] [address] Phosphorus, pl 3.9 2.3 - 4.5 mg/dL ABEBE LOYA Comment:Testing performed by : [address] [address] Albumin 3.4(L) 3.5 - 5.0 g/dL ABEBE LOYA Comment:Testing performed by : [address] [address] Blood 02/17/2025 9:45 AM CDT 02/17/2025 1:06 PM CDT us Sarahi Turner MD LAB BLOOD ORDERABLES Final Resu lt ABEBE [address] [facility] [place] [address] * Differential, auto (02/13/2025 1:30 PM CDT) Neutrophil abs 3.96 1.50 - 6.50 K/cumm Comment:Testing performed by : [address] [address] Imm gran abs 0.05 0.00 - 0.10 K/cumm ABEBE LOYA Comment:Testing performed by : [address] [address] Lymphocyte abs 1.59 0.80 - 3.30 K/cumm ABEBE LOYA Comment:Testing performed by : [address] [address] Monocyte abs 0.65 0.20 - 0.80 K/cumm ABEBE LOYA Comment:Testing performed by : [address] [address] Eosinophil abs 0.37 0.00 - 0.50 K/cumm ABEBE Comment:Testing performed by : [address] [address] Basophil abs 0.04 0.00 - 0.10 K/cumm ABEBE Comment:Testing performed by : [address] [address] Neutrophil pct 59.3 % ABEBE Comment: Interpretive Data Percent cell count reference ranges are not reported, since discordance with absolute values may lead to misinterpretation of CBC data. Current Interpretive Data was last revised on 2018. Testing performed by: [address] [address] Imm gran pct 0.8 % ABEBE Comment: Interpretive Data Percent cell count reference ranges are not reported, since discordance with absolute values may lead to misinterpretation of CBC data. Current Interpretive Data was last revised on 2018. Testing performed by: [address] [address] Lymphocyte pct 23.9 % ABEBE Comment: Interpretive Data Percent cell count reference ranges are not reported, since discordance with absolute values may lead to misinterpretation of CBC data. Current Interpretive Data was last revised on 2018. Testing performed by: [address] [address] Monocyte pct 9.8 % ABEBE Comment: Interpretive Data Percent cell count reference ranges are not reported, since discordance with absolute values may lead to misinterpretation of CBC data. Current Interpretive Data was last revised on 2018. Testing performed by: [address] [address] Eosinophil pct 5.6 % ABEBE Comment: Interpretive Data Percent cell count reference ranges are not reported, since discordance with absolute values may lead to misinterpretation of CBC data. Current Interpretive Data was last revised on 2018. Testing performed by: [address] [address] Basophil pct 0.6 % ABEBE Comment: Interpretive Data Percent cell count reference ranges are not reported, since discordance with absolute values may lead to misinterpretation of CBC data. Current Interpretive Data was last revised on 2018. Testing performed by: [address] [address] Blood 02/13/2025 1:30 PM CDT 02/13/2025 1:58 PM CDT us Sarahi Turner MD LAB BLOOD ORDERABLES Final Resu lt ABEBE [address] [facility] [place] [address] * (ABNORMAL) CBC with auto differential (02/13/2025 1:30 PM CDT) WBC 6.66 3.80 - 9.90 K/cumm Comment:Testing performed by : [address] [address] Hgb 8.4(L) 11.9 - 15.5 g/dL ABEBE Comment:Testing performed by : [address] [address] Hct 28.8(L) 35.6 - 45.5 % ABEBE Comment:Testing performed by : [address] [address] Plt 210 150 - 400 K/cumm ABEBE Comment:Testing performed by : [address] [address] MPV 9.3 9.1 - 12.3 fL ABEBE Comment:Testing performed by : [address] [address] RBC 2.74(L) 3.90 - 5.20 M/cumm ABEBE Comment:Testing performed by : [address] [address] MCV 105.1(H) 81.3 - 96.4 fL ABEBE Comment:Testing performed by : [address] [address] MCH 30.7 27.1 - 33.3 pg CERNER MH Comment:Testing performed by : [facility], [address] [place] [address]., [address] MCHC 29.2(L) 32.3 - 35.7 g/dL ABEBE LOYA Comment:Testing performed by : [facility], [address] [place] [address]., [address] RDW CV 16.2(H) 11.1 - 14.9 % ABEBE LOYA Comment:Testing performed by : [address] [address] RDW SD 63.1(H) 35.7 - 48.1 fL ABEBE LOYA Comment:Testing performed by : [address] [address] NRBC abs 0.00 0.00 - 0.01 K/cumm ABEBE LOYA Comment:Testing performed by : [address] [address] Blood 02/13/2025 1:30 PM CDT 02/13/2025 1:58 PM CDT us Sarahi Turner MD LAB BLOOD ORDERABLES Final Resu lt ABEBE [address] [facility] Department [place] [address] * Tacrolimus level random (02/13/2025 1:30 PM CDT) Tacrolimus random 4.0 ng/mL Comment: Interpretive Data Testing performed by liquid chromatography-tandem mass spectrometry. Therapeutic concentrations vary depending on type of transplanted organ and time elapsed since transplant. Typical trough concentrations range from 5-15 ng/mL. This test was developed and its performance characteristics determined by the [facility] consistent with CLIA requirements. This test has not been cleared or approved by the [place] Food and Drug administration. Current interpretive data last reviewed 2020. Testing performed by: [facility], [address] [facility], [place]., [address] Blood 02/13/2025 1:30 PM CDT 02/13/2025 5:44 PM CDT us Sarahi Turner MD LAB BLOOD ORDERABLES Final Resu lt Performing Organization Address City/[facility]/ZIP Co de Phone Number ABEBE [address] [place] [address] * (ABNORMAL) eGFR (02/10/2025 9:30 AM CDT) [...] was last reviewed 2021. Testing performed by: [address] [address] Blood 02/10/2025 9:30 AM CDT 02/10/2025 11:41 AM CDT us Ann Marie Ardon MD LAB BLOOD ORDERABLES Final Result Performing Organization Address City/[facility]/ZIP Co de Phone Number ABEBE [address] [place] [address] * Differential, auto (02/10/2025 9:30 AM CDT) Neutrophil abs 4.72 1.50 - 6.50 K/cumm Comment:Testing performed by : [address] [address] Imm gran abs 0.05 0.00 - 0.10 K/cumm [facility] Comment:Testing performed by : [address] [address] Lymphocyte abs 1.67 0.80 - 3.30 K/cumm [facility] [place] Comment:Testing performed by : [address] [address] Monocyte abs 0.78 0.20 - 0.80 K/cumm [facility] Comment:Testing performed by : [address], [place]., [address] Eosinophil abs 0.28 0.00 - 0.50 K/cumm [facility] Comment:Testing performed by : [address] [address] Basophil abs 0.05 0.00 - 0.10 K/cumm [facility] Comment:Testing performed by : [address] [address] Neutrophil pct 62.5 % [facility] Comment: Interpretive Data Percent cell count reference ranges are not reported, since discordance with absolute values may lead to misinterpretation of CBC data. Current Interpretive Data was last revised on 2018. Testing performed by: [address] [address] Imm gran pct 0.7 % [facility] [place] Comment: Interpretive Data Percent cell count reference ranges are not reported, since discordance with absolute values may lead to misinterpretation of CBC data. Current Interpretive Data was last revised on 2018. Testing performed by: [address] [address] Lymphocyte pct 22.1 % CERNER Comment: Interpretive Data Percent cell count reference ranges are not reported, since discordance with absolute values may lead to misinterpretation of CBC data. Current Interpretive Data was last revised on 2018. Testing performed by: [address] [address] Monocyte pct 10.3 % CERNER Comment: Interpretive Data Percent cell count reference ranges are not reported, since discordance with absolute values may lead to misinterpretation of CBC data. Current Interpretive Data was last revised on 2018. Testing performed by: [address] [address] Eosinophil pct 3.7 % ABEBE Comment: Interpretive Data Percent cell count reference ranges are not reported, since discordance with absolute values may lead to misinterpretation of CBC data. Current Interpretive Data was last revised on 2018. Testing performed by: [address] [address] Basophil pct 0.7 % ABEBE Comment: Interpretive Data Percent cell count reference ranges are not reported, since discordance with absolute values may lead to misinterpretation of CBC data. Current Interpretive Data was last revised on 2018. Testing performed by: [address] [address] Blood 02/10/2025 9:30 AM CDT 02/10/2025 11:40 AM CDT Ann Marie Ardon MD LAB BLOOD ORDERABLES Final Result ABEBE [address] [facility] Department of Laboratories [place], [place] [id number] * Tacrolimus level trough (02/10/2025 9:30 AM CDT) [facility] Tacrolimus trough 5.6 ng/mL Comment: Interpretive Data Testing performed by liquid chromatography-tandem mass spectrometry. Therapeutic concentrations vary depending on type of transplanted organ and time elapsed since transplant. Typical trough concentrations range from 5-15 ng/mL. This test was developed and its performance characteristics determined by the [facility] consistent with CLIA requirements. This test has not been cleared or approved by the [place] Food and Drug administration. Current interpretive data last reviewed 2020. Testing performed by: [facility], [address] [facility] [place]., [address] Blood 02/10/2025 9:30 AM CDT 02/10/2025 3:50 PM CDT us Ann Marie Ardon MD LAB BLOOD ORDERABLES Final Result [facility] [address] [facility] [place] [address] * (ABNORMAL) CBC with auto differential (02/10/2025 9:30 AM CDT) WBC 7.55 3.80 - 9.90 K/cumm Comment:Testing performed by : [address] [address] Hgb 7.7(L) 11.9 - 15.5 g/dL ABEBE Comment:Testing performed by : [address] [address] Hct 25.8(L) 35.6 - 45.5 % ABEBE Comment:Testing performed by : [address] [address] Plt 179 150 - 400 K/cumm ABEBE Comment:Testing performed by : [address] [address] MPV 9.3 9.1 - 12.3 fL ABEBE Comment:Testing performed by : [address] [address] RBC 2.50(L) 3.90 - 5.20 M/cumm ABEBE Comment:Testing performed by : [address] [address] MCV 103.2(H) 81.3 - 96.4 fL ABEBE Comment:Testing performed by : [address] [address] MCH 30.8 27.1 - 33.3 pg ABEBE Comment:Testing performed by : [address] [address] MCHC 29.8(L) 32.3 - 35.7 g/dL ABEBE Comment:Testing performed by : [address] [address] RDW CV 16.6(H) 11.1 - 14.9 % ABEBE Comment:Testing performed by : [address], [address] RDW SD 63.7(H) 35.7 - 48.1 fL ABEBE Comment:Testing performed by : [address] [address] NRBC abs 0.00 0.00 - 0.01 K/cumm ABEBE LOYA Comment:Testing performed by : [address] [address] Blood 02/10/2025 9:30 AM CDT 02/10/2025 11:40 AM CDT us Ann Marie Ardon MD LAB BLOOD ORDERABLES Final Result ABEBE [address] [facility] [place] [address] * (ABNORMAL) Renal function panel (02/10/2025 9:30 AM CDT) Sodium 139 135 - 145 mmol/L Comment:Testing performed by : [address] [address] Potassium, pl 3.8 3.3 - 4.9 mmol/L ABEBE Comment:Testing performed by : [address] [address] Chloride 99 97 - 110 mmol/L ABEBE Comment:Testing performed by : [address] [address] CO2 25 22 - 32 mmol/L ABEBE Comment:Testing performed by : [address] [address] Anion gap 15 2 - 15 mmol/L ABEBE Comment:Testing performed by : [address] [address] BUN 105(H) 6 - 25 mg/dL ABEBE Comment:Testing performed by : [address] [address] Creatinine 2.29(H) 0.60 - 1.10 mg/dL ABEBE Comment:Testing performed by : [address] [address] Glucose 81 70 - 199 mg/dL ABEBE [...] was last revised 2022. Testing performed by: [address] [address] Calcium 9.3 8.5 - 10.3 mg/dL ABEBE Comment:Testing performed by : [address] [address] Phosphorus, pl 4.5 2.3 - 4.5 mg/dL ABEBE Comment:Testing performed by : [address] [address] Albumin 3.2(L) 3.5 - 5.0 g/dL ABEBE Comment:Testing performed by : [address] [address] Blood 02/10/2025 9:30 AM CDT 02/10/2025 11:41 AM CDT us Ann Marie Ardon MD LAB BLOOD ORDERABLES Final Result ABEBE [address] [facility] [place] [address] * Allosure kidney donor-derived cell-free DNA (cFDNA) [...] For more information about AlloSure, please visit [email or web address]. Specimens from kidney retransplant recipients in whom [...] (1)Bernadette et al., J Mol Diagn 2016; (2)López et al., J Am Soc Nephrol 2017; (3)Puliyanda et al., Pediatric Transplantation 2020; (4)Ruby et al., J Appl Lab Med 2017; (5)Bu et al., Kidney International 2020;(6) Rayo et al.,Transplantation Direct 2021; (7)Abram et al., Transplantation Direct 2022 The AlloSure donor-derived cell-free DNA test was developed and its performance characteristics were determined by the [facility] laboratory. The test has not been cleared or approved by the U.S. Food and Drug Administration, nor is it currently required to be. The laboratory is certified under the Clinical Laboratory Improvement Amendments of 1988 (CLIA '88) and accredited by the [employer] [place] [employer] (CAP) as qualified to perform high complexity clinical laboratory testing. The contents of this report are confidential and intended solely for the use of authorized personnel. AlloSure testing performed at [facility]. [address] [place] [id number] (CLIA No: [id number], CAP No: [id number]) Speech And Hearing Director: Andre Lim M.D. Plasma 02/06/2025 3:32 PM CDT us Raza Sanon MD LAB BLOOD ORDERABLES Final R esult [facility] * (ABNORMAL) Basic metabolic panel (02/06/2025 11:00 [...] [facility] SCRIBED eGFR in NonAfrican Ukrainian 22 >60 mL/min [facility] Blood 02/06/2025 11:0 0 AM CDT us Historical Provider LAB BLOOD ORDERABLES Edit ed Result - Final [facility] [address] [phone] * Sodium, whole blood (02/04/2025 5:45 AM CDT) Sodium, Whole Blood 135 135 - 145 mmol/L Blood 02/04/2025 5:45 AM CDT 02/04/2025 6:13 AM CDT Holly Mix [employer]DRAULIC RIVETER LAB BLOOD ORDERABLES Final Result [facility] [place] [address] * Potassium, whole blood (02/04/2025 5:45 AM CDT) Potassium, bld 4.0 3.3 - 4.9 mmol/L Blood 02/04/2025 5:45 AM CDT 02/04/2025 6:13 AM CDT Prabha Lagunas HYDRAULIC RIVETER LAB BLOOD ORDERABLES Final Result Performing Organization Address City/[facility] Co de Phone Number ABEBE [facility] [place] [address] * Tacrolimus level trough (02/04/2025 5:45 AM CDT) Tacrolimus trough 3.7 ng/mL Comment: Interpretive Data Testing performed by liquid chromatography-tandem mass spectrometry. Therapeutic concentrations vary depending on type of transplanted organ and time elapsed since transplant. Typical trough concentrations range from 5-15 ng/mL. This test was developed and its performance characteristics determined by the [facility] consistent with CLIA requirements. This test has not been cleared or approved by the US Food and Drug administration. Current interpretive data last reviewed 2020. Blood 02/04/2025 5:45 AM CDT 02/04/2025 6:17 AM CDT Narrative ABEBE HICKS - 02/04/2025 9:12 AM CDT Please check before administering morning tacrolimus dose us Gisselle Sheffield MD LAB BLOOD ORDERABLES Final Re sult Performing Organization Address [facility] Co de Phone Number [facility] [place] [address] * (ABNORMAL) eGFR (02/03/2025 9:28 PM CDT) eGFR 17(L) >=60 mL/min/1. 73 [...] BLOOD ORDERABLES Final Result Performing Organization Address City/[facility]/ZIP Co de Phone Number [facility] [place] [address] * (ABNORMAL) CBC without differential (02/03/2025 9:28 PM CDT) WBC 10.5(H) 3.8 - 9.9 K/cumm Hgb 7.2(L) 11.9 - 15.5 g/dL [facility] Hct 22.8(L) 35.6 - 45.5 % [facility] Plt 118(L) 150 - 400 K/cumm [facility] MPV 9.8 9.1 - 12.3 fL [facility] RBC 2.28(L) 3.90 - 5.20 M/cumm [facility] MCV 100.0(H) 81.3 - 96.4 fL [facility] MCH 31.6 27.1 - 33.3 pg [facility] MCHC 31.6(L) 32.3 - 35.7 g/dL [facility] [facility] R[facility] CV 17.0(H) 11.1 - 14.9 % [facility] RDW SD 62.4(H) 35.7 - 48.1 fL [facility] NRBC abs 0.00 0.00 - 0.01 K/cumm [facility] Blood 02/03/2025 9:28 PM CDT 02/03/2025 10:18 PM CDT us Prabha Lagunas HYDRAULIC RIVETER LAB BLOOD ORDERABLES Final Result Performing Organization Address City/[facility]/ZIP Co de Phone Number [facility] [place] [address] * Phosphorus (02/03/2025 9:28 PM CDT) Phosphorus, pl 4.5 2.3 - 4.5 mg/dL Blood 02/03/2025 9:28 PM CDT 02/03/2025 10:18 PM CDT us Holly Mix HYDRAULIC RIVETER LAB BLOOD ORDERABLES Final Result [facility] [place] [address] * Magnesium (02/03/2025 9:28 PM CDT) Pathologist [facility] Magnesium 1.9 1.4 - 2.5 mg/dL Blood 02/03/2025 9:28 PM CDT 02/03/2025 10:18 PM CDT us Holly Mix HYDRAULIC RIVETER LAB BLOOD ORDERABLES Final Result [facility] [place] [address] * (ABNORMAL) Basic metabolic panel (02/03/2025 9:28 PM CDT) Pathologist [facility] Sodium 133(L) 135 - 145 mmol/L Potassium, pl 4.4 3.3 - 4.9 mmol/L [facility] Chloride 94(L) 97 - 110 mmol/L [facility] CO2 27 22 - 32 mmol/L [facility] Anion gap 12 2 - 15 mmol/L [facility] BUN 111(H) 6 - 25 mg/dL [facility] Creatinine 2.82(H) 0.60 - 1.10 mg/dL [facility] Glucose 185 70 - 199 mg/dL [facility] Comment: Interpretive Data Fasting glucose >/= 126 [...] 2022. Calcium 8.9 8.5 - 10.3 mg/dL [facility] Blood 02/03/2025 9:28 PM CDT 02/03/2025 10:18 PM CDT Prabha Lagunas HYDRAULIC RIVETER LAB BLOOD ORDERABLES Final Result [facility] [place] [address] * XR Chest PA Lateral 2 Views [...] signed by: Socrates Pelaez M.D. us Prabha Lagunas HYDRAULIC RIVETER IMG XR PROCEDURES Final Res ult * Tacrolimus level trough (02/03/2025 4:45 AM CDT) Tacrolimus trough 3.6 ng/mL Comment: Interpretive Data Testing performed by liquid chromatography-tandem mass spectrometry. Therapeutic concentrations vary depending on type of transplanted organ and time elapsed since transplant. Typical trough concentrations range from 5-15 ng/mL. This test was developed and its performance characteristics determined by the [facility] consistent with CLIA requirements. This test has not been cleared or approved by the [place] Food and Drug administration. Current interpretive data last reviewed 2020. Blood 02/03/2025 4:45 AM CDT 02/03/2025 5:37 AM CDT Narrative [facility] - 02/03/2025 8:52 AM CDT Please check before administering morning tacrolimus dose Gisselle Sheffield MD LAB BLOOD ORDERABLES Final Re sult Performing Organization Address [facility] de Phone Number [facility] [place] [address] * (ABNORMAL) Sodium, whole blood (02/02/2025 9:22 PM CDT) [facility] Sodium, Whole Blood 132(L) 135 - 145 mmol/L Blood 02/02/2025 9:22 PM CDT 02/02/2025 9:39 PM CDT Result [facility] Holly Mix NP LAB BLOOD ORDERABLES Final Result Performing Organization Address [facility] de Phone Number [facility] [place] [address] * Potassium, whole blood (02/02/2025 9:22 PM CDT) Pathologist [facility] Potassium, bld 4.5 3.3 - 4.9 mmol/L Blood 02/02/2025 9:22 PM CDT 02/02/2025 9:39 PM CDT Holly Mix NP LAB BLOOD ORDERABLES Final Result Performing Organization Address [facility] de Phone Number [facility] [place] [address] * (ABNORMAL) eGFR (02/02/2025 9:22 PM CDT) Pathologist [facility] eGFR 17(L) >=60 mL/min/1. 73 m2 Comment: [...] CDT 02/02/2025 9:44 PM CDT Prabha Lagunas NP LAB BLOOD ORDERABLES Final Result Performing Organization Address [facility] de Phone Number [facility] [place] [address] * (ABNORMAL) CBC without differential (02/02/2025 9:22 PM CDT) Pathologist [facility] WBC 12.5(H) 3.8 - 9.9 K/cumm Hgb 7.8(L) 11.9 - 15.5 g/dL [facility] Hct 24.3(L) 35.6 - 45.5 % [facility] Plt 134(L) 150 - 400 K/cumm [facility] MPV 9.7 9.1 - 12.3 fL [facility] RBC 2.47(L) 3.90 - 5.20 M/cumm [facility] MCV 98.4(H) 81.3 - 96.4 fL [facility] MCH 31.6 27.1 - 33.3 pg [facility] MCHC 32.1(L) 32.3 - 35.7 g/dL [facility] RDW CV 17.1(H) 11.1 - 14.9 % [facility] RDW SD 61.7(H) 35.7 - 48.1 fL [facility] NRBC abs 0.00 0.00 - 0.01 K/cumm [facility] Blood 02/02/2025 9:22 PM CDT 02/02/2025 9:45 PM CDT Prabha Lagunas HYDRAULIC RIVETER LAB BLOOD ORDERABLES Final Result Performing Organization Address City/[facility]/ZIP Co de Phone Number [facility] [place] [address] * Phosphorus (02/02/2025 9:22 PM CDT) Phosphorus, pl 4.2 2.3 - 4.5 mg/dL Blood 02/02/2025 9:22 PM CDT 02/02/2025 9:44 PM CDT Holly Mix HYDRAULIC RIVETER LAB BLOOD ORDERABLES Final Result [facility] [place] [address] * Magnesium (02/02/2025 9:22 PM CDT) Magnesium 2.0 1.4 - 2.5 mg/dL Blood 02/02/2025 9:22 PM CDT 02/02/2025 9:44 PM CDT Holly Mix HYDRAULIC RIVETER LAB BLOOD ORDERABLES Final Result Performing Organization Address City/[facility]/ZIP Co de Phone Number [facility] [place] [address] * (ABNORMAL) Basic metabolic panel (02/02/2025 9:22 PM CDT) Sodium 132(L) 135 - 145 mmol/L Potassium, pl 5.3(H) 3.3 - 4.9 mmol/L [facility] Comment:Hemolyzed; Potassium value may be falsely elevated by as much as 0.6-1.0 mmol/L. Suggest redraw and reanalysis. Chloride 91(L) 97 - 110 mmol/L [facility] CO2 26 22 - 32 mmol/L [facility] Anion gap 15 2 - 15 mmol/L [facility] BUN 109(H) 6 - 25 mg/dL [facility] Creatinine 2.83(H) 0.60 - 1.10 mg/dL [facility] Glucose 138 70 - 199 mg/dL [facility] Comment: Interpretive Data Fasting glucose >/= 126 [...] 2022. Calcium 9.4 8.5 - 10.3 mg/dL [facility] Blood 02/02/2025 9:22 PM CDT 02/02/2025 9:44 PM CDT us Prabha Lagunas HYDRAULIC RIVETER LAB BLOOD ORDERABLES Final Result [facility] [place] [address] * Potassium, whole blood (02/02/2025 8:39 AM CDT) Potassium, bld 4.6 3.3 - 4.9 mmol/L Blood 02/02/2025 8:39 AM CDT 02/02/2025 9:17 AM CDT us Holly Mix HYDRAULIC RIVETER LAB BLOOD ORDERABLES Final Result Performing Organization Address [facility] Co de Phone Number [facility] [place] [address] * (ABNORMAL) Sodium, whole blood (02/02/2025 3:11 AM CDT) Sodium, Whole Blood 134(L) 135 - 145 mmol/L Blood 02/02/2025 3:11 AM CDT 02/02/2025 4:25 AM CDT us Holly Mix HYDRAULIC RIVETER LAB BLOOD ORDERABLES Final Result Performing Organization Address [facility] Co de Phone Number [facility] [place] [address] * Potassium, whole blood (02/02/2025 3:11 AM CDT) Potassium, bld 4.8 3.3 - 4.9 mmol/L Blood 02/02/2025 3:11 AM CDT 02/02/2025 4:25 AM CDT us Holly Mix HYDRAULIC RIVETER LAB BLOOD ORDERABLES Final Result Performing Organization Address [facility] Co de Phone Number [facility] [place] [place] [address] * Tacrolimus level trough (02/02/2025 3:11 AM CDT) Tacrolimus trough 4.4 ng/mL Comment: Interpretive Data Testing performed by liquid chromatography-tandem mass spectrometry. Therapeutic concentrations vary depending on type of transplanted organ and time elapsed since transplant. Typical trough concentrations range from 5-15 ng/mL. This test was developed and its performance characteristics determined by the [facility] consistent with CLIA requirements. This test has not been cleared or approved by the US Food and Drug administration. Current interpretive data last reviewed 2020. Blood 02/02/2025 3:11 AM CDT 02/02/2025 4:22 AM CDT Narrative [facility] - 02/02/2025 7:06 AM CDT Please check before administering morning tacrolimus dose us Gisselle Sheffield MD LAB BLOOD ORDERABLES Final Re sult [facility] [place] [address] * (ABNORMAL) CBC without differential (02/02/2025 3:11 AM CDT) WBC 9.3 3.8 - 9.9 K/cumm Hgb 7.0(L) 11.9 - 15.5 g/dL [facility] Hct 21.8(L) 35.6 - 45.5 % [facility] Plt 114(L) 150 - 400 K/cumm [facility] MPV 9.7 9.1 - 12.3 fL [facility] RBC 2.21(L) 3.90 - 5.20 M/cumm [facility] MCV 98.6(H) 81.3 - 96.4 fL [facility] MCH 31.7 27.1 - 33.3 pg [facility] MCHC 32.1(L) 32.3 - 35.7 g/dL [facility] RDW CV 17.2(H) 11.1 - 14.9 % [facility] RDW SD 62.4(H) 35.7 - 48.1 fL [facility] NRBC abs 0.00 0.00 - 0.01 K/cumm [facility] Blood 02/02/2025 3:11 AM CDT 02/02/2025 4:22 AM CDT Prabha Lagunas HYDRAULIC RIVETER LAB BLOOD ORDERABLES Final Result [facility] [place] [address] * Type and screen (02/02/2025 3:11 AM CDT) ABO Rh B Positive Demetria, indirect Negative [facility] Blood 02/02/2025 3:11 AM CDT 02/02/2025 4:29 AM CDT Narrative [facility] - 02/02/2025 5:25 AM CDT Has the patient had Daratumumab or Isatuximab in the past 6 months?->Unknown Holly Mix HYDRAULIC RIVETER LAB BLOOD BANK TEST ORDERA BLES Final Result Performing Organization Address City/[facility] Co de Phone Number [facility] [place] [address] * (ABNORMAL) eGFR (02/01/2025 8:00 PM CDT) [...] 8:00 PM CDT 02/02/2025 4:28 AM CDT Prabha Lagunas HYDRAULIC RIVETER LAB BLOOD ORDERABLES Final Result Performing Organization Address City/[facility] Co de Phone Number [facility] [place] [address] * Phosphorus (02/01/2025 8:00 PM CDT) [facility] Phosphorus, pl 4.1 2.3 - 4.5 mg/dL Blood 02/01/2025 8:00 PM CDT 02/02/2025 4:28 AM CDT Holly Mix HYDRAULIC RIVETER LAB BLOOD ORDERABLES Final Result Performing Organization Address [facility] Co de Phone Number [facility] [place] [address] * Magnesium (02/01/2025 8:00 PM CDT) [facility] Magnesium 2.0 1.4 - 2.5 mg/dL Blood 02/01/2025 8:00 PM CDT 02/02/2025 4:28 AM CDT Holly Mix HYDRAULIC RIVETER LAB BLOOD ORDERABLES Final Result Performing Organization Address [facility] [place] [address] * (ABNORMAL) Basic metabolic panel (02/01/2025 8:00 PM CDT) [facility] Sodium 136 135 - 145 mmol/L Potassium, pl 5.1(H) 3.3 - 4.9 mmol/L [facility] Chloride 98 97 - 110 mmol/L [facility] CO2 29 22 - 32 mmol/L [facility] Anion gap 9 2 - 15 mmol/L [facility] BUN 112(H) 6 - 25 mg/dL [facility] Creatinine 2.68(H) 0.60 - 1.10 mg/dL [facility] Glucose 84 70 - 199 mg/dL [facility] Comment: Interpretive Data Fasting glucose >/= 126 [...] 2022. Calcium 8.8 8.5 - 10.3 mg/dL [facility] Blood 02/01/2025 8:00 PM CDT 02/02/2025 4:28 AM CDT Prabha Lagunas HYDRAULIC RIVETER LAB BLOOD ORDERABLES Final Result [facility] [place] [address] * Potassium, whole blood (02/01/2025 10:08 AM CDT) Potassium, bld 4.4 3.3 - 4.9 mmol/L Blood 02/01/2025 10:0 8 AM CDT 02/01/2025 10:44 AM CDT Holly Mix HYDRAULIC RIVETER LAB BLOOD ORDERABLES Final Result [facility] [place] [address] * Tacrolimus level trough (02/01/2025 5:13 AM CDT) Tacrolimus trough 3.0 ng/mL Comment: Interpretive Data Testing performed by liquid chromatography-tandem mass spectrometry. Therapeutic concentrations vary depending on type of transplanted organ and time elapsed since transplant. Typical trough concentrations range from 5-15 ng/mL. This test was developed and its performance characteristics determined by the [facility] consistent with CLIA requirements. This test has not been cleared or approved by the US Food and Drug administration. Current interpretive data last reviewed 2020. Blood 02/01/2025 5:13 AM CDT 02/01/2025 6:34 AM CDT Narrative [facility] - 02/01/2025 1:20 PM CDT Please check before administering morning tacrolimus dose Gisselle Sheffield MD LAB BLOOD ORDERABLES Final Re sult Performing Organization Address City/[facility]/ZIP Co de Phone Number [facility] [place] [address] * (ABNORMAL) Sodium, whole blood (01/31/2025 9:15 PM CDT) Sodium, Whole Blood 131(L) 135 - 145 mmol/L Blood 01/31/2025 9:15 PM CDT 01/31/2025 9:49 PM CDT Result [facility] Holly Mix NP LAB BLOOD ORDERABLES Final Result Performing Organization Address [facility] Co de Phone Number [facility] [place] [address] * Potassium, whole blood (01/31/2025 9:15 PM CDT) Potassium, bld 4.8 3.3 - 4.9 mmol/L Blood 01/31/2025 9:15 PM CDT 01/31/2025 9:49 PM CDT Holly Mix HYDRAULIC RIVETER LAB BLOOD ORDERABLES Final Result Performing Organization Address [facility] Co de Phone Number [facility] [place] [address] * (ABNORMAL) eGFR (01/31/2025 9:15 PM CDT) Pathologist [facility] eGFR 17(L) >=60 mL/min/1. 73 m2 Comment: [...] 01/31/2025 9:53 PM CDT us Prabha Lagunas NP LAB BLOOD ORDERABLES Final Result [facility] [place] [address] * (ABNORMAL) CBC without differential (01/31/2025 9:15 PM CDT) [facility] WBC 10.4(H) 3.8 - 9.9 K/cumm Hgb 7.3(L) 11.9 - 15.5 g/dL [facility] Hct 23.2(L) 35.6 - 45.5 % [facility] Plt 117(L) 150 - 400 K/cumm [facility] MPV 9.4 9.1 - 12.3 fL [facility] RBC 2.33(L) 3.90 - 5.20 M/cumm [facility] MCV 99.6(H) 81.3 - 96.4 fL [facility] MCH 31.3 27.1 - 33.3 pg [facility] MCHC 31.5(L) 32.3 - 35.7 g/dL [facility] RDW CV 17.0(H) 11.1 - 14.9 % [facility] RDW SD 61.7(H) 35.7 - 48.1 fL [facility] NRBC abs 0.00 0.00 - 0.01 K/cumm [facility] Blood 01/31/2025 9:15 PM CDT 01/31/2025 9:53 PM CDT Prabha Lagunas HYDRAULIC RIVETER LAB BLOOD ORDERABLES Final Result Performing Organization Address City/[facility] Co de Phone Number [facility] [place] [address] * Phosphorus (01/31/2025 9:15 PM CDT) Phosphorus, pl 3.9 2.3 - 4.5 mg/dL Blood 01/31/2025 9:15 PM CDT 01/31/2025 9:53 PM CDT us Holly Mix HYDRAULIC RIVETER LAB BLOOD ORDERABLES Final Result Performing Organization Address City/[facility] Co de Phone Number [facility] [place] [address] * Magnesium (01/31/2025 9:15 PM CDT) Magnesium 2.1 1.4 - 2.5 mg/dL Blood 01/31/2025 9:15 PM CDT 01/31/2025 9:53 PM CDT Holly Mix HYDRAULIC RIVETER LAB BLOOD ORDERABLES Final Result Performing Organization Address City/[facility]/ZIP Co de Phone Number [facility] [place] [address] * (ABNORMAL) Basic metabolic panel (01/31/2025 9:15 PM CDT) Sodium 132(L) 135 - 145 mmol/L Potassium, pl 5.0(H) 3.3 - 4.9 mmol/L [facility] Chloride 94(L) 97 - 110 mmol/L [facility] CO2 27 22 - 32 mmol/L [facility] Anion gap 11 2 - 15 mmol/L [facility] BUN 116(H) 6 - 25 mg/dL [facility] Creatinine 2.79(H) 0.60 - 1.10 mg/dL [facility] Glucose 168 70 - 199 mg/dL [facility] Comment: Interpretive Data Fasting glucose >/= 126 [...] 2022. Calcium 8.7 8.5 - 10.3 mg/dL [facility] Blood 01/31/2025 9:15 PM CDT 01/31/2025 9:53 PM CDT us Prabha Lagunas NP LAB BLOOD ORDERABLES Final Result [facility] [place] [address] * Potassium, whole blood (01/31/2025 11:15 AM CDT) Pathologist [facility] Potassium, bld 4.4 3.3 - 4.9 mmol/L Blood 01/31/2025 11:1 5 AM CDT 01/31/2025 12:17 PM CDT us Holly Mix HYDRAULIC RIVETER LAB BLOOD ORDERABLES Final Result [facility] [place] [address] * US Renal Transplant W Dopplers (01/31/2025 [...] with history of orthotopic renal transplantation in 2012. 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 COMPARISON: [...] by: Andre Cornejo M.D. Naa Lerma NP [facility] US PROCEDURES Final Result * Tacrolimus level trough (01/31/2025 4:21 AM CDT) Pathologist [facility] Tacrolimus trough 3.2 ng/mL Comment: Interpretive Data Testing performed by liquid chromatography-tandem mass spectrometry. Therapeutic concentrations vary depending on type of transplanted organ and time elapsed since transplant. Typical trough concentrations range from 5-15 ng/mL. This test was developed and its performance characteristics determined by the [facility] consistent with CLIA requirements. This test has not been cleared or approved by the [place] Food and Drug administration. Current interpretive data last reviewed 2020. Blood 01/31/2025 4:21 AM CDT 01/31/2025 5:48 AM CDT Narrative [facility] - 01/31/2025 7:50 AM CDT Please check before administering morning tacrolimus dose Gisselle Sheffield MD LAB BLOOD ORDERABLES Final Re sult Performing Organization Address [facility] Co de Phone Number [facility] [place] [address] * (ABNORMAL) Sodium, whole blood (01/30/2025 8:34 PM CDT) Pathologist [facility] Sodium, Whole Blood 130(L) 135 - 145 mmol/L Blood 01/30/2025 8:34 PM CDT 01/30/2025 9:03 PM CDT Holly Mix NP LAB BLOOD ORDERABLES Final Result Performing Organization Address [facility] Co de Phone Number [facility] [place] [address] * Potassium, whole blood (01/30/2025 8:34 PM CDT) [facility] Potassium, bld 4.7 3.3 - 4.9 mmol/L Blood 01/30/2025 8:34 PM CDT 01/30/2025 8:48 PM CDT Holly Mix HYDRAULIC RIVETER LAB BLOOD ORDERABLES Final Result Performing Organization Address [facility] Co de Phone Number [facility] [place] [address] * (ABNORMAL) eGFR (01/30/2025 8:34 PM CDT) Pathologist [facility] eGFR 16(L) >=60 mL/min/1. 73 m2 Comment: [...] 01/30/2025 8:50 PM CDT us Prabha Lagunas NP LAB BLOOD ORDERABLES Final Result [facility] [place] [address] * (ABNORMAL) CBC without differential (01/30/2025 8:34 PM CDT) WBC 11.3(H) 3.8 - 9.9 K/cumm Hgb 8.2(L) 11.9 - 15.5 g/dL [facility] Hct 25.5(L) 35.6 - 45.5 % [facility] Plt 154 150 - 400 K/cumm [facility] MPV 9.2 9.1 - 12.3 fL [facility] RBC 2.63(L) 3.90 - 5.20 M/cumm [facility] MCV 97.0(H) 81.3 - 96.4 fL [facility] MCH 31.2 27.1 - 33.3 pg [facility] MCHC 32.2(L) 32.3 - 35.7 g/dL [facility] RDW CV 17.1(H) 11.1 - 14.9 % [facility] RDW SD 60.1(H) 35.7 - 48.1 fL [facility] NRBC abs 0.00 0.00 - 0.01 K/cumm [facility] Blood 01/30/2025 8:34 PM CDT 01/30/2025 8:50 PM CDT Prabha Lagunas HYDRAULIC RIVETER LAB BLOOD ORDERABLES Final Result Performing Organization Address City/[facility]/ZIP Co de Phone Number [facility] [place] [address] * Phosphorus (01/30/2025 8:34 PM CDT) [facility] Phosphorus, pl 4.3 2.3 - 4.5 mg/dL Blood 01/30/2025 8:34 PM CDT 01/30/2025 8:50 PM CDT Holly Mix HYDRAULIC RIVETER LAB BLOOD ORDERABLES Final Result Performing Organization Address [facility] de Phone Number [facility] [place] [address] * Magnesium (01/30/2025 8:34 PM CDT) [facility] Magnesium 2.4 1.4 - 2.5 mg/dL Blood 01/30/2025 8:34 PM CDT 01/30/2025 8:50 PM CDT Holly Mix HYDRAULIC RIVETER LAB BLOOD ORDERABLES Final Result Performing Organization Address [facility] [place] [address] * (ABNORMAL) Basic metabolic panel (01/30/2025 8:34 PM CDT) [facility] Sodium 133(L) 135 - 145 mmol/L Potassium, pl 4.9 3.3 - 4.9 mmol/L [facility] Chloride 94(L) 97 - 110 mmol/L [facility] CO2 27 22 - 32 mmol/L [facility] Anion gap 12 2 - 15 mmol/L [facility] BUN 115(H) 6 - 25 mg/dL [facility] Creatinine 3.00(H) 0.60 - 1.10 mg/dL [facility] Glucose 152 70 - 199 mg/dL [facility] Comment: Interpretive Data Fasting glucose >/= 126 [...] 2022. Calcium 9.5 8.5 - 10.3 mg/dL [facility] Blood 01/30/2025 8:34 PM CDT 01/30/2025 8:50 PM CDT us Prabha Lagunas NP LAB BLOOD ORDERABLES Final Result [facility] [place] [address] * (ABNORMAL) Urinalysis reflex to microscopic and culture Urine, clean voided (01/30/2025 4:24 PM CDT) Color, ur Straw Yellow Clarity, ur Clear Clear [facility] Specific gravity, ur 1.012 1.003 - 1.030 [facility] pH, urine 6.0 [facility] Comment: Interpretive Data U rine pH is affected by diet, medications, systemic acid-base disturbances, and renal tubular function. pH may affect urinary stone formation. For example, urine pH below 6.0 may help reduce the tendency for calcium phosphate stones and pH greater than 6.0 may reduce the tendency for uric acid stone formation. Source: [facility] [employer] Current Interpretive Data was last revised on 2017 Protein, ur ql 1+(A) Negative [facility] Glucose, ur ql Negative Negative [facility] Ketones, ur Negative Negative [facility] Bilirubin, ur Negative Negative [facility] Blood, ur Negative Negative [facility] Urobilinogen, ur <2.0 <2.0 mg/dL [facility] Nitrite, ur Negative Negative [facility] Leukocyte esterase, ur 3+(A) Negative [facility] UA reflex comment Reflex to microscopic UA will be performed. [facility] Urine, clean voided 01/30/2025 4:24 PM CDT 01/30/2025 4:43 PM CDT Naa Lerma NP LAB MICROBIOLOGY - GENERAL ORDER FILI Final Result Performing Organization Address [facility] de Phone Number [facility] [place] [address] * (ABNORMAL) Urinalysis, microscopic only (01/30/2025 4:24 PM CDT) WBC, ur 11-20(A) 0 - 5 /HPF RBC, ur 0-2 0 - 2 /HPF [facility] Epithelial cells, squamous, ur 1-5 0 - 5 /HPF [facility] Bacteria, ur 1+(A) [facility] Mucous, ur Present(A) [facility] Culture Reflex Comment Reflex to urine culture will be performed. [facility] Urine, clean voided 01/30/2025 4:24 PM CDT 01/30/2025 4:43 PM CDT Naa Lerma NP LAB URINE ORDERABLES Final Resul t Performing Organization Address [facility] Co de Phone Number [facility] [place] [employer] [place] [address] * Urine culture Urine, clean voided (01/30/2025 4:24 PM CDT) Report Final Report: Less than 100,000 colonies/mL (clinically insignificant growth based on current clinical standards) Organism (CLINICALLY INSIGNIFICANT GROWTH [facility] Urine, clean voided 01/30/2025 4:24 PM CDT 01/30/2025 9:02 PM CDT Narrative [facility] - 02/01/2025 7:29 AM CDT Urine culture reflexed based upon urinalysis results. Testing performed by [facility] ([phone]) Naa Lerma [facility] LAB MICROBIOLOGY - GENERAL ORDER FILI Final Result Performing Organization Address City/[facility]/ZIP Co de Phone Number [facility] [place] [address] * Potassium, whole blood (01/30/2025 11:35 AM CDT) Potassium, bld 4.8 3.3 - 4.9 mmol/L Blood 01/30/2025 11:3 5 AM CDT 01/30/2025 11:42 AM CDT Holly Mix [facility] LAB BLOOD ORDERABLES Final Result Performing Organization Address [facility] Co de Phone Number [facility] [place] [address] * US Liver W Complete Doppler (C) [...] HISTORY: 74-year-old female with renal transplant in 2011. Evaluate for hepatic congestion. COMPARISON: CT 12/26/2024 [...] in the distal segment. Right Kidney: The kenaitze right kidney is atrophied. Pancreas: The visualized [...] HISTORY: 74-year-old female with renal transplant in 2011. Evaluate for hepatic congestion. COMPARISON: CT 12/26/2024 [...] in the distal segment. Right Kidney: The kenaitze right kidney is atrophied. Pancreas: The visualized [...] it. Electronically signed by: Dany Figueroa M.D. Naa Lerma NP [facility] US PROCEDURES Final Result * Tacrolimus level trough (01/30/2025 4:04 AM CDT) Tacrolimus trough 3.2 ng/mL Comment: Interpretive Data Testing performed by liquid chromatography-tandem mass spectrometry. Therapeutic concentrations vary depending on type of transplanted organ and time elapsed since transplant. Typical trough concentrations range from 5-15 ng/mL. This test was developed and its performance characteristics determined by the [facility] consistent with CLIA requirements. This test has not been cleared or approved by the [place] Food and Drug administration. Current interpretive data last reviewed 2020. Blood 01/30/2025 4:04 AM CDT 01/30/2025 4:49 AM CDT Kunla [facility] - 01/30/2025 8:07 AM CDT Please check before administering morning tacrolimus dose us Gisselle Sheffield MD LAB BLOOD ORDERABLES Final Re sult Performing Organization Address City/[facility]/ZIP Co de Phone Number [facility] [place] [employer] [place] [address] * POCT glucose (01/29/2025 10:13 PM CDT) Glucose, POC 161 70 - 199 mg/dL Blood 01/29/2025 10:1 3 PM CDT 01/29/2025 10:13 PM CDT Shante Cunningham MD LAB POCT ORDERABLES - DEVICE Fin al Result Performing Organization Address [facility] Co de Phone Number [facility] [place] [employer] [place] [address] * (ABNORMAL) Sodium, whole blood (01/29/2025 10:07 PM CDT) Sodium, Whole Blood 131(L) 135 - 145 mmol/L Blood 01/29/2025 10:0 7 PM CDT 01/29/2025 10:22 PM CDT Holly Mix NP LAB BLOOD ORDERABLES Final Result Performing Organization Address [facility] Co de Phone Number [facility] [place] [address] * Potassium, whole blood (01/29/2025 10:07 PM CDT) Potassium, bld 4.9 3.3 - 4.9 mmol/L Blood 01/29/2025 10:0 7 PM CDT 01/29/2025 10:22 PM CDT Holly Mix NP LAB BLOOD ORDERABLES Final Result Performing Organization Address City/[facility]/ZIP Co de Phone Number [facility] [place] [address] * (ABNORMAL) eGFR (01/29/2025 10:07 PM CDT) [facility] eGFR 15(L) >=60 mL/min/1. 73 m2 Comment: [...] Lagunas NP LAB BLOOD ORDERABLES Final Result [facility] [address] [facility] [place] [address] * (ABNORMAL) CBC without differential (01/29/2025 10:07 PM CDT) [facility] WBC 10.8(H) 3.8 - 9.9 K/cumm Hgb 7.7(L) 11.9 - 15.5 g/dL [facility] Hct 24.0(L) 35.6 - 45.5 % [facility] Plt 159 150 - 400 K/cumm [facility] MPV 8.8(L) 9.1 - 12.3 fL [facility] RBC 2.52(L) 3.90 - 5.20 M/cumm [facility] MCV 95.2 81.3 - 96.4 fL [facility] MCH 30.6 27.1 - 33.3 pg [facility] MCHC 32.1(L) 32.3 - 35.7 g/dL [facility] RDW CV 17.3(H) 11.1 - 14.9 % [facility] RDW SD 60.9(H) 35.7 - 48.1 fL [facility] NRBC abs 0.00 0.00 - 0.01 K/cumm [facility] Blood 01/29/2025 10:0 7 PM CDT 01/29/2025 10:26 PM CDT Prabha Lagunas [facility] LAB BLOOD ORDERABLES Final Result [facility] [place] [address] * Type and screen (01/29/2025 10:07 PM CDT) Demetria, indirect Negative ABO Rh B Positive [facility] Blood 01/29/2025 10:0 7 PM CDT 01/29/2025 10:53 PM CDT Narrative [facility] - 01/30/2025 12:10 AM CDT Has the patient had Daratumumab or Isatuximab in the past 6 months?->Unknown us Holly Mix [facility] LAB BLOOD BANK TEST ORDERA BLES Final Result [facility] [place] [address] * Phosphorus (01/29/2025 10:07 PM CDT) Phosphorus, pl 4.3 2.3 - 4.5 mg/dL Blood 01/29/2025 10:0 7 PM CDT 01/29/2025 10:26 PM CDT Holly Mix [facility] LAB BLOOD ORDERABLES Final Result [facility] [address] [facility] [place] [address] * Magnesium (01/29/2025 10:07 PM CDT) [facility] Magnesium 2.4 1.4 - 2.5 mg/dL Blood 01/29/2025 10:0 7 PM CDT 01/29/2025 10:26 PM CDT Holly Mix [facility] LAB BLOOD ORDERABLES Final Result Performing Organization Address [facility] Co de Phone Number [facility] [place] [address] * (ABNORMAL) Basic metabolic panel (01/29/2025 10:07 PM CDT) [facility] Sodium 131(L) 135 - 145 mmol/L Potassium, pl 5.2(H) 3.3 - 4.9 mmol/L [facility] Chloride 93(L) 97 - 110 mmol/L [facility] CO2 26 22 - 32 mmol/L [facility] Anion gap 12 2 - 15 mmol/L [facility] BUN 102(H) 6 - 25 mg/dL [facility] Creatinine 3.19(H) 0.60 - 1.10 mg/dL [facility] Glucose 151 70 - 199 mg/dL [facility] Comment: Interpretive Data Fasting glucose >/= 126 [...] 2022. Calcium 9.0 8.5 - 10.3 mg/dL [facility] Blood 01/29/2025 10:0 7 PM CDT 01/29/2025 10:26 PM CDT us Prabha Lagunas NP LAB BLOOD ORDERABLES Final Result Performing Organization Address [facility] de Phone Number [facility] [place] [address] * POCT glucose (01/29/2025 5:03 PM CDT) Glucose, POC 172 70 - 199 mg/dL Blood 01/29/2025 5:03 PM CDT 01/29/2025 5:03 PM CDT Shante Cunningham MD LAB POCT ORDERABLES - DEVICE Fin al Result Performing Organization Address [facility] de Phone Number [facility] [place] [address] * POCT glucose (01/29/2025 11:40 AM CDT) Glucose, POC 116 70 - 199 mg/dL Blood 01/29/2025 11:4 0 AM CDT 01/29/2025 11:40 AM CDT Shante Cunningham MD LAB POCT ORDERABLES - DEVICE Fin al Result Performing Organization Address [facility] de Phone Number [facility] [place] [employer] [place] [address] * POCT glucose (01/29/2025 7:40 AM CDT) Glucose, POC 108 70 - 199 mg/dL Blood 01/29/2025 7:40 AM CDT 01/29/2025 7:40 AM CDT us Shante Cunningham MD LAB POCT ORDERABLES - DEVICE Fin al Result Performing Organization Address [facility] Co de Phone Number [facility] [place] [address] * (ABNORMAL) Sodium, whole blood (01/29/2025 5:18 AM CDT) Pathologist [facility] Sodium, Whole Blood 127(L) 135 - 145 mmol/L Blood 01/29/2025 5:18 AM CDT 01/29/2025 5:31 AM CDT Holly Mix NP LAB BLOOD ORDERABLES Final Result Performing Organization Address [facility] [place] [address] * Tacrolimus level trough (01/29/2025 5:18 AM CDT) [facility] Tacrolimus trough 3.3 ng/mL Comment: Interpretive Data Testing performed by liquid chromatography-tandem mass spectrometry. Therapeutic concentrations vary depending on type of transplanted organ and time elapsed since transplant. Typical trough concentrations range from 5-15 ng/mL. This test was developed and its performance characteristics determined by the [facility] consistent with CLIA requirements. This test has not been cleared or approved by the US Food and Drug administration. Current interpretive data last reviewed 2020. Blood 01/29/2025 5:18 AM CDT 01/29/2025 5:30 AM CDT Narrative [facility] - 01/29/2025 8:06 AM CDT Please check before administering morning tacrolimus dose Gisselle Sheffield MD LAB BLOOD ORDERABLES Final Re sult Performing Organization Address [facility] Co de Phone Number [facility] [place] [address] * (ABNORMAL) eGFR (01/28/2025 9:31 PM CDT) [facility] eGFR 16(L) >=60 mL/min/1. 73 m2 Comment: [...] Lagunas NP LAB BLOOD ORDERABLES Final Result [facility] [address] [facility] [place] [address] * (ABNORMAL) CBC without differential (01/28/2025 9:31 PM CDT) [facility] WBC 11.2(H) 3.8 - 9.9 K/cumm Hgb 7.5(L) 11.9 - 15.5 g/dL [facility] Hct 22.9(L) 35.6 - 45.5 % [facility] Plt 156 150 - 400 K/cumm [facility] MPV 9.1 9.1 - 12.3 fL [facility] RBC 2.40(L) 3.90 - 5.20 M/cumm [facility] MCV 95.4 81.3 - 96.4 fL [facility] MCH 31.3 27.1 - 33.3 pg [facility] MCHC 32.8 32.3 - 35.7 g/dL [facility] RDW CV 17.2(H) 11.1 - 14.9 % [facility] RDW SD 60.3(H) 35.7 - 48.1 fL [facility] NRBC abs 0.00 0.00 - 0.01 K/cumm [facility] Blood 01/28/2025 9:3 1 PM CDT 01/28/2025 10:22 PM CDT Prabha Lagunas [facility] LAB [place]LOOD [place] [address] * (ABNORMAL) Phosphorus (01/28/2025 9:31 PM CDT) Phosphorus, pl 4.7(H) 2.3 - 4.5 mg/dL Blood 01/28/2025 9:31 PM CDT 01/28/2025 10:21 PM CDT Holly Mix [facility] LAB BLOOD ORDERABLES Final Result Performing Organization Address City/[facility]/ZIP Co de Phone Number [facility] [place] [address] * Magnesium (01/28/2025 9:31 PM CDT) Magnesium 2.3 1.4 - 2.5 mg/dL Blood 01/28/2025 9:31 PM CDT 01/28/2025 10:21 PM CDT Holly Mix [facility] LAB BLOOD ORDERABLES Final Result Performing Organization Address City/[facility]/ZIP Co de Phone Number [facility] [place] [address] * (ABNORMAL) Basic metabolic panel (01/28/2025 9:31 PM CDT) Sodium 126(L) 135 - 145 mmol/L Potassium, pl 5.3(H) 3.3 - 4.9 mmol/L [facility] Chloride 90(L) 97 - 110 mmol/L [facility] CO2 25 22 - 32 mmol/L [facility] Anion gap 11 2 - 15 mmol/L [facility] BUN 102(H) 6 - 25 mg/dL [facility] Creatinine 2.90(H) 0.60 - 1.10 mg/dL [facility] Glucose 179 70 - 199 mg/dL [facility] Comment: Interpretive Data Fasting glucose >/= 126 [...] 2022. Calcium 8.5 8.5 - 10.3 mg/dL [facility] Blood 01/28/2025 9:31 PM CDT 01/28/2025 10:21 PM CDT us Prabha Lagunas NP LAB BLOOD ORDERABLES Final Result [facility] [address] [facility] [place] [address] * (ABNORMAL) POCT glucose (01/28/2025 8:42 PM CDT) Glucose, POC 200(H) 70 - 199 mg/dL Blood 01/28/2025 8:42 PM CDT 01/28/2025 8:42 PM CDT us Shante Cunningham MD LAB POCT ORDERABLES - DEVICE Fin al Result [facility] [place] [address] * POCT glucose (01/28/2025 5:00 PM CDT) Glucose, POC 174 70 - 199 mg/dL Blood 01/28/2025 5:00 PM CDT 01/28/2025 5:00 PM CDT us Shante Cunningham MD LAB POCT ORDERABLES - DEVICE Fin al Result Performing Organization Address [facility] Co de Phone Number [facility] [place], [place] [id number] * US Vein Duplex Upper Extremity Left Limited, Unilateral (01/28/2025 1:07 PM CDT) Anatomical Region Laterality Modality Vascular Left Ultrasound 01/28/2025 12:3 5 PM CDT Narrative 01/28/2025 8:03 PM CDT [facility] - Department of Vascular Surgery, Vascular Laboratory [address] [place] [address] Upper Extremity Venous Ultrasound Report Patient Name: NEGRITA LINCOLN C : 1950 (74y 2m) Study Date: 01/28/2025 12:35:03 PM Gender: F Tech: [facility] Location: [id number] Ref Provider: PRABHA LAGUNAS Quality: Adequate Order Provider: PRABHA LAGUNAS PROCEDURES: Vascular Report: Venous Duplex imaging was performed in the left upper extremity. The internal jugular, subclavian and axillary veins were evaluated for patency, spontaneity and phasicity with Doppler, compression and augmentation maneuvers. The brachial, basilic and cephalic veins were also evaluated with compression maneuvers. INDICATIONS: Localized edema. FINDINGS: Performing Uranium Processing Supervisor: Porsha Lr RDMS, T. Left: Venous Doppler [...] above. Electronically Signed By: Bao Cuadra MD FACS [phone] 01/28/2025 7:19:13 PM CDT Procedure Note Bao Cuadra MD - 01/28/2025 [facility] - Department of Vascular Surgery,Vascular Laboratory [address] [place] [address] Upper Extremity Venous Ultrasound Report Patient Name: NEGRITA LINCOLN C : 1950 (74y 2m) Study Date: 01/28/2025 12:35:03 PM Gender: F Tech: [facility] Location: [id number] Ref Provider: PRABHA LAGUNAS Quality: Adequate Order Provider: PRABHA LAGUNAS PROCEDURES: Vascular Report: Venous Duplex imaging was performed in the left upper extremity. Theinternal jugular, subclavian and axillary veins were evaluated for patency, spontaneity andphasicity with Doppler, compression and augmentation maneuvers. The brachial, basilic andcephalic veins were also evaluated with compression maneuvers. INDICATIONS: Localized edema. FINDINGS: Performing Uranium Processing Supervisor: Porsha Lr RDMS, T. Left: Venous Doppler [...] above. Electronically Signed By: Bao Cuadra MD [facility] [phone] 01/28/2025 7:19:13 PM CDT us Prabha Lagunas [facility] IMG US PROCEDURES Final Res ult * (ABNORMAL) POCT glucose (01/28/2025 11:42 AM CDT) Glucose, POC 221(H) 70 - 199 mg/dL Blood 01/28/2025 11:4 2 AM CDT 01/28/2025 11:42 AM CDT Shante Cunningham MD LAB POCT ORDERABLES - DEVICE Fin al Result Performing Organization Address City/[facility]/ZIP Co de Phone Number [facility] [place] [address] * POCT glucose (01/28/2025 9:26 AM CDT) Glucose, POC 134 70 - 199 mg/dL Blood 01/28/2025 9:26 AM CDT 01/28/2025 9:26 AM CDT Shante Cunningham MD LAB POCT ORDERABLES - DEVICE Fin al Result Performing Organization Address [facility] Co de Phone Number [facility] [place] [address] * XR Chest PA Lateral 2 Views [...] signed by: Dakota Montero M.D. us Prabha Lagunas [facility] IMG XR PROCEDURES Final Res ult * TRANSTHORACIC ECHO (TTE) COMPLETE W DOPPLER/CF W CONTRAST (01/28/2025 8:50 AM CDT) Anatomical Region Laterality Modality Ultrasound 01/28/2025 7:25 AM CDT Narrative 01/28/2025 9:[address] [facility] [place] [address] Transthoracic Echocardiographic Report Patient Name: NEGRITA LINCOLN C : 1950 (74y 2m) Gender: F Study Date: 01/28/2025 07:25:05 AM Ht(Inch): 64 Wt(Lb): 166.89 BSA: 1.85 Uranium Processing Supervisor: Janet Khanna [facility] Location: [id number] Order Provider: PRABHA LAGUNAS Heart Rate: 69 [...] Procedure Note Neftali Brandon MD - 01/28/2025 [facility] [place] [address] Transthoracic Echocardiographic Report Patient Name: NEGRITA LINCOLN C : 1950 (74y 2m) Gender: F Study Date: 01/28/2025 07:25:05 AM Ht(Inch): 64 Wt(Lb): 166.89 BSA: 1.85 Uranium Processing Supervisor: Janet Khanna [facility] Location: [id number] Order Provider:PRABHA LAGUNAS Heart Rate: 69 BMI: [...] ml/m2 [ 16.00 - 34.00 ] MR KUU310.4 cm RV Base Dimen 2D 5.2 cm [...] Neftali Brandon MD 01/28/2025 9:44:23 AM CDT us Prabha Lagunas NP CV ECHO PROCEDURES Final Re sult * Tacrolimus level trough (01/28/2025 4:24 AM CDT) [facility] Tacrolimus trough 3.7 ng/mL Comment: Interpretive Data Testing performed by liquid chromatography-tandem mass spectrometry. Therapeutic concentrations vary depending on type of transplanted organ and time elapsed since transplant. Typical trough concentrations range from 5-15 ng/mL. This test was developed and its performance characteristics determined by the [facility] consistent with CLIA requirements. This test has not been cleared or approved by the [place] Food and Drug administration. Current interpretive data last reviewed 2020. Blood 01/28/2025 4:24 AM CDT 01/28/2025 5:02 AM CDT Narrative [facility] - 01/28/2025 9:04 AM CDT Please check before administering morning tacrolimus dose Gisselle Sheffield MD LAB BLOOD ORDERABLES Final Re sult Performing Organization Address [facility]/ZIP Co de Phone Number [facility] [place] [address] * (ABNORMAL) Potassium (01/28/2025 4:24 AM CDT) Potassium, pl 5.3(H) 3.3 - 4.9 mmol/L Blood 01/28/2025 4:24 AM CDT 01/28/2025 5:03 AM CDT Holly Mix NP LAB BLOOD ORDERABLES Final Result Performing Organization Address [facility] Co de Phone Number [facility] [place] [address] * POCT glucose (01/28/2025 3:59 AM CDT) Glucose, POC 174 70 - 199 mg/dL Blood 01/28/2025 3:59 AM CDT 01/28/2025 3:59 AM CDT Shante Cunningham MD LAB POCT ORDERABLES - DEVICE Fin al Result Performing Organization Address [facility] Co de Phone Number [facility] [place] [address] * (ABNORMAL) POCT glucose (01/28/2025 12:42 AM CDT) Glucose, POC 255(H) 70 - 199 mg/dL Blood 01/28/2025 12:4 2 AM CDT 01/28/2025 12:42 AM CDT Shante Cunningham MD LAB POCT ORDERABLES - DEVICE Fin al Result Performing Organization Address City/[facility]/ZIP Co de Phone Number [facility] [place] [address] * (ABNORMAL) Sodium, whole blood (01/27/2025 10:43 PM CDT) Pathologist [facility] Sodium, Whole Blood 122(L) 135 - 145 mmol/L Blood 01/27/2025 10:4 3 PM CDT 01/27/2025 11:36 PM CDT Holly Mix NP LAB BLOOD ORDERABLES Final Result Performing Organization Address [facility] de Phone Number [facility] [place] [address] * (ABNORMAL) eGFR (01/27/2025 10:43 PM CDT) Pathologist [facility] eGFR 18(L) >=60 mL/min/1. 73 m2 Comment: [...] MD LAB BLOOD ORDERABLES Final Resul t [facility] [place] [address] * (ABNORMAL) CBC without differential (01/27/2025 10:43 PM CDT) WBC 5.1 3.8 - 9.9 K/cumm Hgb 7.4(L) 11.9 - 15.5 g/dL [facility] Hct 23.2(L) 35.6 - 45.5 % [facility] Plt 170 150 - 400 K/cumm [facility] MPV 9.2 9.1 - 12.3 fL [facility] RBC 2.44(L) 3.90 - 5.20 M/cumm [facility] MCV 95.1 81.3 - 96.4 fL [facility] MCH 30.3 27.1 - 33.3 pg [facility] MCHC 31.9(L) 32.3 - 35.7 g/dL [facility] RDW CV 16.7(H) 11.1 - 14.9 % [facility] RDW SD 58.5(H) 35.7 - 48.1 fL [facility] NRBC abs 0.00 0.00 - 0.01 K/cumm [facility] Blood 01/27/2025 10:4 3 PM CDT 01/27/2025 11:54 PM CDT us Prabha Lagunas NP LAB BLOOD ORDERABLES Final Result [facility] [place] [address] * (ABNORMAL) Phosphorus (01/27/2025 10:43 PM CDT) Pathologist [facility] Phosphorus, pl 4.8(H) 2.3 - 4.5 mg/dL Blood 01/27/2025 10:4 3 PM CDT 01/27/2025 11:39 PM CDT Holly Mix HYDRAULIC RIVETER LAB BLOOD ORDERABLES Final Result Performing Organization Address City/[facility]/ZIP Co de Phone Number [facility] [place] [address] * Magnesium (01/27/2025 10:43 PM CDT) [facility] Magnesium 2.4 1.4 - 2.5 mg/dL Blood 01/27/2025 10:4 3 PM CDT 01/27/2025 11:39 PM CDT Holly Mix HYDRAULIC RIVETER LAB BLOOD ORDERABLES Final Result Performing Organization Address City/[facility] Co de Phone Number [facility] [place] [address] * (ABNORMAL) Basic metabolic panel (01/27/2025 10:43 PM CDT) [facility] Sodium 125(L) 135 - 145 mmol/L Potassium, pl 5.4(H) 3.3 - 4.9 mmol/L [facility] Chloride 89(L) 97 - 110 mmol/L [facility] CO2 24 22 - 32 mmol/L [facility] Anion gap 12 2 - 15 mmol/L [facility] BUN 106(H) 6 - 25 mg/dL [facility] Creatinine 2.66(H) 0.60 - 1.10 mg/dL [facility] Glucose 274(H) 70 - 199 mg/dL [facility] Comment: Interpretive Data Fasting glucose >/= 126 [...] 2022. Calcium 8.1(L) 8.5 - 10.3 mg/dL [facility] Blood 01/27/2025 10:4 3 PM CDT 01/27/2025 11:39 PM CDT us Shante Cunningham MD LAB BLOOD ORDERABLES Final Resul t [facility] [place] [place] [address] * [place]LIN Guidance [place] [id number] (01/27/2025 12:21 PM CDT) Anatomical Region Laterality Modality Echocardiography 01/27/2025 9:03 AM CDT Narrative 01/29/2025 3:[address] [facility] [place] [address] Transesophageal Echocardiographic Report Patient Name: NEGRITA LINCOLN C : 1950 (74y 2m) Gender: F Study Date: 01/27/2025 09:03:50 AM Ht(Inch): Wt(Lb): BSA: Uranium Processing Supervisor: Location: 5634 Order Provider: JESUS SOTO BMI: [...] Procedure Note Jesus Soto MD - 01/29/2025 [facility] Cardiac [place] [address] Transesophageal Echocardiographic Report Patient Name: NEGRITA LINCOLN C : 1950 (74y 2m) Gender: F Study Date: 01/27/2025 09:03:50 AM Ht(Inch): Wt(Lb): BSA: Uranium Processing Supervisor: Location: 5634 Order Provider: JESUS SOTO BMI: [...] PV flow. Mean gradient 1 mmHg. MVA=5.5cm2, K1xoyzil=0.7cm. Tricuspid Valve: There is severe tricuspid regurgitation. [...] by: Maite Quijano M.D. us Prabha Lagunas HYDRAULIC RIVETER IMG XR PROCEDURES Final Res ult * [...] 01/27/2025 11:39 AM CDT us Prabha Lagunas HYDRAULIC RIVETER LAB BLOOD ORDERABLES Final Result [facility] [place] [address] * (ABNORMAL) Differential, auto (01/27/2025 10:56 AM CDT) Neutrophil abs 6.9(H) 1.5 - 6.5 K/cumm Imm gran abs 0.1 0.0 - 0.1 K/cumm [facility] Lymphocyte abs 2.2 0.8 - 3.3 K/cumm [facility] Monocyte abs 1.3(H) 0.2 - 0.8 K/cumm [facility] Eosinophil abs 0.5 0.0 - 0.5 K/cumm [facility] Basophil abs 0.1 0.0 - 0.1 K/cumm [facility] Neutrophil pct 62.6 % [facility] Comment: Interpretive Data Percent cell count reference ranges are not reported, since discordance with absolute values may lead to misinterpretation of CBC data. Current Interpretive Data was last revised on 2018. Imm gran pct 1.1 % [facility] Comment: Interpretive Data Percent cell count reference ranges are not reported, since discordance with absolute values may lead to misinterpretation of CBC data. Current Interpretive Data was last revised on 2018. Lymphocyte pct 19.7 % [facility] Comment: Interpretive Data Percent cell count reference ranges are not reported, since discordance with absolute values may lead to misinterpretation of CBC data. Current Interpretive Data was last revised on 2018. Monocyte pct 11.7 % [facility] Comment: Interpretive Data Percent cell count reference ranges are not reported, since discordance with absolute values may lead to misinterpretation of CBC data. Current Interpretive Data was last revised on 2018. Eosinophil pct 4.4 % [facility] Comment: Interpretive Data Percent cell count reference ranges are not reported, since discordance with absolute values may lead to misinterpretation of CBC data. Current Interpretive Data was last revised on 2018. Basophil pct 0.5 % [facility] Comment: Interpretive Data Percent cell count reference ranges are not reported, since discordance with absolute values may lead to misinterpretation of CBC data. Current Interpretive Data was last revised on 2018. Blood 01/27/2025 10:5 6 AM CDT 01/27/2025 11:34 AM CDT Prabha Lagunas NP LAB BLOOD ORDERABLES Final Result Performing Organization Address City/[facility] Co de Phone Number [facility] [place] [address] * Critical Result Callback Hematology (01/27/2025 10:56 AM CDT) Pathologist [facility] Date Notified [id number] Time Notified 1321 [facility] TestName aPTT [facility] Called/Read Back Danna [facility] Credentials MA [facility] Called By ALISON [facility] Blood 01/27/2025 10:5 6 AM CDT 01/27/2025 11:39 AM CDT Prabha Lagunas NP LAB BLOOD ORDERABLES Final Result Performing Organization Address [facility] de Phone Number [facility] [place] [address] * (ABNORMAL) CBC with auto differential (01/27/2025 10:56 AM CDT) Pathologist [facility] WBC 11.0(H) 3.8 - 9.9 K/cumm Hgb 7.6(L) 11.9 - 15.5 g/dL [facility] Hct 23.2(L) 35.6 - 45.5 % [facility] Plt 163 150 - 400 K/cumm [facility] MPV 8.8(L) 9.1 - 12.3 fL [facility] RBC 2.48(L) 3.90 - 5.20 M/cumm [facility] MCV 93.5 81.3 - 96.4 fL [facility] MCH 30.6 27.1 - 33.3 pg [facility] MCHC 32.8 32.3 - 35.7 g/dL [facility] RDW CV 16.6(H) 11.1 - 14.9 % [facility] RDW SD 57.0(H) 35.7 - 48.1 fL [facility] NRBC abs 0.00 0.00 - 0.01 K/cumm [facility] Blood 01/27/2025 10:5 6 AM CDT 01/27/2025 11:34 AM CDT Prabha Lagunas NP LAB BLOOD ORDERABLES Final Result Performing Organization Address [facility] de Phone Number [facility] [place] [address] * (ABNORMAL) aPTT (01/27/2025 10:56 AM CDT) aPTT >150(C) 28 - 38 sec Comment: verified. Interpretive Data Heparin therapeutic range: 66.0 - 100.0 seconds. Range based on correlation with therapeutic heparin activity range of 0.3 - 0.7 Units/mL. Current interpretive data was last revised on 2023. Blood 01/27/2025 10:5 6 AM CDT 01/27/2025 11:34 AM CDT Prabha Lagunas NP LAB BLOOD ORDERABLES Final Result Performing Organization Address City/[facility] Co de Phone Number [facility] [place] [address] * (ABNORMAL) Protime-INR (01/27/2025 10:56 AM CDT) PT 13.6(H) 9.7 - 13.0 sec INR 1.25(H) 0.90 - 1.20 [facility] Comment: Interpretive data Oral anticoagulant therapeutic ranges: Venous thromboembolism prophylaxis or treatment: 2.0-3.0 CARDIOLOGY Standard range: 2.0-3.0 High-intensity range: 2.5-3.5 Refer to indication-specific guidelines for appropriate target ranges for prosthetic heart valve replacement. Current interpretive data was last revised on 2019. Blood 01/27/2025 10:5 6 AM CDT 01/27/2025 11:34 AM CDT Prabha Lagunas HYDRAULIC RIVETER LAB BLOOD ORDERABLES Final Result [facility] [place] [address] * Magnesium (01/27/2025 10:56 AM CDT) [facility] Magnesium 2.3 1.4 - 2.5 mg/dL Blood 01/27/2025 10:5 6 AM CDT 01/27/2025 11:35 AM CDT Prabha Lagunas HYDRAULIC RIVETER LAB BLOOD ORDERABLES Final Result Performing Organization Address City/[facility] de Phone Number [facility] [place] [address] * (ABNORMAL) Comprehensive metabolic panel (01/27/2025 10:56 AM CDT) Pathologist [facility] Sodium 126(L) 135 - 145 mmol/L Potassium, pl 4.7 3.3 - 4.9 mmol/L [facility] Chloride 91(L) 97 - 110 mmol/L [facility] CO2 25 22 - 32 mmol/L [facility] Anion gap 10 2 - 15 mmol/L [facility] BUN 107(H) 6 - 25 mg/dL [facility] Creatinine 2.64(H) 0.60 - 1.10 mg/dL [facility] Glucose 104 70 - 199 mg/dL [facility] Comment: Interpretive Data Fasting glucose >/= 126 [...] 2022. Calcium 8.0(L) 8.5 - 10.3 mg/dL [facility] Bilirubin, total 0.3 0.1 - 1.2 mg/dL [facility] Protein, pl 5.6(L) 6.5 - 8.5 g/dL [facility] Albumin 2.8(L) 3.5 - 5.0 g/dL [facility] Alk phos 50 40 - 130 Units/L [facility] ALT 11 7 - 45 Units/L [facility] AST 18 10 - 45 Units/L [facility] Blood 01/27/2025 10:5 6 AM CDT 01/27/2025 11:35 AM CDT us Prabha Lagunas HYDRAULIC RIVETER LAB BLOOD ORDERABLES Final Result Performing Organization Address City/[facility]/ZIP Co de Phone Number [facility] [place] [address] * (ABNORMAL) POCT Activated clotting time, low range (01/27/2025 10:46 AM CDT) ACT 282(H) 123 - 168 sec POC Performer 1577 [facility] POC Device Number [id number] [facility] Blood 01/27/2025 10:4 6 AM CDT 01/27/2025 10:46 AM CDT us Shante Cunningham MD LAB POCT ORDERABLES - DEVICE Fin al Result Performing Organization Address City/[facility]/ZIP Co de Phone Number [facility] [place] [address] * MITRAL VALVE REPAIR WITH CLIP PROSTHESIS [...] Clip 3. Transesophageal echocardiogram performed by Dr Soto Indications: 1. Severe Mitral Regurgitation Type of [...] obtained. The patient was brought to the laborer wrecking and salvaging and placed on the table Bilateral groins [...] successfully closed and hemostasis achieved by a [id number] stitch in manual compression Patient was transferred [...] the right common femoral vein an 8 Vincentian sheath inserted. A small amount of heparin was administered and using the StoredIQ versus across system and FRANKLIN guidance, a transseptal puncture was performed. The versicross wire was placed and the vein dilated up with an 20 Vincentian dilator. The MitraClip sheath was prepped on [...] were pulled back into the IVC and [id number] secured the sheath as it was [...] postop anesthesia recovery area 4. Transfer to [facility] [place]/7200 Bryan English MD Gisselle Sheffield MD CV CARDIAC CATH PROCEDURES Fi nal Result * (ABNORMAL) POCT Activated clotting time, low range (01/27/2025 10:23 AM CDT) ACT 295(H) 123 - 168 sec POC Performer 1577 [facility] POC Device Number [id number] [facility] Blood 01/27/2025 10:2 3 AM CDT 01/27/2025 10:23 AM CDT Shante Cunningham MD LAB POCT ORDERABLES - DEVICE Fin al Result Performing Organization Address [facility]/ZIP Co de Phone Number [facility] [place] [address] * (ABNORMAL) POCT Activated clotting time, low range (01/27/2025 10:13 AM CDT) ACT 260(H) 123 - 168 sec POC Performer 1577 [facility] POC Device Number [id number] [facility] Blood 01/27/2025 10:1 3 AM CDT 01/27/2025 10:13 AM CDT Shante Cunningham MD LAB POCT ORDERABLES - DEVICE Fin al Result Performing Organization Address [facility]/ZIP Co de Phone Number [facility] [place] [address] * (ABNORMAL) POCT Activated clotting time, low range (01/27/2025 9:49 AM CDT) ACT 316(H) 123 - 168 sec POC Performer 1577 [facility] POC Device Number [id number] [facility] Blood 01/27/2025 9:49 AM CDT 01/27/2025 9:49 AM CDT us Shante Cunningham MD LAB POCT ORDERABLES - DEVICE Fin al Result [facility] [place] [address] * NM AN ELECTIVE ENDOTRACHEAL AIRWAY, NM AN PROCEDURE PLACEHOLDER (01/27/2025 9:28 AM CDT) Narrative Mayi March CRNA - 01/27/2025 9:28 AM CDT Mayi March CRNA 01/27/2025 9:40 AM Airway Patient location: OR Urgency: elective Indications for airway management: anesthesia Difficult airway: no Staff: Placed by: DIRECTOR OF SEARCH ENGINE OPTIMIZATION: Mayi March CRNA Emergent airway documentation: Risks [...] ORDERABLES Final R esult Performing Organization Address City/[facility]/ZIP Co de Phone Number [facility] [place] [address] * Prepare RBC: 2 Units (01/27/2025 6:42 AM CDT) Product code [id number] Unit Number [id number] 0-I [facility] Product Blood Type BPOS [facility] BJ Dispense Status RETURNED [facility] Product code [id number] [facility] Unit Number [id number] 1-[address] [facility] Product Blood Type BPOS CERNER BJ Dispense Status RETURNED [facility] Blood 01/27/2025 6:42 AM CDT 01/27/2025 6:41 AM CDT Narrative [facility] - 01/27/2025 11:48 AM CDT Specify Procedure:->mitral valve repair with clip Are special requirements needed? (All products are leukoreduced and CMV- safe)->No us Karrie Briggs NP BLOOD BANK PRODUCT ORDERABLES Fi nal Result Performing Organization Address [facility] Co de Phone Number [facility] [place] [address] * (ABNORMAL) eGFR (01/27/2025 3:33 AM CDT) [facility] eGFR 17(L) >=60 mL/min/1. 73 m2 Comment: Interpretive Data Reference Interval Normal >/= 90 mL/min/1.73m2 Mildly decreased* 60 - 89 mL/min/1.73m2 Mildly to moderately decreased 45 - 59 mL/min/1.73m2 Moderately to severely decreased 30 - 44 mL/min/1.73m2 Severely decreased 15 - 29 mL/min/1.73m2 Kidney Failure < 15 mL/min/1.73m2 *Relative to young adult level Estimated glomerular filtration rate is determined by the 2021 CKD-EPI equation recommended by the National Kidney [...] ORDERABLES Final Re sult Performing Organization Address [facility] Co de Phone Number [facility] [place] [address] * Tacrolimus level trough (01/27/2025 3:33 AM CDT) Pathologist [facility] Tacrolimus trough 5.1 ng/mL Comment: Interpretive Data Testing performed by liquid chromatography-tandem mass spectrometry. Therapeutic concentrations vary depending on type of transplanted organ and time elapsed since transplant. Typical trough concentrations range from 5-15 ng/mL. This test was developed and its performance characteristics determined by the [facility] consistent with CLIA requirements. This test has not been cleared or approved by the [place] Food and Drug administration. Current interpretive data last reviewed 2020. Blood 01/27/2025 3:33 AM CDT 01/27/2025 4:[address] [facility] - 01/27/2025 7:43 AM CDT Please check before administering morning tacrolimus dose Gisselle Sheffield MD LAB BLOOD ORDERABLES Final Re sult Performing Organization Address [facility] Co de Phone Number [facility] [place] [address] * (ABNORMAL) CBC without differential (01/27/2025 3:33 AM CDT) Pathologist [facility] WBC 8.3 3.8 - 9.9 K/cumm Hgb 7.2(L) 11.9 - 15.5 g/dL [facility] Hct 22.4(L) 35.6 - 45.5 % [facility] Plt 158 150 - 400 K/cumm [facility] MPV 9.2 9.1 - 12.3 fL [facility] RBC 2.38(L) 3.90 - 5.20 M/cumm [facility] MCV 94.1 81.3 - 96.4 fL [facility] MCH 30.3 27.1 - 33.3 pg [facility] MCHC 32.1(L) 32.3 - 35.7 g/dL [facility] RDW CV 16.6(H) 11.1 - 14.9 % [facility] RDW SD 57.1(H) 35.7 - 48.1 fL [facility] NRBC abs 0.00 0.00 - 0.01 K/cumm [facility] Blood 01/27/2025 3:33 AM CDT 01/27/2025 4:49 AM CDT Gisselle Sheffield MD LAB BLOOD ORDERABLES Final Re sult Performing Organization Address City/[facility]/ZIP Co de Phone Number [facility] [place] [address] * (ABNORMAL) Phosphorus (01/27/2025 3:33 AM CDT) [facility] Phosphorus, pl 5.0(H) 2.3 - 4.5 mg/dL Blood 01/27/2025 3:33 AM CDT 01/27/2025 4:49 AM CDT Gisselle Sheffield MD LAB BLOOD ORDERABLES Final Re sult [facility] [place] [address] * Magnesium (01/27/2025 3:33 AM CDT) [facility] Magnesium 2.5 1.4 - 2.5 mg/dL Blood 01/27/2025 3:33 AM CDT 01/27/2025 4:49 AM CDT Gisselle Sheffield MD LAB BLOOD ORDERABLES Final Re sult [facility] [place] [address] * (ABNORMAL) Basic metabolic panel (01/27/2025 3:33 AM CDT) [facility] Sodium 128(L) 135 - 145 mmol/L Potassium, pl 5.4(H) 3.3 - 4.9 mmol/L [facility] Chloride 90(L) 97 - 110 mmol/L [facility] CO2 27 22 - 32 mmol/L [facility] Anion gap 11 2 - 15 mmol/L [facility] BUN 105(H) 6 - 25 mg/dL [facility] Creatinine 2.79(H) 0.60 - 1.10 mg/dL [facility] Glucose 93 70 - 199 mg/dL [facility] Comment: Interpretive Data Fasting glucose >/= 126 [...] 2022. Calcium 8.2(L) 8.5 - 10.3 mg/dL [facility] Blood 01/27/2025 3:33 AM CDT 01/27/2025 4:49 AM CDT Gisselle Sheffield MD LAB BLOOD ORDERABLES Final [facility] [place] [address] * (ABNORMAL) Sodium, whole blood (01/26/2025 8:41 PM CDT) Sodium, Whole Blood 125(L) 135 - 145 mmol/L Blood 01/26/2025 8:41 PM CDT 01/26/2025 9:19 PM CDT Klever Mejia MD LAB BLOOD ORDERABLES Final Result [facility] [place] [address] * XR Chest 1 View (01/26/2025 3:31 [...] Sodium, whole blood (01/26/2025 6:05 AM CDT) Pathologist [facility] Sodium, Whole Blood 122(L) 135 - 145 mmol/L Blood 01/26/2025 6:05 AM CDT 01/26/2025 6:23 AM CDT Klever Mejia MD LAB BLOOD ORDERABLES Final Result Performing Organization Address [facility]/ZIP Co de Phone Number [facility] [place] [address] * Potassium, whole blood (01/26/2025 6:05 AM CDT) [facility] Potassium, bld 4.9 3.3 - 4.9 mmol/L Blood 01/26/2025 6:05 AM CDT 01/26/2025 6:23 AM CDT Klever Mejia MD LAB BLOOD ORDERABLES Final Result [facility] [place] [address] * Type and screen (01/26/2025 6:05 AM CDT) Pathologist [facility] Demetria, indirect Negative ABO Rh B Positive [facility] Blood 01/26/2025 6:05 AM CDT 01/26/2025 6:34 AM CDT Narrative [facility] - 01/26/2025 7:34 AM CDT Has the patient had Daratumumab or Isatuximab in the past 6 months?->Unknown Gisselle hSeffield MD LAB BLOOD BANK TEST ORDERABLE S Final Result Performing Organization Address City/[facility]/ZIP Co de Phone Number [facility] [place] [address] * (ABNORMAL) eGFR (01/26/2025 4:15 AM CDT) eGFR 18(L) >=60 mL/min/1. 73 [...] 4:15 AM CDT 01/26/2025 4:46 AM CDT us Gisselle Sheffield MD LAB BLOOD ORDERABLES Final Re sult [facility] [place] [address] * Tacrolimus level trough (01/26/2025 4:15 AM CDT) Tacrolimus trough 5.2 ng/mL Comment: Interpretive Data Testing performed by liquid chromatography-tandem mass spectrometry. Therapeutic concentrations vary depending on type of transplanted organ and time elapsed since transplant. Typical trough concentrations range from 5-15 ng/mL. This test was developed and its performance characteristics determined by the [facility] consistent with CLIA requirements. This test has not been cleared or approved by the [place] Food and Drug administration. Current interpretive data last reviewed 2020. Blood 01/26/2025 4:15 AM CDT 01/26/2025 4:46 AM CDT Narrative [facility] - 01/26/2025 8:29 AM CDT Please check before administering morning tacrolimus dose Gisselle Sheffield MD LAB BLOOD ORDERABLES Final Re sult [facility] [place] [address] * (ABNORMAL) CBC without differential (01/26/2025 4:15 AM CDT) WBC 8.1 3.8 - 9.9 K/cumm Hgb 7.5(L) 11.9 - 15.5 g/dL [facility] Hct 23.0(L) 35.6 - 45.5 % [facility] Plt 159 150 - 400 K/cumm [facility] MPV 8.8(L) 9.1 - 12.3 fL [facility] RBC 2.45(L) 3.90 - 5.20 M/cumm [facility] MCV 93.9 81.3 - 96.4 fL [facility] MCH 30.6 27.1 - 33.3 pg [facility] MCHC 32.6 32.3 - 35.7 g/dL [facility] RDW CV 16.3(H) 11.1 - 14.9 % [facility] RDW SD 55.8(H) 35.7 - 48.1 fL [facility] NRBC abs 0.00 0.00 - 0.01 K/cumm [facility] Blood 01/26/2025 4:15 AM CDT 01/26/2025 4:46 AM CDT Gisselle Sheffield MD LAB BLOOD ORDERABLES Final Re sult Performing Organization Address [facility] Co de Phone Number [facility] [place] [address] * (ABNORMAL) Phosphorus (01/26/2025 4:15 AM CDT) [facility] Phosphorus, pl 4.6(H) 2.3 - 4.5 mg/dL Blood 01/26/2025 4:15 AM CDT 01/26/2025 4:46 AM CDT Gisselle Sheffield MD LAB BLOOD ORDERABLES Final Re sult Performing Organization Address [facility] Co de Phone Number [facility] [place] [address] * Magnesium (01/26/2025 4:15 AM CDT) [facility] Magnesium 2.4 1.4 - 2.5 mg/dL Blood 01/26/2025 4:15 AM CDT 01/26/2025 4:46 AM CDT Gisselle Sheffield MD LAB BLOOD ORDERABLES Final Re sult Performing Organization Address [facility] Co de Phone Number [facility] [place] [address] * (ABNORMAL) Basic metabolic panel (01/26/2025 4:15 AM CDT) [facility] Sodium 125(L) 135 - 145 mmol/L Potassium, pl 5.5(H) 3.3 - 4.9 mmol/L [facility] Chloride 88(L) 97 - 110 mmol/L [facility] CO2 25 22 - 32 mmol/L [facility] Anion gap 12 2 - 15 mmol/L [facility] BUN 114(H) 6 - 25 mg/dL [facility] Creatinine 2.73(H) 0.60 - 1.10 mg/dL [facility] Glucose 93 70 - 199 mg/dL [facility] Comment: Interpretive Data Fasting glucose >/= 126 [...] 2022. Calcium 7.9(L) 8.5 - 10.3 mg/dL [facility] Blood 01/26/2025 4:15 AM CDT 01/26/2025 4:46 AM CDT Gisselle Sheffield MD LAB BLOOD ORDERABLES Final Re sult [facility] [place] [address] * (ABNORMAL) Sodium, whole blood (01/26/2025 12:05 AM CDT) Sodium, Whole Blood 123(L) 135 - 145 mmol/L Blood 01/26/2025 12:0 5 AM CDT 01/26/2025 1:16 AM CDT us Klever Mejia MD LAB BLOOD ORDERABLES Final Result [facility] [place] [address] * (ABNORMAL) Sodium, whole blood (01/25/2025 6:24 PM CDT) Sodium, Whole Blood 122(L) 135 - 145 mmol/L Blood 01/25/2025 6:24 PM CDT 01/25/2025 8:17 PM CDT Klever Mejia MD LAB BLOOD ORDERABLES Final Result [facility] [place] [address] * Osmolality, urine (01/25/2025 6:24 PM CDT) Osmo, ur 304 mOsm/kg Urine 01/25/2025 6:24 PM CDT 01/25/2025 6:49 PM CDT Klever Mejia MD LAB URINE ORDERABLES Final Result Performing Organization Address [facility] de Phone Number [facility] [place] [address] * (ABNORMAL) Immunoglobulin free light chains (01/25/2025 4:17 PM CDT) Pathologist [facility] [place]/Lambda ratio [facility] 0.85 0.26 - 1.65 Comment: Interpretive Data The Binding Site FreeLite assay procedure was used. Results from different manufacturers or methods may not be comparable. Serial testing should be performed using the same methods and instrumentation. Current Interpretive Data was last revised on 2024. [place] free light chain BJ 8.65(H) 0.33 - 1.94 mg/dL [facility] Comment: Interpretive Data The Binding Site FreeLite assay procedure was used. Results from different manufacturers or methods may not be comparable. Serial testing should be performed using the same methods and instrumentation. Current Interpretive Data was last revised on 2024. Lambda free light chain BJ 10.23(H) 0.57 - 2.63 mg/dL [facility] Comment: Interpretive Data The Binding Site FreeLite assay procedure was used. Results from different manufacturers or methods may not be comparable. Serial testing should be performed using the same methods and instrumentation. Current Interpretive Data was last revised on 2024. Blood 01/25/2025 4:17 PM CDT 01/25/2025 4:54 PM CDT Klever Mejia MD LAB BLOOD ORDERABLES Final Result Performing Organization Address City/[facility]/ZIP Co de Phone Number [facility] [place] [address] * (ABNORMAL) Protein electrophoresis with reflex, serum with interpretation (01/25/2025 4:17 PM CDT) Pathologist [facility] Protein, sr 6.0(L) 6.2 - 8.2 g/dL Albumin 3.1(L) 3.2 - 5.0 g/dL [facility] Alpha-1 globulin 0.4 0.2 - 0.4 g/dL [facility] Alpha-2 globulin 0.7 0.5 - 1.0 g/dL [facility] Beta-1 globulin 0.4 0.3 - 0.6 g/dL [facility] Beta-2 globulin 0.4 0.2 - 0.6 g/dL [facility] Gamma globulin 1.1 0.5 - 1.7 g/dL [facility] Rstr Pk Beta-2 0.1(H) 0.0 - 0.0 g/dL [facility] Rstr Pk Gamma 0.2(H) 0.0 - 0.0 g/dL [facility] SPEP interp Please see comment [facility] Comment: Abnormal restricted peak in Gamma region Abnormal restricted peak in beta 2 region Electrophoretic pattern appears similar to previous sample 05/16/2024 Reviewed and signed by Cameron Rider MD, PhD 01/27/2025 Blood 01/25/2025 4:17 PM CDT 01/25/2025 4:54 PM CDT Klever Mejia MD LAB BLOOD ORDERABLES Final Result Performing Organization Address [facility] Co de Phone Number [facility] [place] [address] * Sodium, urine, random (01/25/2025 11:39 AM CDT) Sodium, ur <20 mmol/L Comment: Repeated and Verified Interpretive Data No reference range established. Current interpretive data was last revised 2019. Urine 01/25/2025 11:3 9 AM CDT 01/25/2025 11:51 AM CDT Klever Mejia MD LAB URINE ORDERABLES Final Result Performing Organization Address [facility] Co de Phone Number [facility] [place] [address] * Potassium, urine, random (01/25/2025 11:39 AM CDT) Potassium conc, ur 21.5 mmol/L Comment: Interpretive Data No reference range established. Current interpretive data was last revised 2019. Urine 01/25/2025 11:3 9 AM CDT 01/25/2025 11:51 AM CDT Klever Mejia MD LAB URINE ORDERABLES Final Result Performing Organization Address [facility] de Phone Number [facility] [place] [address] * Osmolality, urine (01/25/2025 11:39 AM CDT) Osmo, ur 275 mOsm/kg Urine 01/25/2025 11:3 9 AM CDT 01/25/2025 11:51 AM CDT Marino Wynn MD LAB URINE ORDERABLES Мария l Result Performing Organization Address [facility] de Phone Number [facility] [place] [address] * (ABNORMAL) Sodium, whole blood (01/25/2025 11:06 AM CDT) Sodium, Whole Blood 124(L) 135 - 145 mmol/L Blood 01/25/2025 11:0 6 AM CDT 01/25/2025 11:51 AM CDT Klever Mejia MD LAB BLOOD ORDERABLES Final Result Performing Organization Address [facility] de Phone Number [facility] [place] [address] * Osmolality, blood (01/25/2025 11:06 AM CDT) [facility] Osmo 295 275 - 300 mOsm/kg Blood 01/25/2025 11:0 6 AM CDT 01/25/2025 12:05 PM CDT Klever Mejia MD LAB BLOOD ORDERABLES Final Result Performing Organization Address [facility] Phone Number [facility] [place] [address] * Potassium, whole blood (01/25/2025 10:15 AM CDT) [facility] Potassium, bld 4.5 3.3 - 4.9 mmol/L Blood 01/25/2025 10:1 5 AM CDT 01/25/2025 11:10 AM CDT Klever Mejia MD LAB BLOOD ORDERABLES Final Result Performing Organization Address [facility] de Phone Number [facility] [place] [address] * (ABNORMAL) eGFR (01/25/2025 10:15 AM CDT) [facility] eGFR 18(L) >=60 mL/min/1. 73 m2 Comment: [...] Mejia MD LAB BLOOD ORDERABLES Final Result [facility] [place] [address] * (ABNORMAL) Basic metabolic panel (01/25/2025 10:15 AM CDT) Sodium 121(L) 135 - 145 mmol/L Potassium, pl 4.5 3.3 - 4.9 mmol/L [facility] Chloride 83(L) 97 - 110 mmol/L [facility] CO2 26 22 - 32 mmol/L [facility] Anion gap 12 2 - 15 mmol/L [facility] BUN 115(H) 6 - 25 mg/dL [facility] Creatinine 2.73(H) 0.60 - 1.10 mg/dL [facility] Glucose 159 70 - 199 mg/dL [facility] Comment: Interpretive Data Fasting glucose >/= 126 [...] 2022. Calcium 7.8(L) 8.5 - 10.3 mg/dL [facility] Blood 01/25/2025 10:1 5 AM CDT 01/25/2025 11:13 AM CDT Klever Mejia MD LAB BLOOD ORDERABLES Final Result Performing Organization Address [facility]/ZIP Co de Phone Number [facility] [place] [address] * (ABNORMAL) eGFR (01/25/2025 4:35 AM CDT) [...] AM CDT 01/25/2025 5:11 AM CDT us Gisselle Sheffield MD LAB BLOOD ORDERABLES Final Re sult Performing Organization Address City/[facility]/ZIP Co de Phone Number [facility] [place] [address] * Tacrolimus level trough (01/25/2025 4:35 AM CDT) Pathologist [facility] Tacrolimus trough 4.3 ng/mL Comment: Interpretive Data Testing performed by liquid chromatography-tandem mass spectrometry. Therapeutic concentrations vary depending on type of transplanted organ and time elapsed since transplant. Typical trough concentrations range from 5-15 ng/mL. This test was developed and its performance characteristics determined by the [facility] consistent with CLIA requirements. This test has not been cleared or approved by the [place] Food and Drug administration. Current interpretive data last reviewed 2020. Blood 01/25/2025 4:35 AM CDT 01/25/2025 5:12 AM CDT Narrative [facility] - 01/25/2025 8:45 AM CDT Please check before administering morning tacrolimus dose Gisselle Sheffield MD LAB BLOOD ORDERABLES Final Re sult Performing Organization Address City/[facility]/ZIP Co de Phone Number [facility] [place] [address] * (ABNORMAL) Iron profile w/ IBC (01/25/2025 4:35 AM CDT) [facility] Iron 34(L) 35 - 145 mcg/dL TIBC 149(L) 250 - 400 mcg/dL [facility] Transferrin saturation 23 20 - 50 % [facility] Blood 01/25/2025 4:35 AM CDT 01/25/2025 5:11 AM CDT Klever Mejia MD LAB BLOOD ORDERABLES Edite d Result - Final [facility] [place] [address] * (ABNORMAL) CBC without differential (01/25/2025 4:35 AM CDT) [facility] WBC 9.2 3.8 - 9.9 K/cumm Hgb 7.8(L) 11.9 - 15.5 g/dL [facility] Hct 23.7(L) 35.6 - 45.5 % [facility] Plt 171 150 - 400 K/cumm [facility] MPV 9.1 9.1 - 12.3 fL [facility] RBC 2.54(L) 3.90 - 5.20 M/cumm [facility] MCV 93.3 81.3 - 96.4 fL [facility] MCH 30.7 27.1 - 33.3 pg [facility] MCHC 32.9 32.3 - 35.7 g/dL [facility] RDW CV 16.5(H) 11.1 - 14.9 % [facility] RDW SD 56.5(H) 35.7 - 48.1 fL [facility] NRBC abs 0.00 0.00 - 0.01 K/cumm [facility] Blood 01/25/2025 4:35 AM CDT 01/25/2025 5:12 AM CDT Gisselle Sheffield MD LAB BLOOD ORDERABLES Final Re sult Performing Organization Address City/[facility]/ZIP Co de Phone Number [facility] [place] [address] * (ABNORMAL) Phosphorus (01/25/2025 4:35 AM CDT) [facility] Phosphorus, pl 4.7(H) 2.3 - 4.5 mg/dL Blood 01/25/2025 4:35 AM CDT 01/25/2025 5:11 AM CDT Gisselle Sheffield MD LAB BLOOD ORDERABLES Final Re sult [facility] [place] [address] * Osmolality, blood (01/25/2025 4:35 AM CDT) Osmo 288 275 - 300 mOsm/kg Blood 01/25/2025 4:35 AM CDT 01/25/2025 5:11 AM CDT Klever Mejia MD LAB BLOOD ORDERABLES Final Result Performing Organization Address [facility]/ZIP Co de Phone Number [facility] [place] [address] * Magnesium (01/25/2025 4:35 AM CDT) Magnesium 2.2 1.4 - 2.5 mg/dL Blood 01/25/2025 4:35 AM CDT 01/25/2025 5:11 AM CDT Gisselle Sheffield MD LAB BLOOD ORDERABLES Final Re sult Performing Organization Address [facility] Co de Phone Number [facility] [place] [address] * Lactate dehydrogenase (LD) (01/25/2025 4:35 AM CDT) Lactate dehydrogenase (LDH) 242 100 - 250 Units/L Blood 01/25/2025 4:35 AM CDT 01/25/2025 5:11 AM CDT Klever Mejia MD LAB BLOOD ORDERABLES Edite d Result - Final Performing Organization Address [facility]/ZIP Co de Phone Number [facility] [place] [address] * Haptoglobin (01/25/2025 4:35 AM CDT) Haptoglobin 126.0 30.0 - 200.0 mg/dL Blood 01/25/2025 4:3 5 AM CDT 01/25/2025 5:11 AM CDT Klever Mejia MD LAB BLOOD ORDERABLES Final Result [facility] [place] [address] * (ABNORMAL) Ferritin (01/25/2025 4:35 AM CDT) Pathologist [facility] Ferritin 841(H) 13 - 150 ng/mL Blood 01/25/2025 4:35 AM CDT 01/25/2025 5:11 AM CDT Klever Mejia MD LAB BLOOD ORDERABLES Edite d Result - Final Performing Organization Address [facility] Co de Phone Number [facility] [place] [address] * (ABNORMAL) Hepatic function panel (01/25/2025 4:35 AM CDT) [facility] Bilirubin, total 0.4 0.1 - 1.2 mg/dL Bilirubin, direct <0.2 0.1 - 0.3 mg/dL [facility] Protein, pl 6.1(L) 6.5 - 8.5 g/dL [facility] Albumin 3.1(L) 3.5 - 5.0 g/dL [facility] Alk phos 58 40 - 130 Units/L [facility] ALT 13 7 - 45 Units/L [facility] AST 19 10 - 45 Units/L [facility] Blood 01/25/2025 4:35 AM CDT 01/25/2025 5:11 AM CDT Linda Harden MD LAB BLOOD ORDERABLES F inal Result [facility] [place] [address] * (ABNORMAL) Basic metabolic panel (01/25/2025 4:35 AM CDT) Pathologist [facility] Sodium 121(L) 135 - 145 mmol/L Potassium, pl 5.3(H) 3.3 - 4.9 mmol/L [facility] Chloride 86(L) 97 - 110 mmol/L [facility] CO2 25 22 - 32 mmol/L [facility] Anion gap 10 2 - 15 mmol/L [facility] BUN 109(H) 6 - 25 mg/dL [facility] Creatinine 2.77(H) 0.60 - 1.10 mg/dL [facility] Glucose 73 70 - 199 mg/dL [facility] Comment: Interpretive Data Fasting glucose >/= 126 [...] 2022. Calcium 7.9(L) 8.5 - 10.3 mg/dL [facility] Blood 01/25/2025 4:35 AM CDT 01/25/2025 5:11 AM CDT Gisselle Sheffield MD LAB BLOOD ORDERABLES Final Re sult [facility] [place] [address] * Infection Prevention Pancho auris PCR, surveillance Axilla/Groin (01/24/2025 9:10 AM CDT) [facility] Pancho auris DNA Not Detected Not Detected [facility] Comment: Interpretive Data Testing performed by [facility] using the Luz viji [id number] Pancho auris assay. This assay detects DNA from Pancho auris using Real-Time PCR. This assay is laboratory developed and is not cleared by the [place] Food and Drug Administration. The performance characteristics have been verified by the [facility]. Axilla/Groin 01/24/2025 9:10 AM CDT 01/24/2025 9:43 AM CDT Hoang Son MD LAB MICROBIOLOGY - GENERAL ORDER FILI Final Result Performing Organization Address City/[facility]/ZIP Co de Phone Number [facility] [place] [address] [facility] * (ABNORMAL) eGFR (01/24/2025 5:43 AM CDT) [...] 5:43 AM CDT 01/24/2025 6:20 AM CDT us Gisselle Sheffield MD LAB BLOOD ORDERABLES Final Re sult [facility] [place] [address] * Tacrolimus level trough (01/24/2025 5:43 AM CDT) Tacrolimus trough 3.2 ng/mL Comment: Interpretive Data Testing performed by liquid chromatography-tandem mass spectrometry. Therapeutic concentrations vary depending on type of transplanted organ and time elapsed since transplant. Typical trough concentrations range from 5-15 ng/mL. This test was developed and its performance characteristics determined by the [facility] consistent with CLIA requirements. This test has not been cleared or approved by the [place] Food and Drug administration. Current interpretive data last reviewed 2020. Blood 01/24/2025 5:43 AM CDT 01/24/2025 6:20 AM CDT Narrative [facility] - 01/24/2025 11:05 AM CDT Please check before administering morning tacrolimus dose us Gisselle Sheffield MD LAB BLOOD ORDERABLES Final Re sult [facility] [place] [address] * (ABNORMAL) CBC without differential (01/24/2025 5:43 AM CDT) [facility] WBC 7.1 3.8 - 9.9 K/cumm Hgb 7.2(L) 11.9 - 15.5 g/dL [facility] Hct 22.1(L) 35.6 - 45.5 % [facility] Plt 150 150 - 400 K/cumm [facility] MPV 9.0(L) 9.1 - 12.3 fL [facility] RBC 2.37(L) 3.90 - 5.20 M/cumm [facility] MCV 93.2 81.3 - 96.4 fL [facility] MCH 30.4 27.1 - 33.3 pg [facility] MCHC 32.6 32.3 - 35.7 g/dL [facility] RDW CV 16.5(H) 11.1 - 14.9 % [facility] RDW SD 56.0(H) 35.7 - 48.1 fL [facility] NRBC abs 0.00 0.00 - 0.01 K/cumm [facility] Blood 01/24/2025 5:43 AM CDT 01/24/2025 6:20 AM CDT Gisselle Sheffield MD LAB BLOOD ORDERABLES Final Re sult Performing Organization Address [facility] de Phone Number [facility] [place] [address] * (ABNORMAL) Phosphorus (01/24/2025 5:43 AM CDT) [facility] Phosphorus, pl 5.1(H) 2.3 - 4.5 mg/dL Blood 01/24/2025 5:43 AM CDT 01/24/2025 6:20 AM CDT Gisselle Sheffield MD LAB BLOOD ORDERABLES Final Re sult Performing Organization Address [facility] de Phone Number [facility] [place] [address] * Magnesium (01/24/2025 5:43 AM CDT) [facility] Magnesium 2.3 1.4 - 2.5 mg/dL Blood 01/24/2025 5:43 AM CDT 01/24/2025 6:20 AM CDT Gisselle Sheffield MD LAB BLOOD ORDERABLES Final Re sult Performing Organization Address [facility] [place] [address] * (ABNORMAL) Basic metabolic panel (01/24/2025 5:43 AM CDT) [facility] Sodium 124(L) 135 - 145 mmol/L Potassium, pl 4.9 3.3 - 4.9 mmol/L [facility] Chloride 87(L) 97 - 110 mmol/L [facility] CO2 27 22 - 32 mmol/L [facility] Anion gap 10 2 - 15 mmol/L [facility] BUN 100(H) 6 - 25 mg/dL [facility] Creatinine 2.72(H) 0.60 - 1.10 mg/dL [facility] Glucose 71 70 - 199 mg/dL [facility] Comment: Interpretive Data Fasting glucose >/= 126 [...] 2022. Calcium 7.2(L) 8.5 - 10.3 mg/dL [facility] Blood 01/24/2025 5:43 AM CDT 01/24/2025 6:20 AM CDT us Gisselle Sheffield MD LAB BLOOD ORDERABLES Final Re sult [facility] [place] [address] * (ABNORMAL) eGFR (01/23/2025 6:05 AM CDT) [...] ORDERABLES Final Re sult Performing Organization Address [facility] Co de Phone Number [facility] [place] [address] * Tacrolimus level trough (01/23/2025 6:05 AM CDT) Pathologist [facility] Tacrolimus trough 3.7 ng/mL Comment: Interpretive Data Testing performed by liquid chromatography-tandem mass spectrometry. Therapeutic concentrations vary depending on type of transplanted organ and time elapsed since transplant. Typical trough concentrations range from 5-15 ng/mL. This test was developed and its performance characteristics determined by the [facility] consistent with CLIA requirements. This test has not been cleared or approved by the [place] Food and Drug administration. Current interpretive data last reviewed 2020. Blood 01/23/2025 6:05 AM CDT 01/23/2025 6:47 AM CDT Narrative [facility] - 01/23/2025 10:42 AM CDT Please check before administering morning tacrolimus dose Gisselle Sheffield MD LAB BLOOD ORDERABLES Final Re sult Performing Organization Address [facility] Co de Phone Number [facility] [place] [address] * (ABNORMAL) CBC without differential (01/23/2025 6:05 AM CDT) [facility] WBC 8.3 3.8 - 9.9 K/cumm Hgb 7.6(L) 11.9 - 15.5 g/dL [facility] Hct 23.7(L) 35.6 - 45.5 % [facility] Plt 165 150 - 400 K/cumm [facility] MPV 9.0(L) 9.1 - 12.3 fL [facility] RBC 2.53(L) 3.90 - 5.20 M/cumm [facility] MCV 93.7 81.3 - 96.4 fL [facility] MCH 30.0 27.1 - 33.3 pg [facility] MCHC 32.1(L) 32.3 - 35.7 g/dL [facility] RDW CV 16.5(H) 11.1 - 14.9 % [facility] RDW SD 56.8(H) 35.7 - 48.1 fL [facility] NRBC abs 0.00 0.00 - 0.01 K/cumm [facility] Blood 01/23/2025 6:05 AM CDT 01/23/2025 6:47 AM CDT Gisselle Sheffield MD LAB BLOOD ORDERABLES Final Re sult [facility] [place] [address] * Type and screen (01/23/2025 6:05 AM CDT) Pathologist [facility] ABO Rh B Positive Demetria, indirect Negative [facility] Blood 01/23/2025 6:05 AM CDT 01/23/2025 7:12 AM CDT Narrative [facility] - 01/23/2025 8:09 AM CDT Has the patient had Daratumumab or Isatuximab in the past 6 months?->Unknown Gisselle Sheffield MD LAB BLOOD BANK TEST ORDERABLE S Final Result [facility] [place] [address] * (ABNORMAL) Phosphorus (01/23/2025 6:05 AM CDT) Phosphorus, pl 5.1(H) 2.3 - 4.5 mg/dL Blood 01/23/2025 6:05 AM CDT 01/23/2025 6:47 AM CDT Gisselle Sheffield MD LAB BLOOD ORDERABLES Final Re sult Performing Organization Address [facility] Co de Phone Number [facility] [place] [address] * Osmolality, blood (01/23/2025 6:05 AM CDT) [facility] Osmo 294 275 - 300 mOsm/kg Blood 01/23/2025 6:05 AM CDT 01/23/2025 6:47 AM CDT Gisselle Sheffield MD LAB BLOOD ORDERABLES Final Re sult Performing Organization Address [facility] de Phone Number [facility] [place] [address] * Magnesium (01/23/2025 6:05 AM CDT) [facility] Magnesium 2.3 1.4 - 2.5 mg/dL Blood 01/23/2025 6:05 AM CDT 01/23/2025 6:47 AM CDT Gisselle Sheffield MD LAB BLOOD ORDERABLES Final Re sult Performing Organization Address [facility] de Phone Number [facility] [place] [address] * (ABNORMAL) Basic metabolic panel (01/23/2025 6:05 AM CDT) [facility] Sodium 125(L) 135 - 145 mmol/L Potassium, pl 5.0(H) 3.3 - 4.9 mmol/L [facility] Chloride 87(L) 97 - 110 mmol/L [facility] CO2 27 22 - 32 mmol/L [facility] Anion gap 11 2 - 15 mmol/L [facility] BUN 100(H) 6 - 25 mg/dL [facility] Creatinine 2.91(H) 0.60 - 1.10 mg/dL [facility] Glucose 76 70 - 199 mg/dL [facility] Comment: Interpretive Data Fasting glucose >/= 126 [...] 2022. Calcium 7.3(L) 8.5 - 10.3 mg/dL [facility] Blood 01/23/2025 6:05 AM CDT 01/23/2025 6:47 AM CDT Gisselle Sheffield MD LAB BLOOD ORDERABLES Final Re sult [facility] [place] [address] * Cardiology Document Scan (01/23/2025) Anatomical Region Laterality Modality Other Provider Scanning CV CARDIAC SERVICES PROCEDURES Final Result * (ABNORMAL) Urinalysis reflex to microscopic and culture Urine (01/22/2025 6:06 PM CDT) Color, ur Straw Yellow Clarity, ur Clear Clear [facility] Specific gravity, ur 1.009 1.003 - 1.030 [facility] pH, urine 6.0 [facility] Comment: Interpretive Data U rine pH is affected by diet, medications, systemic acid-base disturbances, and renal tubular function. pH may affect urinary stone formation. For example, urine pH below 6.0 may help reduce the tendency for calcium phosphate stones and pH greater than 6.0 may reduce the tendency for uric acid stone formation. Source: [facility] Current Interpretive Data was last revised on 2017 Protein, ur ql Negative Negative [facility] Glucose, ur ql Negative Negative [facility] Ketones, ur Negative Negative [facility] Bilirubin, ur Negative Negative [facility] Blood, ur Negative Negative [facility] Urobilinogen, ur <2.0 <2.0 mg/dL [facility] Nitrite, ur Negative Negative [facility] Leukocyte esterase, ur 2+(A) Negative [facility] UA reflex comment Reflex to microscopic UA will be performed. [facility] Urine 01/22/2025 6:06 PM CDT 01/22/2025 6:38 PM CDT Gisselle Sheffield MD LAB MICROBIOLOGY - GENERAL OR DERABLES Final Result Performing Organization Address [facility] de Phone Number [facility] [place] [address] * (ABNORMAL) Urinalysis, microscopic only (01/22/2025 6:06 PM CDT) WBC, ur 6-10(A) 0 - 5 /HPF RBC, ur 0-2 0 - 2 /HPF [facility] Epithelial cells, squamous, ur 1-5 0 - 5 /HPF [facility] Bacteria, ur 1+(A) [facility] Mucous, ur Present(A) [facility] Hyaline casts, ur 6-10 0 - 10 /LPF [facility] Culture Reflex Comment Reflex conditions for urine culture (WBC >10) not met. [facility] Urine 01/22/2025 6:06 PM CDT 01/22/2025 6:38 PM CDT us Gisselle Sheffield MD LAB URINE ORDERABLES Final Re sult Performing Organization Address [facility] de Phone Number [facility] [place] [address] * Urea nitrogen, urine, random (01/22/2025 5:08 PM CDT) Urea nitrogen, ur 290 mg/dL Comment: Interpretive Data No reference range established. Current interpretive data was last revised 2019. Urine 01/22/2025 5:08 PM CDT 01/22/2025 5:40 PM CDT Gisselle Sheffield MD LAB URINE ORDERABLES Final Re sult Performing Organization Address [facility] [place] [address] * Sodium, urine, random (01/22/2025 5:08 PM CDT) Sodium, ur 42 mmol/L Comment: Interpretive Data No reference range established. Current interpretive data was last revised 2019. Urine 01/22/2025 5:08 PM CDT 01/22/2025 5:40 PM CDT Gisselle Sheffield MD LAB URINE ORDERABLES Final Re sult Performing Organization Address [facility] Co de Phone Number [facility] [place] [address] * Potassium, urine, random (01/22/2025 5:08 PM CDT) Potassium conc, ur 25.0 mmol/L Comment: Interpretive Data No reference range established. Current interpretive data was last revised 2019. Urine 01/22/2025 5:08 PM CDT 01/22/2025 5:47 PM CDT Gisselle Sheffield MD LAB URINE ORDERABLES Final Re sult Performing Organization Address [facility] Co de Phone Number [facility] [place] [address] * Osmolality, urine (01/22/2025 5:08 PM CDT) Osmo, ur 243 mOsm/kg Urine 01/22/2025 5:08 PM CDT 01/22/2025 5:40 PM CDT Gisselle Sheffield MD LAB URINE ORDERABLES Final Re sult Performing Organization Address [facility] Co de Phone Number [facility] [place] [address] * Creatinine, urine, random (01/22/2025 5:08 PM CDT) Creatinine Ur 32.6 mg/dL Comment: Interpretive Data No reference range established. Current interpretive data was last revised 2019. Urine 01/22/2025 5:08 PM CDT 01/22/2025 5:40 PM CDT Gisselle Sheffield MD LAB URINE ORDERABLES Final Re sult Performing Organization Address [facility] de Phone Number [facility] [place] [address] * US Renal Transplant W Dopplers (01/22/2025 [...] morphology without hydronephrosis. Dictated by: Davy Starr M.D (Ramanan). The radiology attending physician has personally reviewed [...] LAB BLOOD ORDERABLES Final Re sult [facility] Department [place] [address] * (ABNORMAL) Renal function panel (01/22/2025 3:12 PM CDT) Sodium 123(L) 135 - 145 mmol/L Potassium, pl 4.9 3.3 - 4.9 mmol/L [facility] Chloride 85(L) 97 - 110 mmol/L [facility] CO2 27 22 - 32 mmol/L [facility] Anion gap 11 2 - 15 mmol/L [facility] BUN 97(H) 6 - 25 mg/dL [facility] Creatinine 2.72(H) 0.60 - 1.10 mg/dL [facility] Glucose 156 70 - 199 mg/dL [facility] Comment: Interpretive Data Fasting glucose >/= 126 [...] 2022. Calcium 7.4(L) 8.5 - 10.3 mg/dL [facility] Phosphorus, pl 4.9(H) 2.3 - 4.5 mg/dL [facility] Albumin 3.1(L) 3.5 - 5.0 g/dL [facility] Blood 01/22/2025 3:12 PM CDT 01/22/2025 3:51 PM CDT us Gisselle Sheffield MD LAB BLOOD ORDERABLES Final Re sult [facility] Department [place] [address] * Collection Task for HLA Antibody Screen (01/22/2025 5:05 AM CDT) HLA Antibody Screen By Single Antigen Received Blood 01/22/2025 5:05 AM CDT 01/22/2025 8:01 AM CDT us Kalpana Khan NP LAB BLOOD ORDERABLES Final R esult Performing Organization Address [facility] Co de Phone Number [facility] [place] [address] * (ABNORMAL) eGFR (01/22/2025 5:05 AM CDT) [...] ORDERABLES Final Re sult Performing Organization Address City/[facility]/ZIP Co de Phone Number [facility] [place] [address] * Tacrolimus level trough (01/22/2025 5:05 AM CDT) Pathologist [facility] Tacrolimus trough 3.9 ng/mL Comment: Interpretive Data Testing performed by liquid chromatography-tandem mass spectrometry. Therapeutic concentrations vary depending on type of transplanted organ and time elapsed since transplant. Typical trough concentrations range from 5-15 ng/mL. This test was developed and its performance characteristics determined by the [facility] consistent with CLIA requirements. This test has not been cleared or approved by the [place] Food and Drug administration. Current interpretive data last reviewed 2020. Blood 01/22/2025 5:05 AM CDT 01/22/2025 6:03 AM CDT Narrative [facility] - 01/22/2025 9:38 AM CDT Please check before administering morning tacrolimus dose Gisselle Sheffield MD LAB BLOOD ORDERABLES Final Re sult Performing Organization Address [facility]/ZIP Co de Phone Number [facility] [place] [address] * (ABNORMAL) CBC without differential (01/22/2025 5:05 AM CDT) WBC 8.5 3.8 - 9.9 K/cumm Hgb 7.3(L) 11.9 - 15.5 g/dL [facility] Hct 22.8(L) 35.6 - 45.5 % [facility] Plt 152 150 - 400 K/cumm [facility] MPV 9.3 9.1 - 12.3 fL [facility] RBC 2.42(L) 3.90 - 5.20 M/cumm [facility] MCV 94.2 81.3 - 96.4 fL [facility] MCH 30.2 27.1 - 33.3 pg [facility] MCHC 32.0(L) 32.3 - 35.7 g/dL [facility] RDW CV 16.3(H) 11.1 - 14.9 % [facility] RDW SD 56.0(H) 35.7 - 48.1 fL [facility] NRBC abs 0.00 0.00 - 0.01 K/cumm [facility] Blood 01/22/2025 5:05 AM CDT 01/22/2025 6:03 AM CDT Gisselle Sheffield MD LAB BLOOD ORDERABLES Final Re sult Performing Organization Address City/[facility]/ZIP Co de Phone Number [facility] [place] [address] * (ABNORMAL) Phosphorus (01/22/2025 5:05 AM CDT) [facility] Phosphorus, pl 5.0(H) 2.3 - 4.5 mg/dL Blood 01/22/2025 5:05 AM CDT 01/22/2025 6:03 AM CDT Gisselle Shfefield MD LAB BLOOD ORDERABLES Final Re sult Performing Organization Address [facility] Co de Phone Number [facility] [place] [address] * Magnesium (01/22/2025 5:05 AM CDT) [facility] Magnesium 2.4 1.4 - 2.5 mg/dL Blood 01/22/2025 5:05 AM CDT 01/22/2025 6:03 AM CDT Gisselle Sheffield MD LAB BLOOD ORDERABLES Final Re sult Performing Organization Address [facility] Co de Phone Number [facility] [place] [address] * (ABNORMAL) Basic metabolic panel (01/22/2025 5:05 AM CDT) [facility] Sodium 124(L) 135 - 145 mmol/L Potassium, pl 5.3(H) 3.3 - 4.9 mmol/L [facility] Chloride 87(L) 97 - 110 mmol/L [facility] CO2 27 22 - 32 mmol/L [facility] Anion gap 10 2 - 15 mmol/L [facility] BUN 96(H) 6 - 25 mg/dL [facility] Creatinine 2.73(H) 0.60 - 1.10 mg/dL [facility] Glucose 93 70 - 199 mg/dL [facility] Comment: Interpretive Data Fasting glucose >/= 126 [...] 2022. Calcium 6.9(L) 8.5 - 10.3 mg/dL [facility] Blood 01/22/2025 5:05 AM CDT 01/22/2025 6:03 AM CDT Gisselle Sheffield MD LAB BLOOD ORDERABLES Final Re sult Performing Organization Address City/[facility]/ZIP Co de Phone Number [facility] [place] [address] * HLA Donor Specific Antibody Report (01/22/2025 5:02 AM CDT) Kalpana Khan NP LAB BLOOD ORDERABLES Final R esult * HLA Antibody Screen - DSA (Class I and Class II) (01/22/2025 5:02 AM CDT) Blood 01/22/2025 5:02 AM CDT 01/23/2025 8:04 AM CDT Narrative [facility] - 01/23/2025 8:04 AM CDT Kalpana Khan NP LAB BLOOD ORDERABLES Final R esult [facility] * (ABNORMAL) eGFR (01/21/2025 8:14 AM CDT) [...] MD LAB BLOOD ORDERABLES Final Result [facility] [place] [address] * Tacrolimus level trough (01/21/2025 8:14 AM CDT) [facility] Tacrolimus trough 3.8 ng/mL Comment: Interpretive Data Testing performed by liquid chromatography-tandem mass spectrometry. Therapeutic concentrations vary depending on type of transplanted organ and time elapsed since transplant. Typical trough concentrations range from 5-15 ng/mL. This test was developed and its performance characteristics determined by the [facility] consistent with CLIA requirements. This test has not been cleared or approved by the [place] Food and Drug administration. Current interpretive data last reviewed 2020. Blood 01/21/2025 8:14 AM CDT 01/21/2025 9:02 AM CDT Narrative [facility] - 01/21/2025 12:03 PM CDT Draw exactly 12 HOURS after last dose of tacrolimus was given and just BEFORE giving next dose Dian Vilchis MD LAB BLOOD ORDERABLES Final Result Performing Organization Address [facility] de Phone Number [facility] [place] [address] * (ABNORMAL) CBC without differential (01/21/2025 8:14 AM CDT) Pathologist [facility] WBC 8.1 3.8 - 9.9 K/cumm Hgb 7.7(L) 11.9 - 15.5 g/dL [facility] Hct 23.8(L) 35.6 - 45.5 % [facility] Plt 161 150 - 400 K/cumm [facility] MPV 9.1 9.1 - 12.3 fL [facility] RBC 2.49(L) 3.90 - 5.20 M/cumm [facility] MCV 95.6 81.3 - 96.4 fL [facility] MCH 30.9 27.1 - 33.3 pg [facility] MCHC 32.4 32.3 - 35.7 g/dL [facility] RDW CV 16.4(H) 11.1 - 14.9 % [facility] RDW SD 57.3(H) 35.7 - 48.1 fL [facility] NRBC abs 0.00 0.00 - 0.01 K/cumm [facility] Blood 01/21/2025 8:14 AM CDT 01/21/2025 9:02 AM CDT Dian Vilchis MD LAB BLOOD ORDERABLES Final Result Performing Organization Address [facility] Co de Phone Number [facility] [place] [address] * Magnesium (01/21/2025 8:14 AM CDT) [facility] Magnesium 2.3 1.4 - 2.5 mg/dL Blood 01/21/2025 8:14 AM CDT 01/21/2025 9:02 AM CDT Dian Vilchis MD LAB BLOOD ORDERABLES Final Result [facility] [place] [address] * (ABNORMAL) Renal function panel (01/21/2025 8:14 AM CDT) Sodium 128(L) 135 - 145 mmol/L Potassium, pl 5.1(H) 3.3 - 4.9 mmol/L [facility] Chloride 91(L) 97 - 110 mmol/L [facility] CO2 27 22 - 32 mmol/L [facility] Anion gap 10 2 - 15 mmol/L [facility] BUN 99(H) 6 - 25 mg/dL [facility] Creatinine 2.47(H) 0.60 - 1.10 mg/dL [facility] Glucose 78 70 - 199 mg/dL [facility] Comment: Interpretive Data Fasting glucose >/= 126 [...] 2022. Calcium 6.7(L) 8.5 - 10.3 mg/dL [facility] Phosphorus, pl 4.8(H) 2.3 - 4.5 mg/dL [facility] Albumin 3.1(L) 3.5 - 5.0 g/dL [facility] Blood 01/21/2025 8:14 AM CDT 01/21/2025 9:02 AM CDT Dian Vilchis MD LAB BLOOD ORDERABLES Final Result [facility] [place] [address] * Tacrolimus level trough (01/21/2025 6:30 AM CDT) Tacrolimus trough 4.5 ng/mL Comment: Interpretive Data Testing performed by liquid chromatography-tandem mass spectrometry. Therapeutic concentrations vary depending on type of transplanted organ and time elapsed since transplant. Typical trough concentrations range from 5-15 ng/mL. This test was developed and its performance characteristics determined by the [facility] consistent with CLIA requirements. This test has not been cleared or approved by the [place] Food and Drug administration. Current interpretive data last reviewed 2020. Blood 01/21/2025 6:30 AM CDT 01/21/2025 6:[address] [facility] - 01/21/2025 9:53 AM CDT Draw exactly 12 HOURS after last dose of tacrolimus was given and just BEFORE giving next dose us Linda Harden MD LAB BLOOD ORDERABLES F inal Result [facility] [place] [address] * (ABNORMAL) eGFR (01/21/2025 6:21 AM CDT) Pathologist [facility] eGFR 19(L) >=60 mL/min/1. 73 m2 Comment: [...] AM CDT 01/21/2025 6:46 AM CDT Gisselle hSeffield MD LAB BLOOD ORDERABLES Final Re sult Performing Organization Address [facility] Co de Phone Number [facility] [place] [address] * Tacrolimus level trough (01/21/2025 6:21 AM CDT) Tacrolimus trough 4.3 ng/mL Comment: Interpretive Data Testing performed by liquid chromatography-tandem mass spectrometry. Therapeutic concentrations vary depending on type of transplanted organ and time elapsed since transplant. Typical trough concentrations range from 5-15 ng/mL. This test was developed and its performance characteristics determined by the [facility] consistent with CLIA requirements. This test has not been cleared or approved by the US Food and Drug administration. Current interpretive data last reviewed 2020. Blood 01/21/2025 6:2 1 AM CDT 01/21/2025 6:48 AM CDT Narrative [facility] - 01/21/2025 9:53 AM CDT Draw exactly 12 HOURS after last dose of tacrolimus was given and just BEFORE giving next dose us Linda Harden MD LAB BLOOD ORDERABLES F inal Result Performing Organization Address [facility] Co de Phone Number [facility] [place] [address] * (ABNORMAL) CBC without differential (01/21/2025 6:21 AM CDT) Pathologist [facility] WBC 8.4 3.8 - 9.9 K/cumm Hgb 8.3(L) 11.9 - 15.5 g/dL [facility] Hct 25.7(L) 35.6 - 45.5 % [facility] Plt 164 150 - 400 K/cumm [facility] MPV 8.6(L) 9.1 - 12.3 fL [facility] RBC 2.74(L) 3.90 - 5.20 M/cumm [facility] MCV 93.8 81.3 - 96.4 fL [facility] MCH 30.3 27.1 - 33.3 pg [facility] MCHC 32.3 32.3 - 35.7 g/dL [facility] RDW CV 16.4(H) 11.1 - 14.9 % [facility] RDW SD 56.4(H) 35.7 - 48.1 fL [facility] NRBC abs 0.00 0.00 - 0.01 K/cumm [facility] Blood 01/21/2025 6:21 AM CDT 01/21/2025 6:47 AM CDT Gisselle Sheffield MD LAB BLOOD ORDERABLES Final Re sult Performing Organization Address [facility] de Phone Number [facility] [place] [address] * Magnesium (01/21/2025 6:21 AM CDT) [facility] Magnesium 2.4 1.4 - 2.5 mg/dL Blood 01/21/2025 6:21 AM CDT 01/21/2025 6:46 AM CDT Gisselle Sheffield MD LAB BLOOD ORDERABLES Final Re sult Performing Organization Address [facility] de Phone Number [facility] [place] [address] * (ABNORMAL) Renal function panel (01/21/2025 6:21 AM CDT) [facility] Sodium 127(L) 135 - 145 mmol/L Potassium, pl 5.2(H) 3.3 - 4.9 mmol/L [facility] Chloride 90(L) 97 - 110 mmol/L [facility] CO2 26 22 - 32 mmol/L [facility] Anion gap 11 2 - 15 mmol/L [facility] BUN 91(H) 6 - 25 mg/dL [facility] Creatinine 2.51(H) 0.60 - 1.10 mg/dL [facility] Glucose 87 70 - 199 mg/dL [facility] Comment: Interpretive Data Fasting glucose >/= 126 [...] 2022. Calcium 6.9(L) 8.5 - 10.3 mg/dL [facility] Phosphorus, pl 4.9(H) 2.3 - 4.5 mg/dL [facility] Albumin 3.2(L) 3.5 - 5.0 g/dL [facility] Blood 01/21/2025 6:21 AM CDT 01/21/2025 6:46 AM CDT us Gisselle Sheffield MD LAB BLOOD ORDERABLES Final Re sult [facility] [place] [address] * RIGHT HEART CATH (01/20/2025 11:48 AM [...] usual sterile fashion. 3) I provided direct [id number] monitoring of conscious sedation which was administered by an independent trained nurse using Fentanyl 12.5 mcg and Midazolam 0.5 mg. Sedation time from 11:25-11:48. Local anesthesia with 1% lidocaine was used. 4) Venous access was obtained in theRight Internal Jugular vein using modified Seldinger technique and micropuncture approach. A 7 Vincentian sheath was secured into place. 5) Right heart catheterization was performed with a 7 Vincentian TD [place] catheter. The catheter was advanced [...] structural heart team. Bunny Islas MD PhD Linda Harden MD CV CARDIAC CATH PROCED URES Final Result * (ABNORMAL) POCT oxyhemoglobin (01/20/2025 11:44 AM CDT) MAINTENANCE SERVICE TECHNICIAN Oxyhemoglobin 66.3 >=65.0 % MAINTENANCE SERVICE TECHNICIAN Hemoglobin 7.4(L) 11.9 - 15.5 g/dL [facility] MAINTENANCE SERVICE TECHNICIAN O2 content 6.8(L) 15.0 - 22.0 Vol % [facility] Anatomic Site aPOC Pulm Art right [facility] Blood 01/20/2025 11:4 4 AM CDT 01/20/2025 11:44 AM CDT Result [facility] Gisselle Sheffield MD LAB POCT ORDERABLES - DEVICE Final Result Performing Organization Address [facility] Co de Phone Number [facility] [place] [address] * (ABNORMAL) POCT oxyhemoglobin (01/20/2025 11:43 AM CDT) MAINTENANCE SERVICE TECHNICIAN Oxyhemoglobin 64.8(L) >=65.0 % MAINTENANCE SERVICE TECHNICIAN Hemoglobin 7.4(L) 11.9 - 15.5 g/dL [facility] MAINTENANCE SERVICE TECHNICIAN O2 content 6.6(L) 15.0 - 22.0 Vol % [facility] Anatomic Site aPOC Pulm Art right [facility] Blood 01/20/2025 11:4 3 AM CDT 01/20/2025 11:43 AM CDT Result [facility] Gisselle Sheffield MD LAB POCT ORDERABLES - DEVICE Final Result Performing Organization Address City/[facility] Co de Phone Number [facility] [place] [address] * POC Blood Gas and Chemistries, Arterial - (01/20/2025 10:04 AM CDT) K POC 4.7 3.3 - 4.9 mmol/L Comment: Interpretive Data Not all point of care methods assess for hemolysis. Confirm with instrument and retest K+ if not consistent with clinical signs and symptoms. Current Interpretive Data was last revised on 2024. Blood 01/20/2025 10:0 4 AM CDT 01/20/2025 10:04 AM CDT us Gisselle Sheffield MD LAB POCT ORDERABLES - DEVICE Final Result [facility] [place] [address] * (ABNORMAL) eGFR (01/19/2025 8:11 PM CDT) eGFR 17(L) >=60 mL/min/1. 73 [...] ORDERABLES F inal Result Performing Organization Address [facility] Co de Phone Number [facility] [place] [address] * Tacrolimus level trough (01/19/2025 8:11 PM CDT) [facility] Tacrolimus trough 3.7 ng/mL Comment: Interpretive Data Testing performed by liquid chromatography-tandem mass spectrometry. Therapeutic concentrations vary depending on type of transplanted organ and time elapsed since transplant. Typical trough concentrations range from 5-15 ng/mL. This test was developed and its performance characteristics determined by the [facility] consistent with CLIA requirements. This test has not been cleared or approved by the [place] Food and Drug administration. Current interpretive data last reviewed 2020. Blood 01/19/2025 8:11 PM CDT 01/19/2025 9:12 PM CDT [facility] - 01/20/2025 1:43 AM CDT Draw exactly 12 HOURS after last dose of tacrolimus was given and just BEFORE giving next dose us Linda Harden MD LAB BLOOD ORDERABLES F inal Result Performing Organization Address [facility] de Phone Number [facility] [place] [address] * (ABNORMAL) CBC without differential (01/19/2025 8:11 PM CDT) [facility] WBC 9.6 3.8 - 9.9 K/cumm Hgb 8.4(L) 11.9 - 15.5 g/dL [facility] Hct 26.5(L) 35.6 - 45.5 % [facility] Plt 185 150 - 400 K/cumm [facility] MPV 9.2 9.1 - 12.3 fL [facility] RBC 2.78(L) 3.90 - 5.20 M/cumm [facility] MCV 95.3 81.3 - 96.4 fL [facility] MCH 30.2 27.1 - 33.3 pg [facility] MCHC 31.7(L) 32.3 - 35.7 g/dL [facility] RDW CV 16.4(H) 11.1 - 14.9 % [facility] RDW SD 57.1(H) 35.7 - 48.1 fL [facility] NRBC abs 0.00 0.00 - 0.01 K/cumm [facility] Blood 01/19/2025 8:11 PM CDT 01/19/2025 9:12 PM CDT Linda Harden MD LAB BLOOD ORDERABLES F inal Result Performing Organization Address [facility] Co de Phone Number [facility] [place] [place] [address] * Magnesium (01/19/2025 8:11 PM CDT) [facility] Magnesium 2.3 1.4 - 2.5 mg/dL Blood 01/19/2025 8:11 PM CDT 01/19/2025 9:12 PM CDT Linda Harden MD LAB BLOOD ORDERABLES F inal Result Performing Organization Address [facility] de Phone Number [facility] [place] [address] * (ABNORMAL) Renal function panel (01/19/2025 8:11 PM CDT) Pathologist [facility] Sodium 128(L) 135 - 145 mmol/L Potassium, pl 5.1(H) 3.3 - 4.9 mmol/L [facility] Chloride 90(L) 97 - 110 mmol/L [facility] CO2 25 22 - 32 mmol/L [facility] Anion gap 13 2 - 15 mmol/L [facility] BUN 95(H) 6 - 25 mg/dL [facility] Creatinine 2.76(H) 0.60 - 1.10 mg/dL [facility] Glucose 154 70 - 199 mg/dL [facility] Comment: Interpretive Data Fasting glucose >/= 126 [...] 2022. Calcium 6.8(L) 8.5 - 10.3 mg/dL [facility] Phosphorus, pl 4.3 2.3 - 4.5 mg/dL [facility] Albumin 3.4(L) 3.5 - 5.0 g/dL [facility] Blood 01/19/2025 8:11 PM CDT 01/19/2025 9:12 PM CDT Linda Harden MD LAB BLOOD ORDERABLES F inal Result Performing Organization Address City/[facility] Co de Phone Number [facility] [place] [address] * Urea nitrogen, urine, random (01/19/2025 10:43 AM CDT) Urea nitrogen, ur 271 mg/dL Comment: Interpretive Data No reference range established. Current interpretive data was last revised 2019. Urine 01/19/2025 10:4 3 AM CDT 01/19/2025 11:16 AM CDT Linda Harden MD LAB URINE ORDERABLES F inal Result Performing Organization Address City/[facility]/ZIP Co de Phone Number [facility] [place] [address] * Sodium, urine, random (01/19/2025 10:43 AM CDT) Sodium, ur 51 mmol/L Comment: Interpretive Data No reference range established. Current interpretive data was last revised 2019. Urine 01/19/2025 10:4 3 AM CDT 01/19/2025 11:16 AM CDT Linda Harden MD LAB URINE ORDERABLES F inal Result Performing Organization Address [facility] de Phone Number [facility] [place] [address] * Creatinine, urine, random (01/19/2025 10:43 AM CDT) Creatinine Ur 34.9 mg/dL Comment: Interpretive Data No reference range established. Current interpretive data was last revised 2019. Urine 01/19/2025 10:4 3 AM CDT 01/19/2025 11:16 AM CDT Linda Harden MD LAB URINE ORDERABLES F inal Result Performing Organization Address [facility] Phone Number [facility] [place] [address] * Tacrolimus level trough (01/19/2025 8:15 AM CDT) Tacrolimus trough 2.7 ng/mL Comment: Interpretive Data Testing performed by liquid chromatography-tandem mass spectrometry. Therapeutic concentrations vary depending on type of transplanted organ and time elapsed since transplant. Typical trough concentrations range from 5-15 ng/mL. This test was developed and its performance characteristics determined by the [facility] consistent with CLIA requirements. This test [...] ORDERABLES F inal Result Performing Organization Address [facility] Co de Phone Number [facility] [place] [address] * (ABNORMAL) eGFR (01/18/2025 8:37 PM CDT) [...] 8:37 PM CDT 01/18/2025 9:40 PM CDT us Linda Harden MD LAB BLOOD ORDERABLES F inal Result Performing Organization Address [facility] Co de Phone Number [facility] [place] [address] * Tacrolimus level trough (01/18/2025 8:37 PM CDT) Tacrolimus trough 3.5 ng/mL Comment: Interpretive Data Testing performed by liquid chromatography-tandem mass spectrometry. Therapeutic concentrations vary depending on type of transplanted organ and time elapsed since transplant. Typical trough concentrations range from 5-15 ng/mL. This test was developed and its performance characteristics determined by the [facility] consistent with CLIA requirements. This test has not been cleared or approved by the [place] Food and Drug administration. Current interpretive data last reviewed 2020. Blood 01/18/2025 8:37 PM CDT 01/18/2025 9:42 PM CDT Narrative [facility] - 01/19/2025 1:52 AM CDT Draw exactly 12 HOURS after last dose of tacrolimus was given and just BEFORE giving next dose Linda Harden MD LAB BLOOD ORDERABLES F inal Result Performing Organization Address [facility]/ZIP Co de Phone Number [facility] [place] [address] * (ABNORMAL) CBC without differential (01/18/2025 8:37 PM CDT) WBC 9.6 3.8 - 9.9 K/cumm Hgb 7.9(L) 11.9 - 15.5 g/dL [facility] Hct 24.8(L) 35.6 - 45.5 % [facility] Plt 166 150 - 400 K/cumm [facility] MPV 9.4 9.1 - 12.3 fL [facility] RBC 2.63(L) 3.90 - 5.20 M/cumm [facility] MCV 94.3 81.3 - 96.4 fL [facility] MCH 30.0 27.1 - 33.3 pg [facility] MCHC 31.9(L) 32.3 - 35.7 g/dL [facility] RDW CV 16.1(H) 11.1 - 14.9 % [facility] RDW SD 55.8(H) 35.7 - 48.1 fL [facility] NRBC abs 0.00 0.00 - 0.01 K/cumm [facility] Blood 01/18/2025 8:37 PM CDT 01/18/2025 9:42 PM CDT Linda Harden MD LAB BLOOD ORDERABLES F inal Result Performing Organization Address City/[facility]/ZIP Co de Phone Number [facility] [place] [address] * Magnesium (01/18/2025 8:37 PM CDT) [facility] Magnesium 2.4 1.4 - 2.5 mg/dL Blood 01/18/2025 8:37 PM CDT 01/18/2025 9:40 PM CDT us Linda Harden MD LAB BLOOD ORDERABLES F inal Result [facility] [place] [address] * (ABNORMAL) Renal function panel (01/18/2025 8:37 PM CDT) [facility] Sodium 125(L) 135 - 145 mmol/L Potassium, pl 5.2(H) 3.3 - 4.9 mmol/L [facility] Chloride 90(L) 97 - 110 mmol/L [facility] CO2 23 22 - 32 mmol/L [facility] Anion gap 12 2 - 15 mmol/L [facility] BUN 84(H) 6 - 25 mg/dL [facility] Creatinine 2.68(H) 0.60 - 1.10 mg/dL [facility] Glucose 137 70 - 199 mg/dL [facility] Comment: Interpretive Data Fasting glucose >/= 126 [...] 2022. Calcium 6.6(L) 8.5 - 10.3 mg/dL [facility] Phosphorus, pl 3.8 2.3 - 4.5 mg/dL [facility] Albumin 3.1(L) 3.5 - 5.0 g/dL [facility] Blood 01/18/2025 8:37 PM CDT 01/18/2025 9:40 PM CDT Linda Harden MD LAB BLOOD ORDERABLES F inal Result Performing Organization Address [facility] de Phone Number [facility] [place] [address] * Potassium (01/18/2025 1:13 PM CDT) Pathologist [facility] Potassium, pl 4.9 3.3 - 4.9 mmol/L Blood 01/18/2025 1:13 PM CDT 01/18/2025 1:42 PM CDT Narrative [facility] - 01/18/2025 2:22 PM CDT Provider to discontinue after two normal results. Linda Harden MD LAB BLOOD ORDERABLES F inal Result Performing Organization Address [facility] de Phone Number [facility] [place] [address] * Tacrolimus level trough (01/18/2025 8:51 AM CDT) Pathologist [facility] Tacrolimus trough 3.8 ng/mL Comment: Interpretive Data Testing performed by liquid chromatography-tandem mass spectrometry. Therapeutic concentrations vary depending on type of transplanted organ and time elapsed since transplant. Typical trough concentrations range from 5-15 ng/mL. This test was developed and its performance characteristics determined by the [facility] consistent with CLIA requirements. This test has not been cleared or approved by the [place] Food and Drug administration. Current interpretive data last reviewed 2020. Blood 01/18/2025 8:51 AM CDT 01/18/2025 10:17 AM CDT Narrative [facility] - 01/18/2025 1:56 PM CDT Draw exactly 12 HOURS after last dose of tacrolimus was given and just BEFORE giving next dose Linda Harden MD LAB BLOOD ORDERABLES F inal Result Performing Organization Address [facility] de Phone Number [facility] [place] [employer] [place] [address] * (ABNORMAL) Potassium (01/18/2025 8:51 AM CDT) Potassium, pl 5.0(H) 3.3 - 4.9 mmol/L Blood 01/18/2025 8:51 AM CDT 01/18/2025 10:17 AM CDT Narrative [facility] - 01/18/2025 10:37 AM CDT Provider to discontinue after two normal results. Linda Harden MD LAB BLOOD ORDERABLES F inal Result Performing Organization Address [facility] de Phone Number [facility] [place] [employer] [place] [address] * (ABNORMAL) Potassium (01/18/2025 4:27 AM CDT) Potassium, pl 5.4(H) 3.3 - 4.9 mmol/L Blood 01/18/2025 4:27 AM CDT 01/18/2025 4:49 AM CDT Narrative [facility] - 01/18/2025 5:13 AM CDT Provider to discontinue after two normal results. Linda Harden MD LAB BLOOD ORDERABLES F inal Result Performing Organization Address [facility] Co de Phone Number [facility] [place] [employer] [place] [address] * Troponin I high-sensitivity (01/18/2025 12:52 AM CDT) Trop I hs 10 <=17 ng/L Comment: Interpretive Data For further hscTnI resources including the diagnostic algorithm and an aid in interpretation, copy and paste this link: [email or web address].testcatalog.org/[email or web address] Current Interpretive Data last revised 2020. Blood 01/18/2025 12:5 2 AM CDT 01/18/2025 1:24 AM CDT us Linda Harden MD LAB BLOOD ORDERABLES F inal Result Performing Organization Address City/[facility] Co de Phone Number [facility] [place] [address] * (ABNORMAL) Potassium (01/18/2025 12:51 AM CDT) Potassium, pl 5.3(H) 3.3 - 4.9 mmol/L Blood 01/18/2025 12:5 1 AM CDT 01/18/2025 1:24 AM CDT Narrative [facility] - 01/18/2025 1:44 AM CDT Provider to discontinue after two normal results. us Linda Harden MD LAB BLOOD ORDERABLES F inal Result Performing Organization Address [facility] Co de Phone Number [facility] [place] [address] * ECG 12 lead (01/18/2025 12:44 AM CDT) Ventricular Rate EKG/Min 72 BPM [facility] Atrial Rate 72 BPM [facility] NM-Interval (MSEC) 174 ms [facility] QRS-Interval (MSEC) 106 ms [facility] QT-Interval (MSEC) 414 ms [facility] QTc 453 ms [facility] P Reader 77 degrees [facility] R Reader -61 degrees [facility] T Reader 40 degrees [facility] Diagnosis Normal sinus rhythm Left anterior fascicular block Minimal voltage criteria for LVH, may be normal variant ( [place] product ) Septal infarct (cited on or before 17-JAN-2025) Abnormal ECG When compared with ECG of 17-JAN-2025 23:57, (unconfirmed) No significant change was found Confirmed by YINA SOTO M.D ([id number]) on 01/19/2025 6:54:12 PM [facility] 01/18/2025 12:4 4 AM CDT 01/19/2025 6:54 PM CDT Linda Harden MD ECG ORDERABLES Final Result Performing Organization Address [facility] Co de Phone Number [facility] * ECG 12 lead (01/17/2025 11:57 PM CDT) Pathologist [facility] Ventricular Rate EKG/Min 68 BPM [facility] Atrial Rate 68 BPM [facility] NM-Interval (MSEC) 178 ms [facility] QRS-Interval (MSEC) 106 ms [facility] QT-Interval (MSEC) 428 ms [facility] QTc 455 ms [facility] P Reader 81 degrees [facility] R Reader -60 degrees [facility] T Reader 38 degrees [facility] Diagnosis Normal sinus rhythm Pulmonary disease pattern Incomplete right bundle branch block Left anterior fascicular block Minimal voltage criteria for LVH, may be normal variant ( [place] product ) Possible Septal infarct , age undetermined Abnormal ECG When compared with ECG of 16-JAN-2025 08:56, Incomplete right bundle branch block is now Present Confirmed by DERRICK HONEYCUTT M.D ([id number]) on 01/20/2025 2:43:58 PM [facility] 01/17/2025 11:5 7 PM CDT 01/20/2025 2:43 PM CDT us Linda Harden MD ECG ORDERABLES Final Result Performing Organization Address [facility] Co de Phone Number [facility] * (ABNORMAL) eGFR (01/17/2025 8:50 PM CDT) Pathologist [facility] eGFR 19(L) >=60 mL/min/1. 73 m2 Comment: [...] ORDERABLES F inal Result Performing Organization Address [facility] de Phone Number [facility] [place] [place] [address] * Tacrolimus level trough (01/17/2025 8:50 PM CDT) [facility] Tacrolimus trough 4.4 ng/mL Comment: Interpretive Data Testing performed by liquid chromatography-tandem mass spectrometry. Therapeutic concentrations vary depending on type of transplanted organ and time elapsed since transplant. Typical trough concentrations range from 5-15 ng/mL. This test was developed and its performance characteristics determined by the [facility] consistent with CLIA requirements. This test has not been cleared or approved by the [place] Food and Drug administration. Current interpretive data last reviewed 2020. Blood 01/17/2025 8:50 PM CDT 01/17/2025 10:49 PM CDT Narrative [facility] - 01/18/2025 2:48 AM CDT Draw exactly 12 HOURS after last dose of tacrolimus was given and just BEFORE giving next dose Linda Harden MD LAB BLOOD ORDERABLES F inal Result Performing Organization Address [facility] Co de Phone Number [facility] [place] [employer] [place] [address] * (ABNORMAL) CBC without differential (01/17/2025 8:50 PM CDT) WBC 8.2 3.8 - 9.9 K/cumm Hgb 8.0(L) 11.9 - 15.5 g/dL [facility] Hct 25.8(L) 35.6 - 45.5 % [facility] Plt 159 150 - 400 K/cumm [facility] MPV 9.2 9.1 - 12.3 fL [facility] RBC 2.66(L) 3.90 - 5.20 M/cumm [facility] MCV 97.0(H) 81.3 - 96.4 fL [facility] MCH 30.1 27.1 - 33.3 pg [facility] MCHC 31.0(L) 32.3 - 35.7 g/dL [facility] RDW CV 16.3(H) 11.1 - 14.9 % [facility] RDW SD 57.9(H) 35.7 - 48.1 fL [facility] NRBC abs 0.00 0.00 - 0.01 K/cumm [facility] Blood 01/17/2025 8:50 PM CDT 01/17/2025 10:48 PM CDT us Linda Harden MD LAB BLOOD ORDERABLES F inal Result Performing Organization Address City/[facility]/ZIP Co de Phone Number [facility] [place] [address] * (ABNORMAL) Magnesium (01/17/2025 8:50 PM CDT) Pathologist [facility] Magnesium 2.6(H) 1.4 - 2.5 mg/dL Blood 01/17/2025 8:50 PM CDT 01/17/2025 10:49 PM CDT Linda Harden MD LAB BLOOD ORDERABLES F inal Result Performing Organization Address [facility]/ZIP Co de Phone Number [facility] [place] [address] * (ABNORMAL) Renal function panel (01/17/2025 8:50 PM CDT) [facility] Sodium 126(L) 135 - 145 mmol/L Potassium, pl 5.7(H) 3.3 - 4.9 mmol/L [facility] Chloride 91(L) 97 - 110 mmol/L [facility] CO2 23 22 - 32 mmol/L [facility] Anion gap 12 2 - 15 mmol/L [facility] BUN 78(H) 6 - 25 mg/dL [facility] Creatinine 2.60(H) 0.60 - 1.10 mg/dL [facility] Glucose 129 70 - 199 mg/dL [facility] Comment: Interpretive Data Fasting glucose >/= 126 [...] 2022. Calcium 6.7(L) 8.5 - 10.3 mg/dL [facility] Phosphorus, pl 3.9 2.3 - 4.5 mg/dL [facility] Albumin 3.1(L) 3.5 - 5.0 g/dL [facility] Blood 01/17/2025 8:50 PM CDT 01/17/2025 10:49 PM CDT us Linda Harden MD LAB BLOOD ORDERABLES F inal Result [facility] [place] [address] * (ABNORMAL) Protein / creatinine ratio, urine, random (01/17/2025 9:44 AM CDT) Protein, ur, quant 23.1 mg/dL Comment: Interpretive Data No reference range established. Current interpretive data was last revised 2019. Creatinine Ur 62.4 mg/dL [facility] Comment: Interpretive Data No reference range established. Current interpretive data was last revised 2019. Protein/creatinin e ratio 370.2(H) 0.0 - 180.0 mg/g CR [facility] Urine 01/17/2025 9:44 AM CDT 01/17/2025 10:47 AM CDT uLna Beckford NP LAB URINE ORDERABLES Мария l Result Performing Organization Address [facility] Co de Phone Number [facility] [place] [address] * Sodium, urine, random (01/17/2025 9:44 AM CDT) Sodium, ur <20 mmol/L Comment: Interpretive Data No reference range established. Current interpretive data was last revised 2019. Urine 01/17/2025 9:44 AM CDT 01/17/2025 10:47 AM CDT Luna Beckford NP LAB URINE ORDERABLES Мария l Result Performing Organization Address [facility] Co de Phone Number [facility] [place] [address] * Potassium, urine, random (01/17/2025 9:44 AM CDT) Potassium conc, ur 15.1 mmol/L Comment: Interpretive Data No reference range established. Current interpretive data was last revised 2019. Urine 01/17/2025 9:44 AM CDT 01/17/2025 10:47 AM CDT Luna Deanna Analy [employer] LAB URINE ORDERABLES Мария l Result Performing Organization Address [facility] Co de Phone Number [facility] [place] [address] * Osmolality, urine (01/17/2025 9:44 AM CDT) Osmo, ur 257 mOsm/kg Urine 01/17/2025 9:44 AM CDT 01/17/2025 10:47 AM CDT us Linda Harden MD LAB URINE ORDERABLES F inal Result Performing Organization Address [facility] de Phone Number [facility] [place] [address] * Creatinine, urine, random (01/17/2025 9:44 AM CDT) Creatinine Ur 62.4 mg/dL Comment: Interpretive Data No reference range established. Current interpretive data was last revised 2019. Urine 01/17/2025 9:44 AM CDT 01/17/2025 10:47 AM CDT us Luna Beckford NP LAB URINE ORDERABLES Мария l Result Performing Organization Address [facility] de Phone Number [facility] [place] [address] * Chloride, urine, random (01/17/2025 9:44 AM CDT) Chloride, ur <25 mmol/L Comment: Interpretive Data No reference range established. Current interpretive data was last revised 2019. Urine 01/17/2025 9:44 AM CDT 01/17/2025 10:47 AM CDT us Luna Beckford NP LAB URINE ORDERABLES Мария l Result Performing Organization Address [facility]/ZIP Co de Phone Number [facility] [place] [address] * Infection Prevention Pancho auris PCR, surveillance Axilla/Groin (01/17/2025 9:39 AM CDT) Pathologist [facility] Pancho auris DNA Not Detected Not Detected [facility] Comment: Interpretive Data Testing performed by [facility] using the Luz viji [id number] Pancho auris assay. This assay detects DNA from Pancho auris using Real-Time PCR. This assay is laboratory developed and is not cleared by the [place] Food and Drug Administration. The performance characteristics have been verified by the [facility]. Axilla/Groin 01/17/2025 9:39 AM CDT 01/17/2025 10:32 AM CDT Hoang Son MD LAB MICROBIOLOGY - GENERAL ORDER FILI Final Result [facility] [place] [address] [facility] * Tacrolimus level trough (01/17/2025 9:39 AM CDT) Pathologist [facility] Tacrolimus trough 3.9 ng/mL Comment: Interpretive Data Testing performed by liquid chromatography-tandem mass spectrometry. Therapeutic concentrations vary depending on type of transplanted organ and time elapsed since transplant. Typical trough concentrations range from 5-15 ng/mL. This test was developed and its performance characteristics determined by the [facility] consistent with CLIA requirements. This test has not been cleared or approved by the US Food and Drug administration. Current interpretive data last reviewed 2020. Blood 01/17/2025 9:39 AM CDT 01/17/2025 10:38 AM CDT Narrative [facility] - 01/17/2025 2:10 PM CDT Draw exactly 12 HOURS after last dose of tacrolimus was given and just BEFORE giving next dose Linda Harden MD LAB BLOOD ORDERABLES F inal Result Performing Organization Address [facility] Co de Phone Number [facility] [place] [address] * (ABNORMAL) eGFR (01/16/2025 8:19 PM CDT) [facility] eGFR 19(L) >=60 mL/min/1. 73 m2 Comment: [...] ORDERABLES F inal Result Performing Organization Address [facility] Co de Phone Number [facility] [place] [employer] [place] [address] * Lizy-Burton Virus (EBV) DNA Quantitative Blood (01/16/2025 8:19 PM CDT) [facility] EBV DNA Result Not Detected [facility] Comment: Interpretive Data The quantifiable range of this assay is 35 IUnits/mL to 100,000,000 IUnits/mL (1.54 log IUnits/mL to 8.0 log IUnits/mL). Testing was performed by the VIJI 6800 EBV Test ([employer] Testing performed at [facility]. Current interpretive data was last revised on 2023. Blood 01/16/2025 8:19 PM CDT 01/16/2025 9:56 PM CDT Narrative [facility] - 01/17/2025 9:35 PM CDT Can be drawn with routine labs us Luna Beckford NP LAB MICROBIOLOGY - GENERA L ORDERABLES Final Result Performing Organization Address [facility] Co de Phone Number [facility] [place] [address] [facility] * Tacrolimus level trough (01/16/2025 8:19 PM CDT) Pathologist [facility] Tacrolimus trough 4.6 ng/mL Comment: Interpretive Data Testing performed by liquid chromatography-tandem mass spectrometry. Therapeutic concentrations vary depending on type of transplanted organ and time elapsed since transplant. Typical trough concentrations range from 5-15 ng/mL. This test was developed and its performance characteristics determined by the [facility] consistent with CLIA requirements. This test has not been cleared or approved by the US Food and Drug administration. Current interpretive data last reviewed 2020. Blood 01/16/2025 8:19 PM CDT 01/16/2025 9:32 PM CDT Narrative [facility] - 01/17/2025 2:42 AM CDT Draw exactly 12 HOURS after last dose of tacrolimus was given and just BEFORE giving next dose us Linda Harden MD LAB BLOOD ORDERABLES F inal Result Performing Organization Address City/[facility] Co de Phone Number [facility] [place] [address] * (ABNORMAL) CBC without differential (01/16/2025 8:19 PM CDT) [facility] WBC 7.5 3.8 - 9.9 K/cumm Hgb 8.3(L) 11.9 - 15.5 g/dL [facility] Hct 26.5(L) 35.6 - 45.5 % [facility] Plt 145(L) 150 - 400 K/cumm [facility] MPV 8.9(L) 9.1 - 12.3 fL [facility] RBC 2.75(L) 3.90 - 5.20 M/cumm [facility] MCV 96.4 81.3 - 96.4 fL [facility] MCH 30.2 27.1 - 33.3 pg [facility] MCHC 31.3(L) 32.3 - 35.7 g/dL [facility] RDW CV 16.4(H) 11.1 - 14.9 % [facility] RDW SD 57.6(H) 35.7 - 48.1 fL [facility] NRBC abs 0.00 0.00 - 0.01 K/cumm [facility] Blood 01/16/2025 8:19 PM CDT 01/16/2025 9:32 PM CDT us Linda Harden MD LAB BLOOD ORDERABLES F inal Result Performing Organization Address City/[facility] Co de Phone Number [facility] [place] [address] * (ABNORMAL) Magnesium (01/16/2025 8:19 PM CDT) Pathologist [facility] Magnesium 2.8(H) 1.4 - 2.5 mg/dL Blood 01/16/2025 8:19 PM CDT 01/16/2025 9:32 PM CDT Linda Harden MD LAB BLOOD ORDERABLES F inal Result Performing Organization Address City/[facility] Co de Phone Number [facility] [place] [address] * (ABNORMAL) Renal function panel (01/16/2025 8:19 PM CDT) Sodium 129(L) 135 - 145 mmol/L Potassium, pl 5.0(H) 3.3 - 4.9 mmol/L [facility] Chloride 94(L) 97 - 110 mmol/L [facility] CO2 22 22 - 32 mmol/L [facility] Anion gap 13 2 - 15 mmol/L [facility] BUN 84(H) 6 - 25 mg/dL [facility] Creatinine 2.55(H) 0.60 - 1.10 mg/dL [facility] Glucose 230(H) 70 - 199 mg/dL [facility] Comment: Interpretive Data Fasting glucose >/= 126 [...] 2022. Calcium 6.8(L) 8.5 - 10.3 mg/dL [facility] Phosphorus, pl 3.7 2.3 - 4.5 mg/dL [facility] Albumin 3.1(L) 3.5 - 5.0 g/dL [facility] Blood 01/16/2025 8:19 PM CDT 01/16/2025 9:32 PM CDT us Linda Harden MD LAB BLOOD ORDERABLES F inal Result [facility] Department [place] [address] * (ABNORMAL) eGFR (01/16/2025 11:25 AM CDT) [...] 01/16/2025 12:31 PM CDT us Luna Beckford HYDRAULIC RIVETER LAB BLOOD ORDERABLES Мария l Result Performing Organization Address [facility]/ZIP Co de Phone Number [facility] [place] [address] * (ABNORMAL) Magnesium (01/16/2025 11:25 AM CDT) Pathologist [facility] Magnesium 2.7(H) 1.4 - 2.5 mg/dL Blood 01/16/2025 11:2 5 AM CDT 01/16/2025 12:31 PM CDT us Luna Beckford HYDRA[employer] RIVETER LAB BLOOD ORDERABLES Мария l Result [facility] [place] [address] * (ABNORMAL) Renal function panel (01/16/2025 11:25 AM CDT) Sodium 133(L) 135 - 145 mmol/L Potassium, pl 4.2 3.3 - 4.9 mmol/L [facility] Chloride 96(L) 97 - 110 mmol/L [facility] CO2 27 22 - 32 mmol/L [facility] Anion gap 10 2 - 15 mmol/L [facility] BUN 78(H) 6 - 25 mg/dL [facility] Creatinine 2.58(H) 0.60 - 1.10 mg/dL [facility] Glucose 129 70 - 199 mg/dL [facility] Comment: Interpretive Data Fasting glucose >/= 126 [...] 2022. Calcium 6.8(L) 8.5 - 10.3 mg/dL [facility] Phosphorus, pl 3.3 2.3 - 4.5 mg/dL [facility] Albumin 3.1(L) 3.5 - 5.0 g/dL [facility] Blood 01/16/2025 11:2 5 AM CDT 01/16/2025 12:31 PM CDT us Luna Beckford HYDRAUL[employer] RIVETER LAB BLOOD ORDERABLES Мария vera Result [facility] [place] [address] * ECG 12 lead (01/16/2025 8:56 AM CDT) Ventricular Rate EKG/Min 67 BPM [facility] Atrial Rate 67 BPM [facility] NM-Interval (MSEC) 174 ms [facility] QRS-Interval (MSEC) 116 ms [facility] QT-Interval (MSEC) 448 ms [facility] QTc 473 ms [facility] P Reader 70 degrees [facility] R Reader -68 degrees [facility] T Reader 8 degrees [facility] Diagnosis Normal sinus rhythm Left anterior fascicular block Minimal voltage criteria for LVH, may be normal variant ( [place] product ) Abnormal ECG Confirmed by Neftali Brandon MD ([id number]) on 01/16/2025 11:34:23 AM [facility] 01/16/2025 8:56 AM CDT 01/16/2025 11:34 AM CDT us Luna Beckford HYDRAULIC RIVETER ECG ORDERABLES Final Res ult Performing Organization Address [facility]/ZIP Co de Phone Number [facility] * Tacrolimus level trough (01/16/2025 5:00 AM CDT) Tacrolimus trough 5.9 ng/mL Comment: Interpretive Data Testing performed by liquid chromatography-tandem mass spectrometry. Therapeutic concentrations vary depending on type of transplanted organ and time elapsed since transplant. Typical trough concentrations range from 5-15 ng/mL. This test was developed and its performance characteristics determined by the [facility] consistent with CLIA requirements. This test has not been cleared or approved by the US Food and Drug administration. Current interpretive data last reviewed 2020. Blood 01/16/2025 5:00 AM CDT 01/16/2025 5:20 AM CDT Narrative [facility] - 01/16/2025 8:45 AM CDT Draw exactly 12 HOURS after last dose of tacrolimus was given and just BEFORE giving next dose Linda Harden MD LAB BLOOD ORDERABLES F inal Result Performing Organization Address City/[facility] Co de Phone Number [facility] [place] [address] * (ABNORMAL) eGFR (01/15/2025 9:37 PM CDT) [...] ORDERABLES F inal Result Performing Organization Address City/[facility] Co de Phone Number [facility] Department [place] [address] * (ABNORMAL) Calcium, ionized (01/15/2025 9:37 PM CDT) Calcium, Ionized 3.47(L) 4.50 - 5.10 mg/dL Blood 01/15/2025 9:37 PM CDT 01/15/2025 10:15 PM CDT Linda Harden MD LAB BLOOD ORDERABLES F inal Result Performing Organization Address [facility] Co de Phone Number [facility] [place] [address] * Tacrolimus level trough (01/15/2025 9:37 PM CDT) Tacrolimus trough 5.8 ng/mL Comment: Interpretive Data Testing performed by liquid chromatography-tandem mass spectrometry. Therapeutic concentrations vary depending on type of transplanted organ and time elapsed since transplant. Typical trough concentrations range from 5-15 ng/mL. This test was developed and its performance characteristics determined by the [facility] consistent with CLIA requirements. This test has not been cleared or approved by the US Food and Drug administration. Current interpretive data last reviewed 2020. Blood 01/15/2025 9:37 PM CDT 01/15/2025 10:20 PM CDT Narrative [facility] - 01/16/2025 2:20 AM CDT Draw exactly 12 HOURS after last dose of tacrolimus was given and just BEFORE giving next dose Linda Harden MD LAB BLOOD ORDERABLES F inal Result Performing Organization Address [facility] Co de Phone Number [facility] [place] [address] * (ABNORMAL) CBC without differential (01/15/2025 9:37 PM CDT) WBC 6.6 3.8 - 9.9 K/cumm Hgb 8.4(L) 11.9 - 15.5 g/dL [facility] Hct 26.8(L) 35.6 - 45.5 % [facility] Plt 136(L) 150 - 400 K/cumm [facility] MPV 9.5 9.1 - 12.3 fL [facility] RBC 2.75(L) 3.90 - 5.20 M/cumm [facility] MCV 97.5(H) 81.3 - 96.4 fL [facility] MCH 30.5 27.1 - 33.3 pg [facility] MCHC 31.3(L) 32.3 - 35.7 g/dL [facility] RDW CV 16.6(H) 11.1 - 14.9 % [facility] RDW SD 58.4(H) 35.7 - 48.1 fL [facility] NRBC abs 0.00 0.00 - 0.01 K/cumm [facility] Blood 01/15/2025 9:37 PM CDT 01/15/2025 10:20 PM CDT Linda Harden MD LAB BLOOD ORDERABLES F inal Result Performing Organization Address [facility]/ZIP Co de Phone Number [facility] [place] [address] * PTH (01/15/2025 9:37 PM CDT) [facility] PTH 38 15 - 65 pg/mL Blood 01/15/2025 9:37 PM CDT 01/15/2025 10:20 PM CDT Linda Harden MD LAB BLOOD ORDERABLES F inal Result [facility] [place] [address] * (ABNORMAL) Magnesium (01/15/2025 9:37 PM CDT) [facility] Magnesium 2.8(H) 1.4 - 2.5 mg/dL Blood 01/15/2025 9:37 PM CDT 01/15/2025 10:20 PM CDT Linda Harden MD LAB BLOOD ORDERABLES F inal Result Performing Organization Address City/[facility] Co de Phone Number [facility] [place] [address] * (ABNORMAL) Renal function panel (01/15/2025 9:37 PM CDT) [facility] Sodium 131(L) 135 - 145 mmol/L Potassium, pl 4.8 3.3 - 4.9 mmol/L [facility] Chloride 95(L) 97 - 110 mmol/L [facility] CO2 24 22 - 32 mmol/L [facility] Anion gap 12 2 - 15 mmol/L [facility] BUN 82(H) 6 - 25 mg/dL [facility] Creatinine 2.73(H) 0.60 - 1.10 mg/dL [facility] Glucose 180 70 - 199 mg/dL [facility] Comment: Interpretive Data Fasting glucose >/= 126 [...] 2022. Calcium 6.6(L) 8.5 - 10.3 mg/dL [facility] Phosphorus, pl 3.4 2.3 - 4.5 mg/dL [facility] Albumin 2.8(L) 3.5 - 5.0 g/dL [facility] Blood 01/15/2025 9:37 PM CDT 01/15/2025 10:20 PM CDT us Linda Harden MD LAB BLOOD ORDERABLES F inal Result Performing Organization Address City/State/[facility] Co de Phone Number [facility] [place] [address] * TRANSESOPHAGEAL ECHO ([place]) W DOPPLER/CF WO CONTRAST (01/15/2025 11:39 AM CDT) Anatomical Region Laterality Modality Echocardiography 01/15/2025 10:5 9 AM CDT Narrative 01/15/2025 1:[address] 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: Location: [id number] Order Provider: LINDA HARDEN Heart Rate: 62 BMI: Ref Provider: LINDA HARDEN PROCEDURES: Transesophageal Echo Report: [id number] Echocardiography, transesophageal,real-time with image documentation (2D) including probe placement, image acquisition,interpretation, and report; +[id number] Doppler echocardiography, limited pulsed wave and/orcontinuous wave with spectral display; +[id number] Doppler echocardiography color flow velocitymapping; 49740 3D echocardiography, rendering with interpretation and reporting, [...] and its performance characteristics determined by the [facility] consistent with CLIA requirements. This test has not been cleared or approved by the US Food and Drug administration. Current interpretive data last reviewed 2020. Blood 01/15/2025 5:35 AM CDT 01/15/2025 6:29 AM CDT Narrative [facility] - 01/15/2025 10:10 AM CDT Draw exactly 12 HOURS after last dose of tacrolimus was given and just BEFORE giving next dose Linda Harden MD LAB BLOOD ORDERABLES F inal Result Performing Organization Address [facility] Co de Phone Number [facility] [place] [address] * (ABNORMAL) eGFR (01/14/2025 9:26 PM CDT) eGFR 20(L) >=60 mL/min/1. 73 m2 [...] ORDERABLES F inal Result Performing Organization Address City/[facility]/ZIP Co de Phone Number [facility] [place] [address] * Tacrolimus level trough (01/14/2025 9:26 PM CDT) [facility] Tacrolimus trough 6.5 ng/mL Comment: Interpretive Data Testing performed by liquid chromatography-tandem mass spectrometry. Therapeutic concentrations vary depending on type of transplanted organ and time elapsed since transplant. Typical trough concentrations range from 5-15 ng/mL. This test was developed and its performance characteristics determined by the [facility] consistent with CLIA requirements. This test has not been cleared or approved by the US Food and Drug administration. Current interpretive data last reviewed 2020. Blood 01/14/2025 9:26 PM CDT 01/14/2025 10:25 PM CDT Narrative [facility] - 01/15/2025 5:15 AM CDT Draw exactly 12 HOURS after last dose of tacrolimus was given and just BEFORE giving next dose us Linda Harden MD LAB BLOOD ORDERABLES F inal Result [facility] [place] [address] * (ABNORMAL) CBC without differential (01/14/2025 9:26 PM CDT) [facility] WBC 6.0 3.8 - 9.9 K/cumm Hgb 8.9(L) 11.9 - 15.5 g/dL [facility] Hct 28.6(L) 35.6 - 45.5 % [facility] Plt 147(L) 150 - 400 K/cumm [facility] MPV 9.4 9.1 - 12.3 fL [facility] RBC 2.98(L) 3.90 - 5.20 M/cumm [facility] MCV 96.0 81.3 - 96.4 fL [facility] MCH 29.9 27.1 - 33.3 pg [facility] MCHC 31.1(L) 32.3 - 35.7 g/dL [facility] RDW CV 16.5(H) 11.1 - 14.9 % [facility] RDW SD 58.2(H) 35.7 - 48.1 fL [facility] NRBC abs 0.00 0.00 - 0.01 K/cumm [facility] Blood 01/14/2025 9:26 PM CDT 01/14/2025 10:24 PM CDT Linda Harden MD LAB BLOOD ORDERABLES F inal Result Performing Organization Address City/[facility]/ZIP Co de Phone Number [facility] [place] [address] * Magnesium (01/14/2025 9:26 PM CDT) [facility] Magnesium 1.7 1.4 - 2.5 mg/dL Blood 01/14/2025 9:26 PM CDT 01/14/2025 10:23 PM CDT iLnda Hraden MD LAB BLOOD ORDERABLES F inal Result Performing Organization Address [facility] de Phone Number [facility] [place] [address] * (ABNORMAL) Renal function panel (01/14/2025 9:26 PM CDT) [facility] Sodium 133(L) 135 - 145 mmol/L Potassium, pl 4.8 3.3 - 4.9 mmol/L [facility] Chloride 97 97 - 110 mmol/L [facility] CO2 24 22 - 32 mmol/L [facility] Anion gap 12 2 - 15 mmol/L [facility] BUN 78(H) 6 - 25 mg/dL [facility] Creatinine 2.47(H) 0.60 - 1.10 mg/dL [facility] Glucose 135 70 - 199 mg/dL [facility] Comment: Interpretive Data Fasting glucose >/= 126 [...] 2022. Calcium 6.6(L) 8.5 - 10.3 mg/dL [facility] Phosphorus, pl 3.5 2.3 - 4.5 mg/dL [facility] Albumin 2.9(L) 3.5 - 5.0 g/dL [facility] Blood 01/14/2025 9:26 PM CDT 01/14/2025 10:23 PM CDT Linda Harden MD LAB BLOOD ORDERABLES F inal Result Performing Organization Address City/[facility] Co de Phone Number [facility] [place] [address] * Tacrolimus level trough (01/14/2025 5:03 AM CDT) [facility] Tacrolimus trough 4.9 ng/mL Comment: Interpretive Data Testing performed by liquid chromatography-tandem mass spectrometry. Therapeutic concentrations vary depending on type of transplanted organ and time elapsed since transplant. Typical trough concentrations range from 5-15 ng/mL. This test was developed and its performance characteristics determined by the [facility] consistent with CLIA requirements. This test has not been cleared or approved by the US Food and Drug administration. Current interpretive data last reviewed 2020. Blood 01/14/2025 5:03 AM CDT 01/14/2025 6:21 AM CDT Narrative [facility] - 01/14/2025 10:22 AM CDT Draw exactly 12 HOURS after last dose of tacrolimus was given and just BEFORE giving next dose Linda Harden MD LAB BLOOD ORDERABLES F inal Result Performing Organization Address City/[facility] Co de Phone Number [facility] [place] [address] * (ABNORMAL) eGFR (01/13/2025 8:26 PM CDT) [...] 8:26 PM CDT 01/13/2025 8:47 PM CDT us Linda Harden MD LAB BLOOD ORDERABLES F inal Result [facility] [place] [address] * Tacrolimus level trough (01/13/2025 8:26 PM CDT) Tacrolimus trough 5.1 ng/mL Comment: Interpretive Data Testing performed by liquid chromatography-tandem mass spectrometry. Therapeutic concentrations vary depending on type of transplanted organ and time elapsed since transplant. Typical trough concentrations range from 5-15 ng/mL. This test was developed and its performance characteristics determined by the [facility] consistent with CLIA requirements. This test has not been cleared or approved by the US Food and Drug administration. Current interpretive data last reviewed 2020. Blood 01/13/2025 8:26 PM CDT 01/13/2025 8:47 PM CDT Narrative [facility] - 01/14/2025 4:02 AM CDT Draw exactly 12 HOURS after last dose of tacrolimus was given and just BEFORE giving next dose Linda Harden MD LAB BLOOD ORDERABLES F inal Result Performing Organization Address [facility] de Phone Number [facility] [place] [address] * (ABNORMAL) CBC without differential (01/13/2025 8:26 PM CDT) [facility] WBC 5.3 3.8 - 9.9 K/cumm Hgb 9.3(L) 11.9 - 15.5 g/dL [facility] Hct 30.0(L) 35.6 - 45.5 % [facility] Plt 146(L) 150 - 400 K/cumm [facility] MPV 9.6 9.1 - 12.3 fL [facility] RBC 3.09(L) 3.90 - 5.20 M/cumm [facility] MCV 97.1(H) 81.3 - 96.4 fL [facility] MCH 30.1 27.1 - 33.3 pg [facility] MCHC 31.0(L) 32.3 - 35.7 g/dL [facility] RDW CV 16.9(H) 11.1 - 14.9 % [facility] RDW SD 59.7(H) 35.7 - 48.1 fL [facility] NRBC abs 0.00 0.00 - 0.01 K/cumm [facility] Blood 01/13/2025 8:26 PM CDT 01/13/2025 8:47 PM CDT us Linda Harden MD LAB BLOOD ORDERABLES F inal Result Performing Organization Address [facility]/ZIP Co de Phone Number [facility] [place] [address] * Magnesium (01/13/2025 8:26 PM CDT) Pathologist [facility] Magnesium 1.8 1.4 - 2.5 mg/dL Blood 01/13/2025 8:26 PM CDT 01/13/2025 8:47 PM CDT Linda Harden MD LAB BLOOD ORDERABLES F inal Result [facility] [address] [facility] [place] [address] * (ABNORMAL) Renal function panel (01/13/2025 8:26 PM CDT) Pathologist [facility] Sodium 139 135 - 145 mmol/L Potassium, pl 4.4 3.3 - 4.9 mmol/L [facility] Chloride 101 97 - 110 mmol/L [facility] CO2 25 22 - 32 mmol/L [facility] Anion gap 13 2 - 15 mmol/L [facility] BUN 77(H) 6 - 25 mg/dL [facility] Creatinine 2.72(H) 0.60 - 1.10 mg/dL [facility] Glucose 138 70 - 199 mg/dL [facility] Comment: Interpretive Data Fasting glucose >/= 126 [...] 2022. Calcium 7.0(L) 8.5 - 10.3 mg/dL [facility] Phosphorus, pl 4.1 2.3 - 4.5 mg/dL [facility] Albumin 3.4(L) 3.5 - 5.0 g/dL [facility] Blood 01/13/2025 8:26 PM CDT 01/13/2025 8:47 PM CDT Linda Harden MD LAB BLOOD ORDERABLES F inal Result Performing Organization Address [facility] de Phone Number [facility] [place] [address] * (ABNORMAL) Protein / creatinine ratio, urine, random (01/13/2025 5:20 PM CDT) Protein, ur, quant 30.4 mg/dL Comment: Interpretive Data No reference range established. Current interpretive data was last revised 2019. Creatinine Ur 37.4 mg/dL [facility] Comment: Interpretive Data No reference range established. Current interpretive data was last revised 2019. Protein/creatinin e ratio 812.8(H) 0.0 - 180.0 mg/g CR [facility] Urine 01/13/2025 5:20 PM CDT 01/13/2025 5:55 PM CDT Linda Harden MD LAB URINE ORDERABLES F inal Result Performing Organization Address [facility] de Phone Number [facility] [address] [facility] [place] [address] * Infection Prevention Pancho auris PCR, surveillance Axilla/Groin (01/13/2025 8:29 AM CDT) Pathologist [facility] Pancho auris DNA Not Detected Not Detected [facility] Comment: Interpretive Data Testing performed by [facility] using the Luz viji 6800 Pancho auris assay. This assay detects DNA from Pancho auris using Real-Time PCR. This assay is laboratory developed and is not cleared by the [place] Food and Drug Administration. The performance characteristics have been verified by the [facility]. Axilla/Groin 01/13/2025 8:29 AM CDT 01/13/2025 9:45 AM CDT Hoang Son MD LAB MICROBIOLOGY - GENERAL ORDER FILI Final Result Performing Organization Address [facility]/ZIP Co de Phone Number [facility] [place] [address] [facility] * Tacrolimus level trough (01/13/2025 5:09 AM CDT) Pathologist [facility] Tacrolimus trough 4.6 ng/mL Comment: Interpretive Data Testing performed by liquid chromatography-tandem mass spectrometry. Therapeutic concentrations vary depending on type of transplanted organ and time elapsed since transplant. Typical trough concentrations range from 5-15 ng/mL. This test was developed and its performance characteristics determined by the [facility] consistent with CLIA requirements. This test has not been cleared or approved by the [place] Food and Drug administration. Current interpretive data last reviewed 2020. Blood 01/13/2025 5:09 AM CDT 01/13/2025 6:15 AM CDT [facility]arrative [facility] - 01/13/2025 11:20 AM CDT Draw exactly 12 HOURS after last dose of tacrolimus was given and just BEFORE giving next dose Linda Harden MD LAB BLOOD ORDERABLES F inal Result [facility] [place] [address] * (ABNORMAL) eGFR (01/12/2025 9:26 PM CDT) [facility] eGFR 18(L) >=60 mL/min/1. 73 m2 Comment: [...] ORDERABLES F inal Result Performing Organization Address [facility] de Phone Number [facility] Department [place] [address] * Tacrolimus level trough (01/12/2025 9:26 PM CDT) [facility] Tacrolimus trough 4.7 ng/mL Comment: Interpretive Data Testing performed by liquid chromatography-tandem mass spectrometry. Therapeutic concentrations vary depending on type of transplanted organ and time elapsed since transplant. Typical trough concentrations range from 5-15 ng/mL. This test was developed and its performance characteristics determined by the [facility] consistent with CLIA requirements. This test has not been cleared or approved by the [place] Food and Drug administration. Current interpretive data last reviewed 2020. Blood 01/12/2025 9:26 PM CDT 01/12/2025 10:03 PM CDT N[address]ative [facility] - 01/13/2025 2:44 AM CDT Draw exactly 12 HOURS after last dose of tacrolimus was given and just BEFORE giving next dose Linda Harden MD LAB BLOOD ORDERABLES F inal Result Performing Organization Address [facility] de Phone Number [facility] [place] [address] * (ABNORMAL) Urinalysis reflex to microscopic and culture Urine (01/12/2025 9:26 PM CDT) Color, ur Straw Yellow Clarity, ur Cloudy(A) Clear [facility] Specific gravity, ur 1.009 1.003 - 1.030 [facility] pH, urine 6.0 [facility] Comment: Interpretive Data U rine pH is affected by diet, medications, systemic acid-base disturbances, and renal tubular function. pH may affect urinary stone formation. For example, urine pH below 6.0 may help reduce the tendency for calcium phosphate stones and pH greater than 6.0 may reduce the tendency for uric acid stone formation. Source: [facility] Current Interpretive Data was last revised on 2017 Protein, ur ql 1+(A) Negative [facility] Glucose, ur ql Negative Negative [facility] Ketones, ur Negative Negative [facility] Bilirubin, ur Negative Negative [facility] Blood, ur Trace(A) Negative [facility] Urobilinogen, ur <2.0 <2.0 mg/dL [facility] Nitrite, ur Negative Negative [facility] Leukocyte esterase, ur 3+(A) Negative [facility] UA reflex comment Reflex to microscopic UA will be performed. [facility] Urine 01/12/2025 9:26 PM CDT 01/12/2025 9:56 PM CDT us Linda Harden MD LAB MICROBIOLOGY - GEN ERAL ORDERABLES Final Result [facility] [address] [facility] [place] [address] * (ABNORMAL) Urinalysis, microscopic only (01/12/2025 9:26 PM CDT) WBC, ur >50(A) 0 - 5 /HPF RBC, ur 21-50(A) 0 - 2 /HPF [facility] Epithelial cells, squamous, ur 6-10(A) 0 - 5 /HPF [facility] Comment:Suggestive of contam ination. Consider recollection by clean catch. Epithelial cells, renal, ur 1-5(A) 0 - 0 /HPF [facility] Epithelial cells, transitional, ur 1-5 0 - 0 /HPF [facility] Bacteria, ur 1+(A) [facility] Mucous, ur Present(A) [facility] Hyaline casts, ur 1-5 0 - 10 /LPF [facility] Culture Reflex Comment Reflex to urine culture will be performed. [facility] Urine 01/12/2025 9:26 PM CDT 01/12/2025 9:56 PM CDT Linda Harden MD LAB URINE ORDERABLES F inal Result Performing Organization Address [facility] Co de Phone Number [facility] [place] [address] * (ABNORMAL) CBC without differential (01/12/2025 9:26 PM CDT) WBC 5.1 3.8 - 9.9 K/cumm Hgb 9.0(L) 11.9 - 15.5 g/dL [facility] Hct 29.2(L) 35.6 - 45.5 % [facility] Plt 136(L) 150 - 400 K/cumm [facility] MPV 9.7 9.1 - 12.3 fL [facility] RBC 3.01(L) 3.90 - 5.20 M/cumm [facility] MCV 97.0(H) 81.3 - 96.4 fL [facility] MCH 29.9 27.1 - 33.3 pg [facility] MCHC 30.8(L) 32.3 - 35.7 g/dL [facility] RDW CV 17.0(H) 11.1 - 14.9 % [facility] RDW SD 59.7(H) 35.7 - 48.1 fL [facility] NRBC abs 0.00 0.00 - 0.01 K/cumm [facility] Blood 01/12/2025 9:26 PM CDT 01/12/2025 10:02 PM CDT Linda Harden MD LAB BLOOD ORDERABLES F inal Result Performing Organization Address [facility] Co de Phone Number [facility] [place] [address] * Urine culture Urine (01/12/2025 9:26 PM CDT) [facility] Report Final Report: Growth indicative of contamination with periurethral dash. Please submit a new specimen with special attention given to the collection process and to prompt transport to the laboratory. Organism GROWTH INDICATES CONTAM WITH PERIURETHRAL DASH. [facility] Urine 01/12/2025 9:26 PM CDT 01/12/2025 11:32 PM CDT Narrative [facility] - 01/15/2025 4:05 PM CDT Urine culture reflexed based upon urinalysis results. Testing performed by [facility] ([phone]) Linda Harden MD LAB MICROBIOLOGY - GEN ERAL ORDERABLES Final Result Performing Organization Address City/[facility]/ZIP Co de Phone Number [facility] [place] [address] * Magnesium (01/12/2025 9:26 PM CDT) [facility] Magnesium 1.9 1.4 - 2.5 mg/dL Blood 01/12/2025 9:26 PM CDT 01/12/2025 10:01 PM CDT Linda Harden MD LAB BLOOD ORDERABLES F inal Result Performing Organization Address City/[facility]/ZIP Co de Phone Number [facility] [place] [address] * (ABNORMAL) Renal function panel (01/12/2025 9:26 PM CDT) [facility] Sodium 138 135 - 145 mmol/L Potassium, pl 4.4 3.3 - 4.9 mmol/L [facility] Chloride 102 97 - 110 mmol/L [facility] CO2 25 22 - 32 mmol/L [facility] Anion gap 11 2 - 15 mmol/L [facility] BUN 82(H) 6 - 25 mg/dL [facility] Creatinine 2.65(H) 0.60 - 1.10 mg/dL [facility] Glucose 125 70 - 199 mg/dL [facility] Comment: Interpretive Data Fasting glucose >/= 126 [...] 2022. Calcium 7.1(L) 8.5 - 10.3 mg/dL [facility] Phosphorus, pl 4.3 2.3 - 4.5 mg/dL [facility] Albumin 3.2(L) 3.5 - 5.0 g/dL [facility] Blood 01/12/2025 9:26 PM CDT 01/12/2025 10:01 PM CDT us Linda Harden MD LAB BLOOD ORDERABLES F inal Result [facility] [address] [facility] [place] [address] * US Renal Transplant W Dopplers (01/12/2025 [...] DOPPLER HISTORY: 74-year-old woman with renal transplant 2012 presenting with acute kidney injury. COMPARISON: CT [...] it. Electronically signed by: Sara Miller M.D. Linda Harden MD IMG US PROCEDURES Мария l Result * BK virus PCR quantitative Blood (01/12/2025 5:18 PM CDT) [facility] BKV DNA result, pl Not Detected [facility] Comment: The quantifiable range of this assay is 21.5 IU/mL to 100,000,000 IU/mL (1.33 log IU/mL to 8.00 log IU/mL). Testing was performed by the VIJI 6800 BKV Quantatitive Test version 2.0 ([employer] Testing performed at [facility] Current Interpretive Data was last revised on 2021. Blood 01/12/2025 5:18 PM CDT 01/12/2025 5:55 PM CDT Result [facility] Linda Harden MD LAB MICROBIOLOGY - GEN ERAL ORDERABLES Final Result Performing Organization Address [facility] de Phone Number [facility] [place] [address] [facility] * Cytomegalovirus (CMV) DNA PCR, quantitative Blood (01/12/2025 5:18 PM CDT) [facility] CMV DNA Not Detected [facility] Comment: Interpretive Data: The quantifiable range of this assay is 34 IUnits/mL to 10,000,000 IUnits/mL (1.53 log IUnits/mL to 7.0 log IUnits/mL). Testing was performed by the VIJI 6800 CMV Test ([employer] Testing performed at [facility]. Current interpretive data was last revised on 2021. Blood 01/12/2025 5:18 PM CDT 01/12/2025 5:55 PM CDT Linda Harden MD LAB MICROBIOLOGY - GEN ERAL ORDERABLES Final Result Performing Organization Address [facility] Co de Phone Number [facility] [place] [address] [facility] * (ABNORMAL) Lizy-Burton Virus (EBV) DNA Quantitative Blood (01/12/2025 5:18 PM CDT) [facility] EBV DNA Result Detected( A) [facility] Comment: Interpretive Data The quantifiable range of this assay is 35 IUnits/mL to 100,000,000 IUnits/mL (1.54 log IUnits/mL to 8.0 log IUnits/mL). Testing was performed by the VIJI 6800 EBV Test ([employer] Testing performed at [facility]. Current interpretive data was last revised on 2023. EBV DNA IU/mL <35 IUnits/mL [facility] EBV DNA log IU/mL <1.54 log IUnits/mL [facility] Blood 01/12/2025 5:18 PM CDT 01/12/2025 5:55 PM CDT us Linda Harden MD LAB MICROBIOLOGY - GEN ERAL ORDERABLES Final Result [facility] [address] [facility] [place] [address] [facility] * (ABNORMAL) Lizy-Burton virus (EBV) antibody panel Blood (01/12/2025 5:18 PM CDT) [facility] EBV nuclear Ab Negative Negative Comment:No detectable IgG an tibody to EBV Nuclear Antigen. EBV VCA IgG Positive(A) Negative [facility] Comment:Indicates the presen ce of antibody; 90% of the adult population will have been infected with EBV sometime in the past. EBV VCA IgM Negative Negative [facility] Comment:No detectable IgM an tibody to EBV-VCA. A negative result indicates no current infection with EBV. If clinical suspicion of acute EBV infection is present, testing should be repeated after one week. EBV interp See Comment [facility] Comment: Results indicate infection with EBV at [...] 5:59 PM CDT Linda Harden MD LAB MICROBIOLOGY - GEN ERAL ORDERABLES Final Result Performing Organization Address [facility] Co de Phone Number [facility] [place] [address] * Urea nitrogen, urine, random (01/12/2025 5:18 PM CDT) Urea nitrogen, ur 280 mg/dL Comment: Interpretive Data No reference range established. Current interpretive data was last revised 2019. Urine 01/12/2025 5:18 PM CDT 01/12/2025 5:59 PM CDT Linda Harden MD LAB URINE ORDERABLES F inal Result Performing Organization Address [facility] de Phone Number [facility] [place] [address] * Sodium, urine, random (01/12/2025 5:18 PM CDT) Sodium, ur 75 mmol/L Comment: Interpretive Data No reference range established. Current interpretive data was last revised 2019. Urine 01/12/2025 5:18 PM CDT 01/12/2025 5:59 PM CDT Linda Harden MD LAB URINE ORDERABLES F inal Result Performing Organization Address [facility] de Phone Number [facility] [place] [address] * Creatinine, urine, random (01/12/2025 5:18 PM CDT) Creatinine Ur 30.9 mg/dL Comment: Interpretive Data No reference range established. Current interpretive data was last revised 2019. Urine 01/12/2025 5:18 PM CDT 01/12/2025 5:59 PM CDT Linda Harden MD LAB URINE ORDERABLES F inal Result Performing Organization Address [facility] de Phone Number [facility] [place] [address] * (ABNORMAL) Calcium, ionized (01/12/2025 6:47 AM CDT) [facility] Calcium, Ionized 3.76(L) 4.50 - 5.10 mg/dL Blood 01/12/2025 6:47 AM CDT 01/12/2025 7:25 AM CDT Elijah Florez MD LAB BLOOD ORDERABLES Final R esult Performing Organization Address [facility] Phone Number [facility] [place] [address] * Tacrolimus level trough (01/12/2025 6:41 AM CDT) [facility] Tacrolimus trough 4.0 ng/mL Comment: Interpretive Data Testing performed by liquid chromatography-tandem mass spectrometry. Therapeutic concentrations vary depending on type of transplanted organ and time elapsed since transplant. Typical trough concentrations range from 5-15 ng/mL. This test was developed and its performance characteristics determined by the [facility] consistent with CLIA requirements. This test has not been cleared or approved by the [place] Food and Drug administration. Current interpretive data last reviewed 2020. Blood 01/12/2025 6:41 AM CDT 01/12/2025 7:35 AM CDT Narrative [facility] - 01/12/2025 11:34 AM CDT Draw exactly 12 HOURS after last dose of tacrolimus was given and just BEFORE giving next dose us Linda Harden MD LAB BLOOD ORDERABLES F inal Result Performing Organization Address City/[facility] Co de Phone Number [facility] [place] [address] * (ABNORMAL) eGFR (01/11/2025 11:13 PM RADIOACTIVITY TECHNICIAN) Pathologist [facility] eGFR 18(L) >=60 mL/min/1. 73 m2 Comment: [...] reviewed 2021. Blood 01/11/2025 11:1 3 PM RADIOACTIVITY TECHNICIAN 01/12/2025 12:06 AM RADIOACTIVITY TECHNICIAN us Bunny Islas MD PhD LAB BLOOD ORDERABLES Final Result Performing Organization Address City/[facility]/ZIP Co de Phone Number [facility] [place] [address] * (ABNORMAL) Differential, auto (01/11/2025 11:13 PM RADIOACTIVITY TECHNICIAN) Pathologist [facility] Neutrophil abs 1.3(L) 1.5 - 6.5 K/cumm Imm gran abs 0.1 0.0 - 0.1 K/cumm [facility] Lymphocyte abs 2.1 0.8 - 3.3 K/cumm [facility] Monocyte abs 1.0(H) 0.2 - 0.8 K/cumm [facility] Eosinophil abs 0.1 0.0 - 0.5 K/cumm [facility] Basophil abs 0.0 0.0 - 0.1 K/cumm [facility] Neutrophil pct 28.7 % [facility] Comment: Interpretive Data Percent cell count reference ranges are not reported, since discordance with absolute values may lead to misinterpretation of CBC data. Current Interpretive Data was last revised on 2018. Imm gran pct 1.1 % [facility] Comment: Interpretive Data Percent cell count reference ranges are not reported, since discordance with absolute values may lead to misinterpretation of CBC data. Current Interpretive Data was last revised on 2018. Lymphocyte pct 46.4 % [facility] Comment: Interpretive Data Percent cell count reference ranges are not reported, since discordance with absolute values may lead to misinterpretation of CBC data. Current Interpretive Data was last revised on 2018. Monocyte pct 20.8 % [facility] Comment: Interpretive Data Percent cell count reference ranges are not reported, since discordance with absolute values may lead to misinterpretation of CBC data. Current Interpretive Data was last revised on 2018. Eosinophil pct 2.6 % [facility] Comment: Interpretive Data Percent cell count reference ranges are not reported, since discordance with absolute values may lead to misinterpretation of CBC data. Current Interpretive Data was last revised on 2018. Basophil pct 0.4 % [facility] Comment: Interpretive Data Percent cell count reference ranges are not reported, since discordance with absolute values may lead to misinterpretation of CBC data. Current Interpretive Data was last revised on 2018. Blood 01/11/2025 11:1 3 PM RADIOACTIVITY TECHNICIAN 01/12/2025 12:06 AM RADIOACTIVITY TECHNICIAN us Bunny Islas MD PhD LAB BLOOD ORDERABLES Final Result [facility] [place] [address] * (ABNORMAL) Pro B-type natriuretic peptide (01/11/2025 11:13 PM RADIOACTIVITY TECHNICIAN) NT-proBNP 10,879(H) <=450 pg/mL Comment: Interpretive Comments: [...] Date: 2018. Blood 01/11/2025 11:1 3 PM RADIOACTIVITY TECHNICIAN 01/12/2025 12:06 AM RADIOACTIVITY TECHNICIAN us Bunny Islas MD PhD LAB BLOOD ORDERABLES Final Result [facility] Department of Laboratories [place], [place] [id number] * (ABNORMAL) CBC with auto differential (01/11/2025 11:13 PM RADIOACTIVITY TECHNICIAN) WBC 4.6 3.8 - 9.9 K/cumm Hgb 8.1(L) 11.9 - 15.5 g/dL [facility] Hct 26.6(L) 35.6 - 45.5 % [facility] Plt 125(L) 150 - 400 K/cumm [facility] MPV 9.7 9.1 - 12.3 fL [facility] RBC 2.73(L) 3.90 - 5.20 M/cumm [facility] MCV 97.4(H) 81.3 - 96.4 fL [facility] MCH 29.7 27.1 - 33.3 pg [facility] MCHC 30.5(L) 32.3 - 35.7 g/dL [facility] RDW CV 17.1(H) 11.1 - 14.9 % [facility] RDW SD 60.0(H) 35.7 - 48.1 fL [facility] NRBC abs 0.02(H) 0.00 - 0.01 K/cumm [facility] Blood 01/11/2025 11:1 3 PM RADIOACTIVITY TECHNICIAN 01/12/2025 12:06 AM RADIOACTIVITY TECHNICIAN us Bunny Islas MD PhD LAB BLOOD ORDERABLES Final Result Performing Organization Address City/[facility]/ZIP Co de Phone Number [facility] [place] [address] * Vitamin D 25 hydroxy (01/11/2025 11:13 PM RADIOACTIVITY TECHNICIAN) [facility] Vitamin D 25-OH 36 30 - 80 ng/mL Blood 01/11/2025 11:1 3 PM RADIOACTIVITY TECHNICIAN 01/12/2025 12:06 AM RADIOACTIVITY TECHNICIAN us Linda Harden MD LAB BLOOD ORDERABLES F inal Result Performing Organization Address City/[facility]/ZIP Co de Phone Number [facility] [place] [address] * Phosphorus (01/11/2025 11:13 PM RADIOACTIVITY TECHNICIAN) [facility] Phosphorus, pl 4.2 2.3 - 4.5 mg/dL Blood 01/11/2025 11:1 3 PM RADIOACTIVITY TECHNICIAN 01/12/2025 12:06 AM RADIOACTIVITY TECHNICIAN Bunny Islas MD PhD LAB BLOOD ORDERABLES Final Result Performing Organization Address [facility] de Phone Number [facility] [place] [place] [address] * Magnesium (01/11/2025 11:13 PM RADIOACTIVITY TECHNICIAN) [facility] Magnesium 2.0 1.4 - 2.5 mg/dL Blood 01/11/2025 11:1 3 PM RADIOACTIVITY TECHNICIAN 01/12/2025 12:06 AM RADIOACTIVITY TECHNICIAN Result [facility] Bunny Islas MD PhD LAB BLOOD ORDERABLES Final Result Performing Organization Address [facility] Phone Number [facility] [place] [employer] [place] [address] * Hemoglobin A1c (01/11/2025 11:13 PM RADIOACTIVITY TECHNICIAN) [facility] Hgb A1C 5.2 4.0 - 5.6 % Estimated Average Glucose 103 mg/dL [facility] Comment: The ADA recommends reporting an estimated Average Glucose (eAG) with all Hemoglobin A1c results using the equation derived from a study of 507 normal and diabetic adults. Minority populations were underrepresented and children were not included. (Diabetes Care 2020; 43(S1): S66-S76). The eAG is not equivalent to a fasting glucose. Blood 01/11/2025 11:1 3 PM RADIOACTIVITY TECHNICIAN 01/12/2025 12:06 AM RADIOACTIVITY TECHNICIAN Result [facility] Linda Harden MD LAB BLOOD ORDERABLES F inal Result Performing Organization Address [facility] Co de Phone Number [facility] [place] [employer] [place] [address] * (ABNORMAL) Comprehensive metabolic panel (01/11/2025 11:13 PM RADIOACTIVITY TECHNICIAN) Sodium 142 135 - 145 mmol/L Potassium, pl 4.5 3.3 - 4.9 mmol/L [facility] Chloride 104 97 - 110 mmol/L [facility] CO2 25 22 - 32 mmol/L [facility] Anion gap 13 2 - 15 mmol/L [facility] BUN 83(H) 6 - 25 mg/dL [facility] Creatinine 2.69(H) 0.60 - 1.10 mg/dL [facility] Glucose 133 70 - 199 mg/dL [facility] Comment: Interpretive Data Fasting glucose >/= 126 [...] 2022. Calcium 6.8(L) 8.5 - 10.3 mg/dL [facility] Bilirubin, total 0.4 0.1 - 1.2 mg/dL [facility] Protein, pl 6.2(L) 6.5 - 8.5 g/dL [facility] Albumin 3.1(L) 3.5 - 5.0 g/dL [facility] Alk phos 53 40 - 130 Units/L [facility] ALT 13 7 - 45 Units/L [facility] AST 24 10 - 45 Units/L [facility] Blood 01/11/2025 11:1 3 PM RADIOACTIVITY TECHNICIAN 01/12/2025 12:06 AM RADIOACTIVITY TECHNICIAN us Bunny Islas MD PhD LAB BLOOD ORDERABLES Final Result [facility] [place] [address] * ECG 12 lead (01/11/2025 10:54 PM RADIOACTIVITY TECHNICIAN) [facility] Ventricular Rate EKG/Min 63 BPM [facility] Atrial Rate 63 BPM [facility] NM-Interval (MSEC) 162 ms [facility] QRS-Interval (MSEC) 116 ms [facility] QT-Interval (MSEC) 434 ms [facility] QTc 444 ms [facility] P Reader 71 degrees [facility] R Reader -50 degrees [facility] T Reader 43 degrees [facility] Diagnosis Normal sinus rhythm Left anterior fascicular block Minimal voltage criteria for LVH, may be normal variant ( Talib product ) Slow R wave progression-- may be secondary to left axis deviation but consider lead placement, anterior infarction, copd, etc. Abnormal ECG When compared with ECG of 26-DEC-2024 12:13, ST elevation now present in Anterior leads Confirmed by HALLEY HARRIS M.D ([id number]) on 01/20/2025 9:54:47 AM [facility] 01/11/2025 10:5 4 PM RADIOACTIVITY TECHNICIAN 01/20/2025 9:54 AM CDT us Bunny Islas MD PhD ECG ORDERABLES Мария l Result [facility] * (ABNORMAL) eGFR (01/11/2025 8:17 AM RADIOACTIVITY TECHNICIAN) [facility] eGFR 21(L) >=60 mL/min/1. 73 m2 Comment: [...] was last reviewed 2021. Testing performed by: [address] [address] Blood 01/11/2025 8:17 AM RADIOACTIVITY TECHNICIAN 01/11/2025 8:45 AM RADIOACTIVITY TECHNICIAN us Rica Khan HYDRAULIC RIVETER LAB BLOOD ORDERABLES Final Res ult Performing Organization Address [facility] Co de Phone Number [address] [place] [address] * (ABNORMAL) Reticulocyte Count (01/11/2025 8:17 AM RADIOACTIVITY TECHNICIAN) Retics, absolute 0.101(H) 0.020 - 0.087 M/cumm Comment:Testing performed by : [address] [address] Retics 3.6(H) 0.4 - 2.9 % [facility] Comment:Testing performed by : [address] [address] Reticulocyte Hgb 34.8 30.5 - 38.0 pg [facility] Comment:Testing performed by : [address] [address] Blood 01/11/2025 8:17 AM RADIOACTIVITY TECHNICIAN 01/11/2025 8:46 AM RADIOACTIVITY TECHNICIAN us Joseph Dowd MD LAB BLOOD ORDERABLES F inal Result Performing Organization Address [facility] de Phone Number [address] [place] [address] * (ABNORMAL) CBC without differential (01/11/2025 8:17 AM RADIOACTIVITY TECHNICIAN) WBC 4.0 3.8 - 9.9 K/cumm Comment:Testing performed by : [address] [address] Hgb 8.3(L) 11.9 - 15.5 g/dL [facility] Comment:Testing performed by : [address], [address] Hct 27.7(L) 35.6 - 45.5 % CERRITCHIE Comment:Testing performed by : [address] [address] Plt 135(L) 150 - 400 K/cumm [facility] Comment:Testing performed by : [address] [address] MPV 9.6 9.1 - 12.3 fL [facility] Comment:Testing performed by : [address], [address] RBC 2.82(L) 3.90 - 5.20 M/cumm [facility] Comment:Testing performed by : [address] [address] MCV 98.2(H) 81.3 - 96.4 fL [facility] Comment:Testing performed by : [address] [address] MCH 29.4 27.1 - 33.3 pg [facility] Comment:Testing performed by : [address] [address] MCHC 30.0(L) 32.3 - 35.7 g/dL [facility] Comment:Testing performed by : [address] [address] RDW CV 16.6(H) 11.1 - 14.9 % [facility] Comment:Testing performed by : [address], [address] RDW SD 59.1(H) 35.7 - 48.1 fL [facility]Testing performed by : [address], [address] NRBC abs 0.02(H) 0.00 - 0.01 K/cumm [facility] Comment:Testing performed by : [address], [address] Blood 01/11/2025 8:17 AM RADIOACTIVITY TECHNICIAN 01/11/2025 8:46 AM RADIOACTIVITY TECHNICIAN us Joseph Dowd MD LAB BLOOD ORDERABLES F inal Result [facility] [address] [facility] Department [place] [address] * (ABNORMAL) Comprehensive metabolic panel (01/11/2025 8:17 AM RADIOACTIVITY TECHNICIAN) Sodium 139 135 - 145 mmol/L Comment:Testing performed by : [address] [address] Potassium, pl 4.1 3.3 - 4.9 mmol/L [facility] Comment:Testing performed by : [address] [address] Chloride 103 97 - 110 mmol/L [facility] Comment:Testing performed by : [address] [address] CO2 23 22 - 32 mmol/L [facility] Comment:Testing performed by : [address] [address] Anion gap 13 2 - 15 mmol/L [facility] Comment:Testing performed by : [address] [address] BUN 85(H) 6 - 25 mg/dL [facility] Comment:Testing performed by : [address] [address] Creatinine 2.39(H) 0.60 - 1.10 mg/dL [facility] Comment:Testing performed by : [address] [address] Glucose 69(L) 70 - 199 mg/dL [facility] [...] classification and Diagnosis of Diabetes Diabetes Care 2022; 46: S19-S40. Current interpretive data was last revised 2022. Testing performed by: [address] [address] Calcium 7.2(L) 8.5 - 10.3 mg/dL [facility] Comment:Testing performed by : [address] [address] Bilirubin, total 0.4 0.1 - 1.2 mg/dL [facility] Comment:Testing performed by : [address] [address] Protein, pl 6.1(L) 6.5 - 8.5 g/dL [facility] Comment:Testing performed by : [address] [address] Albumin 3.1(L) 3.5 - 5.0 g/dL [facility] Comment:Testing performed by : [address] [address] Alk phos 41 40 - 130 Units/L [facility] Comment:Testing performed by : [address] [address] ALT 12 7 - 45 Units/L [facility] Comment:Testing performed by : [address] [address] AST 22 10 - 45 Units/L [facility] Comment:Testing performed by : [address] [address] Blood 01/11/2025 8:17 AM RADIOACTIVITY TECHNICIAN 01/11/2025 8:45 AM RADIOACTIVITY TECHNICIAN us Rica Khan HYDRAULIC RIVETER LAB BLOOD ORDERABLES Final Res ult [facility] [address] [facility] Department [place] [address] * (ABNORMAL) eGFR (01/10/2025 5:05 AM RADIOACTIVITY TECHNICIAN) eGFR 18(L) >=60 mL/min/1. 73 m2 Comment: [...] was last reviewed 2021. Testing performed by: [address] [address] Blood 01/10/2025 5:05 AM RADIOACTIVITY TECHNICIAN 01/10/2025 5:50 AM RADIOACTIVITY TECHNICIAN us Rica Khan HYDRAULIC RIVETER LAB BLOOD ORDERABLES Final Res ult [facility] [address] [facility] Department [place] [address] * (ABNORMAL) CBC without differential (01/10/2025 5:05 AM RADIOACTIVITY TECHNICIAN) WBC 3.6(L) 3.8 - 9.9 K/cumm Comment:Testing performed by : [address] [address] Hgb 8.0(L) 11.9 - 15.5 g/dL [facility] LOYA Comment:Testing performed by : [address] [address] Hct 25.9(L) 35.6 - 45.5 % [facility] Comment:Testing performed by : [address] [address] Plt 114(L) 150 - 400 K/cumm [facility] Comment:Testing performed by : [address] [address] MPV 9.2 9.1 - 12.3 fL [facility] LOYA Comment:Testing performed by : [address] [address] RBC 2.65(L) 3.90 - 5.20 M/cumm [facility] LOYA Comment:Testing performed by : [address] [address] MCV 97.7(H) 81.3 - 96.4 fL [facility] LOYA Comment:Testing performed by : [address] [address] MCH 30.2 27.1 - 33.3 pg [facility] LOYA Comment:Testing performed by : [address] [address] MCHC 30.9(L) 32.3 - 35.7 g/dL [facility] LOYA Comment:Testing performed by : [address] [address] RDW CV 16.7(H) 11.1 - 14.9 % [facility] Comment:Testing performed by : [address] [address] RDW SD 58.1(H) 35.7 - 48.1 fL [facility] Comment:Testing performed by : [address] [address] NRBC abs 0.00 0.00 - 0.01 K/cumm [facility] Comment:Testing performed by : [address] [address] Blood 01/10/2025 5:05 AM RADIOACTIVITY TECHNICIAN 01/10/2025 5:50 AM RADIOACTIVITY TECHNICIAN us Joseph Dowd MD LAB BLOOD ORDERABLES F inal Result [facility] [address] [facility] Department of Laboratories [place], [place] [id number] * (ABNORMAL) Comprehensive metabolic panel (01/10/2025 5:05 AM RADIOACTIVITY TECHNICIAN) [facility] Signature Sodium 137 135 - 145 mmol/L Comment:Testing performed by : [address] [place]., [address] Potassium, pl 4.4 3.3 - 4.9 mmol/L [facility] Comment:Testing performed by : [address] [address] Chloride 103 97 - 110 mmol/L [facility] Comment:Testing performed by : [address], [place]., [address] CO2 24 22 - 32 mmol/L [facility] Comment:Testing performed by : [address] [address] Anion gap 10 2 - 15 mmol/L [facility] Comment:Testing performed by : [address] [address] BUN 88(H) 6 - 25 mg/dL [facility] Comment:Testing performed by : [address] [address] Creatinine 2.70(H) 0.60 - 1.10 mg/dL [facility] Comment:Testing performed by : [address] [address] Glucose 70 70 - 199 mg/dL [facility] Comment: Interpretive Data Fasting glucose >/= [...] was last revised 2022. Testing performed by: [address] [address] Calcium 6.9(L) 8.5 - 10.3 mg/dL [facility] Comment:Testing performed by : [address] [address] Bilirubin, total 0.3 0.1 - 1.2 mg/dL [facility] Comment:Testing performed by : [address] [address] Protein, pl 5.7(L) 6.5 - 8.5 g/dL [facility] Comment:Testing performed by : [address] [address] Albumin 3.0(L) 3.5 - 5.0 g/dL [facility] Comment:Testing performed by : [address] [address] Alk phos 41 40 - 130 Units/L [facility] Comment:Testing performed by : [address] [address] ALT 11 7 - 45 Units/L [facility] Comment:Testing performed by : [address] [address] AST 22 10 - 45 Units/L [facility] Comment:Testing performed by : [address] [address] Blood 01/10/2025 5:05 AM RADIOACTIVITY TECHNICIAN 01/10/2025 5:50 AM RADIOACTIVITY TECHNICIAN us Rica Khan HYDRAULIC RIVETER LAB BLOOD ORDERABLES Final Res ult [facility] [address] [facility] Department [place] [address] * (ABNORMAL) eGFR (01/09/2025 5:17 AM RADIOACTIVITY TECHNICIAN) eGFR 18(L) >=60 mL/min/1. 73 m2 Comment: [...] was last reviewed 2021. Testing performed by: [address] [address] Blood 01/09/2025 5:17 AM RADIOACTIVITY TECHNICIAN 01/09/2025 5:57 AM RADIOACTIVITY TECHNICIAN us Rica Khan HYDRAULIC RIVETER LAB BLOOD ORDERABLES Final Res [facility] [address] [facility] Department [place] [address] * (ABNORMAL) CBC without differential (01/09/2025 5:17 AM RADIOACTIVITY TECHNICIAN) WBC 3.4(L) 3.8 - 9.9 K/cumm Comment:Testing performed by : [address] [address] Hgb 8.0(L) 11.9 - 15.5 g/dL [facility] Comment:Testing performed by : [address] [address] Hct 26.1(L) 35.6 - 45.5 % [facility] Comment:Testing performed by : [address] [address] Plt 121(L) 150 - 400 K/cumm [facility] Comment:Testing performed by : [address] [address] MPV 9.3 9.1 - 12.3 fL [facility] Comment:Testing performed by : [address] [address] RBC 2.72(L) 3.90 - 5.20 M/cumm [facility] Comment:Testing performed by : [address] [address] MCV 96.0 81.3 - 96.4 fL [facility] Comment:Testing performed by : [address] [address] MCH 29.4 27.1 - 33.3 pg [facility] LOYA Comment:Testing performed by : [facility] [address] [place] [address]., [address] MCHC 30.7(L) 32.3 - 35.7 g/dL [facility] LOYA Comment:Testing performed by : [facility] [address] [place] [address]., [address] RDW CV 16.3(H) 11.1 - 14.9 % [facility] LOYA Comment:Testing performed by : [address] [address] RDW SD 55.8(H) 35.7 - 48.1 fL [facility]YA Comment:Testing performed by : [address] [address] NRBC abs 0.02(H) 0.00 - 0.01 K/cumm [facility] LOYA Comment:Testing performed by : [address] [address] Blood 01/09/2025 5:17 AM RADIOACTIVITY TECHNICIAN 01/09/2025 5:58 AM RADIOACTIVITY TECHNICIAN us Joseph Dowd MD LAB BLOOD ORDERABLES F inal Result [facility] [address] [facility] Department of Laboratories [place], [place] [id number] * (ABNORMAL) Comprehensive metabolic panel (01/09/2025 5:17 AM RADIOACTIVITY TECHNICIAN) Sodium 136 135 - 145 mmol/L Comment:Testing performed by : [address] [address] Potassium, pl 4.5 3.3 - 4.9 mmol/L [facility] LOYA Comment:Testing performed by : [address] [address] Chloride 102 97 - 110 mmol/L [facility] Comment:Testing performed by : [address] [address] CO2 22 22 - 32 mmol/L [facility] Comment:Testing performed by : [address] [address] Anion gap 12 2 - 15 mmol/L [facility] Comment:Testing performed by : [address] [address] BUN 88(H) 6 - 25 mg/dL [facility] Comment:Testing performed by : [address] [address] Creatinine 2.70(H) 0.60 - 1.10 mg/dL [facility] Comment:Testing performed by : [address] [address] Glucose 71 70 - 199 mg/dL [facility] Comment: Interpretive Data Fasting glucose >/= [...] was last revised 2022. Testing performed by: [address] [address] Calcium 6.9(L) 8.5 - 10.3 mg/dL [facility] Comment:Testing performed by : [address] [address] Bilirubin, total 0.3 0.1 - 1.2 mg/dL [facility] Comment:Testing performed by : [address] [address] Protein, pl 5.7(L) 6.5 - 8.5 g/dL [facility] Comment:Testing performed by : [address] [address] Albumin 2.9(L) 3.5 - 5.0 g/dL [facility] Comment:Testing performed by : [address] [address] Alk phos 38(L) 40 - 130 Units/L [facility] Comment:Testing performed by : [address] [address] ALT 10 7 - 45 Units/L [facility] LOYA Comment:Testing performed by : [address] [address] AST 20 10 - 45 Units/L [facility] Comment:Testing performed by : [address] [address] Blood 01/09/2025 5:17 AM RADIOACTIVITY TECHNICIAN 01/09/2025 5:57 AM RADIOACTIVITY TECHNICIAN us Rica Khan HYDRAULIC RIVETER LAB BLOOD ORDERABLES Final Res ult Performing Organization Address [facility] Co de Phone Number [facility] [address] [facility] Department [place] [address] * (ABNORMAL) eGFR (01/08/2025 5:25 AM RADIOACTIVITY TECHNICIAN) eGFR 16(L) >=60 mL/min/1. 73 m2 Comment: [...] was last reviewed 2021. Testing performed by: [address] [address] Blood 01/08/2025 5:25 AM RADIOACTIVITY TECHNICIAN 01/08/2025 6:10 AM RADIOACTIVITY TECHNICIAN Rica Khan HYDRAULIC RIVETER LAB BLOOD ORDERABLES Final Res ult Performing Organization Address City/[facility]/ZIP Co de Phone Number [facility] [address] [facility] Department [place] [address] * (ABNORMAL) CBC without differential (01/08/2025 5:25 AM RADIOACTIVITY TECHNICIAN) WBC 3.4(L) 3.8 - 9.9 K/cumm Comment:Testing performed by : [address] [address] Hgb 7.8(L) 11.9 - 15.5 g/dL [facility] Comment:Testing performed by : [address] [address] Hct 25.3(L) 35.6 - 45.5 % [facility] Comment:Testing performed by : [address] [address] Plt 109(L) 150 - 400 K/cumm [facility] Comment:Testing performed by : [address] [address] MPV 9.0(L) 9.1 - 12.3 fL [facility] Comment:Testing performed by : [address] [address] RBC 2.65(L) 3.90 - 5.20 M/cumm [facility] Comment:Testing performed by : [address] [address] MCV 95.5 81.3 - 96.4 fL [facility] Comment:Testing performed by : [address] [address] MCH 29.4 27.1 - 33.3 pg [facility] Comment:Testing performed by : [address] [address] MCHC 30.8(L) 32.3 - 35.7 g/dL [facility] Comment:Testing performed by : [address] [address] RDW CV 16.1(H) 11.1 - 14.9 % [facility] Comment:Testing performed by : [address], [address] RDW SD 55.7(H) 35.7 - 48.1 fL [facility] Comment:Testing performed by : [address] [address] NRBC abs 0.00 0.00 - 0.01 K/cumm [facility] LOYA Comment:Testing performed by : [address] [address] Blood 01/08/2025 5:25 AM RADIOACTIVITY TECHNICIAN 01/08/2025 6:11 AM RADIOACTIVITY TECHNICIAN us Joseph Dowd MD LAB BLOOD ORDERABLES F inal Result [facility] [address] [facility] Department [place] [address] * (ABNORMAL) Comprehensive metabolic panel (01/08/2025 5:25 AM RADIOACTIVITY TECHNICIAN) Sodium 135 135 - 145 mmol/L Comment:Testing performed by : [address] [address] Potassium, pl 4.6 3.3 - 4.9 mmol/L [facility] Comment:Testing performed by : [address] [address] Chloride 101 97 - 110 mmol/L [facility] Comment:Testing performed by : [address] [address] CO2 23 22 - 32 mmol/L [facility] Comment:Testing performed by : [address] [address] Anion gap 11 2 - 15 mmol/L [facility] Comment:Testing performed by : [address] [address] BUN 91(H) 6 - 25 mg/dL [facility] Comment:Testing performed by : [address] [address] Creatinine 2.90(H) 0.60 - 1.10 mg/dL [facility] Comment:Testing performed by : [address] [address] Glucose 70 70 - 199 mg/dL [facility] [...] was last revised 2022. Testing performed by: [address] [address] Calcium 6.8(L) 8.5 - 10.3 mg/dL [facility] Comment:Testing performed by : [address] [address] Bilirubin, total 0.3 0.1 - 1.2 mg/dL [facility] Comment:Testing performed by : [address] [address] Protein, pl 5.6(L) 6.5 - 8.5 g/dL [facility] Comment:Testing performed by : [address] [address] Albumin 3.0(L) 3.5 - 5.0 g/dL [facility] Comment:Testing performed by : [address] [address] Alk phos 41 40 - 130 Units/L [facility] Comment:Testing performed by : [address] [address] ALT 10 7 - 45 Units/L [facility] Comment:Testing performed by : [address] [address] AST 18 10 - 45 Units/L [facility] Comment:Testing performed by : [address] [address] Blood 01/08/2025 5:25 AM RADIOACTIVITY TECHNICIAN 01/08/2025 6:10 AM RADIOACTIVITY TECHNICIAN us Rica Khan HYDRAULIC RIVETER LAB BLOOD ORDERABLES Final Res ult Performing Organization Address [facility] de Phone Number [facility] Department [place] [address] * (ABNORMAL) eGFR (01/07/2025 5:16 AM RADIOACTIVITY TECHNICIAN) eGFR 16(L) >=60 mL/min/1. 73 m2 Comment: [...] was last reviewed 2021. Testing performed by: [address] [address] Blood 01/07/2025 5:16 AM RADIOACTIVITY TECHNICIAN 01/07/2025 6:12 AM RADIOACTIVITY TECHNICIAN Rica Khan HYDRAULIC RIVETER LAB BLOOD ORDERABLES Final Res ult Performing Organization Address [facility] de Phone Number [facility] [address] [facility] Department [place] [address] * (ABNORMAL) CBC without differential (01/07/2025 5:16 AM RADIOACTIVITY TECHNICIAN) [facility] WBC 3.8 3.8 - 9.9 K/cumm Comment:Testing performed by : [address] [address] Hgb 8.6(L) 11.9 - 15.5 g/dL [facility] Comment:Testing performed by : [address], [address] Hct 27.4(L) 35.6 - 45.5 % [facility] Comment:Testing performed by : [address] [address] Plt 114(L) 150 - 400 K/cumm [facility] Comment:Testing performed by : [address] [address] MPV 9.1 9.1 - 12.3 fL [facility] Comment:Testing performed by : [address], [address] RBC 2.88(L) 3.90 - 5.20 M/cumm [facility] Comment:Testing performed by : [address], [address] MCV 95.1 81.3 - 96.4 fL [facility] Comment:Testing performed by : [address], [address] MCH 29.9 27.1 - 33.3 pg [facility] Comment:Testing performed by : [address] [address] MCHC 31.4(L) 32.3 - 35.7 g/dL [facility] Comment:Testing performed by : [address], [address] RDW CV 15.9(H) 11.1 - 14.9 % [facility] Comment:Testing performed by : [address], [address] RDW SD 54.7(H) 35.7 - 48.1 fL [facility] Comment:Testing performed by : [address] [address] NRBC abs 0.00 0.00 - 0.01 K/cumm [facility] Comment:Testing performed by : [address], [address] Blood 01/07/2025 5:16 AM RADIOACTIVITY TECHNICIAN 01/07/2025 6:12 AM RADIOACTIVITY TECHNICIAN us Joseph Dowd MD LAB BLOOD ORDERABLES F [facility]al Result [facility] [address] [facility] [place] [address] * (ABNORMAL) Comprehensive metabolic panel (01/07/2025 5:16 AM RADIOACTIVITY TECHNICIAN) Sodium 134(L) 135 - 145 mmol/L Comment:Testing performed by : [address] [address] Potassium, pl 4.5 3.3 - 4.9 mmol/L [facility] Comment:Testing performed by : [address] [address] Chloride 100 97 - 110 mmol/L [facility] Comment:Testing performed by : [address] [address] CO2 22 22 - 32 mmol/L [facility] Comment:Testing performed by : [address] [address] Anion gap 12 2 - 15 mmol/L [facility] Comment:Testing performed by : [address] [address] BUN 92(H) 6 - 25 mg/dL [facility] Comment:Testing performed by : [address] [address] Creatinine 2.90(H) 0.60 - 1.10 mg/dL [facility] Comment:Testing performed by : [address] [address] Glucose 73 70 - 199 mg/dL [facility] [...] was last revised 2022. Testing performed by: [address] [address] Calcium 7.0(L) 8.5 - 10.3 mg/dL [facility] Comment:Testing performed by : [address] [address] Bilirubin, total 0.3 0.1 - 1.2 mg/dL [facility] Comment:Testing performed by : [address] [address] Protein, pl 6.0(L) 6.5 - 8.5 g/dL [facility] Comment:Testing performed by : [address], [place]., [address] Albumin 3.1(L) 3.5 - 5.0 g/dL [facility] Comment:Testing performed by : [address] [address] Alk phos 45 40 - 130 Units/L [facility] Comment:Testing performed by : [address] [address] ALT 12 7 - 45 Units/L [facility] Comment:Testing performed by : [address] [address] AST 21 10 - 45 Units/L [facility] Comment:Testing performed by : [address] [address] Blood 01/07/2025 5:16 AM RADIOACTIVITY TECHNICIAN 01/07/2025 6:12 AM RADIOACTIVITY TECHNICIAN us Rica Khan HYDRAULIC RIVETER LAB BLOOD ORDERABLES Final Res ult [facility] [address] [facility] Department [place] [address] * (ABNORMAL) Hemoglobin and hematocrit (01/06/2025 9:07 PM RADIOACTIVITY TECHNICIAN) [facility] Hgb 8.7(L) 11.9 - 15.5 g/dL Comment:Testing performed by : [address] [address] Hct 28.0(L) 35.6 - 45.5 % [facility] Comment:Testing performed by : [address] [address] Blood 01/06/2025 9:07 PM RADIOACTIVITY TECHNICIAN 01/06/2025 9:15 PM RADIOACTIVITY TECHNICIAN Joseph Dowd MD LAB BLOOD ORDERABLES F inal Result Performing Organization Address [facility] de Phone Number ABEBE [address] [place] [address] * (ABNORMAL) aPTT (01/06/2025 9:07 PM RADIOACTIVITY TECHNICIAN) aPTT 41(H) 22 - 37 sec Comment: Ref Range High Interpretive data aPTT test has not been evaluated for monitoring heparin therapy. The anti-Xa is the preferred test. Current interpretive data was last revised on 2019. Testing performed by: [address] [address] Blood 01/06/2025 9:07 PM RADIOACTIVITY TECHNICIAN 01/06/2025 9:15 PM RADIOACTIVITY TECHNICIAN Joseph Dowd MD LAB BLOOD ORDERABLES F inal Result Performing Organization Address [facility] de Phone Number [id number] [address] * Protime-INR (01/06/2025 9:07 PM RADIOACTIVITY TECHNICIAN) PT 14.0 12.0 - 14.6 sec Comment:Testing performed by : [address] [address] INR 1.1 0.9 - 1.2 ABEBE LOYA Comment: Ref Range High Interpretive data Oral anticoagulant therapeutic ranges: Venous thromboembolism prophylaxis or treatment: 2.0-3.0 CARDIOLOGY Standard range: 2.0-3.0 High-intensity range: 2.5-3.5 Refer to indication-specific guidelines for appropriate target ranges for prosthetic heart valve replacement. Current interpretive data was last revised on 2019. Testing performed by: [address] [address] Blood 01/06/2025 9:07 PM RADIOACTIVITY TECHNICIAN 01/06/2025 9:15 PM RADIOACTIVITY TECHNICIAN us Joseph Dowd MD LAB BLOOD ORDERABLES F inal Result Performing Organization Address [facility] Co de Phone Number ABEBE [address] [place] [address] * (ABNORMAL) eGFR (01/06/2025 8:12 AM RADIOACTIVITY TECHNICIAN) eGFR 15(L) >=60 mL/min/1. 73 m2 Comment: [...] was last reviewed 2021. Testing performed by: [facility], [address] [place] [address]., [address] Blood 01/06/2025 8:12 AM RADIOACTIVITY TECHNICIAN 01/06/2025 10:20 AM RADIOACTIVITY TECHNICIAN us Rica Khan HYDRAULIC RIVETER LAB BLOOD ORDERABLES Final Res ult Performing Organization Address City/[facility]/ZIP Co de Phone Number ABEBE [address] [place] [employer] [address] * (ABNORMAL) CBC without differential (01/06/2025 8:12 AM RADIOACTIVITY TECHNICIAN) [facility] WBC 4.1 3.8 - 9.9 K/cumm Comment:Testing performed by : [address] [address] Hgb 8.3(L) 11.9 - 15.5 g/dL ABEBE Comment:Testing performed by : [address] [address] Hct 26.6(L) 35.6 - 45.5 % ABEBE Comment:Testing performed by : [address], [address] Plt 116(L) 150 - 400 K/cumm ABEBE Comment:Testing performed by : [address], [address] MPV 10.3 9.1 - 12.3 fL ABEBE Comment:Testing performed by : [address], [address] RBC 2.82(L) 3.90 - 5.20 M/cumm ABEBE Comment:Testing performed by : [address], [address] MCV 94.3 81.3 - 96.4 fL ABEBE Comment:Testing performed by : [address], [address] MCH 29.4 27.1 - 33.3 pg ABEBE Comment:Testing performed by : [address], [address] MCHC 31.2(L) 32.3 - 35.7 g/dL ABEBE Comment:Testing performed by : [address], [address] RDW CV 15.8(H) 11.1 - 14.9 % ABEBE Comment:Testing performed by : [address], [address] RDW SD 54.0(H) 35.7 - 48.1 fL ABEBE Comment:Testing performed by : [address], [address] NRBC abs 0.00 0.00 - 0.01 K/cumm ABEBE Comment:Testing performed by : [address] [address] Blood 01/06/2025 8:12 AM RADIOACTIVITY TECHNICIAN 01/06/2025 10:20 AM RADIOACTIVITY TECHNICIAN us Joseph Dowd MD LAB BLOOD ORDERABLES F inal Result ABEBE [address] [facility] [place] [address] * (ABNORMAL) Comprehensive metabolic panel (01/06/2025 8:12 AM RADIOACTIVITY TECHNICIAN) Sodium 135 135 - 145 mmol/L Comment:Testing performed by : [address] [address] Potassium, pl 4.5 3.3 - 4.9 mmol/L ABEBE Comment:Testing performed by : [address] [address] Chloride 100 97 - 110 mmol/L ABEBE Comment:Testing performed by : [address] [address] CO2 21(L) 22 - 32 mmol/L ABEBE Comment:Testing performed by : [address] [address] Anion gap 14 2 - 15 mmol/L ABEBE Comment:Testing performed by : [address] [address] BUN 94(H) 6 - 25 mg/dL ABEBE Comment:Testing performed by : [address] [address] Creatinine 3.20(H) 0.60 - 1.10 mg/dL ABEBE Comment:Testing performed by : [address] [address] Glucose 69(L) 70 - 199 mg/dL ABEBE [...] was last revised 2022. Testing performed by: [facility], [address] [place] [address]., [address] Calcium 7.0(L) 8.5 - 10.3 mg/dL ABEBE Comment:Testing performed by : [address] [address] Bilirubin, total 0.3 0.1 - 1.2 mg/dL [facility] Comment:Testing performed by : [address] [address] Protein, pl 5.9(L) 6.5 - 8.5 g/dL [facility] Comment:Testing performed by : [address] [address] Albumin 3.0(L) 3.5 - 5.0 g/dL [facility] Comment:Testing performed by : [address] [address] Alk phos 45 40 - 130 Units/L [facility] Comment:Testing performed by : [address] [address] ALT 12 7 - 45 Units/L ABEBE Comment:Testing performed by : [address] [address] AST 22 10 - 45 Units/L [facility] Comment:Testing performed by : [address] [address] Blood 01/06/2025 8:12 AM RADIOACTIVITY TECHNICIAN 01/06/2025 10:20 AM RADIOACTIVITY TECHNICIAN us Rica Khan HYDRAULIC RIVETER LAB BLOOD ORDERABLES Final Res ult ABEBE [address] [facility] [place] [address] * (ABNORMAL) eGFR (01/05/2025 7:35 AM RADIOACTIVITY TECHNICIAN) eGFR 15(L) >=60 mL/min/1. 73 m2 Comment: [...] was last reviewed 2021. Testing performed by: [address] [address] Blood 01/05/2025 7:35 AM RADIOACTIVITY TECHNICIAN 01/05/2025 7:57 AM RADIOACTIVITY TECHNICIAN us Rica Khan HYDRAULIC RIVETER LAB BLOOD ORDERABLES Final Res ult ABEBE [address] [facility] Department [place] [address] * (ABNORMAL) Comprehensive metabolic panel (01/05/2025 7:35 AM RADIOACTIVITY TECHNICIAN) Sodium 132(L) 135 - 145 mmol/L Comment:Testing performed by : [address] [address] Potassium, pl 4.9 3.3 - 4.9 mmol/L ABEBE LOYA Comment:Testing performed by : [address] [address] Chloride 99 97 - 110 mmol/L ABEBE LOYA Comment:Testing performed by : [address] [address] CO2 20(L) 22 - 32 mmol/L ABEBE Comment:Testing performed by : [address] [address] Anion gap 13 2 - 15 mmol/L ABEBE Comment:Testing performed by : [address] [address] BUN 97(H) 6 - 25 mg/dL [facility] Comment:Testing performed by : [address] [address] Creatinine 3.10(H) 0.60 - 1.10 mg/dL [facility] Comment:Testing performed by : [address] [address] Glucose 72 70 - 199 mg/dL [facility] Comment: Interpretive Data Fasting glucose >/= [...] was last revised 2022. Testing performed by: [address] [address] Calcium 6.7(L) 8.5 - 10.3 mg/dL [facility] Comment:Testing performed by : [address] [address] Bilirubin, total 0.2 0.1 - 1.2 mg/dL [facility] Comment:Testing performed by : [address] [address] Protein, pl 5.5(L) 6.5 - 8.5 g/dL [facility] [place] Comment:Testing performed by : [address] [address] Albumin 2.9(L) 3.5 - 5.0 g/dL [facility] [place] Comment:Testing performed by : [address] [address] Alk phos 44 40 - 130 Units/L ABEBE LOYA Comment:Testing performed by : [address] [address] ALT 10 7 - 45 Units/L ABEBE LOYA Comment:Testing performed by : [address] [address] AST 21 10 - 45 Units/L ABEBE LOYA Comment:Testing performed by : [address] [address] Blood 01/05/2025 7:35 AM RADIOACTIVITY TECHNICIAN 01/05/2025 7:57 AM RADIOACTIVITY TECHNICIAN us Rica Khan HYDRAULIC RIVETER LAB BLOOD ORDERABLES Final Res ult ABEBE [address] [facility] [place] [address] * (ABNORMAL) eGFR (01/04/2025 7:31 AM RADIOACTIVITY TECHNICIAN) eGFR 16(L) >=60 mL/min/1. 73 m2 Comment: [...] was last reviewed 2021. Testing performed by: [address] [address] Blood 01/04/2025 7:31 AM RADIOACTIVITY TECHNICIAN 01/04/2025 7:59 AM RADIOACTIVITY TECHNICIAN us Rica Khan HYDRAULIC RIVETER LAB BLOOD ORDERABLES Final Res ult ABEBE [address] [facility] [place] [address] * Differential, auto (01/04/2025 7:31 AM RADIOACTIVITY TECHNICIAN) Neutrophil abs 1.5 1.5 - 6.5 K/cumm Comment:Testing performed by : [address] [address] Imm gran abs 0.0 0.0 - 0.1 K/cumm ABEBE Comment:Testing performed by : [address] [address] Lymphocyte abs 1.7 0.8 - 3.3 K/cumm ABEBE Comment:Testing performed by : [address] [address] Monocyte abs 0.5 0.2 - 0.8 K/cumm ABEBE Comment:Testing performed by : [address] [address] Eosinophil abs 0.1 0.0 - 0.5 K/cumm ABEBE Comment:Testing performed by : [address] [address] Basophil abs 0.0 0.0 - 0.1 K/cumm ABEBE Comment:Testing performed by : [address] [address] Neutrophil pct 38.5 % ABEBE Comment: Interpretive Data Percent cell count reference ranges are not reported, since discordance with absolute values may lead to misinterpretation of CBC data. Current Interpretive Data was last revised on 2018. Testing performed by: [address] [address] Imm gran pct 0.5 % ABEBE Comment: Interpretive Data Percent cell count reference ranges are not reported, since discordance with absolute values may lead to misinterpretation of CBC data. Current Interpretive Data was last revised on 2018. Testing performed by: [address] [address] Lymphocyte pct 45.5 % ABEBE Comment: Interpretive Data Percent cell count reference ranges are not reported, since discordance with absolute values may lead to misinterpretation of CBC data. Current Interpretive Data was last revised on 2018. Testing performed by: [address] [address] Monocyte pct 11.8 % ABEBE Comment: Interpretive Data Percent cell count reference ranges are not reported, since discordance with absolute values may lead to misinterpretation of CBC data. Current Interpretive Data was last revised on 2018. Testing performed by: [address] [address] Eosinophil pct 3.4 % ABEBE Comment: Interpretive Data Percent cell count reference ranges are not reported, since discordance with absolute values may lead to misinterpretation of CBC data. Current Interpretive Data was last revised on 2018. Testing performed by: [address] [address] Basophil pct 0.3 % ABEBE Comment: Interpretive Data Percent cell count reference ranges are not reported, since discordance with absolute values may lead to misinterpretation of CBC data. Current Interpretive Data was last revised on 2018. Testing performed by: [address] [address] Blood 01/04/2025 7:31 AM RADIOACTIVITY TECHNICIAN 01/04/2025 7:59 AM RADIOACTIVITY TECHNICIAN us Farooq Arceo MD LAB BLOOD ORDERABLES Final Result ABEBE [address] [facility] Department of Laboratories [place], [place] [id number] * (ABNORMAL) CBC with auto differential (01/04/2025 7:31 AM RADIOACTIVITY TECHNICIAN) WBC 3.8 3.8 - 9.9 K/cumm Comment:Testing performed by : [address] [address] Hgb 8.1(L) 11.9 - 15.5 g/dL ABEBE Comment:Testing performed by : [address] [address] Hct 25.7(L) 35.6 - 45.5 % ABEBE Comment:Testing performed by : [address] [address] Plt 108(L) 150 - 400 K/cumm ABEBE Comment:Testing performed by : [address] [address] MPV 9.8 9.1 - 12.3 fL ABEBE Comment:Testing performed by : [address], [address] RBC 2.77(L) 3.90 - 5.20 M/cumm ABEBE Comment:Testing performed by : [address], [address] MCV 92.8 81.3 - 96.4 fL ABEBE Comment:Testing performed by : [address], [address] MCH 29.2 27.1 - 33.3 pg ABEBE Comment:Testing performed by : [address], [address] MCHC 31.5(L) 32.3 - 35.7 g/dL ABEBE Comment:Testing performed by : [address] [address] RDW CV 15.1(H) 11.1 - 14.9 % ABEBE Comment:Testing performed by : [address], [address] RDW SD 51.4(H) 35.7 - 48.1 fL ABEBE Comment:Testing performed by : [address], [address] NRBC abs 0.00 0.00 - 0.01 K/cumm ABEBE Comment:Testing performed by : [address], [address] Blood 01/04/2025 7:31 AM RADIOACTIVITY TECHNICIAN 01/04/2025 7:59 AM RADIOACTIVITY TECHNICIAN us Farooq Maywood Altwal MD LAB BLOOD ORDERABLES Final Result ABEBE [address] [facility] Department [place] [address] * (ABNORMAL) Comprehensive metabolic panel (01/04/2025 7:31 AM RADIOACTIVITY TECHNICIAN) Sodium 131(L) 135 - 145 mmol/L Comment:Testing performed by : [address] [address] Potassium, pl 4.4 3.3 - 4.9 mmol/L ABEBE Comment:Testing performed by : [address] [address] Chloride 98 97 - 110 mmol/L ABEBE Comment:Testing performed by : [address] [address] CO2 20(L) 22 - 32 mmol/L ABEBE Comment:Testing performed by : [address] [address] Anion gap 13 2 - 15 mmol/L ABEBE Comment:Testing performed by : [address] [address] BUN 92(H) 6 - 25 mg/dL ABEBE Comment:Testing performed by : [address] [address] Creatinine 2.90(H) 0.60 - 1.10 mg/dL ABEBE Comment:Testing performed by : [address] [address] Glucose 61(L) 70 - 199 mg/dL ABEBE [...] was last revised 2022. Testing performed by: [address] [address] Calcium 6.8(L) 8.5 - 10.3 mg/dL ABEBE Comment:Testing performed by : [address] [address] Bilirubin, total 0.2 0.1 - 1.2 mg/dL ABEBE Comment:Testing performed by : [address] [address] Protein, pl 5.6(L) 6.5 - 8.5 g/dL ABEBE Comment:Testing performed by : [address] [address] Albumin 2.8(L) 3.5 - 5.0 g/dL ABEBE Comment:Testing performed by : [address] [address] Alk phos 41 40 - 130 Units/L ABEBE Comment:Testing performed by : [address] [address] ALT 10 7 - 45 Units/L ABEBE Comment:Testing performed by : [address] [address] AST 19 10 - 45 Units/L ABEBE Comment:Testing performed by : [address] [address] Blood 01/04/2025 7:31 AM RADIOACTIVITY TECHNICIAN 01/04/2025 7:59 AM RADIOACTIVITY TECHNICIAN us Rica Khan HYDRAULIC RIVETER LAB BLOOD ORDERABLES Final Res ult ABEBE [address] [facility] Department [place] [address] * (ABNORMAL) eGFR (01/03/2025 4:59 AM RADIOACTIVITY TECHNICIAN) eGFR 17(L) >=60 mL/min/1. 73 m2 Comment: [...] was last reviewed 2021. Testing performed by: [address] [address] Blood 01/03/2025 4:59 AM RADIOACTIVITY TECHNICIAN 01/03/2025 5:51 AM RADIOACTIVITY TECHNICIAN Rica Khan HYDRAULIC RIVETER LAB BLOOD ORDERABLES Final Res ult ABEBE [address] [facility] Department of Laboratories [place], [place] [id number] * (ABNORMAL) Comprehensive metabolic panel (01/03/2025 4:59 AM RADIOACTIVITY TECHNICIAN) Sodium 129(L) 135 - 145 mmol/L Comment:Testing performed by : [address] [address] Potassium, pl 4.5 3.3 - 4.9 mmol/L ABEBE Comment:Testing performed by : [address] [address] Chloride 95(L) 97 - 110 mmol/L ABEBE Comment:Testing performed by : [address] [address] CO2 22 22 - 32 mmol/L ABEBE Comment:Testing performed by : [address] [address] Anion gap 12 2 - 15 mmol/L ABEBE Comment:Testing performed by : [address] [address] BUN 91(H) 6 - 25 mg/dL [facility] Comment:Testing performed by : [address] [address] Creatinine 2.80(H) 0.60 - 1.10 mg/dL [facility] Comment:Testing performed by : [address] [address] Glucose 70 70 - 199 mg/dL [facility] Comment: Interpretive Data Fasting glucose >/= [...] was last revised 2022. Testing performed by: [address] [address] Calcium 7.0(L) 8.5 - 10.3 mg/dL [facility] Comment:Testing performed by : [address] [address] Bilirubin, total 0.2 0.1 - 1.2 mg/dL [facility] Comment:Testing performed by : [address] [address] Protein, pl 5.9(L) 6.5 - 8.5 g/dL [facility] Comment:Testing performed by : [address] [address] Albumin 3.1(L) 3.5 - 5.0 g/dL [facility] Comment:Testing performed by : [address] [address] Alk phos 43 40 - 130 Units/L [facility] Comment:Testing performed by : [address] [address] ALT 9 7 - 45 Units/L [facility] Comment:Testing performed by : [address] [address] AST 20 10 - 45 Units/L ABEBE Comment:Testing performed by : [facility], [address] [place] [address]., [address] Blood 01/03/2025 4:59 AM RADIOACTIVITY TECHNICIAN 01/03/2025 5:51 AM RADIOACTIVITY TECHNICIAN Rica Khan HYDRAULIC RIVETER LAB BLOOD ORDERABLES Final Res ult Performing Organization Address [facility] Co de Phone Number NINA[address] [place] [address] * (ABNORMAL) eGFR (01/02/2025 5:19 AM RADIOACTIVITY TECHNICIAN) eGFR 16(L) >=60 mL/min/1. 73 m2 Comment: [...] was last reviewed 2021. Testing performed by: [facility], [address] [place] [address]., [address] Blood 01/02/2025 5:19 AM RADIOACTIVITY TECHNICIAN 01/02/2025 5:43 AM RADIOACTIVITY TECHNICIAN Rica Khan HYDRAULIC RIVETER LAB BLOOD ORDERABLES Final Res ult Performing Organization Address City/[facility]/ZIP Co de Phone Number [place] [id number] [facility] [place] [address] * Differential, auto (01/02/2025 5:19 AM RADIOACTIVITY TECHNICIAN) Neutrophil abs 1.9 1.5 - 6.5 K/cumm Comment:Testing performed by : [address] [address] Imm gran abs 0.0 0.0 - 0.1 K/cumm [facility] [place] Comment:Testing performed by : [address] [address] Lymphocyte abs 2.0 0.8 - 3.3 K/cumm [facility] [place] Comment:Testing performed by : [address] [address] Monocyte abs 0.6 0.2 - 0.8 K/cumm [facility] [place] Comment:Testing performed by : [address] [address] Eosinophil abs 0.3 0.0 - 0.5 K/cumm [facility] Comment:Testing performed by : [address] [address] Basophil abs 0.0 0.0 - 0.1 K/cumm [facility] Comment:Testing performed by : [address] [address] Neutrophil pct 38.7 % [facility] [place] Comment: Interpretive Data Percent cell count reference ranges are not reported, since discordance with absolute values may lead to misinterpretation of CBC data. Current Interpretive Data was last revised on 2018. Testing performed by: [address] [address] Imm gran pct 0.8 % [facility] [place] Comment: Interpretive Data Percent cell count reference ranges are not reported, since discordance with absolute values may lead to misinterpretation of CBC data. Current Interpretive Data was last revised on 2018. Testing performed by: [address] [address] Lymphocyte pct 42.1 % [facility] Comment: Interpretive Data Percent cell count reference ranges are not reported, since discordance with absolute values may lead to misinterpretation of CBC data. Current Interpretive Data was last revised on 2018. Testing performed by: [address] [place] [address] Monocyte pct 12.8 % [facility] [place] Comment: Interpretive Data Percent cell count reference ranges are not reported, since discordance with absolute values may lead to misinterpretation of CBC data. Current Interpretive Data was last revised on 2018. Testing performed by: [address] [address] Eosinophil pct 5.2 % [facility] Comment: Interpretive Data Percent cell count reference ranges are not reported, since discordance with absolute values may lead to misinterpretation of CBC data. Current Interpretive Data was last revised on 2018. Testing performed by: [address] [address] Basophil pct 0.4 % ABEBE Comment: Interpretive Data Percent cell count reference ranges are not reported, since discordance with absolute values may lead to misinterpretation of CBC data. Current Interpretive Data was last revised on 2018. Testing performed by: [address] [address] Blood 01/02/2025 5:19 AM RADIOACTIVITY TECHNICIAN 01/02/2025 5:43 AM RADIOACTIVITY TECHNICIAN us Ken Saul MD LAB BLOOD ORDERABLES Final Re sult ABEBE LOYA [address] [facility] [place] [address] * (ABNORMAL) Pro B-type natriuretic peptide (01/02/2025 5:19 AM RADIOACTIVITY TECHNICIAN) NT-proBNP 14,171(H) <=450 pg/mL Comment: Interpretive Comments: [...] Last Revised Date: 2018. Testing performed by: [facility], [address] [place] [address]., [address] Blood 01/02/2025 5:19 AM RADIOACTIVITY TECHNICIAN 01/02/2025 5:43 AM RADIOACTIVITY TECHNICIAN us Marino Hernandez MD LAB BLOOD ORDERABLES Fi nal Result Performing Organization Address [facility] Co de Phone Number [address] [place] [address] * (ABNORMAL) Calcium, ionized (01/02/2025 5:19 AM RADIOACTIVITY TECHNICIAN) Pathologist [facility] Calcium, Ionized 3.70(L) 4.50 - 5.10 mg/dL Blood 01/02/2025 5:19 AM RADIOACTIVITY TECHNICIAN 01/02/2025 6:25 AM RADIOACTIVITY TECHNICIAN us Ken Saul MD LAB BLOOD ORDERABLES Final Re sult Performing Organization Address [facility]/ZIP Co de Phone Number [place] [phone] [facility] [place] [address] * (ABNORMAL) Iron profile w/ IBC (01/02/2025 5:19 AM RADIOACTIVITY TECHNICIAN) Pathologist [facility] Iron 26(L) 35 - 145 mcg/dL Comment:Testing performed by : [address] [address] TIBC 185(L) 250 - 400 mcg/dL ABEBE Comment:Testing performed by : [address] [address] Transferrin saturation 14(L) 20 - 50 % ABEBE Comment:Testing performed by : [address] [address] Blood 01/02/2025 5:19 AM RADIOACTIVITY TECHNICIAN 01/02/2025 5:43 AM RADIOACTIVITY TECHNICIAN us Ken Saul MD LAB BLOOD ORDERABLES Final Re sult ABEBE [facility] [place] [address] * (ABNORMAL) CBC with auto differential (01/02/2025 5:19 AM RADIOACTIVITY TECHNICIAN) [facility] WBC 4.8 3.8 - 9.9 K/cumm Comment:Testing performed by : [address] [address] Hgb 8.1(L) 11.9 - 15.5 g/dL ABEBE LOYA Comment:Testing performed by : [address] [address] Hct 25.4(L) 35.6 - 45.5 % ABEBE Comment:Testing performed by : [address] [address] Plt 117(L) 150 - 400 K/cumm ABEBE LOYA Comment:Testing performed by : [address] [address] MPV 9.3 9.1 - 12.3 fL ABEBE LOYA Comment:Testing performed by : [address] [address] RBC 2.77(L) 3.90 - 5.20 M/cumm ABEBE LOYA Comment:Testing performed by : [address] [address]886 MCV 91.7 81.3 - 96.4 fL ABEBE Comment:Testing performed by : [address], [address] MCH 29.2 27.1 - 33.3 pg ABEBE LOYA Comment:Testing performed by : [address] [address]293 MCHC 31.9(L) 32.3 - 35.7 g/dL ABEBE Comment:Testing performed by : [address], [address] RDW CV 14.6 11.1 - 14.9 % ABEBE Comment:Testing performed by : [address], [address] RDW SD 49.4(H) 35.7 - 48.1 fL ABEBE LOYA Comment:Testing performed by : [address], [address] NRBC abs 0.00 0.00 - 0.01 K/cumm ABEBE Comment:Testing performed by : [address], [address] Blood 01/02/2025 5:19 AM RADIOACTIVITY TECHNICIAN 01/02/2025 5:43 AM RADIOACTIVITY TECHNICIAN us Ken Saul MD LAB BLOOD ORDERABLES Final Re sult Performing Organization Address City/[facility]/ZIP Co de Phone Number [place] [phone] [facility] [place] [address] * (ABNORMAL) Phosphorus (01/02/2025 5:19 AM RADIOACTIVITY TECHNICIAN) Phosphorus, pl 5.3(H) 2.3 - 4.5 mg/dL Comment:Testing performed by : [address], [address] Blood 01/02/2025 5:19 AM RADIOACTIVITY TECHNICIAN 01/02/2025 5:43 AM RADIOACTIVITY TECHNICIAN Marino Hernandez MD LAB BLOOD ORDERABLES Fi nal Result ABEBE [address] [place] [address] * PTH (01/02/2025 5:19 AM RADIOACTIVITY TECHNICIAN) PTH 38 15 - 65 pg/mL Comment:Testing performed by : [address] [address] Blood 01/02/2025 5:19 AM RADIOACTIVITY TECHNICIAN 01/02/2025 5:43 AM RADIOACTIVITY TECHNICIAN Ken Saul MD LAB BLOOD ORDERABLES Final Re sult Performing Organization Address [facility] [place] Co de Phone Number [phone] [place] [address] * Magnesium (01/02/2025 5:19 AM RADIOACTIVITY TECHNICIAN) Pathologist [facility] Magnesium 2.0 1.4 - 2.5 mg/dL Comment:Testing performed by : [address] [address] Blood 01/02/2025 5:19 AM RADIOACTIVITY TECHNICIAN 01/02/2025 5:43 AM RADIOACTIVITY TECHNICIAN Marino Hernandez MD LAB BLOOD ORDERABLES Fi nal Result Performing Organization Address [facility] Co de Phone Number [address] [place] [address] * Vitamin B12 (01/02/2025 5:19 AM RADIOACTIVITY TECHNICIAN) Vitamin B12 405 230 - 1,250 pg/mL Comment:Testing performed by : [address] [address] Blood 01/02/2025 5:19 AM RADIOACTIVITY TECHNICIAN 01/02/2025 5:43 AM RADIOACTIVITY TECHNICIAN Ken Saul MD LAB BLOOD ORDERABLES Final Re sult Performing Organization Address City/[facility]/ZIP Co de Phone Number [address] [place] [address] * (ABNORMAL) Comprehensive metabolic panel (01/02/2025 5:19 AM RADIOACTIVITY TECHNICIAN) Sodium 128(L) 135 - 145 mmol/L Comment:Testing performed by : [address] [address] Potassium, pl 5.0(H) 3.3 - 4.9 mmol/L [facility]BE Comment:Testing performed by : [address] [address] Chloride 93(L) 97 - 110 mmol/L [facility]BE Comment:Testing performed by : [address] [address] CO2 21(L) 22 - 32 mmol/L A[facility]BE Comment:Testing performed by : [address] [address] Anion gap 14 2 - 15 mmol/L [facility] Comment:Testing performed by : [address] [address] BUN 91(H) 6 - 25 mg/dL [facility] [place] [facility] Comment:Testing performed by : [address] [address] Creatinine 2.90(H) 0.60 - 1.10 mg/dL A[facility]BE Comment:Testing performed by : [address] [address] Glucose 63(L) 70 - 199 mg/dL [facility] Comment: Interpretive Data Fasting glucose >/= [...] was last revised 2022. Testing performed by: [address] [address] Calcium 7.0(L) 8.5 - 10.3 mg/dL [facility]BE Comment:Testing performed by : [address] [address] Bilirubin, total 0.2 0.1 - 1.2 mg/dL [facility]BE Comment:Testing performed by : [address] [address] Protein, pl 5.8(L) 6.5 - 8.5 g/dL [facility] Comment:Testing performed by : [address] [address] Albumin 3.0(L) 3.5 - 5.0 g/dL [facility] Comment:Testing performed by : [address] [address] Alk phos 43 40 - 130 Units/L [facility]BE Comment:Testing performed by : [address] [address] ALT 10 7 - 45 Units/L A[facility]BE Comment:Testing performed by : [address] [address] AST 22 10 - 45 Units/L [facility]BE Comment:Testing performed by : [address] [address] Blood 01/02/2025 5:19 AM RADIOACTIVITY TECHNICIAN 01/02/2025 5:43 AM RADIOACTIVITY TECHNICIAN us Rica Khan HYDRAULIC RIVETER LAB BLOOD ORDERABLES Final Res ult [facility]BE [address] [facility] [place] [address] * (ABNORMAL) Pro B-type natriuretic peptide (01/01/2025 5:13 PM RADIOACTIVITY TECHNICIAN) NT-proBNP 12,450(H) <=450 pg/mL Comment: Interpretive Comments: [...] Last Revised Date: 2018. Testing performed by: [facility], [address] [place] [address]., [address] Blood 01/01/2025 5:13 PM RADIOACTIVITY TECHNICIAN 01/01/2025 5:35 PM RADIOACTIVITY TECHNICIAN us Marino Hernandez MD LAB BLOOD ORDERABLES Fi nal Result [facility] [address] [facility] [place] [address] * XR Chest PA Lateral 2 Views (01/01/2025 1:07 PM RADIOACTIVITY TECHNICIAN) Anatomical Region Laterality Modality Body, Chest N/A Computed Radiogr aphy 01/01/2025 3:10 PM RADIOACTIVITY TECHNICIAN Narrative 01/01/2025 3:12 PM RADIOACTIVITY TECHNICIAN EXAM DESCRIPTION: XR CHEST PA LATERAL 2 [...] Stacey Mo M.D. FT: FT Report ID: [id number] Reading Location: [id number] Procedure Note Stacey Negron MD - 01/01/2025 [...] Stacey Mo M.D. FT: FT Report ID: [id number] Reading Location: [id number] us Ken Saul MD IMG XR PROCEDURES Final Resul t * (ABNORMAL) Albumin Creatinine Ratio, Urine (01/01/2025 12:33 PM RADIOACTIVITY TECHNICIAN) Albumin Ur 86.3 mg/L Comment: Interpretive Data No reference range established. Current interpretive data was last revised 2019. Testing performed by: [facility], [address] [place]., [address] Creatinine Ur 58.3 mg/dL [facility]BE Comment: Interpretive Data No reference range established. Current interpretive data was last revised 2019. Testing performed by: [facility], [address] [place] [address]., [address] Albumin Creatinine Ratio, Ur 148(H) 1 - 29 mg/g [facility] Comment:Testing performed by : [address] [address] Urine 01/01/2025 12:3 3 PM RADIOACTIVITY TECHNICIAN 01/01/2025 3:50 PM RADIOACTIVITY TECHNICIAN us Ken Saul MD LAB URINE ORDERABLES Final Re sult [facility]BEBE LOYA [address] [facility] [place] [address] * (ABNORMAL) eGFR (01/01/2025 5:26 AM RADIOACTIVITY TECHNICIAN) eGFR 18(L) >=60 mL/min/1. 73 m2 Comment: [...] was last reviewed 2021. Testing performed by: [address] [address] Blood 01/01/2025 5:26 AM RADIOACTIVITY TECHNICIAN 01/01/2025 5:53 AM RADIOACTIVITY TECHNICIAN us Rica Khan HYDRAULIC RIVETER LAB BLOOD ORDERABLES Final Res ult [facility]BE [address] [facility] [place] [address] * (ABNORMAL) Comprehensive metabolic panel (01/01/2025 5:26 AM RADIOACTIVITY TECHNICIAN) Sodium 132(L) 135 - 145 mmol/L Comment:Testing performed by : [address] [address] Potassium, pl 4.7 3.3 - 4.9 mmol/L ABEBE Comment:Testing performed by : [address] [address] Chloride 96(L) 97 - 110 mmol/L [facility] Comment:Testing performed by : [address] [address] CO2 23 22 - 32 mmol/L [facility] Comment:Testing performed by : [address] [address] Anion gap 13 2 - 15 mmol/L [facility] Comment:Testing performed by : [address] [address] BUN 88(H) 6 - 25 mg/dL [facility] Comment:Testing performed by : [address] [address] Creatinine 2.70(H) 0.60 - 1.10 mg/dL [facility] Comment:Testing performed by : [address] [address] Glucose 74 70 - 199 mg/dL ABEBE [...] was last revised 2022. Testing performed by: [facility], [address] [place] [address]., [address] Calcium 7.2(L) 8.5 - 10.3 mg/dL [facility] Comment:Testing performed by : [address] [address] Bilirubin, total 0.2 0.1 - 1.2 mg/dL [facility] Comment:Testing performed by : [address] [address] Protein, pl 5.9(L) 6.5 - 8.5 g/dL [facility] Comment:Testing performed by : [address] [address] Albumin 3.0(L) 3.5 - 5.0 g/dL [facility]BE Comment:Testing performed by : [address], [address] Alk phos 40 40 - 130 Units/L [facility]BE Comment:Testing performed by : [address] [address] ALT 9 7 - 45 Units/L [facility] Comment:Testing performed by : [address] [address] AST 19 10 - 45 Units/L [facility] Comment:Testing performed by : [address] [address] Blood 01/01/2025 5:26 AM RADIOACTIVITY TECHNICIAN 01/01/2025 5:53 AM RADIOACTIVITY TECHNICIAN us Rica Khan HYDRAULIC RIVETER LAB BLOOD ORDERABLES Final Res ult [facility]BE [address] [facility] Department [place] [address] * (ABNORMAL) eGFR (12/31/2024 5:17 AM RADIOACTIVITY TECHNICIAN) eGFR 17(L) >=60 mL/min/1. 73 m2 Comment: [...] was last reviewed 2021. Testing performed by: [address] [address] Blood 12/31/2024 5:17 AM RADIOACTIVITY TECHNICIAN 12/31/2024 6:20 AM RADIOACTIVITY TECHNICIAN us Rica Khan HYDRAULIC RIVETER LAB BLOOD ORDERABLES Final Res ult [facility] [address] [facility] [place] [address] * Differential, auto (12/31/2024 5:17 AM RADIOACTIVITY TECHNICIAN) Neutrophil abs 2.0 1.5 - 6.5 K/cumm Comment:Testing performed by : [address] [address] Imm gran abs 0.0 0.0 - 0.1 K/cumm [facility]BE Comment:Testing performed by : [address] [address] Lymphocyte abs 1.1 0.8 - 3.3 K/cumm [facility]BE Comment:Testing performed by : [address] [address] Monocyte abs 0.5 0.2 - 0.8 K/cumm [facility]BE Comment:Testing performed by : [address] [address] Eosinophil abs 0.2 0.0 - 0.5 K/cumm [facility] Comment:Testing performed by : [address] [address] Basophil abs 0.0 0.0 - 0.1 K/cumm ABEBE Comment:Testing performed by : [address] [address] Neutrophil pct 51.2 % [facility] [place] Comment: Interpretive Data Percent cell count reference ranges are not reported, since discordance with absolute values may lead to misinterpretation of CBC data. Current Interpretive Data was last revised on 2018. Testing performed by: [address] [address] Imm gran pct 1.0 % [facility] Comment: Interpretive Data Percent cell count reference ranges are not reported, since discordance with absolute values may lead to misinterpretation of CBC data. Current Interpretive Data was last revised on 2018. Testing performed by: [address] [address] Lymphocyte pct 29.0 % [facility] Comment: Interpretive Data Percent cell count reference ranges are not reported, since discordance with absolute values may lead to misinterpretation of CBC data. Current Interpretive Data was last revised on 2018. Testing performed by: [address] [address] Monocyte pct 13.7 % [facility] Comment: Interpretive Data Percent cell count reference ranges are not reported, since discordance with absolute values may lead to misinterpretation of CBC data. Current Interpretive Data was last revised on 2018. Testing performed by: [address] [address] Eosinophil pct 4.6 % [facility] [place] Comment: Interpretive Data Percent cell count reference ranges are not reported, since discordance with absolute values may lead to misinterpretation of CBC data. Current Interpretive Data was last revised on 2018. Testing performed by: [address] [address] Basophil pct 0.5 % [facility] Comment: Interpretive Data Percent cell count reference ranges are not reported, since discordance with absolute values may lead to misinterpretation of CBC data. Current Interpretive Data was last revised on 2018. Testing performed by: [address] [address] Blood 12/31/2024 5:17 AM RADIOACTIVITY TECHNICIAN 12/31/2024 6:20 AM RADIOACTIVITY TECHNICIAN us Ken Saul MD LAB BLOOD ORDERABLES Final [facility]ult [facility] [address] [facility] Department [place] [address] * (ABNORMAL) CBC with auto differential (12/31/2024 5:17 AM RADIOACTIVITY TECHNICIAN) WBC 3.9 3.8 - 9.9 K/cumm Comment:Testing performed by : [address] [address] Hgb 8.0(L) 11.9 - 15.5 g/dL [facility]BE Comment:Testing performed by : [address] [address] Hct 25.3(L) 35.6 - 45.5 % [facility] Comment:Testing performed by : [address] [address] Plt 131(L) 150 - 400 K/cumm [facility]BE Comment:Testing performed by : [address] [address] MPV 9.7 9.1 - 12.3 fL [facility]BE Comment:Testing performed by : [address] [address] RBC 2.75(L) 3.90 - 5.20 M/cumm [facility]BE Comment:Testing performed by : [address] [address] MCV 92.0 81.3 - 96.4 fL [facility] Comment:Testing performed by : [address] [address] MCH 29.1 27.1 - 33.3 pg [facility]BE Comment:Testing performed by : [address] [address] MCHC 31.6(L) 32.3 - 35.7 g/dL [facility]BE LOYA Comment:Testing performed by : [address] [address] RDW CV 14.5 11.1 - 14.9 % [facility] LOYA Comment:Testing performed by : [address] [address] RDW SD 48.6(H) 35.7 - 48.1 fL [facility] LOYA Comment:Testing performed by : [address] [address] NRBC abs 0.00 0.00 - 0.01 K/cumm [facility]BE Comment:Testing performed by : [address] [address] Blood 12/31/2024 5:17 AM RADIOACTIVITY TECHNICIAN 12/31/2024 6:20 AM RADIOACTIVITY TECHNICIAN us Ken Saul MD LAB BLOOD ORDERABLES Final Re sult [facility]BE [address] [facility] Department [place] [address] * (ABNORMAL) Comprehensive metabolic panel (12/31/2024 5:17 AM RADIOACTIVITY TECHNICIAN) Sodium 130(L) 135 - 145 mmol/L Comment:Testing performed by : [address] [address] Potassium, pl 4.7 3.3 - 4.9 mmol/L [facility] LOYA Comment:Testing performed by : [address] [address] Chloride 96(L) 97 - 110 mmol/L [facility] Comment:Testing performed by : [address] [address] CO2 20(L) 22 - 32 mmol/L [facility] LOYA Comment:Testing performed by : [address] [address] Anion gap 14 2 - 15 mmol/L [facility] LOYA Comment:Testing performed by : [address] [address] BUN 89(H) 6 - 25 mg/dL [facility] Comment:Testing performed by : [address] [address] Creatinine 2.80(H) 0.60 - 1.10 mg/dL [facility] Comment:Testing performed by : [address] [address] Glucose 70 70 - 199 mg/dL [facility] Comment: Interpretive Data Fasting glucose >/= [...] was last revised 2022. Testing performed by: [address] [address] Calcium 7.2(L) 8.5 - 10.3 mg/dL [facility] Comment:Testing performed by : [address] [address] Bilirubin, total 0.2 0.1 - 1.2 mg/dL [facility] Comment:Testing performed by : [address] [address] Protein, pl 5.7(L) 6.5 - 8.5 g/dL [facility] Comment:Testing performed by : [address] [address] Albumin 2.8(L) 3.5 - 5.0 g/dL [facility] Comment:Testing performed by : [address] [address] Alk phos 38(L) 40 - 130 Units/L [facility] Comment:Testing performed by : [address] [address] ALT 7 7 - 45 Units/L [facility] Comment:Testing performed by : [address] [address] AST 15 10 - 45 Units/L ABEBE SHALINI Comment:Testing performed by : [facility], [address] [place] [address], [place]., [address] Blood 12/31/2024 5:17 AM RADIOACTIVITY TECHNICIAN 12/31/2024 6:20 AM RADIOACTIVITY TECHNICIAN us Rica Khan HYDRAULIC RIVETER LAB BLOOD ORDERABLES Final Res ult ABEBE [address] [facility] [place] [address] * TRANSTHORACIC ECHO (TTE) LIMITED/FOLLOW UP W LTD DOPPLER/CF W CONTRAST (12/30/2024 3:45 PM RADIOACTIVITY TECHNICIAN) LV EF 55-60 % CONS SCIMAGE Anatomical Region Laterality Modality Ultrasound 12/30/2024 3:02 PM RADIOACTIVITY TECHNICIAN Narrative 01/01/2025 3:58 PM RADIOACTIVITY TECHNICIAN Transthoracic Echocardiographic Report Patient Name: NEGRITA LINCOLN C : 1950 (74y 1m) Gender: F Study Date: 12/30/2024 03:02:23 PM Ht(Inch): 64 Wt(Lb): 157.01 BSA: 1.79 Uranium Processing Supervisor: Marcelle Cade RDCS Location: [id number] Order Provider: ANDREI NEFF Heart Rate: 70 BMI: 26.95 BP: 130 / 57 Ref Provider: ANDREI NEFF Report amended on 2025-01-02 at 16:45:36 RADIOACTIVITY TECHNICIAN: Added/Modified: Mitral Valve [MODIFIED]: [MODIFIED] Mitral Regurgitation: [...] Previously Signed by:Kimmie Godoy MD 2025-01-01 15:57:33 RADIOACTIVITY TECHNICIAN End of Addendum PROCEDURES: Echocardiographic Report: ([id number]) Limited Echocardiography with contrast, transthoracic, 2D, includes [...] Visually Estimated EF 55-60 % MV Peak Lius 0.69 m/s LA Dimension 2D 4.70 cm [...] Signed By: Kimmie Godoy MD 2025-01-01 15:57:33 RADIOACTIVITY TECHNICIAN Electronically Amended By: Kimmie Godoy MD 01/02/2025 4:45:36 PM RADIOACTIVITY TECHNICIAN [ADDENDUM] Procedure Note Kimmie Godoy MD - 01/02/2025 Transthoracic Echocardiographic Report Patient Name: NEGRITA LINCOLN C : 1950 (74y 1m) Gender: F Study Date: 12/30/2024 03:02:23 PM Ht(Inch): 64 Wt(Lb): 157.01 BSA: 1.79 Uranium Processing Supervisor: Marcelle Cade RDCS Location: [place] [address] Order Provider:ANDREI NEFF Heart Rate: 70 BMI: 26.95 BP: 130 / 57 Ref Provider: ANDREI NEFF Report amended on 2025-01-02 at 16:45:36 RADIOACTIVITY TECHNICIAN: Added/Modified: Mitral Valve [MODIFIED]: [MODIFIED] Mitral Regurgitation: [...] Previously Signed by:Kimmie Godoy MD 2025-01-01 15:57:33 RADIOACTIVITY TECHNICIAN End of Addendum PROCEDURES: Echocardiographic Report: ([id number]) Limited Echocardiography with contrast,transthoracic, 2D, includes M-mode [...] cm [ 2.00 - 3.00 ] MR [id number] cm MR PISA 0.4 cm TR Peak [...] Signed By: Kimmie Godoy MD 2025-01-01 15:57:33 RADIOACTIVITY TECHNICIAN Electronically Amended By: Kimmie Godoy MD 01/02/2025 4:45:36 PM RADIOACTIVITY TECHNICIAN [ADDENDUM] Andrei Neff NP CV ECHO PROCEDURES Edited Resul t - Final * (ABNORMAL) eGFR (12/30/2024 9:55 AM RADIOACTIVITY TECHNICIAN) eGFR 19(L) >=60 mL/min/1. 73 m2 Comment: [...] was last reviewed 2021. Testing performed by: [facility], [address] [place] [address], [place]., [address] Blood 12/30/2024 9:55 AM RADIOACTIVITY TECHNICIAN 12/30/2024 10:11 AM RADIOACTIVITY TECHNICIAN us Rica Khan HYDRAULIC RIVETER LAB BLOOD ORDERABLES Final Res ult ABEBE [address] [facility] Department of Laboratories [place], [place] [id number] * (ABNORMAL) Pro B-type natriuretic peptide (12/30/2024 9:55 AM RADIOACTIVITY TECHNICIAN) NT-proBNP 12,641(H) <=450 pg/mL Comment: Interpretive Comments: [...] Last Revised Date: 2018. Testing performed by: [facility], [address] [place] [address]., [address] Blood 12/30/2024 9:55 AM RADIOACTIVITY TECHNICIAN 12/30/2024 10:11 AM RADIOACTIVITY TECHNICIAN us Rica Khan HYDRAULIC RIVETER LAB BLOOD ORDERABLES Final Res ult ABEBE [address] [facility] Department [place] [address] * (ABNORMAL) Comprehensive metabolic panel (12/30/2024 9:55 AM RADIOACTIVITY TECHNICIAN) Sodium 128(L) 135 - 145 mmol/L Comment:Testing performed by : [address] [address] Potassium, pl 4.4 3.3 - 4.9 mmol/L ABEBE Comment:Testing performed by : [address] [address] Chloride 94(L) 97 - 110 mmol/L [facility] Comment:Testing performed by : [address] [address] CO2 21(L) 22 - 32 mmol/L [facility] Comment:Testing performed by : [address] [address] Anion gap 13 2 - 15 mmol/L [facility] Comment:Testing performed by : [address] [address] BUN 84(H) 6 - 25 mg/dL [facility] Comment:Testing performed by : [address] [address] Creatinine 2.60(H) 0.60 - 1.10 mg/dL [facility] Comment:Testing performed by : [address] [address] Glucose 121 70 - 199 mg/dL ABEBE [...] was last revised 2022. Testing performed by: [address] [address] Calcium 7.5(L) 8.5 - 10.3 mg/dL [facility] Comment:Testing performed by : [address] [address] Bilirubin, total 0.2 0.1 - 1.2 mg/dL [facility] Comment:Testing performed by : [address] [address] Protein, pl 5.8(L) 6.5 - 8.5 g/dL [facility] Comment:Testing performed by : [address] [address] Albumin 3.0(L) 3.5 - 5.0 g/dL [facility] Comment:Testing performed by : [address] [address] Alk phos 38(L) 40 - 130 Units/L [facility] Comment:Testing performed by : [address] [address] ALT 7 7 - 45 Units/L [facility] Comment:Testing performed by : [address] [address] AST 15 10 - 45 Units/L [facility] Comment:Testing performed by : [address] [address] Blood 12/30/2024 9:55 AM RADIOACTIVITY TECHNICIAN 12/30/2024 10:11 AM RADIOACTIVITY TECHNICIAN us Rica Khan HYDRAULIC RIVETER LAB BLOOD ORDERABLES Final Res ult ABEBE LOYA [address] [facility] Department of Laboratories [place], [place] [id number] * Tacrolimus level trough (12/29/2024 8:15 AM RADIOACTIVITY TECHNICIAN) [facility] Tacrolimus trough 6.6 ng/mL Comment: Interpretive Data Testing performed by liquid chromatography-tandem mass spectrometry. Therapeutic concentrations vary depending on type of transplanted organ and time elapsed since transplant. Typical trough concentrations range from 5-15 ng/mL. This test was developed and its performance characteristics determined by the [facility] consistent with CLIA requirements. This test has not been cleared or approved by the [place] Food and Drug administration. Current interpretive data last reviewed 2020. Testing performed by: [facility], [address] [place]., [address] Blood 12/29/2024 8:15 AM RADIOACTIVITY TECHNICIAN 12/29/2024 2:50 PM RADIOACTIVITY TECHNICIAN us Higinio Haji MD LAB BLOOD ORDERABLES Final Resu lt ABEBE [address] [facility] [place] [address] * (ABNORMAL) eGFR (12/29/2024 5:57 AM RADIOACTIVITY TECHNICIAN) eGFR 19(L) >=60 mL/min/1. 73 m2 Comment: [...] was last reviewed 2021. Testing performed by: [facility], [address] [place] [address]., [address] Blood 12/29/2024 5:57 AM RADIOACTIVITY TECHNICIAN 12/29/2024 6:47 AM RADIOACTIVITY TECHNICIAN us Rica Khan HYDRAULIC RIVETER LAB BLOOD ORDERABLES Final Res ult ABEBE MH [address] [facility] Department [place] [address] * (ABNORMAL) Pro B-type natriuretic peptide (12/29/2024 5:57 AM RADIOACTIVITY TECHNICIAN) NT-proBNP 15,077(H) <=450 pg/mL Comment: Interpretive Comments: [...] Last Revised Date: 2018. Testing performed by: [facility], [address] [place] [address]., [address] Blood 12/29/2024 5:57 AM RADIOACTIVITY TECHNICIAN 12/29/2024 6:47 AM RADIOACTIVITY TECHNICIAN us Rica Khan HYDRAULIC RIVETER LAB BLOOD ORDERABLES Final Res ult [facility] [address] [facility] Department [place] [address] * (ABNORMAL) Comprehensive metabolic panel (12/29/2024 5:57 AM RADIOACTIVITY TECHNICIAN) Sodium 128(L) 135 - 145 mmol/L Comment:Testing performed by : [address] [address] Potassium, pl 4.7 3.3 - 4.9 mmol/L ABEBE Comment:Testing performed by : [address] [address] Chloride 94(L) 97 - 110 mmol/L [facility] Comment:Testing performed by : [address] [address] CO2 21(L) 22 - 32 mmol/L [facility] Comment:Testing performed by : [address] [address] Anion gap 13 2 - 15 mmol/L [facility] Comment:Testing performed by : [address] [address] BUN 84(H) 6 - 25 mg/dL [facility] Comment:Testing performed by : [address] [address] Creatinine 2.60(H) 0.60 - 1.10 mg/dL [facility] Comment:Testing performed by : [address] [address] Glucose 79 70 - 199 mg/dL ABEBE [...] classification and Diagnosis of Diabetes Diabetes Care 2022; 46: S19-S40. Current interpretive data was last revised 2022. Testing performed by: [address] [address] Calcium 7.7(L) 8.5 - 10.3 mg/dL ABEBE Comment:Testing performed by : [address] [address] Bilirubin, total 0.2 0.1 - 1.2 mg/dL [facility] Comment:Testing performed by : [address] [address] Protein, pl 5.5(L) 6.5 - 8.5 g/dL [facility] Comment:Testing performed by : [address] [address] Albumin 2.8(L) 3.5 - 5.0 g/dL [facility]BE Comment:Testing performed by : [address] [address] Alk phos 40 40 - 130 Units/L [facility] Comment:Testing performed by : [address] [address] ALT 7 7 - 45 Units/L [facility] Comment:Testing performed by : [address] [address] AST 14 10 - 45 Units/L [facility] Comment:Testing performed by : [address] [address] Blood 12/29/2024 5:57 AM RADIOACTIVITY TECHNICIAN 12/29/2024 6:47 AM RADIOACTIVITY TECHNICIAN us Rica Khan HYDRAULIC RIVETER LAB BLOOD ORDERABLES Final Res ult ABEBE [address] [facility] Department [place] [address] * XR Shoulder Left 2 or More Views (12/28/2024 2:16 PM RADIOACTIVITY TECHNICIAN) Anatomical Region Laterality Modality Upper Extremities, Shoulder Left Comp uted Radiography 12/28/2024 4:38 PM RADIOACTIVITY TECHNICIAN Narrative 12/28/2024 4:41 PM RADIOACTIVITY TECHNICIAN EXAM DESCRIPTION: XR SHOULDER LEFT 2 OR [...] 4:41 PM - Electronically signed by Quinten CASTANEDA Report ID: [id number] Reading Location: [id number] Procedure Note Quinten Hemphill MD - 12/28/2024 [...] 4:41 PM - Electronically signed by Quinten CASTANEDA: LEONEL Report ID: [id number] Reading Location: [id number] Marino Hernandez MD IMG XR PROCEDURES Final Result * (ABNORMAL) eGFR (12/28/2024 1:56 AM RADIOACTIVITY TECHNICIAN) eGFR 19(L) >=60 mL/min/1. 73 m2 Comment: [...] was last reviewed 2021. Testing performed by: [facility], [address] [place] [address]., [address] Blood 12/28/2024 1:56 AM RADIOACTIVITY TECHNICIAN 12/28/2024 3:47 AM RADIOACTIVITY TECHNICIAN us Rica Khan HYDRAULIC RIVETER LAB BLOOD ORDERABLES Final Res ult [facility] [address] [facility] [place] [address] * (ABNORMAL) Pro B-type natriuretic peptide (12/28/2024 1:56 AM RADIOACTIVITY TECHNICIAN) NT-proBNP 19,665(H) <=450 pg/mL Comment: Interpretive Comments: [...] Last Revised Date: 2018. Testing performed by: [address] [address] Blood 12/28/2024 1:56 AM RADIOACTIVITY TECHNICIAN 12/28/2024 3:47 AM RADIOACTIVITY TECHNICIAN us Rica Khan HYDRAULIC RIVETER LAB BLOOD ORDERABLES Final Res ult [facility] [address] [facility] [facility] [place] [address] * (ABNORMAL) Comprehensive metabolic panel (12/28/2024 1:56 AM RADIOACTIVITY TECHNICIAN) Sodium 124(L) 135 - 145 mmol/L Comment:Testing performed by : [address] [address] Potassium, pl 5.3(H) 3.3 - 4.9 mmol/L ABEBE LOYA Comment:Testing performed by : [address] [address] Chloride 94(L) 97 - 110 mmol/L ABEBE LOYA Comment:Testing performed by : [address] [place] [address] CO2 20(L) 22 - 32 mmol/L ABEBE Comment:Testing performed by : [address] [address] Anion gap 10 2 - 15 mmol/L ABEBE Comment:Testing performed by : [address] [address] BUN 87(H) 6 - 25 mg/dL ABEBE Comment:Testing performed by : [address] [address] Creatinine 2.56(H) 0.60 - 1.10 mg/dL [facility] [place] [facility] Comment:Testing performed by : [address] [address] Glucose 112 70 - 199 mg/dL [facility] Comment: Interpretive Data Fasting glucose >/= [...] was last revised 2022. Testing performed by: [address] [address] Calcium 8.0(L) 8.5 - 10.3 mg/dL ABEBE Comment:Testing performed by : [address] [address] Bilirubin, total 0.2 0.1 - 1.2 mg/dL [facility] Comment:Testing performed by : [address] [address] Protein, pl 5.6(L) 6.5 - 8.5 g/dL ABEBE Comment:Testing performed by : [address] [address] Albumin 2.9(L) 3.5 - 5.0 g/dL ABEBE Comment:Testing performed by : [address] [address] Alk phos 44 40 - 130 Units/L ABEBE Comment:Testing performed by : [address], [address] ALT 7 7 - 45 Units/L ABEBE Comment:Testing performed by : [address], [address] AST 16 10 - 45 Units/L ABEBE Comment:Testing performed by : [address], [address] Blood 12/28/2024 1:56 AM RADIOACTIVITY TECHNICIAN 12/28/2024 3:47 AM RADIOACTIVITY TECHNICIAN us Rica Khan HYDRAULIC RIVETER LAB BLOOD ORDERABLES Final Res ult [facility]6 [facility] Department of Laboratories [place], [place] [id number] * TRANSTHORACIC ECHO (TTE) COMPLETE W DOPPLER/CF WO CONTRAST (12/27/2024 9:06 AM RADIOACTIVITY TECHNICIAN) LV EF 55-60 % CONS SCIMAGE Anatomical Region Laterality Modality Ultrasound 12/27/2024 8:25 AM RADIOACTIVITY TECHNICIAN Narrative 12/27/2024 5:51 PM RADIOACTIVITY TECHNICIAN Transthoracic Echocardiographic Report Patient Name: NEGRITA LINCOLN C : 1950 (74y 1m) Gender: F Study Date: 12/27/2024 08:25:07 AM Ht(Inch): 64 Wt(Lb): 170 BSA: 1.87 Uranium Processing Supervisor: Adrianna Quintanilla RDCS Location: [id number] Order Provider: MAYDA ESCOBAR Heart Rate: 68 BMI: 29.18 BP: 133 / 90 Ref Provider: MAYDA ESCOBAR PROCEDURES: Echocardiographic Report: ([id number]) Transthoracic complete echo, 2D, spectral and tissue [...] By: Henry Cardona MD 12/27/2024 5:50:03 PM RADIOACTIVITY TECHNICIAN Procedure Note Henry Cardona MD - 12/27/2024 Transthoracic Echocardiographic Report Patient Name: NEGRITA LINCOLN C : 1950 (74y 1m) Gender: F Study Date: 12/27/2024 08:25:07 AM Ht(Inch): 64 Wt(Lb): 170 BSA: 1.87 Uranium Processing Supervisor: Adrianna Quintanilla RDCS Location: [place] [address] Order Provider:MAYDA ESCOBAR Heart Rate: 68 BMI: 29.18 BP: 133 / 90 Ref Provider: MAYDA ESCOBAR PROCEDURES: Echocardiographic Report: ([id number]) Transthoracic complete echo, 2D,spectral and tissue Doppler, [...] By: Henry Cardona MD 12/27/2024 5:50:03 PM RADIOACTIVITY TECHNICIAN us Mayda Escobar HYDRAULIC RIVETER CV ECHO PROCEDURES Final Res ult * (ABNORMAL) eGFR (12/27/2024 6:44 AM RADIOACTIVITY TECHNICIAN) eGFR 20(L) >=60 mL/min/1. 73 m2 Comment: [...] was last reviewed 2021. Testing performed by: [address] [address] Blood 12/27/2024 6:44 AM RADIOACTIVITY TECHNICIAN 12/27/2024 7:26 AM RADIOACTIVITY TECHNICIAN us Mayda Escobar NP LAB BLOOD ORDERABLES Final R esult ABEBE 1397 [facility] [place] [address] * (ABNORMAL) Basic metabolic panel (12/27/2024 6:44 AM RADIOACTIVITY TECHNICIAN) Pathologist [facility] Sodium 124(L) 135 - 145 mmol/L Comment:Testing performed by : [address] [address] Potassium, pl 5.1(H) 3.3 - 4.9 mmol/L ABEBE LOYA Comment:Testing performed by : [address] [address] Chloride 93(L) 97 - 110 mmol/L ABEBE Comment:Testing performed by : [address] [address] CO2 20(L) 22 - 32 mmol/L ABEBE Comment:Testing performed by : [address] [address] Anion gap 11 2 - 15 mmol/L ABEBE Comment:Testing performed by : [address] [address] BUN 84(H) 6 - 25 mg/dL ABEBE Comment:Testing performed by : [address] [address] Creatinine 2.50(H) 0.60 - 1.10 mg/dL ABEBE Comment:Testing performed by : [address] [address] Glucose 115 70 - 199 mg/dL ABEBE [...] was last revised 2022. Testing performed by: [address] [address] Calcium 8.4(L) 8.5 - 10.3 mg/dL ABEBE Comment:Testing performed by : [address] [address] Blood 12/27/2024 6:44 AM RADIOACTIVITY TECHNICIAN 12/27/2024 7:26 AM RADIOACTIVITY TECHNICIAN us Mayda Escobar NP LAB BLOOD ORDERABLES Final R esult ABEBE 2588 [facility] [place] [address] * (ABNORMAL) eGFR (12/27/2024 6:42 AM RADIOACTIVITY TECHNICIAN) eGFR 20(L) >=60 mL/min/1. 73 m2 Comment: [...] was last reviewed 2021. Testing performed by: [address] [address] Blood 12/27/2024 6:42 AM RADIOACTIVITY TECHNICIAN 12/27/2024 7:26 AM RADIOACTIVITY TECHNICIAN us Mayda Escobar NP LAB BLOOD ORDERABLES Final R esult ABEBE 5330 [facility] [place] [address] * (ABNORMAL) Basic metabolic panel (12/27/2024 6:42 AM RADIOACTIVITY TECHNICIAN) Sodium 125(L) 135 - 145 mmol/L Comment:Testing performed by : [address] [address] Potassium, pl 5.0(H) 3.3 - 4.9 mmol/L ABEBE LOYA Comment:Testing performed by : [address] [address] Chloride 94(L) 97 - 110 mmol/L ABEBE LOYA Comment:Testing performed by : [address] [address] CO2 20(L) 22 - 32 mmol/L ABEBE Comment:Testing performed by : [address] [address] Anion gap 11 2 - 15 mmol/L ABEBE Comment:Testing performed by : [address] [address] BUN 84(H) 6 - 25 mg/dL ABEBE Comment:Testing performed by : [address] [address] Creatinine 2.50(H) 0.60 - 1.10 mg/dL ABEBE Comment:Testing performed by : [address] [address] Glucose 115 70 - 199 mg/dL ABEBE [...] was last revised 2022. Testing performed by: [address] [address] Calcium 8.5 8.5 - 10.3 mg/dL ABEBE Comment:Testing performed by : [address] [address] Blood 12/27/2024 6:4 2 AM RADIOACTIVITY TECHNICIAN 12/27/2024 7:26 AM RADIOACTIVITY TECHNICIAN us Mayda Escobar NP LAB BLOOD ORDERABLES Final R esult ABEBE 2629 [facility] Department of Laboratories [place], [place] [id number] * Sodium, urine, random (12/27/2024 6:29 AM RADIOACTIVITY TECHNICIAN) Sodium, ur 58 mmol/L Comment: Interpretive Data No reference range established. Current interpretive data was last revised 2019. Urine 12/27/2024 6:29 AM RADIOACTIVITY TECHNICIAN 12/27/2024 8:25 AM RADIOACTIVITY TECHNICIAN Mayda Escobar HYDRAULIC RIVETER LAB URINE ORDERABLES Final R esult Performing Organization Address [facility] Co de Phone Number [address] [place] [address] * (ABNORMAL) Osmolality, urine (12/27/2024 6:29 AM RADIOACTIVITY TECHNICIAN) Osmo, ur 276(L) 300 - 800 mOsm/kg Urine 12/27/2024 6:29 AM RADIOACTIVITY TECHNICIAN 12/27/2024 8:31 AM RADIOACTIVITY TECHNICIAN Mayda Escobar HYDRAULIC RIVETER LAB URINE ORDERABLES Final R esult Performing Organization Address [facility] de Phone Number [address] [place] [address] * (ABNORMAL) eGFR (12/27/2024 5:24 AM RADIOACTIVITY TECHNICIAN) eGFR 20(L) >=60 mL/min/1. 73 m2 Comment: [...] was last reviewed 2021. Testing performed by: [address] [address] Blood 12/27/2024 5:24 AM RADIOACTIVITY TECHNICIAN 12/27/2024 6:55 AM RADIOACTIVITY TECHNICIAN us Mayda Escobar HYDRAULIC RIVETER LAB BLOOD ORDERABLES Final R esult Performing Organization Address [facility] Co de Phone Number NINA[address] [address] * Thyroid Function Dorado (12/27/2024 5:24 AM RADIOACTIVITY TECHNICIAN) TSH 3.36 0.30 - 4.20 mcIUnit/mL Comment:Testing performed by : [address] [address] Blood 12/27/2024 5:24 AM RADIOACTIVITY TECHNICIAN 12/27/2024 6:55 AM RADIOACTIVITY TECHNICIAN Mayda Escobar HYDRAULIC RIVETER LAB BLOOD ORDERABLES Final R esult Performing Organization Address [facility] Co de Phone Number NINA[address] [address] * (ABNORMAL) Phosphorus (12/27/2024 5:24 AM RADIOACTIVITY TECHNICIAN) Phosphorus, pl 5.1(H) 2.3 - 4.5 mg/dL Comment:Testing performed by : [address] [address] Blood 12/27/2024 5:24 AM RADIOACTIVITY TECHNICIAN 12/27/2024 6:55 AM RADIOACTIVITY TECHNICIAN Mayda Escobar HYDRAULIC RIVETER LAB BLOOD ORDERABLES Final R esult Performing Organization Address [facility] Co de Phone Number NINA[address] [place] [address] * Osmolality, blood (12/27/2024 5:24 AM RADIOACTIVITY TECHNICIAN) Osmo 294 275 - 295 mOsm/kg Blood 12/27/2024 5:24 AM RADIOACTIVITY TECHNICIAN 12/27/2024 8:25 AM RADIOACTIVITY TECHNICIAN Mayda Escobar HYDRAULIC RIVETER LAB BLOOD ORDERABLES Final R esult Performing Organization Address City/[facility]/ZIP Co de Phone Number [address] [place] [address] * Magnesium (12/27/2024 5:24 AM RADIOACTIVITY TECHNICIAN) Pathologist [facility] Magnesium 2.0 1.4 - 2.5 mg/dL Comment:Testing performed by : [address] [address] Blood 12/27/2024 5:24 AM RADIOACTIVITY TECHNICIAN 12/27/2024 6:55 AM RADIOACTIVITY TECHNICIAN Mayda Escobar HYDRAULIC RIVETER LAB BLOOD ORDERABLES Final R esult Performing Organization Address City/[facility] Co de Phone Number [address] [address] * Lipid panel (12/27/2024 5:24 AM RADIOACTIVITY TECHNICIAN) Pathologist [facility] Cholesterol 109 30 - 199 mg/dL Comment: [...] last revised on 2018. Testing performed by: [address] [address] Triglycerides 64 <=149 mg/dL ABEBE Comment: Interpretive [...] last revised on 2018. Testing performed by: [address] [address] HDL 54 >=40 mg/dL ABEBE Comment: Interpretive Data Ages < [...] last revised on 2018. Testing performed by: [address] [address] LDL, calculated 41 <=129 mg/dL ABEBE Comment: Interpretive Data Ages < [...] last revised on 2024. Testing performed by: [address] [address] Non-HDL Cholesterol 55 mg/dL ABEBE Comment: Interpretive Data Ages < [...] last revised on 2018. Testing performed by: [address] [address] Chol/HDL ratio 2 ABEBE Comment:Testing performed by : [address] [address] Blood 12/27/2024 5:24 AM RADIOACTIVITY TECHNICIAN 12/27/2024 6:55 AM RADIOACTIVITY TECHNICIAN us Mayda Escobar NP LAB BLOOD ORDERABLES Final R esult ABEBE 1817 [facility] [place] [address] * (ABNORMAL) Comprehensive metabolic panel (12/27/2024 5:24 AM RADIOACTIVITY TECHNICIAN) [facility] Sodium 125(L) 135 - 145 mmol/L Comment:Testing performed by : [address] [address] Potassium, pl 5.2(H) 3.3 - 4.9 mmol/L ABEBE LOYA Comment:Testing performed by : [address] [address] Chloride 94(L) 97 - 110 mmol/L ABEBE Comment:Testing performed by : [address] [address] CO2 20(L) 22 - 32 mmol/L ABEBE Comment:Testing performed by : [address] [address] Anion gap 11 2 - 15 mmol/L ABEBE Comment:Testing performed by : [address] [address] BUN 84(H) 6 - 25 mg/dL ABEBE Comment:Testing performed by : [address] [address] Creatinine 2.50(H) 0.60 - 1.10 mg/dL ABEBE Comment:Testing performed by : [address] [address] Glucose 121 70 - 199 mg/dL [facility] [place] [facility] Comment: Interpretive Data Fasting glucose >/= 126 [...] was last revised 2022. Testing performed by: [address] [address] Calcium 8.4(L) 8.5 - 10.3 mg/dL ABEBE Comment:Testing performed by : [address] [address] Bilirubin, total 0.2 0.1 - 1.2 mg/dL ABEBE Comment:Testing performed by : [address] [address] Protein, pl 5.8(L) 6.5 - 8.5 g/dL ABEBE Comment:Testing performed by : [address] [address] Albumin 3.0(L) 3.5 - 5.0 g/dL ABEBE LOYA Comment:Testing performed by : [facility], [address] [place] [address]., [address] Alk phos 46 40 - 130 Units/L ABEBE Comment:Testing performed by : [address] [address] ALT 6(L) 7 - 45 Units/L ABEBE Comment:Testing performed by : [address] [address] AST 13 10 - 45 Units/L ABEBE Comment:Testing performed by : [address] [address] Blood 12/27/2024 5:24 AM RADIOACTIVITY TECHNICIAN 12/27/2024 6:55 AM RADIOACTIVITY TECHNICIAN us Mayda Escobar NP LAB BLOOD ORDERABLES Final R esult ABEBE 9187 [facility] [place] [address] * [place] Thyroid (12/26/2024 10:19 PM RADIOACTIVITY TECHNICIAN) Anatomical Region Laterality Modality Head and Neck N/A Ultrasound 12/27/2024 3:31 AM RADIOACTIVITY TECHNICIAN Narrative 12/27/2024 3:44 AM RADIOACTIVITY TECHNICIAN EXAM DESCRIPTION: US THYROID REASON FOR STUDY: Thyroid nodule, incidental, >= 1.5cm, risk factors (Age => 34y) TECHNIQUE: A Dynamic assessment of the thyroid was performed by the linen room worker with selected grayscale and color Doppler images [...] the ACR TI-RADS Committee. Journal of the [place] [employer], 14(5), 587-595. http://dx.doi.org/10.1016/j.jacr.2017.01.046 THIS IS AN ELECTRONICALLY VERIFIED FINAL REPORT 12/27/2024 3:44 AM - Electronically signed by Amy Hayes M.D. SN: SN Report ID: [id number] Reading Location: [place] [address] Procedure Note Amy Hayes MD - 12/27/2024 EXAM DESCRIPTION: US THYROID REASON FOR STUDY: Thyroid nodule, incidental, >= 1.5cm, risk factors(Age => 34y) TECHNIQUE: A Dynamic assessment of the thyroid was performed by the linen room worker with selected grayscale and color Doppler images [...] on ACR TI-RADS points should be sampled. *Manny et al. (March 2017) ACR Thyroid Imaging, Reporting and Data System (TI-RADS): White Paper of the ACR TI-RADS Committee. Journal of theAmerican College of Radiology, 14(5), 587-595. http://dx.doi.org/10.1016/j.jacr.2017.01.046 THIS IS AN ELECTRONICALLY VERIFIED FINAL REPORT 12/27/2024 3:44 AM - Electronically signed by Amy Hayes M.D. SN: Report ID: [id number] Reading Location: [id number] us Mayda Escobar HYDRAULIC RIVETER IMG US PROCEDURES Final Resu lt * (ABNORMAL) Troponin T high-sensitivity 6-hour (12/26/2024 6:16 PM RADIOACTIVITY TECHNICIAN) Pathologist [facility] Trop T hs 33(H) <=14 ng/L Comment: Interpretive Data For further hscTnT resources including the diagnostic algorithm and an aid in interpretation, copy and paste this link: https://nrl.testcatalog.org/show/hsTrop Current Interpretive Data last revised 2020. Testing performed by: [address] [address] Trop T hs delta -7 ng/L ABEBE LOYA Comment:Testing performed by : [address] [address] Trop T hs interp Equivocal ABEBE Comment:Testing performed by : [address] [address] Blood 12/26/2024 6:16 PM RADIOACTIVITY TECHNICIAN 12/26/2024 6:23 PM RADIOACTIVITY TECHNICIAN Robbie Shearer DO LAB BLOOD ORDERABLES Final Result Performing Organization Address [facility] Co de Phone Number NINA[address] [place], [place] [id number] * Phosphorus (12/26/2024 6:16 PM RADIOACTIVITY TECHNICIAN) [facility] Phosphorus, pl 4.5 2.3 - 4.5 mg/dL Comment:Testing performed by : [address] [address] Blood 12/26/2024 6:16 PM RADIOACTIVITY TECHNICIAN 12/26/2024 6:23 PM RADIOACTIVITY TECHNICIAN Marino Hernandez MD LAB BLOOD ORDERABLES Fi nal Result Performing Organization Address City/[facility]/ZIP Co de Phone Number [address] [place] [address] * Magnesium (12/26/2024 6:16 PM RADIOACTIVITY TECHNICIAN) Pathologist [facility] Magnesium 2.0 1.4 - 2.5 mg/dL Comment:Testing performed by : [address] [address] Blood 12/26/2024 6:16 PM RADIOACTIVITY TECHNICIAN 12/26/2024 6:23 PM RADIOACTIVITY TECHNICIAN Marino Hernandez MD LAB BLOOD ORDERABLES Fi nal Result ABE[facility]2 [facility] [place] [address] * Influenza A/B, RSV, and COVID-19 PCR Nasopharyngeal (12/26/2024 6:13 PM RADIOACTIVITY TECHNICIAN) Pathologist [facility] COVID-19 RNA Negative Negative Comment:Testing performed by : [address] [address] Influenza A RNA Negative Negative [facility] Comment:Testing performed by : [address] [address] Influenza B RNA Negative Negative [facility] Comment:Testing performed by : [address] [address] RSV RNA Negative Negative [facility] Comment: Interpretive data: Testing performed by [facility]. This test is performed using the [employer] Xpert Xpress CoV-2/Flu/RSV plus assay. This is a multiplex, real-time reverse transcriptase PCR assay intended for the qualitative detection of nucleic acid from SARS-CoV-2, influenza A, influenza B, and respiratory syncytial virus. This assay has been cleared by the [place] Food and Drug administration. The performance characteristics have been verified by the [facility]. Results must be considered in the clinical context, and a negative result does not rule out infection. Interpretive Data last revised 2023 Testing performed by: [address] [address] Nasopharyngeal 12/26/2024 6: 13 PM RADIOACTIVITY TECHNICIAN 12/26/2024 6:23 PM RADIOACTIVITY TECHNICIAN Narrative ABEBE [place] 12/26/2024 7:02 PM RADIOACTIVITY TECHNICIAN Is the Patient experiencing symptoms consistent with COVID?->Yes Robbie Shearer DO LAB MICROBIOLOGY - GENERAL ORDERABLES Final Result Performing Organization Address [facility] Co de Phone Number ABEBE [address] [place] [address] * (ABNORMAL) Troponin T high-sensitivity 4-hour (12/26/2024 4:46 PM RADIOACTIVITY TECHNICIAN) Trop T hs 36(H) <=14 ng/L Comment: Interpretive Data For further hscTnT resources including the diagnostic algorithm and an aid in interpretation, copy and paste this link: https://nrl.testcatalog.org/show/hsTrop Current Interpretive Data last revised 2020. Testing performed by: [address] [address] Trop T hs delta -4 ng/L ABEBE Comment:Testing performed by : [address] [address] Trop T hs interp Insignificant ABEBE Comment:Testing performed by : [address] [address] Blood 12/26/2024 4:46 PM RADIOACTIVITY TECHNICIAN 12/26/2024 4:50 PM RADIOACTIVITY TECHNICIAN Robbie Shearer DO LAB BLOOD ORDERABLES Final Result Performing Organization Address [facility] de Phone Number ABEBE [address] [place] [address] * (ABNORMAL) Urinalysis reflex to microscopic and culture Urine, clean voided (12/26/2024 2:44 PM RADIOACTIVITY TECHNICIAN) Color, ur Yellow Yellow Comment:Testing performed by : [address] [address] Clarity, ur Clear Clear ABEBE Comment:Testing performed by : [address] [address] Specific gravity, ur 1.011 1.003 - 1.030 ABEBE Comment:Testing performed by : [facility], [address] [place] [address], [place]., [address] pH, urine 5.0 ABEBE Comment: Interpretive Data U rine pH is affected by diet, medications, systemic acid-base disturbances, and renal tubular function. pH may affect urinary stone formation. For example, urine pH below 6.0 may help reduce the tendency for calcium phosphate stones and pH greater than 6.0 may reduce the tendency for uric acid stone formation. Source: [facility] [employer] Current Interpretive Data was last revised on 2017 Testing performed by: [facility], [address] [place] [address], [place]., [address] Protein, ur ql 1+(A) Negative ABEBE Comment:Testing performed by : [address], [place]., [address] Glucose, ur ql Negative Negative ABEBE Comment:Testing performed by : [address], [place]., [address] Ketones, ur Negative Negative ABEBE Comment:Testing performed by : [address], [place]., [address] Bilirubin, ur Negative Negative ABEBE Comment:Testing performed by : [address], [place]., [address] Blood, ur Negative Negative ABEBE Comment:Testing performed by : [address], [place]., [address] Urobilinogen, ur <2.0 <2.0 mg/dL ABEBE Comment:Testing performed by : [address] [address] Nitrite, ur Negative Negative ABEBE Comment:Testing performed by : [address], [place]., [address] Leukocyte esterase, ur Negative Negative ABEBE Comment:Testing performed by : [address], [place]., [address] UA reflex comment Reflex to microscopic UA will be performed. ABEBE Comment:Testing performed by : [address], [place]., [address] Urine, clean voided 12/26/2024 2:44 PM RADIOACTIVITY TECHNICIAN 12/26/2024 2:48 PM RADIOACTIVITY TECHNICIAN Robbie Shearer DO LAB MICROBIOLOGY - GENERAL ORDERABLES Final Result Performing Organization Address [facility] de Phone Number ABEBE [address] [address] * Urinalysis, microscopic only (12/26/2024 2:44 PM RADIOACTIVITY TECHNICIAN) WBC, ur 0-5 0 - 5 /HPF Comment:Testing performed by : [facility], [address] [place] [address]., [address] RBC, ur 0-2 0 - 2 /HPF ABEBE Comment:Testing performed by : [address] [address] Culture Reflex Comment Reflex conditions for urine culture (WBC >10) not met. ABEBE Comment:Testing performed by : [address] [address] Urine, clean voided 12/26/2024 2:44 PM RADIOACTIVITY TECHNICIAN 12/26/2024 2:48 PM RADIOACTIVITY TECHNICIAN Robbie Shearer DO LAB URINE ORDERABLES Final Result Performing Organization Address [facility] de Phone Number [address] [address] * Urine culture Urine, clean voided (12/26/2024 2:44 PM RADIOACTIVITY TECHNICIAN) Report Final Report: No growth Comment:Testing performed by : [facility], [address] [facility] [place]., [address] Urine, clean voided 12/26/2024 2:44 PM RADIOACTIVITY TECHNICIAN 12/26/2024 9:48 PM RADIOACTIVITY TECHNICIAN Narrative ABEBE - 12/28/2024 7:48 AM RADIOACTIVITY TECHNICIAN Indications for Culture:->Recent positive UA Testing performed by [facility] ([phone]) Takeysha L. Lowe HYDRAULIC RIVETER LAB MICROBIOLOGY - GENERAL O RDERABLES Final Result Performing Organization Address [facility]/ZIP Co de Phone Number N[address] [place] [address] * (ABNORMAL) Troponin T high-sensitivity 2-hour (12/26/2024 2:19 PM RADIOACTIVITY TECHNICIAN) Trop T hs 39(H) <=14 ng/L Comment: Interpretive Data For further hscTnT resources including the diagnostic algorithm and an aid in interpretation, copy and paste this link: https://nrl.testcatalog.org/show/hsTrop Current Interpretive Data last revised 2020. Testing performed by: [address] [address] Trop T hs delta -1 ng/L ABEBE Comment:Testing performed by : [address] [address] Trop T hs interp Insignificant ABEBE Comment:Testing performed by : [address] [address] Blood 12/26/2024 2:19 PM RADIOACTIVITY TECHNICIAN 12/26/2024 2:28 PM RADIOACTIVITY TECHNICIAN Robbie Shearer DO LAB BLOOD ORDERABLES Final Result Performing Organization Address [facility] Co de Phone Number [address] [address] * Sepsis Lactate w/ Reflex (12/26/2024 2:19 PM RADIOACTIVITY TECHNICIAN) [facility] Sepsis Lactate 0.8 0.7 - 2.0 mmol/L Comment:Testing performed by : [address] [address] Blood 12/26/2024 2:19 PM RADIOACTIVITY TECHNICIAN 12/26/2024 2:29 PM RADIOACTIVITY TECHNICIAN Robbie Shearer DO LAB BLOOD ORDERABLES Final Result Performing Organization Address [facility]/ZIP Co de Phone Number [id number] [place] [address] * Blood culture Blood Peripheral (12/26/2024 2:19 PM RADIOACTIVITY TECHNICIAN) Report Final Report: No growth Comment:Testing performed by : [facility], [address] [place]., [address] Blood (Peripheral) 12/26/2024 2:19 PM RADIOACTIVITY TECHNICIAN 12/26/2024 5:25 PM RADIOACTIVITY TECHNICIAN Narrative ABEBE LOYA - 12/31/2024 7:00 AM RADIOACTIVITY TECHNICIAN From a different site than #1. Draw [...] performance characteristics have been verified by the [facility]. For questions about this culture, contact the Microbiology Laboratory at [phone]. Interpretive data was last revised on 24. us Robbie Shearer DO LAB MICROBIOLOGY - GENERAL ORDERABLES Final Result ABEBE LOYA [address] [facility] Department [place] [address] * Blood culture Blood Peripheral (12/26/2024 2:19 PM RADIOACTIVITY TECHNICIAN) Report Final Report: No growth Comment:Testing performed by : [facility], [address] [facility], [place]., [address] Blood (Peripheral) 12/26/2024 2:19 PM RADIOACTIVITY TECHNICIAN 12/26/2024 5:25 PM RADIOACTIVITY TECHNICIAN Narrative ABEBE LOYA - 12/31/2024 7:00 AM RADIOACTIVITY TECHNICIAN Draw Blood cultures before administration of Antibiotics [...] performance characteristics have been verified by the [facility]. For questions about this culture, contact the Microbiology Laboratory at [phone]. Interpretive data was last revised on 24. us Robbie Shearer DO LAB MICROBIOLOGY - GENERAL ORDERABLES Final Result ABEBE LOYA [address] [facility] Department [place] [address] * CT Chest Abdomen Pelvis WO Contrast (12/26/2024 1:58 PM RADIOACTIVITY TECHNICIAN) Anatomical Region Laterality Modality Body N/A Computed Tomogra phy 12/26/2024 2:24 PM RADIOACTIVITY TECHNICIAN Narrative 12/26/2024 2:41 PM RADIOACTIVITY TECHNICIAN EXAM DESCRIPTION: CT CHEST ABDOMEN PELVIS WO [...] renal disease with severe atrophy of the kenaitze kidneys. 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 NS: NS Report ID: [id number] Reading Location: [id number] Procedure Note Rey Rojas MD - 12/26/2024 [...] end-stage renal disease with severe atrophyof the kenaitze kidneys. 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 NS: NS Report ID: [id number] Reading Location: [place] [address] Robbie Shearer DO IMG CT PROCEDURES Final Res ult * XR Chest 1 Vw Portable (if patient condition/safety warrant portable) (12/26/2024 12:25 PM RADIOACTIVITY TECHNICIAN) Anatomical Region Laterality Modality Body, Chest N/A Computed Radiogr aphy 12/26/2024 1:06 PM RADIOACTIVITY TECHNICIAN Narrative 12/26/2024 1:08 PM RADIOACTIVITY TECHNICIAN EXAM DESCRIPTION: XR CHEST 1 VIEW REASON [...] PM - Electronically signed by Kai Lyon M.D., JR: Report ID: [id number] Reading Location: [id number] Procedure Note Kai Lyon MD - 12/26/2024 [...] PM - Electronically signed by Kai Lyon M.D., JR: Report ID: [id number] Reading Location: [id number] us Robbie Shearer DO IMG XR PROCEDURES Final Res ult * (ABNORMAL) Troponin T high-sensitivity series (baseline, 2hr, 4hr, 6hr) (12/26/2024 12:14 PM RADIOACTIVITY TECHNICIAN) Trop T hs 40(H) <=14 ng/L Comment: Interpretive Data For further hscTnT resources including the diagnostic algorithm and an aid in interpretation, copy and paste this link: https://nrl.testcatalog.org/show/hsTrop Current Interpretive Data last revised 2020. Testing performed by: [facility], [address] [place] [address]., [address] Blood 12/26/2024 12:1 4 PM RADIOACTIVITY TECHNICIAN 12/26/2024 12:19 PM RADIOACTIVITY TECHNICIAN Robbie Shearer DO LAB BLOOD ORDERABLES Final Result [facility] [place] [address] [facility] Department [place] [address] * (ABNORMAL) eGFR (12/26/2024 12:14 PM RADIOACTIVITY TECHNICIAN) eGFR 18(L) >=60 mL/min/1. 73 m2 Comment: [...] was last reviewed 2021. Testing performed by: [facility], [address] [place] [address]., [address] Blood 12/26/2024 12:1 4 PM RADIOACTIVITY TECHNICIAN 12/26/2024 12:19 PM RADIOACTIVITY TECHNICIAN us Robbie Shearer DO LAB BLOOD ORDERABLES Final Result ABEBE [address] [facility] Department [place] [address] * Differential, auto (12/26/2024 12:14 PM RADIOACTIVITY TECHNICIAN) Neutrophil abs 5.3 1.5 - 6.5 K/cumm Comment:Testing performed by : [address] [address] Imm gran abs 0.1 0.0 - 0.1 K/cumm ABEBE Comment:Testing performed by : [address] [address] Lymphocyte abs 1.4 0.8 - 3.3 K/cumm ABEBE Comment:Testing performed by : [address] [address] Monocyte abs 0.5 0.2 - 0.8 K/cumm ABEBE Comment:Testing performed by : [address] [address] Eosinophil abs 0.3 0.0 - 0.5 K/cumm ABEBE Comment:Testing performed by : [address] [address] Basophil abs 0.0 0.0 - 0.1 K/cumm ABEBE Comment:Testing performed by : [address] [address] Neutrophil pct 70.0 % ABEBE Comment: Interpretive Data Percent cell count reference ranges are not reported, since discordance with absolute values may lead to misinterpretation of CBC data. Current Interpretive Data was last revised on 2018. Testing performed by: [address] [address] Imm gran pct 0.9 % ABEBE Comment: Interpretive Data Percent cell count reference ranges are not reported, since discordance with absolute values may lead to misinterpretation of CBC data. Current Interpretive Data was last revised on 2018. Testing performed by: [address] [address] Lymphocyte pct 17.9 % [facility] [place] Comment: Interpretive Data Percent cell count reference ranges are not reported, since discordance with absolute values may lead to misinterpretation of CBC data. Current Interpretive Data was last revised on 2018. Testing performed by: [address] [address] Monocyte pct 7.0 % [facility] Comment: Interpretive Data Percent cell count reference ranges are not reported, since discordance with absolute values may lead to misinterpretation of CBC data. Current Interpretive Data was last revised on 2018. Testing performed by: [address] [address] Eosinophil pct 4.1 % [facility] Comment: Interpretive Data Percent cell count reference ranges are not reported, since discordance with absolute values may lead to misinterpretation of CBC data. Current Interpretive Data was last revised on 2018. Testing performed by: [address] [address] Basophil pct 0.1 % [facility] Comment: Interpretive Data Percent cell count reference ranges are not reported, since discordance with absolute values may lead to misinterpretation of CBC data. Current Interpretive Data was last revised on 2018. Testing performed by: [address] [address] Blood 12/26/2024 12:1 4 PM RADIOACTIVITY TECHNICIAN 12/26/2024 12:19 PM RADIOACTIVITY TECHNICIAN us Robbie Shearer DO LAB BLOOD ORDERABLES Final Result ABEBE LOYA [address] [facility] Department [place] [address] * (ABNORMAL) Pro B-type natriuretic peptide (12/26/2024 12:14 PM RADIOACTIVITY TECHNICIAN) NT-proBNP 17,285(H) <=450 pg/mL Comment: Interpretive Comments: [...] Last Revised Date: 2018. Testing performed by: [address] [address] Blood 12/26/2024 12:1 4 PM RADIOACTIVITY TECHNICIAN 12/26/2024 12:19 PM RADIOACTIVITY TECHNICIAN us Robbie Shearer DO LAB BLOOD ORDERABLES Final Result NINADAS [address] [facility] Department [place] [address] * (ABNORMAL) CBC with auto differential (12/26/2024 12:14 PM RADIOACTIVITY TECHNICIAN) [facility] WBC 7.5 3.8 - 9.9 K/cumm Comment:Testing performed by : [address] [address] Hgb 9.9(L) 11.9 - 15.5 g/dL ABEBE Comment:Testing performed by : [address] [address] Hct 30.9(L) 35.6 - 45.5 % ABEBE Comment:Testing performed by : [address] [address] Plt 146(L) 150 - 400 K/cumm ABEBE Comment:Testing performed by : [address] [address] MPV 9.2 9.1 - 12.3 fL ABEBE Comment:Testing performed by : [address] [address] RBC 3.36(L) 3.90 - 5.20 M/cumm ABEBE Comment:Testing performed by : [address] [address] MCV 92.0 81.3 - 96.4 fL ABEBE Comment:Testing performed by : [address] [address] MCH 29.5 27.1 - 33.3 pg CERRITCHIE Comment:Testing performed by : [address] [address] MCHC 32.0(L) 32.3 - 35.7 g/dL ABEBE Comment:Testing performed by : [address] [address] RDW CV 14.4 11.1 - 14.9 % ABEBE Comment:Testing performed by : [address] [address] RDW SD 49.0(H) 35.7 - 48.1 fL ABEBE Comment:Testing performed by : [address] [address] NRBC abs 0.00 0.00 - 0.01 K/cumm ABEBE Comment:Testing performed by : [address] [address] Blood 12/26/2024 12:1 4 PM RADIOACTIVITY TECHNICIAN 12/26/2024 12:19 PM RADIOACTIVITY TECHNICIAN us Robbie Shearer DO LAB BLOOD ORDERABLES Final Result ABEBE LOYA [address] [facility] Department [place] [address] * (ABNORMAL) Comprehensive metabolic panel (12/26/2024 12:14 PM RADIOACTIVITY TECHNICIAN) Sodium 123(L) 135 - 145 mmol/L Comment:Testing performed by : [address] [address] Potassium, pl 5.0(H) 3.3 - 4.9 mmol/L ABEBE Comment:Testing performed by : [address] [address] Chloride 93(L) 97 - 110 mmol/L ABEBE Comment:Testing performed by : [address] [address] CO2 18(L) 22 - 32 mmol/L ABEBE Comment:Testing performed by : [address] [address] Anion gap 12 2 - 15 mmol/L ABEBE Comment:Testing performed by : [address] [address] BUN 85(H) 6 - 25 mg/dL ABEBE Comment:Testing performed by : [address] [address] Creatinine 2.63(H) 0.60 - 1.10 mg/dL ABEBE Comment:Testing performed by : [address] [address] Glucose 130 70 - 199 mg/dL ABEBE [...] was last revised 2022. Testing performed by: [address] [address] Calcium 9.1 8.5 - 10.3 mg/dL ABEBE Comment:Testing performed by : [address] [address] Bilirubin, total 0.4 0.1 - 1.2 mg/dL ABEBE Comment:Testing performed by : [address] [address] Protein, pl 6.8 6.5 - 8.5 g/dL ABEBE Comment:Testing performed by : [address] [address] Albumin 3.6 3.5 - 5.0 g/dL ABEBE Comment:Testing performed by : [address] [address] Alk phos 50 40 - 130 Units/L ABEBE Comment:Testing performed by : [address] [address] ALT 9 7 - 45 Units/L [facility]:Testing performed by : [address] [address] AST 18 10 - 45 Units/L ABEBE Comment:Testing performed by : [address] [address] Blood 12/26/2024 12:1 4 PM RADIOACTIVITY TECHNICIAN 12/26/2024 12:19 PM RADIOACTIVITY TECHNICIAN us Robbie Shearer DO LAB BLOOD ORDERABLES Final Result ABEBE [address] [facility] Department [place] [address] * ECG 12 lead (12/26/2024 12:13 PM RADIOACTIVITY TECHNICIAN) Ventricular Rate EKG/Min 58 BPM [facility] Atrial Rate 58 BPM [facility] NM-Interval (MSEC) 154 ms [facility] QRS-Interval (MSEC) 106 ms [facility] QT-Interval (MSEC) 440 ms [facility] QTc 431 ms [facility] P Reader 14 degrees [facility] R Reader -37 degrees [facility] T Reader 19 degrees [facility] Diagnosis Sinus bradycardia with sinus arrhythmia Left axis deviation Abnormal ECG Confirmed by SOCRATES SPENCER M.D. ([id number]) on 12/26/2024 1:44:56 PM [facility] 12/26/2024 12:1 3 PM RADIOACTIVITY TECHNICIAN 12/26/2024 1:44 PM RADIOACTIVITY TECHNICIAN Robbie Shearer DO ECG ORDERABLES Final Resul t Performing Organization Address City/[facility] Co de Phone Number [facility] * Tacrolimus, Highly Sensitive, LC/MS/MS (12/25/2024 10:27 AM RADIOACTIVITY TECHNICIAN) Tacrolimus, Highly Sensitive, LC/MS/MS 8.6 mcg/L [facility] Comment: No definitive therapeutic or toxic ranges have been established. Optimal blood drug levels are influenced by type of transplant, patient response, time post- transplant, co-administration of other drugs, and drug formulation. The following trough range is a suggested guideline: 5.0-20.0 mcg/L. 12/25/2024 10:2 7 AM RADIOACTIVITY TECHNICIAN 12/25/2024 10:27 AM RADIOACTIVITY TECHNICIAN Narrative [facility] - 12/26/2024 3:00 PM RADIOACTIVITY TECHNICIAN RAW FASTING:YES FASTING: YES Sarahi Turner MD LAB BLOOD ORDERABLES Final Resu lt [facility] [address] [place] [address] * COPY(IES) SENT TO: (12/25/2024 10:27 AM RADIOACTIVITY TECHNICIAN) COPY(IES) SENT TO: [facility] Comment: [facility]NEY - COPY TO [facility] [address] [place] [address] 12/25/2024 10:2 7 AM RADIOACTIVITY TECHNICIAN 12/25/2024 10:27 AM RADIOACTIVITY TECHNICIAN Narrative [facility] - 12/26/2024 3:00 PM RADIOACTIVITY TECHNICIAN RAW FASTING:YES FASTING: YES us Sarahi Turner MD LAB BLOOD ORDERABLES Final Resu lt [facility] * (ABNORMAL) CBC with auto differential (12/25/2024 10:27 AM RADIOACTIVITY TECHNICIAN) WBC 7.0 3.8 - 10.8 Thousand/u L [...] Platelets 156 140 - 400 Thousand/u L [facility] MPV 9.8 7.5 - 12.5 fL [facility] Neutrophils, abs 3,983 1,500 - 7,800 cells/uL [facility] Lymphocytes, abs 1,953 850 - 3,900 cells/uL [facility] Monocyte abs 714 200 - 950 cells/uL [facility] Eosinophils, abs 322 15 - 500 cells/uL [facility] Basophils, abs 28 0 - 200 cells/uL [facility] Neutrophils 56.9 % [facility] Lymphocyte pct 27.9 % [facility] Monocytes 10.2 % [facility] Eosinophils 4.6 % [facility] Basophils 0.4 % [facility] 12/25/2024 10:2 7 AM RADIOACTIVITY TECHNICIAN 12/25/2024 10:27 AM RADIOACTIVITY TECHNICIAN Narrative [facility] - 12/26/2024 3:00 PM RADIOACTIVITY TECHNICIAN RAW FASTING:YES FASTING: YES Sarahi Turner MD LAB BLOOD ORDERABLES Final Resu lt Performing Organization Address City/[facility]/ZIP Co de Phone Number WAYNE [facility] [address] [place] [address] * (ABNORMAL) Renal function panel (12/25/2024 10:27 AM RADIOACTIVITY TECHNICIAN) [facility] Glucose 90 65 - 99 mg/dL [facility] Comment: Fasting reference interval BUN 84(H) 7 - 25 mg/dL [facility] Creatinine 2.52(H) 0.60 - 1.00 mg/dL [facility] eGFR 19(L) > OR = 60 mL/min/1.7 3m2 [facility] BUN/creat ratio 33(H) 6 - 22 (calc) [facility] Sodium 126(L) 135 - 146 mmol/L [facility] Potassium, pl 4.5 3.5 - 5.3 mmol/L [facility] Chloride 97(L) 98 - 110 mmol/L [facility] CO2 20 20 - 32 mmol/L [facility] Calcium 8.3(L) 8.6 - 10.4 mg/dL [facility] Phosphorus, sr 4.2 2.1 - 4.3 mg/dL [facility] Albumin 3.5(L) 3.6 - 5.1 g/dL [facility] 12/25/2024 10:2 7 AM RADIOACTIVITY TECHNICIAN 12/25/2024 10:27 AM RADIOACTIVITY TECHNICIAN Narrative [facility] - 12/26/2024 3:00 PM RADIOACTIVITY TECHNICIAN RAW FASTING:YES FASTING: YES Sarahi Turner MD LAB BLOOD ORDERABLES Final Resu lt Performing Organization Address City/[facility]/ZIP Co de Phone Number WAYNE Moran [facility] [address] [place] [address] * COPY(IES) SENT TO: (12/23/2024 1:47 PM RADIOACTIVITY TECHNICIAN) COPY(IES) SENT TO: [facility] Comment: [facility] - COPY TO [facility] [address] [place] [address] 12/23/2024 1:47 PM RADIOACTIVITY TECHNICIAN 12/23/2024 1:52 PM RADIOACTIVITY TECHNICIAN Narrative [facility] - 12/25/2024 1:15 PM RADIOACTIVITY TECHNICIAN FASTING:NO FASTING: NO Stephanie Garcia MD LAB BLOOD ORDERABLE S Final Result [facility] * REFLEXIVE URINE CULTURE (12/23/2024 1:47 PM RADIOACTIVITY TECHNICIAN) Urine culture [facility] Comment:CULTURE INDICATED - RESULTS TO FOLLOW 12/23/2024 1:47 PM RADIOACTIVITY TECHNICIAN 12/23/2024 1:52 PM RADIOACTIVITY TECHNICIAN Narrative [facility] - 12/25/2024 1:15 PM RADIOACTIVITY TECHNICIAN FASTING:NO FASTING: NO Stephanie Garcia MD LAB MICROBIOLOGY - GENERAL ORDERABLES Final Result Performing Organization Address City/[facility]/ZIP Co de Phone Number [facility]holder [facility] [address] [place] [address] * (ABNORMAL) Urinalysis reflex to microscopic and culture Urine, clean voided (12/23/2024 1:47 PM RADIOACTIVITY TECHNICIAN) Color, ur YELLOW YELLOW [facility] Appearance, ur CLOUDY(A) CLEAR [facility]holder [facility] Specific gravity 1.008 1.001 - 1.035 [facility] pH, ur < OR = 5.0 5.0 - 8.0 [facility] Glucose, ur NEGATIVE NEGATIVE [facility] Bilirubin, ur NEGATIVE NEGATIVE [facility] Ketones, ur NEGATIVE NEGATIVE [facility] Blood, ur 1+(A) NEGATIVE [facility] Protein, ur, quant 1+(A) NEGATIVE [facility] Nitrites, ur NEGATIVE NEGATIVE [facility] Leukocyte esterase, ur 3+(A) NEGATIVE [facility] WBC, ur > OR = 60(A) < OR = 5 /HPF [facility] RBC, ur NONE SEEN < OR = 2 /HPF [facility] Epithelial cells, squamous, ur 0-5 < OR = 5 /HPF [facility] Bacteria, ur, quant FEW(A) NONE SEEN /HPF [facility] Hyaline cast NONE SEEN NONE SEEN /LPF [facility] Note [facility] Comment: This urine was analyzed for the presence of WBC, RBC, bacteria, casts, and other formed elements. Only those elements seen were reported. Urine, clean voided 12/23/2024 1:47 PM RADIOACTIVITY TECHNICIAN 12/23/2024 1:52 PM RADIOACTIVITY TECHNICIAN Narrative [facility] - 12/25/2024 1:15 PM RADIOACTIVITY TECHNICIAN FASTING:NO FASTING: NO Stephanie Garcia MD LAB MICROBIOLOGY - GENERAL ORDERABLES Final Result Performing Organization Address [facility]/State/[facility] Co de Phone Number [facility] [address] [place] [address] * (ABNORMAL) Urine culture (12/23/2024 1:47 PM RADIOACTIVITY TECHNICIAN) Urine culture (A) [facility] Comment: CULTURE, URINE, ROUTINE Micro Number: [id number] Test Status: Final Specimen Source: Urine Specimen [...] = See Therapy Comments 12/23/2024 1:47 PM RADIOACTIVITY TECHNICIAN 12/23/2024 1:52 PM RADIOACTIVITY TECHNICIAN Narrative [facility] - 12/25/2024 1:15 PM RADIOACTIVITY TECHNICIAN FASTING:NO FASTING: NO Stephanie Garcia MD LAB MICROBIOLOGY - GENERAL ORDERABLES Final Result [facility] [address] [place] [address] * Dexa TBS Axial Skeleton Bone Density 1 or more sites (09/04/2024 2:22 PM CDT) Anatomical Region Laterality Modality Wrist, Body N/A Radiographic Aarti ging Narrative 09/04/2024 4:23 PM CDT Patient Name: Negrita Lincoln Date of : 1950 Date of scan: 09/04/2024 Bone mineral density was performed on a [employer] Discovery Densitometer. Based on machine cross-calibration and [...] density scan were prepared by Emma Stark) EMILY who is accredited by the International Society of Clinical Densitometry. The overall patient assessment and scan interpretation were performed by Jojo Crocker M.D. who is certified by the International Society of Clinical Densitometry. [id number] us Becky Crocker MD IM DXA PROCEDURES Final Resu lt * Hepatitis panel, acute (05/24/2022 11:43 AM CDT) Hep A IgM Nonreactive Nonreactive [facility] HICKS Comment: Interpretive Data: If Hep A IgM Ab is reported as Equivocal, a new sample should be drawn in two weeks for testing. Current interpretive data was last revised on 20. Hep B core IgM Nonreactive Nonreactive [facility] Comment: Interpretive Data If HepB Core IgM Ab is reported as Equivocal, a new sample should be drawn in two weeks for testing. Current interpretive data was last revised on 20. Hep C Ab Nonreactive Nonreactive [facility] Comment:Antibodies to HCV no t detected. Does NOT exclude the possibility of recent exposure to HCV. HepBsAg Nonreactive Nonreactive [facility] Blood 05/24/2022 11:4 3 AM CDT 05/24/2022 12:09 PM CDT us Tessa Vieira MD LAB MICROBIOLOGY - GENERAL ORDER FILI Edited Result - Final ABEBE [facility] Department [place] [address] from Last 3 Months or Most Recently Relevant to Health Maintenance Insurance [facility] MEDICARE ADVANTAGE MEDICARE [employer] HEALTHCARE MEDICARE [employer] [facility] HEALTHCARE UHC MEDICARE ADVANTAGE [facility] MEDICARE ADVANTAGE [facility] Advance Directives For more information, please contact: [phone] * Full Code (Latest Code Status on [...] 6:02 PM 09/06/2018 6:19 PM Care Teams [employer] Relationship Specialty Start Date End Date Parent, Nidhi E., PA [address] [facility] [address] [place] [address] PCP - General Family Practice 02/17/23 Lo Arenas, ERIKA [address] [facility] [address] [place] [address] Registered Nurse 04/10/18 Chadwick Benavides MD [address] [place] [address] [address] [place] [address] Referring Physician Cardiovascular Disease 04/19/23 Bryan English MD [address] [facility] [address] [place] [address] Consulting Physician Cardiology 02/03/25
[2025-03-13 11:06] LABS: Basophils Absolute Auto 0.03 K/mm3 (0.00-0.10); Basophils Percent Auto 0.6 % (0.0-1.0); Eosinophils Absolute Auto 0.25 K/mm3 (0.02-0.50); Eosinophils Percent Auto 4.6 % (1.0-6.0); Hematocrit 28.5 % (35.0-42.0); Hemoglobin 8.7 g/dL (11.7-13.8); Immature Granulocyte Absolute 0.02 K/mm3 (0.00-0.00); Immature Granulocyte Percent A 0.4 % (0.0-0.0); Lymphocytes Absolute Auto 1.79 K/mm3 (1.10-4.50); Lymphocytes Percent Auto 33.2 % (18.0-42.0); Mean Corpuscular HGB Conc 30.5 g/dL (32-36); Mean Corpuscular Hemoglobin 30.6 pg (27.0-31.0); Mean Corpuscular Volume 100.4 fL (78.0-102.0); Mean Platelet Volume 9.5 fl (9.2-11.8); Monocytes Absolute Auto 0.59 K/mm3 (0.10-0.90); Monocytes Percent Auto 10.9 % (2.0-11.0); Neutrophils Absolute Auto 2.71 K/mm3 (1.70-7.20); Neutrophils Percent Auto 50.3 % (50.0-70.0); Platelet Count Result 109 K/mm3 (150-420); Red Blood Count 2.84 M/mm3 (4.20-5.40); Red Cell Distribution Width 14.3 % (11.6-14.4); White Blood Count 5.4 K/mm3 (4.8-10.8)
--- OUTSIDE RECORDS SUMMARY | 2025-03-13 11:06 | XMS_ITS | Encounter Summary ---
Author Organization [facility] Address [address] [place] [address] Phone Care Team Providers Care Electron Beam Operator Name Role Phone Cierra Robison RN Unavailable [phone] Lo Arenas RN Unavailable Bunny Hoyos MD Unavailable [phone] Nidhi Nichols Primary Care Provider [phone] Chadwick Benavides MD Unavailable [phone] Bryan English MD Unavailable [phone] Encounter Details Date Type Department Care Team (Late st Contact Info) Description 02/08/2018 Orders Only [facility] Provider, MD Neli [address] [place] [address] Social History Tobacco Use Types Packs/Day Years Used Date Smoking Tobacco: Never Comments Unknown Sex and Gender Information Value Date Recorded Sex Assigned at Not on file Legal Sex Female 11:06 AM PRINCIPAL QUALITY ENGINEER Gender Identity Female 05/12/2021 9:18 PM CDT Sexual Orientation Straight 02/10/2020 9: 45 AM CDT documented as of this encounter Plan of Treatment Not on file documented as of this encounter Procedures Procedure Name Priority Date/Time Associated Diagnosis Comments CARDIOLOGY REPORT 02/08/2018 documented in this encounter Results * CARDIOLOGY REPORT (02/08/2018) Anatomical Region Laterality Modality Other Narrative 02/08/2018 Ordered by an unspecified provider. us Historical Provider [facility] [place] Final Result documented in this encounter Visit Diagnoses Not on filedocumented in this encounter Additional Health Concerns Infection Onset Date Last Indicated Resolved Time COVID: Suspected 12/26/2024 12/26/2024 12/26/2024 7:03 PM PRINCIPAL QUALITY ENGINEER Ring Surveillance Comment:01/12/2025- 60176 C. Auris ring surveillance. Tamie Koch 01/12/2025 01/12/2025 01/25/2025 2:00 PM C DT documented as of this encounter Care Teams Electron Beam Operator Relationship Specialty Start Date End Date ParentNidhi PA [address] [facility] [address] [place] [address] PCP - General Family Practice 02/17/23 Cierra Robison RN [address] [facility] [address] [place] [address] Forestry Aid Technician 04/03/18 8 Lo Arenas RN [address] [facility] [address] [place] [address] Registered Nurse 04/10/18 Bunny Hoyos MD [address] [place] [address] Referring Physician General Surgery 03/11/21 11/15/23 Chadwick Benavides MD [address] [place] [address] DR [facility] [address] [place] [address] Referring Physician Cardiovascular Disease 04/19/23 Bryan English MD [address] [facility] [address] [place] [address] Consulting Physician Cardiology 02/03/25 documented as of this encounter
--- OUTSIDE RECORDS SUMMARY | 2025-03-13 11:06 | XMS_ITS | Encounter Summary ---
Author Organization [facility] Address [address] [place] [address] Phone Care Team Providers Care Cook Fish Eggs Name Role Phone Cierra Robison RN Unavailable [phone] Lo Arenas RN Unavailable Bunny Hoyos MD Unavailable [phone] Nidhi Nichols Primary Care Provider [phone] Chadwick Benavides MD Unavailable [phone] Bryan English MD Unavailable [phone] Encounter Details Date Type Department Care Team (Late st Contact Info) Description 06/05/2014 Orders Only [facility] Provider, MD Neli [address] [place] [address] Social History Tobacco Use Types Packs/Day Years Used Date Smoking Tobacco: Never Assessed Comments Unknown Sex and Gender Information Value Date Recorded Sex Assigned at Not on file Legal Sex Female 11:06 AM DISSOLVER OPERATOR Gender Identity Female 05/12/2021 9:18 PM CDT Sexual Orientation Straight 02/10/2020 9: 45 AM CDT documented as of this encounter Plan of Treatment Not on file documented as of this encounter Procedures Procedure Name Priority Date/Time Associated Diagnosis Comments CARDIOLOGY REPORT 06/05/2014 documented in this encounter Results * CARDIOLOGY REPORT (06/05/2014) Anatomical Region Laterality Modality Other Narrative 06/05/2014 Ordered by an unspecified provider. us Historical Provider [facility] [place] Final Result documented in this encounter Visit Diagnoses Not on filedocumented in this encounter Additional Health Concerns Infection Onset Date Last Indicated Resolved Time COVID: Suspected 12/26/2024 12/26/2024 12/26/2024 7:03 PM DISSOLVER OPERATOR Ring Surveillance Comment:01/12/2025- [id number] C. Auris ring surveillance. Tamie Koch 01/12/2025 01/12/2025 01/25/2025 2:00 PM C DT documented as of this encounter Care Teams Cook Fish Eggs Relationship Specialty Start Date End Date ParentNidhi PA [address] [facility] [address] [place] [address] PCP - General Family Practice 02/17/23 Cierra Robison RN [address] [facility] [address] [place] [address] Textile Knitter 04/03/18 8 Lo Arenas RN [address] [facility] [address] [place] [address] Registered Nurse 04/10/18 Bunny Hoyos MD [address] [place] [address] Referring Physician General Surgery 03/11/21 11/15/23 Chadwick Benavides MD [address] [place] [address] DR [facility] [address] [place] [address] Referring Physician Cardiovascular Disease 04/19/23 Bryan English MD [address] [facility] [address] [place] [address] Consulting Physician Cardiology 02/03/25 documented as of this encounter
--- OUTSIDE RECORDS SUMMARY | 2025-03-13 11:06 | XMS_ITS | Encounter Summary ---
Author Organization [facility] Address [address] [place] [address] Phone Care Team Providers Care Cloth Classer Name Role Phone Cierra Robison RN Unavailable [phone] Lo Arenas RN Unavailable [phone] Bunny Hoyos MD Unavailable [phone] Nidhi Nichols Primary Care Provider [phone] Chadwick Benavides MD Unavailable [phone] Bryan English MD Unavailable [phone] Encounter Details Date Type Department Care Team (Late st Contact Info) Description 12/31/2015 Orders Only [facility] Provider, MD Neli [address] [place] [address] Social History Tobacco Use Types Packs/Day Years Used Date Smoking Tobacco: Never Assessed Comments Unknown Sex and Gender Information Value Date Recorded Sex Assigned at Not on file Legal Sex Female 11:06 AM SUPERCALENDER OPERATOR Gender Identity Female 05/12/2021 9:18 PM CDT Sexual Orientation Straight 02/10/2020 9: 45 AM CDT documented as of this encounter Plan of Treatment Not on file documented as of this encounter Procedures Procedure Name Priority Date/Time Associated Diagnosis Comments CARDIOLOGY REPORT 12/31/2015 documented in this encounter Results * CARDIOLOGY REPORT (12/31/2015) Anatomical Region Laterality Modality Other Narrative 12/31/2015 Ordered by an unspecified provider. us Historical Provider [facility] [place] Final Result documented in this encounter Visit Diagnoses Not on filedocumented in this encounter Additional Health Concerns Infection Onset Date Last Indicated Resolved Time COVID: Suspected 12/26/2024 12/26/2024 12/26/2024 7:03 PM SUPERCALENDER OPERATOR Ring Surveillance Comment:01/12/2025- 45514 C. Auris ring surveillance. Tamie Koch 01/12/2025 01/12/2025 01/25/2025 2:00 PM C DT documented as of this encounter Care Teams Cloth Classer Relationship Specialty Start Date End Date ParentNidhi PA [address] [facility] [address] [place] [address] PCP - General Family Practice 02/17/23 Cierra Robison RN [address] [facility] [address] [place] [address] Metal Drill Press Operator 04/03/18 8 Lo Arenas RN [address] [facility] [address] [place] [address] Registered Nurse 04/10/18 Bunny Hoyos MD [address] [place] [address] Referring Physician General Surgery 03/11/21 11/15/23 Chadwick Benavides MD [address] [place] [address] DR [facility] [address] [place] [address] Referring Physician Cardiovascular Disease 04/19/23 Bryan English MD [address] [facility] [address] [place] [address] Consulting Physician Cardiology 02/03/25 documented as of this encounter
--- OUTSIDE RECORDS SUMMARY | 2025-03-13 11:06 | XMS_ITS | Clinical Summary ---
Author Organization [facility] Address [address] [place] [address] Care Team Providers Care Debate Director Name Role Phone Argentina Hamm MD Primary Care Provider [phone] Allergies Active Allergy Reactions Criticality Noted Date Comments Atorvastatin Rash Medium 05/06/20202009-switched to pravastatin, can tolerate Codeine Nausea Only 05/04/2020 Quinine Other (see comment) 05/04/2020 Weakness, flu-like symptoms Sulfamethoxazole-Trimet hoprim Itching Low 09/03/2018 Medications allopurinol 100 MG tablet Take 100 mg by mouth daily. 08/20/2019 Active carvedilol 3.125 MG tablet Take 3.125 mg by mouth 2 (two) times a day. 12/25/2019 Active gabapentin 100 MG capsule Take 100 mg by mouth 3 (three) times daily. 12/25/2019 Active predniSONE 5 mg tablet Take 5 mg by mouth daily. 11/20/2019 Active rosuvastatin 10 MG tablet Take 1 tablet by mouth nightly. 12/25/2019 Active zolpidem 10 MG tablet Take 1 tablet by mouth nightly. 09/30/2019 Active tacrolimus 1 MG capsuleIndicati ons:2 tabs in the morning and 1 tab at night Take 1 mg by mouth 2 (two) times daily. Indications: 2 tabs in the morning and 1 tab at night Active Mycophenolate Sodium (MYCOPHENOLIC ACID OR)Indications: takes the DR formula (extended release) Take 360 mg by mouth nightly. Indications: takes the DR formula (extended release) Active Cholecalciferol (VITAMIN D3) 50 MCG (1999 UT) Tab Take 1 tablet by mouth daily. Active aspirin EC (ASPIRIN EC) 81 MG tablet Take 81 mg by mouth daily. Active Encounters Date Type Department Care Team Description 12/29/2024 Scan [facility] Scanned, Doc [facility] 12/28/2024 Scan [facility] Scanned, Doc [facility] from Last 3 Months Immunizations Immunization Administration Dates Next Due Tdap (Boostrix) 09/14/2022() Family History Medical History Relation Comments Heart Disease Father [place] Father CHF Mother Depression Mother Diabetes Mother Heart Disease Mother Stroke Mother Relation Status Comments Father (Age 55) mi Maternal Grandfather (Age 109) Mother (Age 62) chf Son 1 Alive Son 2 Alive Son 3 Alive Social History Tobacco Use Types Packs/Day Years Used Date Smoking Tobacco: Never Smokeless Tobacco: Never Alcohol Use Standard Drinks/Week Comments Not Currently 0 (1 standard drink = 0.6 oz pur e alcohol) Comments No Sex and Gender Information Value Date Recorded Sex Assigned at Not on file Legal Sex Female 7:37 PM CDT Gender Identity Not on file Sexual Orientation Not on file Last Filed Vital Signs Vital Sign Reading Time Taken Comments Blood Pressure 189/80 09/14/2022 4:54 PM REFINISH TECHNICIAN Pulse 67 09/14/2022 4:54 PM REFINISH TECHNICIAN Temperature 37.1 C (98.7 F) 09/14/2022 4:54 PM REFINISH TECHNICIAN Respiratory Rate 15 09/14/2022 4:54 PM REFINISH TECHNICIAN Oxygen Saturation 98% 09/14/2022 4:54 PM REFINISH TECHNICIAN Inhaled Oxygen Concentration - - Weight 64.8 kg (142 lb 13.7 oz) 09/14/2022 4:54 PM REFINISH TECHNICIAN Height 170.2 cm (5' 7 ) 09/14/2022 4:54 PM REFINISH TECHNICIAN Body Mass Index 22.37 09/14/2022 4:54 PM REFINISH TECHNICIAN Plan of Treatment Health Maintenance Due Date Last Done Comments Colorectal Cancer Screening Colonoscopy (10 Years) 1950 Hepatitis C 1967 Zoster Vaccines (1 of 2) 1968 Annual Medicare Wellness Visit 2014 Pneumococcal Vaccine: 50+ Years (3 of 3 - PPSV23, PCV20 or PCV21) 10/06/2017 08/11/2017, 08/10/2017, 09/07/1998 COVID-19 Vaccine ( season) 2024 07/06/2021, 07/06/2021, 01/25/2021, Additional history exists PHQ-2 (Physician [place]) 11/06/2024 RSV Immunization or 60+ Years (1 - 1-dose 75+ series) 2024 DTaP, Tdap and Td Vaccines (3 - Td or Tdap) 05/18/2031 05/18/2021, 12/28/2007 Dexa Scan (General) Completed 07/05/2021, 06/29/2021, 05/18/2021 Meningococcal B Vaccine Aged Out No l onger eligible based on patient's age to complete this topic Meningococcal Vaccine Aged Out No dwight melvin eligible based on patient's age to complete this topic RSV Immunizations Under 20 Months Aged Out No longer eligible based on patient's age to complete this topic Procedures Procedure Name Priority Date/Time Associated Diagnosis Comments BONE DENSITY/DEXA Routine 07/05/2021 9:0 6 AM CDT Asymptomatic menopausal state from Last 3 Months or Most Recently Relevant to Health Maintenance Results * BONE DENSITY/DEXA (07/05/2021 9:06 AM CDT) Anatomical Region Laterality Modality Bone Mammography 07/05/2021 9:30 AM CDT Impressions 07/05/2021 9:33 AM CDT Impression: BMD measured at both total hips and left femoral neck at WHO category level of osteoporosis. BMD measured at right femoral neck at level of osteopenia. BMD measured at AP lumbar spine at level of normal. Referred By: ARGENTINA HAMM Interpreted By: Omid Mccray MD, 07/05/2021 9:30 AM Narrative 07/05/2021 9:33 AM CDT Examination: DEXA Bone densitometry EXAM DATE: 07/05/2021 8:45 AM Clinical history: Postmenopausal. Calcium supplementation. Vitamin D use. Prior hysterectomy. Technique: DEXA bone minimal density evaluation was performed in the AP projection over the lumbar spine and over both hips in the AP projection utilizing standard imaging techniques. Assessment: The BMD measured at the AP spine L1-L4 is 1.098 g/cm? with a T-score of 0.5 and a Z-Score of 2.7. Bone density is up to 10% below young normal. This patient is considered normal according to the World Health Organization (WHO) criteria. Fracture risk is low. Scoliosis. The BMD measured at the femur total left is 0.537 g/cm? with a T-score of -3.3 and a Z-Score of -1.7. This patient is considered osteoporotic according to the world health organizations (WHO) criteria. Fracture risk is high. Pharmacological treatment, if not already prescribed should be considered. If pharmacological treatment is utilized, a followup bone density chest is recommended in one year to monitor response to therapy. The BMD measured at the left femoral neck is 0.496 g/sq cm resulting in a T score of -3.2 and a Z score of -1.3, values at the WHO category level of osteoporosis. The BMD measured at the femur total right is 0.551 g/cm? with a T-score of -3.2 and aZ-Score of -1.6. This patient is considered osteoporotic according to the world health organizations (WHO) criteria. Fracture risk is high. Pharmacological treatment, if not already prescribed should be considered. If pharmacological treatment is utilized, a followup bone density chest is recommended in one year to monitor response to therapy. The BMD measured at the right femoral neck is 0.578 g/sq cm resulting in a T score of -2.4 and a Z score of -0.6, values at the WHO category level of osteopenia. FRAX results: 10 year probability of major osteoporotic fracture 17% and of hip fracture 6.3%. Recommendations: All patients should ensure an adequate intake of dietary calcium and vitamin D. The NOF recommend adults under the age of 50 need 1000 mg of calcium and 400-800 IU of vitamin D daily. Effective therapy for the prevention and treatment of osteoporosis include biphosphonates. Follow-up: People with diagnosed cases of osteoporosis or at high risk for fracture should have regular bone mineral density test. For patients eligible for Medicare, routine testing is allowed once every 2 years. Testing frequency can be increased to one year for patients who have rapidly progressing disease, those who are receiving or discontinuing medical therapy to restore bone mass, or have additional risk factors. Based on these results, a followup exam is recommended in no earlier than 2 years for routine follow-up. As early as 1 year to assess efficacy of new medication therapy for treatment of osteoporosis. Procedure Note Omid Mccray MD - 07/05/2021 Examination: DEXA Bone densitometry EXAM DATE: 07/05/2021 8:45 AM Clinical history: Postmenopausal. Calcium supplementation. Vitamin D use.Prior hysterectomy. Technique: DEXA bone minimal density evaluation was performed in the APprojection over the lumbar spine and over both hips in the AP projectionutilizing standard imaging techniques. Assessment: The BMD measured at the AP spine L1-L4 is 1.098 g/cm? with a T-score of0.5 and a Z-Score of 2.7. Bone density is up to 10% below young normal.This patient is considered normal according to the World HealthOrganization (WHO) criteria. Fracture risk is low. Scoliosis. The BMD measured at the femur total left is 0.537 g/cm? with a T-score of-3.3 and a Z-Score of -1.7. This patient is considered osteoporoticaccording to the world health organizations (WHO) criteria. Fracture riskis high. Pharmacological treatment, if not already prescribed should beconsidered. If pharmacological treatment is utilized, a followup bonedensity chest is recommended in one year to monitor response to therapy. The BMD measured at the left femoral neck is 0.496 g/sq cm resulting in aT score of -3.2 and a Z score of -1.3, values at the WHO category level ofosteoporosis. The BMD measured at the femur total right is 0.551 g/cm? with a T-score of-3.2 and aZ-Score of -1.6. This patient is considered osteoporoticaccording to the world health organizations (WHO) criteria. Fracture riskis high. Pharmacological treatment, if not already prescribed should beconsidered. If pharmacological treatment is utilized, a followup bonedensity chest is recommended in one year to monitor response to therapy. The BMD measured at the right femoral neck is 0.578 g/sq cm resulting in aT score of -2.4 and a Z score of -0.6, values at the WHO category level ofosteopenia. FRAX results: 10 year probability of major osteoporotic fracture 17% andof hip fracture 6.3%. Recommendations: All patients should ensure an adequate intake of dietary calcium andvitamin D. The NOF recommend adults under the age of 50 need 1000 mg ofcalcium and 400-800 IU of vitamin D daily. Effective therapy for theprevention and treatment of osteoporosis include biphosphonates. Follow-up: People with diagnosed cases of osteoporosis or at high risk for fractureshould have regular bone mineral density test. For patients eligible forMedicare, routine testing is allowed once every 2 years. Testing frequencycan be increased to one year for patients who have rapidly progressingdisease, those who are receiving or discontinuing medical therapy torestore bone mass, or have additional risk factors. Based on these results, a followup exam is recommended in no earlier than2 years for routine follow-up. As early as 1 year to assess efficacy ofnew medication therapy for treatment of osteoporosis. Impression: BMD measured at both total hips and left femoral neck at WHO categorylevel of osteoporosis. BMD measured at right femoral neck at level of osteopenia. BMD measured at AP lumbar spine at level of normal. Referred By: ARGENTINA HAMM Interpreted By: Omid Mccray MD, 07/05/2021 9:30 AM Argentina Hamm MD DEXA Final Result from Last 3 Months or Most Recently Relevant to Health Maintenance Insurance [employer] MEDICARE Care Teams Debate Director Relationship Specialty Start Date End Date Argentina Hamm MD PCP - General 04/14/12
--- OUTSIDE RECORDS SUMMARY | 2025-03-13 11:06 | XMS_ITS | Encounter Summary ---
Author Organization [facility] Address [address] [place] [address] Phone Care Team Providers Care Badger Distiller Operator Name Role Phone Cierra Robison RN Unavailable [phone] Lo Arenas RN Unavailable Bunny Hoyos MD Unavailable [phone] Nidhi Nichols Primary Care Provider [phone] Chadwick Benavides MD Unavailable [phone] Bryan English MD Unavailable [phone] Encounter Details Date Type Department Care Team (Late st Contact Info) Description 01/12/2017 Orders Only [facility] Provider, MD Neli [address] [place] [address] Social History Tobacco Use Types Packs/Day Years Used Date Smoking Tobacco: Never Assessed Comments Unknown Sex and Gender Information Value Date Recorded Sex Assigned at Not on file Legal Sex Female 11:06 AM CUSTOM MARINE CANVAS FABRICATOR Gender Identity Female 05/12/2021 9:18 PM CDT Sexual Orientation Straight 02/10/2020 9: 45 AM CDT documented as of this encounter Plan of Treatment Not on file documented as of this encounter Procedures Procedure Name Priority Date/Time Associated Diagnosis Comments CARDIOLOGY REPORT 01/12/2017 documented in this encounter Results * CARDIOLOGY REPORT (01/12/2017) Anatomical Region Laterality Modality Other Narrative 01/12/2017 Ordered by an unspecified provider. us Historical Provider [facility] [place] Final Result documented in this encounter Visit Diagnoses Not on filedocumented in this encounter Additional Health Concerns Infection Onset Date Last Indicated Resolved Time COVID: Suspected 12/26/2024 12/26/2024 12/26/2024 7:03 PM CUSTOM MARINE CANVAS FABRICATOR Ring Surveillance Comment:01/12/2025- [id number] C. Auris ring surveillance. Tamie Koch 01/12/2025 01/12/2025 01/25/2025 2:00 PM C DT documented as of this encounter Care Teams Badger Distiller Operator Relationship Specialty Start Date End Date ParentNidhi PA [address] [facility] [address] [place] [address] PCP - General Family Practice 02/17/23 Cierra Robison RN [address] [facility] [address] [place] [address] Rv Repair Technician 04/03/18 8 Lo Arenas RN [address] [facility] [address] [place] [address] Registered Nurse 04/10/18 Bunny Hoyos MD [address] [place] [address] Referring Physician General Surgery 03/11/21 11/15/23 Chadwick Benavides MD [address] [place] [address] DR [facility] [address] [place] [address] Referring Physician Cardiovascular Disease 04/19/23 Bryan English MD [address] [facility] [address] [place] [address] Consulting Physician Cardiology 02/03/25 documented as of this encounter
[2025-03-13 15:41] LABS: Albumin Level 3.4 g/dL (3.5-5.1); Anion Gap 8 mmol/L (4-12); Blood Urea Nitrogen 96 mg/dL (7-17); Carbon Dioxide 25 mmol/L (22-30); Chloride 105 mmol/L (98-107); Estimated Glomerular Filt Rate 22; Glucose 75 mg/dL (65-110); Osmolality Calculated 314 mOsm/kg (285-295); Phosphorus 3.8 mg/dL (2.5-4.5); Potassium 4.2 mmol/L (3.4-5.0); Sodium 138 mmol/L (137-145)
[2025-03-15 23:04] LABS: Tacrolimus Prograf 3.5 mcg/L
== END 2025-03-13 10:44 | disposition home or self-care (01) ==
LOC: CHSLAB 10:51
PROVIDERS: PCP Physician Assistant; Visit Provider Internal Medicine Nephrology
DX: Z94.0 Kidney transplant status (principal)
CPT/HCPCS: 36415; 80069; 80197; 85025